=== PATIENT | male | born 1990 | race Caucasian/White ===

== ENCOUNTER 2017-10-27 16:01 | Emergency (ER) | payer OTHER ==
--- OUTSIDE RECORDS SUMMARY | 2017-10-27 16:03 | XMS REPORT ---
:1990 [facility] [address] [place] [address] Dr. Santana [address] [place] [address] Care Team Providers Name Role Phone BLANCA RENNER Unavailable Unavailable Problems This patient has no known problems. Allergies, Adverse Reactions, Alerts This patient has no known allergies or adverse reactions. Medications This patient has no known medications. Results Test Description Test Time Test Comments Text Results Atomic Results Result Comments CT ABDOMEN/PELVIS 2017-06-12 NPO 4 hours. Procedure: CT ABDOMEN/PELVIS W/O W/O CONTRAST 19:08:00 Do not CONTRASTExam Date: 06/12/2017 5:36 withhold meds PMOrdering Provider: BLANCA SIMSlinical Indication: low abd painComparison: NoneTechnique: Using a helical scanner, sequential axial imaging of the abdomen andpelvis was obtained without the administration of oral or IV contrast. The examextended from the level of the lung bases superiorly to the level of the pubicsymphysis inferiorly. 2-D sagittal and coronal reconstructed images wereobtained. This exam was performed according to the departmentaldose-optimization program which includes automated exposure control, adjustmentof the mA and/or kV according to patient size and/or use of iterativereconstruction techniques.Findings:The lung bases are clear. No basilar consolidation or effusion.The liver is normal in size and density. Hepatic contour is normal. There are nohepatic masses. Calcified granulomas in the liver. No intrahepatic ductaldilatation.The gallbladder is normal in size and density. There is no evidence ofcholelithiasis or cholecystitis by CT criteria.The spleen is normal in size and density. There are no intrinsic splenic masses.Calcified granulomas in the spleen. There is no evidence of a subcapsularhematoma or fluid collection.The pancreas is normal in size and density. There are no pancreaticcalcifications or masses. There is no pancreatic ductal dilatation.The adrenal glands are normal in size bilaterally. There are no adrenal massesbilaterally.The right kidney is normal in size and shape. There are no calculi, masses, orhydronephrosis.The left kidney is normal in size and shape. There are no calculi, masses, orhydronephrosis.Aorta is normal in size and diameter. There is no aneurysm.The IVC is normal in size and location.There is no lymphadenopathy in the abdomen, pelvis, or either inguinal region.There is no small or large bowel distention. There is no bowel thickening. Thereare no inflammatory changes in the abdomen or pelvis.The appendix is visualized and normal in diameter. There is no periappendicealsoft tissue stranding. No CT findings of appendicitis.Urinary bladder has a normal appearance.The prostate gland is normal in size.No inguinal masses.There is no skeletal lesion.IMPRESSION:1. No acute inflammatory change in the abdomen or pelvis.2. Normal appendix.3. No urinary tract calculi or hydronephrosis.4. Calcified granulomas in the liver and spleen.5. Exam otherwise negative.This final report was electronically signed by Dr Enzo Cabrera MD 06/12/20177:01 PMDictated By: ENZO CABRERA.Date: 06/12/2017 19:07 [facility] 2017-06-12 18:51:00 Test Item Value Reference Range Comments Glucose (test code=GLU) 101 mg/dl 75-110 BUN (test code=BUN) 9.0 mg/dl 6.0-17.0 Creatinine (test 1.0 mg/dl 0.4-1.2 code=CREA) Sodium (test code=NA) 141 mmol/l 137-145 Potassium (test code=K) 3.8 mmol/l 3.5-5.0 Chloride (test code=CL) 106 mmol/l 98-107 CO2 (test code=CO2) 24 mmol/l 22-30 Calcium (test code=CALC) 9.3 mg/dl 8.4-10.2 T Protein (test code=TP) 7.0 gm/dl 5.1-8.7 Albumin (test code=ALB) 4.4 gm/dl 3.5-4.6 A/G Ratio (test 1.7 % 1.1-2.2 code=AGRAT) AST (SGOT) (test code=AST) 20 U/L 11-36 ALT (SGPT) (test code=ALT) 35 U/L 11-40 Alkaline Phos (test 73 U/L 47-114 code=ALKP) Total Bilirubin (test 0.3 mg/dl 0.2-1.2 code=TBIL) Globulin (test code=GLOBU) 2.6 gm/dl 2.3-3.5 Calcium, Corrected (test 9.0 mg/dl 8.4-10.2 Various formulas exist for code=CALCCORR) corrected serum calcium results, each yielding different values. This corrected result was based on the formula: Corrected Calcium=SerumCalcium + [0.8 * ( 4 - SerumAlbumin)] EGFR if >60 (test code=EGFRAA) mL/min/1.73m\S\2 EGFR if Non- >60 Estimated Glomerular [place] (test mL/min/1.73m\S\2 Filtration Rate (eGFR) code=EGFRNA) Reference Intervals Decision Points for 18 years and older and average body mass: >=60 Does not exclude kidney disease. 30 - 59 Suggests moderate chronic kidney disease and indicates the need for further investigation including assessment of proteinuria and cardiovascular factors. < 30 Usually indicates a need for referral for assessment and management of chronic kidney failure. Anion Gap (test code=GAP) 11 CBC WITH AUTO [id number] 18:02:00 Test Item Value Reference Range Comments WBC (test code=WBC) 8.43 10\S\3/ul 4.80-10.80 RBC (test code=RBC) 4.97 10\S\6/ul 4.70-6.10 Hemoglobin (test code=HGB) 15.5 gm/dl 14.0-18.0 Hematocrit (test code=HCT) 41.6 % 42.0-50.0 MCV (test code=MCV) 83.7 fL 80.0-94.0 MCH (test code=MCH) 31.2 pg 27.0-31.0 MCHC (test code=MCHC) 37.3 gm/dl 33.0-37.0 RDW (test code=RDWVC) 11.5 % 11.5-14.5 Platelet (test code=PLT) 234 10\S\3/ul 130-400 MPV (test code=MPV) 10.0 fL 7.4-10.4 NE% (test code=NE) 59.2 % 42.0-75.0 LY% (test code=LY) 33.6 % 13.0-42.0 MO% (test code=MO) 6.2 % 4.0-14.0 EO% (test code=EO) 0.7 % 1.0-3.0 BA% (test code=BA) 0.2 % 1.0-3.0 IG% (test code=IG%) 0.1 % 0.0-0.4 NRBC, Auto (test code=NRBC_AUTO) 0 /100WBC 0-2 URINALYSIS WITHOUT [id number] 17:32:00 Test Item Value Reference Range Comments Color (test code=UCOLR) Yellow Lt. Yellow Clarity (test code=UCLAR) Clear Glucose (test code=UGLUC) Negative Negative Bilirubin (test code=UBILI) Negative Negative Ketones (test code=UKET) Negative Negative Specific [place] (test code=USPGR) 1.015 1.005-1.030 Blood (test code=UBLD) Negative Negative PH (test code=UPH) 7.0 4.5-8.0 Protein (test code=UPROT) Negative Negative Urobilinogen (test code=U UROB) 0.2 E.U./dL >0.2 Nitrite (test code=UNITR) Negative Negative Leukocyte Esterase (test code=ULEUK) Negative Negative
--- OUTSIDE RECORDS SUMMARY | 2017-10-27 16:03 | XMS REPORT | Continuity of Care Document ---
:1990 Author Organization [facility] Care Team Providers Name Role Phone BLANCA RENNER Admitting Physician BLANCA RENNER Attending Physician Hospital Admission Diagnosis Code Admission Diagnosis Date [id number] Lower abdominal pain Social History Element Code Description Smoking Start Date End Date Description Status Code System Smoking Status [id number] Heavy tobacco SNOMED-CT smoker Problems Code Code System Problem Name Start Date End Date Status 85666295 SNOMED-CT Pain in pelvis 06/12/2017 Active 41785191 SNOMED-CT Finding of increased 04/09/2017 Active blood pressure 00493279 SNOMED-CT Lymphadenopathy 04/09/2017 Active 56993639 SNOMED-CT Dental caries 04/09/2017 Active 855807618 SNOMED-CT Backache 02/04/2017 Active 741750408 SNOMED-CT Tinea cruris 02/04/2017 Active Medications RxNorm Medication Dose Route Instructions Indications Start End Status Date Date 932138 Amoxicillin 875 Oral orally every No 875 MG Oral milligram 12 hours (10 Longer Tablet days) Active 1498328 cetirizine 5 milligram Oral orally every No hydrochloride day Longer 5 MG Oral Active Tablet 5553 Hydroxyzine 25 milligram Oral orally 3 to 4 No times per day Longer as needed. Active (as needed for nausea and vomiting) 5640 Ibuprofen 5 Oral orally every pain No milligram/ki 8 hours as Longer logram needed. (; Active Not To Exceed Dosing Information: 800 mg) 790982 Ibuprofen 600 600 Oral orally every pain No MG Oral Tablet milligram 4 to 6 hours Longer as needed. (4 Active days) (; do not exceed 4 doses in a 24 hour period) 2982168 Nystatin 1 Topical topically 3 No 341553 UNT/ML application times per day Longer / Active Triamcinolone Acetonide 1 MG/ML Topical Cream Allergies Code Code Allergy Type Reaction Severity Start End Status System Substance Date Date 5933 RXNorm Iodine Drug Unknown Active allergy Results Laboratory Results Order: CBC PLATELET AUTO DIFF LOINC Test Result Flag Range Unit Date 12749-3 8.43 4.80-10.80 10^3/ul 06/12/2017 1Leukocytes^^correc 17:55 clay for nucleated erythrocytes:NCnc:P t:Bld:Qn:Automated count 789-8 4.97 4.70-6.10 10^6/ul 06/12/2017 1Erythrocytes:NCnc: 17:55 Pt:Bld:Qn:Automated count 718-7 15.5 14.0-18.0 gm/dl 06/12/2017 1Hemoglobin:MCnc:Pt 17:55 :Bld:Qn 4544-3 41.6 L 42.0-50.0 % 06/12/2017 1Hematocrit:VFr:Pt: 17:55 Bld:Qn:Automated count 787-2 83.7 80.0-94.0 fL 06/12/2017 1Erythrocyte mean 17:55 corpuscular volume:EntVol:Pt:RB C:Qn:Automated count 785-6 31.2 H 27.0-31.0 pg 06/12/2017 1Erythrocyte mean 17:55 corpuscular hemoglobin:EntMass: Pt:RBC:Qn:Automated count 786-4 37.3 H 33.0-37.0 gm/dl 06/12/2017 1Erythrocyte mean 17:55 corpuscular hemoglobin concentration:MCnc: Pt:RBC:Qn:Automated count 788-0 11.5 11.5-14.5 % 06/12/2017 1Erythrocyte 17:55 distribution width:Ratio:Pt:RBC: Qn:Automated count 777-3 234 130-400 10^3/ul 06/12/2017 1Platelets:NCnc:Pt: 17:55 Bld:Qn:Automated count 07057-3 1Platelet 10.0 A 7.4-10.4 fL 06/12/2017 mean 17:55 volume:EntVol:Pt:Bl d:Qn:Automated count 770-8 59.2 42.0-75.0 % 06/12/2017 1Neutrophils/100 17:55 leukocytes:NFr:Pt:B ld:Qn:Automated count 736-9 33.6 13.0-42.0 % 06/12/2017 1Lymphocytes/100 17:55 leukocytes:NFr:Pt:B ld:Qn:Automated count 5905-5 6.2 4.0-14.0 % 06/12/2017 1Monocytes/100 17:55 leukocytes:NFr:Pt:B ld:Qn:Automated count 713-8 0.7 L 1.0-3.0 % 06/12/2017 1Eosinophils/100 17:55 leukocytes:NFr:Pt:B ld:Qn:Automated count 706-2 0.2 L 1.0-3.0 % 06/12/2017 1Basophils/100 17:55 leukocytes:NFr:Pt:B ld:Qn:Automated count 1IG% 0.1 0.0-0.4 % 06/12/2017 17:55 1NRBC, 0 0-2 /100WBC 06/12/2017 Auto 17:55 Performing Lab Footnotes:[address] [place] [address] - [id number] - [address] [place], [place] [address]- MD: DIRECTOR CARTER GOMES _ Order: CMP COMPREHENSIVE METABOLIC PANEL LOINC Test Result Flag Range Unit Date 101 75-110 mg/dl 06/12/2017 1Glucose 17:55 1BUN 9 6.0-17.0 mg/dl 06/12/2017 17:55 1 0.4-1.2 mg/dl 06/12/2017 1Creatinine 17:55 141 137-145 mmol/l 06/12/2017 1Sodium 17:55 3.8 3.5-5.0 mmol/l 06/12/2017 1Potassium 17:55 106 98-107 mmol/l 06/12/2017 1Chloride 17:55 1CO2 24 22-30 mmol/l 06/12/2017 17:55 9.3 8.4-10.2 mg/dl 06/12/2017 1Calcium 17:55 1T 7 5.1-8.7 gm/dl 06/12/2017 Protein 17:55 4.4 3.5-4.6 gm/dl 06/12/2017 1Albumin 17:55 1A/G 1.7 1.1-2.2 % 06/12/2017 Ratio 17:55 1AST 20 11-36 U/L 06/12/2017 (SGOT) 17:55 1ALT 35 11-40 U/L 06/12/2017 (SGPT) 17:55 73 47-114 U/L 06/12/2017 1Alkaline Phos 17:55 1Total 0.3 0.2-1.2 mg/dl 06/12/2017 Bilirubin 17:55 2.6 2.3-3.5 gm/dl 06/12/2017 1Globulin 17:55 9 8.4-10.2 mg/dl 06/12/2017 1Calcium, 17:55 Corrected Note: Various formulas exist for corrected serum calcium results, each yielding different values. This corrected result was based on the formula: Corrected Calcium=SerumCalcium + [0.8 * ( 4 - SerumAlbumin)] 1EGFR >60 mL/min/1.73m^2 06/12/2017 17:55 if 1EGFR >60 mL/min/1.73m^2 06/12/2017 17:55 if Non- Note: Estimated Glomerular Filtration Rate (eGFR) Reference Intervals Decision Points for 18 years and older and average body mass: >=60 Does not exclude kidney disease. 30 - 59 Suggests moderate chronic kidney disease and indicates the need for further investigation including assessment of proteinuria and cardiovascular factors. < 30 Usually indicates a need for referral for assessment and management of chronic kidney failure. 1Anion 11 06/12/2017 17:55 Gap Performing Lab Footnotes:[address] [place] [address] - [id number] - [address] [place] [address] [place]- MD: DIRECTOR CARTER GOMES _ Order: URINALYSIS W/O MICROSCOPIC EXAM LOINC Test Result Flag Range Unit Date 78-6 Yellow A Lt. Yellow 06/12/2017 1Color:Type: 17:28 Pt:Urine:Nom 5767-9 Clear 06/12/2017 1Appearance: 17:28 Aper:Pt:Urin e:Nom 2349-9 Negative Negative 06/12/2017 1Glucose:ACn 17:28 c:Pt:Urine:O rd 5770-3 Negative Negative 06/12/2017 1Bilirubin:A 17:28 Cnc:Pt:Urine :Ord:Test strip 2514-8 Negative Negative 06/12/2017 1Ketones:ACn 17:28 c:Pt:Urine:O rd:Test strip 5811-5 1.015 A 1.005-1.030 06/12/2017 1Specific 17:28 gravity:Rden :Pt:Urine:Qn :Test strip 5794-3 Negative Negative 06/12/2017 1Hemoglobin: 17:28 ACnc:Pt:Urin e:Ord:Test strip 5803-2 7.0 A 4.5-8.0 06/12/2017 1pH:LsCnc:Pt 17:28 :Urine:Qn:Te st strip 45899-3 Negative Negative 06/12/2017 1Protein:ACn 17:28 c:Pt:Urine:O rd:Test strip 5818-0 0.2 E.U./dL A 0.2 06/12/2017 1Urobilinoge 17:28 n:ACnc:Pt:Ur ine:Ord:Test strip 5802-4 Negative Negative 06/12/2017 1Nitrite:ACn 17:28 c:Pt:Urine:O rd:Test strip 5799-2 Negative Negative 06/12/2017 1Leukocyte 17:28 esterase:ACn c:Pt:Urine:O rd:Test strip Performing Lab Footnotes:1[facility] - [id number] - [address] [place] [id number] JUAN C- MD: DIRECTOR CARTER GOMES _ Radiology Results Order: [id number] CT ABDOMEN/PELVIS W/O CONTRASTExam Completion Date:06/12/2017 17:36Procedure: CT ABDOMEN/PELVIS W/O CONTRAST Exam Date: 06/12/2017 5:36 PMOrdering Provider: BLANCA Leighical Indication: low abd painComparison: NoneTechnique: Using a helical scanner, sequential axial imaging of the abdomen andpelvis was obtained without the administration of oral or IV contrast. The examextended from the level of the lung bases superiorly to the level of the pubicsymphysis inferiorly. 2-D sagittal and coronal reconstructed images wereobtained. This exam was performed according to the departmentaldose-optimization program which includes automated exposure control,adjustmentof the mA and/or kV according to patient size and/or use of iterativereconstruction techniques.Findings: The lung bases are clear. No basilar consolidation [...] pancreatic ductal dilatation.The adrenal glands are normal insize bilaterally. There are no adrenal massesbilaterally.The right kidney is normal in size and shape. There are no calculi, masses, orhydronephrosis.The left kidney is normal in size and shape. There are no calculi, masses, orhydronephrosis.Aorta is normal in size and diameter. There is no aneurysm. The IVC is normal in size and location.There [...] in size.No inguinal masses.There is no skeletal lesion.IMPRESSION: 1. No acute inflammatory change in the abdomen or pelvis.2. Normal appendix.3. No urinary tract calculi or hydronephrosis.4. Calcified granulomas in the liver and spleen.5. Exam otherwise negative.This final report was electronically signed by Dr Enzo Cabrera MD 06/12/20177:01 PMDictated By: ENZO CABRERA.Date: 06/12/2017 19:07 Vital Signs Vitals Value Date Respiratory Rate 18 06/12/2017 O2% BldC Oximetry 98 06/12/2017 BP Systolic 128 mmHg 06/12/2017 BP Diastolic 68 mmHg 06/12/2017 Height 65 in 06/12/2017 Weight Measured 174.98 lbs 06/12/2017 BSA (Body Surface Area) 1.8689 06/12/2017 BMI (Body Mass Index) 29.1 06/12/2017 Body Temperature 98 F 06/12/2017 Plan of Care No data in the system Procedures Code Code System Procedure Name Target Site Date of Procedure CT 06/12/2017 19:08 ABDOMEN/PELVIS W/O CONTRAST Encounters Date Code Diagnosis Status (ICD10) - E32391I STRAIN MUSC FASCIA TENDON ABD Active INIT Immunizations No data in the system Functional Status Code Functional/Cognitive Code System Date Status Condition 626916049 Memory function normal SNOMED-CT 06/12/2017 Active 958156847 Orientated SNOMED-CT 06/12/2017 Active 693249746 Mentally alert SNOMED-CT 06/12/2017 Active 772511892 Ability to perform SNOMED-CT 06/12/2017 Active activities of everyday life (observable entity) 907136224 Stable gait (finding) SNOMED-CT 06/12/2017 Active Hospital Discharge Instructions No data in the system
--- NOTE | 2017-10-27 17:02 | ER ---
Nurse's Notes [facility] Emergency Department Name: Sunny Angel Age: 27 yrs Sex: Male : 1990 Arrival Date: 10/27/2017 Time: 16:03 Bed 13 Private MD: Diagnosis: Acute suppurative otitis media;Bronchitis, not specified as acute or chronic Presentation: 10/27 16:05 Presenting complaint: Patient states: Cough, cold, congestion, body aches for 3-4 days. la1 Transition of care: patient was not received from another setting of care. Onset of symptoms was October 27, 2017. Initial Sepsis Screen: Does the patient meet any 2 criteria? HR > 90 bpm. Does the patient have a suspected source of infection? No. Patient's initial sepsis screen is negative. Care prior to arrival: None. 16:05 Method Of Arrival: Ambulatory la1 16:05 Acuity: GILBERT 4 la1 Historical: - Allergies: 16:06 SEAFOOD; la1 - PMHx: 16:06 Heart Murmur; la1 - Immunization history:: Adult Immunizations up to date. - Social history:: Smoking status: Patient uses tobacco products, smokes one-half pack cigarettes per day. Vital Signs: 16:06 BP 138 / 99; Pulse 105; Resp 16; Temp 97.7(TE); Pulse Ox 100% on R/A; Weight 78.02 kg; la1 Height 5 ft. 5 in. (165.10 cm); 16:06 Body Mass Index 28.62 (78.02 kg, 165.10 cm) la1 ED Course: 16:03 Patient arrived in ED. as 16:05 Yordy Stone RN is Primary Nurse. la1 16:06 Triage completed. la1 16:06 Beatriz De Jesus FNP-C is PHCP. snw 16:06 Wilner Berman MD is Attending Physician. snw 16:06 Arm band placed on left wrist. la1 Administered Medications: 17:15 Drug: Augmentin 875 mg Route: PO; ph 17:15 Drug: predniSONE 40 mg Route: PO; ph 17:15 Drug: Pepcid 20 mg Route: PO; ph Outcome: 17:01 Discharge ordered by . snw 17:45 Patient left the ED. ph Signatures: Beatriz De Jesus FNP-C [employer] LECTURER-Csnw Toma Mulligan Lee, RN RN la1 Keyanna Oshea RN RN ph
--- NOTE | 2017-10-27 17:02 | EDPHYS ---
Physician Documentation [facility] Name: Sunny Angel Age: 27 yrs Sex: Male : 1990 Arrival Date: 10/27/2017 Time: 16:03 Bed 13 Private MD: ED Physician Wilner Berman HPI: 10/27 17:13 This 27 yrs old Male presents to ER via Ambulatory with complaints of Flu snw Symptoms. 17:13 The patient or guardian reports cough, flu symptoms, arthralgias, low-grade fever, snw myalgias, no appetite. Onset: The symptoms/episode began/occurred gradually, 3 day(s) ago, and became persistent. Associated signs and symptoms: Pertinent positives: earache, fever, rhinorrhea, sore throat. Severity of symptoms: At their worst the symptoms were moderate severe. The patient has experienced similar episodes in the past. states he saw a 911 Emergency Dispatcher who is working on getting him approval for Chantix. Historical: - Allergies: 16:06 SEAFOOD; la1 - PMHx: 16:06 Heart Murmur; la1 - Immunization history:: Adult Immunizations up to date. - Social history:: Smoking status: Patient uses tobacco products, smokes one-half pack cigarettes per day. ROS: 17:11 Eyes: Negative for injury, pain, redness, and discharge. snw 17:11 Neck: Negative for injury, pain, and swelling. 17:11 Cardiovascular: Negative for chest pain, palpitations, and edema. 17:11 Abdomen/GI: Negative for abdominal pain, nausea, vomiting, diarrhea, and constipation, Back: Negative for injury and pain, : Negative for injury, bleeding, discharge, and swelling, MS/Extremity: Negative for injury and deformity, Skin: Negative for injury, rash, and discoloration. 17:11 Neuro: Negative for headache, weakness, numbness, tingling, and seizure. 17:11 Constitutional: Positive for body aches, fatigue, fever, malaise. 17:11 ENT: Positive for ear pain, sore throat. 17:11 Respiratory: Positive for cough, wheezing. Exam: 17:11 Head/Face: Normocephalic, atraumatic. Eyes: Pupils equal round and reactive to light, snw extra-ocular motions intact. Lids and lashes normal. Conjunctiva and sclera are non-icteric and not injected. Cornea within normal limits. Periorbital areas with no swelling, redness, or edema. 17:11 Neck: Trachea midline, no thyromegaly or masses palpated, and no cervical lymphadenopathy. Supple, full range of motion without nuchal rigidity, or vertebral point tenderness. No Meningismus. Chest/axilla: Normal chest wall appearance and motion. Nontender with no deformity. No lesions are appreciated. 17:11 Abdomen/GI: Soft, non-tender, with normal bowel sounds. No distension or tympany. No guarding or rebound. No evidence of tenderness throughout. Back: No spinal tenderness. No costovertebral tenderness. Full range of motion. Skin: Warm, dry with normal turgor. Normal color with no rashes, no lesions, and no evidence of cellulitis. MS/ Extremity: Pulses equal, no cyanosis. Neurovascular intact. Full, normal range of motion. Neuro: Awake and alert, GCS 15, oriented to person, place, time, and situation. Cranial nerves II-XII grossly intact. Motor strength 5/5 in all extremities. Sensory grossly intact. Cerebellar exam normal. Normal gait. 17:11 Constitutional: The patient appears alert, uncomfortable. 17:11 ENT: TM's: bulging, on the left, erythema, fluid levels, Examination of the other ear shows no obvious abnormality, Nose: is normal, Mouth: is normal, Posterior pharynx: erythema, that is moderate, that is marked, Voice: is normal. 17:11 Cardiovascular: Rate: tachycardic. 17:11 Respiratory: the patient does not display signs of respiratory distress, Respirations: normal, Breath sounds: wheezing: bronchitic cough. Vital Signs: 16:06 BP 138 / 99; Pulse 105; Resp 16; Temp 97.7(TE); Pulse Ox 100% on R/A; Weight 78.02 kg; la1 Height 5 ft. 5 in. (165.10 cm); 16:06 Body Mass Index 28.62 (78.02 kg, 165.10 cm) la1 MDM: 16:30 Patient medically screened. snw 17:10 Data reviewed: vital signs, nurses notes. Data interpreted: Pulse oximetry: on room air snw is 100 %. Interpretation: normal. Counseling: I had a detailed discussion with the patient and/or guardian regarding: the historical points, exam findings, and any diagnostic results supporting the discharge/admit diagnosis, the presence of at least one elevated blood pressure reading (>120/80) during this emergency department visit, lab results, the need for outpatient follow up, to return to the emergency department if symptoms worsen or persist or if there are any questions or concerns that arise at home, smoking cessation. Special discussion: I have referred the patient to see his PCP for further evaluation of high blood pressure. Based on the history and exam findings, there is no indication for further emergent testing or inpatient evaluation. I discussed with the patient/guardian the need to see the primary care provider for further evaluation of the symptoms. 10/27 16:06 Order name: Strep; Complete Time: 16: la10/27 16:06 Order name: Flu; Complete Time: 16: la10/27 16:33 Order name: Throat Culture EDMS Administered Medications: 17:15 Drug: Augmentin 875 mg Route: PO; ph 17:15 Drug: predniSONE 40 mg Route: PO; ph 17:15 Drug: Pepcid 20 mg Route: PO; ph Disposition: 10/27/17 17:01 Discharged to Home. Impression: Acute suppurative otitis media, Bronchitis, not specified as acute or chronic. - Condition is Stable. - Discharge Instructions: Acute Bronchitis, Otitis Media, Adult, Fever, Adult, Hypertension, How to Use an Inhaler, Upper Respiratory Infection, Adult, Cool Mist Vaporizers, Cough, Adult, Rehydration, Adult. - Prescriptions for Augmentin 875- 125 mg Oral Tablet - take 1 tablet by ORAL route every 12 hours for 10 days; 20 tablet. Prednisone 20 mg Oral Tablet - take 2 tablet by ORAL route once daily for 5 days; 10 tablet. Albuterol Sulfate 90 mcg/actuation - inhale 1-2 puff by INHALATION route every 4-6 hours; 1 Inhaler. - Work release form, Medication Reconciliation Form, Thank You Letter, Antibiotic Education, Prescription Opioid Use form. - Follow up: Private Physician; When: 2 - 3 days; Reason: Recheck today's complaints, Continuance of care, Re-evaluation by your physician. Follow up: Emergency Department; When: As needed; Reason: Worsening of condition. Signatures: Dispatcher [employer] [facility]DC Beatriz De Jesus FNP-C FNP-Csnw Yordy Stone, RN RN la1 Keyanna Oshea, RN RN ph
[2017-10-27] MEDS ORDERED: FAMOTIDINE 20 MG TAB ONE (17:04)
[2017-10-27] MEDS ORDERED: AMOX/K CLAV 875 MG TAB ONE (17:04)
[2017-10-27] MEDS ORDERED: predniSONE 20 MG TAB ONE (17:04)
[2017-10-27 17:49] VITALS: BP 138/99; TEMP 97.7; O2SAT 100
== END 2017-10-27 17:45 | disposition home or self-care (01) ==
LOC: ER 16:01
DX: J40 Bronchitis, not specified as acute or chronic (principal); H66.002 Acute suppurative otitis media without spontaneous rupture of ear drum, left ear; Z91.013 Allergy to seafood
CPT/HCPCS: 87070; 87081; 87804; 99282; J7512

== ENCOUNTER 2017-11-23 14:43 | Emergency (ER) | payer SELFPAY ==
--- OUTSIDE RECORDS SUMMARY | 2017-11-23 14:44 | XMS REPORT ---
:1990 [facility] Address [address] [place] [address] Dr. Santana [address] [place] [address] Care Team Providers Name Role Phone BLANCA [...] 06/12/20177:01 PMDictated By: ENZO CABRERA.Date: 06/12/2017 19:07 [facility] 2017-06-12 18:51:00 Test Item Value Reference Range [...] ( 4 - SerumAlbumin)] EGFR if >60 mL/min/1.73m\S\2 (test code=EGFRAA) EGFR if Non- >60 mL/min/1.73m\S\2 Estimated Glomerular Salvadorean (test Filtration Rate (eGFR) code=EGFRNA) Reference Intervals Decision [...] Gap (test code=GAP) 11 CBC WITH AUTO [id number] 18:02:00 Test Item Value Reference Range Comments [...] (test code=NRBC_AUTO) 0 /100WBC 0-2 URINALYSIS WITHOUT [id number] 17:32:00 Test Item Value Reference Range Comments Color (test code=UCOLR) Yellow Lt. Yellow Clarity (test code=UCLAR) Clear Glucose (test code=UGLUC) Negative Negative Bilirubin (test code=UBILI) Negative Negative Ketones (test code=UKET) Negative Negative Specific [place] (test code=USPGR) 1.015 1.005-1.030 Blood (test code=UBLD) Negative Negative PH (test code=UPH) 7.0 4.5-8.0 Protein (test code=UPROT) Negative Negative Urobilinogen (test code=U UROB) 0.2 E.U./dL >0.2 Nitrite (test code=UNITR) Negative Negative Leukocyte Esterase (test code=ULEUK) Negative Negative
--- NOTE | 2017-11-23 15:21 | ER ---
Nurse's Notes [facility] Name: Sunny Angel Age: 27 yrs Sex: Male : 1990 Arrival Date: 11/23/2017 Time: 14:47 Bed Waiting Private MD: Diagnosis: ED Course: 11/23 14:47 Patient arrived in ED. sb2 14:55 Patient's name was called from ER lobby. No response. lk1 15:09 Patient's name was called from ER lobby. No response. lk1 15:20 Patient's name was called from ER lobby. No response. lk1 Administered Medications: No medications were administered Outcome: 15:21 Patient left the ED. lk1 Signatures: Viridiana Delgadillo RN RN lk1 Georgie Manley sb2
== END 2017-11-23 15:21 | disposition left against medical advice (07) ==
LOC: ER 14:43
DX: Z02.9 Encounter for administrative examinations, unspecified (principal)

== ENCOUNTER 2017-11-30 13:12 | Emergency (ER) | payer OTHER ==
--- OUTSIDE RECORDS SUMMARY | 2017-11-30 13:14 | XMS REPORT ---
:1990 [facility] Address [address] [place] [address] Dr. Santana [address] [place] [id number] Care Team Providers Name Role Phone BLANCA [...] 06/12/20177:01 PMDictated By: ENZO CABRERA.Date: 06/12/2017 19:07 [facility] 2017-06-12 18:51:00 Test Item Value Reference Range [...] EGFR if Non- >60 mL/min/1.73m\S\2 Estimated Glomerular Iraqi (test Filtration Rate (eGFR) code=EGFRNA) Reference Intervals [...] Gap (test code=GAP) 11 CBC WITH AUTO [id number] 18:02:00 Test Item Value Reference Range Comments [...] (test code=NRBC_AUTO) 0 /100WBC 0-2 URINALYSIS WITHOUT [id number] 17:32:00 Test Item Value Reference Range Comments Color (test code=UCOLR) Yellow Lt. Yellow Clarity (test code=UCLAR) Clear Glucose (test code=UGLUC) Negative Negative Bilirubin (test code=UBILI) Negative Negative Ketones (test code=UKET) Negative Negative Specific [place] (test code=USPGR) 1.015 1.005-1.030 Blood (test code=UBLD) Negative Negative PH (test code=UPH) 7.0 4.5-8.0 Protein (test code=UPROT) Negative Negative Urobilinogen (test code=U UROB) 0.2 E.U./dL >0.2 Nitrite (test code=UNITR) Negative Negative Leukocyte Esterase (test code=ULEUK) Negative Negative
[2017-11-30 14:24] LABS: Urine Blood NEGATIVE (NEG); Urine Glucose NEGATIVE (NEG); Urine Protein NEGATIVE (NEG); Urine pH 7.5 (5.0-7.0)
[2017-11-30] MEDS ORDERED: NA CHLORIDE 0.9% 1,000 ML ONE (14:25)
[2017-11-30] MEDS ORDERED: ONDANSETRON 4 MG/2 ML VIAL ONE (14:25)
[2017-11-30] MEDS ORDERED: KETOROLAC 30 MG/ML INJ ONE (14:25)
--- NOTE | 2017-11-30 14:33 | RAD REPORT ---
EXAM DESCRIPTION: CT - Stone Protocol - 11/30/2017 2:18 pm CLINICAL HISTORY: Flank pain. COMPARISON: None. TECHNIQUE: Axial images were obtained without oral or IV contrast. Lack of contrast limits solid org an and vascular assessment. The [id number] spans the entirety of the system partially obscuring uppermost abdomen and lung bases. Coronal reformatted images were obtained and reviewed. All CT scans are performed using dose optimization technique as appropriate and may include automated exposure control or mA/KV adjustment according to patient size. FINDINGS: The lower lung manning are clear. Imaged portions of the liver and spleen show no suspicious findings on non-contrast imaging. The panc reas and adrenal glands are normal.Small fat containing umbilical hernia. No pathologic lymphadenopat hy in the abdomen or pelvis. No urinary tract stones or obstructive uropathy. No bowel obstruction, free air, free fluid or abscess. Normal appendix noted. No significant bony abnormality. IMPRESSION: No urinary tract stones or obstructive uropathy.
[2017-11-30 14:38] LABS: Absolute Lymphocytes (CBC) 2.8 K/uL (0.7-4.9); Absolute Monocytes 0.7 K/uL (0.1-1.3); Absolute Neutrophil 5.6 K/uL (1.8-8.0); Basophils % 0.5 % (0-1.3); Eosinophils % 1.1 % (0-4.4); Hematocrit 45.1 % (39.6-49.0); Lymphocytes % 30.3 % (15.3-44.8); MCH 30.5 pg (27.0-35.0); MCV 87.9 fL (80-100); MPV 8.5 fL (7.6-11.3); Monocytes % 7.6 % (3.3-12.3); RBC Red Blood Cell Count 5.14 M/uL (4.33-5.43)
[2017-11-30 15:02] LABS: Bicarbonate 24 mEq/L (21-31); Glucose Level 95 mg/dL (65-120); Lipase 21 U/L (22-51); Potassium 3.9 mEq/L (3.6-5.0); Sodium Level 136 mEq/L (135-145)
[2017-11-30 15:09] LABS: ALT/SGPT 39 IU/L (10-60); AST/SGOT 25 IU/L (10-42); Albumin 4.2 g/dL (3.2-5.5); Alkaline Phosphatase 66 IU/L (42-121); Amylase Level 29 U/L (28-100); BUN Blood Urea Nitrogen 14 mg/dL (6-20); Bilirubin Direct 0.1 mg/dL (0-0.2); Bilirubin Total 0.5 mg/dL (0.3-1.2); Protein, Total 6.9 g/dL (6.0-8.3)
--- NOTE | 2017-11-30 15:22 | EDPHYS ---
Physician Documentation [facility] Name: Sunny Angel Age: 27 yrs Sex: Male : 1990 Arrival Date: 11/30/2017 Time: 13:15 Bed 30 Private MD: Eladio Berman E ED Physician Tyrone Harrison HPI: 11/30 14:16 This 27 yrs old Male presents to ER via Ambulatory with complaints of kb Abdominal Pain. 14:16 The patient presents with abdominal pain that is diffuse. Onset: The symptoms/episode kb began/occurred last night. The symptoms do not radiate. Associated signs and symptoms: Pertinent positives: nausea, Pertinent negatives: anorexia, blood in stools, chest pain, constipation, diarrhea, dysuria, fever, headache, hematuria, palpitations, shortness of breath, testicular pain, vomiting, vomiting blood. The symptoms are described as intermittent. Modifying factors: The symptoms are alleviated by nothing, the symptoms are aggravated by nothing. Severity of pain: At its worst the pain was mild moderate in the emergency department the pain is unchanged. The patient has not experienced similar symptoms in the past. The patient has not recently seen a physician. Historical: - Allergies: 13:27 SEAFOOD; ph - Home Meds: 13:27 Chantix oral oral [Active]; ph - PMHx: 13:27 Heart Murmur; Hernia; ph - PSHx: 13:27 oral sx; ph - Immunization history:: Adult Immunizations unknown. - Social history:: Smoking status: Patient uses tobacco products, smokes one-half pack cigarettes per day. - Ebola Screening: : No symptoms or risks identified at this time. ROS: 13:39 Constitutional: Negative for fever, chills, and weight loss, Cardiovascular: Negative kb for chest pain, palpitations, and edema, Respiratory: Negative for shortness of breath, cough, wheezing, and pleuritic chest pain, Back: Negative for injury and pain, : Negative for injury, bleeding, discharge, and swelling, MS/Extremity: Negative for injury and deformity, Skin: Negative for injury, rash, and discoloration, Neuro: Negative for headache, weakness, numbness, tingling, and seizure. 13:39 Abdomen/GI: Positive for abdominal pain, nausea, Negative for vomiting, diarrhea, constipation, abdominal cramps, abdominal distension, anorexia. Exam: 13:39 Constitutional: This is a well developed, well nourished patient who is awake, alert, kb and in no acute distress. Head/Face: Normocephalic, atraumatic. Chest/axilla: Normal chest wall appearance and motion. Nontender with no deformity. No lesions are appreciated. Cardiovascular: Regular rate and rhythm with a normal S1 and S2. No gallops, murmurs, or rubs. Normal PMI, no JVD. No pulse deficits. Respiratory: Lungs have equal breath sounds bilaterally, clear to auscultation and percussion. No rales, rhonchi or wheezes noted. No increased work of breathing, no retractions or nasal flaring. Back: No spinal tenderness. No costovertebral tenderness. Full range of motion. Skin: Warm, dry with normal turgor. Normal color with no rashes, no lesions, and no evidence of cellulitis. MS/ Extremity: Pulses equal, no cyanosis. Neurovascular intact. Full, normal range of motion. Neuro: Awake and alert, GCS 15, oriented to person, place, time, and situation. Cranial nerves II-XII grossly intact. Motor strength 5/5 in all extremities. Sensory grossly intact. Cerebellar exam normal. Normal gait. 13:39 Abdomen/GI: Inspection: abdomen appears normal, Bowel sounds: normal, Palpation: soft, in all quadrants, nontender, in the right lower quadrant, moderate abdominal tenderness, in the right upper quadrant, left upper quadrant and left lower quadrant. Vital Signs: 13:27 BP 127 / 84; Pulse 98; Resp 18; Temp 97.8; Pulse Ox 98% on R/A; Weight 81.65 kg; Height ph 5 ft. 5 in. (165.10 cm); Pain 7/10; 14:18 BP 120 / 89; Pulse 82; Resp 16; Pulse Ox 96% on R/A; kr2 16:36 BP 118 / 76; Pulse 88; Resp 17; Pulse Ox 98% on R/A; kr2 13:27 Body Mass Index 29.95 (81.65 kg, 165.10 cm) ph MDM: 13:31 Patient medically screened. [facility] 13:47 Data reviewed: vital signs, nurses notes. Data interpreted: Pulse oximetry: on room air kb is 98 %. Interpretation: normal. 15:20 Counseling: I had a detailed discussion with the patient and/or guardian regarding: the kb historical points, exam findings, and any diagnostic results supporting the discharge/admit diagnosis, lab results, radiology results, the need for outpatient follow up, a family practitioner, to return to the emergency department if symptoms worsen or persist or if there are any questions or concerns that arise at home. 11/30 13:38 Order name: Amylase, Serum; Complete Time: 15:20 kb 11/30 13:38 Order name: Basic Metabolic Panel; Complete Time: 15:20 kb 11/30 13:38 Order name: CBC with Diff; Complete Time: 14:45 kb 11/30 13:38 Order name: Hepatic Function; Complete Time: 15:20 kb 11/30 13:38 Order name: Lipase; Complete Time: 15:20 kb 11/30 14:22 Order name: Urine Dipstick--Ancillary (enter results); Complete Time: 14:30 ag 11/30 13:38 Order name: IV Saline Lock; Complete Time: 14:14 kb 11/30 13:38 Order name: Labs collected and sent; Complete Time: 14:14 kb 11/30 13:38 Order name: Urine Dipstick-Ancillary (obtain specimen); Complete Time: 14:14 kb 11/30 14:07 Order name: CT Stone Protocol; Complete Time: 14:34 kb Administered Medications: 14:28 Drug: TORadol 30 mg Route: IVP; Site: left antecubital; kr2 16:37 Follow up: Response: No adverse reaction; Pain is decreased kr2 14:29 Drug: NS 0.9% 1000 ml Route: IV; Rate: 1000 ml; Site: left antecubital; kr2 16:37 Follow up: Response: No adverse reaction; IV Status: Completed infusion kr2 14:29 Drug: Zofran 4 mg Route: IVP; Site: left antecubital; kr2 16:37 Follow up: Response: No adverse reaction kr2 Disposition: 11/30/17 15:21 Discharged to Home. Impression: Generalized abdominal pain. - Condition is Stable. - Discharge Instructions: Abdominal Pain, Adult, [id number]. - Prescriptions for Bentyl 20 mg Oral Tablet - take 1 tablet by ORAL route every 6 hours As needed; 20 tablet. Zofran 4 mg Oral Tablet - take 1 tablet by ORAL route every 6 hours As needed; 20 tablet. - Medication Reconciliation Form, Thank You Letter, Antibiotic Education, Prescription Opioid Use form. - Follow up: Emergency Department; When: As needed; Reason: Worsening of condition. Follow up: Private Physician; When: 2 - 3 days; Reason: Recheck today's complaints, Continuance of care, Re-evaluation by your physician. Addendum: 12/04/2017 09:03 Co-signature as Attending Physician, Tyrone Harrison MD I agree with the assessment and c davila plan of care. Signatures: Dispatcher [employer] EDMS Latasha Gonzales, SUPERVISOR LAUNDRY-C SUPERVISOR LAUNDRY-Tyrone Jackson MD MD cha Hall, Patricia, RN RN Kendy Berger RN RN kr2 Corrections: (The following items were deleted from the chart) 11/30 16:38 15:21 11/30/2017 15:21 Discharged to Home. Impression: Generalized abdominal pain. kr2 Condition is Stable. Forms are Medication Reconciliation Form, Thank You Letter, Antibiotic Education, Prescription Opioid Use. Follow up: Emergency Department; When: As needed; Reason: Worsening of condition. Follow up: Private Physician; When: 2 - 3 days; Reason: Recheck today's complaints, Continuance of care, Re-evaluation by your physician. kb
--- NOTE | 2017-11-30 15:22 | ER ---
Nurse's Notes [facility] Name: Sunny Anegl Age: 27 yrs Sex: Male : 1990 Arrival Date: 11/30/2017 Time: 13:15 Bed 30 Private MD: Eladio Berman E Diagnosis: Generalized abdominal pain Presentation: 11/30 13:22 Presenting complaint: Patient states: " I woke up yesterday morning w/ excruciating ph abdominal pain, it hurts all over and on both sides of my ribs, and when I take a deep breath my lungs hurt." Pt reports diffuse abdominal pain that is worse when standing, also c/o nausea, denies V/D, reports last BM 2 days ago. States, " I've been feeling jittery too.". Transition of care: patient was not received from another setting of care. Onset of symptoms was November 30, 2017. Risk Assessment: Do you want to hurt yourself or someone else? Patient reports no desire to harm self or others. Initial Sepsis Screen: Does the patient meet any 2 criteria? No. Patient's initial sepsis screen is negative. Does the patient have a suspected source of infection? No. Patient's initial sepsis screen is negative. Care prior to arrival: None. 13:22 Method Of Arrival: Ambulatory ph 13:22 Acuity: GILBERT 3 ph Triage Assessment: 14:15 General: Appears in no apparent distress. comfortable, well groomed, well developed, kr2 well nourished, Behavior is calm, cooperative, appropriate for age. 14:16 Pain: Complains of pain in abdomen Pain currently is 7 out of 10 on a pain scale. kr2 Quality of pain is described as sharp, Is continuous. GI: Abdomen is flat, non-distended. Historical: - Allergies: 13:27 SEAFOOD; ph - Home Meds: 13:27 Chantix oral oral [Active]; ph - PMHx: 13:27 Heart Murmur; Hernia; ph - PSHx: 13:27 oral sx; ph - Immunization history:: Adult Immunizations unknown. - Social history:: Smoking status: Patient uses tobacco products, smokes one-half pack cigarettes per day. - Ebola Screening: : No symptoms or risks identified at this time. Screenin:14 Abuse screen: Denies threats or abuse. Denies injuries from another. Nutritional kr2 screening: No deficits noted. Tuberculosis screening: No symptoms or risk factors identified. Fall Risk None identified. Assessment: 14:16 GI: Bowel sounds present X 4 quads. Abd is soft and non tender X 4 quads. kr2 14:17 General: Appears in no apparent distress. comfortable, well groomed, well developed, kr2 well nourished, Behavior is calm, cooperative, appropriate for age. Pain: Complains of pain in abdomen Pain currently is 7 out of 10 on a pain scale. Neuro: Level of Consciousness is awake, alert, obeys commands, Oriented to person, place, time, situation, Appropriate for age. Cardiovascular: Capillary refill < 3 seconds in bilateral fingers Patient's skin is warm and dry. Respiratory: Airway is patent Respiratory effort is even, unlabored, Respiratory pattern is regular, symmetrical. : Urine is cloudy. EENT: Oral mucosa is moist. Derm: Skin is intact, is healthy with good turgor, Skin is pink, warm \\T\\ dry. Musculoskeletal: Circulation, motion, and sensation intact. 15:15 Reassessment: Patient appears in no apparent distress at this time. Patient and/or kr2 family updated on plan of care and expected duration. Pain level reassessed. Patient is alert, oriented x 3, equal unlabored respirations, skin warm/dry/pink. Patient states feeling better. 16:35 Reassessment: Patient appears in no apparent distress at this time. Patient and/or kr2 family updated on plan of care and expected duration. Pain level reassessed. Patient is alert, oriented x 3, equal unlabored respirations, skin warm/dry/pink. Patient states symptoms have improved. Vital Signs: 13:27 BP 127 / 84; Pulse 98; Resp 18; Temp 97.8; Pulse Ox 98% on R/A; Weight 81.65 kg; Height ph 5 ft. 5 in. (165.10 cm); Pain 7/10; 14:18 BP 120 / 89; Pulse 82; Resp 16; Pulse Ox 96% on R/A; kr2 16:36 BP 118 / 76; Pulse 88; Resp 17; Pulse Ox 98% on R/A; kr2 13:27 Body Mass Index 29.95 (81.65 kg, 165.10 cm) ph ED Course: 13:15 Patient arrived in ED. mr 13:15 Eladio Berman MD is Private Physician. mr 13:25 Triage completed. ph 13:28 Arm band placed on. ph 13:30 Latasha Gonzales FNP-C is [facility]. kb 13:30 Tyrone Harrison MD is Attending Physician. kb 13:49 Kendy Shah, SAM is Primary Nurse. kr2 14:00 Inserted saline lock: 22 gauge in left antecubital area, using aseptic technique. Blood kr2 collected. 14:[address] via wheelchair. vm2 14:16 Patient has correct armband on for positive identification. Bed in low position. Call kr2 light in reach. Side rails up X 1. Pulse ox on. NIBP on. Door closed. Warm blanket given. Head of bed elevated. 14:17 CT completed. Patient tolerated procedure well. Patient moved back from CT. vm2 14:18 CT Stone Protocol In Process Unspecified. EDMS 16:38 No provider procedures requiring assistance completed. IV discontinued, intact, kr2 bleeding controlled, No redness/swelling at site. Pressure dressing applied. Administered Medications: 14:28 Drug: TORadol 30 mg Route: IVP; Site: left antecubital; kr2 16:37 Follow up: Response: No adverse reaction; Pain is decreased kr2 14:29 Drug: NS 0.9% 1000 ml Route: IV; Rate: 1000 ml; Site: left antecubital; kr2 16:37 Follow up: Response: No adverse reaction; IV Status: Completed infusion kr2 14:29 Drug: Zofran 4 mg Route: IVP; Site: left antecubital; kr2 16:37 Follow up: Response: No adverse reaction kr2 Outcome: 15:21 Discharge ordered by . kb 16:38 Discharged to home ambulatory, with friend. kr2 16:38 Condition: good 16:38 Discharge instructions given to patient, family, Instructed on discharge instructions, follow up and referral plans. medication usage, Demonstrated understanding of instructions, follow-up care, medications, Prescriptions given X 2. 16:38 Patient left the ED. kr2 Signatures: Dispatcher [employer] EDMS Latasha Gonzales FNP-C SENIOR ASIC DESIGN ENGINEER-Gayla Boston mr Keyanna Oshea, RN RN Kell Arboleda 2 Kendy Shah, RN RN kr2
[2017-11-30 16:46] VITALS: TEMP 97.8
[2017-11-30 16:48] VITALS: BP 118/76; O2SAT 98
== END 2017-11-30 16:38 | disposition home or self-care (01) ==
LOC: ER 13:12
DX: R10.84 Generalized abdominal pain (principal); R01.1 Cardiac murmur, unspecified; F17.210 Nicotine dependence, cigarettes, uncomplicated; Z91.013 Allergy to seafood
CPT/HCPCS: 36415; 74176; 76377; 80048; 80076; 81003; 82150; 83690; 85025; 96361; 96374; 96375; 99284; J2405; J7030

== ENCOUNTER 2018-01-05 12:40 | Emergency (ER) | payer OTHER ==
--- OUTSIDE RECORDS SUMMARY | 2018-01-05 12:43 | XMS REPORT ---
:1990 [facility] Address [address] [place] [address] Dr. [address] [place] [address] Care Team Providers Name Role Phone BLANCA [...] 06/12/20177:01 PMDictated By: ENZO CABRERA.Date: 06/12/2017 19:07 [facility] 2017-06-12 18:51:00 Test Item Value Reference [...] EGFR if Non- >60 mL/min/1.73m\S\2 Estimated Glomerular Israeli (test Filtration Rate (eGFR) code=EGFRNA) Reference Intervals [...] Gap (test code=GAP) 11 CBC WITH AUTO [id number] 18:02:00 Test Item Value Reference Range Comments [...] (test code=NRBC_AUTO) 0 /100WBC 0-2 URINALYSIS WITHOUT [id number] 17:32:00 Test Item Value Reference Range Comments Color (test code=UCOLR) Yellow Lt. Yellow Clarity (test code=UCLAR) Clear Glucose (test code=UGLUC) Negative Negative Bilirubin (test code=UBILI) Negative Negative Ketones (test code=UKET) Negative Negative Specific [place] (test code=USPGR) 1.015 1.005-1.030 Blood (test code=UBLD) Negative Negative PH (test code=UPH) 7.0 4.5-8.0 Protein (test code=UPROT) Negative Negative Urobilinogen (test code=U UROB) 0.2 E.U./dL >0.2 Nitrite (test code=UNITR) Negative Negative Leukocyte Esterase (test code=ULEUK) Negative Negative
[2018-01-05] MEDS ORDERED: MECLIZINE HCL 12.5 MG TAB ONE (13:35)
[2018-01-05] MEDS ORDERED: ONDANSETRON 4 MG (ODT) TAB ONE (13:36)
--- NOTE | 2018-01-05 14:00 | RAD REPORT ---
EXAM DESCRIPTION: CT - Head Brain Wo Cont - 01/05/2018 1:41 pm CLINICAL HISTORY: Dizziness, facial pain, headache COMPARISON: CT study December 2012 TECHNIQUE: Axial 5 mm thick images of the head were obtained without IV contrast. All CT scans are performed using dose optimization technique as appropriate and may include automated exposure control or mA/KV adjustment according to patient size. FINDINGS: No intracranial hemorrhage, mass, edema or shift of mid-line structures. No acute infarcti on changes seen. No abnormal extra-axial fluid collections. Ventricles are normal. Mastoid air cells and visualized portions of the paranasal sinuses are clear. No acute bony findings. IMPRESSION: Negative non-contrast CT head examination. No significant change from comparison.
--- NOTE | 2018-01-05 15:33 | ER ---
Nurse's Notes [facility] Name: Sunny Angel Age: 27 yrs Sex: Male : 1990 Arrival Date: 01/05/2018 Time: 12:43 Bed 27 Private MD: Eladio Berman E Diagnosis: vertigo;paresthesia;trapezius pain Presentation: 01/05 12:48 Presenting complaint: Patient states: "I got a back injury awhile back, and because of aj1 it I had to come in a 3 months ago for my neck. Then last night my neck starting hurting again really bad and I couldn't sleep. I woke up this morning with the whole left side of my face hurting and the back of my head feels like its falling asleep. I'm really dizzy whenever I stand up". Transition of care: patient was not received from another setting of care. Onset of symptoms was January 04, 2018. Risk Assessment: Do you want to hurt yourself or someone else? Patient reports no desire to harm self or others. Initial Sepsis Screen: Does the patient meet any 2 criteria? No. Patient's initial sepsis screen is negative. Does the patient have a suspected source of infection? No. Patient's initial sepsis screen is negative. Care prior to arrival: None. 12:48 Method Of Arrival: Ambulatory aj1 12:48 Acuity: GILBERT 3 aj1 Triage Assessment: 12:52 General: Appears in no apparent distress. uncomfortable, Behavior is calm, cooperative, aj1 appropriate for age. Pain: Complains of pain in neck Pain does not radiate. Pain currently is 7 out of 10 on a pain scale. Neuro: Level of Consciousness is awake, alert, obeys commands, Oriented to person, place, time, situation, Moves all extremities. Full function Gait is steady, Speech is normal, Facial symmetry appears normal, Pupils are PERRLA, paresthesias in scalp. Cardiovascular: Patient's skin is warm and dry. Respiratory: Airway is patent Respiratory effort is even, unlabored, Respiratory pattern is regular, symmetrical. Historical: - Allergies: 12:52 SEAFOOD; aj1 12:52 Lasix; aj1 - Home Meds: 12:52 None [Active]; aj1 - PMHx: 12:52 Heart Murmur; Hernia; aj1 - PSHx: 12:52 oral surgery; aj1 - Immunization history:: Flu vaccine is not up to date. - Social history:: Smoking status: Patient uses tobacco products, smokes one-half pack cigarettes per day. - Ebola Screening: : Patient denies travel to an Ebola-affected area in the 21 days before illness onset. Screenin:55 Abuse screen: Denies threats or abuse. Denies injuries from another. Nutritional kr2 screening: No deficits noted. Tuberculosis screening: No symptoms or risk factors identified. Fall Risk None identified. Assessment: 13:00 General: Appears in no apparent distress. comfortable, well groomed, well developed, kr2 well nourished, Behavior is calm, cooperative, appropriate for age. Pain: Complains of pain in scalp and neck Pain currently is 7 out of 10 on a pain scale. Quality of pain is described as aching, tingling, Is continuous, Alleviated by nothing. Neuro: Level of Consciousness is awake, alert, obeys commands, Oriented to person, place, time, situation, Appropriate for age Excellence Consultant are equal bilaterally Speech is normal, Facial symmetry appears normal, Pupils are PERRLA, Reports dizziness, headache paresthesias in scalp. Cardiovascular: Capillary refill < 3 seconds in bilateral fingers Patient's skin is warm and dry. Respiratory: Airway is patent Respiratory effort is even, unlabored, Respiratory pattern is regular, symmetrical. GI: Abdomen is flat, non-distended. : No signs and/or symptoms were reported regarding the genitourinary system. EENT: Oral mucosa is moist. Derm: Skin is intact, is healthy with good turgor, Skin is pink, warm \\T\\ dry. Musculoskeletal: Circulation, motion, and sensation intact. Range of motion: intact in all extremities. 14:00 Reassessment: Patient appears in no apparent distress at this time. Patient and/or kr2 family updated on plan of care and expected duration. Pain level reassessed. Patient is alert, oriented x 3, equal unlabored respirations, skin warm/dry/pink. 15:05 Reassessment: Patient appears in no apparent distress at this time. Patient and/or kr2 family updated on plan of care and expected duration. Pain level reassessed. Patient is alert, oriented x 3, equal unlabored respirations, skin warm/dry/pink. Patient states feeling better. Vital Signs: 12:52 BP 141 / 102; Pulse 93; Resp 18; Temp 98.0(O); Pulse Ox 97% on R/A; Weight 79.38 kg; aj1 Height 5 ft. 5 in. (165.10 cm); Pain 7/10; 13:45 BP 115 / 70; Pulse 70; Resp 17; Pulse Ox 99% on R/A; kr2 14:52 BP 112 / 71; Pulse 66; Resp 17; Pulse Ox 98% on R/A; kr2 15:45 BP 129 / 80; Pulse 72; Resp 17; Pulse Ox 100% ; kr2 12:52 Body Mass Index 29.12 (79.38 kg, 165.10 cm) aj1 ED Course: 12:43 Patient arrived in ED. sb2 12:45 Eladio Berman MD is Private Physician. sb2 12:51 Triage completed. aj1 12:52 Arm band placed on Patient placed in an internal wait recliner, Patient notified of aj1 wait time. 12:59 Kendy Shah RN is Primary Nurse. kr2 13:00 Casey Castaneda PA is PHCP. jmm 13:00 Fredi Kelley MD is Attending Physician. jmm 13:40 CT completed. Patient moved to CT via wheelchair. Patient moved back from CT. cw1 13:41 CT Head Brain wo Cont In Process Unspecified. EDMS 14:55 Patient has correct armband on for positive identification. Bed in low position. Call kr2 light in reach. Side rails up X 1. Pulse ox on. NIBP on. Door closed. Warm blanket given. Head of bed elevated. 15:33 Hector Beal MD is Referral Physician. jmm 15:44 No provider procedures requiring assistance completed. Patient did not have IV access kr2 during this emergency room visit. Administered Medications: 13:35 Drug: Meclizine 50 mg Route: PO; kr2 15:14 Follow up: Response: No adverse reaction kr2 13:35 Drug: Zofran 4 mg Route: PO; kr2 15:14 Follow up: Response: No adverse reaction; Nausea is decreased kr2 Outcome: 15:33 Discharge ordered by . jmm 15:44 Discharged to home ambulatory, with family. kr2 15:44 Condition: good 15:44 Discharge instructions given to patient, family, Instructed on discharge instructions, follow up and referral plans. medication usage, Demonstrated understanding of instructions, follow-up care, medications, Prescriptions given X 2. 15:45 Patient left the ED. kr2 Signatures: Dispatcher [employer] EDMS Haylee Cohen, RN RN aj1 Casey Castaneda PA PA jmm Woodley, Crystal cw1 Kendy Shah RN RN kr2 Georgie Manley sb2
--- NOTE | 2018-01-05 15:34 | EDPHYS ---
Physician Documentation [facility] Name: Sunny Angel Age: 27 yrs Sex: Male : 1990 Arrival Date: 01/05/2018 Time: 12:43 Bed 27 Private MD: Eladio Berman E ED Physician Fredi Kelley HPI: 01/05 13:29 This 27 yrs old Male presents to ER via Ambulatory with complaints of jmm Dizziness, Neck Pain, >24Hrs Old, Numbness Of Face. 13:29 The patient presents with dizziness, feeling off balance. Onset: The symptoms/episode jmm began/occurred acutely, this morning. Associated signs and symptoms: Pertinent positives: numbness. This is a 27 year old male with a history of heart murmur presents to the ED with dizziness beginning just prior to arrival. Patient states he developed left lateral neck pain last night and awoke with numbness to the left side of his face. Patient denies weakness to the left side of his body. Denies chest pain or shortness of breath. . Historical: - Allergies: 12:52 SEAFOOD; aj1 12:52 Lasix; aj1 - Home Meds: 12:52 None [Active]; aj1 - PMHx: 12:52 Heart Murmur; Hernia; aj1 - PSHx: 12:52 oral surgery; aj1 - Immunization history:: Flu vaccine is not up to date. - Social history:: Smoking status: Patient uses tobacco products, smokes one-half pack cigarettes per day. - Ebola Screening: : Patient denies travel to an Ebola-affected area in the 21 days before illness onset. ROS: 13:29 Constitutional: Negative for fever, chills, and weight loss, Cardiovascular: Negative jmm for chest pain, palpitations, and edema, Respiratory: Negative for shortness of breath, cough, wheezing, and pleuritic chest pain. 13:29 Neuro: Positive for dizziness, headache. 13:29 Neuro: Positive for numbness. 13:29 All other systems are negative. Exam: 13:29 Head/Face: atraumatic. jmm 13:29 Constitutional: The patient appears in no acute distress, alert, awake. 13:29 Eyes: Nystagmus: horizontal on gaze to the left. . 13:29 Cardiovascular: Rate: normal, Rhythm: regular, Pulses: no pulse deficits are appreciated. 13:29 Respiratory: the patient does not display signs of respiratory distress, Respirations: normal, Breath sounds: are clear throughout. 13:29 Musculoskeletal/extremity: ROM: intact in all extremities. 13:29 Skin: Appearance: Color: normal in color. 13:29 Neuro: Orientation: is normal, Mentation: is normal, Memory: is normal. 13:29 Neuro: Cerebellar function: normal finger to nose testing. 13:29 Psych: Behavior/mood is pleasant, cooperative. Vital Signs: 12:52 BP 141 / 102; Pulse 93; Resp 18; Temp 98.0(O); Pulse Ox 97% on R/A; Weight 79.38 kg; aj1 Height 5 ft. 5 in. (165.10 cm); Pain 7/10; 13:45 BP 115 / 70; Pulse 70; Resp 17; Pulse Ox 99% on R/A; kr2 14:52 BP 112 / 71; Pulse 66; Resp 17; Pulse Ox 98% on R/A; kr2 15:45 BP 129 / 80; Pulse 72; Resp 17; Pulse Ox 100% ; kr2 12:52 Body Mass Index 29.12 (79.38 kg, 165.10 cm) aj1 MDM: 13:26 Patient medically screened. [facility] 15:30 ED course: facial motor function is intact, normal cerebellar exam, patient's symptoms jmm are relieved with meclizine. CT Imaging reveals no acute process. I do not currently suspect central vertigo. Patient is encouraged to follow up with neurology for further evaluation. Patient otherwise given strict return precautions. Dr. Kelley evaluated the patient. . 15:30 Counseling: I had a detailed discussion with the patient and/or guardian regarding: the [facility] presence of at least one elevated blood pressure reading (>120/80) during this emergency department visit. 15:32 Data reviewed: vital signs, nurses notes. Counseling: I had a detailed discussion with [facility] the patient and/or guardian regarding: the historical points, exam findings, and any diagnostic results supporting the discharge/admit diagnosis, radiology results, the need for outpatient follow up, to return to the emergency department if symptoms worsen or persist or if there are any questions or concerns that arise at home. 01/05 13:29 Order name: CT Head Brain wo Cont; Complete Time: 14:05 [facility] Administered Medications: 13:35 Drug: Meclizine 50 mg Route: PO; kr2 15:14 Follow up: Response: No adverse reaction kr2 13:35 Drug: Zofran 4 mg Route: PO; kr2 15:14 Follow up: Response: No adverse reaction; Nausea is decreased kr2 Disposition: 17:30 Co-signature as Attending Physician, Fredi Kelley MD. rn Disposition: 01/05/18 15:33 Discharged to Home. Impression: vertigo, paresthesia, trapezius pain. - Condition is Stable. - Discharge Instructions: Back Pain, Adult, Paresthesia, Vertigo. - Prescriptions for Prednisone 20 mg Oral Tablet - take 3 tablet by ORAL route once daily for 5 days; 15 tablet. Zanaflex 4 mg Oral Tablet - take 1 tablet by ORAL route every 8 hours As needed; 20 tablet. - Medication Reconciliation Form, Thank You Letter, Antibiotic Education, Prescription Opioid Use form. - Follow up: Hector Beal MD; When: 2 - 3 days; Reason: Continuance of care. Signatures: Dispatcher [employer] EDNV Haylee Cohen RN RN aj1 Casey Castaneda PA PA jmm Nieto, Roman, MD MD rn Reaves, Karey, RN RN kr2 Corrections: (The following items were deleted from the chart) 15:45 15:33 01/05/2018 15:33 Discharged to Home. Impression: vertigo; paresthesia; trapezius kr2 pain. Condition is Stable. Forms are Medication Reconciliation Form, Thank You Letter, Antibiotic Education, Prescription Opioid Use. Follow up: Hector Beal; When: 2 - 3 days; Reason: Continuance of care. [facility]
[2018-01-05 15:49] VITALS: TEMP 98
[2018-01-05 15:52] VITALS: BP 129/80; O2SAT 100
== END 2018-01-05 15:45 | disposition home or self-care (01) ==
LOC: ER 12:40
DX: R42 Dizziness and giddiness (principal); R20.2 Paresthesia of skin; M79.1 Myalgia; Z88.8 Allergy status to other drugs, medicaments and biological substances; F17.210 Nicotine dependence, cigarettes, uncomplicated; Z91.013 Allergy to seafood
CPT/HCPCS: 70450; 99284

== ENCOUNTER 2018-02-02 19:25 | Emergency (ER) | payer OTHER ==
--- OUTSIDE RECORDS SUMMARY | 2018-02-02 19:28 | XMS REPORT ---
:1990 [facility] Address [address] [place] [address] Dr. Snatana [address] [place] [id number] Care Team Providers Name Role Phone BLANCA [...] 06/12/20177:01 PMDictated By: ENZO CABRERA.Date: 06/12/2017 19:07 [facility] 2017-06-12 18:51:00 Test Item Value Reference Range [...] EGFR if Non- >60 mL/min/1.73m\S\2 Estimated Glomerular [place] (test Filtration Rate (eGFR) code=EGFRNA) Reference Intervals [...] Gap (test code=GAP) 11 CBC WITH AUTO [id number] 18:02:00 Test Item Value Reference Range Comments [...] (test code=NRBC_AUTO) 0 /100WBC 0-2 URINALYSIS WITHOUT [id number] 17:32:00 Test Item Value Reference Range Comments Color (test code=UCOLR) Yellow Lt. Yellow Clarity (test code=UCLAR) Clear Glucose (test code=UGLUC) Negative Negative Bilirubin (test code=UBILI) Negative Negative Ketones (test code=UKET) Negative Negative Specific [place] (test code=USPGR) 1.015 1.005-1.030 Blood (test code=UBLD) Negative Negative PH (test code=UPH) 7.0 4.5-8.0 Protein (test code=UPROT) Negative Negative Urobilinogen (test code=U UROB) 0.2 E.U./dL >0.2 Nitrite (test code=UNITR) Negative Negative Leukocyte Esterase (test code=ULEUK) Negative Negative
--- NOTE | 2018-02-02 20:48 | ER ---
Nurse's Notes [facility] Name: Sunny Angel Age: 27 yrs Sex: Male : 1990 Arrival Date: 02/02/2018 Time: 19:32 Bed 15 Private MD: Diagnosis: Acute pharyngitis Presentation: 02/02 19:37 Presenting complaint: Patient states: Sore throat x 1 week. Transition of care: patient aj was not received from another setting of care. Onset of symptoms was January 27, 2018. Risk Assessment: Do you want to hurt yourself or someone else? Patient reports no desire to harm self or others. Initial Sepsis Screen: Does the patient meet any 2 criteria? No. Patient's initial sepsis screen is negative. Does the patient have a suspected source of infection? No. Patient's initial sepsis screen is negative. Care prior to arrival: None. 19:37 Method Of Arrival: Ambulatory 19:37 Acuity: GILBERT 4 aj Triage Assessment: 19:38 General: Appears in no apparent distress. comfortable, Behavior is calm, cooperative, aj appropriate for age. EENT: Reports pain when swallowing. EENT: Throat is reddened. Neuro: Level of Consciousness is awake, alert, obeys commands, Oriented to person, place, time, situation, Appropriate for age. Respiratory: Airway is patent Respiratory effort is even, unlabored, Respiratory pattern is regular, symmetrical. Derm: Skin is intact, is healthy with good turgor, Skin is pink, warm \T\ dry. normal. Historical: - Allergies: 19:38 Lasix; aj 19:38 SEAFOOD; aj - Home Meds: 19:38 Amoxicillin Oral [Active]; Prednisone Oral [Active]; aj - PMHx: 19:38 Heart Murmur; Hernia; aj - PSHx: 19:38 oral surgery; aj - Immunization history:: Adult Immunizations up to date. - Social history:: Smoking status: Patient uses tobacco products, smokes one-half pack cigarettes per day. - Ebola Screening: : Patient negative for fever greater than or equal to 101.5 degrees Fahrenheit, and additional compatible Ebola Virus Disease symptoms Patient denies exposure to infectious person Patient denies travel to an Ebola-affected area in the 21 days before illness onset No symptoms or risks identified at this time. Screenin:00 Abuse screen: Denies threats or abuse. Denies injuries from another. Nutritional aa1 screening: No deficits noted. Tuberculosis screening: No symptoms or risk factors identified. Fall Risk None identified. Assessment: 20:00 General: Appears in no apparent distress. comfortable, Behavior is calm, cooperative, aa1 appropriate for age. Pain: Complains of pain in neck. Neuro: Level of Consciousness is awake, alert, obeys commands, Oriented to person, place, time, situation, Moves all extremities. Full function Gait is steady. Respiratory: Airway is patent Respiratory effort is even, unlabored, Respiratory pattern is regular, symmetrical, Breath sounds are clear bilaterally. GI: No signs and/or symptoms were reported involving the gastrointestinal system. : No signs and/or symptoms were reported regarding the genitourinary system. EENT: Throat has enlarged tonsils bilaterally Reports pain when swallowing. Derm: Skin is intact, is healthy with good turgor, Skin is pink, warm \T\ dry. Musculoskeletal: Circulation, motion, and sensation intact. Capillary refill < 3 seconds. 20:57 Reassessment: Patient appears in no apparent distress at this time. Patient is alert, aa1 oriented x 3, equal unlabored respirations, skin warm/dry/pink. Discussed d/c \T\ f/u instructions with pt; denies questions or concerns at this time. Vital Signs: 19:38 BP 132 / 81; Pulse 77; Resp 19; Temp 97.8; Pulse Ox 98% on R/A; Weight 79.38 kg; Height aj 5 ft. 5 in. (165.10 cm); 20:18 BP 120 / 70; Pulse 76; Resp 16; Pulse Ox 99% on R/A; aa1 19:38 Body Mass Index 29.12 (79.38 kg, 165.10 cm) aj ED Course: 19:32 Patient arrived in ED. es 19:37 Triage completed. aj 19:38 Arm band placed on right wrist. Patient placed in an exam room. aj 19:39 Audi Lim NP is PHCP. pm1 19:39 Tyrone Harrison MD is Attending Physician. pm1 19:48 Prema Ortiz, RN is Primary Nurse. aa1 20:00 Patient has correct armband on for positive identification. Bed in low position. Call aa1 light in reach. Pulse ox on. NIBP on. 20:02 Strep swab sent to lab. aa1 20:57 No provider procedures requiring assistance completed. Patient did not have IV access aa1 during this emergency room visit. Administered Medications: No medications were administered Outcome: 20:47 Discharge ordered by . pm1 20:57 Discharged to home ambulatory. aa1 20:57 Condition: good 20:57 Discharge instructions given to patient, Instructed on discharge instructions, follow up and referral plans. medication usage, Demonstrated understanding of instructions, follow-up care, medications, Prescriptions given X 1. 20:59 Patient left the ED. aa1 Signatures: Prema Ortiz RN RN aa1 Maryana Wilkins RN RN jose Francis, Audi Garcias NP CUSTOMER SERVICE ADMINISTRATOR pm1
--- NOTE | 2018-02-02 20:48 | EDPHYS ---
Physician Documentation [facility] Name: Sunny Angel Age: 27 yrs Sex: Male : 1990 Arrival Date: 02/02/2018 Time: 19:32 Bed 15 Private MD: ED Physician Tyrone Harrison HPI: 02/02 19:53 This 27 yrs old Male presents to ER via Ambulatory with complaints of Sore pm1 Throat, Left Ear Pain. 19:53 The patient presents with sore throat. The patient describes throat pain as raw, pm1 scratchy. Onset: The symptoms/episode began/occurred 1 week(s) ago. Severity of symptoms: in the emergency department the symptoms are actually worse. Modifying factors: The symptoms are alleviated by nothing, the symptoms are aggravated by swallowing, Patient's oral intake status: good Denies contact with similarly ill indivduals. Associated signs and symptoms: Pertinent positives: chills, earache, Pertinent negatives cough, fever. The patient has experienced similar episodes in the past, a few times. The patient has been recently seen by a physician: with similar presenting complaints, was given a prescription for antibiotics. Patient given amoxicillin and prednisone. Patient without improvement with medications would like reevaluation . Historical: - Allergies: 19:38 Lasix; aj 19:38 SEAFOOD; aj - Home Meds: 19:38 Amoxicillin Oral [Active]; Prednisone Oral [Active]; aj - PMHx: 19:38 Heart Murmur; Hernia; aj - PSHx: 19:38 oral surgery; aj - Immunization history:: Adult Immunizations up to date. - Social history:: Smoking status: Patient uses tobacco products, smokes one-half pack cigarettes per day. - Ebola Screening: : Patient negative for fever greater than or equal to 101.5 degrees Fahrenheit, and additional compatible Ebola Virus Disease symptoms Patient denies exposure to infectious person Patient denies travel to an Ebola-affected area in the 21 days before illness onset No symptoms or risks identified at this time. ROS: 19:53 Eyes: Negative for injury, pain, redness, and discharge. pm1 19:53 Cardiovascular: Negative for chest pain, palpitations, and edema, Respiratory: Negative for shortness of breath, cough, wheezing, and pleuritic chest pain, Abdomen/GI: Negative for abdominal pain, nausea, vomiting, diarrhea, and constipation. 19:53 Back: Negative for injury and pain, MS/Extremity: Negative for injury and deformity, Skin: Negative for injury, rash, and discoloration, Neuro: Negative for headache, weakness, numbness, tingling, and seizure. 19:53 Constitutional: Positive for chills, Negative for fever, poor PO intake. 19:53 ENT: Positive for ear pain, sore throat, Negative for drainage from ear(s), rhinorrhea, sinus congestion, sinus pain, dental pain, difficulty swallowing, difficulty handling secretions, hoarseness. 19:53 Neck: Positive for swollen nodes, Negative for stiffness, swelling. Exam: 19:53 Constitutional: This is a well developed, well nourished patient who is awake, alert, pm1 and in no acute distress. Head/Face: Normocephalic, atraumatic. Eyes: Pupils equal round and reactive to light, extra-ocular motions intact. Lids and lashes normal. Conjunctiva and sclera are non-icteric and not injected. Cornea within normal limits. Periorbital areas with no swelling, redness, or edema. 19:53 Neck: Trachea midline, no thyromegaly or masses palpated, and no cervical lymphadenopathy. Supple, full range of motion without nuchal rigidity, or vertebral point tenderness. No Meningismus. Chest/axilla: Normal chest wall appearance and motion. Nontender with no deformity. No lesions are appreciated. Cardiovascular: Regular rate and rhythm with a normal S1 and S2. No gallops, murmurs, or rubs. Normal PMI, no JVD. No pulse deficits. Respiratory: Lungs have equal breath sounds bilaterally, clear to auscultation and percussion. No rales, rhonchi or wheezes noted. No increased work of breathing, no retractions or nasal flaring. Abdomen/GI: Soft, non-tender, with normal bowel sounds. No distension or tympany. No guarding or rebound. No evidence of tenderness throughout. Back: No spinal tenderness. No costovertebral tenderness. Full range of motion. Skin: Warm, dry with normal turgor. Normal color with no rashes, no lesions, and no evidence of cellulitis. MS/ Extremity: Pulses equal, no cyanosis. Neurovascular intact. Full, normal range of motion. 19:53 ENT: External ear(s): are unremarkable, Ear canal(s): are normal, TM's: are normal, Nose: is normal, Mouth: is normal, Posterior pharynx: Airway: normal, no evidence of obstruction, patent, Tonsils: bilaterally enlarged, with erythema, no exudate, no ulcerations, peritonsillar mass, is not appreciated, pooling of secretions, is not appreciated. 19:53 Neuro: Orientation: is normal, Motor: is normal, moves all fours. Vital Signs: 19:38 BP 132 / 81; Pulse 77; Resp 19; Temp 97.8; Pulse Ox 98% on R/A; Weight 79.38 kg; Height aj 5 ft. 5 in. (165.10 cm); 20:18 BP 120 / 70; Pulse 76; Resp 16; Pulse Ox 99% on R/A; aa1 19:38 Body Mass Index 29.12 (79.38 kg, 165.10 cm) aj MDM: 19:39 Patient medically screened. pm1 19:56 Data reviewed: vital signs. Data interpreted: Pulse oximetry: on room air is 98 %. pm1 Interpretation: normal. 20:46 Counseling: I had a detailed discussion with the patient and/or guardian regarding: the pm1 historical points, exam findings, and any diagnostic results supporting the discharge/admit diagnosis, lab results, the need for outpatient follow up, to return to the emergency department if symptoms worsen or persist or if there are any questions or concerns that arise at home. 02/02 19:53 Order name: Strep; Complete Time: 20:42 pm1 02/02 20:26 Order name: Throat Culture EDMS Administered Medications: No medications were administered Disposition: 02/02/18 20:47 Discharged to Home. Impression: Acute pharyngitis. - Condition is Stable. - Discharge Instructions: Pharyngitis. - Prescriptions for Tramadol 50 mg Oral Tablet - take 1 tablet by ORAL route every 8 hours as needed; 12 tablet. - Medication Reconciliation Form, Thank You Letter, Antibiotic Education, Prescription Opioid Use form. - Follow up: Emergency Department; When: As needed; Reason: Worsening of condition. Follow up: Private Physician; When: 2 - 3 days; Reason: Recheck today's complaints, Continuance of care, Re-evaluation by your physician. - Problem is new. - Symptoms have improved. Addendum: 02/04/2018 10:34 Co-signature as Attending Physician, Tyrone Harrison MD I agree with the assessment and c davila plan of care. Signatures: Dispatcher [employer] Prema Hawley RN RN aa1 Maryana Wilkins RN Tyrone Figueroa MD MD cha Marinas, Patrick, NAIL SETTER NAIL SETTER pm1 Corrections: (The following items were deleted from the chart) 02/02 20:59 20:47 02/02/2018 20:47 Discharged to Home. Impression: Acute pharyngitis. Condition is aa1 Stable. Forms are Medication Reconciliation Form, Thank You Letter, Antibiotic Education, Prescription Opioid Use. Follow up: Emergency Department; When: As needed; Reason: Worsening of condition. Follow up: Private Physician; When: 2 - 3 days; Reason: Recheck today's complaints, Continuance of care, Re-evaluation by your physician. Problem is new. Symptoms have improved. pm1
[2018-02-02 21:02] VITALS: TEMP 97.8
[2018-02-02 21:03] VITALS: BP 120/70; O2SAT 99
== END 2018-02-02 20:59 | disposition home or self-care (01) ==
LOC: ER 19:25
DX: J02.9 Acute pharyngitis, unspecified (principal); R01.1 Cardiac murmur, unspecified; F17.210 Nicotine dependence, cigarettes, uncomplicated; Z88.8 Allergy status to other drugs, medicaments and biological substances; Z91.013 Allergy to seafood
CPT/HCPCS: 87070; 87081; 99283

== ENCOUNTER 2018-02-22 14:53 | Emergency (ER) | payer OTHER ==
--- OUTSIDE RECORDS SUMMARY | 2018-02-22 14:54 | XMS REPORT ---
:1990 [facility] Address [address] [place] [address] Dr. Santana [address] [place] [id number] Care Team Providers Name Role Phone BLANCA [...] 06/12/20177:01 PMDictated By: ENZO CABRERA.Date: 06/12/2017 19:07 [facility] 2017-06-12 18:51:00 Test Item Value Reference Range [...] EGFR if Non- >60 mL/min/1.73m\S\2 Estimated Glomerular [place] (test Filtration Rate (eGFR) code=EGFRNA) Reference Intervals [...] Gap (test code=GAP) 11 CBC WITH AUTO [id number] 18:02:00 Test Item Value Reference Range Comments [...] (test code=NRBC_AUTO) 0 /100WBC 0-2 URINALYSIS WITHOUT [id number] 17:32:00 Test Item Value Reference Range Comments Color (test code=UCOLR) Yellow Lt. Yellow Clarity (test code=UCLAR) Clear Glucose (test code=UGLUC) Negative Negative Bilirubin (test code=UBILI) Negative Negative Ketones (test code=UKET) Negative Negative Specific [place] (test code=USPGR) 1.015 1.005-1.030 Blood (test code=UBLD) Negative Negative PH (test code=UPH) 7.0 4.5-8.0 Protein (test code=UPROT) Negative Negative Urobilinogen (test code=U UROB) 0.2 E.U./dL >0.2 Nitrite (test code=UNITR) Negative Negative Leukocyte Esterase (test code=ULEUK) Negative Negative
[2018-02-22 15:36] LABS: Urine Blood NEGATIVE (NEG); Urine Glucose NEGATIVE (NEG); Urine Protein NEGATIVE (NEG); Urine Specific Gravity 1.015 (1.005-1.030); Urine pH 7.5 (5.0-7.0)
[2018-02-22 15:44] LABS: Absolute Lymphocytes (CBC) 2.3 K/uL (0.7-4.9); Absolute Monocytes 0.5 K/uL (0.1-1.3); Absolute Neutrophil 4.5 K/uL (1.8-8.0); Basophils % 0.4 % (0-1.3); Eosinophils % 0.8 % (0-4.4); Hematocrit 44.6 % (39.6-49.0); Lymphocytes % 30.9 % (15.3-44.8); MCH 30.9 pg (27.0-35.0); MCV 87.8 fL (80-100); MPV 8.5 fL (7.6-11.3); Monocytes % 6.9 % (3.3-12.3); RBC Red Blood Cell Count 5.08 M/uL (4.33-5.43)
[2018-02-22 15:52] LABS: Potassium 3.7 mmol/L (3.5-5.1)
--- NOTE | 2018-02-22 17:40 | RAD REPORT ---
EXAM DESCRIPTION: CT - Abdomen Pelvis Wo Contrast - 02/22/2018 5:21 pm CLINICAL HISTORY: Abdominal pain with vomiting for several months COMPARISON: November 2017 TECHNIQUE: Computed axial tomography of the abdomen and pelvis was obtained. IV was not requested. O ral contrast was given. Coronal reconstructions performed. All CT scans are performed using dose optimization technique as appropriate and may include automated exposure control or mA/KV adjustment according to patient size. FINDINGS: The evaluation of solid organs and vessels is limited secondary to the lack of contrast a dministration. Calcified granuloma within the liver is unchanged Spleen, pancreas, adrenals and kidneys appear grossly normal. The appendix is normal. There is no evidence of diverticulitis. IMPRESSION: No acute abnormality is displayed.
--- NOTE | 2018-02-22 17:46 | ER ---
Nurse's Notes [facility] Name: Sunny Angel Age: 27 yrs Sex: Male : 1990 Arrival Date: 02/22/2018 Time: 14:55 Bed 6 Private MD: Diagnosis: Lower abdominal pain, unspecified Presentation: 02/22 15:00 Presenting complaint: Patient states: Lower abd pain since yesterday and "something la1 abnormal looking in my stool" pt states clear mucous like substance in stool. Transition of care: patient was not received from another setting of care. Onset of symptoms was February 22, 2018. Risk Assessment: Do you want to hurt yourself or someone else? Patient reports no desire to harm self or others. Initial Sepsis Screen: Does the patient meet any 2 criteria? No. Patient's initial sepsis screen is negative. Does the patient have a suspected source of infection? No. Patient's initial sepsis screen is negative. Care prior to arrival: None. 15:00 Method Of Arrival: Ambulatory la1 15:00 Acuity: GILBERT 3 la1 Historical: - Allergies: 15:01 SEAFOOD; la1 15:01 Latex, Natural Rubber; la1 - PMHx: 15:01 Heart Murmur; Hernia; la1 - Immunization history:: Adult Immunizations up to date. - Social history:: Smoking status: Patient uses tobacco products, smokes one pack cigarettes per day. - Ebola Screening: : No symptoms or risks identified at this time. Screenin:25 Abuse screen: Denies threats or abuse. Denies injuries from another. Nutritional jl7 screening: No deficits noted. Tuberculosis screening: No symptoms or risk factors identified. Fall Risk IV access (20 points). Total Morrissey Fall Scale indicates No Risk (0-24 pts). Assessment: 15:10 General: Appears in no apparent distress. uncomfortable, Behavior is calm, cooperative, jl7 appropriate for age. Pain: Complains of pain in suprapubic area, right lower quadrant and left lower quadrant Pain does not radiate. Pain currently is 5 out of 10 on a pain scale. Quality of pain is described as pressure, stabbing, Pain began 1 day ago. Is continuous. Pain: Complains of pain in neck and head Pain does not radiate. Pain currently is 5 out of 10 on a pain scale. Quality of pain is described as "It feels sore like when you work out and you feel sore and crampy." Pain began 1 day ago. Is continuous. Neuro: Level of Consciousness is awake, alert, obeys commands, Oriented to person, place, time, situation. Cardiovascular: Heart tones S1 S2 present Patient's skin is warm and dry. Respiratory: Airway is patent Respiratory effort is even, unlabored, Respiratory pattern is regular, symmetrical, Breath sounds are clear bilaterally. GI: Bowel sounds present X 4 quads. Abd is soft X 4 quads Abdomen is tender to palpation in right lower quadrant and left lower quadrant Reports Mucus in stool Patient currently denies diarrhea, nausea, vomiting. : Reports burning with urination. EENT: No signs and/or symptoms were reported regarding the EENT system. Derm: Skin is pink, warm \\T\\ dry. Musculoskeletal: No signs and/or symptoms reported regarding the musculoskeletal system. 15:25 Reassessment: Pt finished drinking oral contrast, CT notified. jl7 16:30 Reassessment: No changes from previously documented assessment. Patient and/or family jl7 updated on plan of care and expected duration. Pain level reassessed. Patient is alert, oriented x 3, equal unlabored respirations, skin warm/dry/pink. 17:30 Reassessment: No changes from previously documented assessment. Patient and/or family jl7 updated on plan of care and expected duration. Pain level reassessed. Patient is alert, oriented x 3, equal unlabored respirations, skin warm/dry/pink. Vital Signs: 15:02 BP 125 / 84; Pulse 85; Resp 17; Temp 97.4(TE); Pulse Ox 100% on R/A; Weight 79.38 kg; la1 Height 5 ft. 5 in. (165.10 cm); 15:41 BP 124 / 92; Pulse 71; Resp 17; Pulse Ox 97% on R/A; tw2 17:00 BP 106 / 73; Pulse 72; Resp 16; Pulse Ox 97% on R/A; tw2 17:45 BP 109 / 75; Pulse 70; Resp 16; Pulse Ox 98% ; jl7 15:02 Body Mass Index 29.12 (79.38 kg, 165.10 cm) la1 ED Course: 14:55 Patient arrived in ED. mr 15:01 Triage completed. la1 15:02 Arm band placed on left wrist. la1 15:03 Chung Braga, RN is Primary Nurse. jl7 15:07 Latasha Gonzales FNP-C is [facility]. kb 15:07 Jono Messer MD is Attending Physician. kb 15:25 Patient has correct armband on for positive identification. Bed in low position. Call jl7 light in reach. Side rails up X 1. Pulse ox on. NIBP on. 15:25 Initial lab(s) drawn, by me, sent to lab. Urine collected: clean catch specimen, clear. jl7 Inserted saline lock: 20 gauge in right antecubital area, using aseptic technique. Blood collected. 17:22 Abdomen In Process Unspecified. EDMS 18:08 No provider procedures requiring assistance completed. IV discontinued, intact, jl7 bleeding controlled, No redness/swelling at site. Pressure dressing applied. Administered Medications: No medications were administered Outcome: 17:45 Discharge ordered by . kb 18:08 Discharged to home ambulatory. jl7 18:08 Condition: stable 18:08 Discharge instructions given to patient, Instructed on discharge instructions, follow up and referral plans. Demonstrated understanding of instructions, follow-up care. 18:08 Patient left the ED. jl7 Signatures: Dispatcher [employer] EDDC Latasha Gonzales, VALERIA GAYTAN-Gayla Boston Lee, RN RN la1 Montserrat Guillermo, SAM RN tw2 Chung Braga, SAM RN jl7
--- NOTE | 2018-02-22 17:46 | EDPHYS ---
Physician Documentation [facility] Name: Sunny Angel Age: 27 yrs Sex: Male : 1990 Arrival Date: 02/22/2018 Time: 14:55 Bed 6 Private MD: ED Physician Jono Messer HPI: 02/22 17:20 This 27 yrs old Male presents to ER via Ambulatory with complaints of kb Abdominal Pain. 17:20 The patient presents with abdominal pain in the lower abdomen. Onset: The kb symptoms/episode began/occurred yesterday. The symptoms do not radiate. Associated signs and symptoms: Pertinent positives: mucous in stool. The symptoms are described as constant, waxing/waning. Modifying factors: The symptoms are alleviated by nothing, the symptoms are aggravated by pressure. Severity of pain: At its worst the pain was severe in the emergency department the pain has improved. The patient has not experienced similar symptoms in the past. The patient has not recently seen a physician. Historical: - Allergies: 15:01 SEAFOOD; la1 15:01 Latex, Natural Rubber; la1 - PMHx: 15:01 Heart Murmur; Hernia; la1 - Immunization history:: Adult Immunizations up to date. - Social history:: Smoking status: Patient uses tobacco products, smokes one pack cigarettes per day. - Ebola Screening: : No symptoms or risks identified at this time. ROS: 17:19 Constitutional: Negative for fever, chills, and weight loss, Cardiovascular: Negative kb for chest pain, palpitations, and edema, Respiratory: Negative for shortness of breath, cough, wheezing, and pleuritic chest pain, Back: Negative for injury and pain, : Negative for injury, bleeding, discharge, and swelling, MS/Extremity: Negative for injury and deformity, Skin: Negative for injury, rash, and discoloration, Neuro: Negative for headache, weakness, numbness, tingling, and seizure. 17:19 Abdomen/GI: Positive for abdominal pain. Exam: 17:19 Constitutional: This is a well developed, well nourished patient who is awake, alert, kb and in no acute distress. Head/Face: Normocephalic, atraumatic. Chest/axilla: Normal chest wall appearance and motion. Nontender with no deformity. No lesions are appreciated. Cardiovascular: Regular rate and rhythm with a normal S1 and S2. No gallops, murmurs, or rubs. Normal PMI, no JVD. No pulse deficits. Respiratory: Lungs have equal breath sounds bilaterally, clear to auscultation and percussion. No rales, rhonchi or wheezes noted. No increased work of breathing, no retractions or nasal flaring. Back: No spinal tenderness. No costovertebral tenderness. Full range of motion. Skin: Warm, dry with normal turgor. Normal color with no rashes, no lesions, and no evidence of cellulitis. MS/ Extremity: Pulses equal, no cyanosis. Neurovascular intact. Full, normal range of motion. Neuro: Awake and alert, GCS 15, oriented to person, place, time, and situation. Cranial nerves II-XII grossly intact. Motor strength 5/5 in all extremities. Sensory grossly intact. Cerebellar exam normal. Normal gait. 17:19 Abdomen/GI: Inspection: abdomen appears normal, Bowel sounds: normal, in all quadrants, Palpation: soft, in all quadrants, moderate abdominal tenderness, in the right lower quadrant and left lower quadrant. Vital Signs: 15:02 BP 125 / 84; Pulse 85; Resp 17; Temp 97.4(TE); Pulse Ox 100% on R/A; Weight 79.38 kg; la1 Height 5 ft. 5 in. (165.10 cm); 15:41 BP 124 / 92; Pulse 71; Resp 17; Pulse Ox 97% on R/A; tw2 17:00 BP 106 / 73; Pulse 72; Resp 16; Pulse Ox 97% on R/A; tw2 17:45 BP 109 / 75; Pulse 70; Resp 16; Pulse Ox 98% ; jl7 15:02 Body Mass Index 29.12 (79.38 kg, 165.10 cm) la1 MDM: 15:07 Patient medically screened. kb 17:19 Data reviewed: vital signs, nurses notes. Data interpreted: Pulse oximetry: on room air kb is 97 %. Interpretation: normal. 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 02/22 15:19 Order name: Basic Metabolic Panel; Complete Time: 15:57 kb 02/22 15:19 Order name: CBC with Diff; Complete Time: 15:57 kb 02/22 15:19 Order name: IV Saline Lock; Complete Time: 15:30 kb 02/22 15:24 Order name: Abdomen ; Complete Time: 17:42 EDMS 02/22 15:31 Order name: Urine Dipstick--Ancillary (enter results); Complete Time: 15:42 ag 02/22 15:19 Order name: Labs collected and sent; Complete Time: 15:30 kb 02/22 15:19 Order name: Urine Dipstick-Ancillary (obtain specimen); Complete Time: 15:30 kb Administered Medications: No medications were administered Disposition: 02/23 15:49 Co-signature as Attending Physician, Jono Messer MD. Disposition: 02/22/18 17:45 Discharged to Home. Impression: Lower abdominal pain, unspecified. - Condition is Stable. - Discharge Instructions: Abdominal Pain, Adult, [id number]. - Family Work Release, Medication Reconciliation Form, Thank You Letter, Antibiotic Education, Prescription Opioid Use form. - Follow up: Emergency Department; When: As needed; Reason: Worsening of condition. Follow up: Private Physician; When: 2 - 3 days; Reason: Recheck today's complaints, Continuance of care, Re-evaluation by your physician. Signatures: Dispatcher [employer] [facility] Latasha Gonzales, TRUCKMAN-C TRUCKMAN-Ckb Yordy Stone RN RN [email or web address] Chung Braga RN RN jl7 Jono Messer MD MD Corrections: (The following items were deleted from the chart) 02/22 15:24 15:19 Abdomen Pelvis W Con+CT.RAD.BRZ ordered. [facility] 18:08 17:45 02/22/2018 17:45 Discharged to Home. Impression: Lower abdominal pain, jl7 unspecified. Condition is Stable. Forms are Medication Reconciliation Form, Thank You Letter, Antibiotic Education, Prescription Opioid Use. Follow up: Emergency Department; When: As needed; Reason: Worsening of condition. Follow up: Private Physician; When: 2 - 3 days; Reason: Recheck today's complaints, Continuance of care, Re-evaluation by your physician. kb
[2018-02-22 19:32] VITALS: TEMP 97.4
[2018-02-22 19:35] VITALS: BP 109/75; O2SAT 98
== END 2018-02-22 18:08 | disposition home or self-care (01) ==
LOC: ER 14:53
DX: R10.30 Lower abdominal pain, unspecified (principal); F17.210 Nicotine dependence, cigarettes, uncomplicated; Z91.013 Allergy to seafood; Z91.040 Latex allergy status
CPT/HCPCS: 36415; 74176; 80048; 81003; 85025; 99284

== ENCOUNTER 2018-04-10 10:54 | Emergency (ER) | payer OTHER ==
--- OUTSIDE RECORDS SUMMARY | 2018-04-10 10:56 | XMS REPORT ---
:1990 [facility] [address] [place] [address] Dr. Santana [address] [place] [id number] Care Team Providers Name Role Phone BLANCA [...] 06/12/20177:01 PMDictated By: ENZO CABRERA.Date: 06/12/2017 19:07 [facility] 2017-06-12 18:51:00 Test Item Value Reference [...] EGFR if Non- >60 mL/min/1.73m\S\2 Estimated Glomerular [place] (test Filtration Rate (eGFR) code=EGFRNA) Reference Intervals [...] Gap (test code=GAP) 11 CBC WITH AUTO [id number] 18:02:00 Test Item Value Reference Range Comments [...] (test code=NRBC_AUTO) 0 /100WBC 0-2 URINALYSIS WITHOUT [id number] 17:32:00 Test Item Value Reference Range Comments Color (test code=UCOLR) Yellow Lt. Yellow Clarity (test code=UCLAR) Clear Glucose (test code=UGLUC) Negative Negative Bilirubin (test code=UBILI) Negative Negative Ketones (test code=UKET) Negative Negative Specific [place] (test code=USPGR) 1.015 1.005-1.030 Blood (test code=UBLD) Negative Negative PH (test code=UPH) 7.0 4.5-8.0 Protein (test code=UPROT) Negative Negative Urobilinogen (test code=U UROB) 0.2 E.U./dL >0.2 Nitrite (test code=UNITR) Negative Negative Leukocyte Esterase (test code=ULEUK) Negative Negative
[2018-04-10] MEDS ORDERED: predniSONE 20 MG TAB ONE (11:51)
[2018-04-10] MEDS ORDERED: KETOROLAC 30 MG/ML INJ ONE (11:51)
--- NOTE | 2018-04-10 12:44 | ER ---
Nurse's Notes [facility] Name: Sunny Angel Age: 27 yrs Sex: Male : 1990 Arrival Date: 04/10/2018 Time: 10:55 Bed 13 Private MD: Diagnosis: Viral infection, unspecified Presentation: 04/10 10:56 Presenting complaint: EMS states: HEADACHE AND COUGH/COLD FOR A FEW WEEKS. Transition bp of care: patient was not received from another setting of care. Onset of symptoms is unknown. Risk Assessment: Do you want to hurt yourself or someone else? Patient reports no desire to harm self or others. Initial Sepsis Screen: Does the patient meet any 2 criteria? No. Patient's initial sepsis screen is negative. Does the patient have a suspected source of infection? No. Patient's initial sepsis screen is negative. Care prior to arrival: None. 10:56 Method Of Arrival: EMS: [facility] bp 10:56 Acuity: GILBERT 4 bp Triage Assessment: 10:57 Headache History: The patient has had previous headaches and this one is similar to previous episodes. General: Appears in no apparent distress. comfortable, Behavior is calm, cooperative, appropriate for age. Pain: Complains of pain in head Pain currently is 6 out of 10 on a pain scale. Pain began FEW WEEKS Also complains of no other associated symptoms. EENT: NASAL AND SINUS CONGESTION. Neuro: Level of Consciousness is awake, alert, obeys commands, Oriented to person, place, time, situation, Appropriate for age. Cardiovascular: No deficits noted. Respiratory: Airway is patent Respiratory effort is even, unlabored, Respiratory pattern is regular, symmetrical. GI: No signs and/or symptoms were reported involving the gastrointestinal system. : No signs and/or symptoms were reported regarding the genitourinary system. Derm: No deficits noted. Musculoskeletal: Circulation, motion, and sensation intact. Range of motion: intact in all extremities. Historical: - Allergies: 10:57 Latex, Natural Rubber; bp 10:57 SEAFOOD; bp - Home Meds: 10:57 None [Active]; bp - PMHx: 10:57 Heart Murmur; Hernia; bp - Immunization history:: Adult Immunizations up to date. - Social history:: Smoking status: Patient/guardian denies using tobacco. - Ebola Screening: : Patient negative for fever greater than or equal to 101.5 degrees Fahrenheit, and additional compatible Ebola Virus Disease symptoms Patient denies exposure to infectious person Patient denies travel to an Ebola-affected area in the 21 days before illness onset No symptoms or risks identified at this time. Screenin:01 Abuse screen: Denies threats or abuse. Denies injuries from another. Nutritional bp screening: No deficits noted. Tuberculosis screening: No symptoms or risk factors identified. Fall Risk None identified. Assessment: 11:01 General: SEE TRIAGE NOTE. 27YO WM P/W COUGH/COLD S/S xWEEKS, HAS NOT SEEN PCP. Pain: bp Complains of pain in head. 12:57 Reassessment: PT D/C HOME AMBULATORY, DX WITH VIRAL URI. bp Vital Signs: 10:57 BP 119 / 88; Pulse 72; Resp 16; Temp 97; Pulse Ox 95% ; Weight 77.11 kg; Height 5 ft. 5 bp in. (165.10 cm); 11:52 BP 127 / 80; Pulse 69; Resp 14; Pulse Ox 95% ; bp 10:57 Body Mass Index 28.29 (77.11 kg, 165.10 cm) bp ED Course: 10:55 Patient arrived in ED. bp 10:56 Triage completed. bp 10:57 Pascual Brantley PA is PHCP. jr8 10:57 Tyrone Harrison MD is Attending Physician. jr8 10:57 Arm band placed on. bp 11:01 Patient has correct armband on for positive identification. Bed in low position. Call bp light in reach. Side rails up X2. 11:41 Kenny Lopez, SAM is Primary Nurse. bp 11:51 Flu and/or RSV swab sent to lab. mh5 11:51 Influenza Screen (a \T\ B) Sent. mh5 12:57 No provider procedures requiring assistance completed. Patient did not have IV access bp during this emergency room visit. Administered Medications: 11:45 Drug: TORadol 60 mg Route: IM; Site: left deltoid; bp 11:53 Follow up: Response: Pain is decreased bp 11:45 Drug: predniSONE 60 mg Route: PO; bp 11:53 Follow up: Response: No adverse reaction bp 12:40 Drug: Pepcid 20 mg Route: PO; bp 12:57 Follow up: Response: Medication administered at discharge. bp Point of Care Testing: Blood Glucose: 10:57 Blood Glucose: 124 mg/dL; bp 10:57 ASSEMBLY PERSON bp Ranges: Outcome: 12:43 Discharge ordered by MD. deal 12:58 Discharged to home ambulatory. bp 12:58 Condition: stable 12:58 Discharge instructions given to patient, Instructed on discharge instructions, follow up and referral plans. medication usage, Demonstrated understanding of instructions, follow-up care, medications, Prescriptions given X 4. 12:58 Patient left the ED. bp Signatures: Pascual Brantley PA PA jr8 Martinez, Maria [facility] Kenny Lopez, RN RN bp
--- NOTE | 2018-04-10 12:44 | EDPHYS ---
Physician Documentation [facility] Name: Sunny Angel Age: 27 yrs Sex: Male : 1990 Arrival Date: 04/10/2018 Time: 10:55 Bed 13 Private MD: ED Physician Tyrone Harrison HPI: 04/10 12:17 This 27 yrs old Male presents to ER via EMS with complaints of Headache, jr8 Cough. 12:33 Onset: The symptoms/episode began/occurred acutely, today. Associated signs and jr8 symptoms: Pertinent positives: cough, sinus congestion, diarrhea . Severity of symptoms: At its worst the pain was moderate. The patient has not experienced similar symptoms in the past. Historical: - Allergies: 10:57 Latex, Natural Rubber; bp 10:57 SEAFOOD; bp - Home Meds: 10:57 None [Active]; bp - PMHx: 10:57 Heart Murmur; Hernia; bp - Immunization history:: Adult Immunizations up to date. - Social history:: Smoking status: Patient/guardian denies using tobacco. - Ebola Screening: : Patient negative for fever greater than or equal to 101.5 degrees Fahrenheit, and additional compatible Ebola Virus Disease symptoms Patient denies exposure to infectious person Patient denies travel to an Ebola-affected area in the 21 days before illness onset No symptoms or risks identified at this time. ROS: 12:33 Eyes: Negative for injury, pain, redness, and discharge, Neck: Negative for injury, jr8 pain, and swelling, Cardiovascular: Negative for chest pain, palpitations, and edema, Back: Negative for injury and pain, MS/Extremity: Negative for injury and deformity, Skin: Negative for injury, rash, and discoloration. 12:33 Respiratory: Positive for cough, Negative for sputum production, wheezing. 12:33 Abdomen/GI: Positive for nausea, diarrhea, Negative for abdominal cramps, abdominal distension. 12:33 Neuro: Positive for headache, Negative for altered mental status, dizziness, gait disturbance, hearing loss, loss of consciousness, numbness, seizure activity, speech changes, syncope, near syncope, tingling, tinnitus, tremor, visual changes, weakness. Exam: 12:33 Eyes: Pupils equal round and reactive to light, extra-ocular motions intact. Lids and jr8 lashes normal. Conjunctiva and sclera are non-icteric and not injected. Cornea within normal limits. Periorbital areas with no swelling, redness, or edema. ENT: Nares patent. No nasal discharge, no septal abnormalities noted. Tympanic membranes are normal and external auditory canals are clear. Oropharynx with no redness, swelling, or masses, exudates, or evidence of obstruction, uvula midline. Mucous membranes moist. Neck: Trachea midline, no thyromegaly or masses palpated, and no cervical lymphadenopathy. Supple, full range of motion without nuchal rigidity, or vertebral point tenderness. No Meningismus. Cardiovascular: Regular rate and rhythm with a normal S1 and S2. No gallops, murmurs, or rubs. Normal PMI, no JVD. No pulse deficits. Respiratory: Lungs have equal breath sounds bilaterally, clear to auscultation and percussion. No rales, rhonchi or wheezes noted. No increased work of breathing, no retractions or nasal flaring. Abdomen/GI: Soft, non-tender, with normal bowel sounds. No distension or tympany. No guarding or rebound. No evidence of tenderness throughout. Back: No spinal tenderness. No costovertebral tenderness. Full range of motion. Skin: Warm, dry with normal turgor. Normal color with no rashes, no lesions, and no evidence of cellulitis. MS/ Extremity: Pulses equal, no cyanosis. Neurovascular intact. Full, normal range of motion. Neuro: Awake and alert, GCS 15, oriented to person, place, time, and situation. Cranial nerves II-XII grossly intact. Motor strength 5/5 in all extremities. Sensory grossly intact. Cerebellar exam normal. Normal gait. 12:33 ENT: Exam is negative for earache, ear discharge, TM abnormalities, Nose: External nose: no obvious acute abnormality, Nasal septum: is midline, Nasal mucosa: erythematous, moist, Turbinates: are swollen bilaterally, Mouth: Lips: moist, Oral mucosa: pink and intact, moist, Gums: pink, Tongue: is moist, Posterior pharynx: Airway: patent, Tonsils: are normal in appearance, no enlargement, no erythema, no exudate, no ulcerations, Uvula: midline, non-edematous, no erythema, swelling, is not appreciated. Vital Signs: 10:57 BP 119 / 88; Pulse 72; Resp 16; Temp 97; Pulse Ox 95% ; Weight 77.11 kg; Height 5 ft. 5 bp in. (165.10 cm); 11:52 BP 127 / 80; Pulse 69; Resp 14; Pulse Ox 95% ; bp 10:57 Body Mass Index 28.29 (77.11 kg, 165.10 cm) bp MDM: 10:57 Patient medically screened. jr8 12:33 Data reviewed: vital signs, nurses notes, lab test result(s), and as a result, I will jr8 discharge patient. Data interpreted: Pulse oximetry: on room air is 95 %. Interpretation: normal. Counseling: I had a detailed discussion with the patient and/or guardian regarding: the historical points, exam findings, and any diagnostic results supporting the discharge/admit diagnosis, lab results, the need for outpatient follow up, a family practitioner, to return to the emergency department if symptoms worsen or persist or if there are any questions or concerns that arise at home. Response to treatment: the patient's symptoms have resolved after treatment. 04/10 11:32 Order name: Influenza Screen (a \T\ B); Complete Time: 12:33 jr8 04/10 11:32 Order name: PO challenge; Complete Time: 11:51 jr8 Administered Medications: 11:45 Drug: TORadol 60 mg Route: IM; Site: left deltoid; bp 11:53 Follow up: Response: Pain is decreased bp 11:45 Drug: predniSONE 60 mg Route: PO; bp 11:53 Follow up: Response: No adverse reaction bp 12:40 Drug: Pepcid 20 mg Route: PO; bp 12:57 Follow up: Response: Medication administered at discharge. bp Point of Care Testing: Blood Glucose: 10:57 Blood Glucose: 124 mg/dL; bp 10:57 STOCK ORDER LISTER bp Ranges: Critical Glucose Levels:Adult <50 mg/dl or >400 mg/dl <40 mg/dl or >180 mg/dl Disposition: 04/11 07:04 Co-signature as Attending Physician, Tyrone Harrison MD I agree with the assessment and flo plan of care. Disposition: 04/10/18 12:43 Discharged to Home. Impression: Viral infection, unspecified. - Condition is Stable. - Discharge Instructions: Viral Respiratory Infection. - Prescriptions for Ibuprofen 800 mg Oral Tablet - take 1 tablet by ORAL route every 12 hours As needed take with food; 20 tablet. Zofran 4 mg Oral Tablet - take 1 tablet by ORAL route every 12 hours As needed; 20 tablet. Tessalon Perles 100 mg Oral Capsule - take 1 capsule by ORAL route every 8 hours As needed; 15 capsule. Prednisone 20 mg Oral Tablet - take 1 tablet by ORAL route once daily for 5 days; 5 tablet. - Medication Reconciliation Form, Thank You Letter, Antibiotic Education, Prescription Opioid Use form. - Follow up: Private Physician; When: 5 - 6 days; Reason: Recheck today's complaints, Continuance of care, Re-evaluation by your physician. - Problem is new. - Symptoms have improved. Signatures: Dispatcher [employer] EDMS Tyrone Harrison MD MD cha Roszak, Josh, PA PA jr8 Kenny Lopez RN RN bp Corrections: (The following items were deleted from the chart) 04/10 12:58 12:43 04/10/2018 12:43 Discharged to Home. Impression: Viral infection, unspecified. bp Condition is Stable. Forms are Medication Reconciliation Form, Thank You Letter, Antibiotic Education, Prescription Opioid Use. Follow up: Private Physician; When: 5 - 6 days; Reason: Recheck today's complaints, Continuance of care, Re-evaluation by your physician. Problem is new. Symptoms have improved. jr8
[2018-04-10] MEDS ORDERED: FAMOTIDINE 20 MG TAB ONE (13:00)
[2018-04-10 13:02] VITALS: TEMP 97; O2SAT 95
[2018-04-10 13:03] VITALS: BP 127/80
== END 2018-04-10 12:58 | disposition home or self-care (01) ==
LOC: ER 10:54
DX: B34.9 Viral infection, unspecified (principal); Z91.013 Allergy to seafood; Z91.040 Latex allergy status; Z91.048 Other nonmedicinal substance allergy status
CPT/HCPCS: 87804; 96372; 99284; J7512

== ENCOUNTER 2018-07-27 06:50 | Emergency (ER) | payer OTHER ==
--- OUTSIDE RECORDS SUMMARY | 2018-07-27 06:52 | XMS REPORT ---
:1990 [facility] Address [address] [place] [address] [address] [place] [address] Care Team Providers Name Role Phone BLANCA [...] 06/12/20177:01 PMDictated By: ENZO CABRERA.Date: 06/12/2017 19:07 [facility] 2017-06-12 18:51:00 Test Item Value Reference [...] EGFR if Non- >60 mL/min/1.73m\S\2 Estimated Glomerular Monegasque (test Filtration Rate (eGFR) code=EGFRNA) Reference Intervals [...] Gap (test code=GAP) 11 CBC WITH AUTO [id number] 18:02:00 Test Item Value Reference Range Comments [...] (test code=NRBC_AUTO) 0 /100WBC 0-2 URINALYSIS WITHOUT [id number] 17:32:00 Test Item Value Reference Range Comments Color (test code=UCOLR) Yellow Lt. Yellow Clarity (test code=UCLAR) Clear Glucose (test code=UGLUC) Negative Negative Bilirubin (test code=UBILI) Negative Negative Ketones (test code=UKET) Negative Negative Specific Reliance (test code=USPGR) 1.015 1.005-1.030 Blood (test code=UBLD) Negative Negative PH (test code=UPH) 7.0 4.5-8.0 Protein (test code=UPROT) Negative Negative Urobilinogen (test code=U UROB) 0.2 E.U./dL >0.2 Nitrite (test code=UNITR) Negative Negative Leukocyte Esterase (test code=ULEUK) Negative Negative
--- NOTE | 2018-07-27 07:17 | EDPHYS ---
Physician Documentation [facility] Name: Sunny Angel Age: 27 yrs Sex: Male : 1990 Arrival Date: 07/27/2018 Time: 06:54 Bed 13 Private MD: ED Physician Jono Messer HPI: 07/27 07:12 This 27 yrs old Male presents to ER via Unassigned with complaints of Left pm1 Ear Pain. 07:12 The patient presents with pain. The complaints affect the left ear. Onset: The pm1 symptoms/episode began/occurred this morning. Modifying factors: The symptoms are alleviated by Pain medication, Tramadol, and ear drops, the symptoms are aggravated by nothing. Associated signs and symptoms: Pertinent negatives: cough, fever, sore throat, vomiting. Severity of symptoms: in the emergency department the symptoms have improved. The patient has experienced similar episodes in the past, multiple times. The patient has not recently seen a physician. Historical: - Allergies: 07:02 Latex, Natural Rubber; aa5 07:02 SEAFOOD; aa5 - PMHx: 07:02 Heart Murmur; Hernia; aa5 - PSHx: 07:02 None; aa5 - Immunization history:: Adult Immunizations unknown. - Social history:: Smoking status: Patient uses tobacco products, smokes one pack cigarettes per day. - Ebola Screening: : No symptoms or risks identified at this time. ROS: 07:12 Constitutional: Negative for fever, chills, and weight loss, Eyes: Negative for injury, pm1 pain, redness, and discharge. 07:12 Neck: Negative for injury, pain, and swelling, Cardiovascular: Negative for chest pain, palpitations, and edema, Respiratory: Negative for shortness of breath, cough, wheezing, and pleuritic chest pain, Abdomen/GI: Negative for abdominal pain, nausea, vomiting, diarrhea, and constipation, Back: Negative for injury and pain, : Negative for injury, bleeding, discharge, and swelling, MS/Extremity: Negative for injury and deformity, Skin: Negative for injury, rash, and discoloration, Neuro: Negative for headache, weakness, numbness, tingling, and seizure. 07:12 ENT: Positive for Left ear pain, Negative for sore throat, dental pain, difficulty swallowing. Exam: 07:12 Constitutional: This is a well developed, well nourished patient who is awake, alert, pm1 and in no acute distress. Head/Face: Normocephalic, atraumatic. Eyes: Pupils equal round and reactive to light, extra-ocular motions intact. Lids and lashes normal. Conjunctiva and sclera are non-icteric and not injected. Cornea within normal limits. Periorbital areas with no swelling, redness, or edema. 07:12 Neck: Trachea midline, no thyromegaly or masses palpated, and no cervical lymphadenopathy. Supple, full range of motion without nuchal rigidity, or vertebral point tenderness. No Meningismus. Chest/axilla: Normal chest wall appearance and motion. Nontender with no deformity. No lesions are appreciated. Cardiovascular: Regular rate and rhythm with a normal S1 and S2. No gallops, murmurs, or rubs. Normal PMI, no JVD. No pulse deficits. Respiratory: Lungs have equal breath sounds bilaterally, clear to auscultation and percussion. No rales, rhonchi or wheezes noted. No increased work of breathing, no retractions or nasal flaring. Back: No spinal tenderness. No costovertebral tenderness. Full range of motion. Skin: Warm, dry with normal turgor. Normal color with no rashes, no lesions, and no evidence of cellulitis. MS/ Extremity: Pulses equal, no cyanosis. Neurovascular intact. Full, normal range of motion. 07:12 ENT: External ear(s): are unremarkable, Ear canal(s): are normal, TM's: bulging, on the left, erythema, that is mild, on the left, Examination of the other ear shows no obvious abnormality, Nose: is normal, Mouth: is normal, no abscess, no drooling, (-) tongue elevation (-) trismus Posterior pharynx: is normal, airway is patent, no peritonsilar mass, no pooling of secretions, no swelling, Dental exam: dental caries, diffusely, missing teeth, diffusely. 07:12 Neuro: Orientation: is normal, Motor: moves all fours, Gait: is steady, at a normal pace, without difficulty. Vital Signs: 07:05 BP 123 / 92; Pulse 79; Resp 18 S; Temp 97.4(O); Pulse Ox 97% on R/A; Weight 81.65 kg aa5 (R); Height 5 ft. 4 in. (162.56 cm) (R); Pain 6/10; 07:05 Body Mass Index 30.90 (81.65 kg, 162.56 cm) aa5 MDM: 07:05 Patient medically screened. pm1 07:15 Data reviewed: vital signs. Data interpreted: Pulse oximetry: on room air is 97 %. pm1 Interpretation: normal. Counseling: I had a detailed discussion with the patient and/or guardian regarding: the historical points, exam findings, and any diagnostic results supporting the discharge/admit diagnosis, the need for outpatient follow up, a dentist, a family practitioner, to return to the emergency department if symptoms worsen or persist or if there are any questions or concerns that arise at home. Administered Medications: No medications were administered Disposition: 07/27/18 07:17 Discharged to Home. Impression: Otitis media, unspecified, left ear. - Condition is Stable. - Discharge Instructions: Otitis Media, Adult. - Prescriptions for Amoxicillin 500 mg Oral Capsule - take 1 capsule by ORAL route every 8 hours for 10 days; 30 tablet. Tramadol 50 mg Oral Tablet - take 1 tablet by ORAL route every 8 hours as needed; 12 tablet. - Medication Reconciliation Form, Thank You Letter, Antibiotic Education, Prescription Opioid Use form. - Family Work Release (07/27/18 10:34). eb - Follow up: Emergency Department; When: As needed; Reason: Worsening of condition. Follow up: Private Physician; When: 2 - 3 days; Reason: Recheck today's complaints, Continuance of care, Re-evaluation by your physician. - Problem is new. - Symptoms have improved. Addendum: 08/03/2018 03:28 Co-signature as Attending Physician, Jono Messer MD. g s Signatures: Mariam Vazquez, RN RN aa5 Audi Lim, ELIGIBILITY AND OCCUPANCY INTERVIEWER ELIGIBILITY AND OCCUPANCY INTERVIEWER pm1 Jono Messer MD MD gs Stewart, Lisa RN RN ls4 Jade Gonsalez Corrections: (The following items were deleted from the chart) 07/27 07:24 07:17 07/27/2018 07:17 Discharged to Home. Impression: Otitis media, unspecified, left ls4 ear. Condition is Stable. Forms are Medication Reconciliation Form, Thank You Letter, Antibiotic Education, Prescription Opioid Use. Follow up: Emergency Department; When: As needed; Reason: Worsening of condition. Follow up: Private Physician; When: 2 - 3 days; Reason: Recheck today's complaints, Continuance of care, Re-evaluation by your physician. Problem is new. Symptoms have improved. pm1
--- NOTE | 2018-07-27 07:17 | ER ---
Nurse's Notes [facility] Name: Sunny Angel Age: 27 yrs Sex: Male : 1990 Arrival Date: 07/27/2018 Time: 06:54 Bed 13 Private MD: Diagnosis: Otitis media, unspecified, left ear Presentation: 07/27 07:01 Presenting complaint: Patient states: left ear pain radiating down to left side of neck aa5 x 1 week ago but got worse during the night. Pt states "I took a tramadol before coming here because the pain was so bad". 07:01 Transition of care: patient was not received from another setting of care. Onset of aa5 symptoms was July 2018. Risk Assessment: Do you want to hurt yourself or someone else? Patient reports no desire to harm self or others. Initial Sepsis Screen: Does the patient meet any 2 criteria? No. Patient's initial sepsis screen is negative. Does the patient have a suspected source of infection? No. Patient's initial sepsis screen is negative. Care prior to arrival: None. 07:01 Method Of Arrival: Ambulatory aa5 07:01 Acuity: GILBERT 5 aa5 Triage Assessment: 07:15 General: Appears uncomfortable, Behavior is calm. Pain: Complains of pain in left ear ls4 Pain currently is 9 out of 10 on a pain scale. Historical: - Allergies: 07:02 Latex, Natural Rubber; aa5 07:02 SEAFOOD; aa5 - PMHx: 07:02 Heart Murmur; Hernia; aa5 - PSHx: 07:02 None; aa5 - Immunization history:: Adult Immunizations unknown. - Social history:: Smoking status: Patient uses tobacco products, smokes one pack cigarettes per day. - Ebola Screening: : No symptoms or risks identified at this time. Screenin:14 Abuse screen: Denies threats or abuse. Denies injuries from another. Nutritional ls4 screening: No deficits noted. Tuberculosis screening: No symptoms or risk factors identified. Fall Risk None identified. Assessment: 07:16 General: Appears uncomfortable, Behavior is calm. ls4 07:21 EENT: Poor dentition noted. ls4 Vital Signs: 07:05 BP 123 / 92; Pulse 79; Resp 18 S; Temp 97.4(O); Pulse Ox 97% on R/A; Weight 81.65 kg aa5 (R); Height 5 ft. 4 in. (162.56 cm) (R); Pain 6/10; 07:05 Body Mass Index 30.90 (81.65 kg, 162.56 cm) aa5 ED Course: 06:54 Patient arrived in ED. ag3 07:01 Arm band placed on Patient placed in an exam room, on a stretcher. aa5 07:03 Audi Lim NP is PHCP. pm1 07:03 Jono Messer MD is Attending Physician. pm1 07:04 Yissel Singleton, RN is Primary Nurse. ls4 07:12 Triage completed. aa5 07:14 Patient has correct armband on for positive identification. Allergy band placed. Bed in ls4 low position. Side rails up X 1. Warm blanket given. 07:14 No provider procedures requiring assistance completed. ls4 Administered Medications: No medications were administered Outcome: 07:17 Discharge ordered by MD. pm1 07:21 Discharged to home ambulatory, with significant other. ls4 07:21 Condition: good 07:21 Discharge instructions given to patient, significant other, Instructed on discharge instructions, follow up and referral plans. medication usage, safety practices, Demonstrated understanding of instructions, follow-up care, medications, Prescriptions given X 2. 07:24 Patient left the ED. ls4 Signatures: Mariam Vazquez, SAM RN aa5 Audi Lim NP PANEL MACHINE SETTER pm1 Princess Llamas ag3 Yissel Singleton, RN RN ls4
[2018-07-27 07:31] VITALS: BP 123/92; TEMP 97.4; O2SAT 97
== END 2018-07-27 07:24 | disposition home or self-care (01) ==
LOC: ER 06:50
DX: H66.92 Otitis media, unspecified, left ear (principal); Z91.013 Allergy to seafood

== ENCOUNTER 2018-11-21 05:20 | Emergency (ER) | payer OTHER ==
--- OUTSIDE RECORDS SUMMARY | 2018-11-21 05:22 | XMS REPORT ---
:1990 [facility] Address [address] [place] [address] Dr. Sant[address] [place] [id number] Care Team Providers Name Role Phone BLANCA [...] 06/12/20177:01 PMDictated By: ENZO CABRERA.Date: 06/12/2017 19:07 [facility] 2017-06-12 18:51:00 Test Item Value Reference [...] EGFR if Non- >60 mL/min/1.73m\S\2 Estimated Glomerular Prydeinig (test Filtration Rate (eGFR) code=EGFRNA) Reference Intervals [...] Gap (test code=GAP) 11 CBC WITH AUTO [id number] 18:02:00 Test Item Value Reference Range Comments [...] (test code=NRBC_AUTO) 0 /100WBC 0-2 URINALYSIS WITHOUT [id number] 17:32:00 Test Item Value Reference Range Comments Color (test code=UCOLR) Yellow Lt. Yellow Clarity (test code=UCLAR) Clear Glucose (test code=UGLUC) Negative Negative Bilirubin (test code=UBILI) Negative Negative Ketones (test code=UKET) Negative Negative Specific [place] (test code=USPGR) 1.015 1.005-1.030 Blood (test code=UBLD) Negative Negative PH (test code=UPH) 7.0 4.5-8.0 Protein (test code=UPROT) Negative Negative Urobilinogen (test code=U UROB) 0.2 E.U./dL >0.2 Nitrite (test code=UNITR) Negative Negative Leukocyte Esterase (test code=ULEUK) Negative Negative
[2018-11-21] MEDS ORDERED: MAGNE/ALUM HYDROXD 30 ML UCUP ONE (06:39)
[2018-11-21] MEDS ORDERED: LIDOCAINE VISCOUS 2% SOLN 15 ML UDC ONE (06:40)
[2018-11-21] MEDS ORDERED: ACETAMINOPHEN 500 MG TAB ONE (06:40)
[2018-11-21] MEDS ORDERED: KETOROLAC 30 MG/ML INJ ONE (06:40)
--- NOTE | 2018-11-21 07:38 | EDPHYS ---
Physician Documentation [facility] Name: Sunny Angel Age: 28 yrs Sex: Male : 1990 Arrival Date: 11/21/2018 Time: 05:21 Bed 6 Private MD: ED Physician Eladio Cooper HPI: 11/21 06:29 This 28 yrs old Male presents to ER via EMS with complaints of Headache < cp 24hrs Old. 06:29 The patient complains of pain to the left base of the skull. cp 06:30 The patient describes the headache as aching. Onset: The symptoms/episode cp began/occurred yesterday. Associated signs and symptoms: Pertinent positives: Photophobia left lower jaw pain, Pertinent negatives: fever, sinus congestion, sinus tenderness, weakness. Severity of symptoms: in the emergency department the pain has improved, mildly, a " 8" out of "10". Historical: - Allergies: 05:27 Latex, Natural Rubber; tl2 05:27 SEAFOOD; tl2 - Home Meds: 05:27 None [Active]; tl2 - PMHx: 05:27 Heart Murmur; Hernia; tl2 - PSHx: 05:27 Hernia repair; tl2 - Immunization history:: Adult Immunizations up to date. - Social history:: Smoking status: Patient uses tobacco products, denies chronic smoking, but will smoke occasionally. - Ebola Screening: : No symptoms or risks identified at this time. ROS: 06:31 Eyes: Negative for injury, pain, redness, and discharge. cp 06:31 Constitutional: Positive for chills, Negative for fever, poor PO intake. 06:31 ENT: Positive for ear pain, left lower jaw pain, Negative for drainage from ear(s), difficulty swallowing, difficulty handling secretions, hoarseness. 06:31 Neck: Positive for pain with movement, pain at rest, of the left base of the skull and left lateral neck. 06:31 Cardiovascular: Negative for chest pain, palpitations. 06:31 Respiratory: Negative for cough, shortness of breath, wheezing. 06:31 Abdomen/GI: Negative for vomiting, diarrhea, constipation. 06:31 Skin: Negative for cellulitis, rash. 06:31 Neuro: Positive for headache, Negative for altered mental status, weakness. 06:31 All other systems are negative. Exam: 06:40 Constitutional: The patient appears in no acute distress, alert, awake, non-toxic, well cp developed, well nourished. 06:40 Head/face: Noted is tenderness, that is moderate, of the left base of the skull, Sinus cp tenderness, is not appreciated. 06:40 Eyes: Periorbital structures: appear normal, Pupils: equal, round, and reactive to light and accomodation, Extraocular movements: intact throughout, Conjunctiva: normal, no exudate, no injection, Lids and lashes: appear normal, bilaterally. 06:40 ENT: External ear(s): are unremarkable, Ear canal(s): are normal, clear, TM's: bulging, is not appreciated, bilaterally, erythema, on the left, Nose: is normal, Mouth: Lips: moist, Oral mucosa: moist, Posterior pharynx: Airway: no evidence of obstruction, patent, Uvula: midline, swelling, is not appreciated, erythema, that is mild, exudate, is not appreciated. 06:40 Neck: ROM/movement: pain, that is mild, with rotation to the left, limited range of motion, is not appreciated, Meningeal signs: are not present, nuchal rigidity, is not appreciated, Lymph nodes: no appreciated lymphadenopathy. 06:40 Chest/axilla: Inspection: normal, Palpation: is normal, no crepitus, no tenderness. 06:40 Cardiovascular: Rate: normal, Rhythm: regular. 06:40 Respiratory: the patient does not display signs of respiratory distress, Respirations: normal, Breath sounds: are clear throughout, no decreased breath sounds, no stridor, no wheezing. Vital Signs: 05:27 BP 139 / 105; Pulse 78; Resp 18; Temp 97.4(O); Pulse Ox 97% on R/A; Weight 81.65 kg; tl2 Height 5 ft. 4 in. (162.56 cm); Pain 8/10; 06:05 BP 115 / 87; Pulse 80; Resp 18; Pulse Ox 97% ; ea 07:09 BP 111 / 65; Pulse 64; Resp 18; Pulse Ox 97% on R/A; hj 07:49 BP 112 / 68; Pulse 65; Resp 18; Pulse Ox 100% on R/A; hj 05:27 Body Mass Index 30.90 (81.65 kg, 162.56 cm) tl2 MDM: 06:02 Patient medically screened. wa 07:00 Differential diagnosis: intracerebral hemorrhage, meningoencephalitis, migraine, cp tension headache, trigeminal neuralgia. 07:36 Data reviewed: vital signs, nurses notes, lab test result(s), and as a result, I will cp discharge patient. 07:36 Counseling: I had a detailed discussion with the patient and/or guardian regarding: the cp historical points, exam findings, and any diagnostic results supporting the discharge/admit diagnosis, lab results, to return to the emergency department if symptoms worsen or persist or if there are any questions or concerns that arise at home. Response to treatment: the patient's symptoms have markedly improved after treatment, and as a result, I will discharge patient. 11/21 06:23 Order name: Strep; Complete Time: 07:31 11/21 07:32 Interpretation: Reviewed. 11/21 06:23 Order name: Influenza Screen (a \\T\\ B); Complete Time: 07:31 11/21 07:32 Interpretation: Reviewed. 11/21 06:56 Order name: Throat Culture EDMS Administered Medications: 06:34 Drug: TORadol 60 mg Route: IM; Site: left gluteus; ea 07:28 Follow up: Response: No adverse reaction hj 07:28 Follow up: Response: No adverse reaction; Pain is decreased hj 06:34 Drug: GI Cocktail without - (Maalox Suspension 30 ml, Lidocaine Liquid 2 % 15 ea ml) Route: PO; 07:27 Follow up: Response: No adverse reaction hj 06:34 Drug: Tylenol 1000 mg Route: PO; ea 07:27 Follow up: Response: No adverse reaction; Pain is decreased hj Disposition: 07:55 Chart complete. cp 07:58 Co-signature as Attending Physician, Eladio Cooper MD I agree with the assessment and tx plan of care. Disposition: 11/21/18 07:37 Discharged to Home. Impression: Otitis media, unspecified, left ear, Strain of muscle, fascia and tendon at neck level - neck, Headache. - Condition is Stable. - Discharge Instructions: Otitis Media, Adult, Muscle Strain, Neck Exercises. - Prescriptions for Amoxicillin 875 mg Oral Tablet - take 1 tablet by ORAL route every 12 hours for 10 days; 20 tablet. Baclofen 10 mg Oral Tablet - take 1 tablet by ORAL route 3 times per day no driving while taking medication; 15 tablet. Medrol (Jossue) 4 mg Oral Tablets, Dose Pack - take 1 tablet by ORAL route as directed - follow package instructions; 1 packet. - Medication Reconciliation Form, Thank You Letter, Antibiotic Education, Prescription Opioid Use form. - Follow up: Private Physician; When: 2 - 3 days; Reason: Recheck today's complaints. - Problem is new. - Symptoms have improved. Signatures: Dispatcher [employer] EDMS Santos Perez RN RN hj Tyrone Rader PA PA cp Arlyn Feng RN RN tl2 Valerie Bills RN RN ea Eladio Cooper MD MD wa Corrections: (The following items were deleted from the chart) 07:51 07:37 11/21/2018 07:37 Discharged to Home. Impression: Otitis media, unspecified, left hj ear; Strain of muscle, fascia and tendon at neck level - neck; Headache. Condition is Stable. Forms are Medication Reconciliation Form, Thank You Letter, Antibiotic Education, Prescription Opioid Use. Follow up: Private Physician; When: 2 - 3 days; Reason: Recheck today's complaints. Problem is new. Symptoms have improved. cp
--- NOTE | 2018-11-21 07:38 | ER ---
Nurse's Notes [facility] Name: Sunny Angel Age: 28 yrs Sex: Male : 1990 Arrival Date: 11/21/2018 Time: 05:21 Bed 6 Private MD: Diagnosis: Otitis media, unspecified, left ear;Strain of muscle, fascia and tendon at neck level-neck;Headache Presentation: 11/21 05:22 Presenting complaint: Patient states: headache back of head and neck since 8 pm tl2 yesterday. Pt states that nothing is working for the pain. Pt stated that he was feeling hot and sweaty. Transition of care: patient was not received from another setting of care. Onset of symptoms was November 20, 2018 at 20:00. Risk Assessment: Do you want to hurt yourself or someone else? Patient reports no desire to harm self or others. Initial Sepsis Screen: Does the patient meet any 2 criteria? No. Patient's initial sepsis screen is negative. Does the patient have a suspected source of infection? No. Patient's initial sepsis screen is negative. Care prior to arrival: Glucose check: 110. 05:22 Method Of Arrival: EMS: [facility] tl2 05:22 Acuity: GILBERT 3 tl2 Triage Assessment: 05:27 Headache History: Denies prior headaches. General: Appears in no apparent distress. tl2 uncomfortable, Behavior is anxious. Pain: Complains of pain in occipital area and base of the skull Pain currently is 8 out of 10 on a pain scale. Pain began 10 hours Also complains of photophobia. Neuro: Level of Consciousness is awake, alert, obeys commands, Oriented to person, place, time, situation. Cardiovascular: Denies chest pain. Respiratory: Airway is patent Respiratory effort is even, unlabored, Respiratory pattern is regular, symmetrical. GI: No signs and/or symptoms were reported involving the gastrointestinal system. : No signs and/or symptoms were reported regarding the genitourinary system. Derm: Skin is pink, warm \T\ dry. Historical: - Allergies: 05:27 Latex, Natural Rubber; tl2 05:27 SEAFOOD; tl2 - Home Meds: 05:27 None [Active]; tl2 - PMHx: 05:27 Heart Murmur; Hernia; tl2 - PSHx: 05:27 Hernia repair; tl2 - Immunization history:: Adult Immunizations up to date. - Social history:: Smoking status: Patient uses tobacco products, denies chronic smoking, but will smoke occasionally. - Ebola Screening: : No symptoms or risks identified at this time. Screenin:34 Abuse screen: Denies threats or abuse. Nutritional screening: No deficits noted. tl2 Tuberculosis screening: No symptoms or risk factors identified. Fall Risk None identified. Assessment: 05:35 General: see triage assessment. tl2 07:10 General: Appears in no apparent distress. uncomfortable, Behavior is calm, cooperative, hj appropriate for age. Pain: Complains of pain in left base of the skull and base of the skull and occipital area. Neuro: Level of Consciousness is awake, alert, obeys commands, Oriented to person, place, time, situation, Appropriate for age. Cardiovascular: Capillary refill < 3 seconds Patient's skin is warm and dry. Respiratory: Airway is patent Respiratory effort is even, unlabored, Respiratory pattern is regular, symmetrical. GI: No signs and/or symptoms were reported involving the gastrointestinal system. : No signs and/or symptoms were reported regarding the genitourinary system. EENT: No signs and/or symptoms were reported regarding the EENT system. Derm: No signs and/or symptoms reported regarding the dermatologic system. Musculoskeletal: No signs and/or symptoms reported regarding the musculoskeletal system. 07:49 Reassessment: Patient and/or family updated on plan of care and expected duration. Pain hj level reassessed. Patient is alert, oriented x 3, equal unlabored respirations, skin warm/dry/pink. D/C instructions;. Vital Signs: 05:27 BP 139 / 105; Pulse 78; Resp 18; Temp 97.4(O); Pulse Ox 97% on R/A; Weight 81.65 kg; tl2 Height 5 ft. 4 in. (162.56 cm); Pain 8/10; 06:05 BP 115 / 87; Pulse 80; Resp 18; Pulse Ox 97% ; ea 07:09 BP 111 / 65; Pulse 64; Resp 18; Pulse Ox 97% on R/A; hj 07:49 BP 112 / 68; Pulse 65; Resp 18; Pulse Ox 100% on R/A; hj 05:27 Body Mass Index 30.90 (81.65 kg, 162.56 cm) tl2 ED Course: 05:21 Patient arrived in ED. tl2 05:25 Triage completed. tl2 05:27 Arm band placed on right wrist. tl2 05:34 Patient has correct armband on for positive identification. Bed in low position. Call tl2 light in reach. Side rails up X 1. 06:04 Valerie Bills RN is Primary Nurse. ea 06:16 Tyrone Rader PA is PHCP. cp 06:16 Eladio Cooper MD is Attending Physician. cp 07:00 Primary Nurse role handed off by Valerie Bills RN hj 07:00 Santos Perez RN is Primary Nurse. hj 07:51 No provider procedures requiring assistance completed. Patient did not have IV access hj during this emergency room visit. Administered Medications: 06:34 Drug: TORadol 60 mg Route: IM; Site: left gluteus; ea 07:28 Follow up: Response: No adverse reaction hj 07:28 Follow up: Response: No adverse reaction; Pain is decreased hj 06:34 Drug: GI Cocktail without - (Maalox Suspension 30 ml, Lidocaine Liquid 2 % 15 ea ml) Route: PO; 07:27 Follow up: Response: No adverse reaction hj 06:34 Drug: Tylenol 1000 mg Route: PO; ea 07:27 Follow up: Response: No adverse reaction; Pain is decreased hj Outcome: 07:37 Discharge ordered by MD. cp 07:51 Discharged to home ambulatory, with family. hj 07:51 Condition: stable 07:51 Discharge instructions given to patient, family, Instructed on discharge instructions, follow up and referral plans. medication usage, Demonstrated understanding of instructions, follow-up care, medications, Prescriptions given X 3. 07:51 Patient left the ED. hj Signatures: Santos Perez RN RN Tyrone Rader PA PA cp Knox, Taylor, RN RN 2 Valerie Bills RN RN Corrections: (The following items were deleted from the chart) 05:26 05:22 Care prior to arrival: None. tl2 tl2
[2018-11-21 12:06] VITALS: TEMP 97.4
[2018-11-21 12:10] VITALS: BP 112/68; O2SAT 100
== END 2018-11-21 07:51 | disposition home or self-care (01) ==
LOC: ER 05:20
DX: H66.92 Otitis media, unspecified, left ear (principal); S16.1XXA Strain of muscle, fascia and tendon at neck level, initial encounter; Z91.040 Latex allergy status; Z91.013 Allergy to seafood; Z72.0 Tobacco use
CPT/HCPCS: 87070; 87081; 87804; 96372; 99283

== ENCOUNTER 2019-03-19 12:05 | Emergency (ER) | payer OTHER ==
--- OUTSIDE RECORDS SUMMARY | 2019-03-19 12:08 | XMS REPORT ---
:1990 [facility] Address [facility] [address] [place] [address] Care Team Providers Name Role Phone BLANCA [...] 06/12/20177:01 PMDictated By: ENZO CABRERA.Date: 06/12/2017 19:07 [facility] 2017-06-12 18:51:00 Test Item Value Reference Range [...] EGFR if Non- >60 mL/min/1.73m\S\2 Estimated Glomerular [place] (test Filtration Rate (eGFR) code=EGFRNA) Reference Intervals [...] Gap (test code=GAP) 11 CBC WITH AUTO [id number] 18:02:00 Test Item Value Reference Range Comments [...] (test code=NRBC_AUTO) 0 /100WBC 0-2 URINALYSIS WITHOUT [id number] 17:32:00 Test Item Value Reference Range Comments Color (test code=UCOLR) Yellow Lt. Yellow Clarity (test code=UCLAR) Clear Glucose (test code=UGLUC) Negative Negative Bilirubin (test code=UBILI) Negative Negative Ketones (test code=UKET) Negative Negative Specific [place] (test code=USPGR) 1.015 1.005-1.030 Blood (test code=UBLD) Negative Negative PH (test code=UPH) 7.0 4.5-8.0 Protein (test code=UPROT) Negative Negative Urobilinogen (test code=U UROB) 0.2 E.U./dL >0.2 Nitrite (test code=UNITR) Negative Negative Leukocyte Esterase (test code=ULEUK) Negative Negative
--- NOTE | 2019-03-19 13:18 | RAD REPORT ---
EXAM DESCRIPTION: Fely Felton (2 Views)03/19/2019 1:12 pm CLINICAL HISTORY: Chest pain COMPARISON: 2016 FINDINGS: The lungs appear clear of acute infiltrate. The heart is normal size IMPRESSION: No acute abnormalities displayed
--- NOTE | 2019-03-19 13:38 | EDPHYS ---
Physician Documentation [facility] Name: Sunny Angel Age: 28 yrs Sex: Male : 1990 Arrival Date: 03/19/2019 Time: 12:08 Bed 14 Private MD: ED Physician Jamaal Umana HPI: 03/19 13:39 This 28 yrs old Male presents to ER via Ambulatory with complaints of Chest snw Wall Pain. 13:39 Onset: The symptoms/episode began/occurred gradually, 4 day(s) ago, and became snw persistent. Associated signs and symptoms: Pertinent positives: chest pain, cough. Modifying factors: The patient symptoms are alleviated by nothing, the patient symptoms are aggravated by movement, pressure on left side or lying on left side. The patient has not experienced similar symptoms in the past. The patient has not recently seen a physician. frequent bronchitis, "slowed way down lately" on smoking. Historical: - Allergies: 12:31 Latex, Natural Rubber; iw 12:31 SEAFOOD; iw - Home Meds: 12:31 None [Active]; iw - PMHx: 12:31 Heart Murmur; Hernia; iw - PSHx: 12:31 Hernia repair; iw - Immunization history:: Adult Immunizations. - Social history:: Smoking status: . - Ebola Screening: : Patient negative for fever greater than or equal to 101.5 degrees Fahrenheit, and additional compatible Ebola Virus Disease symptoms Patient denies exposure to infectious person Patient denies travel to an Ebola-affected area in the 21 days before illness onset No symptoms or risks identified at this time. ROS: 13:39 Constitutional: Negative for fever, chills, and weight loss, Eyes: Negative for injury, snw pain, redness, and discharge, ENT: Negative for injury, pain, and discharge, Neck: Negative for injury, pain, and swelling, Abdomen/GI: Negative for abdominal pain, nausea, vomiting, diarrhea, and constipation, Back: Negative for injury and pain, : Negative for injury, bleeding, discharge, and swelling, MS/Extremity: Negative for injury and deformity, Skin: Negative for injury, rash, and discoloration, Neuro: Negative for headache, weakness, numbness, tingling, and seizure. 13:39 Cardiovascular: Positive for chest pain. 13:39 Respiratory: Positive for cough. Exam: 13:39 Constitutional: This is a well developed, well nourished patient who is awake, alert, snw and in no acute distress. Head/Face: Normocephalic, atraumatic. Eyes: Pupils equal round and reactive to light, extra-ocular motions intact. Lids and lashes normal. Conjunctiva and sclera are non-icteric and not injected. Cornea within normal limits. Periorbital areas with no swelling, redness, or edema. ENT: Nares patent. No nasal discharge, no septal abnormalities noted. Tympanic membranes are normal and external auditory canals are clear. Oropharynx with no redness, swelling, or masses, exudates, or evidence of obstruction, uvula midline. Mucous membranes moist. Neck: Trachea midline, no thyromegaly or masses palpated, and no cervical lymphadenopathy. Supple, full range of motion without nuchal rigidity, or vertebral point tenderness. No Meningismus. Chest/axilla: Normal chest wall appearance and motion. Nontender with no deformity. No lesions are appreciated. Cardiovascular: Regular rate and rhythm with a normal S1 and S2. No gallops, murmurs, or rubs. Normal PMI, no JVD. No pulse deficits. Respiratory: Lungs have equal breath sounds bilaterally, clear to auscultation and percussion. No rales, rhonchi or wheezes noted. No increased work of breathing, no retractions or nasal flaring. Abdomen/GI: Soft, non-tender, with normal bowel sounds. No distension or tympany. No guarding or rebound. No evidence of tenderness throughout. Back: No spinal tenderness. No costovertebral tenderness. Full range of motion. Male : Normal genitalia with no discharge or lesions. MS/ Extremity: Pulses equal, no cyanosis. Neurovascular intact. Full, normal range of motion. Neuro: Awake and alert, GCS 15, oriented to person, place, time, and situation. Cranial nerves II-XII grossly intact. Motor strength 5/5 in all extremities. Sensory grossly intact. Cerebellar exam normal. Normal gait. Psych: Awake, alert, with orientation to person, place and time. Behavior, mood, and affect are within normal limits. 13:42 ECG was reviewed by the Attending Physician. snw Vital Signs: 12:32 BP 124 / 86; Pulse 93; Resp 16; Temp 98.3; Pulse Ox 98% on R/A; Pain 5/10; iw 13:09 BP 102 / 54; Pulse 82; Resp 16; Temp 98.3(O); Pulse Ox 98% ; mh5 14:00 BP 114 / 62; Pulse 81; Resp 18; Temp 97.9; Pulse Ox 99% on R/A; ph MDM: 13:10 Patient medically screened. snw 13:41 Data reviewed: vital signs, nurses notes. Data interpreted: Pulse oximetry: on room air snw is 98 %. Interpretation: normal. Counseling: I had a detailed discussion with the patient and/or guardian regarding: the historical points, exam findings, and any diagnostic results supporting the discharge/admit diagnosis, radiology results, the need for outpatient follow up, to return to the emergency department if symptoms worsen or persist or if there are any questions or concerns that arise at home. Special discussion: Based on the patient's history, exam, and Dx evaluation, there is no indication for emergent intervention or inpatient Tx. It is understood by the patient/guardian that if the Sx's persist or worsen they need to return immediately for re-evaluation. Based on the history and exam findings, there is no indication for further emergent testing or inpatient evaluation. I discussed with the patient/guardian the need to see the primary care provider for further evaluation of the symptoms. 03/19 12:36 Order name: Chest Pa And Lat (2 Views) XRAY; Complete Time: 13:29 snw 03/19 12:36 Order name: EKG; Complete Time: 12:36 snw 03/19 12:36 Order name: EKG - Nurse/Tech; Complete Time: 13:16 snw Administered Medications: 13:53 Drug: predniSONE 40 mg Route: PO; ph 14:00 Follow up: Response: No adverse reaction; Medication administered at discharge. ph 13:53 Drug: ZyrTEC - Cetirizine 10 mg Route: PO; ph 14:00 Follow up: Response: No adverse reaction; Medication administered at discharge. ph 13:53 Drug: Pepcid 20 mg Route: PO; ph 14:00 Follow up: Response: No adverse reaction; Medication administered at discharge. ph Disposition: 03/19/19 13:37 Discharged to Home. Impression: Bronchitis, not specified as acute or chronic, Chest pain, unspecified. - Condition is Stable. - Discharge Instructions: Acute Bronchitis, Adult, Nonspecific Chest Pain, Gastroesophageal Reflux Disease, Adult, Steps to Quit Smoking, Smoking Hazards, Cool Mist Vaporizer, Cough, Adult. - Prescriptions for Protonix 40 mg Oral Tablet - take 1 tablet by ORAL route once daily; 30 tablet. Zyrtec 10 mg Oral Tablet - take 1 tablet by ORAL route once daily As needed; 20 tablet. Prednisone 20 mg Oral Tablet - take 2 tablet by ORAL route once daily for 5 days; 10 tablet. - Work release form, Medication Reconciliation Form, Thank You Letter, Antibiotic Education, Prescription Opioid Use, Family Work Release form. - Follow up: Private Physician; When: 2 - 3 days; Reason: Recheck today's complaints, Continuance of care, Re-evaluation by your physician. Follow up: Emergency Department; When: As needed; Reason: Trouble breathing, Worsening of condition. Addendum: 03/24/2019 09:41 Co-signature as Attending Physician, Jamaal Umana MD I agree with the assessment and k dr plan of care. Signatures: Dispatcher [employer] EDCT Jamaal Umana MD MD [facility] Beatriz De Jesus, [employer]-C [employer]-Csnw Iris Corley RN RN Gracia Landeros RN RN ss Keyanna Oshea RN RN ph Corrections: (The following items were deleted from the chart) 03/19 14:01 13:37 03/19/2019 13:37 Discharged to Home. Impression: Bronchitis, not specified as ss acute or chronic; Chest pain, unspecified. Condition is Stable. Forms are Medication Reconciliation Form, Thank You Letter, Antibiotic Education, Prescription Opioid Use. Follow up: Private Physician; When: 2 - 3 days; Reason: Recheck today's complaints, Continuance of care, Re-evaluation by your physician. Follow up: Emergency Department; When: As needed; Reason: Trouble breathing, Worsening of condition. snw
--- NOTE | 2019-03-19 13:38 | ER ---
Nurse's Notes [facility] Name: Sunny Angel Age: 28 yrs Sex: Male : 1990 Arrival Date: 03/19/2019 Time: 12:08 Bed 14 Private MD: Diagnosis: Bronchitis, not specified as acute or chronic;Chest pain, unspecified Presentation: 03/19 12:28 Presenting complaint: Patient states: left sided chest pain/rib pain X 4 days, cough iw started today, pain described as pressure, persistent and annoying. Transition of care: patient was not received from another setting of care. Onset of symptoms was March 15, 2019. Risk Assessment: Do you want to hurt yourself or someone else? Patient reports no desire to harm self or others. Initial Sepsis Screen: Does the patient meet any 2 criteria? No. Patient's initial sepsis screen is negative. Does the patient have a suspected source of infection? No. Patient's initial sepsis screen is negative. Care prior to arrival: None. 12:28 Method Of Arrival: Ambulatory iw 12:28 Acuity: GILBERT 3 iw Historical: - Allergies: 12:31 Latex, Natural Rubber; iw 12:31 SEAFOOD; iw - Home Meds: 12:31 None [Active]; iw - PMHx: 12:31 Heart Murmur; Hernia; iw - PSHx: 12:31 Hernia repair; iw - Immunization history:: Adult Immunizations. - Social history:: Smoking status: . - Ebola Screening: : Patient negative for fever greater than or equal to 101.5 degrees Fahrenheit, and additional compatible Ebola Virus Disease symptoms Patient denies exposure to infectious person Patient denies travel to an Ebola-affected area in the 21 days before illness onset No symptoms or risks identified at this time. Screenin:00 Abuse screen: Denies threats or abuse. Denies injuries from another. Nutritional ph screening: No deficits noted. Tuberculosis screening: No symptoms or risk factors identified. Fall Risk None identified. Assessment: 13:00 General: Appears in no apparent distress. comfortable, Behavior is calm, cooperative, ph appropriate for age. Pain: Complains of pain in left rib area Pain does not radiate. Pain began 2-3 days ago. Neuro: Level of Consciousness is awake, alert, obeys commands, Oriented to person, place, time, situation. Cardiovascular: Reports chest pain, Denies nausea, shortness of breath, vomiting. Respiratory: Reports cough that is Airway is patent Respiratory effort is even, unlabored, Respiratory pattern is regular, symmetrical, Breath sounds are clear bilaterally. GI: No signs and/or symptoms were reported involving the gastrointestinal system. Derm: Skin is intact, is healthy with good turgor, Skin is pink, warm \T\ dry. Musculoskeletal: Circulation, motion, and sensation intact. Range of motion: intact in all extremities. Vital Signs: 12:32 BP 124 / 86; Pulse 93; Resp 16; Temp 98.3; Pulse Ox 98% on R/A; Pain 5/10; iw 13:09 BP 102 / 54; Pulse 82; Resp 16; Temp 98.3(O); Pulse Ox 98% ; mh5 14:00 BP 114 / 62; Pulse 81; Resp 18; Temp 97.9; Pulse Ox 99% on R/A; ph ED Course: 12:08 Patient arrived in ED. as 12:30 Triage completed. iw 12:32 Arm band placed on. iw 12:35 Beatriz De Jesus FNP-C is PHCP. snw 12:36 Jamaal Umana MD is Attending Physician. snw 12:52 Keyanna Oshea RN is Primary Nurse. ph 13:00 Patient has correct armband on for positive identification. Bed in low position. Call ph light in reach. Side rails up X 1. Pulse ox on. NIBP on. 13:00 No provider procedures requiring assistance completed. Patient did not have IV access ph during this emergency room visit. Patient maintains SpO2 saturation greater than 95% on room air. 13:03 EKG done, by information technology auditor. reviewed by Beatriz SHAW. at1 13:15 Chest Pa And Lat (2 Views) XRAY In Process Unspecified. EDMS Administered Medications: 13:53 Drug: predniSONE 40 mg Route: PO; ph 14:00 Follow up: Response: No adverse reaction; Medication administered at discharge. ph 13:53 Drug: ZyrTEC - Cetirizine 10 mg Route: PO; ph 14:00 Follow up: Response: No adverse reaction; Medication administered at discharge. ph 13:53 Drug: Pepcid 20 mg Route: PO; ph 14:00 Follow up: Response: No adverse reaction; Medication administered at discharge. Outcome: 13:37 Discharge ordered by . snw 14:01 Patient left the ED. 14:01 Discharged to home ambulatory, with significant other. ph 14:01 Condition: good 14:01 Discharge instructions given to patient, Instructed on discharge instructions, follow up and referral plans. medication usage, Demonstrated understanding of instructions, follow-up care, medications, Prescriptions given X 3. Signatures: Dispatcher [employer] EDMA Beatriz De Jesus, EMBEDDED SOFTWARE PROGRAMMER-C EMBEDDED SOFTWARE PROGRAMMER-Toma Canales Irene, SAM VARGAS Gracia Landeros RN RN Maryana Bui, household manager EKG Tat1 Keyanna Oshea RN RN Gayla Mulligan [facility]
[2019-03-19] MEDS ORDERED: predniSONE 20 MG TAB ONE (13:51)
[2019-03-19] MEDS ORDERED: FAMOTIDINE 20 MG TAB ONE (13:51)
[2019-03-19] MEDS ORDERED: CETIRIZINE HCL 5 MG TABLET ONE (13:51)
[2019-03-19 14:08] VITALS: TEMP 98.3; O2SAT 98
[2019-03-19 14:09] VITALS: BP 102/54
--- NOTE | 2019-03-19 15:55 | EKG ---
Test Date: 2019-03-19 Test Time: 13:01:12 Rail Specialist: ADAN MEASUREMENT RESULTS: Intervals: Rate: 70 NC: 186 QRSD: 100 QT: 360 QTc: 388 Pierz: P: 31 NC: 186 QRS: 53 T: 63 INTERPRETIVE STATEMENTS: Normal sinus rhythm Normal ECG Compared to ECG 05/07/2016 01:46:28 Sinus arrhythmia no longer present Electronically Signed On 03-19-19 15:54:05 CDT by Richard Haynes
== END 2019-03-19 14:01 | disposition home or self-care (01) ==
LOC: ER 12:05
DX: J40 Bronchitis, not specified as acute or chronic (principal); Z72.0 Tobacco use; Z91.013 Allergy to seafood; Z91.040 Latex allergy status; Z91.048 Other nonmedicinal substance allergy status
CPT/HCPCS: 93005; 71046; 99284; J7512

== ENCOUNTER 2019-03-28 13:07 | Emergency (ER) | payer OTHER ==
--- OUTSIDE RECORDS SUMMARY | 2019-03-28 13:09 | XMS REPORT ---
:1990 [facility] [address] [place] [address] Care Team Providers Name Role Phone BLANCA [...] 06/12/20177:01 PMDictated By: ENZO CABRERA.Date: 06/12/2017 19:07 [facility] 2017-06-12 18:51:00 Test Item Value [...] EGFR if Non- >60 mL/min/1.73m\S\2 Estimated Glomerular [place] (test Filtration Rate (eGFR) code=EGFRNA) Reference Intervals [...] Gap (test code=GAP) 11 CBC WITH AUTO [id number] 18:02:00 Test Item Value Reference Range Comments [...] (test code=NRBC_AUTO) 0 /100WBC 0-2 URINALYSIS WITHOUT [id number] 17:32:00 Test Item Value Reference Range Comments Color (test code=UCOLR) Yellow Lt. Yellow Clarity (test code=UCLAR) Clear Glucose (test code=UGLUC) Negative Negative Bilirubin (test code=UBILI) Negative Negative Ketones (test code=UKET) Negative Negative Specific [place] (test code=USPGR) 1.015 1.005-1.030 Blood (test code=UBLD) Negative Negative PH (test code=UPH) 7.0 4.5-8.0 Protein (test code=UPROT) Negative Negative Urobilinogen (test code=U UROB) 0.2 E.U./dL >0.2 Nitrite (test code=UNITR) Negative Negative Leukocyte Esterase (test code=ULEUK) Negative Negative
--- NOTE | 2019-03-28 14:11 | RAD REPORT ---
EXAM DESCRIPTION: RAD - Chest Pa And Lat (2 Views) - 03/28/2019 2:05 pm CLINICAL HISTORY: COUGHcongestion COMPARISON: March 19 TECHNIQUE: PA and lateral views of the chest were obtained. FINDINGS: The lungs are clear. Heart size is normal and central vasculature is within normal limit s. No pleural effusion or pneumothorax seen. No acute bony finding noted. No aortic abnormality. IMPRESSION: No acute cardiopulmonary process. No significant interval change.
--- NOTE | 2019-03-28 16:31 | ER ---
Nurse's Notes [facility] Name: Sunny Angel Age: 28 yrs Sex: Male : 1990 Arrival Date: 03/28/2019 Time: 13:09 Bed Waiting Private MD: Diagnosis: Presentation: 03/28 13:19 Presenting complaint: Patient states: He was seen here one week ago for cough and aj1 congestion, he was diagnosed with bronchitis and sent home with a Rx for steroids, which he has finished, but he isn't feeling any better. Denies fever. Reports diarrhea, non-productive cough, shortness of breath at night, and congestion. Transition of care: patient was not received from another setting of care. Onset of symptoms was March 2019. Risk Assessment: Do you want to hurt yourself or someone else? Patient reports no desire to harm self or others. Initial Sepsis Screen: Does the patient meet any 2 criteria? No. Patient's initial sepsis screen is negative. Does the patient have a suspected source of infection? No. Patient's initial sepsis screen is negative. Care prior to arrival: None. 13:19 Method Of Arrival: Ambulatory aj 13:19 Acuity: GILBERT 3 aj1 Triage Assessment: 13:21 General: Appears in no apparent distress. comfortable, Behavior is calm, cooperative, aj1 appropriate for age. Pain: Denies pain. Neuro: Level of Consciousness is awake, alert, obeys commands, Oriented to person, place, time, situation. Cardiovascular: Patient's skin is warm and dry. Respiratory: Reports cough that is non-productive, Airway is patent Respiratory effort is even, unlabored, Respiratory pattern is regular, symmetrical. Historical: - Allergies: 13:21 Latex, Natural Rubber; aj1 13:21 SEAFOOD; aj1 - Home Meds: 13:21 None [Active]; aj1 - PMHx: 13:21 Heart Murmur; Hernia; aj1 - Immunization history:: Flu vaccine is not up to date. - Social history:: Smoking status: Patient uses tobacco products, smokes one-half pack cigarettes per day. - Ebola Screening: : Patient denies travel to an Ebola-affected area in the 21 days before illness onset. Vital Signs: 13:21 BP 141 / 91; Pulse 82; Resp 18; Temp 97.6; Pulse Ox 98% on R/A; Weight 81.65 kg (R); aj1 Height 5 ft. 4 in. (162.56 cm) (R); Pain 0/10; 13:21 Body Mass Index 30.90 (81.65 kg, 162.56 cm) aj1 ED Course: 13:09 Patient arrived in ED. as 13:21 Triage completed. aj1 13:21 Arm band placed on Patient placed in waiting room, Patient notified of wait time. aj1 13:43 Tyrone Rader PA is PHCP. cp 13:43 Jamaal Umana MD is Attending Physician. cp 14:51 Patient's name was called from ER lobby. No response. aj1 15:25 Patient's name was called from ER lobby. No response. aj1 16:30 Patient's name was called from ER lobby. No response. Unable to locate patient. Will aj1 disposition as left without being seen by a provider. Administered Medications: No medications were administered Outcome: 16:30 Patient left the ED. aj1 Signatures: Haylee Cohen RN RN aj1 Toma Mulligan as Tyrone Rader PA PA cp
[2019-03-28 16:55] VITALS: BP 141/91; TEMP 97.6; O2SAT 98
== END 2019-03-28 16:30 | disposition left against medical advice (07) ==
LOC: ER 13:07
DX: Z53.21 Procedure and treatment not carried out due to patient leaving prior to being seen by health care provider (principal)
CPT/HCPCS: 71046; 99281

== ENCOUNTER 2019-03-29 01:15 | Emergency (ER) | payer OTHER ==
--- OUTSIDE RECORDS SUMMARY | 2019-03-29 01:17 | XMS REPORT ---
:1990 [facility] [address] [place] [address] Care Team Providers Name Role Phone BLANCA [...] 06/12/20177:01 PMDictated By: ENZO CABRERA.Date: 06/12/2017 19:07 [facility] 2017-06-12 18:51:00 Test Item Value Reference Range [...] EGFR if Non- >60 mL/min/1.73m\S\2 Estimated Glomerular [place] (test Filtration Rate (eGFR) code=EGFRNA) Reference Intervals [...] Gap (test code=GAP) 11 CBC WITH AUTO [id number] 18:02:00 Test Item Value Reference Range Comments [...] (test code=NRBC_AUTO) 0 /100WBC 0-2 URINALYSIS WITHOUT [id number] 17:32:00 Test Item Value Reference Range Comments Color (test code=UCOLR) Yellow Lt. Yellow Clarity (test code=UCLAR) Clear Glucose (test code=UGLUC) Negative Negative Bilirubin (test code=UBILI) Negative Negative Ketones (test code=UKET) Negative Negative Specific [place] (test code=USPGR) 1.015 1.005-1.030 Blood (test code=UBLD) Negative Negative PH (test code=UPH) 7.0 4.5-8.0 Protein (test code=UPROT) Negative Negative Urobilinogen (test code=U UROB) 0.2 E.U./dL >0.2 Nitrite (test code=UNITR) Negative Negative Leukocyte Esterase (test code=ULEUK) Negative Negative
[2019-03-29] MEDS ORDERED: ASPIRIN 81 MG CHEWABLE TABLET ONE (02:10)
[2019-03-29 03:13] LABS: Basophils % 0.9 % (0-1.3); Hematocrit 40.4 % (39.6-49.0); Lymphocytes % 18.5 % (15.3-44.8); MPV 8.3 fL (7.6-11.3); RBC Red Blood Cell Count 4.64 M/uL (4.33-5.43)
[2019-03-29 03:27] LABS: Barbiturates NEGATIVE (NEGATIVE); Benzodiazepines NEGATIVE (NEGATIVE); Cocaine NEGATIVE (NEGATIVE); METHAMPHETAM NEGATIVE (NEGATIVE); Methadone NEGATIVE (NEGATIVE); Opiates NEGATIVE (NEGATIVE); Phencyclidine NEGATIVE (NEGATIVE); THC Cannibis NEGATIVE (NEGATIVE)
[2019-03-29 03:31] LABS: Urine Glucose TRACE (NEG)
[2019-03-29 03:34] LABS: Urine Blood NEGATIVE (NEG); Urine Protein NEGATIVE (NEG)
[2019-03-29 03:42] LABS: ALT/SGPT 46 U/L (12-78); AST/SGOT 11 U/L (15-37); Albumin 3.8 g/dL (3.4-5.0); Alkaline Phosphatase 74 U/L (45-117); BUN Blood Urea Nitrogen 7 mg/dL (7-18); Bicarbonate 24 mmol/L (21-32); Bilirubin Direct < 0.1 mg/dL (0-0.2); Bilirubin Total 0.3 mg/dL (0.2-1.0); Glucose Level 135 mg/dL (74-106); Magnesium 2.4 mg/dL (1.8-2.4); Potassium 3.7 mmol/L (3.5-5.1); Protein, Total 6.6 g/dL (6.4-8.2); Sodium Level 141 mmol/L (136-145); Troponin (Emerg Dept Use Only) < 0.02 ng/mL (0.0-0.045)
--- NOTE | 2019-03-29 03:52 | EDPHYS ---
Physician Documentation [facility] Name: Sunny Angel Age: 28 yrs Sex: Male : 1990 Arrival Date: 03/29/2019 Time: 01:18 Bed 7 Private MD: RUBÉN Physician Tyrone Harrison HPI: 03/29 01:52 This 28 yrs old Male presents to ER via Ambulatory with complaints of Chest flo Pain. 01:52 This 28 yrs old Male presents to ER via Ambulatory with complaints of Chest flo Pain. 01:52 The patient or guardian reports chest pain that is located primarily in the anterior flo chest wall, left. The pain radiates to the left arm, Associated signs and symptoms: The patient has no apparent associated signs or symptoms. The chest pain is described as sharp. Modifying factors: The symptoms are alleviated by remaining still, the symptoms are aggravated by breathing, movement, palpation of area. Severity of pain: At its worst the pain was mild moderate in the emergency department the pain is unchanged. The patient has experienced similar episodes in the past, several times. Historical: - Allergies: 01:30 Latex, Natural Rubber; ak1 01:30 SEAFOOD; ak1 - Home Meds: 01:30 None [Active]; ak1 - PMHx: 01:30 Heart Murmur; Hernia; ak1 - PSHx: 01:30 Hernia repair; oral sx; ak1 - Immunization history:: Adult Immunizations unknown. - Social history:: Smoking status: Patient uses tobacco products, smokes one pack cigarettes per day. - Ebola Screening: : No symptoms or risks identified at this time. - Family history:: not pertinent. ROS: 01:52 Constitutional: Negative for fever, chills, and weight loss, Eyes: Negative for injury, flo pain, redness, and discharge, ENT: Negative for injury, pain, and discharge, Neck: Negative for injury, pain, and swelling, Respiratory: Negative for shortness of breath, cough, wheezing, and pleuritic chest pain, Abdomen/GI: Negative for abdominal pain, nausea, vomiting, diarrhea, and constipation, Back: Negative for injury and pain, : Negative for injury, bleeding, discharge, and swelling, MS/Extremity: Negative for injury and deformity, Skin: Negative for injury, rash, and discoloration, Neuro: Negative for headache, weakness, numbness, tingling, and seizure, Psych: Negative for depression, anxiety, suicide ideation, homicidal ideation, and hallucinations, Allergy/Immunology: Negative for hives, rash, and allergies, Endocrine: Negative for neck swelling, polydipsia, polyuria, polyphagia, and marked weight changes, Hematologic/Lymphatic: Negative for swollen nodes, abnormal bleeding, and unusual bruising. 01:52 Cardiovascular: Positive for chest pain. Exam: 01:52 Constitutional: This is a well developed, well nourished patient who is awake, alert, flo and in no acute distress. Head/Face: Normocephalic, atraumatic. Eyes: Pupils equal round and reactive to light, extra-ocular motions intact. Lids and lashes normal. Conjunctiva and sclera are non-icteric and not injected. Cornea within normal limits. Periorbital areas with no swelling, redness, or edema. ENT: Nares patent. No nasal discharge, no septal abnormalities noted. Tympanic membranes are normal and external auditory canals are clear. Oropharynx with no redness, swelling, or masses, exudates, or evidence of obstruction, uvula midline. Mucous membranes moist. Neck: Trachea midline, no thyromegaly or masses palpated, and no cervical lymphadenopathy. Supple, full range of motion without nuchal rigidity, or vertebral point tenderness. No Meningismus. Chest/axilla: Normal chest wall appearance and motion. Nontender with no deformity. No lesions are appreciated. Cardiovascular: Regular rate and rhythm with a normal S1 and S2. No gallops, murmurs, or rubs. Normal PMI, no JVD. No pulse deficits. Respiratory: Lungs have equal breath sounds bilaterally, clear to auscultation and percussion. No rales, rhonchi or wheezes noted. No increased work of breathing, no retractions or nasal flaring. Abdomen/GI: Soft, non-tender, with normal bowel sounds. No distension or tympany. No guarding or rebound. No evidence of tenderness throughout. Back: No spinal tenderness. No costovertebral tenderness. Full range of motion. Male : Normal genitalia with no discharge or lesions. Skin: Warm, dry with normal turgor. Normal color with no rashes, no lesions, and no evidence of cellulitis. Vital Signs: 01:30 BP 136 / 91; Pulse 81; Resp 20; Temp 97.1(O); Pulse Ox 98% on R/A; Weight 83.91 kg (R); ak1 Height 5 ft. 4 in. (162.56 cm) (R); Pain 4/10; 02:06 BP 116 / 75; Pulse 93; Resp 18 S; Pulse Ox 96% on R/A; cc3 03:05 BP 99 / 64; Pulse 77; Resp 16; Pulse Ox 96% on R/A; ak1 03:40 BP 107 / 69; Pulse 82; Resp 16; Pulse Ox 98% on R/A; ak1 01:30 Body Mass Index 31.75 (83.91 kg, 162.56 cm) ak1 MDM: 01:25 Patient medically screened. [facility] 01:57 Data reviewed: vital signs, nurses notes, lab test result(s), EKG, radiologic studies, flo plain films. 03/29 01:52 Order name: Basic Metabolic Panel; Complete Time: 03:50 [facility] 03/29 01:52 Order name: CBC with Diff; Complete Time: 03:28 [facility] 03/29 01:52 Order name: LFT's; Complete Time: 03:50 [facility] 03/29 01:52 Order name: Magnesium; Complete Time: 03:50 [facility] 03/29 01:52 Order name: Troponin (emerg Dept Use Only); Complete Time: 03:50 [facility] 03/29 01:52 Order name: UDS; Complete Time: 03:28 [facility] 03/29 01:52 Order name: EKG; Complete Time: 01:53 [facility] 03/29 01:52 Order name: Cardiac monitoring; Complete Time: 02:00 [facility] 03/29 01:52 Order name: EKG - Nurse/Tech; Complete Time: 02:04 [facility] 03/29 01:52 Order name: Labs collected and sent; Complete Time: 02:08 [facility] 03/29 01:52 Order name: D-Dimer; Complete Time: 03:50 [facility] 03/29 02:18 Order name: Urine Dipstick--Ancillary (enter results); Complete Time: 03:50 [facility] 03/29 01:52 Order name: O2 Per Protocol; Complete Time: 02:04 [facility] 03/29 01:52 Order name: O2 Sat Monitoring; Complete Time: 02:04 [facility] Administered Medications: 02:10 Drug: Aspirin Chewable Tablet 81 mg Route: PO; cc3 03:04 Follow up: Response: No adverse reaction ak1 Disposition: 03/29/19 03:50 Discharged to Home. Impression: Bronchitis, not specified as acute or chronic, Other chest pain - non cardiac, Tobacco use, Tobacco abuse counseling. - Condition is Stable. - Discharge Instructions: Acute Bronchitis, Adult, Nonspecific Chest Pain, Tobacco Use Disorder, Aspirin and Your Heart, Cough, Adult. - Prescriptions for Ibuprofen 600 mg Oral Tablet - take 1 tablet by ORAL route every 8 hours As needed take with food; 20 tablet. - Medication Reconciliation Form, Thank You Letter, Antibiotic Education, Prescription Opioid Use form. - Follow up: Private Physician; When: 2 - 3 days; Reason: Recheck today's complaints, Continuance of care, Re-evaluation by your physician. - Problem is new. - Symptoms have improved. Signatures: Dispatcher [employer] EDME Tyrone Harrison MD MD cha Krenek, Amber, RN RN ak1 Herlinda Ross cc3 Corrections: (The following items were deleted from the chart) 03:51 03:50 03/29/2019 03:50 Discharged to Home. Impression: Bronchitis, not specified as flo acute or chronic; Other chest pain - non cardiac. Condition is Stable. Discharge Instructions: Acute Bronchitis, Adult, Nonspecific Chest Pain, Tobacco Use Disorder, Aspirin and Your Heart, Cough, Adult. Prescriptions for Ibuprofen 600 mg Oral Tablet - take 1 tablet by ORAL route every 8 hours As needed take with food; 20 tablet. and Forms are Medication Reconciliation Form, Thank You Letter, Antibiotic Education, Prescription Opioid Use. Follow up: Private Physician; When: 2 - 3 days; Reason: Recheck today's complaints, Continuance of care, Re-evaluation by your physician. Problem is new. Symptoms have improved. flo 03:56 01:52 IV Saline Lock ordered. flo ak1 03:57 03:51 03/29/2019 03:50 Discharged to Home. Impression: Bronchitis, not specified as ak1 acute or chronic; Other chest pain - non cardiac; Tobacco use; Tobacco abuse counseling. Condition is Stable. Discharge Instructions: Acute Bronchitis, Adult, Nonspecific Chest Pain, Tobacco Use Disorder, Aspirin and Your Heart, Cough, Adult. Prescriptions for Ibuprofen 600 mg Oral Tablet - take 1 tablet by ORAL route every 8 hours As needed take with food; 20 tablet. and Forms are Medication Reconciliation Form, Thank You Letter, Antibiotic Education, Prescription Opioid Use. Follow up: Private Physician; When: 2 - 3 days; Reason: Recheck today's complaints, Continuance of care, Re-evaluation by your physician. Problem is new. Symptoms have improved. flo
--- NOTE | 2019-03-29 03:52 | ER ---
Nurse's Notes [facility] Name: Sunny Angel Age: 28 yrs Sex: Male : 1990 Arrival Date: 03/29/2019 Time: 01:18 Bed 7 Private MD: Diagnosis: Bronchitis, not specified as acute or chronic;Other chest pain-non cardiac;Tobacco use;Tobacco abuse counseling Presentation: 03/29 01:28 Presenting complaint: Patient states: cough, SOB and pain to left chest wall since last ak1 week after being seen in ER dx bronchitis. pt stated he finished his steroids. Transition of care: patient was not received from another setting of care. Onset of symptoms is unknown. Risk Assessment: Do you want to hurt yourself or someone else? Patient reports no desire to harm self or others. Initial Sepsis Screen: Does the patient meet any 2 criteria? No. Patient's initial sepsis screen is negative. Does the patient have a suspected source of infection? No. Patient's initial sepsis screen is negative. Care prior to arrival: None. 01:28 Method Of Arrival: Ambulatory ak1 01:28 Acuity: GILBERT 3 ak1 Triage Assessment: 01:30 General: Appears in no apparent distress. Behavior is cooperative, anxious. Pain: ak1 Complains of pain in left clavicle, anterior aspect of left upper chest and left breast. EENT: No signs and/or symptoms were reported regarding the EENT system. Neuro: Level of Consciousness is awake, alert, obeys commands, Oriented to person, place, time, situation, Appropriate for age Experimental Physicist are equal bilaterally Moves all extremities. Gait is steady, Speech is normal. Cardiovascular: Reports chest pain, shortness of breath, Heart tones S1 S2. Respiratory: Reports shortness of breath since 1 week ago after being seen in ER. Airway is patent. GI: Abdomen is round non-distended, Reports diarrhea, vomiting. : No signs and/or symptoms were reported regarding the genitourinary system. Derm: No signs and/or symptoms reported regarding the dermatologic system. Musculoskeletal: No signs and/or symptoms reported regarding the musculoskeletal system. Historical: - Allergies: 01:30 Latex, Natural Rubber; ak1 01:30 SEAFOOD; ak1 - Home Meds: 01:30 None [Active]; ak1 - PMHx: 01:30 Heart Murmur; Hernia; ak1 - PSHx: 01:30 Hernia repair; oral sx; ak1 - Immunization history:: Adult Immunizations unknown. - Social history:: Smoking status: Patient uses tobacco products, smokes one pack cigarettes per day. - Ebola Screening: : No symptoms or risks identified at this time. - Family history:: not pertinent. Screenin:31 Abuse screen: Denies threats or abuse. Denies injuries from another. Nutritional ak1 screening: No deficits noted. Tuberculosis screening: No symptoms or risk factors identified. Fall Risk None identified. Assessment: 01:27 Pain: Pain does not radiate. Pain began one week ago. cc3 01:31 Reassessment: Patient appears in no apparent distress at this time. No changes from ak1 previously documented assessment. Patient and/or family updated on plan of care and expected duration. Pain level reassessed. Patient is alert, oriented x 3, equal unlabored respirations, skin warm/dry/pink. 02:06 Reassessment: Patient appears in no apparent distress at this time. Patient and/or cc3 family updated on plan of care and expected duration. Pain level reassessed. Patient is alert, oriented x 3, equal unlabored respirations, skin warm/dry/pink. 03:17 Reassessment: Patient appears in no apparent distress at this time. Patient and/or cc3 family updated on plan of care and expected duration. Pain level reassessed. Patient is alert, oriented x 3, equal unlabored respirations, skin warm/dry/pink. Patient denies pain at this time. Patient states feeling better. Patient states symptoms have improved. Vital Signs: 01:30 BP 136 / 91; Pulse 81; Resp 20; Temp 97.1(O); Pulse Ox 98% on R/A; Weight 83.91 kg (R); ak1 Height 5 ft. 4 in. (162.56 cm) (R); Pain 4/10; 02:06 BP 116 / 75; Pulse 93; Resp 18 S; Pulse Ox 96% on R/A; cc3 03:05 BP 99 / 64; Pulse 77; Resp 16; Pulse Ox 96% on R/A; ak1 03:40 BP 107 / 69; Pulse 82; Resp 16; Pulse Ox 98% on R/A; ak1 01:30 Body Mass Index 31.75 (83.91 kg, 162.56 cm) ak1 ED Course: 01:18 Patient arrived in ED. ds1 01:25 Tyrone Harrison MD is Attending Physician. flo 01:27 Herlinda Ross is Primary Nurse. cc3 01:29 Triage completed. ak1 01:30 Arm band placed on Patient placed in an exam room, Patient notified of wait time. ak1 01:31 Patient has correct armband on for positive identification. Bed in low position. Call ak1 light in reach. Side rails up X 1. Adult w/ patient. shop service technician on. Pulse ox on. NIBP on. 01:31 Patient maintains SpO2 saturation greater than 95% on room air. ak1 02:08 Missed attempt(s): 20 gauge in right antecubital area. Bleeding controlled, band aid ak1 applied, catheter tip intact. 03:05 Lab(s) recollected, by engineer geophysical laboratory, sent to lab. ak1 03:56 No provider procedures requiring assistance completed. Patient did not have IV access ak1 during this emergency room visit. Administered Medications: 02:10 Drug: Aspirin Chewable Tablet 81 mg Route: PO; cc3 03:04 Follow up: Response: No adverse reaction ak1 Outcome: 03:50 Discharge ordered by . [facility] 03:56 Discharged to home ambulatory, with family. ak1 03:56 Condition: good 03:56 Discharge instructions given to patient, family, Instructed on discharge instructions, follow up and referral plans. Demonstrated understanding of instructions, follow-up care, medications, Prescriptions given X 1. 03:57 Patient left the ED. ak1 Signatures: Tyrone Harrison MD MD cha Sanford, Demi ds1 Lupis Levine, SAM RN ak1 Herlinda Ross cc3 Corrections: (The following items were deleted from the chart) 04:19 03:17 Reassessment: Patient appears in no apparent distress at this time. Patient cc3 and/or family updated on plan of care and expected duration. Pain level reassessed. Patient is alert, oriented x 3, equal unlabored respirations, skin warm/dry/pink. cc3
[2019-03-29 04:04] VITALS: TEMP 97.1
[2019-03-29 04:09] VITALS: BP 107/69; O2SAT 98
--- NOTE | 2019-03-29 14:14 | EKG ---
Test Date: 2019-03-29 Test Time: 01:46:23 Glazing Machine Operator: SPEEDY MEASUREMENT RESULTS: Intervals: Rate: 85 [place]: 178 QRSD: 86 QT: 356 QTc: 423 [place]: P: 53 [place]: 178 QRS: 60 T: 63 INTERPRETIVE STATEMENTS: Normal sinus rhythm with sinus arrhythmia Possible Left atrial enlargement Borderline ECG Compared to ECG 03/19/2019 13:01:12 No significant changes Electronically Signed On 03-29-19 14:13:20 CDT by Richard Haynes
== END 2019-03-29 03:57 | disposition home or self-care (01) ==
LOC: ER 01:15
DX: J40 Bronchitis, not specified as acute or chronic (principal); R07.89 Other chest pain; Z72.0 Tobacco use; Z71.6 Tobacco abuse counseling; Z91.040 Latex allergy status; Z91.013 Allergy to seafood
CPT/HCPCS: 36415; 80048; 80076; 80307; 81003; 83735; 84484; 85025; 85379; 93005; 99285

== ENCOUNTER 2019-05-18 15:20 | Emergency (ER) | payer OTHER ==
[2019-05-18 16:20] LABS: ALT/SGPT 29 U/L (12-78); AST/SGOT 10 U/L (15-37); Absolute Lymphocytes (CBC) 3.1 K/uL (0.7-4.9); Albumin 3.8 g/dL (3.4-5.0); Alkaline Phosphatase 83 U/L (45-117); BUN Blood Urea Nitrogen 9 mg/dL (7-18); Basophils % 1.5 % (0-1.3); Bicarbonate 25 mmol/L (21-32); Bilirubin Direct < 0.1 mg/dL (0-0.2); Bilirubin Total 0.3 mg/dL (0.2-1.0); Glucose Level 129 mg/dL (74-106); Lipase 97 U/L (73-393); Lymphocytes % 33.2 % (15.3-44.8); MPV 8.4 fL (7.6-11.3); Potassium 3.1 mmol/L (3.5-5.1); RBC Red Blood Cell Count 5.03 M/uL (4.33-5.43); Sodium Level 142 mmol/L (136-145)
--- NOTE | 2019-05-18 16:58 | RAD REPORT ---
EXAM DESCRIPTION: CT - Abdomen Pelvis W Contrast - 05/18/2019 4:44 pm CLINICAL HISTORY: Abdominal pain COMPARISON: 2018 TECHNIQUE: Computed axial tomography of the abdomen pelvis was obtained. 100 cc Isovue-300 was admin istered intravenously. Oral contrast was not requested which limits evaluation of bowel. All CT scans are performed using dose optimization technique as appropriate and may include automated exposure control or mA/KV adjustment according to patient size. FINDINGS: Hepatic and splenic granulomata Pancreas, adrenal and kidneys appear unremarkable. There is no evidence of diverticulitis. Normal appendix IMPRESSION: No acute abnormality is displayed.
--- NOTE | 2019-05-18 17:27 | EDPHYS ---
Physician Documentation [facility] Name: Sunny Angel Age: 28 yrs Sex: Male : 1990 Arrival Date: 05/18/2019 Time: 15:24 Bed 27 Private MD: ED Physician Mali Bustillo HPI: 05/18 16:36 This 28 yrs old Male presents to ER via Ambulatory with complaints of jr8 Abdominal Pain, Toothache, Fever. 16:36 The patient presents with abdominal pain in the lower abdomen. Onset: The jr8 symptoms/episode began/occurred gradually, 6 day(s) ago. The symptoms do not radiate. Associated signs and symptoms: Pertinent positives: diarrhea. The symptoms are described as stabbing. Modifying factors: The symptoms are alleviated by nothing, the symptoms are aggravated by nothing. Severity of pain: At its worst the pain was moderate in the emergency department the pain is unchanged. The patient has not experienced similar symptoms in the past. The patient has not recently seen a physician. also here to be evaluated for ear and dental pain on left side . Historical: - Allergies: 15:37 Latex, Natural Rubber; tr5 15:37 SEAFOOD; tr5 - Home Meds: 15:37 None [Active]; tr5 - PMHx: 15:37 Heart Murmur; Hernia; tr5 - Immunization history:: Adult Immunizations up to date. - Social history:: Smoking status: Patient/guardian denies using tobacco, never smoked. - Ebola Screening: : No symptoms or risks identified at this time. ROS: 16:36 Constitutional: Negative for fever, chills, and weight loss. jr8 16:36 ENT: Positive for dental pain, ear pain, Negative for Gum pain nasal discharge, rhinorrhea, sinus congestion, sinus pain, sore throat, difficulty swallowing, difficulty handling secretions, hoarseness. 16:36 Abdomen/GI: Positive for abdominal pain, diarrhea, Negative for nausea and vomiting, abdominal distension, anorexia, dysphagia, hematemesis, black/tarry stool, rectal pain, rectal bleeding, bowel incontinence, flatulence. 16:36 All other systems are negative. Exam: 16:36 Eyes: Pupils equal round and reactive to light, extra-ocular motions intact. Lids and jr8 lashes normal. Conjunctiva and sclera are non-icteric and not injected. Cornea within normal limits. Periorbital areas with no swelling, redness, or edema. ENT: Nares patent. No nasal discharge, no septal abnormalities noted. Tympanic membranes are normal and external auditory canals are clear. Oropharynx with no redness, swelling, or masses, exudates, or evidence of obstruction, uvula midline. Mucous membranes moist. Diffuse dental decay and carries noted throught upper and lower teeth. No external abscess to gum line identified Neck: Trachea midline, no thyromegaly or masses palpated, and no cervical lymphadenopathy. Supple, full range of motion without nuchal rigidity, or vertebral point tenderness. No Meningismus. Cardiovascular: Regular rate and rhythm with a normal S1 and S2. No gallops, murmurs, or rubs. Normal PMI, no JVD. No pulse deficits. Respiratory: Lungs have equal breath sounds bilaterally, clear to auscultation and percussion. No rales, rhonchi or wheezes noted. No increased work of breathing, no retractions or nasal flaring. Back: No spinal tenderness. No costovertebral tenderness. Full range of motion. Skin: Warm, dry with normal turgor. Normal color with no rashes, no lesions, and no evidence of cellulitis. MS/ Extremity: Pulses equal, no cyanosis. Neurovascular intact. Full, normal range of motion. Neuro: Awake and alert, GCS 15, oriented to person, place, time, and situation. Cranial nerves II-XII grossly intact. Motor strength 5/5 in all extremities. Sensory grossly intact. Cerebellar exam normal. Normal gait. 16:36 Abdomen/GI: Inspection: abdomen appears normal, Bowel sounds: active, all quadrants, Palpation: soft, in all quadrants, moderate abdominal tenderness, in the suprapubic area and left lower quadrant, mass, is not appreciated, rebound tenderness, is not appreciated, voluntary guarding, is not appreciated, involuntary guarding, is not appreciated, no appreciated organomegaly, Indicators: McBurney's point is not tender, Bower's sign is negative, Rovsing's sign is negative, Liver: tenderness, is not appreciated. Vital Signs: 15:37 BP 128 / 88; Pulse 89; Resp 16; Temp 97.7; Pulse Ox 97% on R/A; Weight 81.65 kg; Height tr5 5 ft. 4 in. (162.56 cm); Pain 12/16; 15:37 Body Mass Index 30.90 (81.65 kg, 162.56 cm) tr5 MDM: 15:32 Patient medically screened. 8 17:25 Data reviewed: vital signs, nurses notes, lab test result(s), radiologic studies, CT jr8 scan. Data interpreted: Pulse oximetry: on room air is 97 %. Interpretation: normal. Counseling: I had a detailed discussion with the patient and/or guardian regarding: the historical points, exam findings, and any diagnostic results supporting the discharge/admit diagnosis, lab results, radiology results, the need for outpatient follow up, a family practitioner, a silicator, to return to the emergency department if symptoms worsen or persist or if there are any questions or concerns that arise at home. 05/18 15:44 Order name: Basic Metabolic Panel; Complete Time: 16:21 05/18 15:44 Order name: CBC with Diff; Complete Time: 16:24 [facility] 05/18 15:44 Order name: Creatinine for Radiology; Complete Time: 16:19 [facility] 05/18 15:44 Order name: Hepatic Function; Complete Time: 16:21 [facility] 05/18 15:44 Order name: Lipase; Complete Time: 16:21 [facility] 05/18 16:19 Order name: CT Abd/Pelvis - IV Contrast Only [facility] 05/18 15:44 Order name: IV Saline Lock; Complete Time: 16:07 [facility] 05/18 15:44 Order name: Labs collected and sent; Complete Time: 16:07 Administered Medications: No medications were administered Disposition: 05/19 16:47 Co-signature as Attending Physician, Mali Bustillo MD. ma2 Disposition: 05/18/19 17:25 Discharged to Home. Impression: Diarrhea, unspecified, Otalgia, Dental caries. - Condition is Stable. - Discharge Instructions: Dental Abscess, Dental Caries, Adult, Diarrhea, Adult. - Prescriptions for Augmentin 875- 125 mg Oral Tablet - take 1 tablet by ORAL route every 12 hours for 10 days; 20 tablet. Flagyl 500 mg Oral Tablet - take 1 tablet by ORAL route every 6 hours for 10 days; 40 tablet. - Medication Reconciliation Form, Thank You Letter, Antibiotic Education, Prescription Opioid Use form. - Follow up: Sona Burton MD; When: 5 - 6 days; Reason: Recheck today's complaints, Continuance of care, Re-evaluation by your physician. - Problem is new. - Symptoms have improved. Signatures: Dispatcher [employer] EDPascual Beltran PA PA jr8 Mali Bustillo MD MD ma2 Delvin Briscoe, RN RN tr5 Corrections: (The following items were deleted from the chart) 05/18 17:53 17:25 05/18/2019 17:25 Discharged to Home. Impression: Diarrhea, unspecified; Otalgia; tr5 Dental caries. Condition is Stable. Forms are Medication Reconciliation Form, Thank You Letter, Antibiotic Education, Prescription Opioid Use. Follow up: Sona Burton; When: 5 - 6 days; Reason: Recheck today's complaints, Continuance of care, Re-evaluation by your physician. Problem is new. Symptoms have improved. jr8
--- NOTE | 2019-05-18 17:27 | ER ---
Nurse's Notes [facility] Name: Sunny Angel Age: 28 yrs Sex: Male : 1990 Arrival Date: 05/18/2019 Time: 15:24 Bed 27 Private MD: Diagnosis: Diarrhea, unspecified;Otalgia;Dental caries Presentation: 05/18 15:33 Presenting complaint: Patient states: "About 6 or 7 days ago i started having some tr5 lower stomach cramping and diarrhea. I also was having chills with fever, L ear, teeth and neck pain and today some nasal congestion. I have been taking OTC ibuprofen, tylenol and ear drops for the pain and fever. Transition of care: patient was not received from another setting of care. Onset of symptoms was May 18, 2019. 15:33 Method Of Arrival: Ambulatory tr5 15:33 Acuity: GILBERT 3 tr5 17:51 Risk Assessment: Do you want to hurt yourself or someone else? Patient reports no tr5 desire to harm self or others. Initial Sepsis Screen: Does the patient meet any 2 criteria? No. Patient's initial sepsis screen is negative. Does the patient have a suspected source of infection? No. Patient's initial sepsis screen is negative. Care prior to arrival: None. Historical: - Allergies: 15:37 Latex, Natural Rubber; tr5 15:37 SEAFOOD; tr5 - Home Meds: 15:37 None [Active]; tr5 - PMHx: 15:37 Heart Murmur; Hernia; tr5 - Immunization history:: Adult Immunizations up to date. - Social history:: Smoking status: Patient/guardian denies using tobacco, never smoked. - Ebola Screening: : No symptoms or risks identified at this time. Screenin:38 Abuse screen: Denies threats or abuse. Nutritional screening: No deficits noted. tr5 Tuberculosis screening: No symptoms or risk factors identified. Fall Risk None identified. Assessment: 15:38 General: Appears uncomfortable, Behavior is calm, cooperative, appropriate for age. tr5 Pain: Complains of pain in left ear, right lower quadrant, left lower quadrant, mouth and neck Pain currently is 6 out of 10 on a pain scale. Quality of pain is described as aching, crampy, Pain began 6-7 days ago. Neuro: Level of Consciousness is awake, alert, obeys commands, Oriented to person, place, time, Manager Of Exhibitions And Collections are equal bilaterally Moves all extremities. Cardiovascular: Heart tones present Capillary refill < 3 seconds Pulses are all present. Respiratory: Airway is patent Respiratory effort is even, unlabored, Respiratory pattern is regular, symmetrical. GI: Bowel sounds present X 4 quads. Abd is soft Reports lower abdominal pain, diarrhea. : No signs and/or symptoms were reported regarding the genitourinary system. EENT: Reports nasal congestion pain in left ear and left jaw. Derm: No signs and/or symptoms reported regarding the dermatologic system. Musculoskeletal: No signs and/or symptoms reported regarding the musculoskeletal system. Vital Signs: 15:37 BP 128 / 88; Pulse 89; Resp 16; Temp 97.7; Pulse Ox 97% on R/A; Weight 81.65 kg; Height tr5 5 ft. 4 in. (162.56 cm); Pain 6/10; 15:37 Body Mass Index 30.90 (81.65 kg, 162.56 cm) tr5 ED Course: 15:24 Patient arrived in ED. mr 15:26 Delvin Briscoe, RN is Primary Nurse. tr5 15:32 Pascual Brantley PA is PHCP. jr8 15:32 Mali Bustillo MD is Attending Physician. jr8 15:35 Triage completed. tr5 15:37 Arm band placed on. tr5 15:38 Bed in low position. Call light in reach. Side rails up X 1. Pulse ox on. NIBP on. tr5 15:54 Initial lab(s) drawn, by dc, sent to lab. Inserted saline lock: 20 gauge in right tr5 antecubital area, using aseptic technique. 16:45 CT Abd/Pelvis - IV Contrast Only In Process Unspecified. EDMS 16:45 CT completed. Patient tolerated procedure well. Patient moved back from CT. bq 17:25 Sona Burton MD is Referral Physician. jr8 17:50 No provider procedures requiring assistance completed. IV discontinued. tr5 Administered Medications: No medications were administered Outcome: 17:25 Discharge ordered by . jr8 17:50 Discharged to home ambulatory. tr5 17:50 Condition: stable 17:50 Discharge instructions given to patient, family, Instructed on discharge instructions, follow up and referral plans. medication usage, Demonstrated understanding of instructions, follow-up care, medications, Prescriptions given X 2. 17:53 Patient left the ED. tr5 Signatures: Dispatcher [employer] Jeanine Eller Betty bq Roszak, Josh, PA PA jr8 Rodriguez, Tommie, RN RN tr5
[2019-05-18 18:00] VITALS: BP 128/88; TEMP 97.7; O2SAT 97
--- OUTSIDE RECORDS SUMMARY | 2019-05-19 07:12 | XMS REPORT ---
:1990 [facility] [address] [place] [address] Care Team Providers Name Role Phone BLANCA [...] EGFR if Non- >60 mL/min/1.73m\S\2 Estimated Glomerular Citizen Of [place] (test Filtration Rate (eGFR) code=EGFRNA) Reference Intervals [...] Gap (test code=GAP) 11 CBC WITH AUTO [id number] 18:02:00 Test Item Value Reference Range Comments [...] (test code=NRBC_AUTO) 0 /100WBC 0-2 URINALYSIS WITHOUT [id number] 17:32:00 Test Item Value Reference Range Comments Color (test code=UCOLR) Yellow Lt. Yellow Clarity (test code=UCLAR) Clear Glucose (test code=UGLUC) Negative Negative Bilirubin (test code=UBILI) Negative Negative Ketones (test code=UKET) Negative Negative Specific [place] (test code=USPGR) 1.015 1.005-1.030 Blood (test code=UBLD) Negative Negative PH (test code=UPH) 7.0 4.5-8.0 Protein (test code=UPROT) Negative Negative Urobilinogen (test code=U UROB) 0.2 E.U./dL >0.2 Nitrite (test code=UNITR) Negative Negative Leukocyte Esterase (test code=ULEUK) Negative Negative
== END 2019-05-18 17:53 | disposition home or self-care (01) ==
LOC: ER 15:20
DX: R19.7 Diarrhea, unspecified (principal); H92.09 Otalgia, unspecified ear; K02.9 Dental caries, unspecified; Z91.040 Latex allergy status; Z91.013 Allergy to seafood; Z91.048 Other nonmedicinal substance allergy status
CPT/HCPCS: 85025; 80048; 36415; 80076; 83690; 74177; 99284; Q9967

== ENCOUNTER 2019-07-22 13:27 | Emergency (ER) | payer OTHER ==
--- OUTSIDE RECORDS SUMMARY | 2019-07-22 13:31 | XMS REPORT ---
:1990 [facility] [address] [place], [place] [address] [place] [address] Care Team Providers Name Role Phone BLANCA [...] 06/12/20177:01 PMDictated By: ENZO CABRERA.Date: 06/12/2017 19:07 [facility] 2017-06-12 18:51:00 Test Item Value [...] Non- >60 mL/min/1.73m\S\2 Estimated Glomerular Citizen Of [place] (test Filtration Rate (eGFR) code=EGFRNA) Reference Intervals [...] Gap (test code=GAP) 11 CBC WITH AUTO [id number] 18:02:00 Test Item Value Reference Range Comments [...] (test code=NRBC_AUTO) 0 /100WBC 0-2 URINALYSIS WITHOUT [id number] 17:32:00 Test Item Value Reference Range Comments Color (test code=UCOLR) Yellow Lt. Yellow Clarity (test code=UCLAR) Clear Glucose (test code=UGLUC) Negative Negative Bilirubin (test code=UBILI) Negative Negative Ketones (test code=UKET) Negative Negative Specific [place] (test code=USPGR) 1.015 1.005-1.030 Blood (test code=UBLD) Negative Negative PH (test code=UPH) 7.0 4.5-8.0 Protein (test code=UPROT) Negative Negative Urobilinogen (test code=U UROB) 0.2 E.U./dL >0.2 Nitrite (test code=UNITR) Negative Negative Leukocyte Esterase (test code=ULEUK) Negative Negative
[2019-07-22 14:39] LABS: Absolute Lymphocytes (CBC) 2.5 K/uL (0.7-4.9); Basophils % 0.6 % (0-1.3); Lymphocytes % 28.4 % (15.3-44.8); MPV 8.4 fL (7.6-11.3); RBC Red Blood Cell Count 5.33 M/uL (4.33-5.43)
[2019-07-22 14:47] LABS: Urine Blood NEGATIVE (NEG); Urine Glucose NEGATIVE (NEG); Urine Protein NEGATIVE (NEG)
[2019-07-22 14:50] LABS: ALT/SGPT 61 U/L (12-78); AST/SGOT 21 U/L (15-37); Alkaline Phosphatase 81 U/L (45-117); BUN Blood Urea Nitrogen 14 mg/dL (7-18); Bicarbonate 23 mmol/L (21-32); Bilirubin Direct < 0.1 mg/dL (0-0.2); Bilirubin Total 0.3 mg/dL (0.2-1.0); Glucose Level 112 mg/dL (74-106); Lipase 130 U/L (73-393); Protein, Total 7.2 g/dL (6.4-8.2); Sodium Level 139 mmol/L (136-145)
[2019-07-22] MEDS ORDERED: NA CHLORIDE 0.9% 1,000 ML ONE (15:05)
[2019-07-22] MEDS ORDERED: CIPROFLOXACIN 400mg IV 400 MG/200 ML BAG IV ONE (15:05)
[2019-07-22] MEDS ORDERED: METRONIDAZOLE 500mg IVPB 500 MG/100 ML BAG IV ONE (15:05)
--- NOTE | 2019-07-22 15:17 | RAD REPORT ---
EXAM DESCRIPTION: CTAbdomen Pelvis W Contrast - 07/22/2019 3:02 pm CLINICAL HISTORY: Abdominal pain. ABD PAIN COMPARISON: Abdomen Pelvis W Contrast dated 05/18/2019 TECHNIQUE: Biphasic CT imaging of the abdomen and pelvis was performed with 100 ml non-ionic IV cont rast. All CT scans are performed using dose optimization technique as appropriate and may include automated exposure control or mA/KV adjustment according to patient size. FINDINGS: The lung bases are clear. The liver, spleen, pancreas, adrenal glands and kidneys are within normal limits. No bowel obstruction, free air, free fluid or abscess. The appendix is normal. No evidence of signi ficant lymphadenopathy. No suspicious bony findings. IMPRESSION: No acute intra-abdominal or pelvic finding.
--- NOTE | 2019-07-22 16:43 | ER ---
Nurse's Notes [facility] Name: Sunny Angel Age: 28 yrs Sex: Male : 1990 Arrival Date: 07/22/2019 Time: 13:30 Bed 30 Private MD: Diagnosis: Abdominal tenderness;Dental caries Presentation: 07/22 13:38 Presenting complaint: Patient states: started with stomach hurting 4 days ago, pain is iw low radiates into groin, last night his jaw starting hurting, pain went away last night but came back when he woke up today, c/o mild pain with urination, feels pressure when he has to urinate. Transition of care: patient was not received from another setting of care. Onset of symptoms was July 17, 2019. Risk Assessment: Do you want to hurt yourself or someone else? Patient reports no desire to harm self or others. Initial Sepsis Screen: Does the patient meet any 2 criteria? No. Patient's initial sepsis screen is negative. Does the patient have a suspected source of infection? No. Patient's initial sepsis screen is negative. Care prior to arrival: None. 13:38 Method Of Arrival: Ambulatory iw 13:38 Acuity: GILBERT 3 iw Historical: - Allergies: 13:41 Latex, Natural Rubber; iw 13:41 SEAFOOD; iw - Home Meds: 13:41 None [Active]; iw - PMHx: 13:41 Heart Murmur; Hernia; iw - PSHx: 13:41 oral; iw - Immunization history:: Adult Immunizations not up to date. - Social history:: Smoking status: Patient uses tobacco products, smokes one-half pack cigarettes per day. - Ebola Screening: : Patient negative for fever greater than or equal to 101.5 degrees Fahrenheit, and additional compatible Ebola Virus Disease symptoms Patient denies exposure to infectious person Patient denies travel to an Ebola-affected area in the 21 days before illness onset No symptoms or risks identified at this time. - Family history:: not pertinent. Screenin:31 Abuse screen: Denies threats or abuse. Denies injuries from another. Nutritional mg2 screening: No deficits noted. Tuberculosis screening: No symptoms or risk factors identified. Fall Risk IV access (20 points). Assessment: 14:29 General: Appears in no apparent distress. comfortable, Behavior is calm, cooperative. mg2 Pain: Complains of pain in left jaw anf suprapubic area Pain radiates to the back. Neuro: Level of Consciousness is awake, alert, obeys commands, Oriented to person, place, time, situation. Cardiovascular: Capillary refill < 3 seconds Patient's skin is warm and dry. Respiratory: Airway is patent Respiratory effort is even, unlabored, Respiratory pattern is regular, symmetrical. GI: Bowel sounds present X 4 quads. Abd is soft and non tender Reports nausea. : Reports pain in suprapubic area. EENT: Reports pain in left jaw. Derm: Skin is intact, is healthy with good turgor, Skin is pink, warm \T\ dry. normal. Musculoskeletal: Circulation, motion, and sensation intact. Capillary refill < 3 seconds. 15:45 Reassessment: Patient appears in no apparent distress at this time. Patient and/or mg2 family updated on plan of care and expected duration. Pain level reassessed. Patient is alert, oriented x 3, equal unlabored respirations, skin warm/dry/pink. 16:45 Reassessment: Patient appears in no apparent distress at this time. Patient and/or ca1 family updated on plan of care and expected duration. Pain level reassessed. Patient is alert, oriented x 3, equal unlabored respirations, skin warm/dry/pink. Vital Signs: 13:41 BP 138 / 84; Pulse 84; Resp 16; Temp 98.5; Pulse Ox 98% on R/A; Weight 81.65 kg; Height iw 5 ft. 4 in. (162.56 cm); Pain 5/10; 15:49 BP 142 / 89; Pulse 76; Resp 17 S; Pulse Ox 99% on R/A; ca1 16:45 BP 128 / 71; Pulse 86; Resp 17 S; Pulse Ox 99% on R/A; ca1 13:41 Body Mass Index 30.90 (81.65 kg, 162.56 cm) iw ED Course: 13:30 Patient arrived in ED. as 13:41 Triage completed. iw 13:41 Arm band placed on. iw 14:10 Kyler Hardy RN is Primary Nurse. mg2 14:14 Tyrone Harrison MD is Attending Physician. flo 14:20 Inserted saline lock: 20 gauge in right antecubital area, using aseptic technique. mg2 Blood collected. 14:31 Patient has correct armband on for positive identification. Pulse ox on. NIBP on. Door mg2 closed. Warm blanket given. 14:31 No provider procedures requiring assistance completed. mg2 15:03 CT Abd/Pelvis - IV Contrast Only In Process Unspecified. EDMS 16:43 Sona Burton MD is Referral Physician. flo 17:16 IV discontinued, intact, bleeding controlled, No redness/swelling at site. Pressure ca1 dressing applied. Administered Medications: 15:19 Drug: Flagyl 500 mg Volume: 100 ml; Route: IVPB; Rate: 200 ml/hr; Infused Over: 30 mg2 mins; Site: right antecubital; 15:45 Follow up: Response: No adverse reaction; IV Status: Completed infusion mg2 15:20 Drug: NS 0.9% 1000 ml Route: IV; Rate: 1 bolus; Site: right antecubital; mg2 16:20 Follow up: Response: No adverse reaction; IV Status: Completed infusion; IV Intake: mg2 1000ml 15:25 Drug: Cipro 400 mg Volume: 200 ml; Route: IVPB; Infused Over: 60 mins; Site: right mg2 antecubital; 16:25 Follow up: IV Status: Completed infusion mg2 Intake: 16:20 IV: 1000ml; Total: 1000ml. mg2 Outcome: 16:43 Discharge ordered by . [facility] 17:16 Discharged to home ambulatory. ca1 17:16 Condition: stable 17:16 Discharge instructions given to patient, Instructed on discharge instructions, follow up and referral plans. medication usage, Demonstrated understanding of instructions, follow-up care, medications, Prescriptions given X 3. 17:17 Patient left the ED. ca1 Signatures: Dispatcher [employer] EDMO Tyrone Harrison MD MD cha Martinez, Amelia as Williams, Irene, RN RN iw Gardose, Michele, RN RN mg2 Rody Romano RN RN ca1
--- NOTE | 2019-07-22 16:44 | EDPHYS ---
Physician Documentation [facility] Name: Sunny Angel Age: 28 yrs Sex: Male : 1990 Arrival Date: 07/22/2019 Time: 13:30 Bed 30 Private MD: RUBÉN Physician Tyrone Harrison HPI: 07/22 14:53 This 28 yrs old Male presents to ER via Ambulatory with complaints of flo Abdominal Pain, Nausea, Jaw Pain. 14:53 The patient presents to the emergency department with nausea, abdominal pain, of the flo right lower quadrant and left lower quadrant. Onset: The symptoms/episode began/occurred 3 day(s) ago. Possible causes: unknown. The symptoms are aggravated by nothing. The symptoms are alleviated by nothing. Associated signs and symptoms: The patient has no apparent associated signs or symptoms. Severity of symptoms: At their worst the symptoms were mild in the emergency department the symptoms are unchanged. The patient has not experienced similar symptoms in the past. Historical: - Allergies: 13:41 Latex, Natural Rubber; iw 13:41 SEAFOOD; iw - Home Meds: 13:41 None [Active]; iw - PMHx: 13:41 Heart Murmur; Hernia; iw - PSHx: 13:41 oral; iw - Immunization history:: Adult Immunizations not up to date. - Social history:: Smoking status: Patient uses tobacco products, smokes one-half pack cigarettes per day. - Ebola Screening: : Patient negative for fever greater than or equal to 101.5 degrees Fahrenheit, and additional compatible Ebola Virus Disease symptoms Patient denies exposure to infectious person Patient denies travel to an Ebola-affected area in the 21 days before illness onset No symptoms or risks identified at this time. - Family history:: not pertinent. ROS: 14:53 Constitutional: Negative for fever, chills, and weight loss, Eyes: Negative for injury, flo pain, redness, and discharge, ENT: Negative for injury, pain, and discharge, Neck: Negative for injury, pain, and swelling, Cardiovascular: Negative for chest pain, palpitations, and edema, Respiratory: Negative for shortness of breath, cough, wheezing, and pleuritic chest pain, Back: Negative for injury and pain, : Negative for injury, bleeding, discharge, and swelling, MS/Extremity: Negative for injury and deformity, Skin: Negative for injury, rash, and discoloration, Neuro: Negative for headache, weakness, numbness, tingling, and seizure, Psych: Negative for depression, anxiety, suicide ideation, homicidal ideation, and hallucinations, Allergy/Immunology: Negative for hives, rash, and allergies, Endocrine: Negative for neck swelling, polydipsia, polyuria, polyphagia, and marked weight changes, Hematologic/Lymphatic: Negative for swollen nodes, abnormal bleeding, and unusual bruising. 14:53 Abdomen/GI: Positive for abdominal pain, nausea, of the left lower quadrant. Exam: 14:53 Constitutional: This is a well developed, well nourished patient who is awake, alert, flo and in no acute distress. Head/Face: Normocephalic, atraumatic. Eyes: Pupils equal round and reactive to light, extra-ocular motions intact. Lids and lashes normal. Conjunctiva and sclera are non-icteric and not injected. Cornea within normal limits. Periorbital areas with no swelling, redness, or edema. ENT: Nares patent. No nasal discharge, no septal abnormalities noted. Tympanic membranes are normal and external auditory canals are clear. Oropharynx with no redness, swelling, or masses, exudates, or evidence of obstruction, uvula midline. Mucous membranes moist. Neck: Trachea midline, no thyromegaly or masses palpated, and no cervical lymphadenopathy. Supple, full range of motion without nuchal rigidity, or vertebral point tenderness. No Meningismus. Chest/axilla: Normal chest wall appearance and motion. Nontender with no deformity. No lesions are appreciated. Cardiovascular: Regular rate and rhythm with a normal S1 and S2. No gallops, murmurs, or rubs. Normal PMI, no JVD. No pulse deficits. Respiratory: Lungs have equal breath sounds bilaterally, clear to auscultation and percussion. No rales, rhonchi or wheezes noted. No increased work of breathing, no retractions or nasal flaring. Back: No spinal tenderness. No costovertebral tenderness. Full range of motion. Male : Normal genitalia with no discharge or lesions. Skin: Warm, dry with normal turgor. Normal color with no rashes, no lesions, and no evidence of cellulitis. MS/ Extremity: Pulses equal, no cyanosis. Neurovascular intact. Full, normal range of motion. Neuro: Awake and alert, GCS 15, oriented to person, place, time, and situation. Cranial nerves II-XII grossly intact. Motor strength 5/5 in all extremities. Sensory grossly intact. Cerebellar exam normal. Normal gait. Psych: Awake, alert, with orientation to person, place and time. Behavior, mood, and affect are within normal limits. 14:53 Abdomen/GI: Inspection: abdomen appears normal, Bowel sounds: normal, Palpation: moderate abdominal tenderness, in the right lower quadrant and left lower quadrant, Liver: no appreciated palpable abnormalities, Hernia: not appreciated. Vital Signs: 13:41 BP 138 / 84; Pulse 84; Resp 16; Temp 98.5; Pulse Ox 98% on R/A; Weight 81.65 kg; Height iw 5 ft. 4 in. (162.56 cm); Pain 5/10; 15:49 BP 142 / 89; Pulse 76; Resp 17 S; Pulse Ox 99% on R/A; ca1 16:45 BP 128 / 71; Pulse 86; Resp 17 S; Pulse Ox 99% on R/A; ca1 13:41 Body Mass Index 30.90 (81.65 kg, 162.56 cm) iw MDM: 14:14 Patient medically screened. [facility] 14:56 Data reviewed: vital signs, nurses notes, lab test result(s), radiologic studies, CT flo scan. 07/22 14:11 Order name: Basic Metabolic Panel; Complete Time: 14:52 mg2 07/22 14:11 Order name: CBC with Diff; Complete Time: 14:52 mg2 07/22 14:11 Order name: Creatinine for Radiology; Complete Time: 14:52 mg2 07/22 14:11 Order name: Hepatic Function; Complete Time: 14:52 mg2 07/22 14:11 Order name: Lipase; Complete Time: 14:52 mg2 07/22 14:29 Order name: Urine Dipstick--Ancillary (enter results); Complete Time: 14:52 bd 07/22 14:11 Order name: IV Saline Lock; Complete Time: 14:29 mg2 07/22 14:11 Order name: Labs collected and sent; Complete Time: 14:29 mg2 07/22 14:11 Order name: Urine Dipstick-Ancillary (obtain specimen); Complete Time: 14:29 mg2 07/22 14:53 Order name: CT Abd/Pelvis - IV Contrast Only; Complete Time: 16:43 [facility] Administered Medications: 15:19 Drug: Flagyl 500 mg Volume: 100 ml; Route: IVPB; Rate: 200 ml/hr; Infused Over: 30 mg2 mins; Site: right antecubital; 15:45 Follow up: Response: No adverse reaction; IV Status: Completed infusion mg2 15:20 Drug: NS 0.9% 1000 ml Route: IV; Rate: 1 bolus; Site: right antecubital; mg2 16:20 Follow up: Response: No adverse reaction; IV Status: Completed infusion; IV Intake: mg2 1000ml 15:25 Drug: Cipro 400 mg Volume: 200 ml; Route: IVPB; Infused Over: 60 mins; Site: right mg2 antecubital; 16:25 Follow up: IV Status: Completed infusion mg2 Disposition: 07/22/19 16:43 Discharged to Home. Impression: Abdominal tenderness, Dental caries. - Condition is Stable. - Discharge Instructions: Abdominal Pain, Adult, Dental Pain, Abdominal Pain, Adult, [id number], Dental Pain, [id number]. - Prescriptions for Bentyl 20 mg Oral Tablet - take 1 tablet by ORAL route every 6 hours As needed; 20 tablet. Flagyl 500 mg Oral Tablet - take 1 tablet by ORAL route every 12 hours for 7 days; 14 tablet. Cipro 500 mg Oral Tablet - take 1 tablet by ORAL route every 12 hours for 7 days; 14 tablet. - Medication Reconciliation Form, Thank You Letter, Antibiotic Education, Prescription Opioid Use, Family Work Release form. - Follow up: Private Physician; When: 2 - 3 days; Reason: Recheck today's complaints, Continuance of care, Re-evaluation by your physician. Follow up: Sona Burton; When: 2 - 3 days; Reason: Recheck today's complaints, Re-evaluation by your physician. - Problem is new. - Symptoms have improved. Signatures: Dispatcher [employer] EDMS Tyrone Harrison MD MD cha Williams, Irene, RN RN iw Gardose, Michele, RN RN mg2 Acob, Cheryl, RN RN ca1 Corrections: (The following items were deleted from the chart) 17:17 16:43 07/22/2019 16:43 Discharged to Home. Impression: Abdominal tenderness; Dental ca1 caries. Condition is Stable. Discharge Instructions: Abdominal Pain, Adult, Dental Pain, Abdominal Pain, Adult, [id number], Dental Pain, [id number]. Prescriptions for Bentyl 20 mg Oral Tablet - take 1 tablet by ORAL route every 6 hours As needed; 20 tablet, Flagyl 500 mg Oral Tablet - take 1 tablet by ORAL route every 8 hours for 7 days; 21 tablet, Cipro 500 mg Oral Tablet - take 1 tablet by ORAL route every 12 hours for 7 days; 14 tablet. and Forms are Medication Reconciliation Form, Thank You Letter, Antibiotic Education, Prescription Opioid Use. Follow up: Private Physician; When: 2 - 3 days; Reason: Recheck today's complaints, Continuance of care, Re-evaluation by your physician. Follow up: Sona Burton; When: 2 - 3 days; Reason: Recheck today's complaints, Re-evaluation by your physician. Problem is new. Symptoms have improved. flo
[2019-07-22 17:34] VITALS: TEMP 98.5
[2019-07-22 17:36] VITALS: O2SAT 99
[2019-07-22 17:37] VITALS: BP 128/71
== END 2019-07-22 17:17 | disposition home or self-care (01) ==
LOC: ER 13:27
DX: K02.9 Dental caries, unspecified (principal); F17.210 Nicotine dependence, cigarettes, uncomplicated; Z91.013 Allergy to seafood; Z91.040 Latex allergy status; Z91.048 Other nonmedicinal substance allergy status
CPT/HCPCS: 96365; 85025; 80048; 36415; 80076; 81003; 83690; 74177; 99284; Q9967; J7030; J0744

== ENCOUNTER 2019-08-19 16:17 | Emergency (ER) | payer OTHER ==
--- OUTSIDE RECORDS SUMMARY | 2019-08-19 16:20 | XMS REPORT ---
:1990 [facility] Address [address] [place], [place] [address]jessica Santana [address] [place] [address] Care Team Providers Name Role Phone BLANCA [...] 06/12/20177:01 PMDictated By: ENZO CABRERA.Date: 06/12/2017 19:07 [facility] 2017-06-12 18:51:00 Test Item Value Reference [...] EGFR if Non- >60 mL/min/1.73m\S\2 Estimated Glomerular Gambian (test Filtration Rate (eGFR) code=EGFRNA) Reference Intervals [...] Gap (test code=GAP) 11 CBC WITH AUTO [id number] 18:02:00 Test Item Value Reference Range Comments [...] (test code=NRBC_AUTO) 0 /100WBC 0-2 URINALYSIS WITHOUT [id number] 17:32:00 Test Item Value Reference Range Comments Color (test code=UCOLR) Yellow Lt. Yellow Clarity (test code=UCLAR) Clear Glucose (test code=UGLUC) Negative Negative Bilirubin (test code=UBILI) Negative Negative Ketones (test code=UKET) Negative Negative Specific [place] (test code=USPGR) 1.015 1.005-1.030 Blood (test code=UBLD) Negative Negative PH (test code=UPH) 7.0 4.5-8.0 Protein (test code=UPROT) Negative Negative Urobilinogen (test code=U UROB) 0.2 E.U./dL >0.2 Nitrite (test code=UNITR) Negative Negative Leukocyte Esterase (test code=ULEUK) Negative Negative
[2019-08-19] MEDS ORDERED: dexAMETHasone 4 MG/ML VIAL ONE (17:02)
--- NOTE | 2019-08-19 17:38 | EDPHYS ---
Physician Documentation [facility] Name: Sunny Angel Age: 28 yrs Sex: Male : 1990 Arrival Date: 08/19/2019 Time: 16:19 Bed 17 Private MD: ED Physician Wilner Berman HPI: 08/19 16:45 This 28 yrs old Male presents to ER via Ambulatory with complaints of Ear ps1 Pain, Nausea. 16:45 patient had recent oral surgery and now states that he has flu-like symptoms for last 2 ps1 days. Associated with chills, fever, sore throat, fatigue, and ear pain. He states that he feels as though he has pressure or fluid in the ears. He was not prescribed antibiotics or pain medications other than Motrin. He states that it is ineffective. No drainage from the affected gums. . Historical: - Allergies: 16:26 Latex, Natural Rubber; jl7 16:26 SEAFOOD; jl7 - Home Meds: 16:26 None [Active]; jl7 - PMHx: 16:26 Heart Murmur; Hernia; jl7 - PSHx: 16:26 Hernia repair; oral surgery; jl7 - Immunization history:: Adult Immunizations not up to date. - Coronavirus screen:: The patient has NOT traveled to [place] in the past 14 days. Proceed with normal triage process as indicated. - Social history:: Smoking status: Patient reports the use of cigarette tobacco products, smokes one-half pack cigarettes per day. - Ebola Screening: : No symptoms or risks identified at this time. ROS: 16:45 Constitutional: Negative for fever, chills, and weight loss, Eyes: Negative for injury, ps1 pain, redness, and discharge, Cardiovascular: Negative for chest pain, palpitations, and edema, Respiratory: Negative for shortness of breath, cough, wheezing, and pleuritic chest pain, MS/Extremity: Negative for injury and deformity, Skin: Negative for injury, rash, and discoloration, Neuro: Negative for headache, weakness, numbness, tingling, and seizure, Psych: Negative for depression, anxiety, suicide ideation, homicidal ideation, and hallucinations. 16:45 ENT: Positive for dental pain, ear pain. 16:45 Abdomen/GI: Positive for nausea and vomiting. Exam: 16:45 Constitutional: This is a well developed, well nourished patient who is awake, alert, ps1 and in no acute distress. Head/Face: Normocephalic, atraumatic. Eyes: Pupils equal round and reactive to light, extra-ocular motions intact. Lids and lashes normal. Conjunctiva and sclera are non-icteric and not injected. Cardiovascular: Regular rate and rhythm. No gallops, murmurs, or rubs. Normal PMI, no JVD. No pulse deficits. Respiratory: Lungs have equal breath sounds bilaterally, clear to auscultation and percussion. No rales, rhonchi or wheezes noted. No increased work of breathing, no retractions or nasal flaring. Abdomen/GI: Soft, non-tender, with normal bowel sounds. No distension or tympany. No guarding or rebound. No evidence of tenderness throughout. Skin: Warm, dry with normal turgor. Normal color with no rashes, no lesions, and no evidence of cellulitis. MS/ Extremity: Pulses equal, no cyanosis. Neurovascular intact. Full, normal range of motion. Neuro: Awake and alert, GCS 15, oriented to person, place, time, and situation. Cranial nerves II-XII grossly intact. Sensory grossly intact. 16:45 ENT: External ear(s): are unremarkable, Ear canal(s): are normal, TM's: bulging, on the left, erythema, is not appreciated, fluid levels, on the left, Mouth: Gums: pink, swollen, no obvious infection. Appears to be healing well. . Vital Signs: 16:26 BP 124 / 95; Pulse 93; Resp 17 S; Temp 97.6(O); Pulse Ox 97% on R/A; Weight 81.65 kg jl7 (R); Height 5 ft. 5 in. (165.10 cm) (R); Pain 6/10; 17:34 BP 117 / 89; Pulse 89; Resp 17; Temp 97.8; Pulse Ox 97% ; bp 16:26 Body Mass Index 29.95 (81.65 kg, 165.10 cm) jl7 MDM: 16:44 Patient medically screened. ps1 16:45 Differential diagnosis: otitis media, acute otalgia, serotympanum. Data reviewed: vital ps1 signs, nurses notes, lab test result(s), and as a result, I will discharge patient. Counseling: I had a detailed discussion with the patient and/or guardian regarding: the historical points, exam findings, and any diagnostic results supporting the discharge/admit diagnosis, lab results, to return to the emergency department if symptoms worsen or persist or if there are any questions or concerns that arise at home. ED course: 28 y/o M with recent dental surgery presenting with flu like symptoms and acute otalgia. Fluid level in left ear. No erythema. Does not appear to be infected. Flu test ordered. Decadron in ED. Plan for antihistamines, continue anti-inflammatory use, chlorhexidine swish, irrigation of socket. Return precautions given. . 08/19 17:31 Order name: Influenza Screen (A ; Complete Time: 17:35 EDMS Administered Medications: 17:01 Drug: Decadron 10 mg Route: PO; bp 17:35 Follow up: Response: No adverse reaction; Marked relief of symptoms bp Disposition: 08/19/19 17:36 Discharged to Home. Impression: Influenza due to unidentified influenza virus. - Condition is Fair. - Discharge Instructions: Barotitis Media, Influenza, Adult. - Prescriptions for chlorhexidine gluconate 0.12 % Mucous Membrane mouthwash - place 15 milliliter by MUCOUS MEMBRANE route 2 times per day after brushing teeth, swish in mouth for 30 seconds then spit out; 1 bottle. chlorpheniramine maleate 4 mg Oral Tablet - take 1 tablet by ORAL route every 6 hours As needed; 30 tablet. Tramadol 50 mg Oral Tablet - take 1 tablet by ORAL route every 8 hours as needed; 12 tablet. - Medication Reconciliation Form, Thank You Letter, Antibiotic Education, Prescription Opioid Use form. Signatures: Dispatcher [employer] EDMS Chung Braga RN RN jl7 Kenny Lopez RN RN bp Wilner Berman MD MD ps1 Corrections: (The following items were deleted from the chart) 16:50 16:43 Influenza Screen (A \T\ B)+[id number].LAB.BRZ ordered. EDMS EDMS
--- NOTE | 2019-08-19 17:38 | ER ---
Nurse's Notes [facility] Name: Sunny Angel Age: 28 yrs Sex: Male : 1990 Arrival Date: 08/19/2019 Time: 16:19 Bed 17 Private MD: Diagnosis: Influenza due to unidentified influenza virus Presentation: 08/19 16:23 Presenting complaint: Patient states: 2 teeth extracted from left bottom teeth 4 days jl7 ago, 2 days ago left ear pain and, chills, clammy, nausea. Transition of care: patient was not received from another setting of care. Onset of symptoms was August 17, 2019. Risk Assessment: Do you want to hurt yourself or someone else? Patient reports no desire to harm self or others. Initial Sepsis Screen: Does the patient meet any 2 criteria? No. Patient's initial sepsis screen is negative. Does the patient have a suspected source of infection? No. Patient's initial sepsis screen is negative. Care prior to arrival: None. 16:23 Method Of Arrival: Ambulatory [facility] 16:23 Acuity: GILBERT 4 jl7 16:23 Acuity: GILBERT 3 jl7 16:28 Presenting complaint: Patient states: Also states "My tongue doesn't look normal. It jl7 has a coating on it and is off colored." Tongue noted to have Yellow/brownish color, reports no medications were given with teeth extraction. Triage Assessment: 16:26 General: Appears in no apparent distress. uncomfortable, Behavior is cooperative, jl7 anxious. Pain: Complains of pain in left ear Pain currently is 6 out of 10 on a pain scale. EENT: Reports pain in left ear. Historical: - Allergies: 16:26 Latex, Natural Rubber; jl7 16:26 SEAFOOD; jl7 - Home Meds: 16:26 None [Active]; jl7 - PMHx: 16:26 Heart Murmur; Hernia; jl7 - PSHx: 16:26 Hernia repair; oral surgery; jl7 - Immunization history:: Adult Immunizations not up to date. - Coronavirus screen:: The patient has NOT traveled to [place] in the past 14 days. Proceed with normal triage process as indicated. - Social history:: Smoking status: Patient reports the use of cigarette tobacco products, smokes one-half pack cigarettes per day. - Ebola Screening: : No symptoms or risks identified at this time. Screenin:32 Abuse screen: Denies threats or abuse. Denies injuries from another. Nutritional bp screening: No deficits noted. Tuberculosis screening: No symptoms or risk factors identified. Fall Risk None identified. Assessment: 16:31 General: SEE TRIAGE NOTE. bp 17:34 Reassessment: PT D/C HOME AMBULATORY, DX WITH [facility]. bp Vital Signs: 16:26 BP 124 / 95; Pulse 93; Resp 17 S; Temp 97.6(O); Pulse Ox 97% on R/A; Weight 81.65 kg jl7 (R); Height 5 ft. 5 in. (165.10 cm) (R); Pain 6/10; 17:34 BP 117 / 89; Pulse 89; Resp 17; Temp 97.8; Pulse Ox 97% ; bp 16:26 Body Mass Index 29.95 (81.65 kg, 165.10 cm) 7 ED Course: 16:19 Patient arrived in ED. as 16:26 Triage completed. jl7 16:26 Arm band placed on right wrist. jl7 16:31 Wilner Berman MD is Attending Physician. ps1 16:31 Kenny Lopez, RN is Primary Nurse. bp 16:32 Patient has correct armband on for positive identification. Bed in low position. Call bp light in reach. Side rails up X2. 17:34 No provider procedures requiring assistance completed. Patient did not have IV access bp during this emergency room visit. Administered Medications: 17:01 Drug: Decadron 10 mg Route: PO; bp 17:35 Follow up: Response: No adverse reaction; Marked relief of symptoms bp Outcome: 17:34 Discharged to home ambulatory. bp 17:34 Condition: stable 17:34 Discharge instructions given to patient, Instructed on discharge instructions, follow up and referral plans. medication usage, Demonstrated understanding of instructions, follow-up care, medications, Prescriptions given X 3. 17:36 Discharge ordered by . bp 17:36 Patient left the ED. bp Signatures: Toma Mulligan Jahala, RN RN jl7 Kenny Lopez, RN RN bp Wilner Berman MD MD ps1
[2019-08-21 09:01] VITALS: O2SAT 97
[2019-08-21 09:02] VITALS: BP 117/89; TEMP 97.8
== END 2019-08-19 17:36 | disposition home or self-care (01) ==
LOC: ER 16:17
DX: J11.89 Influenza due to unidentified influenza virus with other manifestations (principal); Z91.013 Allergy to seafood; Z91.040 Latex allergy status; F17.210 Nicotine dependence, cigarettes, uncomplicated
CPT/HCPCS: 87804; 99283

== ENCOUNTER 2019-10-04 22:54 | Emergency (ER) | payer OTHER ==
--- OUTSIDE RECORDS SUMMARY | 2019-10-04 22:57 | XMS REPORT ---
:1990 [facility] Address [address] [place], [place] [address]jessica Santana [address] [place] [address] Care Team Providers Name Role Phone BLANCA [...] 06/12/20177:01 PMDictated By: ENZO CABRERA.Date: 06/12/2017 19:07 [facility] 2017-06-12 18:51:00 Test Item Value [...] EGFR if Non- >60 mL/min/1.73m\S\2 Estimated Glomerular Icelandic (test Filtration Rate (eGFR) code=EGFRNA) Reference Intervals [...] Gap (test code=GAP) 11 CBC WITH AUTO [id number] 18:02:00 Test Item Value Reference Range Comments [...] (test code=NRBC_AUTO) 0 /100WBC 0-2 URINALYSIS WITHOUT [id number] 17:32:00 Test Item Value Reference Range Comments Color (test code=UCOLR) Yellow Lt. Yellow Clarity (test code=UCLAR) Clear Glucose (test code=UGLUC) Negative Negative Bilirubin (test code=UBILI) Negative Negative Ketones (test code=UKET) Negative Negative Specific [place] (test code=USPGR) 1.015 1.005-1.030 Blood (test code=UBLD) Negative Negative PH (test code=UPH) 7.0 4.5-8.0 Protein (test code=UPROT) Negative Negative Urobilinogen (test code=U UROB) 0.2 E.U./dL >0.2 Nitrite (test code=UNITR) Negative Negative Leukocyte Esterase (test code=ULEUK) Negative Negative
--- OUTSIDE RECORDS SUMMARY | 2019-10-04 22:57 | XMS REPORT | Summary of Care ---
:1990 Author Organization [facility] Address [address] [place] [address] Care Team Providers Name Role Phone Pcp, Patient Does Not Have A Primary Care Provider Berman Eladio Mckenna Insurance [employer] Reason for Referral MRI/CAT Scan (Routine) Status Reason Specialty Diagnoses / Referred By Referred To Procedures Contact Contact New Request Diagnostic Diagnoses Lower abdominal pain Wilner Berman, Radiology Procedures CT ABDOMEN PELVIS W CONTRAST DO [address] [facility]. [address] [place] [address] Reason for Visit Reason Comments Abdominal Pain Auth/Cert Status Reason Specialty Diagnoses / Referred By Referred To Procedures Contact Contact [facility] [address] [facility] [place] [address] Encounter Details Date Type Department Care Team Description 07/27/2019 Emergency [facility] Wilner Berman DO Lower abdominal pain (Primary Dx); Department [address] [facility]. Enteritis [address] [place] [address] [address] [place] [address] [place], [place] [address] Allergies Active Allergy Reactions Severity Noted Date Comments Latex Rash 10/17/2017 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 Pt reports he can eat cooked shrimp. documented as of this encounter (statuses as of 07/27/2019) Medications Medication Sig Dispensed Refills Start End Status Date Date varenicline (CHANTIX) Take one 0.5mg 1 Package 0 10/18/19 Active 0.5 mg (11)- 1 mg (42) tab by mouth 18 tablet once daily for 3 days, then one 0.5mg tab twice daily for 4 days, then one 1mg tab twice daily. varenicline (CHANTIX Take 1 tablet 70 tablet 0 12/06/19 Active CONTINUING MONTH JENNY) by mouth 2 18 1 mg tablet (two) times daily. cyclobenzaprine 5 mg Take 1 tablet 30 tablet 0 11/24/19 Active tablet by mouth 3 18 (three) times daily. metoclopramide HCl 10 Take 1 tablet 20 tablet 0 05/26/20 Active mg tabletIndications: by mouth every 19 Lower abdominal pain 6 (six) hours as needed for Nausea and Vomiting (N/V). sucralfate 1 gram Take 1 tablet 30 tablet 0 07/27/19 Active tabletIndications: by mouth 20 Lower abdominal pain, before meals Enteritis and at bedtime. dicyclomine (BENTYL) Take 1 capsule 30 capsule 0 07/27/19 Active 10 mg by mouth every 20 capsuleIndications: 8 (eight) Lower abdominal pain, hours as Enteritis needed for Abdominal pain. ondansetron 4 mg Take 1 tablet 20 tablet 0 07/27/19 Active disintegrating by mouth every 20 tabletIndications: 8 (eight) Lower abdominal pain, hours as Enteritis needed for Nausea and Vomiting (N/V). omeprazole 20 mg Take 1 capsule 30 capsule 0 07/27/19 Active capsuleIndications: by mouth daily 20 020 Lower abdominal pain, for 30 days. Enteritis methylPREDNISolone Take by mouth 21 Each 0 07/27/19 Active (MEDROL, JENNY,) 4 mg SEE-INSTRUCTIO 20 tabletsIndications: NS. follow Lower abdominal pain, package Enteritis directions dicyclomine (BENTYL) Take 1 tablet 20 tablet 0 05/26/20 Discontinued 20 mg by mouth every 19 020 (Duplicate) tabletIndications: 6 (six) hours Lower abdominal pain as needed for Abdominal pain. documented as of this encounter (statuses as of 07/27/2019) Active Problems No known active problemsdocumented as of this encounter (statuses as of 2019) Social History Tobacco Use Types Packs/Day Years Used Date Current Every Day Smoker 0.75 16 Started: 10/17/2002 Alcohol Use Drinks/Week oz/Week Comments No Sex Assigned at Date Recorded Not on file Job Start Date Occupation Industry Not on file Not on file Not on file Travel History Travel Start Travel End No recent travel history available. documented as of this encounter Last Filed Vital Signs Vital Sign Reading Time Taken Comments Blood Pressure 123/90 07/27/2019 9:49 PM [facility] Pulse 72 07/27/2019 9:49 PM [facility] Temperature 36.6 C (97.8 F) 07/27/2019 9:49 PM [facility] Respiratory Rate 18 07/27/2019 9:49 PM [facility] Oxygen Saturation 95% 07/27/2019 9:49 PM [facility] Inhaled Oxygen Concentration - - Weight 81.6 kg (180 lb) 07/27/2019 6:55 PM [facility] Height 162.6 cm (5' 4") 07/27/2019 6:55 PM [facility] Body Mass Index 30.9 07/27/2019 6:55 PM [facility] documented in this encounter Discharge Instructions Wilner Medina DO - 07/27/2019 DIAGNOSIS Diagnoses that have been ruled out: None Diagnoses that are still under consideration: None Final diagnoses: Lower abdominal pain Enteritis NO LIFE-THREATENING FINDINGS ON TODAY'S EXAM. PROCEDURES IN THE ER TODAY: Orders Placed This Encounter Procedures CT ABDOMEN PELVIS W CONTRAST CBC WITH DIFF COMP. METABOLIC PANEL (11715) LIPASE CBC WITH DIFFERENTIAL MEDICATIONS ADMINISTERED IN THE ER TODAY AND DISCHARGE MEDICATIONS: Orders Placed This Encounter Medications dicyclomine (BENTYL) capsule 10 mg iohexol (OMNIPAQUE 350 BULK-100 mL) injection 120 mL sucralfate 1 gram tablet dicyclomine (BENTYL) 10 mg capsule ondansetron 4 mg disintegrating tablet omeprazole 20 mg capsule methylPREDNISolone (MEDROL, JENNY,) 4 mg tablets FOLLOW-UP RECOMMENDATIONS: RECOMMEND FOLLOW-UP WITH A PRIMARY CARE PROVIDER OR SPECIALIST IN 2-5 DAYS, ESPECIALLY IF NO IMPROVEMENT IN SYMPTOMS. MAY FOLLOW-UP WITH A PROVIDER OF YOUR CHOICE, SUCH : 1. A PHYSICIAN OF YOUR CHOICE 2. [facility], . LOCATIONS IN [facility] 3. [facility], [address], [place]; [phone] OR, IF YOU WISH TO FOLLOW-UP WITHIN THE [facility], MAY TRY THESE OPTIONS (CLINIC APPOINTMENTS AVAILABLE ON [id number] BASIS): 1. SCHEDULE AN APPOINTMENT ONLINE AT WWW.[facility] 2. OR CALL THE [facility] ACCESS CENTER AT OR 3. OR CALL YOUR [facility] PHYSICIAN'S OFFICE DIRECTLY IF YOU ARE ALREADY AN ESTABLISHED [facility] PATIENT. RETURN TO ER FOR WORSENING OF SYMPTOMS. AttachmentsThe following attachments cannot be sent through Care Everywhere.Gastroenteritis, Noninfectious (Bermudian)documented in this encounter Plan of Treatment Health Maintenance Due Date Last Done Comments VARICELLA VACCINES (1 of 2 - 2-dose childhood series) 1990 PNEUMOCOCCAL 0-64 YEARS COMBINED SERIES (1 of 1 - 09/26/1995 PPSV23) DTaP,Tdap,and Td Vaccines (1 - Tdap) 2000 INFLUENZA VACCINE (#1) 2019 documented as of this encounter Procedures Procedure Name Priority Date/Time Associated Comments Diagnosis CT ABDOMEN PELVIS W Routine 07/27/2019 8:46 Lower abdominal Results for this CONTRAST PM [facility] pain procedure are in the results section. CBC WITH DIFFERENTIAL STAT 07/27/2019 7:34 Lower abdominal Results for this PM [facility] pain procedure are in the results section. CBC WITH DIFFERENTIAL STAT 07/27/2019 7:34 Lower abdominal Results for this PM [facility] pain procedure are in the results section. COMP. METABOLIC PANEL STAT 07/27/2019 7:34 Lower abdominal Results for this (70325) PM [facility] pain procedure are in the results section. LIPASE STAT 07/27/2019 7:34 Lower abdominal Results for this PM [facility] pain procedure are in the results section. CONSENT/REFUSAL FOR Routine 07/27/2019 6:45 DIAGNOSIS AND PM [facility] TREATMENT documented in this encounter Results CT ABDOMEN PELVIS W CONTRAST (07/27/2019 8:46 PM [facility]LASTIC [facility]WER) Specimen Impressions Performed At Impression: PACS/VR/DOSE 1. Fluid-filled, nondilated distal small bowel loops with mucosal fold thickening, suggestive of enteritis. 2. Normal appendix. No free air or free fluid. RL: [id number] AFC: [id number] End of Report Narrative Performed At Exam: CT Abdomen and Pelvis With Contrast, 07/27/2019 7:30 PM. PACS/VR/DOSE Ordering Physician: WILNER BERMAN. History: Abdominal pain. Technique: CT abdomen and pelvis was obtained with intravenous contrast. CT was performed according to ALARA (As Low As Reasonably Achievable). Comparison: None. Findings: CT Abdomen: Lung bases are clear. Heart size is normal. Osseous structures are unremarkable. Gallbladder is contracted. Calcification in the liver may be related to prior granulomatous disease. Minute hypodense hepatic lesions are noted, measuring less than 5 mm and too small to characterize. Spleen, pancreas, and adrenal glands are normal. There is no pancreatic or biliary duct dilatation. Kidneys are symmetric in size, enhancement, and contrast excretion. There is no hydronephrosis or hydroureter. There is no free air or free fluid. There is no abdominal adenopathy. Stomach is unremarkable. There is mild gaseous distention of small bowel loops. Fluid-filled, nondilated small bowel loops are noted. There is distal small bowel mucosal fold thickening, involving the terminal ileum. There is no evidence of bowel obstruction. Appendix is normal. CT Pelvis: Pelvic small bowel loops are unremarkable. Urinary bladder is unremarkable. Prostate and seminal vesicles are not enlarged. There is no pelvic free fluid. There is no pelvic adenopathy. Osseous structures are unremarkable. Procedure Note [facility], Radiant Results Inft User - 07/27/2019 8:59 PM PLASTIC SEWER Exam: CT Abdomen and Pelvis With Contrast, 07/27/2019 7:30 PM. Ordering Physician: WILNER BERMAN. History: Abdominal pain. Technique: CT abdomen and pelvis was obtained with intravenous contrast. CT was performed according to ALARA (As Low As Reasonably Achievable). Comparison: None. Findings: CT Abdomen: Lung bases are clear. Heart size is normal. Osseous structures are unremarkable. Gallbladder is contracted. Calcification in the liver may be related to prior granulomatous disease. Minute hypodense hepatic lesions are noted, measuring less than 5 mm and too small to characterize. Spleen, pancreas, and adrenal glands are normal. There is no pancreatic or biliary duct dilatation. Kidneys are symmetric in size, enhancement, and contrast excretion. There is no hydronephrosis or hydroureter. There is no free air or free fluid. There is no abdominal adenopathy. Stomach is unremarkable. There is mild gaseous distention of small bowel loops. Fluid-filled, nondilated small bowel loops are noted. There is distal small bowel mucosal fold thickening, involving the terminal ileum. There is no evidence of bowel obstruction. Appendix is normal. CT Pelvis: Pelvic small bowel loops are unremarkable. Urinary bladder is unremarkable. Prostate and seminal vesicles are not enlarged. There is no pelvic free fluid. There is no pelvic adenopathy. Osseous structures are unremarkable. IMPRESSION Impression: 1. Fluid-filled, nondilated distal small bowel loops with mucosal fold thickening, suggestive of enteritis. 2. Normal appendix. No free air or free fluid. RL: [id number] AFC: [id number] End of Report Performing Organization Address City/State/Zipcode Phone Number PACS/VR/DOSE CBC WITH DIFFERENTIAL (07/27/2019 7:34 PM P[facility]WER) WBC 8.47 4.20 - 10.70 [facility] 10*3/L [facility] RBC 5.32 4.26 - 5.52 [facility] 10*6/L [facility] HGB 16.7 (H) 12.2 - 16.4 [facility] g/dL [facility] HCT 44.8 38.4 - 49.3 % [facility] MCV 84.2 81.7 - 95.6 fL [facility] MCH 31.4 26.1 - 32.7 pg [facility] MCHC 37.3 (H) 31.2 - 35.0 [facility] g/dL [facility] RDW-SD 35.8 (L) 38.5 - 51.6 fL [facility] RDW-CV 11.8 (L) 12.1 - 15.4 % [facility] PLT 232 150 - 328 [facility] 10*3/L [facility] MPV 10.2 9.8 - 13.0 fL [facility] NRBC/100 WBC 0.0 0.0 - 10.0 /100 [facility] WBCs [facility] NRBC x10^3 <0.01 10*3/L [facility] GRAN MAT (NEUT) % 59.2 % [facility] IMM GRAN % 0.20 % [facility] LYMPH % 31.1 % [facility] MONO % 8.5 % [facility] EOS % 0.8 % [facility] BASO % 0.2 % [facility] GRAN MAT x10^3(ANC) 5.01 1.99 - 6.95 [facility] 10*3/uL [facility] IMM GRAN x10^3 <0.03 0.00 - 0.06 [facility] 10*3/uL [facility] LYMPH x10^3 2.63 1.09 - 3.23 [facility] 10*3/uL [facility] MONO x10^3 0.72 0.36 - 1.02 [facility] 10*3/uL [facility] EOS x10^3 0.07 0.06 - 0.53 [facility] 103/uL [facility] BASO x10^3 <0.03 0.01 - 0.09 [place] [address]*3/uL [facility] Specimen Blood - ARM, RIGHT Performing Organization Address [facility] Phone Number [facility] CLIA: [id number], [address] [place] [address] LIPASE (07/27/2019 7:34 PM PLASTIC SEWER) LIPASE 103 0 - 220 U/L [facility] Specimen Blood - ARM, RIGHT Performing Organization Address [facility] Phone Number [facility] CLIA: [id number], [address] [place] [address] COMP. METABOLIC PANEL (10899) (07/27/2019 7:34 PM PLASTIC SEWER) NA 140 135 - 145 [facility] mmol/L [facility] K 3.8 3.5 - 5.0 [facility] mmol/L [facility] CL 107 98 - 108 mmol/L [facility] CO2 TOTAL 24 23 - 31 mmol/L [facility] AGAP 9 2 - 16 [facility] BUN 14 7 - 23 mg/dL [facility] GLUCOSE 119 (H) 70 - 110 mg/dL [facility] CREATININE 1.03 0.60 - 1.25 [facility] mg/dL [facility] TOTAL BILI 0.2 0.1 - 1.1 mg/dL [facility] CALCIUM 9.6 8.6 - 10.6 [facility] mg/dL HOSPITAL [facility]ATORY T PROTEIN 7.8 6.3 - 8.2 g/dL [facility] ALBUMIN 4.9 3.5 - 5.0 g/dL [facility] ALK PHOS 69 34 - 122 U/L [facility] ALTv 47 5 - 50 U/L [facility] AST(SGOT) 30 13 - 40 U/L [facility] eGFR Calculation 85.4 mL/min/1.73m2 [facility] ([facility] [place]) eGFR Calculation 103.5 mL/min/1.73m2 [facility] () [facility] Specimen Blood - ARM, RIGHT Narrative Performed At Association of Glomerular Filtration Rate (GFR) [facility] and Staging of Kidney Disease* + + +- + | GFR (mL/min/1.73 m2) | With Kidney Damage | Without Kidney Damage + + +- + | >90 | Stage one | Normal + + +- + | 60-89 | Stage two | Decreased GFR + + +- + | 30-59 | Stage three | Stage three + + +- + | 15-29 | Stage four | Stage four + + +- + | <15 (or dialysis) | Stage five | Stage five + + +- + *Each stage assumes the associated GFR level has been in effect for at least three months. Stages 1 to 5, with or without kidney disease, indicate chronic kidney disease. Notes: Determination of stages one and two (with eGFR >59mL/min/1.73 m2) requires estimation of kidney damage for at least three months as defined by structural or functional abnormalities of the kidney, manifested by either: Pathological abnormalities or Markers of kidney damage (including abnormalities in the composition of the blood or urine or abnormalities in imaging tests). Performing Organization Address City/State/Zipcode Phone Number [facility] CLIA: [id number], [address] [place] [address] documented in this encounter Visit Diagnoses Diagnosis Lower abdominal pain - Primary Abdominal pain, other specified site Enteritis Other and unspecified noninfectious gastroenteritis and colitis documented in this encounter Administered Medications Medication Order MAR Action Action Date Dose Rate Site dicyclomine (BENTYL) capsule 10 mg Given 07/27/2019 7:38 PM [facility]WER 10 mg 10 mg, Oral, QID, First dose on 07/27/19 at 2000, Until Discontinued, Routine Medication Order MAR Action Action Date Dose Rate Site iohexol (OMNIPAQUE 350 BULK-100 Given 07/27/2019 8:41 PM P[facility]IC [facility]WER 120 mL mL) injection 120 mL 120 mL, Intravenous, ONCE, 1 dose, 07/27/19 at 2100, Routine documented in this encounter Insurance Payer Benefit Plan / Subscriber ID Effective Phone Address Type Group Dates [facility] xxxxxxxxx 2017-Mary CHÁVEZ Medicaid HEALTH [employer] [id number] MANAGED MEDICAID [place], [place] MEDICAID [phone] (Nov[place]) [place] [address] documented as of this encounter
--- OUTSIDE RECORDS SUMMARY | 2019-10-04 22:58 | XMS REPORT | Summary of Care ---
:1990 Author Organization [facility] Address [address] [place] [address] Care Team Providers Name Role Phone Pcp, Patient Does Not Have A Primary Care Provider Berman Eladio Mckenna Insurance o Reason for Referral Radiology Services (STAT) Status Reason Specialty Diagnoses / Referred By Referred To Procedures Contact Contact New Request Diagnostic Diagnoses Abdominal pain in male [place], Radiology Procedures XR KUB Folusho F, [employer]ESSIONAL [employer] [address] [facility] [address] [place] [address] Reason for Visit Reason Comments Abdominal Pain Auth/Cert Status Reason Specialty Diagnoses / Referred By Referred To Procedures Contact Contact Emergency Medicine Diagnoses ABD PAIN [facility] [address] [place] [address] [place] [address] Encounter Details Date Type Department Care Team Description 09/19/2019 Emergency [facility] [place], Folusho Abdominal pain in male (Primary Dx); Department F, [employer]ESSION[employer] Constipation, unspecified constipation type [address] [place] [address] [address] [place] [address] [address] [place] [address] Allergies Active Allergy Reactions Severity Noted Date Comments Latex Rash 10/17/2017 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 Pt reports he can eat cooked shrimp. documented as of this encounter (statuses as of 09/19/2019) Medications Medication Sig Dispensed Refills Start Date End Date Status varenicline (CHANTIX) Take one 0.5mg 1 Package 0 10/17/2017 Active 0.5 mg (11)- 1 mg (42) tab by mouth tablet once daily for 3 days, then one 0.5mg tab twice daily for 4 days, then one 1mg tab twice daily. varenicline (CHANTIX Take 1 tablet by 70 tablet 0 12/05/2017 Active CONTINUING MONTH JENNY) 1 mouth 2 (two) mg tablet times daily. cyclobenzaprine 5 mg Take 1 tablet by 30 tablet 0 11/23/2017 Active tablet mouth 3 (three) times daily. metoclopramide HCl 10 mg Take 1 tablet by 20 tablet 0 05/26/2019 Active tabletIndications: Lower mouth every 6 abdominal pain (six) hours as needed for Nausea and Vomiting (N/V). sucralfate 1 gram Take 1 tablet by 30 tablet 0 07/27/2019 Active tabletIndications: Lower mouth before abdominal pain, meals and at Enteritis bedtime. dicyclomine (BENTYL) 10 Take 1 capsule 30 capsule 0 07/27/2019 Active mg capsuleIndications: by mouth every 8 Lower abdominal pain, (eight) hours as Enteritis needed for Abdominal pain. ondansetron 4 mg Take 1 tablet by 20 tablet 0 07/27/2019 Active disintegrating mouth every 8 tabletIndications: Lower (eight) hours as abdominal pain, needed for Enteritis Nausea and Vomiting (N/V). methylPREDNISolone Take by mouth 21 Each 0 07/27/2019 Active (MEDROL, JENNY,) 4 mg SEE-INSTRUCTIONS tabletsIndications: . follow package Lower abdominal pain, directions Enteritis docusate 100 mg Take 1 capsule 7 capsule 0 09/19/2019 Active capsuleIndications: by mouth daily 0 Abdominal pain in male, for 7 days. Constipation, unspecified constipation type dicyclomine 20 mg Take 1 tablet by 28 tablet 0 09/19/2019 Active tabletIndications: mouth 4 (four) 0 Abdominal pain in male, times daily for Constipation, 7 days. unspecified constipation type polyethlene glycol Take 17 g by 68 g 0 09/19/2019 Active powder mouth daily for 0 packetIndications: 4 days. 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 Abdominal pain in male R10.9 789.00 2. Constipation, unspecified constipation type K59.00 564.00 NO LIFE-THREATENING FINDINGS ON TODAY'S EXAM. YOUR PRESCRIPTIONS : Medication List START taking these medications docusate 100 mg capsule Commonly known as: COLACE Take 1 capsule by mouth daily for 7 days. polyethlene glycol powder packet Commonly known as: MIRALAX Take 17 g by mouth daily for 4 days. CHANGE how you take these medications * dicyclomine 10 mg capsule Commonly known as: BENTYL Take 1 capsule by mouth every 8 (eight) hours as needed for Abdominal pain. What changed: Another medication with the same name was added. Make sure you understand how and when to take each. * dicyclomine 20 mg tablet Commonly known as: BENTYL Take 1 tablet by mouth 4 (four) times daily for 7 days. What changed: You were already taking a medication with the same name, and this prescription was added. Make sure you understand how and when to take each. * This list has 2 medication(s) that are the same as other medications prescribed for you. Read thedirections carefully, and ask your doctor or other care provider to review them with you. ASK your doctor about these medications cyclobenzaprine 5 mg tablet Commonly known as: FLEXERIL Take 1 tablet by mouth 3 (three) times daily. methylPREDNISolone 4 mg tablets Commonly known as: MEDROL (JENNY) Take by mouth SEE-INSTRUCTIONS. follow package directions metoclopramide HCl 10 mg tablet Commonly known as: REGLAN Take 1 tablet by mouth every 6 (six) hours as needed for Nausea and Vomiting (N/ V). ondansetron 4 mg disintegrating tablet Commonly known as: ZOFRAN-ODT Take 1 tablet by mouth every 8 (eight) hours as needed for Nausea and Vomiting ( N/V). sucralfate 1 gram tablet Commonly known as: CARAFATE Take 1 tablet by mouth before meals and at bedtime. * varenicline 0.5 mg (11)- 1 mg (42) tablet Commonly known as: Chantix Take one 0.5mg tab by mouth once daily for 3 days, then one 0.5mg tab twice daily for 4 days, then one 1mg tab twice daily. * varenicline 1 mg tablet Commonly known as: CHANTIX CONTINUING MONTH JENNY Take 1 tablet by mouth 2 (two) times daily. * This list has 2 medication(s) that are the same as other medications prescribed for you. Read thedirections carefully, and ask your doctor or other care provider to review them with you. Where to Get Your Medications You can get these medications from any pharmacy Bring a paper prescription for each of these medications dicyclomine 20 mg tablet docusate 100 mg capsule polyethlene glycol powder packet ER precautions and follow up : 1. Return to ER if your symptoms should worsen or fail to improve within 72 hours. 2. The care provided in the emergency room was for acute problems only. 3. You should follow up with your primary care provider within 72 hours. 4. Fill and take all your medications as prescribed. 5. Make sure you are staying adequately hydrated. Steve attencion immediatamente si usted tiene los sitomas sigue, vuelve peor o si hay sitomas nuevas o para cualquiera preoccupacion incluyendo dolor del pecho , falta aire, se siente debile, mas fievre, mas dolor, nausea, vomitando, sangrando que no es normal, confusion, baja or pierdas conciencia. FOLLOW-UP RECOMMENDATIONS: RECOMMEND FOLLOW-UP WITH A PRIMARY CARE PROVIDER OR SPECIALIST IN 2-5 DAYS, ESPECIALLY IF NO IMPROVEMENT IN SYMPTOMS. MAY FOLLOW-UP WITH A PROVIDER OF YOUR CHOICE, SUCH : 1. A PHYSICIAN OF YOUR CHOICE 2. [facility], . LOCATIONS IN [facility] 3. [facility], [address] [place] [address]; OR, IF YOU WISH TO FOLLOW-UP WITHIN THE [facility], MAY TRY THESE OPTIONS (CLINIC APPOINTMENTS AVAILABLE ON IRVC-AK-AYDU BASIS): 1. SCHEDULE AN APPOINTMENT ONLINE AT WWW[facility] 2. OR CALL THE [facility] AT OR 3. OR CALL YOUR [facility] PHYSICIAN'S OFFICE DIRECTLY IF YOU ARE ALREADY AN ESTABLISHED [facility] PATIENT. AttachmentsThe following attachments cannot be sent through Care Everywhere.Constipation, Treating (Vincentian)Dicyclomine tablets or capsules ( Vincentian)documented in this encounter Plan of Treatment Name Type Priority Associated Diagnoses Date/Time Urine Culture LAB STAT Abdominal pain in male 09/19/2019 7:13 PM CDT XR KUB IMAGING STAT Abdominal pain in male 09/19/2019 7:34 PM CDT Name Type Priority Associated Diagnoses Order Schedule Urine Culture LAB CORETTA Abdominal pain in male CORETTA for 1 Occurrences starting 09/19/2019 until 09/19/2019 Health Maintenance Due Date Last Done Comments VARICELLA VACCINES (1 of 2 - 2-dose childhood series) 1990 PNEUMOCOCCAL 0-64 YEARS COMBINED SERIES (1 of 1 - 09/26/1995 PPSV23) DTaP,Tdap,and Td Vaccines (1 - Tdap) 2000 INFLUENZA VACCINE (#1) 2019 documented as of this encounter Procedures Procedure Name Priority Date/Time Associated Diagnosis Comments XR KUB STAT 09/19/2019 7:34 PM CDT Abdominal pain in male Procedure Note - [facility], Radiant Results Inft User - 09/19/2019 8:00 PM CDT EXAM: XR KUB COMPARISON: None available. HISTORY: abdominal pain. Lower abdominal pain FINDINGS: The bowel gas pattern is nonobstructive and without localizing findings. No abnormal calcifications or radiopaque stones are identified. IMPRESSION No radiographic evidence of acute abdominopelvic abnormality. No bowel obstruction. Preliminary Report Dictated by Resident: Kalani Vázquezwuagwu CBC WITH DIFFERENTIAL STAT 09/19/2019 7:13 PM Abdominal pain in Results for this CDT male procedure are in the results section. URINALYSIS STAT 09/19/2019 7:13 PM Abdominal pain in Results for this CDT male procedure are in the results section. CBC WITH DIFFERENTIAL Routine 09/19/2019 7:13 PM Abdominal pain in Results for this CDT male procedure are in the results section. COMP. METABOLIC PANEL STAT 09/19/2019 7:13 PM Abdominal pain in Results for this (74884) CDT male procedure are in the results section. NOTICE OF PRIVACY Routine 09/19/2019 5:17 PM PRACTICES CDT documented in this encounter Results CBC WITH DIFFERENTIAL (09/19/2019 7:13 PM CDT) WBC 8.30 4.20 - 10.70 [facility] 10*3/L [facility] RBC 4.98 4.26 - 5.52 [facility] 10*6/L [facility] HGB 15.4 12.2 - 16.4 [facility] g/dL [facility] HCT 43.3 38.4 - 49.3 % [facility] MCV 86.9 81.7 - 95.6 fL [facility] MCH 30.9 26.1 - 32.7 pg [facility] MCHC 35.6 (H) 31.2 - 35.0 [facility] g/dL [facility] RDW-SD 38.2 (L) 38.5 - 51.6 fL [facility] RDW-CV 12.0 (L) 12.1 - 15.4 % [facility] PLT 235 150 - 328 [facility] 10*3/L [facility] MPV 10.0 9.8 - 13.0 fL [facility] NRBC/100 WBC 0.0 0.0 - 10.0 /100 [facility] WBCs [facility] NRBC x10^3 <0.01 10*3/L [facility] GRAN MAT (NEUT) % 60.6 % [facility] IMM GRAN % 0.40 % [facility] LYMPH % 31.9 % [facility] MONO % 6.1 % [facility] EOS % 0.8 % [facility] BASO % 0.2 % [facility] GRAN MAT x10^3(ANC) 5.02 1.99 - 6.95 [facility] 10*3/uL [facility] IMM GRAN x10^3 0.03 0.00 - 0.06 [facility] 10*3/uL [facility] LYMPH x10^3 2.65 1.09 - 3.23 [facility] 10*3/uL [facility] MONO x10^3 0.51 0.36 - 1.02 [facility] 10*3/uL [facility] EOS x10^3 0.07 0.06 - 0.53 [facility] 10*3/uL [facility] BASO x10^3 <0.03 0.01 - 0.09 [facility] 103/uL [facility] Specimen Blood - VENOUS Performing Organization Address City/State/Zipcode Phone Number [facility] CLIA: [id number], [address] [place], [place] [id number] [phone] COMP. METABOLIC PANEL (78607) (09/19/2019 7:13 PM CDT) NA 141 135 - 145 mmol/L [facility] K 3.9 3.5 - 5.0 mmol/L [facility] CL 106 98 - 108 mmol/L [facility] CO2 TOTAL 25 23 - 31 mmol/L [facility] AGAP 10 2 - 16 [facility] BUN 14 7 - 23 mg/dL [facility] GLUCOSE 101 70 - 110 mg/dL [facility] CREATININE 1.03 0.60 - 1.25 [facility] mg/dL HOSPITAL [facility] TOTAL BILI 0.3 0.1 - 1.1 mg/dL [facility] CALCIUM 9.9 8.6 - 10.6 mg/dL [facility] T PROTEIN 6.8 6.3 - 8.2 g/dL [facility] ALBUMIN 4.7 3.5 - 5.0 g/dL [facility] ALK PHOS 63 34 - 122 U/L [facility] ALTv 20 5 - 50 U/L [facility] AST(SGOT) 20 13 - 40 U/L [facility] eGFR Calculation 85.4 mL/min/1.73m2 [facility] (Non-) [facility] eGFR Calculation 103.5 mL/min/1.73m2 [facility] () [facility] Specimen Blood - VENOUS Narrative Performed At Association of Glomerular Filtration Rate (GFR) [facility] and Staging of Kidney Disease* [...] tests). Performing Organization Address City/State/Zipcode Phone Number [facility] CLIA: [id number], [address] [place], [place] [id number] [address] Urinalysis (09/19/2019 7:13 PM CDT) APPEARANCE Clear Clear [facility] COLOR Straw (A) Yellow [facility] PH 6.0 4.8 - 8.0 [facility] SP GRAVITY 1.008 1.003 - 1.030 [facility] GLU U QUAL Normal Normal [facility] BLOOD Negative Negative [facility] KETONES Negative Negative [facility] PROTEIN Negative Negative [facility] UROBILIN Normal Normal [facility] BILIRUBIN Negative Negative [facility] NITRITE Negative Negative [facility] LEUK EMMANUEL Negative Negative [facility] RBC/HPF 1 0 - 3 HPF [facility] WBC/HPF <1 0 - 5 HPF [facility] BACTERIA Negative Negative [facility] MUCOUS Slight (A) Negative LPF [facility] Specimen Urine - URINE, CLEAN CATCH Performing Organization Address City/State/Zipcode Phone Number [facility] CLIA: [id number], [address] [place] [address] documented in this encounter Visit Diagnoses Diagnosis Abdominal pain in male - Primary Constipation, unspecified constipation type documented in this encounter Administered Medications Medication Order MAR Action Action Date Dose Rate Site dicyclomine (BENTYL) Given 09/19/2019 8:14 PM 20 mg Right Deltoid-IM injection 20 mg CDT 20 mg, Intramuscular, ONCE NOW, 1 dose, Sun09/19/19 at 2115, Routine morpHINE injection 4 mg Given 09/19/2019 8:15 PM CDT 4 mg 4 mg, Slow IV Push, ONCE, 1 dose, Sun09/19/19 at 2115, STAT NaCl 0.9% (NS) bolus infusion New Bag 09/19/2019 7:13 PM CDT 1,000 mL 999 mL/hr 1,000 mL at 999 mL/hr, 1,000 mL, IV Infusion, ONCE, 1 dose, Sun09/19/19 at 1800, CORETTA ondansetron (ZOFRAN (PF)) injection 4 mg Given 09/19/2019 8:15 PM CDT 4 mg 4 mg, Slow IV Push, ONCE, 1 dose, Sun09/19/19 at 2115, CORETTA documented in this encounter Insurance Payer Benefit Plan / Subscriber ID Effective Phone Address Type Group Dates [facility] xxxxxxxxx 2017-[address] Medicaid HEALTH CHOICE - HEALTH CHOICE [id number] MANAGED MEDICAID [place], [place] MEDICA[place] [id number] ([place]) [place] [address] documented as of this encounter"
--- OUTSIDE RECORDS SUMMARY | 2019-10-04 22:58 | XMS REPORT | Summary of Care ---
:1990 Author Organization [facility] - Health Address [address] [place] [address] Care Team Providers Name Role Phone Pcp, Patient Does Not Have A Primary Care Provider Berman Eladio Andres Insurance Hmo Encounter Details Date Type Department Care Team Description 09/19/2019 Orders Only [facility] Doctor Unassigned, No [address] [facility] [place] [address] [address] [place] [address] Allergies Active Allergy Reactions Severity Noted Date [...] follow package Lower abdominal pain, directions Enteritis documented as of this encounter (statuses as [...] of this encounter Last Filed Vital Signs Not on filedocumented in this encounter Plan of Treatment Health Maintenance Due Date Last Done Comments VARICELLA VACCINES (1 of 2 - 2-dose childhood series) 1990 PNEUMOCOCCAL 0-64 YEARS COMBINED SERIES (1 of 1 - 09/26/1995 PPSV23) DTaP,Tdap,and Td Vaccines (1 - Tdap) 2000 INFLUENZA VACCINE (#1) 2019 documented as of this encounter Procedures Procedure Name Priority Date/Time Associated Diagnosis Comments CONSENT/REFUSAL FOR Routine 09/19/2019 5:17 PM CDT DIAGNOSIS AND TREATMENT documented in this encounter Results Not on filedocumented in this encounter Insurance Payer Benefit Plan / Subscriber ID Effective Phone Address Type Group Dates [facility] xxxxxxxxx 2017-Presrebecca [address] Medicaid HEALTH CHOICE - [place] [id number] MANAGED MEDICAID [place], [place] [phone] documented as of this encounter
--- NOTE | 2019-10-04 23:23 | ER ---
Nurse's Notes [facility] Name: Sunny Angel Age: 29 yrs Sex: Male : 1990 Arrival Date: 10/04/2019 Time: 22:57 Bed 18 Private MD: Diagnosis: Lower abdominal pain, unspecified;Chronic pain, not elsewhere classified Presentation: 10/03 23:05 Chief complaint: Patient states: yunior been having abdominal pain for 2.5 months, i was mg2 here before twice and i went to see GI and set an appointment for colonoscopy but all the clinics are close now. my boss is concerned that Im in pain while I am working and i took off Sunday because of intolerable pain. i just need some pain medication to get me by so I can still continue working,. Coronavirus screen: Patient denies fever greater than 100.4F, cough, shortness of breath, or difficulty breathing. Proceed with normal triage process. Ebola Screen: No symptoms or risks identified at this time. Initial Sepsis Screen: Does the patient meet any 2 criteria? No. Patient's initial sepsis screen is negative. Does the patient have a suspected source of infection? No. Patient's initial sepsis screen is negative. Risk Assessment: Do you want to hurt yourself or someone else? Patient reports no desire to harm self or others. 23:05 Method Of Arrival: Ambulatory mg2 23:05 Acuity: GILBERT 4 mg2 23:31 Onset of symptoms was August 2019. mg2 Historical: - Allergies: 23:13 Latex, Natural Rubber; mg2 23:13 SEAFOOD; mg2 - PMHx: 23:13 Heart Murmur; Hernia; mg2 - PSHx: 23:13 Hernia repair; mg2 - Immunization history:: Flu vaccine status is unknown. - Social history:: Smoking status: Patient reports the use of cigarette tobacco products, smokes one-half pack cigarettes per day, Patient/guardian denies using alcohol, street drugs, IV drugs. - Family history:: not pertinent. - Hospitalizations: : No recent hospitalization is reported. Screenin:20 Fall Risk None identified. mg2 23:30 Abuse screen: Denies threats or abuse. Denies injuries from another. Nutritional mg2 screening: No deficits noted. Tuberculosis screening: No symptoms or risk factors identified. Assessment: 23:20 General: Appears in no apparent distress. comfortable, Behavior is calm, cooperative. mg2 23:20 Pain: Complains of pain in abdomen. Neuro: Level of Consciousness is awake, alert, mg2 obeys commands, Oriented to person, place, time, situation. Cardiovascular: Capillary refill < 3 seconds Patient's skin is warm and dry. Respiratory: Airway is patent Respiratory effort is even, unlabored, Respiratory pattern is regular, symmetrical. GI: Bowel sounds present X 4 quads. Abd is soft and non tender Reports lower abdominal pain, upper abdominal pain. : No signs and/or symptoms were reported regarding the genitourinary system. EENT: No signs and/or symptoms were reported regarding the EENT system. Derm: Skin is intact, is healthy with good turgor, Skin is pink, warm \T\ dry. normal. Musculoskeletal: Circulation, motion, and sensation intact. Capillary refill < 3 seconds. Vital Signs: 23:05 BP 130 / 88; Pulse 80; Resp 18; Temp 98.2; Pulse Ox 100% on R/A; Weight 81.65 kg; mg2 Height 5 ft. 4 in. (162.56 cm); Pain 4/10; 23:05 Body Mass Index 30.90 (81.65 kg, 162.56 cm) mg2 ED Course: 22:57 Patient arrived in ED. ag3 22:59 Fredi Kelley MD is Attending Physician. rn 23:05 Kyler Hardy, SAM is Primary Nurse. mg2 23:11 Triage completed. mg2 23:11 Arm band placed on. mg2 23:30 Patient has correct armband on for positive identification. mg2 23:30 No provider procedures requiring assistance completed. Patient did not have IV access mg2 during this emergency room visit. Administered Medications: No medications were administered Outcome: 23:20 Discharge ordered by . rn 23:30 Discharged to home ambulatory. mg2 23:30 Condition: stable 23:30 Discharge instructions given to patient, Instructed on discharge instructions, follow up and referral plans. Demonstrated understanding of instructions, follow-up care. 23:31 Patient left the ED. mg2 Signatures: Fredi Kelley MD MD rn Gardose, Michele, SAM RN mg2 Princess Llamas ag3 Corrections: (The following items were deleted from the chart) 23:22 23:05 Acuity: GILBERT 3 mg2 mg2
--- NOTE | 2019-10-04 23:23 | EDPHYS ---
Physician Documentation [facility] Name: Sunny Angel Age: 29 yrs Sex: Male : 1990 Arrival Date: 10/04/2019 Time: 22:57 Bed 18 Private MD: ED Physician Fredi Kelley HPI: 10/03 23:15 This 29 yrs old Male presents to ER via Ambulatory with complaints of rn Abdominal Pain. 23:15 The patient presents with abdominal pain in the lower abdomen. Onset: The rn symptoms/episode began/occurred 2.5 month(s) ago. The symptoms do not radiate. Associated signs and symptoms: Pertinent positives: constipation, Pertinent negatives: nausea and vomiting, anorexia, diarrhea, dysuria, fever, hematuria, testicular pain, vomiting, vomiting blood. The symptoms are described as intermittent, sharp. Modifying factors: The symptoms are alleviated by nothing, the symptoms are aggravated by exertion and working. Severity of pain: At its worst the pain was moderate in the emergency department the pain has improved. The patient has experienced similar episodes in the past. The patient has been recently seen by a physician:. Reports has been seen for this multiple times, 2.5 months of lower abd pain, told to f/u with GI, had colonoscopy and EGD scheduled but then COVID-19 happened and office is closed for procedures. Continues to have abd pain, sent home by work, told needs clearance to return, does not have PCP, and not able to get work note so came in. Pain has not changed, no fever, no vomiting, no blood in stool. . Historical: - Allergies: 23:13 Latex, Natural Rubber; mg2 23:13 SEAFOOD; mg2 - PMHx: 23:13 Heart Murmur; Hernia; mg2 - PSHx: 23:13 Hernia repair; mg2 - Immunization history:: Flu vaccine status is unknown. - Social history:: Smoking status: Patient reports the use of cigarette tobacco products, smokes one-half pack cigarettes per day, Patient/guardian denies using alcohol, street drugs, IV drugs. - Family history:: not pertinent. - Hospitalizations: : No recent hospitalization is reported. ROS: 23:15 Constitutional: Negative for fever, chills, and weight loss, Eyes: Negative for injury, rn pain, redness, and discharge, Neck: Negative for injury, pain, and swelling, Cardiovascular: Negative for chest pain, palpitations, and edema, Respiratory: Negative for shortness of breath, cough, wheezing, and pleuritic chest pain, Abdomen/GI: + lower abd pain Back: Negative for injury and pain, : Negative for injury, bleeding, discharge, and swelling, MS/Extremity: Negative for injury and deformity, Neuro: Negative for headache, weakness, numbness, tingling, and seizure. Exam: 23:15 Constitutional: This is a well developed, well nourished patient who is awake, alert, rn and in no acute distress. Head/Face: Normocephalic, atraumatic. Abdomen/GI: Soft, non-tender Vital Signs: 23:05 BP 130 / 88; Pulse 80; Resp 18; Temp 98.2; Pulse Ox 100% on R/A; Weight 81.65 kg; mg2 Height 5 ft. 4 in. (162.56 cm); Pain 4/10; 23:05 Body Mass Index 30.90 (81.65 kg, 162.56 cm) mg2 MDM: 23:00 Patient medically screened. rn 23:15 Differential diagnosis: chronic abd pain, inflammatory bowel disease, abd wall pain. rn Data reviewed: vital signs, nurses notes, old medical records, and as a result, I will discharge patient. Counseling: I had a detailed discussion with the patient and/or guardian regarding: the historical points, exam findings, and any diagnostic results supporting the discharge/admit diagnosis, the need for outpatient follow up, to return to the emergency department if symptoms worsen or persist or if there are any questions or concerns that arise at home. Special discussion: Based on the patient's Hx, exam, and Dx evaluation, there is no indication for emergent surgery or inpatient Tx. It is understood by the patient/guardian that if the Sx's persist or worsen they need to return immediately for re-evaluation. I discussed with the patient/guardian in detail that at this point there is no indication for admission to the hospital. It is understood, however, that if the symptoms persist or worsen the patient needs to return immediately for re-evaluation. ED course: Chronic abd pain, needs GI f/u, will dc home, requests note for Sunday/Sunday off so he can f/u with GI. . Administered Medications: No medications were administered Disposition: 10/04/19 23:20 Discharged to Home. Impression: Lower abdominal pain, unspecified, Chronic pain, not elsewhere classified. - Condition is Stable. - Discharge Instructions: Abdominal Pain, Adult, Pain Without a Known Cause. - Medication Reconciliation Form, Thank You Letter, Antibiotic Education, Prescription Opioid Use, Work release form form. - Follow up: Private Physician; When: As needed; Reason: Recheck today's complaints, Re-evaluation by your physician. - Problem is chronic. - Symptoms have improved. Signatures: Fredi Kelley MD MD rn GardoseKyler RN RN mg2 Corrections: (The following items were deleted from the chart) 23:31 23:20 10/04/2019 23:20 Discharged to Home. Impression: Lower abdominal pain, mg2 unspecified; Chronic pain, not elsewhere classified. Condition is Stable. Forms are Medication Reconciliation Form, Thank You Letter, Antibiotic Education, Prescription Opioid Use. Follow up: Private Physician; When: As needed; Reason: Recheck today's complaints, Re-evaluation by your physician. Problem is chronic. Symptoms have improved. rn
[2019-10-04 23:38] VITALS: BP 130/88; TEMP 98.2; O2SAT 100
== END 2019-10-04 23:31 | disposition home or self-care (01) ==
LOC: ER 22:54
DX: G89.29 Other chronic pain (principal); R01.1 Cardiac murmur, unspecified; F17.210 Nicotine dependence, cigarettes, uncomplicated; Z91.040 Latex allergy status; Z91.013 Allergy to seafood; Z91.048 Other nonmedicinal substance allergy status
CPT/HCPCS: 99281

== ENCOUNTER 2021-03-20 22:43 | Emergency (ER) | payer OTHER ==
--- OUTSIDE RECORDS SUMMARY | 2021-03-20 22:46 | XMS REPORT | Continuity of Care Document ---
:1990 Author Organization [facility] t Address [address] [place] [address] Care Team Providers Name Role Phone RENNER Attending Clinician Unavailable RENNER Admitting Clinician Unavailable Problems Condition Condition Condition Status Onset Resolution Last Treating Co mments Source Name Details Category Date Date Treatment Clinician Date Pain in Pain in Problem Active 2016-[address] [facility] pelvis [facility] 2[facility]05 [facility] (LUF/LI V/SA) Finding of Finding of Problem Active 2016-[address] increased increased 0-02 [facility] - blood blood 00:00: [facility] pressure pressure 00 l (LUF/LI V/SA) Lymphadeno Lymphadeno Problem Active 2016-[address] katiuska katiuska 0-02 [facility] (LUF/LI V/SA) Dental Dental Problem Active 2016-[address] [facility] caries caries 0-02 [facility] - [facility] (LUF/LI V/SA) Backache [facility] Problem [facility] (LUF/LI V/SA) Tinea Tinea Problem Active [facility] cruris cruris 7-30 [facility] - [facility]: [facility] l (LUF/LI V/SA) Allergies, Adverse Reactions, Alerts This patient has no known allergies or adverse reactions. Social History Smoking Status Start Date Stop Date Source Heavy tobacco smoker [facility] (LUF/ELISABETH/SA) Medications Ordered Filled Start Stop Current Ordering Indication Dosage Frequency Signature Comments Components Source Medication Medication Date Date Medication? Clinician (SIG) Name Name cetirizine cetirizine No 5mg QD [facility] hydrochlori hydrochlori L ukes - de 5 MG de 5 MG [facility] Oral Tablet Oral Tablet l (LUF/LI V/SA) Hydroxyzine Hydroxyzine No 25mg Q7H [facility] (LUF/LI V/SA) Ibuprofen Ibuprofen No pain 5mg/kg TID [facility] - [facility] l (LUF/LI V/SA) Ibuprofen Ibuprofen No pain 600mg Q5H [facility] 600 MG Oral 600 MG Oral L ukes - Tablet Tablet [facility] l (LUF/LI V/SA) Nystatin Nystatin No 1applic TID [facility] St [id number] [facility] - UNT/ML / UNT/ML / [facility] Triamcinolo Triamcinolo l ne ne (LUF/LI Acetonide 1 Acetonide 1 V /SA) MG/ML MG/ML Topical Topical Cream Cream Amoxicillin Amoxicillin No 875mg BID [facility] 875 MG Oral 875 MG Oral L ukes - Tablet Tablet [facility] (LUF/LI V/SA) Vital Signs Vital Name Observation Time Observation Value Comments Source Respiratory Rate 2017-06-12 19:50:00 18 /min [facility] (LUF/ELISABETH/SA) O2% BldC Oximetry 2017-06-12 19:50:00 98 % [facility] (LUF/ELISABETH/SA) BP Systolic 2017-06-12 19:50:00 128 mm[Hg] [facility] (LUF/ELISABETH/SA) BP Diastolic 2017-06-12 19:50:00 68 mm[Hg] [facility] (LUF/ELISABETH/SA) Body Temperature 2017-06-12 17:02:00 98 F [facility] (LUF/ELISABETH/SA) Height 2017-06-12 17:02:00 65 in [facility] (LUF/ELISABETH/SA) Weight Measured 2017-06-12 17:02:00 174.98 lbs [facility] S [facility] (LUF/LEISABETH/SA) BMI (Body Mass Index) 2017-06-12 17:02:00 29.1 [facility] (LUF/ELISABETH/SA) Procedures This patient has no known procedures. Encounters Start End Encounter Admission Attending Care Care Encounter Source Date/Time Date/Time Type Type Clinicians Facility Department ID 2017-06-12 2017-06-12 STRAIN 1 [facility] [id number] [facility] St 16:57:00 19:55:00 [facility] [place] Estefanía kes - [place] , [address] [facility] ([facility], PATEL V/SA) [place] [id number] Results Test Description Test Time Test Comments Results Result Sour e Comments CT NPO 4 hours. Procedure: CT ABDOMEN/PELVIS 5 Do not ABDOMEN/PELVIS W/O W/O CONTRAST 19:08:00 withhold meds CONTRASTExam Date: 06/12/2017 5:36 PMOrdering Provider: BLANCA Leighical [...] This exam was performed according to the departmentaldose-optimizatio n program which includes automated exposure control, adjustmentof [...] 06/12/20177:01 PMDictated By: ENZO CABRERA.Date: 06/12/2017 19:07 [facility] 2017-06-12 18:51:00 Test Item Value Reference Range Interpretation Comme nts Glucose (test code = GLU) 101 mg/dl 75-110 BUN (test code = BUN) 9.0 mg/dl 6.0-17.0 Creatinine (test code = 1.0 mg/dl 0.4-1.2 CREA) Sodium (test code = NA) 141 mmol/l 137-145 Potassium (test code = K) 3.8 mmol/l 3.5-5.0 Chloride (test code = CL) 106 mmol/l 98-107 CO2 (test code = CO2) 24 mmol/l 22-30 Calcium (test code = 9.3 mg/dl 8.4-10.2 CALC) T Protein (test code = 7.0 gm/dl 5.1-8.7 TP) Albumin (test code = ALB) 4.4 gm/dl 3.5-4.6 A/G Ratio (test code = 1.7 % 1.1-2.2 AGRAT) AST (SGOT) (test code = 20 U/L 11-36 AST) ALT (SGPT) (test code = 35 U/L 11-40 ALT) Alkaline Phos (test code 73 U/L 47-114 = ALKP) Total Bilirubin (test 0.3 mg/dl 0.2-1.2 code = TBIL) Globulin (test code = 2.6 gm/dl 2.3-3.5 GLOBU) Calcium, Corrected (test 9.0 mg/dl 8.4-10.2 Carli ious formulas exist for code = CALCCORR) corrected s toney calcium results, each y ielding different value s. This corrected resul t was based on the formula: Co rrected Calcium = Serum Calcium + [0.8 * ( 4 - SerumAl bumin)] EGFR if >60 mL/min/1.73m\S\2 (test code = EGFRAA) EGFR if Non- >60 mL/min/1.73m\S\2 Estimated Glomerular Czech (test code = Filtra tion Rate (eGFR) EGFRNA) Reference Inter vals Decision Points for 18 y ears and older and average bod y mass: >= 60 Does not exclude kid jennifer disease. 30 - 59 Suggests moderate chroni c kidney disease and indica meghann the need for further inv estigation including asses sment of proteinuria and cardiovascular factors. < 30 Us ually indicates a nee d for referral for assessment and management of chronic kidney failure. Anion Gap (test code = 11 GAP) CBC WITH AUTO [id number] 18:02:00 Test Item Value Reference Range Interpretation Comments WBC (test code = WBC) 8.43 10\S\3/ul 4.80-10.80 RBC (test code = RBC) 4.97 10\S\6/ul 4.70-6.10 Hemoglobin (test code = HGB) 15.5 gm/dl 14.0-18.0 Hematocrit (test code = HCT) 41.6 % 42.0-50.0 L MCV (test code = MCV) 83.7 fL 80.0-94.0 MCH (test code = MCH) 31.2 pg 27.0-31.0 H MCHC (test code = MCHC) 37.3 gm/dl 33.0-37.0 H RDW (test code = RDWVC) 11.5 % 11.5-14.5 Platelet (test code = PLT) 234 10\S\3/ul 130-400 MPV (test code = MPV) 10.0 fL 7.4-10.4 A NE% (test code = NE) 59.2 % 42.0-75.0 LY% (test code = LY) 33.6 % 13.0-42.0 MO% (test code = MO) 6.2 % 4.0-14.0 EO% (test code = EO) 0.7 % 1.0-3.0 L BA% (test code = BA) 0.2 % 1.0-3.0 L IG% (test code = IG%) 0.1 % 0.0-0.4 NRBC, Auto (test code = 0 /100WBC 0-2 NRBC_AUTO) URINALYSIS WITHOUT [id number] 17:32:00 Test Item Value Reference Range Interpretation Comments Color (test code = UCOLR) Yellow Lt. Yellow A Clarity (test code = UCLAR) Clear Glucose (test code = UGLUC) Negative Negative N Bilirubin (test code = UBILI) Negative Negative N Ketones (test code = UKET) Negative Negative N Specific [place] (test code = 1.015 1.005-1.030 A USPGR) Blood (test code = UBLD) Negative Negative N PH (test code = UPH) 7.0 4.5-8.0 A Protein (test code = UPROT) Negative Negative N Urobilinogen (test code = U UROB) 0.2 E.U./dL >0.2 A Nitrite (test code = UNITR) Negative Negative N Leukocyte Esterase (test code = Negative Negative N ULEUK)
--- NOTE | 2021-03-21 01:58 | ER ---
Nurse's Notes [facility] Name: Sunny Angel Age: 30 yrs Sex: Male : 1990 Arrival Date: 03/20/2021 Time: 22:49 Bed 7 Private MD: Diagnosis: Viral infection, unspecified Presentation: 03/20 22:55 Chief complaint: Patient states: Pt states he hasn't been feeling well for the past wg couple days. States he has had a productive cough with yellowish phlegm, feels like he might have a fever and has been feeling achy. Pt denies SOB, CP, dizziness, Abd Pain. Coronavirus screen: Vaccine status: Patient reports being unvaccinated. Client presents with at least one sign or symptom that may indicate coronavirus-19. Standard/surgical mask placed on the client. Ebola Screen: Patient negative for fever greater than or equal to 101.5 degrees Fahrenheit, and additional compatible Ebola Virus Disease symptoms Patient denies exposure to infectious person. Patient denies travel to an Ebola-affected area in the 21 days before illness onset. No symptoms or risks identified at this time. Initial Sepsis Screen: Does the patient meet any 2 criteria? No. Patient's initial sepsis screen is negative. Does the patient have a suspected source of infection? No. Patient's initial sepsis screen is negative. Risk Assessment: Do you want to hurt yourself or someone else? Patient reports no desire to harm self or others. Onset of symptoms was March 18, 2021. Care prior to arrival: jennyfer Langston. 22:55 Method Of Arrival: Ambulatory 22:55 Acuity: GILBERT 4 wg Triage Assessment: 22:59 General: Appears uncomfortable, well groomed, Behavior is calm, cooperative, wg appropriate for age. Pain: Complains of pain in chest- when coughs. EENT: No deficits noted. Neuro: No deficits noted. Cardiovascular: No deficits noted. Respiratory: Reports cough that is productive, Onset: The symptoms/episode began/occurred 2 days, the patient has mild shortness of breath. GI: No deficits noted. : No deficits noted. Derm: No deficits noted. Musculoskeletal: No deficits noted. Historical: - Allergies: 23:00 Latex, Natural Rubber; wg 23:00 SEAFOOD; wg - Immunization history:: Adult Immunizations up to date. - Social history:: Smoking status: Patient reports the use of cigarette tobacco products, smokes one-half pack cigarettes per day, Patient uses alcohol, only on a social basis. Patient/guardian denies using street drugs, IV drugs. Screenin/13 00:11 Abuse screen: Denies threats or abuse. Denies injuries from another. Nutritional ms4 screening: No deficits noted. Tuberculosis screening: No symptoms or risk factors identified. Fall Risk None identified. Assessment: 00:10 Reassessment: Patient appears in no apparent distress at this time. No changes from ms4 previously documented assessment. Patient and/or family updated on plan of care and expected duration. Pain level reassessed. General: Appears in no apparent distress. Behavior is calm, cooperative. Pain: Denies pain. Neuro: No deficits noted. Cardiovascular: No deficits noted. Rhythm is regular. Respiratory: Airway is patent Respiratory effort is even, unlabored, Breath sounds are clear bilaterally. Parent/caregiver reports the patient having cough that is productive. Vital Signs: 03/20 22:55 BP 118 / 74; Pulse 102; Resp 18; Temp 98.2; Pulse Ox 99% on R/A; Weight 81.65 kg; wg Height 5 ft. 4 in. (162.56 cm); Pain 6/10; 22:55 Body Mass Index 30.90 (81.65 kg, 162.56 cm) ED Course: 22:49 Patient arrived in ED. 22:59 Triage completed. wg 22:59 Arm band placed on left wrist. 23:57 Van Montemayor MD is Attending Physician. tw4 03/21 00:10 CXR XRAY In Process Unspecified. EDMS 00:11 No provider procedures requiring assistance completed. ms4 02:15 Patient has correct armband on for positive identification. ms4 02:15 Patient did not have IV access during this emergency room visit. ms4 Administered Medications: No medications were administered Outcome: 01:57 Discharge ordered by . tw4 02:15 Discharged to home ambulatory. ms4 02:15 Condition: stable 02:15 Discharge instructions given to patient, Instructed on discharge instructions, follow up and referral plans. Demonstrated understanding of instructions, follow-up care, medications, Prescriptions given X 2. 02:15 Patient left the ED. ms4 Signatures: Dispatcher [employer] EDMS Van Montemayor, MD MD tw4 Anastacia Brown Mikaela, RN RN ms4 Bennett Blackmon RN wg Corrections: (The following items were deleted from the chart) 03/20 23:01 23:00 PMHx: Heart Murmur; [facility] 23:00 PMHx: Hernia; [facility]
--- NOTE | 2021-03-21 01:58 | EDPHYS ---
Physician Documentation [facility] Name: Sunny Angel Age: 30 yrs Sex: Male : 1990 Arrival Date: 03/20/2021 Time: 22:49 Bed 7 Private MD: ED Physician Van Montemayor HPI: 03/21 06:06 This 30 yrs old Male presents to ER via Ambulatory with complaints of tw4 Productive Cough. 06:06 The patient or guardian reports cough. Onset: The symptoms/episode began/occurred 2 tw4 day(s) ago. Severity of symptoms: At their worst the symptoms were moderate, in the emergency department the symptoms are unchanged. Modifying factors: The symptoms are alleviated by nothing, the symptoms are aggravated by nothing. The patient has not experienced similar symptoms in the past. Historical: - Allergies: 03/20 23:00 Latex, Natural Rubber; wg 23:00 SEAFOOD; wg - Immunization history:: Adult Immunizations up to date. - Social history:: Smoking status: Patient reports the use of cigarette tobacco products, smokes one-half pack cigarettes per day, Patient uses alcohol, only on a social basis. Patient/guardian denies using street drugs, IV drugs. ROS: 03/21 06:06 Constitutional: Negative for fever, chills, and weight loss, Eyes: Negative for injury, tw4 pain, redness, and discharge, Cardiovascular: Negative for chest pain, palpitations, and edema, Abdomen/GI: Negative for abdominal pain, nausea, vomiting, diarrhea, and constipation, Back: Negative for injury and pain, MS/Extremity: Negative for injury and deformity, Skin: Negative for injury, rash, and discoloration, Neuro: Negative for headache, weakness, numbness, tingling, and seizure. Respiratory: Positive for cough, shortness of breath, Negative for dyspnea on exertion, hemoptysis, orthopnea, pleurisy, shortness of breath. Exam: 06:06 Constitutional: This is a well developed, well nourished patient who is awake, alert, tw4 and in no acute distress. Head/Face: Normocephalic, atraumatic. Chest/axilla: Normal chest wall appearance and motion. Nontender with no deformity. No lesions are appreciated. Cardiovascular: Regular rate and rhythm with a normal S1 and S2. No gallops, murmurs, or rubs. Normal PMI, no JVD. No pulse deficits. Respiratory: Lungs have equal breath sounds bilaterally, clear to auscultation and percussion. No rales, rhonchi or wheezes noted. No increased work of breathing, no retractions or nasal flaring. Abdomen/GI: Soft, non-tender, with normal bowel sounds. No distension or tympany. No guarding or rebound. No evidence of tenderness throughout. Back: No spinal tenderness. No costovertebral tenderness. Full range of motion. MS/ Extremity: Pulses equal, no cyanosis. Neurovascular intact. Full, normal range of motion. Neuro: Awake and alert, GCS 15, oriented to person, place, time, and situation. Cranial nerves II-XII grossly intact. Motor strength 5/5 in all extremities. Sensory grossly intact. Cerebellar exam normal. Normal gait. Vital Signs: 03/20 22:55 BP 118 / 74; Pulse 102; Resp 18; Temp 98.2; Pulse Ox 99% on R/A; Weight 81.65 kg; wg Height 5 ft. 4 in. (162.56 cm); Pain 6/10; 22:55 Body Mass Index 30.90 (81.65 kg, 162.56 cm) wg MDM: 03/21 01:57 Patient medically screened. tw4 06:16 Data reviewed: vital signs, nurses notes, radiologic studies, plain films. Counseling: tw4 I had a detailed discussion with the patient and/or guardian regarding: the historical points, exam findings, and any diagnostic results supporting the discharge/admit diagnosis. Special discussion: I discussed with the patient/guardian in detail that at this point there is no indication for admission to the hospital. It is understood, however, that if the symptoms persist or worsen the patient needs to return immediately for re-evaluation. 03/20 23:02 Order name: COVID-19 : Document "Date of Symptom Onset" if Symptomatic. 03/20 23:03 Order name: CXR XRAY tw4 03/21 00:17 Order name: SARS-COV-2 RT PCR EDMS Administered Medications: No medications were administered Disposition Summary: 03/21/21 01:57 Discharge Ordered Location: Home tw4 Problem: new tw4 Symptoms: have improved tw4 Condition: Stable tw4 Diagnosis - Viral infection, unspecified tw4 Followup: tw4 - With: Private Physician - When: Upon discharge from the Emergency Department - Reason: Recheck today's complaints, Continuance of care, Re-evaluation by your physician Discharge Instructions: - Discharge Summary Sheet tw4 - Viral Respiratory Infection tw4 - Cough, Adult tw4 - Viral Illness, Adult tw4 Forms: - Medication Reconciliation Form tw4 - Thank You Letter tw4 - Antibiotic Education tw4 - Prescription Opioid Use tw4 Prescriptions: - Tessalon Perles 100 mg Oral Capsule - take 1 capsule by ORAL route every 8 hours As needed; 15 capsule; Refills: 0, tw4 Product Selection Permitted - Ibuprofen 800 mg Oral Tablet - take 1 tablet by ORAL route every 8 hours As needed take with food; 30 tablet; tw4 Refills: 0, Product Selection Permitted Signatures: Dispatcher [employer] Van Norman MD MD tw4 Bennett Blackmon RN Corrections: (The following items were deleted from the chart) 03/20 23:01 23:00 PMHx: Heart Murmur; [facility] 23:00 PMHx: Hernia; [facility] 23:03 CORONAVIRUS ordered. EDMS EDMS
[2021-03-21 02:21] VITALS: BP 118/74; TEMP 98.2; O2SAT 99
--- NOTE | 2021-03-21 07:24 | RAD REPORT ---
EXAM DESCRIPTION: RAD - Chest Single View - 03/21/2021 12:09 am CLINICAL HISTORY: COUGH COMPARISON: Chest Pa And Lat (2 Views) dated 03/28/2019; Chest Pa And Lat (2 Views) dated 03/19/2019; Chest Single View dated 05/07/2016; CHEST SINGLE VIEW dated 08/02/2015 FINDINGS: Lines: None. Lungs: Decreased lung volumes with increased prominence of the pulmonary vasculature. Pleural: No significant pleural effusions or pneumothorax. Cardiac: Cardiomegaly Bones: No acute fractures. Other: IMPRESSION: Increased prominence of the pulmonary interstitium likely reflects pulmonary vascular co ngestion.
== END 2021-03-21 02:15 | disposition home or self-care (01) ==
LOC: ER 22:43
DX: B34.9 Viral infection, unspecified (principal); F17.210 Nicotine dependence, cigarettes, uncomplicated; Z20.822 Contact with and (suspected) exposure to COVID-19; Z91.013 Allergy to seafood; Z91.040 Latex allergy status; Z91.048 Other nonmedicinal substance allergy status
CPT/HCPCS: 71045; 99283; U0003

== ENCOUNTER 2021-06-16 13:53 | Emergency (ER) | payer OTHER ==
--- OUTSIDE RECORDS SUMMARY | 2021-06-16 13:57 | XMS REPORT | Continuity of Care Document ---
:1990 Author Organization [facility] t Address [address] [place] [address] Care Team Providers Name Role Phone PCP, DOES NOT HAVE A Primary Care Physician Unavailable Rose Marie GAYTAN, T Attending Clinician Emmett PEGA DEVELOPER Attending Clinician Doctor Unassigned, Name Attending Clinician Unavailable [facility] Attending Clinician Unavailable Tena DAVISP Attending Clinician MARSHA F Attending Clinician Unavailable Marsha DAVISP, F Attending Clinician Singer RAJPUT Attending Clinician ZURDO Attending Clinician Unavailable Manoj LIMON Admitting Clinician Unavailable ZURDO Admitting Clinician Unavailable Payers Payer Name Policy Type Policy Number Effective Date Expiration Date S [employer] [place] - [id number] 2019 OUT OF STATE 00:00:00 [facility] [id number] 2017 [facility] MEDICAID 00:00:00 Problems Condition Condition Condition Status Onset Resolution [...] - 00:00: Memoria 00 l (LUF/LI V/SA) No known No known Disease Unive rs active active ity of problems problems [facility] Allergies, Adverse Reactions, Alerts Allergy Allergy Status Severity Reaction(s) Onset Inactive Treating Comm ents Source Name Type Date Date Clinician Latex Propensi Active Rash Univers ty to 10-17 ity of adverse 00:00: [place] reaction 00 Medical s Branch LATEX DRUG Active Rash Univers INGREDI 10-17 ity of 00:00: [place] 00 Medical Branch SHRIMP DRUG Active Anaphylaxis Unive rs INGREDI 03-30 ity of 00:00: [place] 00 Medical Branch Shrimp Propensi Active Anaphylaxis Pt Uni vers ty to 03-30 reports ity of adverse 00:00: it is [place] reaction 00 only raw Medica l s shrimp. Branch Pt reports he can eat cooked shrimp. Social History Social Habit Start Date Stop Date Quantity Comments Source History of tobacco 2002-10-17 Smoker Univer sity of use 00:00:00 [facility] Exposure to Not sure [facility] SARS-CoV-2 (event) [facility] Sex Assigned At Universit y of [facility] Tobacco use and 2020-02-06 2020-02-06 Never used Universit y of exposure 00:00:00 00:00:00 [facility] Cigarettes smoked 2020-02-06 2020-02-06 Univers ity of current (pack per 00:00:00 00:00:00 ) - Reported Branch Cigarette 2020-02-06 2020-02-06 University of pack-years 00:00:00 00:00:00 [facility] Alcohol intake 2020-02-06 2020-02-06 Current University of 00:00:00 00:00:00 non-drinker of [facility] alcohol [place] (finding) Smoking Status Start Date Stop Date Source Heavy tobacco smoker [facility] (LUF/ELISABETH/SA) Current every day smoker 2020-02-06 00:00:00 [facility] [place] Medications Ordered Filled Start Stop Current Ordering Indication Dosage Frequency Signature Comments Components Source Medication Medication Date Date Medication? Clinician (SIG) Name Name ondansetron 2019- No 4mg 4 mg, Slow Univers (ZOFRAN 02-15 IV Push, ity of (PF)) 04:37: 04:37 ONCE, 1 [place] injection 4 00 :00 dose, Sun Med ical mg 02/15/20 at Branch 2345, [place] ketorolac 2019- No 30mg 30 mg, Unive rs (TORADOL) 02-15 Slow IV ity of injection 03:15: 02:09 Push, [place] 30 mg 00 :00 ONCE, 1 Medical dose, Sun Branch 02/15/20 at 2215, [place]
Fa culty member approving Restricted medication : EMERGENCY ROOM, iohexol 2019- No 120mL 120 mL, Unive rs (OMNIPAQUE 02-15 Intravenou it y of 350 03:00: 03:00 s, ONCE, 1 [place] BULK-150 00 :00 dose, Sun Medica l mL) 02/15/20 at [place] injection 2200, 120 mL Routine hydrocortis Yes [id number] Insert Univers one 8-10 into ity of (ANUSOL-HC) 00:00: rectum 2 [place] 2.5 % 00 (two) Medical rectal times Branch cream daily. cephALEXin 2020- No [id number] 500mg Take 1 Univers (KEFLEX) 02-05 capsule by ity of 500 mg 00:00: 04:59 mouth 4 [place] capsule 00 :00 (four) Medical times Branch daily for 7 days. benzonatate 2019- 2020- No [id number] 100mg Take 1 Univers (TESSALON 01-1824 capsule by ity of PERLES) 100 00:00: 04:59 mouth 3 [place] mg capsule 00 :00 (three) Medica l times Branch daily as needed for Cough for up to 10 days. doxycycline 2019- 2020- No [id number] 100mg Take 1 Univers hyclate 100 01-18-21 tablet by it y of mg tablet 00:00: 04:59 mouth 2 [place] 00 :00 (two) Medical times Branch daily for 7 days. ondansetron 2019-2019- No 4mg 4 mg, Slow Univers (ZOFRAN 09-19 IV Push, ity of (PF)) 02:15: 01:15 ONCE, 1 [place] injection 4 00 :00 dose, Fri Med ical mg 09/19/19 at Branch 2115, [place] morpHINE 2019-0 2019- No 4mg 4 mg, Slow [place] injection 4 09-19 IV Push, ity of mg 02:15: 01:15 ONCE, 1 [place] 00 :00 dose, Fri Medical 09/19/19 at Branch 2115, STAT dicyclomine 2019-2019- No 20mg 20 mg, Uni vers (BENTYL) 09-19 Intramuscu ity of injection 02:15: 01:14 lar, ONCE [place] 20 mg 00 :00 NOW, 1 Medical dose, Fri Branch 09/19/19 at 2115, Routine NaCl 0.9% 2019- No 1000mL at 999 Uni vers (NS) bolus 09-18 mL/hr, ity of infusion 23:00: 01:26 1,000 mL, Kristian as 1,000 mL 00 :00 IV Medical Infusion, Branch ONCE, 1 dose, 09/19/19 at 1800, [place] docusate 2019-2019- No [id number] 100mg Take 1 U nivers 100 mg 09-18 capsule by ity of capsule 00:00: 04:59 mouth [place] 00 :00 daily for Medical 7 days. Branch dicyclomine 2019-0 2020- No [id number] 20mg Take 1 Univers 20 mg 09-18 tablet by ity of tablet 00:00: 04:59 mouth 4 [place] 00 :00 (four) Medical times Branch daily for 7 days. polyethlene 2019- 2020- No [id number] 17g Take 17 g Univers glycol 09-1818 by mouth ity of powder 00:00: 04:59 daily for [place] packet 00 :00 4 days. Medical Branch iohexol 2019-0 2020- No 120mL 120 mL, Unive rs (OMNIPAQUE 1-20 Intravenou it y of 350 03:00: 02:41 s, ONCE, 1 [place] BULK-100 00 :00 dose, Sun Medica l mL) 07/27/19 at Branch injection 2100, 120 mL Routine dicyclomine 2020-0 Yes 10mg 10 mg, Univ ers (BENTYL) 1-20 Oral, QID, ity o f capsule 10 02:00: First dose [place] mg 00 on Sun Medical 07/27/19 at Branch 2000, Until Discontinu ed, Routine dicyclomine 2020-0 Yes [id number] 10mg Take 1 Univers (BENTYL) 10 1-19 capsule by it y of mg capsule 00:00: mouth [place] 00 every 8 Medical (eight) Branch hours as needed for Abdominal pain. ondansetron 2020-0 Yes [id number] 4mg Take 1 Univers 4 mg 1-19 tablet by ity of disintegrat 00:00: mouth [place] ing tablet 00 every 8 Medica l (eight) Branch hours as needed for Nausea and Vomiting (N/V). methylPREDN 2020-0 Yes [id number] Take by Univers ISolone 1-19 mouth ity of (MEDROL, 00:00: SEE-INSTRU [place] as JENNY,) 4 mg 00 CTIONS. Medica l tablets follow Branch package directions dicyclomine 2020-0 Yes [id number] 10mg Take 1 Univers (BENTYL) 10 1-19 capsule by it y of mg capsule 00:00: mouth [place] 00 every 8 Medical (eight) Branch hours as needed for Abdominal pain. ondansetron 2020-0 Yes [id number] 4mg Take 1 Univers 4 mg 1-19 tablet by ity of disintegrat 00:00: mouth [place] ing tablet 00 every 8 Medica l (eight) Branch hours as needed for Nausea and Vomiting (N/V). methylPREDN 2020-0 Yes [id number] Take by Univers ISolone 1-19 mouth ity of (MEDROL, 00:00: SEE-INSTRU [place] JENNY,) 4 mg 00 CTIONS. Medica l tablets follow Branch package directions dicyclomine 2020-0 Yes [id number] 10mg Take 1 Univers (BENTYL) 10 1-19 capsule by it y of mg capsule 00:00: mouth [place] 00 every 8 Medical (eight) Branch hours as needed for Abdominal pain. ondansetron 2020-0 Yes [id number] 4mg Take 1 Univers 4 mg 1-19 tablet by ity of disintegrat 00:00: mouth [place] ing tablet 00 every 8 Medica l (eight) Branch hours as needed for Nausea and Vomiting (N/V). methylPREDN 2020-0 Yes [id number] Take by Univers ISolone 1-19 mouth ity of (MEDROL, 00:00: SEE-INSTRU [place] as JENNY,) 4 mg 00 CTIONS. Medica l tablets follow Branch package directions dicyclomine 2020-0 Yes [id number] 10mg Take 1 Univers (BENTYL) 10 1-19 capsule by it y of mg capsule 00:00: mouth [place] 00 every 8 Medical (eight) Branch hours as needed for Abdominal pain. ondansetron 2020-0 Yes [id number] 4mg Take 1 Univers 4 mg 1-19 tablet by ity of disintegrat 00:00: mouth [place] ing tablet 00 every 8 Medica l (eight) Branch hours as needed for Nausea and Vomiting (N/V). methylPREDN 2020-0 Yes [id number] Take by Univers ISolone 1-19 mouth ity of (MEDROL, 00:00: SEE-INSTRU [place] JENNY,) 4 mg 00 CTIONS. Medica l tablets follow Branch package directions dicyclomine 2020-0 Yes [id number] 10mg Take 1 Univers (BENTYL) 10 1-19 capsule by it y of mg capsule 00:00: mouth [place] 00 every 8 Medical (eight) Branch hours as needed for Abdominal pain. ondansetron 2020-0 Yes [id number] 4mg Take 1 Univers 4 mg 1-19 tablet by ity of disintegrat 00:00: mouth [place] ing tablet 00 every 8 Medica l (eight) Branch hours as needed for Nausea and Vomiting (N/V). methylPREDN 2020-0 Yes [id number] Take by Univers ISolone 1-19 mouth ity of (MEDROL, 00:00: SEE-INSTRU [place] as JENNY,) 4 mg 00 CTIONS. Medica l tablets follow Branch package directions sucralfate 2020-0 Yes [id number] 1g Take 1 U nivers 1 gram 1-19 tablet by ity of tablet 00:00: mouth [place] 00 before Medical meals and Branch at bedtime. dicyclomine 2020-0 Yes [id number] 10mg Take 1 Univers (BENTYL) 10 1-19 capsule by it y of mg capsule 00:00: mouth [place] 00 every 8 Medical (eight) Branch hours as needed for Abdominal pain. ondansetron 2020-0 Yes [id number] 4mg Take 1 Univers 4 mg 1-19 tablet by ity of disintegrat 00:00: mouth [place] ing tablet 00 every 8 Medica l (eight) Branch hours as needed for Nausea and Vomiting (N/V). methylPREDN 2020-0 Yes [id number] Take by Univers ISolone 1-19 mouth ity of (MEDROL, 00:00: SEE-INSTRU [place] as JENNY,) 4 mg 00 CTIONS. Medica l tablets follow Branch package directions sucralfate 2020-0 Yes [id number] 1g Take 1 U nivers 1 gram 1-19 tablet by ity of tablet 00:00: mouth [place] 00 before Medical meals and Branch at bedtime. dicyclomine 2020-0 Yes [id number] 10mg Take 1 Univers (BENTYL) 10 1-19 capsule by it y of mg capsule 00:00: mouth [place] 00 every 8 Medical (eight) Branch hours as needed for Abdominal pain. ondansetron 2020-0 Yes [id number] 4mg Take 1 Univers 4 mg 1-19 tablet by ity of disintegrat 00:00: mouth [place] ing tablet 00 every 8 Medica l (eight) Branch hours as needed for Nausea and Vomiting (N/V). methylPREDN 2020-0 Yes [id number] Take by Univers ISolone 1-19 mouth ity of (MEDROL, 00:00: SEE-INSTRU [place] as JENNY,) 4 mg 00 CTIONS. Medica l tablets follow Branch package directions sucralfate 2020-0 Yes [id number] 1g Take 1 U nivers 1 gram 1-19 tablet by ity of tablet 00:00: mouth [place] 00 before Medical meals and Branch at bedtime. dicyclomine 2020-0 Yes [id number] 10mg Take 1 Univers (BENTYL) 10 1-19 capsule by it y of mg capsule 00:00: mouth [place] 00 every 8 Medical (eight) Branch hours as needed for Abdominal pain. ondansetron 2020-0 Yes [id number] 4mg Take 1 Univers 4 mg 1-19 tablet by ity of disintegrat 00:00: mouth [place] ing tablet 00 every 8 Medica l (eight) Branch hours as needed for Nausea and Vomiting (N/V). methylPREDN 2020-0 Yes [id number] Take by Univers ISolone 1-19 mouth ity of (MEDROL, 00:00: SEE-INSTRU [place] as JENNY,) 4 mg 00 CTIONS. Medica l tablets follow Branch package directions sucralfate 2020-0 Yes [id number] 1g Take 1 U nivers 1 gram 1-19 tablet by ity of tablet 00:00: mouth [place] 00 before Medical meals and Branch at bedtime. dicyclomine 2020-0 Yes [id number] 10mg Take 1 Univers (BENTYL) 10 1-19 capsule by it y of mg capsule 00:00: mouth [place] 00 every 8 Medical (eight) Branch hours as needed for Abdominal pain. ondansetron 2020-0 Yes [id number] 4mg Take 1 Univers 4 mg 1-19 tablet by ity of disintegrat 00:00: mouth [place] ing tablet 00 every 8 Medica l (eight) Branch hours as needed for Nausea and Vomiting (N/V). methylPREDN 2020-0 Yes [id number] Take by Univers ISolone 1-19 mouth ity of (MEDROL, 00:00: SEE-INSTRU [place] as JENNY,) 4 mg 00 CTIONS. Medica l tablets follow Branch package directions sucralfate 2019-0 2020- No [id number] 1g Take 1 Univers 1 gram 1-19 07-13 tablet by ity of tablet 00:00: 00:00 mouth [place] 00 :00 before Medical meals and Branch at bedtime. omeprazole 2020-0 2020- No [id number] 20mg Take 1 Univers 20 mg 1-19 02-19 capsule by ity of capsule 00:00: 05:59 mouth [place] 00 :00 daily for Medical 30 days. Branch metoclopram 2018-07 Yes [id number] 10mg Take 1 Univers nba HCl 10 1-18 tablet by ity of mg tablet 00:00: mouth [place] 00 every 6 Medical (six) Branch hours as needed for Nausea and Vomiting (N/V). metoclopram 2018-07 Yes [id number] 10mg Take 1 Univers nba HCl 10 1-18 tablet by ity of mg tablet 00:00: mouth [place] 00 every 6 Medical (six) Branch hours as needed for Nausea and Vomiting (N/V). metoclopram 2018-07 Yes [id number] 10mg Take 1 Univers nba HCl 10 1-18 tablet by ity of mg tablet 00:00: mouth [place] 00 every 6 Medical (six) Branch hours as needed for Nausea and Vomiting (N/V). metoclopram 2018-07 Yes [id number] 10mg Take 1 Univers nba HCl 10 1-18 tablet by ity of mg tablet 00:00: mouth [place] 00 every 6 Medical (six) Branch hours as needed for Nausea and Vomiting (N/V). metoclopram 2018-07 Yes [id number] 10mg Take 1 Univers nba HCl 10 1-18 tablet by ity of mg tablet 00:00: mouth [place] 00 every 6 Medical (six) Branch hours as needed for Nausea and Vomiting (N/V). metoclopram 2018-07 Yes [id number] 10mg Take 1 Univers nba HCl 10 1-18 tablet by ity of mg tablet 00:00: mouth [place] 00 every 6 Medical (six) Branch hours as needed for Nausea and Vomiting (N/V). metoclopram 2018-07 Yes [id number] 10mg Take 1 Univers nba HCl 10 1-18 tablet by ity of mg tablet 00:00: mouth [place] 00 every 6 Medical (six) Branch hours as needed for Nausea and Vomiting (N/V). metoclopram 2018-07 Yes [id number] 10mg Take 1 Univers nba HCl 10 1-18 tablet by ity of mg tablet 00:00: mouth [place] 00 every 6 Medical (six) Branch hours as needed for Nausea and Vomiting (N/V). metoclopram 2018-07 Yes [id number] 10mg Take 1 Univers nba HCl 10 1-18 tablet by ity of mg tablet 00:00: mouth [place] 00 every 6 Medical (six) Branch hours as needed for Nausea and Vomiting (N/V). dicyclomine 2018-07 2020- No [id number] 20mg Take 1 Univers (BENTYL) 20 1-18 -19 tablet by it y of mg tablet 00:00: 00:00 mouth [place] 00 :00 every 6 Medical (six) Branch hours as needed for Abdominal pain. varenicline Yes 1mg Take 1 Univ ers (CHANTIX 5-30 tablet by ity of CONTINUING 00:00: mouth 2 [place] MONTH JENNY) 00 (two) Medical 1 mg tablet times Branch daily. varenicline 2018-0 Yes 1mg Take 1 Univ ers (CHANTIX 5-30 tablet by ity of CONTINUING 00:00: mouth 2 [place] MONTH JENNY) 00 (two) Medical 1 mg tablet times Branch daily. varenicline 2018-0 Yes 1mg Take 1 Univ ers (CHANTIX 5-30 tablet by ity of CONTINUING 00:00: mouth 2 [place] MONTH JENNY) 00 (two) Medical 1 mg tablet times Branch daily. varenicline 2018-0 Yes 1mg Take 1 Univ ers (CHANTIX 5-30 tablet by ity of CONTINUING 00:00: mouth 2 [place] MONTH JENNY) 00 (two) Medical 1 mg tablet times Branch daily. varenicline 2018-0 Yes 1mg Take 1 Univ ers (CHANTIX 5-30 tablet by ity of CONTINUING 00:00: mouth 2 [place] MONTH JENNY) 00 (two) Medical 1 mg tablet times Branch daily. varenicline 2018-0 Yes 1mg Take 1 Univ ers (CHANTIX 5-30 tablet by ity of CONTINUING 00:00: mouth 2 [place] MONTH JENNY) 00 (two) Medical 1 mg tablet times Branch daily. varenicline 2018-0 Yes 1mg Take 1 Univ ers (CHANTIX 5-30 tablet by ity of CONTINUING 00:00: mouth 2 [place] MONTH JENNY) 00 (two) Medical 1 mg tablet times Branch daily. varenicline 2018-0 Yes 1mg Take 1 Univ ers (CHANTIX 5-30 tablet by ity of CONTINUING 00:00: mouth 2 [place] MONTH JENNY) 00 (two) Medical 1 mg tablet times Branch daily. varenicline 2018-0 Yes 1mg Take 1 Univ ers (CHANTIX 5-30 tablet by ity of CONTINUING 00:00: mouth 2 [place] MONTH JENNY) 00 (two) Medical 1 mg tablet times Branch daily. cyclobenzap 2018-0 Yes 5mg Take 1 Univ ers rine 5 mg 5-18 tablet by ity o f tablet 00:00: mouth 3 00 (three) Medical times Branch daily. cyclobenzap 2018-0 Yes 5mg Take 1 Univ ers rine 5 mg 5-18 tablet by ity o f tablet 00:00: mouth 3 00 (three) Medical times Branch daily. cyclobenzap 2018-0 Yes 5mg Take 1 Univ ers rine 5 mg 5-18 tablet by ity o f tablet 00:00: mouth 3 (three) Medical times Branch daily. cyclobenzap 2018-0 Yes 5mg Take 1 Univ ers rine 5 mg 5-18 tablet by ity o f tablet 00:00: mouth 3 (three) Medical times Branch daily. cyclobenzap 2018-0 Yes 5mg Take 1 Univ ers rine 5 mg 5-18 tablet by ity o f tablet 00:00: mouth (three) Medical times Branch daily. cyclobenzap 2018-0 Yes 5mg Take 1 Univ ers rine 5 mg 5-18 tablet by ity o f tablet 00:00: mouth (three) Medical times Branch daily. cyclobenzap 2018-0 Yes 5mg Take 1 Univ ers rine 5 mg 5-18 tablet by ity o f tablet 00:00: mouth (three) Medical times Branch daily. cyclobenzap 2018-0 Yes 5mg Take 1 Univ ers rine 5 mg 5-18 tablet by ity o f tablet 00:00: mouth (three) Medical times Branch daily. cyclobenzap 2018-0 Yes 5mg Take 1 Univ ers rine 5 mg 5-18 tablet by ity o f tablet 00:00: mouth (three) Medical times Branch daily. varenicline 2017-0 Yes Take one [place] (CHANTIX) 4-11 0.5mg tab ity o f 0.5 mg 00:00: by mouth ()- 1 mg 00 once daily Med ical (42) tablet for 3 Branch days, then one 0.5mg tab twice daily for 4 days, then one 1mg tab twice daily. varenicline 2017-0 Yes Take one [place] (CHANTIX) 4-11 0.5mg tab ity o f 0.5 mg 00:00: by mouth (11)- 1 mg 00 once daily Med ical (42) tablet for 3 Branch days, then one 0.5mg tab twice daily for 4 days, then one 1mg tab twice daily. varenicline 2018-0 Yes Take one [place] (CHANTIX) 4-11 0.5mg tab ity o f 0.5 mg 00:00: by mouth (11)- 1 mg 00 once daily Med ical (42) tablet for 3 Branch days, then one 0.5mg tab twice daily for 4 days, then one 1mg tab twice daily. varenicline Yes Take one [place] (CHANTIX) 4-11 0.5mg tab ity o f 0.5 mg 00:00: by mouth [place] (11)- 1 mg 00 once daily Med ical (42) tablet for 3 Branch days, then one 0.5mg tab twice daily for 4 days, then one 1mg tab twice daily. varenicline Yes Take one [place] (CHANTIX) 4-11 0.5mg tab ity o f 0.5 mg 00:00: by mouth [place] (11)- 1 mg 00 once daily Med ical (42) tablet for 3 Branch days, then one 0.5mg tab twice daily for 4 days, then one 1mg tab twice daily. varenicline Yes Take one [place] (CHANTIX) 4-11 0.5mg tab ity o f 0.5 mg 00:00: by mouth [place] (11)- 1 mg 00 once daily Med ical (42) tablet for 3 Branch days, then one 0.5mg tab twice daily for 4 days, then one 1mg tab twice daily. varenicline Yes Take one [place] (CHANTIX) 4-11 0.5mg tab ity o f 0.5 mg 00:00: by mouth [place] (11)- 1 mg 00 once daily Med ical (42) tablet for 3 Branch days, then one 0.5mg tab twice daily for 4 days, then one 1mg tab twice daily. varenicline Yes Take one [place] (CHANTIX) 4-11 0.5mg tab ity o f 0.5 mg 00:00: by mouth [place] (11)- 1 mg 00 once daily Med ical (42) tablet for 3 Branch days, then one 0.5mg tab twice daily for 4 days, then one 1mg tab twice daily. varenicline Yes Take one [place] (CHANTIX) 4-11 0.5mg tab ity o f 0.5 mg 00:00: by mouth [place] (11)- 1 mg 00 once daily Med ical (42) tablet for 3 Branch days, then one 0.5mg tab twice daily for 4 days, then one 1mg tab twice daily. cetirizine cetirizine No 5mg QD [facility] hydrochlori hydrochlori L [facility]kes - de 5 MG de 5 MG Memoria Oral Tablet Oral Tablet l (LUF/LI V/SA) Hydroxyzine Hydroxyzine No 25mg Q7H [facility] (LUF/LI V/SA) Ibuprofen Ibuprofen No pain 5mg/kg TID [facility] (LUF/LI V/SA) Ibuprofen Ibuprofen No pain 600mg Q5H [facility] 600 MG Oral 600 MG Oral L ukes - Tablet Tablet Memoria l (LUF/LI V/SA) Nystatin Nystatin No 1applic TID [facility] [id number] [facility] - UNT/ML / UNT/ML / Memoria Triamcinolo Triamcinolo l ne ne (LUF/LI Acetonide 1 Acetonide 1 V /SA) MG/ML MG/ML Topical Topical Cream Cream Amoxicillin Amoxicillin No 875mg BID [facility] 875 MG Oral 875 MG Oral L ukes - Tablet Tablet Memoria l (LUF/LI V/SA) Vital Signs Vital Name Observation Time Observation Value Comments Source Systolic blood 2020-02-16 05:15:00 137 mm[Hg] [facility] Diastolic blood 2020-02-16 05:15:00 93 mm[Hg] [facility] Heart rate 2020-02-16 05:15:00 79 /min [facility] Respiratory rate 2020-02-16 05:15:00 18 /min [facility] Oxygen saturation in 2020-02-16 05:15:00 99 /min [facility] Arterial blood by [facility] Pulse oximetry [place] Body temperature 2020-02-16 01:23:00 37.28 [place] [facility] Body weight 2020-02-16 01:23:00 78.019 kg [facility] BMI 2020-02-16 01:23:00 29.52 kg/m2 [facility] Systolic blood 2020-02-06 22:28:00 129 mm[Hg] [facility] Diastolic blood 2020-02-06 22:28:00 93 mm[Hg] Unive rsity of pressure [facility] Heart rate 2020-02-06 22:28:00 100 /min [facility] Body temperature 2020-02-06 22:28:00 36.72 [place] Univ ers[facility] [place] [facility] Respiratory rate 2020-02-06 22:28:00 18 /min Univ ers[facility] Body weight 2020-02-06 22:28:00 79.379 kg [facility] BMI 2020-02-06 22:28:00 30.04 kg/m2 [facility] Oxygen saturation in 2020-02-06 22:28:00 98 /min University of Arterial blood by [place] [employer] [facility] Pulse oximetry Branch Systolic blood 2020-01-19 18:07:00 125 mm[Hg] Univer sity of pressure [facility] Diastolic blood 2020-01-19 18:07:00 83 mm[Hg] Unive rsity of pressure [facility] Heart rate 2020-01-19 18:07:00 83 /min [facility] Body temperature 2020-01-19 18:07:00 37.11 [place] [facility] Respiratory rate 2020-01-19 18:07:00 17 /min Univ [facility] Body height 2020-01-19 18:07:00 162.6 cm [facility] Body weight 2020-01-19 18:07:00 79.379 kg [facility] [place] [facility] BMI 2020-01-19 18:07:00 30.04 kg/m2 [facility] Oxygen saturation in 2020-01-19 18:07:00 98 /min University of Arterial blood by [place] [employer] [facility]ami Pulse oximetry Branch Systolic blood 2019-09-20 00:00:00 124 mm[Hg] Univer sity of pressure [facility] Diastolic blood 2019-09-20 00:00:00 75 mm[Hg] Unive rsity of pressure [place] [facility] Heart rate 2019-09-20 00:00:00 74 /min [facility] [place] [facility] Respiratory rate 2019-09-20 00:00:00 16 /min Univ [facility] Oxygen saturation in 2019-09-20 00:00:00 95 /min University of Arterial blood by [place] [employer] [place] Pulse oximetry Branch Body temperature 2019-09-19 22:27:00 36.56 [facility] 2019-09-19 22:27:00 81.647 kg [facility] BMI 2019-09-19 22:27:00 30.90 kg/m2 [facility] Systolic blood 2019-07-28 03:49:00 123 mm[Hg] Univer sity of pressure [facility] Diastolic blood 2019-07-28 03:49:00 90 mm[Hg] Unive rsity of pressure [facility] Heart rate 2019-07-28 03:49:00 72 /min [facility] Body temperature 2019-07-28 03:49:00 36.56 Pennie [facility] 2019-07-28 03:49:00 18 /min [facility] Oxygen saturation in 2019-07-28 03:49:00 95 /min [facility] Arterial blood by [facility] Pulse oximetry [place] Body height 2019-07-28 00:55:00 162.6 cm [facility] Body weight 2019-07-28 00:55:00 81.647 kg [facility] BMI 2019-07-28 00:55:00 30.90 kg/m2 [facility] Respiratory Rate 2017-06-12 19:50:00 18 /min [facility] (LUF/ELISABETH/SA) O2% BldC Oximetry 2017-06-12 19:50:00 98 % [facility] (LUF/ELISABETH/SA) BP Systolic 2017-06-12 19:50:00 128 mm[Hg] [facility] (LUF/ELISABETH/SA) BP Diastolic 2017-06-12 19:50:00 68 mm[Hg] [facility] (LUF/ELISABETH/SA) Body Temperature 2017-06-12 17:02:00 98 F [facility] (LUF/ELISABETH/SA) Height 2017-06-12 17:02:00 65 in [facility] (LUF/ELISABETH/SA) Weight Measured 2017-06-12 17:02:00 174.98 lbs [facility] (LUF/ELISABETH/SA) BMI (Body Mass 2017-06-12 17:02:[address] [facility] - Index) [facility] (LUF/ELISABETH/SA) Procedures Procedure Date / Time Performing Clinician Source Performed CT ABDOMEN PELVIS W 2020-02-16 02:52:29 Jamaal Trotter [facility] CONTRAST Medical Branch LIPASE 2020-02-16 02:01:00 Jamaal Trotter [facility] HEPATIC FUNCTION PANEL 2020-02-16 02:01:00 Jamaal Trotter [facility] ([id number]) (ALB,T.PRO,BILI Medical Branch T,BU/BC,ALT,AST,ALK PHOS) BASIC METABOLIC PANEL 2020-02-16 02:01:00 Jamaal Trotter [facility] (NA, K, CL, CO2, Medical Branch GLUCOSE, BUN, CREATININE, CA) CBC WITH DIFF 2020-02-16 02:01:00 Jamaal Trotter [facility] URINALYSIS 2020-02-16 02:01:00 Jamaal Trotter [facility] CONSENT/REFUSAL FOR 2020-02-06 22:17:29 Doctor Unassigned, No Un [facility] [place] [facility] Name Medical Branch XR KUB 2019-09-20 00:34:59 Annalisa Limon [facility] COMP. METABOLIC PANEL 2019-09-20 00:13:00 [id number] CBC WITH DIFFERENTIAL 2019-09-20 00:13:00 Annalisa Limon Un [facility] URINALYSIS 2019-09-20 00:13:00 Annalisa Limon [facility] NOTICE OF PRIVACY 2019-09-19 22:17:17 Doctor Unassigned, No Univ ersity [facility] PRACTICES Name Medical Branch CONSENT/REFUSAL FOR 2019-09-19 22:17:05 Doctor Unassigned, No Un iversity [facility] DIAGNOSIS AND TREATMENT Name Medical Branch CT ABDOMEN PELVIS W 2019-07-28 02:46:48 Sabi Berman [facility] CONTRAST Medical Branch LIPASE 2019-07-28 01:34:00 Berman, Sabi [facility] COMP. METABOLIC PANEL 2019-07-28 01:34:00 Sabi Berman [facility] ([id number]) [facility] CBC WITH DIFFERENTIAL 2019-07-28 01:34:[address] [facility] CONSENT/REFUSAL FOR 2019-07-28 00:45:36 Doctor Unassigned, No Un [facility] DIAGNOSIS AND TREATMENT Name Medical Branch Encounters Start End Encounter Admission Attending Care Care Encounter Source Date/Time Date/Time Type Type Clinicians Facility Department ID 2021-05-06 Emergency [facility] [id number] Univers 11:24:52 ity of [facility] 2021-05-06 Emergency [facility] [id number] Univers 10:10:15 ity of [facility] 2020-02-15 2020-02-16 Emergency Jamaal Trotter [facility] 1.2.840.114 [id number] Univers 20:25:00 00:23:00 T Kelsi [id number] i ty of [place] 4.2.7.2.686 [facility] [phone] [place] [address] [place] 2020-02-06 2020-02-06 Emergency Emmett [facility] 1.2.840.114 [id number] Univers 17:30:03 18:06:00 Jamaal Dolan [id number] i ty of [place] 4.2.7.2.686 [facility] [phone] [place] [address] [place] 2020-02-06 2020-02-06 Orders Doctor MAKAYLA 1.2.840.114 [id number] Univers 00:00:00 00:00:00 Only Unassigned, CHARLA [id number] ity of [place] [facility] 4.2.7.2.686 Kristian as [phone] [place] [address] Branch 2020-02-03 2020-02-03 Telephone Pob1, Acute [facility] 1.2.840.114 [id number] Univers 00:00:00 00:00:00 [facility] [id number] ity of [place] 4.2.7.2.686 Kristian as Professio [phone] Sc dical [facility] [address] Branch [address] 2020-01-19 2020-01-19 Urgent Pob1, Acute Care Clinic [facility] 1. 2.840.114 [id number] Univers 13:01:51 13:40:36 Gregoria Farrell [facility] [id number] ity of [place] 4.2.7.2.686 [facility] [phone] [address] Office [address] 2020-01-19 2020-01-19 Outpatient R [facility] [id number] Univers 13:00:00 13:00:00 [id number] ity of [facility] 2020-01-19 2020-01-19 Outpatient R [facility] [id number] Univers 13:00:00 13:00:00 ity of [facility] 2020-01-19 2020-01-19 Letter Doctor MAKAYLA 1.2.840.114 [id number] Univers 00:00:00 00:00:00 (Out) Unassigned, CHARLA 350.1.13.10 ity of [place] [facility] 4.2.7.2.686 Kristian as [phone] [address] 2020-01-09 2020-01-09 Outpatient R [facility] [id number] Univers 09:40:00 09:40:00 ity of [facility] 2020-01-09 2020-01-09 Outpatient R [facility] [id number] Univers 09:40:00 09:40:00 ity of [facility] 2019-09-19 2019-09-19 Emergency X [facility] ERT [id number] Univers 18:38:25 20:38:00 ABRAHANO ity of [facility] 2019-09-19 2019-09-19 Emergency [facility] 1.2.840.114 [id number] Univers 18:38:25 20:38:00 Annalisa [place] 350.1.13.10 ity of [place] 4.2.7.2.686 [place] [facility] [phone] [place] [address] [place] 2019-09-19 2019-09-19 Orders Doctor MAKAYLA 1.2.840.114 [id number] Univers 00:00:00 00:00:00 Only Unassigned, CHARLA 350.1.13.10 ity of [place] [facility] 4.2.7.2.686 Kristian as [phone] [facility] 009 Branch 2019-07-27 2019-07-27 Emergency Berman, MARY BETH [id number] Univers 18:49:37 21:53:00 Sabi Dolan 350.1.13.10 i ty [place] 4[place]2.7.2.686 [place] [phone] [facility] 084 Branch 2017-06-12 2017-06-12 STRAIN 1 RENNER, [facility] [id number] 16:57:00 19:55:00 [facility] Estefanía kes - FASCIA , [address] [facility] (LUF/LI ST, PATEL V/SA) [place] [address] Results Test Description Test Time Test Results Result Source Comments Comments CT ABDOMEN 2020-02-07 Impression: No acute Uni versity of PELVIS W 0 abnormalities evident. [place] [facility] CONTRAST 04:57:37 RL: 460 End of Report Br anch Ordering Physician: JAMAAL TROTTER History: Diarrhea. Perirectal abscess.. Technique: CT abdomen and pelvis with intravenous contrast. Thisexamination was performed according to ALARA principles. Comparison: May 26, 2019. Findings: The gallbladder is contracted and otherwise unremarkable. A calcifiedgranuloma of the liver is present. The spleen, pancreas, adrenal glands,and kidneys are unremarkable. Evaluation of the stomach is limited by lackof distention, but no gross gastric abnormalities are apparent. The urinary bladder is unremarkable in appearance. There is no evidence ofcolitis. A normal appendix is identified. There is no bowel obstruction.There is no free intraperitoneal fluid or free intraperitoneal air. No inflammatory changes are seen within the pelvic wall or includedperineum. However, the perineum is incompletely visualized. The includedlung bases are clear. The included bony structures are unremarkable. [facility], Radiant Results Inft User - 02/15/2020 11:58 PM CDTOrdering Physician: JAMAAL SMITHistory: Diarrhea. Perirectal abscess..Technique: CT abdomen and pelvis with intravenous contrast. Thisexamination was performed according to ALARA principles.Comparison: May 26, 2019.Findings: The gallbladder is contracted and otherwise unremarkable. A calcifiedgranuloma of the liver is present. The spleen, pancreas, adrenal glands,and kidneys are unremarkable. Evaluation of the stomach is limited by lackof distention, but no gross gastric abnormalities are apparent.The urinary bladder is unremarkable in appearance. There is no evidence ofcolitis. A normal appendix is identified. There is no bowel obstruction.There is no free intraperitoneal fluid or free intraperitoneal air.No inflammatory changes are seen within the pelvic wall or includedperineum. However, the perineum is incompletely visualized. The includedlung bases are clear. The included bony structures are unremarkable.IMPRESSIO NImpression: No acute abnormalities evident.RL: 460End of Report Basic Metabolic Panel (NA, K, CL, CO2, GLUCOSE, BUN, 2020-02 02:37:00 CREATININE, CA) Test Item Value Reference Range Interpretation Comme nts NA (test code = 8229746878) 138 mmol/L 135-145 K (test code = 0945140669) 3.8 mmol/L 3.5-5 CL (test code = 1073502516) 105 mmol/L 98-108 CO2 TOTAL (test code = 1634130361) 25 mmol/L 23-31 AGAP (test code = 4954418280) 2-16 BUN (test code = 7405650180) 11 mg/dL 7-23 GLUCOSE (test code = 7226706062) 111 mg/dL 70-110 H CREATININE (test code = 0.95 mg/dL 0.6-1.25 5791358931) CALCIUM (test code = 8673836615) 9.4 mg/dL 8.6-10.6 eGFR Calculation (Non- mL/min/1.73m2 Serbian) (test code = 2062795253) eGFR Calculation ( mL/min/1.73m2 Serbian) (test code = 0638528972) [place] (test code = EV[place]) Association of Glomerular Filtration Rate (GFR) and Staging of Kidney Disease* + +-------- + ------+| GFR (mL/min/1.73 m2) ?| With Kidney Damage ?| ?Without Kidney Damage+ +-- + +| ?>90 ?| ?Stage one ?| ? Normal ?+ +------- + -------+| ?60-89 ?| ?Stage two ?| ? Decreased GFR ? + +-------- + ------+| ?30-59 ?| ?Stage three ?| ? Stage three ? + +-------- + ------+| ?15-29 ?| ?Stage four ? | ? Stage four ?+ +------- + -------+| ?<15 (or dialysis) ? ?| ?Stage five ? | ? Stage five ?+ +------- + -------+ *Each stage assumes the associated GFR level has been in effect for at least three months. ?Stages 1 to 5, with or without kidney disease, indicate chronic kidney disease. Notes: Determination of stages one and two (with eGFR >59mL/min/1.73 m2) requires estimation of kidney damage for at least three months as defined by structural or functional abnormalities of the kidney, manifested by either:Pathological abnormalities or Markers of kidney damage (including abnormalities in the composition of the blood or urine or abnormalities in imaging tests). Lab Interpretation (test code = Abnormal 74669-8) [facility] (ALB, T.PRO, BILI T, BU/BC, ALT, AST, ALK PHOS)2020-02-16 02:37:00 Test Item Value Reference Range Interpretation Comments TOTAL BILI (test code = 5478257097) 0.2 mg/dL 0.1-1.1 BILI UNCON (test code = 4346880977) 0.3 mg/dL 0.1-1.1 BILI CONJ (test code = 2168359386) 0.0 mg/dL 0-0.3 T PROTEIN (test code = 4307179011) 7.4 g/dL 6.3-8.2 ALBUMIN (test code = 5410435427) 4.5 g/dL 3.5-5 ALK PHOS (test code = 7808224227) 70 U/L 34-122 ALTv (test code = 1742-6) 19 U/L 5-50 AST(SGOT) (test code = 9041094444) 22 U/L 13-40 Lab Interpretation (test code = Normal 63235-0) [facility] [id number] 02:37:00 Test Item Value Reference Range Interpretation Comments LIPASE (test code = 9082636856) 71 U/L 0-220 Lab Interpretation (test code = Normal 59230-7) [facility] Center[facility]inalysis2020-08-10 02:31:00 Test Item Value Reference Range Interpretation Comments APPEARANCE (test code = Clear Clear 4395670822) COLOR (test code = Yellow Yellow 4457326743) PH (test code = 4.8-8.0 2156843314) SP GRAVITY (test code = 1.003-1.030 8944727336) GLU U QUAL (test code = Normal Normal 1839517483) BLOOD (test code = Negative Negative 4126643471) KETONES (test code = 5 mg/dL Negative A 8846909863) PROTEIN (test code = Negative Negative 2887-8) UROBILIN (test code = 2.0 mg/dL Normal A 9606321492) BILIRUBIN (test code = Negative Negative 1205123226) NITRITE (test code = Negative Negative 7517993414) LEUK EMMANUEL (test code = Negative Negative 6985267603) RBC/HPF (test code = <1 See_Comment [Autom ated message] 8018750922) The system Hostway generated this result transmit clay reference range : 0 - 3 HPF. The refe rence range was not u sed to interpret th is result as normal/abnormal . WBC/HPF (test code = <1 See_Comment [Autom ated message] 6930519447) The system [employer] generated this result transmit clay reference range : 0 - 5 HPF. The refe rence range was not u sed to interpret th is result as normal/abnormal . BACTERIA (test code = Negative Negative 7250848424) MUCOUS (test code = Slight Negative LPF A 5762820789) SQ EPITH (test code = <1 HPF 3397724372) Lab Interpretation (test Abnormal code = 80771-1) [facility] with [id number] 02:23:00 Test Item Value Reference Range Interpretation Comments WBC (test code = See_Comment [Automated 9049-2) message] The [employer] stem which generated this result transmitted reference range : 4.20 - 10.70 10*3/?L. The reference range was not used to interpret this result as normal/abnormal . RBC (test code = See_Comment [Automated 789-8) message] The sy stem which generated this result transmitted reference range : 4.26 - 5.52 10*6/?L. The reference range was not used to interpret this result as normal/abnormal . HGB (test code = 14.7 g/dL 12.2-16.4 718-7) HCT (test code = 40.4 % 38.4-49.3 4544-3) MCV (test code = 85.6 fL 81.7-95.6 787-2) MCH (test code = 31.1 pg 26.1-32.7 785-6) MCHC (test code = 36.4 g/dL 31.2-35 H 786-4) RDW-SD (test code = 35.2 fL 38.5-51.6 L 14378-0) RDW-CV (test code = 11.3 % 12.1-15.4 L 788-0) PLT (test code = See_Comment [Automated 777-3) message] The sy stem which generated this result transmitted reference range : 150 - 328 10*3/ ?L. The reference r abhijit was not used to interpret this result as normal/abnormal . MPV (test code = 10.0 fL 9.8-13 42002-9) NRBC/100 WBC (test See_Comment [Automat ed code = 9050230710) message] The system which generated this result transmitted reference range : 0.0 - 10.0 /100 WBCs. The refer ence range was not u sed to interpret th is result as normal/abnormal . NRBC x10^3 (test code <0.01 See_Comment [Auto mated = 1300201335) message] The s ystem which generated this result transmitted reference range : 10*3/?L. The reference range was not used to interpret this result as normal/abnormal . GRAN MAT (NEUT) % 60.4 % (test code = 770-8) IMM GRAN % (test code 0.10 % = 0030142478) LYMPH % (test code = 32.6 % 736-9) MONO % (test code = 6.3 % 5905-5) EOS % (test code = 0.5 % 713-8) BASO % (test code = 0.1 % 706-2) GRAN MAT x10^3(ANC) 5.29 10*3/uL 1.99-6.95 (test code = 9124090548) IMM GRAN x10^3 (test <0.03 0-0.06 code = 7526057353) LYMPH x10^3 (test code 2.85 10*3/uL 1.09-3.23 = 731-0) MONO x10^3 (test code 0.55 10*3/uL 0.36-1.02 = 742-7) EOS x10^3 (test code = 0.04 10*3/uL 0.06-0.53 L 711-2) BASO x10^3 (test code <0.03 0.01-0.09 = 704-7) Lab Interpretation Abnormal (test code = 25346-3) [facility]inalysis2020-03-14 00:48:00 Test Item Value Reference Range Interpretation Comments APPEARANCE (test code = Clear Clear 2983474505) COLOR (test code = Straw Yellow A 3055989321) PH (test code = 4.8-8.0 4736351037) SP GRAVITY (test code = 1.003-1.030 6388310749) GLU U QUAL (test code = Normal Normal 8337592053) BLOOD (test code = Negative Negative 1280032637) KETONES (test code = Negative Negative 9405768751) PROTEIN (test code = Negative Negative 2887-8) UROBILIN (test code = Normal Normal 0841547360) BILIRUBIN (test code = Negative Negative 8244604621) NITRITE (test code = Negative Negative 2458301723) LEUK EMMANUEL (test code = Negative Negative 9063030233) RBC/HPF (test code = See_Comment [Autom ated message] 3453933900) The system [employer] generated this result transmitted ref erence range: 0 - 3 HP F. The reference range was not used to int erpret this result as normal/abnormal . WBC/HPF (test code = <1 See_Comment [Autom ated message] 5305993374) The system [employer] generated this result transmitted ref erence range: 0 - 5 HP F. The reference range was not used to int erpret this result as normal/abnormal . BACTERIA (test code = Negative Negative 5987252272) MUCOUS (test code = Slight Negative LPF A 8647911850) Lab Interpretation (test Abnormal code = 67691-1) [facility]. METABOLIC PANEL (47980)2019-09-20 00:48:00 Test Item Value Reference Range Interpretation Comments NA (test code = 141 mmol/L 135-145 4571004725) K (test code = 3.9 mmol/L 3.5-5 6593834305) CL (test code = 106 mmol/L 98-108 7358828625) CO2 TOTAL (test code = 25 mmol/L 23-31 7450976310) AGAP (test code = 2-16 7466620036) BUN (test code = 14 mg/dL 7-23 6732648514) GLUCOSE (test code = 101 mg/dL 70-110 5354099322) CREATININE (test code 1.03 mg/dL 0.6-1.25 = 7589219364) TOTAL BILI (test code 0.3 mg/dL 0.1-1.1 = 8101522576) CALCIUM (test code = 9.9 mg/dL 8.6-10.6 9480659065) T PROTEIN (test code = 6.8 g/dL 6.3-8.2 8922512959) ALBUMIN (test code = 4.7 g/dL 3.5-5 0115826039) ALK PHOS (test code = 63 U/L 34-122 9293418618) ALTv (test code = 20 U/L 5-50 1742-6) AST(SGOT) (test code = 20 U/L 13-40 9157605742) eGFR Calculation mL/min/1.73m2 (Non-) (test code = 7056487390) eGFR Calculation mL/min/1.73m2 () (test code = 5732585076) [place] (test code = [place]) Association of Glomerular Filtration Rate (GFR) and Staging of Kidney Disease* + -+ + ---+| GFR (mL/min/1.73 m2) ?| With Kidney Damage ?| ?Without Kidney Damage+ -------+ ------+ ---------+| ?>90 ?| ?Stage one ?| ? Normal ?+ --+ -+ ----+| ?60-89 ?| ?Stage two ?| ? Decreased GFR ? + -+ + ---+| ?30-59 ?| ?Stage three ?| ? Stage three ? + -+ + ---+| ?15-29 ?| ?Stage four ? | ? Stage four ?+ --+ -+ ----+| ?<15 (or dialysis) ? ?| ?Stage five ? | ? Stage five ?+ --+ -+ ----+ *Each stage assumes the associated GFR level has been in effect for at least three months. ?Stages 1 to 5, with or without kidney disease, indicate chronic kidney disease. Notes: Determination of stages one and two (with eGFR >59mL/min/1.73 m2) requires estimation of kidney damage for at least three months as defined by structural or functional abnormalities of the kidney, manifested by either:Pathological abnormalities or Markers of kidney damage (including abnormalities in the composition of the blood or urine or abnormalities in imaging tests). [facility] WITH [id number] 00:31:00 Test Item Value Reference Range Interpretation Comments WBC (test code = See_Comment [Automated 4721-2) message] The sy stem which generated this result transmitted reference range : 4.20 - 10.70 10*3/?L. The reference range was not used to interpret this result as normal/abnormal . RBC (test code = See_Comment [Automated 006-8) message] The sy stem which generated this result transmitted reference range : 4.26 - 5.52 10*6/?L. The reference range was not used to interpret this result as normal/abnormal . HGB (test code = 15.4 g/dL 12.2-16.4 718-7) HCT (test code = 43.3 % 38.4-49.3 4544-3) MCV (test code = 86.9 fL 81.7-95.6 787-2) MCH (test code = 30.9 pg 26.1-32.7 785-6) MCHC (test code = 35.6 g/dL 31.2-35 H 786-4) RDW-SD (test code = 38.2 fL 38.5-51.6 L 70245-0) RDW-CV (test code = 12.0 % 12.1-15.4 L 788-0) PLT (test code = See_Comment [Automated 777-3) message] The sy stem which generated this result transmitted reference range : 150 - 328 10*3/ ?L. The reference r abhijit was not used to interpret this result as normal/abnormal . MPV (test code = 10.0 fL 9.8-13 71551-6) NRBC/100 WBC (test See_Comment [Automat ed code = 3948272453) message] The system which generated this result transmitted reference range : 0.0 - 10.0 /100 WBCs. The refer ence range was not u sed to interpret th is result as normal/abnormal . NRBC x10^3 (test code <0.01 See_Comment [Auto mated = 3504668495) message] The s ystem which generated this result transmitted reference range : 10*3/?L. The reference range was not used to interpret this result as normal/abnormal . GRAN MAT (NEUT) % 60.6 % (test code = 770-8) IMM GRAN % (test code 0.40 % = 6425980462) LYMPH % (test code = 31.9 % 736-9) MONO % (test code = 6.1 % 5905-5) EOS % (test code = 0.8 % 713-8) BASO % (test code = 0.2 % 706-2) GRAN MAT x10^3(ANC) 5.02 10*3/uL 1.99-6.95 (test code = 6412927804) IMM GRAN x10^3 (test 0.03 10*3/uL 0-0.06 code = 2767749563) LYMPH x10^3 (test code 2.65 10*3/uL 1.09-3.23 = 731-0) MONO x10^3 (test code 0.51 10*3/uL 0.36-1.02 = 742-7) EOS x10^3 (test code = 0.07 10*3/uL 0.06-0.53 711-2) BASO x10^3 (test code <0.03 0.01-0.09 = 704-7) Lab Interpretation Abnormal (test code = 89852-7) [facility] W [id number] 02:58:35Impression: 1. Fluid-filled, nondilated distal small bowel loops with mucosal foldthickening, suggestive of enteritis.2. Normal appendix. No free air or free fluid. RL: 2824AFC: [id number] End of Report Exam: CT Abdomen and Pelvis With Contrast, 07/27/2019 7:30 PM. Ordering Physician: SABI BERMAN. History: Abdominal pain. Technique: CT abdomen and pelvis was obtained with intravenous contrast. CT was performed according to ALARA (As Low As Reasonably Achievable). Comparison: None. Findings: CT Abdomen:Lung bases are clear. Heart size is normal. Osseous structures areunremarkable. Gallbladder is contracted. Calcification in the liver maybe related toprior granulomatous disease. Minute hypodense hepatic lesions are noted,measuring less than 5 mm and too small to characterize. Spleen, pancreas,and adrenal glands are normal. There is no pancreatic or biliary ductdilatation. Kidneys are symmetric in size, enhancement, and contrast excretion. Thereis no hydronephrosis or hydroureter. There is no free air or free fluid. There is no abdominal adenopathy. Stomach is unremarkable. There is mild gaseous distention of small bowelloops. Fluid-filled, nondilated small bowel loops are noted. There isdistal small bowel mucosal fold thickening, in volving the terminal ileum.There is no evidence of bowel obstruction. Appendix is normal. CT Pelvis:Pelvic small bowel loops are unremarkable. Urinary bladder is unremarkable. Prostate and seminal vesicles are notenlarged. There is no pelvic free fluid. ?There is no pelvic adenopathy. Osseous structures are unremarkable. [facility], Radiant Results Inft User - 07/27/2019 8:59 PM CSTExam: CT Abdomen and Pelvis With Contrast, 07/27/2019 7:30 PM.Ordering Physician: SABI BERMAN.History: Abdominal pain.Technique: CT abdomen and pelvis was obtained with intravenous contrast. CT was performed according to ALARA (As Low As Reasonably Achievable).Comparison: None.Findings: CT Abdomen:Lung bases are clear. Heart size is normal. Osseous structures areunremarkable. Gallbladder is contracted. Calcification in the liver may be related toprior granulomatous disease. Minute hypodense hepatic lesions are noted,measuring less than 5 mm and too small to characterize. Spleen, pancreas,and adrenal glands are normal. There is no pancreatic or biliary ductdilatation.Kidneys are symmetric in size, enhancement, and contrast excretion. Thereis no hydronephrosis or hydroureter.There is no free air or free fluid. There isno abdominal adenopathy.Stomach is unremarkable. There is mild gaseous distention of small bowelloops. Fluid-filled, nondilated small bowel loops are noted. There isdistal small bowel mucosal fold thickening, involving the terminal ileum.There is no evidence of bowel obstruction. Appendix is normal.CTPelvis:Pelvic small bowel loops are unremarkable.Urinary bladder is unremarkable. Prostate and seminal vesicles are notenlarged.There is no pelvic free fluid. There is no pelvic adenopathy.Osseous structures are unremarkable. IMPRESSIONImpression: 1. Fluid- filled, nondilated distal small bowel loops with mucosal foldthickening, suggestive of enteritis.2. Normal appendix. No free air or free fluid.RL: [id number]: [id number] of Report [facility]. METABOLIC PANEL (30235)2019-07-28 02:28:00 Test Item Value Reference Range Interpretation Comments NA (test code = 140 mmol/L 135-145 4797146389) K (test code = 3.8 mmol/L 3.5-5 9316683645) CL (test code = 107 mmol/L 98-108 8067259305) CO2 TOTAL (test code = 24 mmol/L 23-31 7689521083) AGAP (test code = 2-16 9754257463) BUN (test code = 14 mg/dL 7-23 3249436568) GLUCOSE (test code = 119 mg/dL 70-110 H 3261418876) CREATININE (test code = 1.03 mg/dL 0.6-1.25 2994826508) TOTAL BILI (test code = 0.2 mg/dL 0.1-1.5 0344892501) CALCIUM (test code = 9.6 mg/dL 8.6-10.6 7619907890) T PROTEIN (test code = 7.8 g/dL 6.3-8.2 1095739084) ALBUMIN (test code = 4.9 g/dL 3.5-5 2261929991) ALK PHOS (test code = 69 U/L 34-122 5436238393) ALTv (test code = 47 U/L 5-50 1742-6) AST(SGOT) (test code = 30 U/L 13-40 9289392013) eGFR Calculation mL/min/1.73m2 (Non-) (test code = 7275769060) eGFR Calculation mL/min/1.73m2 () (test code = 9356895869) EVERTON (test code = EVERTON) Association of Glomerular Filtration Rate (GFR) and Staging of Kidney Disease* + --+ --+ ------+| GFR (mL/min/1.73 m2) ?| With Kidney Damage ?| ?Without Kidney Damage+ --------+ --------+ +| ?>90 ?| ?Stage one ?| ? Normal ?+ ---+ ---+ -------+| ?60-89 ?| ?Stage two ?| ? Decreased GFR ? + --+ --+ ------+| ?30-59 ?| ?Stage three ?| ? Stage three ? + --+ --+ ------+| ?15-29 ?| ?Stage four ? | ? Stage four ?+ ---+ ---+ -------+| ?<15 (or dialysis) ? ?| ?Stage five ? | ? Stage five ?+ ---+ ---+ -------+ *Each stage assumes the associated GFR level has been in effect for at least three months. ?Stages 1 to 5, with or without kidney disease, indicate chronic kidney disease. Notes: Determination of stages one and two (with eGFR >59mL/min/1.73 m2) requires estimation of kidney damage for at least three months as defined by structural or functional abnormalities of the kidney, manifested by either:Pathological abnormalities or Markers of kidney damage (including abnormalities in the composition of the blood or urine or abnormalities in imaging tests). Lab Interpretation Abnormal (test code = 65692-7) [facility] Test Item Value Reference Range Interpretation Comments LIPASE (test code = 0790787472) 103 U/L 0-220 Lab Interpretation (test code = Normal 64488-4) [facility] WITH [id number] 02:09:00 Test Item Value Reference Range Interpretation Comments WBC (test code = See_Comment [Automated 6690-2) message] The sy stem which generated this result transmitted reference range : 4.20 - 10.70 10*3/?L. The reference range was not used to interpret this result as normal/abnormal . RBC (test code = See_Comment [Automated 789-8) message] The sy stem which generated this result transmitted reference range : 4.26 - 5.52 10*6/?L. The reference range was not used to interpret this result as normal/abnormal . HGB (test code = 16.7 g/dL 12.2-16.4 H 718-7) HCT (test code = 44.8 % 38.4-49.3 4544-3) MCV (test code = 84.2 fL 81.7-95.6 787-2) MCH (test code = 31.4 pg 26.1-32.7 785-6) MCHC (test code = 37.3 g/dL 31.2-35 H 786-4) RDW-SD (test code = 35.8 fL 38.5-51.6 L 46740-6) RDW-CV (test code = 11.8 % 12.1-15.4 L 788-0) PLT (test code = See_Comment [Automated 777-3) message] The sy stem which generated this result transmitted reference range : 150 - 328 10*3/ ?L. The reference r abhijit was not used to interpret this result as normal/abnormal . MPV (test code = 10.2 fL 9.8-13 18153-6) NRBC/100 WBC (test See_Comment [Automat ed code = 0811397987) message] The system which generated this result transmitted reference range : 0.0 - 10.0 /100 WBCs. The refer ence range was not u sed to interpret th is result as normal/abnormal . NRBC x10^3 (test code <0.01 See_Comment [Auto mated = 3928216066) message] The s ystem which generated this result transmitted reference range : 10*3/?L. The reference range was not used to interpret this result as normal/abnormal . GRAN MAT (NEUT) % 59.2 % (test code = 770-8) IMM GRAN % (test code 0.20 % = 7690056399) LYMPH % (test code = 31.1 % 736-9) MONO % (test code = 8.5 % 5905-5) EOS % (test code = 0.8 % 713-8) BASO % (test code = 0.2 % 706-2) GRAN MAT x10^3(ANC) 5.01 10*3/uL 1.99-6.95 (test code = 2692591208) IMM GRAN x10^3 (test <0.03 0-0.06 code = 2993739312) LYMPH x10^3 (test code 2.63 10*3/uL 1.09-3.23 = 731-0) MONO x10^3 (test code 0.72 10*3/uL 0.36-1.02 = 742-7) EOS x10^3 (test code = 0.07 10*3/uL 0.06-0.53 711-2) BASO x10^3 (test code <0.03 0.01-0.09 = 704-7) Lab Interpretation Abnormal (test code = 15572-9) [facility] [id number] 19:08:00NPO 4 hours. Do not withhold medsProcedure: CT ABDOMEN/PELVIS W/O CONTRASTExam Date: 06/12/2017 5:36 PMOrdering Provider: BLANCA Leighical Indication: low abd painComparison: NoneTechnique: Using a helical scanner, sequential axial imaging of the abdomen andpelvis was obtained without the administration of oral or IV contrast. The examextended from the level of the lung bases superiorly to the level of the pubicsymphysisinferiorly. 2-D sagittal and coronal reconstructed images wereobtained. [...] nohepatic masses. Calcified granulomas in the liver. Nointrahepatic ductaldilatation.The gallbladder is normal in size and density. There is no evidence ofcholelithiasis or cholecystitis by CT criteria.The spleen is normal in size and density. There are nointrinsic splenic masses.Calcified granulomas in the spleen. There [...] and diameter. There is no aneurysm.The IVC isnormal in size and location.There is no lymphadenopathy [...] MD 06/12/20177:01 PMDictated By: ENZO CABRERA.Date: 06/12/2017 19:[id number] 18:51:00 Test Item Value Reference Range Interpretation Comments Glucose (test code 101 mg/dl 75-110 = GLU) BUN (test code = 9.0 mg/dl 6.0-17.0 BUN) Creatinine (test 1.0 mg/dl 0.4-1.2 code = CREA) Sodium (test code = 141 mmol/l 137-145 NA) Potassium (test 3.8 mmol/l 3.5-5.0 code = K) Chloride (test code 106 mmol/l 98-107 = CL) CO2 (test code = 24 mmol/l 22-30 CO2) Calcium (test code 9.3 mg/dl 8.4-10.2 = CALC) T Protein (test 7.0 gm/dl 5.1-8.7 code = TP) Albumin (test code 4.4 gm/dl 3.5-4.6 = ALB) A/G Ratio (test 1.7 % 1.1-2.2 code = AGRAT) AST (SGOT) (test 20 U/L 11-36 code = AST) ALT (SGPT) (test 35 U/L 11-40 code = ALT) Alkaline Phos (test 73 U/L 47-114 code = ALKP) Total Bilirubin 0.3 mg/dl 0.2-1.2 (test code = TBIL) Globulin (test code 2.6 gm/dl 2.3-3.5 = GLOBU) Calcium, Corrected 9.0 mg/dl 8.4-10.2 Various f ormulas exist (test code = for corrected s toney CALCCORR) calcium results , each yielding differ ent values. This corrected resul t was based on the fo rmula: Corrected Calci um = SerumCalcium + [0.8 * ( 4 - SerumAlbu min)] EGFR if >60 Serbian (test code mL/min/1.73m\\ = EGFRAA) S\\2 EGFR if Non- >60 Estimate d Glomerular Serbian (test code mL/min/1.73m\\ Filtrat ion Rate (eGFR) = EGFRNA) S\\2 Reference Inter vals Decision Points for 18 years and older and average body ma ss: >= 60 Does not exc lude kidney disease. 30 - 59 Suggests modera te chronic kidney disease and indicat es the need for furthe r investigation including asses sment of proteinuria and cardiovascular factors. < 30 Usually in dicates a need for refe rral for assessment and management of c hronic kidney failure. Anion Gap (test 11 code = GAP) CBC WITH AUTO [id number] 18:02:00 Test Item Value Reference Range Interpretation Comments WBC (test code = WBC) 8.43 10\\S\\3/ul 4.80-10.80 RBC (test code = RBC) 4.97 10\\S\\6/ul 4.70-6.10 Hemoglobin (test code = HGB) 15.5 gm/dl 14.0-18.0 Hematocrit (test code = HCT) 41.6 % 42.0-50.0 L MCV (test code = MCV) 83.7 fL 80.0-94.0 MCH (test code = MCH) 31.2 pg 27.0-31.0 H MCHC (test code = MCHC) 37.3 gm/dl 33.0-37.0 H RDW (test code = RDWVC) 11.5 % 11.5-14.5 Platelet (test code = PLT) 234 10\\S\\3/ul 130-400 MPV (test code = MPV) 10.0 [...] = 0 /100WBC 0-2 NRBC_AUTO) URINALYSIS WITHOUT [id number] 17:32:00 Test Item Value Reference Range Interpretation Comments Color (test code = UCOLR) Yellow Lt. Yellow A Clarity (test code = UCLAR) Clear Glucose (test code = UGLUC) Negative Negative N Bilirubin (test code = UBILI) Negative Negative N Ketones (test code = UKET) Negative Negative N Specific [place] (test code = 1.015 1.005-1.030 A USPGR) Blood (test code = UBLD) Negative Negative N PH (test code = UPH) 7.0 4.5-8.0 A Protein (test code = UPROT) Negative Negative N Urobilinogen (test code = U UROB) 0.2 E.U./dL >0.2 A Nitrite (test code = UNITR) Negative Negative N Leukocyte Esterase (test code = Negative Negative N ULEUK)"
[2021-06-16] MEDS ORDERED: KETOROLAC 30 MG/ML INJ ONE (14:33)
[2021-06-16 16:10] LABS: SARS-COV-2 RT PCR POSITIVE (NEGATIVE)
--- NOTE | 2021-06-16 16:21 | ER ---
Nurse's Notes [facility] Name: Sunny Angel Age: 30 yrs Sex: Male : 1990 Arrival Date: 06/16/2021 Time: 13:59 Bed 7 Private MD: Diagnosis: Coronavirus infection, unspecified Presentation: 06/16 14:10 Chief complaint: Patient states: body aches, subjective fever and chills that began 2 ss days ago. Coronavirus screen: Client denies travel out of the [place] in the last 14 days. Ebola Screen: Patient denies exposure to infectious person. Patient denies travel to an Ebola-affected area in the 21 days before illness onset. Initial Sepsis Screen: Does the patient meet any 2 criteria? No. Patient's initial sepsis screen is negative. Does the patient have a suspected source of infection? No. Patient's initial sepsis screen is negative. Risk Assessment: Do you want to hurt yourself or someone else? Patient reports no desire to harm self or others. Onset of symptoms was June 15, 2021. 14:10 Method Of Arrival: Ambulatory ss 14:10 Acuity: GILBERT 4 ss Historical: - Allergies: 14:11 Latex, Natural Rubber; ss 14:11 SEAFOOD; ss - Home Meds: 14:11 "supposed to take sertraline" [Active]; ss - PMHx: 14:11 Depressive disorder; ss - PSHx: 14:11 Oral sx; ss - Immunization history:: Client reports having NOT received the Covid vaccine. - Social history:: Smoking status: Patient reports the use of cigarette tobacco products, smokes one-half pack cigarettes per day. Screenin:21 Abuse screen: Denies threats or abuse. Nutritional screening: No deficits noted. al4 Tuberculosis screening: No symptoms or risk factors identified. 16:40 Fall Risk None identified. al4 Assessment: 14:11 Reassessment: provider at bedside at this time. tw2 14:17 General: Appears in no apparent distress. uncomfortable, Behavior is calm, cooperative, al4 appropriate for age. Pain: Complains of pain in generalized all over body Pain currently is 9 out of 10 on a pain scale. Quality of pain is described as burning, pressure, Pain began 2-3 days ago. Pain:. Neuro: Level of Consciousness is awake, alert, obeys commands, Oriented to person, place, time, situation, Appropriate for age. Cardiovascular: Heart tones present Capillary refill < 3 seconds Patient's skin is warm and dry. Chest pain is denied. Respiratory: Reports cough that is being controlled by cough medicine patient is taking at home Airway is patent Respiratory effort is even, unlabored, Respiratory pattern is regular, symmetrical, Breath sounds are clear bilaterally. GI: No deficits noted. : No deficits noted. EENT: No deficits noted. Derm: No deficits noted. Musculoskeletal: No deficits noted. 15:19 Reassessment: Patient and/or family updated on plan of care and expected duration. Pain al4 level reassessed. Patient is alert, oriented x 3, equal unlabored respirations, skin warm/dry/pink. Patient states feeling better. Patient states symptoms have improved. 16:18 Reassessment: Patient and/or family updated on plan of care and expected duration. Pain al4 level reassessed. Patient is alert, oriented x 3, equal unlabored respirations, skin warm/dry/pink. Vital Signs: 14:06 BP 109 / 84; Pulse 93; Resp 18 S; Temp 98.4; Pulse Ox 97% ; Pain 9/10; al4 14:10 Resp 18; Weight 79.38 kg; Height 5 ft. 4 in. (162.56 cm); Pain 9/10; ss 15:17 BP 109 / 63; Pulse 77; Resp 17; Pulse Ox 95% on R/A; tw2 16:15 BP 101 / 63; Pulse 69; Resp 18; Pulse Ox 94% ; al4 14:10 Body Mass Index 30.04 (79.38 kg, 162.56 cm) ED Course: 13:59 Patient arrived in ED. ds1 14:04 Casey Castaneda PA is PHCP. m 14:04 Annia Bustamante MD is Attending Physician. [facility] 14:04 Allen Lind is Primary Nurse. al4 14:11 Triage completed. ss 14:11 Arm band placed on right wrist. ss 14:24 Bed in low position. Call light in reach. Side rails up X2. Pulse ox on. NIBP on. Door al4 closed. Noise minimized. Warm blanket given. 14:45 Strep Sent. al4 14:45 Flu Sent. al4 16:38 No provider procedures requiring assistance completed. Patient did not have IV access al4 during this emergency room visit. Administered Medications: 14:45 Drug: Ketorolac 30 mg Route: IM; Site: right deltoid; al4 15:30 Follow up: Response: No adverse reaction al4 Outcome: 16:20 Discharge ordered by MD. nam 16:38 Discharged to home ambulatory. al4 16:38 Condition: stable 16:38 Discharge instructions given to patient, Instructed on discharge instructions, follow up and referral plans. medication usage, Demonstrated understanding of instructions, follow-up care, medications. 16:41 Patient left the ED. al4 Signatures: Casey Castaneda PA PA jmm Sanford, Demi ds1 Gracia Landeros RN RN ss Montserrta Guillermo RN RN tw2 Allen Lind al4 Corrections: (The following items were deleted from the chart) 14:24 14:06 BP 109 / 84; Pulse 93bpm; Resp 18bpm; Spontaneous; Pulse Ox 97%; Pain 9/10; al4 al4 14:30 14:17 Respiratory: Airway is patent Respiratory effort is even, unlabored, Respiratory al4 pattern is regular, symmetrical, Breath sounds are clear bilaterally. al4 15:25 14:48 SARS-COV-2 RT PCR+MOL.LAB.BRZ drawn and sent. al4 EDMS 15:25 14:49 Influenza Screen (A drawn and sent. al4 EDMS 16:41 16:40 Response: No adverse reaction al4 al4
--- NOTE | 2021-06-16 16:21 | EDPHYS ---
Physician Documentation [facility] Name: Sunny Angel Age: 30 yrs Sex: Male : 1990 Arrival Date: 06/16/2021 Time: 13:59 Bed 7 Private MD: RUBÉN Physician Annia Bustamante HPI: 06/16 16:15 This 30 yrs old Male presents to ER via Ambulatory with complaints of Body aches, Fever.jmm 16:15 Onset: The symptoms/episode began/occurred gradually, 3 day(s) ago. Modifying factors: jmm The symptoms are alleviated by nothing. the symptoms are aggravated by nothing. Associated signs and symptoms: Pertinent positives: fever, sore throat. The patient has not experienced similar symptoms in the past. 30-year-old male with a history of depression the presents emerged part with complaints of sore throat, cough, body aches beginning approximately 3 days ago. Patient states also having right lower back pain. Denies vomiting or diarrhea. Patient is not immunized for coronavirus.. Historical: - Allergies: 14:11 Latex, Natural Rubber; ss 14:11 SEAFOOD; ss - Home Meds: 14:11 "supposed to take sertraline" [Active]; ss - PMHx: 14:11 Depressive disorder; ss - PSHx: 14:11 Oral sx; ss - Immunization history:: Client reports having NOT received the Covid vaccine. - Social history:: Smoking status: Patient reports the use of cigarette tobacco products, smokes one-half pack cigarettes per day. ROS: 16:15 Constitutional: Positive for body aches, fever. jmm 16:15 Respiratory: Positive for cough. 16:15 Abdomen/GI: Negative for nausea and vomiting, diarrhea. 16:15 All other systems are negative. Exam: 16:15 Constitutional: This is a well developed, well nourished patient who is awake, alert, jmm and in no acute distress. Head/Face: atraumatic. Eyes: EOMI, no conjunctival erythema appreciated ENT: Moist Mucus Membranes Neck: Trachea midline, Supple Chest/axilla: Normal chest wall appearance and motion. Cardiovascular: Regular rate and rhythm. No edema appreciated Respiratory: Normal respirations, no respiratory distress appreciated Abdomen/GI: Non distended, soft Back: Normal ROM Skin: General appearance color normal MS/ Extremity: Moves all extremities, no obvious deformities appreciated, no edema noted to the lower extremities Neuro: Awake and alert, normal gait Psych: Behavior is normal, Mood is normal, Patient is cooperative and pleasant Vital Signs: 14:06 BP 109 / 84; Pulse 93; Resp 18 S; Temp 98.4; Pulse Ox 97% ; Pain 9/10; al4 14:10 Resp 18; Weight 79.38 kg; Height 5 ft. 4 in. (162.56 cm); Pain 9/10; ss 15:17 BP 109 / 63; Pulse 77; Resp 17; Pulse Ox 95% on R/A; tw2 16:15 BP 101 / 63; Pulse 69; Resp 18; Pulse Ox 94% ; al4 14:10 Body Mass Index 30.04 (79.38 kg, 162.56 cm) ss MDM: 14:28 Patient medically screened. [facility] 16:15 Data reviewed: vital signs, nurses notes. Counseling: I had a detailed discussion with cyril the patient and/or guardian regarding: the historical points, exam findings, and any diagnostic results supporting the discharge/admit diagnosis, lab results, radiology results, the need for outpatient follow up, to return to the emergency department if symptoms worsen or persist or if there are any questions or concerns that arise at home. ED course: Patient is alert and non toxic in appearance in the ED. No signs of resp distress. Advised to follow up with pcp and otherwise given strict return precautions. Patient understood and agrees with the plan of care. . 06/16 14:29 Order name: Flu [facility] 06/16 14:29 Order name: Strep; Complete Time: 15:36 [facility] 06/16 15:03 Order name: Throat Culture [facility] 06/16 15:25 Order name: COVID-19/FLU A+B; Complete Time: 16:22 EDND Administered Medications: 14:45 Drug: Ketorolac 30 mg Route: IM; Site: right deltoid; al4 15:30 Follow up: Response: No adverse reaction al4 Disposition: 06/17 07:51 Co-signature as Attending Physician, Annia Bustamante MD I agree with the assessment and sp3 plan of care. Disposition Summary: 06/16/21 16:20 Discharge Ordered Location: Home [facility] Condition: Stable [facility] Diagnosis - Coronavirus infection, unspecified [facility] Followup: jmm - With: Private Physician - When: 2 - 3 days - Reason: Recheck today's complaints, Continuance of care, Re-evaluation by your physician Discharge Instructions: - Discharge Summary Sheet cyril - COVID-19 [facility] Forms: - Medication Reconciliation Form [facility] - Thank You Letter cyril - Antibiotic Education [facility] - Prescription Opioid Use [facility] Prescriptions: - Ibuprofen 800 mg Oral Tablet - take 1 tablet by ORAL route every 8 hours As needed take with food; 30 tablet; [facility] Refills: 0, Product Selection Permitted - promethazine-DM - take 10 milliliter by ORAL route every 6 hours; 200 milliliter; Refills: 0, [facility] Product Selection Permitted Signatures: Dispatcher [employer] EDND Casey Castaneda PA PA jmm Smirch, Shelby, RN RN ss Annia Bustamante MD MD sp3 Allen Lind Corrections: (The following items were deleted from the chart) 06/16 15:25 14:29 Influenza Screen (A ordered. EDMS EDMS 15:25 14:29 SARS-COV-2 RT PCR+MOL.LAB.BRZ ordered. EDMS EDMS
[2021-06-16 16:46] VITALS: TEMP 98.4
[2021-06-16 16:50] VITALS: BP 101/63; O2SAT 94
== END 2021-06-16 16:41 | disposition home or self-care (01) ==
LOC: ER 13:53
DX: U07.1 COVID-19 (principal); Z91.040 Latex allergy status; Z91.013 Allergy to seafood
CPT/HCPCS: 87070; 87081; 0240U; 96372; 99283

== ENCOUNTER 2021-06-29 09:19 | Emergency (ER) | payer OTHER ==
--- OUTSIDE RECORDS SUMMARY | 2021-06-29 09:24 | XMS REPORT | Continuity of Care Document ---
:1990 Author Organization [facility] t Address [facility] [place] [address] Care Team Providers Name Role Phone Mckenna ROGERS JR Primary Care Physician Unavailable UNKNOWN Attending Clinician Unavailable Rose Marie DAVISP, T Attending Clinician Emmett DAVISP Attending Clinician Doctor Unassigned, Name Attending Clinician Unavailable Po, Care Clinic Attending Clinician Unavailable Tena DAVISP Attending Clinician MARSHA F Attending Clinician Unavailable Marsha DAVISP, F Attending Clinician Singer RAJPUT Attending Clinician ZURDO Attending Clinician Unavailable Manoj LIMON Admitting Clinician Unavailable RENNER Admitting Clinician Unavailable Payers Payer Name Policy Type Policy Number Effective Date Expiration Date S ourmerritt [employer] [place] - [id number] 2019 OUT OF STATE 00:00:00 FORMERLY [facility] [id number] 2017 CHOICE MEDICAID 00:00:00 Problems Condition Condition Condition Status [...] rs active active ity of problems problems [facility] Allergies, Adverse Reactions, Alerts Allergy Allergy Status [...] 2002-10-17 Smoker Univer sity of use 00:00:00 [facility] Exposure to Not sure [facility] SARS-CoV-2 (event) [facility] Sex Assigned At Universit y of [facility] Tobacco use and 2020-02-06 2020-02-06 Never used Universit y of exposure 00:00:00 00:00:00 [facility] Cigarettes smoked 2020-02-06 2020-02-06 Univers ity of current (pack per 00:00:00 00:00:00 ) - Reported Branch Cigarette 2020-02-06 2020-02-06 University of pack-years 00:00:00 00:00:00 [facility] Alcohol intake 2020-02-06 2020-02-06 Current University of 00:00:00 00:00:00 non-drinker of [facility] alcohol Branch (finding) Smoking Status Start Date Stop Date Source Heavy tobacco smoker [facility] (LUF/ELISABETH/SA) Current every day smoker 2020-02-06 00:00:00 Uni [facility] [place] [facility] [place] Medications Ordered Filled Start Stop Current Ordering Indication Dosage Frequency Signature Comments Components Source Medication Medication Date Date Medication? Clinician (SIG) Name Name ondansetron 2019- No 4mg 4 mg, Slow Univers (ZOFRAN 02-15 IV Push, ity of (PF)) 04:37: 04:37 ONCE, 1 [place] injection 4 00 :00 dose, [facility] Med [...] No 120mL 120 mL, Unive rs (OMNIPAQUE 02-1510 Intravenou it y of 350 03:00: 03:00 s, ONCE, 1 [place] BULK-150 00 :00 dose, Sun Medica l mL) 02/15/20 at [place] injection 2200, 120 mL Routine hydrocortis Yes [id number] Insert Univers one 8-10 into ity of (ANUSOL-HC) 00:00: rectum 2 [place] 2.5 % 00 (two) Medical rectal times Branch cream daily. cephALEXin 2020- No [id number] 500mg Take 1 Univers (KEFLEX) 02-05 capsule by ity of 500 mg 00:00: 04:59 mouth 4 [place] capsule 00 :00 (four) Medical times Branch daily for 7 days. benzonatate 2019- 2020- No [id number] 100mg Take 1 Univers (TESSALON 01-1824 capsule by ity of [place]) 100 00:00: 04:59 mouth 3 [place] mg capsule 00 :00 (three) Medica l times Branch daily as needed for Cough for up to 10 days. doxycycline 2019- 2020- No [id number] 100mg Take 1 Univers hyclate 100 01-18-21 [...] mg 09/19/19 at Branch 2115, [place] morpHINE 2019-2019- No 4mg 4 mg, Slow Un lawrence [...] 09/19/19 at 1800, [place] docusate 2019-2019- No [id number] 100mg Take 1 U nivers 100 mg 09-18 capsule by ity of capsule 00:00: 04:59 mouth [place] 00 :00 daily for Medical 7 days. Branch dicyclomine 2019-0 2019- No [id number] 20mg Take 1 Univers 20 mg 09-18 tablet by ity of tablet 00:00: 04:59 mouth 4 [place] 00 :00 (four) Medical times Branch daily for 7 days. polyethlene 2019- 2020- No [id number] 17g Take 17 g Univers glycol 09-1818 by mouth ity of powder 00:00: 04:59 daily for [place] packet 00 :00 4 days. Medical Branch iohexol 2019- 2020- No 120mL 120 mL, Unive rs (OMNIPAQUE 120 -20 Intravenou it y of 350 03:00: 02:41 s, ONCE, 1 [place] BULK-100 00 :00 dose, Sun Medica l mL) 07/27/19 at Branch injection 2100, 120 mL Routine dicyclomine 2020-0 Yes 10mg 10 mg, Univ ers (BENTYL) 1-20 Oral, QID, ity o f capsule 10 02:00: First dose [place] mg 00 on [facility] 07/27/19 at Branch 2000, Until Discontinu ed, Routine dicyclomine 2020-0 Yes [id number] 10mg Take 1 Univers (BENTYL) 10 1-19 capsule by it y of mg capsule 00:00: mouth [place] 00 every 8 Medical (eight) Branch hours as needed for Abdominal pain. ondansetron 2020-0 Yes [id number] 4mg Take 1 Univers 4 mg 1-19 tablet by ity of disintegrat 00:00: mouth [place] ing tablet 00 every 8 Medica l (eight) Branch hours as needed for Nausea and Vomiting (N/V). methylPREDN 2020-0 Yes [id number] Take by Univers ISolone 1-19 mouth ity of (MEDROL, 00:00: SEE-INSTRU Kristian as JENNY,) 4 mg 00 CTIONS. Medica l tablets follow Branch package directions dicyclomine 2020-0 Yes [id number] 10mg Take 1 Univers (BENTYL) 10 1-19 capsule by it y of mg capsule 00:00: mouth [place] 00 every 8 Medical (eight) Branch hours as needed for Abdominal pain. ondansetron 2020-0 Yes [id number] 4mg Take 1 Univers 4 mg 1-19 tablet by ity of disintegrat 00:00: mouth [place] ing tablet 00 every 8 Medica l (eight) Branch hours as needed for Nausea and Vomiting (N/V). methylPREDN 2020-0 Yes [id number] Take by Univers ISolone 1-19 mouth ity of (MEDROL, 00:00: SEE-INSTRU [place] as JENNY,) 4 mg 00 CTIONS. Medica l tablets follow Branch package directions dicyclomine 2020-0 Yes [id number] 10mg Take 1 Univers (BENTYL) 10 1-19 capsule by it y of mg capsule 00:00: mouth [place] 00 every 8 Medical (eight) Branch hours as needed for Abdominal pain. ondansetron 2020-0 Yes [id number] 4mg Take 1 Univers 4 mg 1-19 tablet by ity of disintegrat 00:00: mouth [place] ing tablet 00 every 8 Medica l (eight) Branch hours as needed for Nausea and Vomiting (N/V). methylPREDN 2020-0 Yes [id number] Take by Univers ISolone 1-19 mouth ity of (MEDROL, 00:00: SEE-INSTRU [place] as JENNY,) 4 mg 00 CTIONS. Medica l tablets follow Branch package directions dicyclomine 2020-0 Yes [id number] 10mg Take 1 Univers (BENTYL) 10 1-19 capsule by it y of mg capsule 00:00: mouth [place] 00 every 8 Medical (eight) Branch hours as needed for Abdominal pain. ondansetron 2020-0 Yes [id number] 4mg Take 1 Univers 4 mg 1-19 tablet by ity of disintegrat 00:00: mouth [place] ing tablet 00 every 8 Medica l (eight) Branch hours as needed for Nausea and Vomiting (N/V). methylPREDN 2020-0 Yes [id number] Take by Univers ISolone 1-19 mouth ity of (MEDROL, 00:00: SEE-INSTRU [place] as JENNY,) 4 mg 00 CTIONS. Medica l tablets follow Branch package directions dicyclomine 2020-0 Yes [id number] 10mg Take 1 Univers (BENTYL) 10 1-19 capsule by it y of mg capsule 00:00: mouth [place] 00 every 8 Medical (eight) Branch hours as needed for Abdominal pain. ondansetron 2020-0 Yes [id number] 4mg Take 1 Univers 4 mg 1-19 tablet by ity of disintegrat 00:00: mouth [place] ing tablet 00 every 8 Medica l (eight) Branch hours as needed for Nausea and Vomiting (N/V). methylPREDN 2020-0 Yes [id number] Take by Univers ISolone 1-19 mouth ity of (MEDROL, 00:00: SEE-INSTRU [place] as JENNY,) 4 mg 00 CTIONS. Medica l tablets follow Branch package directions sucralfate 2020-0 Yes [id number] 1g Take 1 U nivers 1 gram 1-19 tablet by ity of tablet 00:00: mouth [place] 00 before Medical meals and Branch at bedtime. dicyclomine 2020-0 Yes [id number] 10mg Take 1 Univers (BENTYL) 10 1-19 capsule by it y of mg capsule 00:00: mouth [place] 00 every 8 Medical (eight) Branch hours as needed for Abdominal pain. ondansetron 2020-0 Yes [id number] 4mg Take 1 Univers 4 mg 1-19 tablet by ity of disintegrat 00:00: mouth [place] ing tablet 00 every 8 Medica l (eight) Branch hours as needed for Nausea and Vomiting (N/V). methylPREDN 2020-0 Yes [id number] Take by Univers ISolone 1-19 mouth ity of (MEDROL, 00:00: SEE-INSTRU [place] as JENNY,) 4 mg 00 CTIONS. Medica l tablets follow Branch package directions sucralfate 2020-0 Yes [id number] 1g Take 1 U nivers 1 gram 1-19 tablet by ity of tablet 00:00: mouth [place] 00 before Medical meals and Branch at bedtime. dicyclomine 2020-0 Yes [id number] 10mg Take 1 Univers (BENTYL) 10 1-19 capsule by it y of mg capsule 00:00: mouth [place] 00 every 8 Medical (eight) Branch hours as needed for Abdominal pain. ondansetron 2020-0 Yes [id number] 4mg Take 1 Univers 4 mg 1-19 tablet by ity of disintegrat 00:00: mouth [place] ing tablet 00 every 8 Medica l (eight) Branch hours as needed for Nausea and Vomiting (N/V). methylPREDN 2020-0 Yes [id number] Take by Univers ISolone 1-19 mouth ity of (MEDROL, 00:00: SEE-INSTRU Kristian as JENNY,) 4 mg 00 CTIONS. Medica l tablets follow Branch package directions sucralfate 2020-0 Yes [id number] 1g Take 1 U nivers 1 gram 1-19 tablet by ity of tablet 00:00: mouth [place] 00 before Medical meals and Branch at bedtime. dicyclomine 2020-0 Yes [id number] 10mg Take 1 Univers (BENTYL) 10 1-19 capsule by it y of mg capsule 00:00: mouth [place] 00 every 8 Medical (eight) Branch hours as needed for Abdominal pain. ondansetron 2020-0 Yes [id number] 4mg Take 1 Univers 4 mg 1-19 tablet by ity of disintegrat 00:00: mouth [place] ing tablet 00 every 8 Medica l (eight) Branch hours as needed for Nausea and Vomiting (N/V). methylPREDN 2020-0 Yes [id number] Take by Univers ISolone 1-19 mouth ity of (MEDROL, 00:00: SEE-INSTRU Kristian as JENNY,) 4 mg 00 CTIONS. Medica l tablets follow Branch package directions sucralfate 2020-0 Yes [id number] 1g Take 1 U nivers 1 gram 1-19 tablet by ity of tablet 00:00: mouth [place] 00 before Medical meals and Branch at bedtime. dicyclomine 2020-0 Yes [id number] 10mg Take 1 Univers (BENTYL) 10 1-19 capsule by it y of mg capsule 00:00: mouth [place] 00 every 8 Medical (eight) Branch hours as needed for Abdominal pain. ondansetron 2020-0 Yes [id number] 4mg Take 1 Univers 4 mg 1-19 tablet by ity of disintegrat 00:00: mouth [place] ing tablet 00 every 8 Medica l (eight) Branch hours as needed for Nausea and Vomiting (N/V). methylPREDN 2020-0 Yes [id number] Take by Univers ISolone 1-19 mouth ity of (MEDROL, 00:00: SEE-INSTRU [place] as JENNY,) 4 mg 00 CTIONS. Medica l tablets follow Branch package directions sucralfate 2019-0 2020- No [id number] 1g Take 1 Univers 1 gram 1-19 07-13 tablet by ity of tablet 00:00: 00:00 mouth [place] 00 :00 before Medical meals and Branch at bedtime. omeprazole 2019-0 2020- No [id number] 20mg Take 1 Univers 20 mg 1-19 02-19 capsule by ity of capsule 00:00: 05:59 mouth [place] 00 :00 daily for Medical 30 days. Branch metoclopram 2018-07 Yes [id number] 10mg Take 1 Univers nba HCl 10 1-18 tablet by ity of mg tablet 00:00: mouth [place] 00 every 6 Medical (six) Branch hours as needed for Nausea and Vomiting (N/V). metoclopram 2018-07 Yes [id number] 10mg Take 1 Univers nba HCl 10 1-18 tablet by ity of mg tablet 00:00: mouth [place] 00 every 6 Medical (six) Branch hours as needed for Nausea and Vomiting (N/V). metoclopram 2018-07 Yes [id number] 10mg Take 1 Univers nba HCl 10 1-18 tablet by ity of mg tablet 00:00: mouth [place] 00 every 6 Medical (six) Branch hours as needed for Nausea and Vomiting (N/V). metoclopram 2018-07 Yes [id number] 10mg Take 1 Univers nba HCl 10 1-18 tablet by ity of mg tablet 00:00: mouth [place] 00 every 6 Medical (six) Branch hours as needed for Nausea and Vomiting (N/V). metoclopram 2018-07 Yes [id number] 10mg Take 1 Univers nba HCl 10 1-18 tablet by ity of mg tablet 00:00: mouth [place] 00 every 6 Medical (six) Branch hours as needed for Nausea and Vomiting (N/V). metoclopram 2018-07 Yes [id number] 10mg Take 1 Univers nba HCl 10 1-18 tablet by ity of mg tablet 00:00: mouth [place] 00 every 6 Medical (six) Branch hours as needed for Nausea and Vomiting (N/V). metoclopram 2018-07 Yes [id number] 10mg Take 1 Univers nba HCl 10 1-18 tablet by ity of mg tablet 00:00: mouth [place] 00 every 6 Medical (six) Branch hours as needed for Nausea and Vomiting (N/V). metoclopram 2018-07 Yes [id number] 10mg Take 1 Univers nba HCl 10 1-18 tablet by ity of mg tablet 00:00: mouth [place] 00 every 6 Medical (six) Branch hours as needed for Nausea and Vomiting (N/V). metoclopram 2018-07 Yes [id number] 10mg Take 1 Univers nba HCl 10 1-18 tablet by ity of mg tablet 00:00: mouth [place] 00 every 6 Medical (six) Branch hours as needed for Nausea and Vomiting (N/V). dicyclomine 2018-07 2020- No [id number] 20mg Take 1 Univers (BENTYL) 20 1-18 [...] Nystatin Nystatin No 1applic TID [facility] [id number] [facility] - UNT/ML / UNT/ML / Memoria Triamcinolo Triamcinolo l ne ne (LUF/LI Acetonide 1 Acetonide 1 V /SA) MG/ML MG/ML Topical Topical Cream Cream Amoxicillin Amoxicillin No 875mg BID [facility] 875 MG Oral 875 MG Oral L ukes - Tablet Tablet Memoria l (LUF/LI V/SA) Vital Signs Vital Name Observation Time Observation Value Comments Source Systolic blood 2020-02-16 05:15:00 137 mm[Hg] [facility] Diastolic blood 2020-02-16 05:15:00 93 mm[Hg] [facility] Heart rate 2020-02-16 05:15:00 79 /min [facility] Respiratory rate 2020-02-16 05:15:00 18 /min [facility] Oxygen saturation in 2020-02-16 05:15:00 99 /min [facility] Arterial blood by [facility] Pulse oximetry [place] Body temperature 2020-02-16 01:23:00 37.28 Pennie [facility] Body weight 2020-02-16 01:23:00 78.019 kg [facility] BMI 2020-02-16 01:23:00 29.52 kg/m2 [facility] Systolic blood 2020-02-06 22:28:00 129 mm[Hg] [facility] Diastolic blood 2020-02-06 22:28:00 93 mm[Hg] Unive rsity of pressure [place] [facility] Heart rate 2020-02-06 22:28:00 100 /min [facility] [place] [facility] Body temperature 2020-02-06 22:28:00 36.72 Pennie [facility] [place] [facility] Respiratory rate 2020-02-06 22:28:00 18 /min Univ ers[facility] [place] [facility] Body weight 2020-02-06 22:28:00 79.379 kg [facility] [place] [facility] BMI 2020-02-06 22:28:00 30.04 kg/m2 [facility] [place] [facility] Oxygen saturation in 2020-02-06 22:28:00 98 /min University of Arterial blood by [place] [employer] [facility] Pulse oximetry Branch Systolic blood 2020-01-19 18:07:00 125 mm[Hg] Univer sity of pressure [place] [facility] Diastolic blood 2020-01-19 18:07:00 83 mm[Hg] Unive rsity of pressure [place] [facility] Heart rate 2020-01-19 18:07:00 83 /min [facility]i [facility] [place] [facility] Body temperature 2020-01-19 18:07:00 37.11 Pennie [facility] [place] [facility] Respiratory rate 2020-01-19 18:07:00 17 /min Univ [facility] [place] [facility] Body height 2020-01-19 18:07:00 162.6 cm [facility] [place] [facility] Body weight 2020-01-19 18:07:00 79.379 kg [facility] [place] [facility] BMI 2020-01-19 18:07:00 30.04 kg/m2 [facility] [place] [facility] Oxygen saturation in 2020-01-19 18:07:00 98 /min University of Arterial blood by [place] [employer] [facility] Pulse oximetry Branch Systolic blood 2019-09-20 00:00:00 124 mm[Hg] Univer sity of pressure [place] [facility] Diastolic blood 2019-09-20 00:00:00 75 mm[Hg] Unive rsity of pressure [place] [facility] Heart rate 2019-09-20 00:00:00 74 /min [facility]i [facility] [place] [facility] Respiratory rate 2019-09-20 00:00:00 16 /min Univ ersity [facility] [place] [facility] Oxygen saturation in 2019-09-20 00:00:00 95 /min University of Arterial blood by [place] Medi tami Pulse oximetry Branch Body temperature 2019-09-19 22:27:00 36.56 [facility]ie [facility] 2019-09-19 22:27:00 81.647 kg [facility] BMI 2019-09-19 22:27:00 30.90 kg/m2 [facility] Systolic blood 2019-07-28 03:49:00 123 mm[Hg] Univer sity of pressure [facility] Diastolic blood 2019-07-28 03:49:00 90 mm[Hg] Unive rsity of pressure [facility] Heart rate 2019-07-28 03:49:00 72 /min [facility] Body temperature 2019-07-28 03:49:00 36.56 Pennie [facility] Respiratory rate 2019-07-28 03:49:00 18 /min [facility] Oxygen saturation in 2019-07-28 03:49:00 95 /min [facility] Arterial blood by [facility] Pulse oximetry [place] Body height 2019-07-28 00:55:00 162.6 cm [facility] Body weight 2019-07-28 00:55:00 81.647 kg [facility] BMI 2019-07-28 00:55:00 30.90 kg/m2 [facility] Respiratory Rate 2017-06-12 19:50:00 18 /min [facility] (LUF/ELISABETH/SA) O2% BldC Oximetry 2017-06-12 19:50:00 98 % [facility] (LUF/ELISABETH/SA) BP Systolic 2017-06-12 19:50:00 128 mm[Hg] [facility] (LUF/ELISABETH/SA) BP Diastolic 2017-06-12 19:50:00 68 mm[Hg] [facility] (LUF/ELISABETH/SA) Body Temperature 2017-06-12 17:02:00 98 F [facility] (LUF/ELISABETH/SA) Height 2017-06-12 17:02:00 65 in [facility] (LUF/ELISABETH/SA) Weight Measured 2017-06-12 17:02:00 174.98 lbs LEEANNE S t [facility] (LUF/ELISABETH/SA) BMI (Body Mass 2017-06-12 17:02:[address] [facility] (LUF/ELISABETH/SA) Procedures Procedure Date / Time Performing Clinician Source Performed CT ABDOMEN PELVIS W 2020-02-16 02:52:29 Jamaal Trotter [facility] CONTRAST Medical Branch LIPASE 2020-02-16 02:01:00 Jamaal Trotter [facility] HEPATIC FUNCTION PANEL 2020-02-16 02:01:00 Jamaal Trotter [facility] ([id number]) (ALB,T.PRO,BILI Medical Branch T,BU/BC,ALT,AST,ALK PHOS) BASIC METABOLIC PANEL 2020-02-16 02:01:00 Jamaal Trotter [facility] (NA, K, CL, CO2, Medical Branch GLUCOSE, BUN, CREATININE, CA) CBC WITH DIFF 2020-02-16 02:01:00 Jamaal Trotter [facility] URINALYSIS 2020-02-16 02:01:00 Jamaal Trotter [facility] CONSENT/REFUSAL FOR 2020-02-06 22:17:29 [facility]igned, [facility] Name Medical Branch XR KUB 2019-09-20 00:34:59 Swati Limon [facility] COMP. METABOLIC PANEL 2019-09-20 00:13:00 Swati Limon Un [facility] ([id number]) [facility] CBC WITH DIFFERENTIAL 2019-09-20 00:13:00 [facility] URINALYSIS 2019-09-20 00:13:00 Swati Limon [facility] NOTICE OF PRIVACY 2019-09-19 22:17:17 Doctor Unassigned, No [facility] Name Medical Branch CONSENT/REFUSAL FOR 2019-09-19 22:17:05 Doctor Unassigned, No Un iversity [facility] DIAGNOSIS AND TREATMENT Name Medical Branch CT ABDOMEN PELVIS W 2019-07-28 02:46:48 Sabi Berman [facility] CONTRAST Medical Branch LIPASE 2019-07-28 01:34:00 Berman, Sabi [facility] Branch COMP. METABOLIC PANEL 2019-07-28 01:34:00 [facility] ([id number]) [facility] CBC WITH DIFFERENTIAL 2019-07-28 01:34:00 Sabi Berman [facility] CONSENT/REFUSAL FOR 2019-07-28 00:45:36 Doctor Unassigned, No Un [facility] DIAGNOSIS AND TREATMENT Name Medical Branch Encounters Start End Encounter Admission Attending Care Care Encounter Source Date/Time Date/Time Type Type Clinicians Facility Department ID 2021-05-06 Emergency [facility] [id number] Univers 11:24:52 ity of [facility] 2021-05-06 Emergency [facility] [id number] Univers 10:10:15 ity of [facility] 2021-06-22 2021-06-22 Outpatient R [facility] [id number] Univers 20:15:00 20:15:00 [id number] ity [facility] 2021-06-22 2021-06-22 Outpatient R UNKNOWN, [facility] [id number] Univers 20:15:00 20:15:00 ATTENDING ity [facility] 2020-02-15 2020-02-16 Emergency Jamaal Trotter [facility] [id number] Univers 20:25:00 00:23:00 T Kelsi [id number] i ty of [place] [id number] [place] [phone] [place] [id number] Branch 2020-02-06 2020-02-06 Emergency Christine [facility] [id number] Univers 17:30:03 18:06:00 Jamaal Dolan [id number] i ty of [place] [id number] [place] [phone] [facility] 084 Branch 2020-02-06 2020-02-06 Orders Doctor BENAVIDES [id number] [id number] Univers 00:00:00 00:00:00 Only Unassigned, CHARLA [id number] ity of [place] [facility] [id number] Kristian [phone] [place] [address] Branch 2020-02-03 2020-02-03 Telephone Pob1, Acute [facility] 1.2.840.114 [id number] Univers 00:00:00 00:00:00 [facility] [id number] ity of [place] [id number] Kristian as Professio [phone] [address] Office Building [facility] 2020-01-19 2020-01-19 Urgent Pob1, Acute Care Clinic [facility] 1. [id number] [id number] Univers 13:01:51 13:40:36 [facility] [id number] ity of [place] [id number] Kristian as Professio [phone] [address] 2020-01-19 2020-01-19 Outpatient R [facility] [id number] Univers 13:00:00 13:00:00 [id number] ity of [facility] 2020-01-19 2020-01-19 Outpatient R [facility] [id number] Univers 13:00:00 13:00:00 ity of [facility] 2020-01-19 2020-01-19 Letter Doctor MAKAYLA 1.2.840.114 [id number] Univers 00:00:00 00:00:00 (Out) Unassigned, CHARLA [id number] [facility] [id number] Kristian as [phone] [address] 2020-01-09 2020-01-09 Outpatient R [facility] [id number] Univers 09:40:00 09:40:00 [id number] ity of [facility] 2020-01-09 2020-01-09 Outpatient R [facility] [id number] Univers 09:40:00 09:40:00 ity of [facility] 2019-09-19 2019-09-19 Emergency X MARSHA [facility] ERT [id number] Univers 18:38:25 20:38:00 SWATI ity [facility] 2019-09-19 2019-09-19 Emergency Marsha [facility] 1.2.840.114 [id number] Univers 18:38:25 20:38:00 Swati Dolan [id number] ity of [place] [id number] [facility] [phone] [facility] 084 Branch 2019-09-19 2019-09-19 Orders Doctor MAKAYLA 1.2.840.114 [id number] Univers 00:00:00 00:00:00 Only Unassigned, CHARLA [id number] ity of [place] [facility] [id number] Kristian [id number] [facility] 009 Branch 2019-07-27 2019-07-27 Emergency Berman, [facility] [id number] Univers 18:49:37 21:53:00 Sabi Dolan [id number] i ty of [place] [id number] [facility] [phone] [place] 759634 Branch 2017-06-12 2017-06-12 STRAIN 1 RENNER, [facility] PATEL [facility] PATEL [id number] 16:57:00 19:55:00 [facility] kes - FASCIA , [address] [facility] TENDON [facility] (LUF/LI ST, PATEL V/SA) [place] [address] Results Test Description Test Time Test Results [...] Interpretation Comme nts NA (test code = 3170162777) 138 mmol/L 135-145 K (test code = 1005107508) 3.8 mmol/L 3.5-5 CL (test code = 7814013362) 105 mmol/L 98-108 CO2 TOTAL (test code = 8479523896) 25 mmol/L 23-31 AGAP (test code = 9102297542) 2-16 BUN (test code = 2439461399) 11 mg/dL 7-23 GLUCOSE (test code = 4701293554) 111 mg/dL 70-110 H CREATININE (test code = 0.95 mg/dL 0.6-1.25 6248934058) CALCIUM (test code = 3624086988) 9.4 mg/dL 8.6-10.6 eGFR Calculation (Non- mL/min/1.73m2 [place]) (test code = 5513752460) eGFR Calculation ( mL/min/1.73m2 Slovak) (test code = 0484463265) EVERTON (test code = EVERTON) Association of [...] tests). Lab Interpretation (test code = Abnormal 75271-8) [facility] (ALB, T.PRO, BILI T, BU/BC, ALT, AST, ALK PHOS)2020-02-16 02:37:00 Test Item Value Reference Range Interpretation Comments TOTAL BILI (test code = 8540396955) 0.2 mg/dL 0.1-1.1 BILI UNCON (test code = 1289770085) 0.3 mg/dL 0.1-1.1 BILI CONJ (test code = 0166605591) 0.0 mg/dL 0-0.3 T PROTEIN (test code = 0649836301) 7.4 g/dL 6.3-8.2 ALBUMIN (test code = 2973519062) 4.5 g/dL 3.5-5 ALK PHOS (test code = 6710187299) 70 U/L 34-122 ALTv (test code = 1742-6) 19 U/L 5-50 AST(SGOT) (test code = 9071202529) 22 U/L 13-40 Lab Interpretation (test code = Normal 54831-7) [facility] [id number] 02:37:00 Test Item Value Reference Range Interpretation Comments LIPASE (test code = 8330842590) 71 U/L 0-220 Lab Interpretation (test code = Normal 92896-8) [facility]inalysis2020-08-10 02:31:00 Test Item Value Reference Range Interpretation Comments APPEARANCE (test code = Clear Clear 7854684117) COLOR (test code = Yellow Yellow 9394890646) PH (test code = 4.8-8.0 2125040637) SP GRAVITY (test code = 1.003-1.030 3422408131) GLU U QUAL (test code = Normal Normal 7009862194) BLOOD (test code = Negative Negative 7453622468) KETONES (test code = 5 mg/dL Negative A 0087793290) PROTEIN (test code = Negative Negative 2887-8) UROBILIN (test code = 2.0 mg/dL Normal A 4728520851) BILIRUBIN (test code = Negative Negative 4669272376) NITRITE (test code = Negative Negative 4242720802) LEUK EMMANUEL (test code = Negative Negative 6864630877) RBC/HPF (test code = <1 See_Comment [Autom ated message] 0728220004) The system Hively generated this result transmit clay reference range : 0 - 3 HPF. The refe rence range was not u sed to interpret th is result as normal/abnormal . WBC/HPF (test code = <1 See_Comment [Autom ated message] 7533507071) The system Hively generated this result transmit clay reference range : 0 - 5 HPF. The refe rence range was not u sed to interpret th is result as normal/abnormal . BACTERIA (test code = Negative Negative 9429419960) MUCOUS (test code = Slight Negative LPF A 0096199957) SQ EPITH (test code = <1 HPF 1099315852) Lab Interpretation (test Abnormal code = 61560-2) [facility] with [id number] 02:23:00 Test Item Value Reference Range Interpretation [...] (test code = 35.2 fL 38.5-51.6 L 36367-6) RDW-CV (test code = 11.3 % 12.1-15.4 L 788-0) PLT (test code = See_Comment [Automated 777-3) message] The sy stem which generated this result transmitted reference range : 150 - 328 10*3/ ?L. The reference r abhijit was not used to interpret this result as normal/abnormal . MPV (test code = 10.0 fL 9.8-13 05218-4) NRBC/100 WBC (test See_Comment [Automat ed code = 7192413447) message] The system which generated this result transmitted reference range : 0.0 - 10.0 /100 WBCs. The refer ence range was not u sed to interpret th is result as normal/abnormal . NRBC x10^3 (test code <0.01 See_Comment [Auto mated = 0412838455) message] The s ystem which generated this result transmitted reference range : 10*3/?L. The reference range was not used to interpret this result as normal/abnormal . GRAN MAT (NEUT) % 60.4 % (test code = 770-8) IMM GRAN % (test code 0.10 % = 0568342821) LYMPH % (test code = 32.6 % 736-9) MONO % (test code = 6.3 % 5905-5) EOS % (test code = 0.5 % 713-8) BASO % (test code = 0.1 % 706-2) GRAN MAT x10^3(ANC) 5.29 10*3/uL 1.99-6.95 (test code = 4469199854) IMM GRAN x10^3 (test <0.03 0-0.06 code = 3227877997) LYMPH x10^3 (test code 2.85 10*3/uL 1.09-3.23 = 731-0) MONO x10^3 (test code 0.55 10*3/uL 0.36-1.02 = 742-7) EOS x10^3 (test code = 0.04 10*3/uL 0.06-0.53 L 711-2) BASO x10^3 (test code <0.03 0.01-0.09 = 704-7) Lab Interpretation Abnormal (test code = 46979-6) [facility]inalysis2020-03-14 00:48:00 Test Item Value Reference Range Interpretation Comments APPEARANCE (test code = Clear Clear 5547341514) COLOR (test code = Straw Yellow A 9843984796) PH (test code = 4.8-8.0 9200986361) SP GRAVITY (test code = 1.003-1.030 7926193199) GLU U QUAL (test code = Normal Normal 4826024767) BLOOD (test code = Negative Negative 4490754790) KETONES (test code = Negative Negative 8572698515) PROTEIN (test code = Negative Negative 2887-8) UROBILIN (test code = Normal Normal 6944260224) BILIRUBIN (test code = Negative Negative 5829730742) NITRITE (test code = Negative Negative 7021258931) LEUK EMMANUEL (test code = Negative Negative 8751458308) RBC/HPF (test code = See_Comment [Autom ated message] 1278670840) The system Hively generated this result transmitted ref erence range: 0 - 3 HP F. The reference range was not used to int erpret this result as normal/abnormal . WBC/HPF (test code = <1 See_Comment [Autom ated message] 8002106387) The system Hively generated this result transmitted ref erence range: 0 - 5 HP F. The reference range was not used to int erpret this result as normal/abnormal . BACTERIA (test code = Negative Negative 7645429900) MUCOUS (test code = Slight Negative LPF A 3689764869) Lab Interpretation (test Abnormal code = 06912-6) [facility]. METABOLIC PANEL (39457)2019-09-20 00:48:00 Test Item Value Reference Range Interpretation Comments NA (test code = 141 mmol/L 135-145 9523856835) K (test code = 3.9 mmol/L 3.5-5 5446949330) CL (test code = 106 mmol/L 98-108 3456264190) CO2 TOTAL (test code = 25 mmol/L 23-31 2366881179) AGAP (test code = 2-16 9774715240) BUN (test code = 14 mg/dL 7-23 7124304250) GLUCOSE (test code = 101 mg/dL 70-110 1421702856) CREATININE (test code 1.03 mg/dL 0.6-1.25 = 8102286605) TOTAL BILI (test code 0.3 mg/dL 0.1-1.1 = 2937310588) CALCIUM (test code = 9.9 mg/dL 8.6-10.6 4933024352) T PROTEIN (test code = 6.8 g/dL 6.3-8.2 7202390700) ALBUMIN (test code = 4.7 g/dL 3.5-5 6521459355) ALK PHOS (test code = 63 U/L 34-122 5675994545) ALTv (test code = 20 U/L 5-50 1742-6) AST(SGOT) (test code = 20 U/L 13-40 2411294776) eGFR Calculation mL/min/1.73m2 (Non-) (test code = 5697176915) eGFR Calculation mL/min/1.73m2 () (test code = 6164315578) EVERTON (test code = EVERTON) Association of [...] or urine or abnormalities in imaging tests). [facility] WITH [id number] 00:31:00 Test Item Value Reference Range Interpretation Comments WBC (test code = See_Comment [Automated 1703-2) message] The sy stem which generated this result transmitted reference range : 4.20 - 10.70 10*3/?L. The reference range was not used to interpret this result as normal/abnormal . RBC (test code = See_Comment [Automated 339-8) message] The sy stem which generated this [...] (test code = 38.2 fL 38.5-51.6 L 52615-1) RDW-CV (test code = 12.0 % 12.1-15.4 L 788-0) PLT (test code = See_Comment [Automated 777-3) message] The sy stem which generated this result transmitted reference range : 150 - 328 10*3/ ?L. The reference r abhijit was not used to interpret this result as normal/abnormal . MPV (test code = 10.0 fL 9.8-13 28486-4) NRBC/100 WBC (test See_Comment [Automat ed code = 7151426568) message] The system which generated this result transmitted reference range : 0.0 - 10.0 /100 WBCs. The refer ence range was not u sed to interpret th is result as normal/abnormal . NRBC x10^3 (test code <0.01 See_Comment [Auto mated = 2212879577) message] The s ystem which generated this result transmitted reference range : 10*3/?L. The reference range was not used to interpret this result as normal/abnormal . GRAN MAT (NEUT) % 60.6 % (test code = 770-8) IMM GRAN % (test code 0.40 % = 0571853033) LYMPH % (test code = 31.9 % 736-9) MONO % (test code = 6.1 % 5905-5) EOS % (test code = 0.8 % 713-8) BASO % (test code = 0.2 % 706-2) GRAN MAT x10^3(ANC) 5.02 10*3/uL 1.99-6.95 (test code = 0704845505) IMM GRAN x10^3 (test 0.03 10*3/uL 0-0.06 code = 5489369062) LYMPH x10^3 (test code 2.65 10*3/uL 1.09-3.23 = 731-0) MONO x10^3 (test code 0.51 10*3/uL 0.36-1.02 = 742-7) EOS x10^3 (test code = 0.07 10*3/uL 0.06-0.53 711-2) BASO x10^3 (test code <0.03 0.01-0.09 = 704-7) Lab Interpretation Abnormal (test code = 89163-1) [facility] PEL[facility] W [id number] 02:58:35Impression: 1. Fluid-filled, nondilated distal small bowel loops with mucosal foldthickening, suggestive of enteritis.2. Normal appendix. No free air or free fluid. RL: 2824AFC: 39577 End of Report Exam: CT Abdomen and [...] No free air or free fluid.RL: 2824AFC: 91196Dwb of Report [facility] METABOLIC PANEL (04873)2019-07-28 02:28:00 Test Item Value Reference Range Interpretation Comments NA (test code = 140 mmol/L 135-145 1105406537) K (test code = 3.8 mmol/L 3.5-5 8633681692) CL (test code = 107 mmol/L 98-108 1701555697) CO2 TOTAL (test code = 24 mmol/L 23-31 8986103565) AGAP (test code = 2-16 8229355647) BUN (test code = 14 mg/dL 7-23 5436474268) GLUCOSE (test code = 119 mg/dL 70-110 H 3817110519) CREATININE (test code = 1.03 mg/dL 0.6-1.25 6449878782) TOTAL BILI (test code = 0.2 mg/dL 0.1-1.7 8076942370) CALCIUM (test code = 9.6 mg/dL 8.6-10.6 5217574735) T PROTEIN (test code = 7.8 g/dL 6.3-8.2 5442740654) ALBUMIN (test code = 4.9 g/dL 3.5-5 4693137729) ALK PHOS (test code = 69 U/L 34-122 3772937737) ALTv (test code = 47 U/L 5-50 1742-6) AST(SGOT) (test code = 30 U/L 13-40 0360151474) eGFR Calculation mL/min/1.73m2 (Non-) (test code = 3374651152) eGFR Calculation mL/min/1.73m2 () (test code = 6117713480) EVERTON (test code = EVERTON) Association of [...] tests). Lab Interpretation Abnormal (test code = 84304-4) [facility]2020-01-20 02:28:00 Test Item Value Reference Range Interpretation Comments LIPASE (test code = 6158574385) 103 U/L 0-220 Lab Interpretation (test code = Normal 87854-7) [facility]CB WITH [id number] 02:09:00 Test Item Value Reference Range Interpretation [...] (test code = 35.8 fL 38.5-51.6 L 78346-8) RDW-CV (test code = 11.8 % 12.1-15.4 L 788-0) PLT (test code = See_Comment [Automated 777-3) message] The sy stem which generated this result transmitted reference range : 150 - 328 10*3/ ?L. The reference r abhijit was not used to interpret this result as normal/abnormal . MPV (test code = 10.2 fL 9.8-13 21956-9) NRBC/100 WBC (test See_Comment [Automat ed code = 5717718346) message] The system which generated this result transmitted reference range : 0.0 - 10.0 /100 WBCs. The refer ence range was not u sed to interpret th is result as normal/abnormal . NRBC x10^3 (test code <0.01 See_Comment [Auto mated = 3078489783) message] The s ystem which generated this result transmitted reference range : 10*3/?L. The reference range was not used to interpret this result as normal/abnormal . GRAN MAT (NEUT) % 59.2 % (test code = 770-8) IMM GRAN % (test code 0.20 % = 3718559329) LYMPH % (test code = 31.1 % 736-9) MONO % (test code = 8.5 % 5905-5) EOS % (test code = 0.8 % 713-8) BASO % (test code = 0.2 % 706-2) GRAN MAT x10^3(ANC) 5.01 10*3/uL 1.99-6.95 (test code = 8989022687) IMM GRAN x10^3 (test <0.03 0-0.06 code = 2697850724) LYMPH x10^3 (test code 2.63 10*3/uL 1.09-3.23 = 731-0) MONO x10^3 (test code 0.72 10*3/uL 0.36-1.02 = 742-7) EOS x10^3 (test code = 0.07 10*3/uL 0.06-0.53 711-2) BASO x10^3 (test code <0.03 0.01-0.09 = 704-7) Lab Interpretation Abnormal (test code = 65577-0) [facility]/PELVIS W/O [id number] 19:08:00NPO 4 hours. Do not withhold medsProcedure: CT ABDOMEN/PELVIS W/O CONTRASTExam Date: 06/12/2017 5:36 PMOrdering Provider: BLANCA SIMSlinical Indication: low abd [...] Enzo Cabrera MD 06/12/20177:01 PMDictated By: ENZO CABRERADate: 06/12/2017 19:[id number] 18:51:00 Test Item Value Reference Range Interpretation [...] 4 - SerumAlbu min)] EGFR if >60 Slovak (test code mL/min/1.73m\\ = EGFRAA) S\\2 EGFR if Non- >60 Estimate d Glomerular Slovak (test code mL/min/1.73m\\ Filtrat ion Rate (eGFR) [...] 11 code = GAP) CBC WITH AUTO [id number] 18:02:00 Test Item Value Reference Range Interpretation [...] = 0 /100WBC 0-2 NRBC_AUTO) URINALYSIS WITHOUT [id number] 17:32:00 Test Item Value Reference Range Interpretation Comments Color (test code = UCOLR) Yellow Lt. Yellow A Clarity (test code = UCLAR) Clear Glucose (test code = UGLUC) Negative Negative N Bilirubin (test code = UBILI) Negative Negative N Ketones (test code = UKET) Negative Negative N Specific [place] (test code = 1.015 1.005-1.030 A USPGR) [...]
--- NOTE | 2021-06-29 09:58 | ER ---
Nurse's Notes [facility] Name: Sunny Angel Age: 30 yrs Sex: Male : 1990 Arrival Date: 06/29/2021 Time: 09:21 Bed 19 Private MD: Miguel Ángel Keys Diagnosis: Rash and other nonspecific skin eruption Presentation: 06/29 09:31 Chief complaint: Patient states: tested positive for COVID on 06-16,had a negative home iw test on Sunday then on Sunday he developed a sore throat, productive cough, itchy rash on his hands, between his toes and his penis. Coronavirus screen: Client presents with at least one sign or symptom that may indicate coronavirus-19. Ebola Screen: Patient negative for fever greater than or equal to 101.5 degrees Fahrenheit, and additional compatible Ebola Virus Disease symptoms Patient denies exposure to infectious person. Patient denies travel to an Ebola-affected area in the 21 days before illness onset. No symptoms or risks identified at this time. Initial Sepsis Screen: Does the patient meet any 2 criteria? No. Patient's initial sepsis screen is negative. Does the patient have a suspected source of infection? No. Patient's initial sepsis screen is negative. Risk Assessment: Do you want to hurt yourself or someone else? Patient reports no desire to harm self or others. Onset of symptoms was June 26, 2021. 09:31 Method Of Arrival: Ambulatory iw 09:31 Acuity: GILBERT 4 iw Historical: - Allergies: 09:33 Latex, Natural Rubber; iw 09:33 SEAFOOD; iw - Home Meds: :33 None [Active]; iw - PMHx: 09:33 depressive disorder; iw - PSHx: 09:33 oral SX; iw - Immunization history:: Client reports having NOT received the Covid vaccine. - Social history:: Smoking status: Patient reports the use of cigarette tobacco products, smokes one pack cigarettes per day. Screenin:40 Abuse screen: Denies threats or abuse. Denies injuries from another. Nutritional jh5 screening: No deficits noted. Tuberculosis screening: No symptoms or risk factors identified. Fall Risk None identified. Assessment: 09:38 General: Appears in no apparent distress. comfortable, Behavior is calm, cooperative, jh5 appropriate for age. Pain:. Respiratory: No deficits noted. Airway is patent Respiratory effort is even, Breath sounds are clear. EENT: Throat is clear. Vital Signs: 09:31 Weight 79.38 kg; Height 5 ft. 4 in. (162.56 cm); iw 09:31 Body Mass Index 30.04 (79.38 kg, 162.56 cm) ED Course: 09:21 Patient arrived in ED. mr 09:22 Miguel Ángel Keys MD is Private Physician. mr 09:27 [facility]ant[facility]. jr8 09:27 Jamaal Umana MD is Attending Physician. jr8 09:33 Triage completed. iw 09:33 Arm band placed on. iw 09:40 Patient has correct armband on for positive identification. Call light in reach. Side [facility] rails up X 1. Administered Medications: 10:03 Drug: SOLU-Medrol (methylPREDNISolone sodium succinate) 125 mg Route: IM; Site: left [facility] ventrogluteal; Outcome: 09:57 Discharge ordered by . jr8 10:08 Patient left the ED. [facility] Signatures: Jeanine Almaraz mr Iris Corley, RN RN Pascual Bratnley PA PA jr8 Jessica Clark RN RN [facility]
--- NOTE | 2021-06-29 09:58 | EDPHYS ---
Physician Documentation [facility] Name: Sunny Angel Age: 30 yrs Sex: Male : 1990 Arrival Date: 06/29/2021 Time: 09:21 Bed 19 Private MD: Miguel Ángel Keys ED Physician Jamaal Umana HPI: 06/29 09:53 This 30 yrs old Male presents to ER via Ambulatory with complaints of Sore Throat, jr8 Congestion, Rash. 09:53 This is a 30-year-old male that presented to the emergency room with complaints of rash jr8 to the hand foot and genital region. Patient stated that he he has been recently recovering from Covid and getting over congestion. Started to have mild sore throat the other day which has since dissipated but now has a rash to the after mentioned regions. Denies taking any new medications or changing any substances at home.. Historical: - Allergies: 09:33 Latex, Natural Rubber; iw 09:33 SEAFOOD; iw - Home Meds: 09:33 None [Active]; iw - PMHx: 09:33 depressive disorder; iw - PSHx: 09:33 oral SX; iw - Immunization history:: Client reports having NOT received the Covid vaccine. - Social history:: Smoking status: Patient reports the use of cigarette tobacco products, smokes one pack cigarettes per day. ROS: 09:53 Constitutional: Negative for fever, chills, and weight loss. jr8 09:53 Skin: Positive for rash. 09:53 All other systems are negative. Exam: 09:53 Constitutional: This is a well developed, well nourished patient who is awake, alert, jr8 and in no acute distress. ENT: Nares patent. No nasal discharge, no septal abnormalities noted. Tympanic membranes are normal and external auditory canals are clear. Oropharynx with no redness, swelling, or masses, exudates, or evidence of obstruction, uvula midline. Mucous membranes moist. Neck: Trachea midline, no thyromegaly or masses palpated, and no cervical lymphadenopathy. Supple, full range of motion without nuchal rigidity, or vertebral point tenderness. No Meningismus. Cardiovascular: Regular rate and rhythm with a normal S1 and S2. No gallops, murmurs, or rubs. Normal PMI, no JVD. No pulse deficits. Respiratory: Lungs have equal breath sounds bilaterally, clear to auscultation and percussion. No rales, rhonchi or wheezes noted. No increased work of breathing, no retractions or nasal flaring. Abdomen/GI: Soft, non-tender, with normal bowel sounds. No distension or tympany. No guarding or rebound. No evidence of tenderness throughout. Back: No spinal tenderness. No costovertebral tenderness. Full range of motion. Male : Normal genitalia with no discharge or lesions. MS/ Extremity: Pulses equal, no cyanosis. Neurovascular intact. Full, normal range of motion. Neuro: Awake and alert, GCS 15, oriented to person, place, time, and situation. Cranial nerves II-XII grossly intact. Motor strength 5/5 in all extremities. Sensory grossly intact. 09:53 Skin: Patient has approximately 2.5 cm localized red patch in between the second and third digits palmar aspect of the right hand. A second centimeter rash noted on the right foot between his digits. Rash is blanchable. Mild stinging and itching upon palpation per patient. No other rashes noted.. Vital Signs: 09:31 Weight 79.38 kg; Height 5 ft. 4 in. (162.56 cm); iw 09:31 Body Mass Index 30.04 (79.38 kg, 162.56 cm) iw MDM: 09:27 Patient medically screened. [facility] 09:53 Data reviewed: vital signs, nurses notes, and as a result, I will discharge patient. jr8 Data interpreted: Pulse oximetry: on room air is 100 %. Interpretation: normal. Counseling: I had a detailed discussion with the patient and/or guardian regarding: the historical points, exam findings, and any diagnostic results supporting the discharge/admit diagnosis, the need for outpatient follow up, a family practitioner, to return to the emergency department if symptoms worsen or persist or if there are any questions or concerns that arise at home. ED course: Discussed with patient that this rash could be secondary to Covid. We will start him on hydroxyzine and steroids to see how he does. If he were to start running fevers again to come back for bacteremic work-up. Patient good with this and understands and will come back if anything changes.. Administered Medications: 10:03 Drug: SOLU-Medrol (methylPREDNISolone sodium succinate) 125 mg Route: IM; Site: left [facility] ventrogluteal; Disposition: 10:36 Co-signature as Attending Physician, Jamaal Umana MD I agree with the assessment and kdr plan of care. Disposition Summary: 06/29/21 09:57 Discharge Ordered Location: Home jr8 Problem: new jr8 Symptoms: have improved jr8 Condition: Stable jr8 Diagnosis - Rash and other nonspecific skin eruption jr8 Followup: jr8 - With: Private Physician - When: 7 - 10 days - Reason: Recheck today's complaints, Continuance of care, Re-evaluation by your physician Discharge Instructions: - Discharge Summary Sheet jr8 - Rash, Adult jr8 Forms: - Medication Reconciliation Form jr8 - Thank You Letter jr8 - Antibiotic Education jr8 - Prescription Opioid Use jr8 Prescriptions: - Hydroxyzine HCl 25 mg Oral Tablet - take 1 tablet by ORAL route every 6 hours As needed; 30 tablet; Refills: 0, jr8 Product Selection Permitted - Medrol (Jossue) 4 mg Oral Tablets, Dose Pack - take 1 tablet by ORAL route as directed - follow package instructions; 1 jr8 packet; Refills: 0, Product Selection Permitted - Chantix 1 mg Oral Tablet - take 0.5 tablet by ORAL route once daily for 3 days then take 1/2 tab twice jr8 daily for 4 days and then advance to 1 tablet BID; 60 tablet; Refills: 0, Product Selection Permitted Signatures: Jamaal Umana MD MD [facility] Iris Corley RN RN Pascual Brantley PA PA 8 Jessica Clark RN RN [facility]
[2021-06-29] MEDS ORDERED: METHYLPREDNISOLONE 125 MG INJ ONE (10:01)
== END 2021-06-29 10:08 | disposition home or self-care (01) ==
LOC: ER 09:19
DX: R21 Rash and other nonspecific skin eruption (principal); Z86.16 Personal history of COVID-19; F17.210 Nicotine dependence, cigarettes, uncomplicated; Z91.013 Allergy to seafood; Z91.040 Latex allergy status; Z91.048 Other nonmedicinal substance allergy status
CPT/HCPCS: 96372; 99282; J2930

== ENCOUNTER 2021-08-31 20:35 | Emergency (ER) | payer OTHER ==
--- OUTSIDE RECORDS SUMMARY | 2021-08-31 20:41 | XMS REPORT | Continuity of Care Document ---
:1990 Author Organization [facility] t Address Count includes the [facility] [place] [address] Care Team Providers Name Role Phone Mckenna [...] Date Expiration Date S ourmerritt [employer] - [id number] 2019 OUT OF STATE 00:00:00 REPLACED BY [facility] [id number] 2017 CHOICE MEDICAID 00:00:00 Problems Condition Condition [...] active ity of problems problems [facility] Allergies, Adverse Reactions, Alerts Allergy Allergy Status [...] Univer sity of use 00:00:00 [facility] Exposure to Not sure [facility] SARS-CoV-2 (event) [facility] Sex Assigned At Universit y of [facility] Tobacco use and 2020-02-06 2020-02-06 Never used Universit y of exposure 00:00:00 00:00:00 [facility] Cigarettes smoked 2020-02-06 2020-02-06 Univers ity of current (pack per 00:00:00 00:00:00 ) - Reported Branch Cigarette 2020-02-06 2020-02-06 University of pack-years 00:00:00 00:00:00 [facility] Alcohol intake 2020-02-06 2020-02-06 Current University of 00:00:00 00:00:00 non-drinker of [facility] alcohol Branch (finding) Smoking Status Start Date Stop Date Source Heavy tobacco smoker [facility] (LUF/ELISABETH/SA) Current every day smoker 2020-02-06 00:00:00 Uni versity of [place] [facility] [place] Medications Ordered Filled Start Stop Current Ordering Indication Dosage Frequency Signature Comments Components Source Medication Medication Date Date Medication? Clinician (SIG) Name Name ondansetron 2019- No 4mg 4 mg, Slow Univers (ZOFRAN 02-15 IV Push, ity of (PF)) 04:37: 04:37 ONCE, 1 [place] injection 4 00 :00 dose, Sun Med [...] of 350 03:00: 03:00 s, ONCE, 1 [place] BULK-150 00 :00 dose, Sun Medica l mL) 02/15/20 at [place] injection 2200, 120 mL Routine hydrocortis Yes [id number] Insert Univers one 8-10 into ity of (ANUSOL-HC) 00:00: rectum 2 [place] 2.5 % 00 (two) Medical rectal times Branch cream daily. cephALEXin 2020- No [id number] 500mg Take 1 Univers (KEFLEX) 02-05 capsule by ity of 500 mg 00:00: 04:59 mouth 4 [place] capsule 00 :00 (four) Medical times Branch daily for 7 days. benzonatate 2019- 2020- No [id number] 100mg Take 1 Univers (TESSALON 01-1824 capsule by ity of [place]) 100 00:00: 04:59 mouth 3 [place] mg capsule 00 :00 (three) Medica l times Branch daily as needed for Cough for up to 10 days. doxycycline 2019- 2020- No [id number] 100mg Take 1 Univers hyclate 100 01-18-21 [...] 09/19/19 at 1800, [place] docusate 2019-2019- No [id number] 100mg Take 1 U nivers 100 mg 09-18 capsule by ity of capsule 00:00: 04:59 mouth [place] 00 :00 daily for Medical 7 days. Branch dicyclomine 2019-0 2019- No [id number] 20mg Take 1 Univers 20 mg 09-18 tablet by ity of tablet 00:00: 04:59 mouth 4 [place] 00 :00 (four) Medical times Branch daily for 7 days. polyethlene 2019- 2020- No [id number] 17g Take 17 g Univers glycol 09-1818 [...] First dose [place] mg 00 on [facility] 07/27/19 at Branch 2000, Until Discontinu ed, Routine dicyclomine 2020-0 Yes [id number] 10mg Take 1 Univers (BENTYL) 10 1-19 capsule by it y of mg capsule 00:00: mouth [place] 00 every 8 Medical (eight) Branch hours as needed for Abdominal pain. ondansetron 2020-0 Yes [id number] 4mg Take 1 Univers 4 mg 1-19 tablet by ity of disintegrat 00:00: mouth [place] ing tablet 00 every 8 Medica l (eight) Branch hours as needed for Nausea and Vomiting (N/V). methylPREDN 2020-0 Yes [id number] Take by Univers ISolone 1-19 mouth ity of (MEDROL, 00:00: SEE-INSTRU Kristian as JENNY,) 4 mg 00 CTIONS. Medica l tablets follow Branch package directions dicyclomine 2020-0 Yes [id number] 10mg Take 1 Univers (BENTYL) 10 1-19 capsule by it y of mg capsule 00:00: mouth [place] 00 every 8 Medical (eight) Branch hours as needed for Abdominal pain. ondansetron 2020-0 Yes [id number] 4mg Take 1 Univers 4 mg 1-19 tablet by ity of disintegrat 00:00: mouth [place] ing tablet 00 every 8 Medica l (eight) Branch hours as needed for Nausea and Vomiting (N/V). methylPREDN 2020-0 Yes [id number] Take by Univers ISolone 1-19 mouth ity of (MEDROL, 00:00: SEE-INSTRU [place] as JENNY,) 4 mg 00 CTIONS. Medica l tablets follow Branch package directions dicyclomine 2020-0 Yes [id number] 10mg Take 1 Univers (BENTYL) 10 1-19 capsule by it y of mg capsule 00:00: mouth [place] 00 every 8 Medical (eight) Branch hours as needed for Abdominal pain. ondansetron 2020-0 Yes [id number] 4mg Take 1 Univers 4 mg 1-19 tablet by ity of disintegrat 00:00: mouth [place] ing tablet 00 every 8 Medica l (eight) Branch hours as needed for Nausea and Vomiting (N/V). methylPREDN 2020-0 Yes [id number] Take by Univers ISolone 1-19 mouth ity of (MEDROL, 00:00: SEE-INSTRU [place]ian as JENNY,) 4 mg 00 CTIONS. Medica l tablets follow Branch package directions dicyclomine 2020-0 Yes [id number] 10mg Take 1 Univers (BENTYL) 10 1-19 capsule by it y of mg capsule 00:00: mouth [place] 00 every 8 Medical (eight) Branch hours as needed for Abdominal pain. ondansetron 2020-0 Yes [id number] 4mg Take 1 Univers 4 mg 1-19 tablet by ity of disintegrat 00:00: mouth [place] ing tablet 00 every 8 Medica l (eight) Branch hours as needed for Nausea and Vomiting (N/V). methylPREDN 2020-0 Yes [id number] Take by Univers ISolone 1-19 mouth ity of (MEDROL, 00:00: SEE-INSTRU [place] as JENNY,) 4 mg 00 CTIONS. Medica l tablets follow Branch package directions dicyclomine 2020-0 Yes [id number] 10mg Take 1 Univers (BENTYL) 10 1-19 capsule by it y of mg capsule 00:00: mouth [place] 00 every 8 Medical (eight) Branch hours as needed for Abdominal pain. ondansetron 2020-0 Yes [id number] 4mg Take 1 Univers 4 mg 1-19 tablet by ity of disintegrat 00:00: mouth [place] ing tablet 00 every 8 Medica l (eight) Branch hours as needed for Nausea and Vomiting (N/V). methylPREDN 2020-0 Yes [id number] Take by Univers ISolone 1-19 mouth ity of (MEDROL, 00:00: SEE-INSTRU [place] as JENNY,) 4 mg 00 CTIONS. Medica l tablets follow Branch package directions sucralfate 2020-0 Yes [id number] 1g Take 1 U nivers 1 gram 1-19 tablet by ity of tablet 00:00: mouth [place] 00 before Medical meals and Branch at bedtime. dicyclomine 2020-0 Yes [id number] 10mg Take 1 Univers (BENTYL) 10 1-19 capsule by it y of mg capsule 00:00: mouth [place] 00 every 8 Medical (eight) Branch hours as needed for Abdominal pain. ondansetron 2020-0 Yes [id number] 4mg Take 1 Univers 4 mg 1-19 tablet by ity of disintegrat 00:00: mouth [place] ing tablet 00 every 8 Medica l (eight) Branch hours as needed for Nausea and Vomiting (N/V). methylPREDN 2020-0 Yes [id number] Take by Univers ISolone 1-19 mouth ity of (MEDROL, 00:00: SEE-INSTRU [place] as JENNY,) 4 mg 00 CTIONS. Medica l tablets follow Branch package directions sucralfate 2020-0 Yes [id number] 1g Take 1 U nivers 1 gram 1-19 tablet by ity of tablet 00:00: mouth [place] 00 before Medical meals and Branch at bedtime. dicyclomine 2020-0 Yes [id number] 10mg Take 1 Univers (BENTYL) 10 1-19 capsule by it y of mg capsule 00:00: mouth [place] 00 every 8 Medical (eight) Branch hours as needed for Abdominal pain. ondansetron 2020-0 Yes [id number] 4mg Take 1 Univers 4 mg 1-19 tablet by ity of disintegrat 00:00: mouth [place] ing tablet 00 every 8 Medica l (eight) Branch hours as needed for Nausea and Vomiting (N/V). methylPREDN 2020-0 Yes [id number] Take by Univers ISolone 1-19 mouth ity of (MEDROL, 00:00: SEE-INSTRU Kristian as JENNY,) 4 mg 00 CTIONS. Medica l tablets follow Branch package directions sucralfate 2020-0 Yes [id number] 1g Take 1 U nivers 1 gram 1-19 tablet by ity of tablet 00:00: mouth [place] 00 before Medical meals and Branch at bedtime. dicyclomine 2020-0 Yes [id number] 10mg Take 1 Univers (BENTYL) 10 1-19 capsule by it y of mg capsule 00:00: mouth [place] 00 every 8 Medical (eight) Branch hours as needed for Abdominal pain. ondansetron 2020-0 Yes [id number] 4mg Take 1 Univers 4 mg 1-19 tablet by ity of disintegrat 00:00: mouth [place] ing tablet 00 every 8 Medica l (eight) Branch hours as needed for Nausea and Vomiting (N/V). methylPREDN 2020-0 Yes [id number] Take by Univers ISolone 1-19 mouth ity of (MEDROL, 00:00: SEE-INSTRU [place] as JENNY,) 4 mg 00 CTIONS. Medica l tablets follow Branch package directions sucralfate 2020-0 Yes [id number] 1g Take 1 U nivers 1 gram 1-19 tablet by ity of tablet 00:00: mouth [place] 00 before Medical meals and Branch at bedtime. dicyclomine 2020-0 Yes [id number] 10mg Take 1 Univers (BENTYL) 10 1-19 capsule by it y of mg capsule 00:00: mouth [place] 00 every 8 Medical (eight) Branch hours as needed for Abdominal pain. ondansetron 2020-0 Yes [id number] 4mg Take 1 Univers 4 mg 1-19 tablet by ity of disintegrat 00:00: mouth [place] ing tablet 00 every 8 Medica l (eight) Branch hours as needed for Nausea and Vomiting (N/V). methylPREDN 2020-0 Yes [id number] Take by Univers ISolone 1-19 mouth ity of (MEDROL, 00:00: SEE-INSTRU [place] as JENNY,) 4 mg 00 CTIONS. Medica l tablets follow Branch package directions sucralfate 2019-0 2020- No [id number] 1g Take 1 Univers 1 gram 1-19 07-13 tablet by ity of tablet 00:00: 00:00 mouth [place] 00 :00 before Medical meals and Branch at bedtime. omeprazole 2019-0 2020- No [id number] 20mg Take 1 Univers 20 mg 1-19 02-19 capsule by ity of capsule 00:00: 05:59 mouth [place] 00 :00 daily for Medical 30 days. Branch metoclopram 2018-07 Yes [id number] 10mg Take 1 Univers nba HCl 10 1-18 tablet by ity of mg tablet 00:00: mouth [place] 00 every 6 Medical (six) Branch hours as needed for Nausea and Vomiting (N/V). metoclopram 2018-07 Yes [id number] 10mg Take 1 Univers nba HCl 10 1-18 tablet by ity of mg tablet 00:00: mouth [place] 00 every 6 Medical (six) Branch hours as needed for Nausea and Vomiting (N/V). metoclopram 2018-07 Yes [id number] 10mg Take 1 Univers nba HCl 10 1-18 tablet by ity of mg tablet 00:00: mouth [place] 00 every 6 Medical (six) Branch hours as needed for Nausea and Vomiting (N/V). metoclopram 2018-07 Yes [id number] 10mg Take 1 Univers nba HCl 10 1-18 tablet by ity of mg tablet 00:00: mouth [place] 00 every 6 Medical (six) Branch hours as needed for Nausea and Vomiting (N/V). metoclopram 2018-07 Yes [id number] 10mg Take 1 Univers nba HCl 10 1-18 tablet by ity of mg tablet 00:00: mouth [place] 00 every 6 Medical (six) Branch hours as needed for Nausea and Vomiting (N/V). metoclopram 2018-07 Yes [id number] 10mg Take 1 Univers nba HCl 10 1-18 tablet by ity of mg tablet 00:00: mouth [place] 00 every 6 Medical (six) Branch hours as needed for Nausea and Vomiting (N/V). metoclopram 2018-07 Yes [id number] 10mg Take 1 Univers nba HCl 10 1-18 tablet by ity of mg tablet 00:00: mouth [place] 00 every 6 Medical (six) Branch hours as needed for Nausea and Vomiting (N/V). metoclopram 2018-07 Yes [id number] 10mg Take 1 Univers nba HCl 10 1-18 tablet by ity of mg tablet 00:00: mouth [place] 00 every 6 Medical (six) Branch hours as needed for Nausea and Vomiting (N/V). metoclopram 2018-07 Yes [id number] 10mg Take 1 Univers nba HCl 10 1-18 tablet by ity of mg tablet 00:00: mouth [place] 00 every 6 Medical (six) Branch hours as needed for Nausea and Vomiting (N/V). dicyclomine 2018-07 2020- No [id number] 20mg Take 1 Univers (BENTYL) 20 1-18 [...] Nystatin Nystatin No 1applic TID [facility] [id number] [facility] - UNT/ML / UNT/ML / Memoria Triamcinolo Triamcinolo l ne ne (LUF/LI Acetonide 1 Acetonide 1 V /SA) MG/ML MG/ML Topical Topical Cream Cream Amoxicillin Amoxicillin No 875mg BID [facility] 875 MG Oral 875 MG Oral L ukes - Tablet Tablet Memoria l (LUF/LI V/SA) Vital Signs Vital Name Observation Time Observation Value Comments Source Systolic blood 2020-02-16 05:15:00 137 mm[Hg] [facility] Diastolic blood 2020-02-16 05:15:00 93 mm[Hg] [facility] Heart rate 2020-02-16 05:15:00 79 /min [facility] Respiratory rate 2020-02-16 05:15:00 18 /min [facility] Oxygen saturation in 2020-02-16 05:15:00 99 /min [facility] Arterial blood by [facility] Pulse oximetry [place] Body temperature 2020-02-16 01:23:00 37.28 Pennie [facility] Body weight 2020-02-16 01:23:00 78.019 kg [facility] BMI 2020-02-16 01:23:00 29.52 kg/m2 [facility] Systolic blood 2020-02-06 22:28:00 129 mm[Hg] [facility] Diastolic blood 2020-02-06 22:28:00 93 mm[Hg] Unive rsity of pressure [place] [facility] Heart rate 2020-02-06 22:28:00 100 /min Universi ty of [place] [facility] Body temperature 2020-02-06 22:28:00 36.72 Pennie Univ ersity of [place] [facility] Respiratory rate 2020-02-06 22:28:00 18 /min Univ ersity of [place] [facility] Body weight 2020-02-06 22:28:00 79.379 kg Universi ty of [place] [facility] BMI 2020-02-06 22:28:00 30.04 kg/m2 Universi ty [facility] [place] [facility] Oxygen saturation in 2020-02-06 22:28:00 98 /min University of Arterial blood by [place] [employer] tami Pulse oximetry Branch Systolic blood 2020-01-19 18:07:00 125 mm[Hg] Univer sity of pressure [place] [facility] Diastolic blood 2020-01-19 18:07:00 83 mm[Hg] Unive rsity of pressure [place] [facility] Heart rate 2020-01-19 18:07:00 83 /min [facility]i ty [facility] [place] [facility] Body temperature 2020-01-19 18:07:00 37.11 Pennie Univ ers[facility] [place] [facility] Respiratory rate 2020-01-19 18:07:00 17 /min Univ ersity of [place] [facility] Body height 2020-01-19 18:07:00 162.6 cm Universi ty [facility] [place] [facility] Body weight 2020-01-19 18:07:00 79.379 kg Universi ty [facility] [place] [facility] BMI 2020-01-19 18:07:00 30.04 kg/m2 [facility]i ty [facility] [place] [facility] Oxygen saturation in 2020-01-19 18:07:00 98 /min University of Arterial blood by [place] [employer] tami Pulse oximetry Branch Systolic blood 2019-09-20 00:00:00 124 mm[Hg] Univer sity of pressure [place] [facility] Diastolic blood 2019-09-20 00:00:00 75 mm[Hg] Unive rsity of pressure [place] [facility] Heart rate 2019-09-20 00:00:00 74 /min Universi ty [facility] [place] [facility] Respiratory rate 2019-09-20 00:00:00 16 /min Univ ersity of [place] [facility] Oxygen saturation in 2019-09-20 00:00:00 95 /min University of Arterial blood by [place] Medi tami Pulse oximetry Branch Body temperature 2019-09-19 22:27:00 36.56 Pennie [facility] weight 2019-09-19 22:27:00 81.647 kg [facility] BMI 2019-09-19 22:27:00 30.90 kg/m2 [facility] Systolic blood 2019-07-28 03:49:00 123 mm[Hg] Univer sity of pressure [facility] Diastolic blood 2019-07-28 03:49:00 90 mm[Hg] Unive rsity of pressure [facility] Heart rate 2019-07-28 03:49:00 72 /min [facility] Body temperature 2019-07-28 03:49:00 36.56 Pennie [facility] Respiratory rate 2019-07-28 03:49:00 18 /min [facility] Oxygen saturation in 2019-07-28 03:49:00 95 /min [facility] Arterial blood by [facility] Pulse oximetry [place] Body height 2019-07-28 00:55:00 162.6 cm [facility] Body weight 2019-07-28 00:55:00 81.647 kg [facility] BMI 2019-07-28 00:55:00 30.90 kg/m2 [facility] Respiratory Rate 2017-06-12 19:50:00 18 /min [facility] (LUF/ELISABETH/SA) O2% BldC Oximetry 2017-06-12 19:50:00 98 % [facility] (LUF/ELISABETH/SA) BP Systolic 2017-06-12 19:50:00 128 mm[Hg] [facility] (LUF/ELISABETH/SA) BP Diastolic 2017-06-12 19:50:00 68 mm[Hg] [facility] (LUF/ELISABETH/SA) Body Temperature 2017-06-12 17:02:00 98 F [facility] (LUF/ELISABETH/SA) Height 2017-06-12 17:02:00 65 in [facility] (LUF/ELISABETH/SA) Weight Measured 2017-06-12 17:02:00 174.98 lbs LEEANNE S t [facility] (LUF/ELISABETH/SA) BMI (Body Mass 2017-06-12 17:02:[address] [facility] Index[facility] (LUF/ELISABETH/SA) Procedures Procedure Date / Time Performing Clinician Source Performed CT ABDOMEN PELVIS W 2020-02-16 02:52:29 Jamaal Trotter [facility] CONTRAST Medical Branch LIPASE 2020-02-16 02:01:00 Jamaal Trotter [facility] HEPATIC FUNCTION PANEL 2020-02-16 02:01:00 Jamaal Trotter [facility] ([id number]) (ALB,T.PRO,BILI Medical Branch T,BU/BC,ALT,AST,ALK PHOS) BASIC METABOLIC PANEL 2020-02-16 02:01:00 Jamaal Trotter [facility] (NA, K, CL, CO2, Medical Branch GLUCOSE, BUN, CREATININE, CA) CBC WITH DIFF 2020-02-16 02:01:00 Jamaal Trotter [facility] URINALYSIS 2020-02-16 02:01:00 Jamaal Trotter [facility] CONSENT/REFUSAL FOR 2020-02-06 22:17:29 [facility], [facility] Name Medical Branch XR KUB 2019-09-20 00:34:59 Swati Limon [facility] COMP. METABOLIC PANEL 2019-09-20 00:13:00 Swati Limon Un [facility] ([id number]) [facility] CBC WITH DIFFERENTIAL 2019-09-20 00:13:00 Swati Limon [facility] URINALYSIS 2019-09-20 00:13:00 Swati Limon [facility] NOTICE OF PRIVACY 2019-09-19 22:17:17 Doctor Unassigned, No [facility] Name Medical Branch CONSENT/REFUSAL FOR 2019-09-19 22:17:05 Doctor Unassigned, No Un iversity [facility] DIAGNOSIS AND TREATMENT Name Medical Branch CT ABDOMEN PELVIS W 2019-07-28 02:46:48 Sabi Berman [facility] CONTRAST Medical Branch LIPASE 2019-07-28 01:34:00 Berman, Sabi [facility] Branch COMP. METABOLIC PANEL 2019-07-28 01:34:00 [facility] [place] [facility] ([id number]) [facility] CBC WITH DIFFERENTIAL 2019-07-28 01:34:00 Sabi Berman [facility] CONSENT/REFUSAL FOR 2019-07-28 00:45:36 Doctor Unassigned, No Un [facility] DIAGNOSIS AND TREATMENT Name Medical Branch Encounters Start End Encounter Admission Attending Care Care Encounter Source Date/Time Date/Time Type Type Clinicians Facility Department ID 2021-05-06 Emergency [facility] [id number] Univers 11:24:52 ity of [facility] 2021-05-06 Emergency [facility] [id number] Univers 10:10:15 ity of [facility] 2021-06-22 2021-06-22 Outpatient R [facility] [id number] Univers 20:15:00 20:15:00 [id number] ity [facility] 2021-06-22 2021-06-22 Outpatient R UNKNOWN, [facility] [id number] Univers 20:15:00 20:15:00 ATTENDING ity [facility] 2020-02-15 2020-02-16 Emergency Jamaal Trotter [facility] [id number] Univers 20:25:00 00:23:00 T Kelsi [id number] i ty of [place] 4[place]2.[place] [id number] [place] [address] Branch 2020-02-06 2020-02-06 Emergency Christine [facility] [id number] Univers 17:30:03 18:06:00 Jamaal Dolan [id number] i ty [place] 4[place]2.[place] [id number] [facility] 084 Branch 2020-02-06 2020-02-06 Orders Doctor BENAVIDES 1.2.840.114 [id number] Univers 00:00:00 00:00:00 Only Unassigned, CHARLA [id number] ity of [place] [facility] 4.2.7.2.686 Kristian [phone] [place] [address] Branch 2020-02-03 2020-02-03 Telephone Pob1, Acute [facility] 1.2.840.114 [id number] Univers 00:00:00 00:00:00 [facility] [id number] ity of [place] 4.2.7.2.686 Kristian as Professio [id number] [address] Office Building [facility] 2020-01-19 2020-01-19 Urgent Pob1, Acute Care Clinic [facility] 1. 2.840.114 [id number] Univers 13:01:51 13:40:36 [facility] [id number] ity of [place] 4.2.7.2.686 Kristian as Professio [id number] [address] 2020-01-19 2020-01-19 Outpatient R [facility] [id number] Univers 13:00:00 13:00:00 [id number] ity of [facility] 2020-01-19 2020-01-19 Outpatient R [facility] [id number] Univers 13:00:00 13:00:00 ity of [facility] 2020-01-19 2020-01-19 Letter Doctor MAKAYLA 1.2.840.114 [id number] Univers 00:00:00 00:00:00 (Out) Unassigned, CHARLA [id number] [facility] [facility] 4.2.7.2.686 Kristian as [id number] [address] 2020-01-09 2020-01-09 Outpatient R [facility] [id number] Univers 09:40:00 09:40:00 [id number] ity of [facility] 2020-01-09 2020-01-09 Outpatient R [facility] [id number] Univers 09:40:00 09:40:00 ity of [facility] 2019-09-19 2019-09-19 Emergency X MARSHA [facility] ERT [id number] Univers 18:38:25 20:38:00 SWATI ity [facility] 2019-09-19 2019-09-19 Emergency Marsha [facility] 1.2.840.114 [id number] Univers 18:38:25 20:38:00 Swati Dolan [id number] ity of [place] [id number] [facility] [id number] [facility] 084 Branch 2019-09-19 2019-09-19 Orders Doctor MAKAYLA 1.2.840.114 [id number] Univers 00:00:00 00:00:00 Only Unassigned, CHARLA [id number] ity of [place] [facility] [id number] [facility] 009 Branch 2019-07-27 2019-07-27 Emergency Berman, [facility] [id number] Univers 18:49:37 21:53:00 Sabi Dolan [id number] i ty of [place] [id number] [facility] [id number] [place] [address] Branch 2017-06-12 2017-06-12 STRAIN 1 RENNER, [facility] [id number] 16:57:00 19:55:00 [facility] kes - FASCIA , [address] [facility] TENDON [facility] (LUF/LI ST, PATEL V/SA) [facility] [place] [address] Results Test Description Test Time Test Results [...] Interpretation Comme nts NA (test code = 5887484946) 138 mmol/L 135-145 K (test code = 2092644524) 3.8 mmol/L 3.5-5 CL (test code = 1789393452) 105 mmol/L 98-108 CO2 TOTAL (test code = 3211317707) 25 mmol/L 23-31 AGAP (test code = 3324037445) 2-16 BUN (test code = 2531369421) 11 mg/dL 7-23 GLUCOSE (test code = 2662746474) 111 mg/dL 70-110 H CREATININE (test code = 0.95 mg/dL 0.6-1.25 4456378305) CALCIUM (test code = 7240681833) 9.4 mg/dL 8.6-10.6 eGFR Calculation (Non- mL/min/1.73m2 Israeli) (test code = 6709316415) eGFR Calculation ( mL/min/1.73m2 Israeli) (test code = 2572616250) [place] (test code = [place]) Association of [...] tests). Lab Interpretation (test code = Abnormal 43741-9) [facility] (ALB, T.PRO, BILI T, BU/BC, ALT, AST, ALK PHOS)2020-02-16 02:37:00 Test Item Value Reference Range Interpretation Comments TOTAL BILI (test code = 4418732097) 0.2 mg/dL 0.1-1.1 BILI UNCON (test code = 7334793033) 0.3 mg/dL 0.1-1.1 BILI CONJ (test code = 4065614544) 0.0 mg/dL 0-0.3 T PROTEIN (test code = 4644753347) 7.4 g/dL 6.3-8.2 ALBUMIN (test code = 1316201973) 4.5 g/dL 3.5-5 ALK PHOS (test code = 7695903625) 70 U/L 34-122 ALTv (test code = 1742-6) 19 U/L 5-50 AST(SGOT) (test code = 1474440691) 22 U/L 13-40 Lab Interpretation (test code = Normal 58776-7) [facility] [id number] 02:37:00 Test Item Value Reference Range Interpretation Comments LIPASE (test code = 8702276466) 71 U/L 0-220 Lab Interpretation (test code = Normal 52358-9) [facility]00 Test Item Value Reference Range Interpretation Comments APPEARANCE (test code = Clear Clear 7299802716) COLOR (test code = Yellow Yellow 1879133087) PH (test code = 4.8-8.0 3614430059) SP GRAVITY (test code = 1.003-1.030 0107573414) GLU U QUAL (test code = Normal Normal 8239901212) BLOOD (test code = Negative Negative 0428242874) KETONES (test code = 5 mg/dL Negative A 3609904201) PROTEIN (test code = Negative Negative 2887-8) UROBILIN (test code = 2.0 mg/dL Normal A 6698123007) BILIRUBIN (test code = Negative Negative 1283478022) NITRITE (test code = Negative Negative 7254959753) LEUK EMMANULE (test code = Negative Negative 5722417548) RBC/HPF (test code = <1 See_Comment [Autom ated message] 4523807654) The system [employer] generated this result transmit clay reference range : 0 - 3 HPF. The refe rence range was not u sed to interpret th is result as normal/abnormal . WBC/HPF (test code = <1 See_Comment [Autom ated message] 4015182220) The system [employer] generated this result transmit clay reference range : 0 - 5 HPF. The refe rence range was not u sed to interpret th is result as normal/abnormal . BACTERIA (test code = Negative Negative 2441645736) MUCOUS (test code = Slight Negative LPF A 8224174424) SQ EPITH (test code = <1 HPF 4868229192) Lab Interpretation (test Abnormal code = 72865-9) [facility] with [id number] 02:23:00 Test Item Value Reference Range Interpretation [...] (test code = 35.2 fL 38.5-51.6 L 83705-5) RDW-CV (test code = 11.3 % 12.1-15.4 L 788-0) PLT (test code = See_Comment [Automated 777-3) message] The sy stem which generated this result transmitted reference range : 150 - 328 10*3/ ?L. The reference r abhijit was not used to interpret this result as normal/abnormal . MPV (test code = 10.0 fL 9.8-13 90535-2) NRBC/100 WBC (test See_Comment [Automat ed code = 3270320855) message] The system which generated this result transmitted reference range : 0.0 - 10.0 /100 WBCs. The refer ence range was not u sed to interpret th is result as normal/abnormal . NRBC x10^3 (test code <0.01 See_Comment [Auto mated = 1500834221) message] The s ystem which generated this result transmitted reference range : 10*3/?L. The reference range was not used to interpret this result as normal/abnormal . GRAN MAT (NEUT) % 60.4 % (test code = 770-8) IMM GRAN % (test code 0.10 % = 3536523687) LYMPH % (test code = 32.6 % 736-9) MONO % (test code = 6.3 % 5905-5) EOS % (test code = 0.5 % 713-8) BASO % (test code = 0.1 % 706-2) GRAN MAT x10^3(ANC) 5.29 10*3/uL 1.99-6.95 (test code = 7458236038) IMM GRAN x10^3 (test <0.03 0-0.06 code = 8233703223) LYMPH x10^3 (test code 2.85 10*3/uL 1.09-3.23 = 731-0) MONO x10^3 (test code 0.55 10*3/uL 0.36-1.02 = 742-7) EOS x10^3 (test code = 0.04 10*3/uL 0.06-0.53 L 711-2) BASO x10^3 (test code <0.03 0.01-0.09 = 704-7) Lab Interpretation Abnormal (test code = 50564-3) [facility]00 Test Item Value Reference Range Interpretation Comments APPEARANCE (test code = Clear Clear 2384472283) COLOR (test code = Straw Yellow A 0457271172) PH (test code = 4.8-8.0 7429174034) SP GRAVITY (test code = 1.003-1.030 4784034649) GLU U QUAL (test code = Normal Normal 6509733984) BLOOD (test code = Negative Negative 4685249793) KETONES (test code = Negative Negative 9652836354) PROTEIN (test code = Negative Negative 2887-8) UROBILIN (test code = Normal Normal 8539751578) BILIRUBIN (test code = Negative Negative 2025663784) NITRITE (test code = Negative Negative 6320323819) LEUK EMMANUEL (test code = Negative Negative 3607815847) RBC/HPF (test code = See_Comment [Autom ated message] 3123914016) The system [employer] generated this result transmitted ref erence range: 0 - 3 HP F. The reference range was not used to int erpret this result as normal/abnormal . WBC/HPF (test code = <1 See_Comment [Autom ated message] 8996596841) The system [employer] generated this result transmitted ref erence range: 0 - 5 HP F. The reference range was not used to int erpret this result as normal/abnormal . BACTERIA (test code = Negative Negative 8758930851) MUCOUS (test code = Slight Negative LPF A 4064750533) Lab Interpretation (test Abnormal code = 78854-5) [facility] METABOLIC PANEL ([id number])2019-09-20 00:48:00 Test Item Value Reference Range Interpretation Comments NA (test code = 141 mmol/L 135-145 1038746357) K (test code = 3.9 mmol/L 3.5-5 0964016582) CL (test code = 106 mmol/L 98-108 1977651555) CO2 TOTAL (test code = 25 mmol/L 23-31 2169858665) AGAP (test code = 2-16 1177197933) BUN (test code = 14 mg/dL 7-23 8524931702) GLUCOSE (test code = 101 mg/dL 70-110 2083447264) CREATININE (test code 1.03 mg/dL 0.6-1.25 = 3497541099) TOTAL BILI (test code 0.3 mg/dL 0.1-1.1 = 7159162952) CALCIUM (test code = 9.9 mg/dL 8.6-10.6 1717999335) T PROTEIN (test code = 6.8 g/dL 6.3-8.2 1625720497) ALBUMIN (test code = 4.7 g/dL 3.5-5 9109749623) ALK PHOS (test code = 63 U/L 34-122 4424178482) ALTv (test code = 20 U/L 5-50 1742-6) AST(SGOT) (test code = 20 U/L 13-40 7198180466) eGFR Calculation mL/min/1.73m2 (Non-) (test code = 0567955162) eGFR Calculation mL/min/1.73m2 () (test code = 2481054589) [place]ERT[place] (test code = EVERT[place]) Association of [...] or urine or abnormalities in imaging tests). [facility] WITH [id number] 00:31:00 Test Item Value Reference Range Interpretation Comments WBC (test code = See_Comment [Automated 1137-2) message] The sy stem which generated this result transmitted reference range : 4.20 - 10.70 10*3/?L. The reference range was not used to interpret this result as normal/abnormal . RBC (test code = See_Comment [Automated 792-8) message] The sy stem which generated this [...] (test code = 38.2 fL 38.5-51.6 L 22126-2) RDW-CV (test code = 12.0 % 12.1-15.4 L 788-0) PLT (test code = See_Comment [Automated 777-3) message] The sy stem which generated this result transmitted reference range : 150 - 328 10*3/ ?L. The reference r abhijit was not used to interpret this result as normal/abnormal . MPV (test code = 10.0 fL 9.8-13 06892-9) NRBC/100 WBC (test See_Comment [Automat ed code = 6673605393) message] The system which generated this result transmitted reference range : 0.0 - 10.0 /100 WBCs. The refer ence range was not u sed to interpret th is result as normal/abnormal . NRBC x10^3 (test code <0.01 See_Comment [Auto mated = 6370346086) message] The s ystem which generated this result transmitted reference range : 10*3/?L. The reference range was not used to interpret this result as normal/abnormal . GRAN MAT (NEUT) % 60.6 % (test code = 770-8) IMM GRAN % (test code 0.40 % = 4221669130) LYMPH % (test code = 31.9 % 736-9) MONO % (test code = 6.1 % 5905-5) EOS % (test code = 0.8 % 713-8) BASO % (test code = 0.2 % 706-2) GRAN MAT x10^3(ANC) 5.02 10*3/uL 1.99-6.95 (test code = 3897650656) IMM GRAN x10^3 (test 0.03 10*3/uL 0-0.06 code = 4750995973) LYMPH x10^3 (test code 2.65 10*3/uL 1.09-3.23 = 731-0) MONO x10^3 (test code 0.51 10*3/uL 0.36-1.02 = 742-7) EOS x10^3 (test code = 0.07 10*3/uL 0.06-0.53 711-2) BASO x10^3 (test code <0.03 0.01-0.09 = 704-7) Lab Interpretation Abnormal (test code = 00780-0) [facility] [id number] 02:58:35Impression: 1. Fluid-filled, nondilated distal small bowel loops with mucosal foldthickening, suggestive of enteritis.2. Normal appendix. No free air or free fluid. RL: 2824AFC: [id number] End of Report Exam: CT Abdomen and [...] No free air or free fluid.RL: 2824AFC: 73957Rzv of Report [facility] METABOLIC PANEL (73935)2019-07-28 02:28:00 Test Item Value Reference Range Interpretation Comments NA (test code = 140 mmol/L 135-145 2033686203) K (test code = 3.8 mmol/L 3.5-5 9503154460) CL (test code = 107 mmol/L 98-108 5316380162) CO2 TOTAL (test code = 24 mmol/L 23-31 5593710110) AGAP (test code = 2-16 0341505044) BUN (test code = 14 mg/dL 7-23 1175475056) GLUCOSE (test code = 119 mg/dL 70-110 H 5938268678) CREATININE (test code = 1.03 mg/dL 0.6-1.25 8723102884) TOTAL BILI (test code = 0.2 mg/dL 0.1-1.2 4481035129) CALCIUM (test code = 9.6 mg/dL 8.6-10.6 6955413499) T PROTEIN (test code = 7.8 g/dL 6.3-8.2 4797890284) ALBUMIN (test code = 4.9 g/dL 3.5-5 2753684481) ALK PHOS (test code = 69 U/L 34-122 1977503655) ALTv (test code = 47 U/L 5-50 1742-6) AST(SGOT) (test code = 30 U/L 13-40 4580322787) eGFR Calculation mL/min/1.73m2 (Non-) (test code = 8419277413) eGFR Calculation mL/min/1.73m2 () (test code = 7776779415) EVERT[place] (test code = EVERTON) Association of [...] tests). Lab Interpretation Abnormal (test code = 10310-0) [facility] 02:28[facility]00 Test Item Value Reference Range Interpretation Comments LIPASE (test code = 4487846361) 103 U/L 0-220 Lab Interpretation (test code = Normal 25129-5) [facility] WITH [id number] 02:09:00 Test Item Value Reference Range Interpretation [...] (test code = 35.8 fL 38.5-51.6 L 32834-5) RDW-CV (test code = 11.8 % 12.1-15.4 L 788-0) PLT (test code = See_Comment [Automated 777-3) message] The sy stem which generated this result transmitted reference range : 150 - 328 10*3/ ?L. The reference r abhijit was not used to interpret this result as normal/abnormal . MPV (test code = 10.2 fL 9.8-13 97494-3) NRBC/100 WBC (test See_Comment [Automat ed code = 3118634120) message] The system which generated this result transmitted reference range : 0.0 - 10.0 /100 WBCs. The refer ence range was not u sed to interpret th is result as normal/abnormal . NRBC x10^3 (test code <0.01 See_Comment [Auto mated = 6777336008) message] The s ystem which generated this result transmitted reference range : 10*3/?L. The reference range was not used to interpret this result as normal/abnormal . GRAN MAT (NEUT) % 59.2 % (test code = 770-8) IMM GRAN % (test code 0.20 % = 4022238105) LYMPH % (test code = 31.1 % 736-9) MONO % (test code = 8.5 % 5905-5) EOS % (test code = 0.8 % 713-8) BASO % (test code = 0.2 % 706-2) GRAN MAT x10^3(ANC) 5.01 10*3/uL 1.99-6.95 (test code = 3494748453) IMM GRAN x10^3 (test <0.03 0-0.06 code = 7496469175) LYMPH x10^3 (test code 2.63 10*3/uL 1.09-3.23 = 731-0) MONO x10^3 (test code 0.72 10*3/uL 0.36-1.02 = 742-7) EOS x10^3 (test code = 0.07 10*3/uL 0.06-0.53 711-2) BASO x10^3 (test code <0.03 0.01-0.09 = 704-7) Lab Interpretation Abnormal (test code = 49091-9) [facility] W/O [id number] 19:08:00NPO 4 hours. Do not withhold medsProcedure: [...] MD 06/12/20177:01 PMDictated By: ENZO CABRERADate: 06/12/2017 19:[id number] 18:51:00 Test Item Value Reference Range Interpretation [...] 4 - SerumAlbu min)] EGFR if >60 Israeli (test code mL/min/1.73m\\ = EGFRAA) S\\2 EGFR if Non- >60 Estimate d Glomerular Israeli (test code mL/min/1.73m\\ Filtrat ion Rate (eGFR) [...] 11 code = GAP) CBC WITH AUTO [id number] 18:02:00 Test Item Value Reference Range Interpretation [...] = 0 /100WBC 0-2 NRBC_AUTO) URINALYSIS WITHOUT [id number] 17:32:00 Test Item Value Reference Range Interpretation Comments Color (test code = UCOLR) Yellow Lt. Yellow A Clarity (test code = UCLAR) Clear Glucose (test code = UGLUC) Negative Negative N Bilirubin (test code = UBILI) Negative Negative N Ketones (test code = UKET) Negative Negative N Specific [place] (test code = 1.015 1.005-1.030 A USPGR) [...]
[2021-08-31] MEDS ORDERED: NA CHLORIDE 0.9% 1,000 ML ONE (21:29)
[2021-08-31] MEDS ORDERED: ONDANSETRON 4 MG/2 ML VIAL ONE (21:29)
[2021-08-31] MEDS ORDERED: MORPHINE 4 MG/ML SYR ONE ×2 (21:29→23:00)
[2021-08-31 21:31] LABS: Urine Blood Negative (Negative); Urine Glucose Negative (Negative); Urine Protein Negative (Negative)
--- NOTE | 2021-08-31 21:53 | RAD REPORT ---
EXAM DESCRIPTION: CT - Abdomen Pelvis Wo Contrast - 08/31/2021 9:43 pm CLINICAL HISTORY: Abdominal pain. left side abdomen pain COMPARISON: Abdomen Pelvis W Contrast dated 07/22/2019 TECHNIQUE: CT imaging of the abdomen and pelvis was performed without contrast. Solid organ, bowel a nd vascular assessment is limited due to lack of IV and oral contrast. All CT scans are performed using dose optimization technique as appropriate and may include automated exposure control or mA/KV adjustment according to patient size. FINDINGS: The lower lung manning are clear. The liver, spleen, pancreas, adrenal glands and kidneys are within normal limits for a limited non-co ntrast examination. No bowel obstruction, free air, free fluid or abscess. The appendix is normal. The osseous structures are within normal limits. IMPRESSION: No acute intra-abdominal or pelvic findings. A limited non-contrast examination was performed as detailed.
[2021-08-31 22:33] LABS: Absolute Lymphocytes (CBC) 2.7 K/uL (0.7-4.9); Hematocrit 45.7 % (39.6-49.0); Lymphocytes % 26.9 % (15.3-44.8); MPV 8.2 fL (7.6-11.3); RBC Red Blood Cell Count 5.13 M/uL (4.33-5.43)
[2021-08-31 22:40] LABS: ALT/SGPT 47 U/L (12-78); AST/SGOT 16 U/L (15-37); Albumin 3.9 g/dL (3.4-5.0); Alkaline Phosphatase 92 U/L (45-117); BUN Blood Urea Nitrogen 9 mg/dL (7-18); Bicarbonate 23 mmol/L (21-32); Bilirubin Direct < 0.1 mg/dL (0-0.2); Bilirubin Total 0.2 mg/dL (0.2-1.0); Glucose Level 103 mg/dL (74-106); Lipase 125 U/L (73-393); Protein, Total 7.3 g/dL (6.4-8.2); Sodium Level 138 mmol/L (136-145)
[2021-08-31 22:53] LABS: Urine Bacteria <20 /HPF (NONE SEEN); Urine RBC <5 /HPF (NONE SEEN)
--- NOTE | 2021-08-31 23:29 | EDPHYS ---
Physician Documentation [facility] Name: Sunny Angel Age: 30 yrs Sex: Male : 1990 Arrival Date: 08/31/2021 Time: 20:39 Bed 6 Private MD: Miguel Ángel Keys ED Physician Fredi Kelley HPI: 08/31 21:25 This 30 yrs old Male presents to ER via Ambulatory with complaints of Mouth Problem, cp Swollen Glands, Flank Pain. 21:25 The patient presents with pain, swelling. The problem is located in the right upper jaw.cp 21:25 The patient presents with abdominal pain in the left lower quadrant. Onset: The cp symptoms/episode began/occurred today. The symptoms do not radiate. Associated signs and symptoms: Pertinent negatives: fever, vomiting, diarrhea, urinary symptoms. Historical: - Allergies: 21:05 Latex, Natural Rubber; as6 21:05 SEAFOOD; as6 - Home Meds: 21:05 sertraline 100 mg oral tab 1 tab once daily [Active]; as6 - PMHx: 21:05 depressive disorder; as6 - PSHx: 21:05 oral SX; hernia; as6 - Immunization history:: Client reports having NOT received the Covid vaccine. - Social history:: Smoking status: Patient reports the use of cigarette tobacco products, smokes one-half pack cigarettes per day. ROS: 21:28 Constitutional: Negative for body aches, chills, fever. cp 21:28 ENT: Positive for dental pain. cp 21:28 Abdomen/GI: Positive for abdominal pain. 21:28 All other systems are negative. Exam: 21:30 Constitutional: The patient appears in no acute distress, alert, awake, non-toxic, well cp developed, well nourished. 21:30 Head/Face: Normocephalic, atraumatic. cp 21:30 Eyes: Periorbital structures: appear normal, Conjunctiva: normal, no exudate, no injection, Sclera: no appreciated abnormality, Lids and lashes: appear normal, bilaterally. 21:30 ENT: External ear(s): are unremarkable, Ear canal(s): are normal, clear, TM's: dullness, bilaterally, Nose: is normal, Mouth: Lips: moist, Oral mucosa: pink and intact, moist, Posterior pharynx: Airway: no evidence of obstruction, patent, Dental exam: dental caries, that is severe, diffusely, missing teeth, diffusely, pain, that is moderate, specifically in the upper right first molar (#3). 21:30 Neck: ROM/movement: is normal, is supple, without pain, no range of motions limitations. 21:30 Chest/axilla: Inspection: normal. 21:30 Cardiovascular: Rate: normal, Rhythm: regular. 21:30 Respiratory: the patient does not display signs of respiratory distress, Respirations: normal, no use of accessory muscles, no retractions, labored breathing, is not present, Breath sounds: are clear throughout, no decreased breath sounds, no stridor, no wheezing. 21:30 Abdomen/GI: Inspection: abdomen appears normal, Bowel sounds: active, all quadrants, Palpation: soft, in all quadrants, moderate abdominal tenderness, in the left lower quadrant. 21:30 Back: pain, is absent, ROM is normal. Vital Signs: 21:02 BP 130 / 77; Pulse 84; Resp 16 S; Temp 98.4(O); Pulse Ox 97% on R/A; Weight 81.65 kg as6 (R); Height 5 ft. 4 in. (162.56 cm) (R); Pain 7/10; 22:14 BP 115 / 96; Pulse 66; Resp 16 S; Pulse Ox 97% on R/A; as6 23:33 BP 116 / 78; Pulse 71; Resp 16; Pulse Ox 98% on R/A; st1 21:02 Body Mass Index 30.90 (81.65 kg, 162.56 cm) as6 MDM: 21:16 Patient medically screened. cp 23:28 Data reviewed: vital signs, nurses notes, lab test result(s), radiologic studies, CT cp scan. 23:28 Counseling: I had a detailed discussion with the patient and/or guardian regarding: the cp historical points, exam findings, and any diagnostic results supporting the discharge/admit diagnosis, lab results, radiology results, the need for outpatient follow up, a dentist, to return to the emergency department if symptoms worsen or persist or if there are any questions or concerns that arise at home. 08/31 21:19 Order name: Basic Metabolic Panel; Complete Time: 22:53 cp 08/31 21:19 Order name: CBC with Diff; Complete Time: 22:53 cp 08/31 21:19 Order name: Hepatic Function; Complete Time: 22:53 cp 08/31 21:19 Order name: Lipase; Complete Time: 22:53 cp 08/31 21:19 Order name: Urine Microscopic Only; Complete Time: 22:58 cp 08/31 22:58 Interpretation: Reviewed. cp 08/31 21:30 Order name: Urine Dipstick-Ancillary; Complete Time: 21:55 EDMS 08/31 21:19 Order name: IV Saline Lock; Complete Time: 21:39 cp 08/31 21:19 Order name: Labs collected and sent; Complete Time: 21:39 cp 08/31 21:33 Order name: CT Abd/Pelvis - Without Contrast; Complete Time: 21:55 cp 08/31 21:56 Interpretation: Report reviewed. cp 08/31 21:19 Order name: Urine Dipstick-Ancillary (obtain specimen); Complete Time: 21:30 cp Administered Medications: 21:38 Drug: morphine 4 mg Route: IVP; Site: right hand; as6 21:38 Drug: Zofran (Ondansetron) 4 mg Route: IVP; Site: right hand; as6 21:39 Drug: NS 0.9% 1000 ml Route: IV; Rate: 1 bolus; Site: right hand; as6 22:59 Drug: morphine 4 mg Route: IVP; Site: right hand; st1 Disposition Summary: 08/31/21 23:28 Discharge Ordered Location: Home cp Problem: an ongoing problem cp Symptoms: have improved cp Condition: Stable cp Diagnosis - Abdominal pain, unspecified cp - Disorder of teeth and supporting structures, unspecified cp Followup: cp - With: Private Physician - When: 2 - 3 days - Reason: Recheck today's complaints Discharge Instructions: - Discharge Summary Sheet cp - Abdominal Pain, Adult cp - Dental Pain cp Forms: - Medication Reconciliation Form cp - Thank You Letter cp - Antibiotic Education cp - Prescription Opioid Use cp Prescriptions: - Amoxicillin 875 mg Oral Tablet - take 1 tablet by ORAL route every 12 hours for 10 days; 20 tablet; Refills: 0, cp Product Selection Permitted - Zofran 4 mg Oral Tablet - take 1 tablet by ORAL route every 12 hours As needed; 20 tablet; Refills: 0, cp Product Selection Permitted - dicyclomine 20 mg Oral Tablet - take 1 tablet by ORAL route 4 times per day; 30 tablet; Refills: 0, Product cp Selection Permitted Addendum: 09/01/2021 23:46 Co-signature as Attending Physician, Fredi Kelley MD. r n Signatures: Dispatcher [employer] EDFredi Gordon MD MD rn Tyrone Rader, Renny Blanco cp RN RN as6 Mary Erazo RN RN st1 Corrections: (The following items were deleted from the chart) 08/31 21:35 21:21 Abdomen Pelvis W Con+CT.RAD.BRZ ordered. EDRI EDRI
--- NOTE | 2021-08-31 23:29 | ER ---
Nurse's Notes [facility] Name: Sunny Angel Age: 30 yrs Sex: Male : 1990 Arrival Date: 08/31/2021 Time: 20:39 Bed 6 Private MD: Miguel Ángel Keys Diagnosis: Abdominal pain, unspecified;Disorder of teeth and supporting structures, unspecified Presentation: 08/31 21:02 Chief complaint: Patient states: "I have swollen lymph node and mouth pain, and as6 abdominal pain" c/o pain to right side of face and pain to LLQ, vomiting. Coronavirus screen: At this time, the client does not indicate any symptoms associated with coronavirus-19. Ebola Screen: No symptoms or risks identified at this time. Initial Sepsis Screen: Does the patient meet any 2 criteria? No. Patient's initial sepsis screen is negative. Does the patient have a suspected source of infection? No. Patient's initial sepsis screen is negative. Risk Assessment: Do you want to hurt yourself or someone else? Patient reports no desire to harm self or others. Onset of symptoms was August 25, 2021. 21:02 Method Of Arrival: Ambulatory as6 21:02 Acuity: GILBERT 3 as6 Triage Assessment: 21:07 General: Appears uncomfortable, Behavior is calm, cooperative. Pain: Complains of pain as6 in left lower quadrant. Pain: Complains of pain in right jaw. Historical: - Allergies: 21:05 Latex, Natural Rubber; as6 21:05 SEAFOOD; as6 - Home Meds: 21:05 sertraline 100 mg oral tab 1 tab once daily [Active]; as6 - PMHx: 21:05 depressive disorder; as6 - PSHx: 21:05 oral SX; hernia; as6 - Immunization history:: Client reports having NOT received the Covid vaccine. - Social history:: Smoking status: Patient reports the use of cigarette tobacco products, smokes one-half pack cigarettes per day. Screenin:07 Abuse screen: Denies threats or abuse. Denies injuries from another. Nutritional as6 screening: No deficits noted. Tuberculosis screening: No symptoms or risk factors identified. Fall Risk None identified. Assessment: 21:08 General: Appears uncomfortable, Behavior is calm, cooperative. Pain: Complains of pain as6 in right jaw and left lower quadrant. GI: Reports lower abdominal pain, vomiting. : Denies burning with urination, urinary frequency. EENT: Poor dentition noted. Vital Signs: 21:02 BP 130 / 77; Pulse 84; Resp 16 S; Temp 98.4(O); Pulse Ox 97% on R/A; Weight 81.65 kg as6 (R); Height 5 ft. 4 in. (162.56 cm) (R); Pain 7/10; 22:14 BP 115 / 96; Pulse 66; Resp 16 S; Pulse Ox 97% on R/A; as6 23:33 BP 116 / 78; Pulse 71; Resp 16; Pulse Ox 98% on R/A; st1 21:02 Body Mass Index 30.90 (81.65 kg, 162.56 cm) as6 ED Course: 20:39 Patient arrived in ED. es 20:41 Miguel Ángel Keys MD is Private Physician. es 20:55 Tyrone Rader PA is PHCP. cp 20:55 Fredi Kelley MD is Attending Physician. cp 21:01 Renny Guzman, SAM is Primary Nurse. as6 21:05 Triage completed. as6 21:06 Arm band placed on. as6 21:07 Bed in low position. Call light in reach. Side rails up X 1. Pulse ox on. NIBP on. Warm as6 blanket given. 21:30 Urine Microscopic Only Sent. st1 21:39 Basic Metabolic Panel Sent. as6 21:39 CBC with Diff Sent. as6 21:39 Hepatic Function Sent. as6 21:39 Lipase Sent. as6 21:39 Inserted saline lock: 20 gauge in right hand, using aseptic technique. Blood collected. as6 21:43 CT Abd/Pelvis - Without Contrast In Process Unspecified. EDMS 23:32 No provider procedures requiring assistance completed. IV discontinued, intact, st1 bleeding controlled, No redness/swelling at site. Pressure dressing applied. Administered Medications: 21:38 Drug: morphine 4 mg Route: IVP; Site: right hand; as6 21:38 Drug: Zofran (Ondansetron) 4 mg Route: IVP; Site: right hand; as6 21:39 Drug: NS 0.9% 1000 ml Route: IV; Rate: 1 bolus; Site: right hand; as6 22:59 Drug: morphine 4 mg Route: IVP; Site: right hand; st1 Outcome: 23:28 Discharge ordered by . severiano 23:37 Condition: good st1 23:37 Discharge instructions given to patient, Instructed on discharge instructions, follow up and referral plans. no drinking with medication, medication usage, Demonstrated understanding of instructions, follow-up care, medications, Prescriptions given X 3. 23:38 Discharged to home ambulatory, with family. st1 23:38 Patient left the ED. st1 Signatures: Dispatcher [employer] Emely Zavala Corey, PA PA cp Slawson, Ashby, RN RN as6 Mary Erazo RN RN st1
[2021-09-01 00:56] VITALS: TEMP 98.4
[2021-09-01 00:58] VITALS: BP 116/78; O2SAT 98
== END 2021-08-31 23:38 | disposition home or self-care (01) ==
LOC: ER 20:35
DX: R10.32 Left lower quadrant pain (principal); K08.89 Other specified disorders of teeth and supporting structures; F32.A Depression, unspecified; Z91.013 Allergy to seafood; Z91.040 Latex allergy status; Z91.048 Other nonmedicinal substance allergy status
CPT/HCPCS: 85025; 80048; 36415; 80076; 83690; 74176; 96375; 96374; 99284; J7030; J2405; 81003; 81015

== ENCOUNTER 2021-09-21 00:22 | Emergency (ER) | payer OTHER ==
--- OUTSIDE RECORDS SUMMARY | 2021-09-21 00:27 | XMS REPORT | Continuity of Care Document ---
:1990 Author Organization [facility] t Address [facility] [place] [address] Care Team Providers Name Role Phone Mckenna [...] Date Expiration Date S ourmerritt [place] - [id number] 2019 OUT OF STATE 00:00:00 FORMERLY [facility] [id number] 2017 CHOICE MEDICAID 00:00:00 Problems Condition Condition [...] rs active active ity of problems problems [facility] Allergies, Adverse Reactions, Alerts Allergy Allergy Status [...] 2002-10-17 Smoker Univer sity of use 00:00:00 [facility] Exposure to Not sure [facility] SARS-CoV-2 (event) [facility] Sex Assigned At Universit y of [facility] Tobacco use and 2020-02-06 2020-02-06 Never used Universit y of exposure 00:00:00 00:00:00 [facility] Cigarettes smoked 2020-02-06 2020-02-06 Univers ity of current (pack per 00:00:00 00:00:00 ) - Reported Branch Cigarette 2020-02-06 2020-02-06 University of pack-years 00:00:00 00:00:00 [facility] Alcohol intake 2020-02-06 2020-02-06 Current University of 00:00:00 00:00:00 non-drinker of [facility] alcohol Branch (finding) Smoking Status Start Date Stop Date Source Heavy tobacco smoker [facility] (LUF/ELISABETH/SA) Current every day smoker 2020-02-06 00:00:00 Uni [facility]ity [facility] [place] [facility] [place] Medications Ordered Filled Start Stop Current Ordering Indication Dosage Frequency Signature Comments Components Source Medication Medication Date Date Medication? Clinician (SIG) Name Name ondansetron 2019- No 4mg 4 mg, Slow Univers (ZOFRAN 02-15 IV Push, ity of (PF)) 04:37: 04:37 ONCE, 1 [place] injection 4 00 :00 dose, Sun Med [...] of 350 03:00: 03:00 s, ONCE, 1 [place] BULK-150 00 :00 dose, Sun Medica l mL) 02/15/20 at [place] injection 2200, 120 mL Routine hydrocortis Yes [id number] Insert Univers one 8-10 into ity of (ANUSOL-HC) 00:00: rectum 2 [place] 2.5 % 00 (two) Medical rectal times Branch cream daily. cephALEXin 2020- No [id number] 500mg Take 1 Univers (KEFLEX) 02-05 capsule by ity of 500 mg 00:00: 04:59 mouth 4 [place] capsule 00 :00 (four) Medical times Branch daily for 7 days. benzonatate 2019- 2020- No [id number] 100mg Take 1 Univers (TESSALON 01-1824 capsule by ity of [place]) 100 00:00: 04:59 mouth 3 [place] mg capsule 00 :00 (three) Medica l times Branch daily as needed for Cough for up to 10 days. doxycycline 2019- 2020- No [id number] 100mg Take 1 Univers hyclate 100 01-18-21 [...] 09/19/19 at 1800, [place] docusate 2019-2019- No [id number] 100mg Take 1 U nivers 100 mg 09-18 capsule by ity of capsule 00:00: 04:59 mouth [place] 00 :00 daily for Medical 7 days. Branch dicyclomine 2019-0 2019- No [id number] 20mg Take 1 Univers 20 mg 09-18 tablet by ity of tablet 00:00: 04:59 mouth 4 [place] 00 :00 (four) Medical times Branch daily for 7 days. polyethlene 2019- 2020- No [id number] 17g Take 17 g Univers glycol 09-1818 [...] First dose [place] mg 00 on [facility] 07/27/19 at Branch 2000, Until Discontinu ed, Routine dicyclomine 2020-0 Yes [id number] 10mg Take 1 Univers (BENTYL) 10 1-19 capsule by it y of mg capsule 00:00: mouth [place] 00 every 8 Medical (eight) Branch hours as needed for Abdominal pain. ondansetron 2020-0 Yes [id number] 4mg Take 1 Univers 4 mg 1-19 tablet by ity of disintegrat 00:00: mouth [place] ing tablet 00 every 8 Medica l (eight) Branch hours as needed for Nausea and Vomiting (N/V). methylPREDN 2020-0 Yes [id number] Take by Univers ISolone 1-19 mouth ity of (MEDROL, 00:00: SEE-INSTRU Kristian as JENNY,) 4 mg 00 CTIONS. Medica l tablets follow Branch package directions dicyclomine 2020-0 Yes [id number] 10mg Take 1 Univers (BENTYL) 10 1-19 capsule by it y of mg capsule 00:00: mouth [place] 00 every 8 Medical (eight) Branch hours as needed for Abdominal pain. ondansetron 2020-0 Yes [id number] 4mg Take 1 Univers 4 mg 1-19 tablet by ity of disintegrat 00:00: mouth [place] ing tablet 00 every 8 Medica l (eight) Branch hours as needed for Nausea and Vomiting (N/V). methylPREDN 2020-0 Yes [id number] Take by Univers ISolone 1-19 mouth ity of (MEDROL, 00:00: SEE-INSTRU [place] as JENNY,) 4 mg 00 CTIONS. Medica l tablets follow Branch package directions dicyclomine 2020-0 Yes [id number] 10mg Take 1 Univers (BENTYL) 10 1-19 capsule by it y of mg capsule 00:00: mouth [place] 00 every 8 Medical (eight) Branch hours as needed for Abdominal pain. ondansetron 2020-0 Yes [id number] 4mg Take 1 Univers 4 mg 1-19 tablet by ity of disintegrat 00:00: mouth [place] ing tablet 00 every 8 Medica l (eight) Branch hours as needed for Nausea and Vomiting (N/V). methylPREDN 2020-0 Yes [id number] Take by Univers ISolone 1-19 mouth ity of (MEDROL, 00:00: SEE-INSTRU [place] as JENNY,) 4 mg 00 CTIONS. Medica l tablets follow Branch package directions dicyclomine 2020-0 Yes [id number] 10mg Take 1 Univers (BENTYL) 10 1-19 capsule by it y of mg capsule 00:00: mouth [place] 00 every 8 Medical (eight) Branch hours as needed for Abdominal pain. ondansetron 2020-0 Yes [id number] 4mg Take 1 Univers 4 mg 1-19 tablet by ity of disintegrat 00:00: mouth [place] ing tablet 00 every 8 Medica l (eight) Branch hours as needed for Nausea and Vomiting (N/V). methylPREDN 2020-0 Yes [id number] Take by Univers ISolone 1-19 mouth ity of (MEDROL, 00:00: SEE-INSTRU [place] as JENNY,) 4 mg 00 CTIONS. Medica l tablets follow Branch package directions dicyclomine 2020-0 Yes [id number] 10mg Take 1 Univers (BENTYL) 10 1-19 capsule by it y of mg capsule 00:00: mouth [place] 00 every 8 Medical (eight) Branch hours as needed for Abdominal pain. ondansetron 2020-0 Yes [id number] 4mg Take 1 Univers 4 mg 1-19 tablet by ity of disintegrat 00:00: mouth [place] ing tablet 00 every 8 Medica l (eight) Branch hours as needed for Nausea and Vomiting (N/V). methylPREDN 2020-0 Yes [id number] Take by Univers ISolone 1-19 mouth ity of (MEDROL, 00:00: SEE-INSTRU [place] as JENNY,) 4 mg 00 CTIONS. Medica l tablets follow Branch package directions sucralfate 2020-0 Yes [id number] 1g Take 1 U nivers 1 gram 1-19 tablet by ity of tablet 00:00: mouth [place] 00 before Medical meals and Branch at bedtime. dicyclomine 2020-0 Yes [id number] 10mg Take 1 Univers (BENTYL) 10 1-19 capsule by it y of mg capsule 00:00: mouth [place] 00 every 8 Medical (eight) Branch hours as needed for Abdominal pain. ondansetron 2020-0 Yes [id number] 4mg Take 1 Univers 4 mg 1-19 tablet by ity of disintegrat 00:00: mouth [place] ing tablet 00 every 8 Medica l (eight) Branch hours as needed for Nausea and Vomiting (N/V). methylPREDN 2020-0 Yes [id number] Take by Univers ISolone 1-19 mouth ity of (MEDROL, 00:00: SEE-INSTRU Kristian as JENNY,) 4 mg 00 CTIONS. Medica l tablets follow Branch package directions sucralfate 2020-0 Yes [id number] 1g Take 1 U nivers 1 gram 1-19 tablet by ity of tablet 00:00: mouth [place] 00 before Medical meals and Branch at bedtime. dicyclomine 2020-0 Yes [id number] 10mg Take 1 Univers (BENTYL) 10 1-19 capsule by it y of mg capsule 00:00: mouth [place] 00 every 8 Medical (eight) Branch hours as needed for Abdominal pain. ondansetron 2020-0 Yes [id number] 4mg Take 1 Univers 4 mg 1-19 tablet by ity of disintegrat 00:00: mouth [place] ing tablet 00 every 8 Medica l (eight) Branch hours as needed for Nausea and Vomiting (N/V). methylPREDN 2020-0 Yes [id number] Take by Univers ISolone 1-19 mouth ity of (MEDROL, 00:00: SEE-INSTRU Kristian as JENNY,) 4 mg 00 CTIONS. Medica l tablets follow Branch package directions sucralfate 2020-0 Yes [id number] 1g Take 1 U nivers 1 gram 1-19 tablet by ity of tablet 00:00: mouth [place] 00 before Medical meals and Branch at bedtime. dicyclomine 2020-0 Yes [id number] 10mg Take 1 Univers (BENTYL) 10 1-19 capsule by it y of mg capsule 00:00: mouth [place] 00 every 8 Medical (eight) Branch hours as needed for Abdominal pain. ondansetron 2020-0 Yes [id number] 4mg Take 1 Univers 4 mg 1-19 tablet by ity of disintegrat 00:00: mouth [place] ing tablet 00 every 8 Medica l (eight) Branch hours as needed for Nausea and Vomiting (N/V). methylPREDN 2020-0 Yes [id number] Take by Univers ISolone 1-19 mouth ity of (MEDROL, 00:00: SEE-INSTRU [place] as JENNY,) 4 mg 00 CTIONS. Medica l tablets follow Branch package directions sucralfate 2020-0 Yes [id number] 1g Take 1 U nivers 1 gram 1-19 tablet by ity of tablet 00:00: mouth [place] 00 before Medical meals and Branch at bedtime. dicyclomine 2020-0 Yes [id number] 10mg Take 1 Univers (BENTYL) 10 1-19 capsule by it y of mg capsule 00:00: mouth [place] 00 every 8 Medical (eight) Branch hours as needed for Abdominal pain. ondansetron 2020-0 Yes [id number] 4mg Take 1 Univers 4 mg 1-19 tablet by ity of disintegrat 00:00: mouth [place] ing tablet 00 every 8 Medica l (eight) Branch hours as needed for Nausea and Vomiting (N/V). methylPREDN 2020-0 Yes [id number] Take by Univers ISolone 1-19 mouth ity of (MEDROL, 00:00: SEE-INSTRU [place] as JENNY,) 4 mg 00 CTIONS. Medica l tablets follow Branch package directions sucralfate 2019-0 2020- No [id number] 1g Take 1 Univers 1 gram 1-19 07-13 tablet by ity of tablet 00:00: 00:00 mouth [place] 00 :00 before Medical meals and Branch at bedtime. omeprazole 2019-0 2020- No [id number] 20mg Take 1 Univers 20 mg 1-19 02-19 capsule by ity of capsule 00:00: 05:59 mouth [place] 00 :00 daily for Medical 30 days. Branch metoclopram 2018-07 Yes [id number] 10mg Take 1 Univers nba HCl 10 1-18 tablet by ity of mg tablet 00:00: mouth [place] 00 every 6 Medical (six) Branch hours as needed for Nausea and Vomiting (N/V). metoclopram 2018-07 Yes [id number] 10mg Take 1 Univers nba HCl 10 1-18 tablet by ity of mg tablet 00:00: mouth [place] 00 every 6 Medical (six) Branch hours as needed for Nausea and Vomiting (N/V). metoclopram 2018-07 Yes [id number] 10mg Take 1 Univers nba HCl 10 1-18 tablet by ity of mg tablet 00:00: mouth [place] 00 every 6 Medical (six) Branch hours as needed for Nausea and Vomiting (N/V). metoclopram 2018-07 Yes [id number] 10mg Take 1 Univers nba HCl 10 1-18 tablet by ity of mg tablet 00:00: mouth [place] 00 every 6 Medical (six) Branch hours as needed for Nausea and Vomiting (N/V). metoclopram 2018-07 Yes [id number] 10mg Take 1 Univers nba HCl 10 1-18 tablet by ity of mg tablet 00:00: mouth [place] 00 every 6 Medical (six) Branch hours as needed for Nausea and Vomiting (N/V). metoclopram 2018-07 Yes [id number] 10mg Take 1 Univers nba HCl 10 1-18 tablet by ity of mg tablet 00:00: mouth [place] 00 every 6 Medical (six) Branch hours as needed for Nausea and Vomiting (N/V). metoclopram 2018-07 Yes [id number] 10mg Take 1 Univers nba HCl 10 1-18 tablet by ity of mg tablet 00:00: mouth [place] 00 every 6 Medical (six) Branch hours as needed for Nausea and Vomiting (N/V). metoclopram 2018-07 Yes [id number] 10mg Take 1 Univers nba HCl 10 1-18 tablet by ity of mg tablet 00:00: mouth [place] 00 every 6 Medical (six) Branch hours as needed for Nausea and Vomiting (N/V). metoclopram 2018-07 Yes [id number] 10mg Take 1 Univers nba HCl 10 1-18 tablet by ity of mg tablet 00:00: mouth [place] 00 every 6 Medical (six) Branch hours as needed for Nausea and Vomiting (N/V). dicyclomine 2018-07 2020- No [id number] 20mg Take 1 Univers (BENTYL) 20 1-18 [...] Nystatin Nystatin No 1applic TID [facility] [id number] [facility] - UNT/ML / UNT/ML / Memoria Triamcinolo Triamcinolo l ne ne (LUF/LI Acetonide 1 Acetonide 1 V /SA) MG/ML MG/ML Topical Topical Cream Cream Amoxicillin Amoxicillin No 875mg BID [facility] 875 MG Oral 875 MG Oral L ukes - Tablet Tablet Memoria l (LUF/LI V/SA) Vital Signs Vital Name Observation Time Observation Value Comments Source Systolic blood 2020-02-16 05:15:00 137 mm[Hg] [facility] Diastolic blood 2020-02-16 05:15:00 93 mm[Hg] [facility] Heart rate 2020-02-16 05:15:00 79 /min [facility] Respiratory rate 2020-02-16 05:15:00 18 /min [facility] Oxygen saturation in 2020-02-16 05:15:00 99 /min [facility] Arterial blood by [facility] Pulse oximetry [place] Body temperature 2020-02-16 01:23:00 37.28 Pennie [facility] Body weight 2020-02-16 01:23:00 78.019 kg [facility] BMI 2020-02-16 01:23:00 29.52 kg/m2 [facility] Systolic blood 2020-02-06 22:28:00 129 mm[Hg] [facility] Diastolic blood 2020-02-06 22:28:00 93 mm[Hg] Unive rsity of pressure [place] [facility] Heart rate 2020-02-06 22:28:00 100 /min Universi ty [facility] [place] [facility] Body temperature 2020-02-06 22:28:00 36.72 Pennie Univ ersity of [place] [facility] Respiratory rate 2020-02-06 22:28:00 18 /min Univ ersity of [place] [facility] Body weight 2020-02-06 22:28:00 79.379 kg Universi ty of [place] [facility] BMI 2020-02-06 22:28:00 30.04 kg/m2 Universi ty [facility] [place] [facility] Oxygen saturation in 2020-02-06 22:28:00 98 /min University of Arterial blood by [place] [facility] Pulse oximetry Branch Systolic blood 2020-01-19 18:07:00 125 mm[Hg] Univer sity of pressure [place] [facility] Diastolic blood 2020-01-19 18:07:00 83 mm[Hg] Unive rsity of pressure [place] [facility] Heart rate 2020-01-19 18:07:00 83 /min Universi ty [facility] [place] [facility] Body temperature 2020-01-19 18:07:00 37.11 Pennie Univ ersity of [place] [facility] Respiratory rate 2020-01-19 18:07:00 17 /min Univ ersity of [place] [facility] Body height 2020-01-19 18:07:00 162.6 cm [facility]i ty [facility] [place] [facility] Body weight 2020-01-19 18:07:00 79.379 kg [facility]i [facility] [place] [facility] BMI 2020-01-19 18:07:00 30.04 kg/m2 Universi ty [facility] [place] [facility] Oxygen saturation in 2020-01-19 18:07:00 98 /min University of Arterial blood by [place] [facility] Pulse oximetry Branch Systolic blood 2019-09-20 00:00:00 124 mm[Hg] Univer sity of pressure [place] [facility] Diastolic blood 2019-09-20 00:00:00 75 mm[Hg] Unive rsity of pressure [place] [facility] Heart rate 2019-09-20 00:00:00 74 /min Universi ty [facility] [place] [facility] Respiratory rate 2019-09-20 00:00:00 16 /min Univ ersity of [place] [facility] Oxygen saturation in 2019-09-20 00:00:00 95 /min University of Arterial blood by [place] Medi tami Pulse oximetry Branch Body temperature 2019-09-19 22:27:00 36.56 [facility] 2019-09-19 22:27:00 81.647 kg [facility] BMI 2019-09-19 22:27:00 30.90 kg/m2 [facility] Systolic blood 2019-07-28 03:49:00 123 mm[Hg] Univer sity of pressure [facility] Diastolic blood 2019-07-28 03:49:00 90 mm[Hg] Unive rsity of pressure [facility] Heart rate 2019-07-28 03:49:00 72 /min [facility] Body temperature 2019-07-28 03:49:00 36.56 Pennie [facility] Respiratory rate 2019-07-28 03:49:00 18 /min [facility] Oxygen saturation in 2019-07-28 03:49:00 95 /min [facility] Arterial blood by [facility] Pulse oximetry [place] Body height 2019-07-28 00:55:00 162.6 cm [facility] Body weight 2019-07-28 00:55:00 81.647 kg [facility] BMI 2019-07-28 00:55:00 30.90 kg/m2 [facility] Respiratory Rate 2017-06-12 19:50:00 18 /min [facility] (LUF/ELISABETH/SA) O2% BldC Oximetry 2017-06-12 19:50:00 98 % [facility] (LUF/ELISABETH/SA) BP Systolic 2017-06-12 19:50:00 128 mm[Hg] [facility] (LUF/ELISABETH/SA) BP Diastolic 2017-06-12 19:50:00 68 mm[Hg] [facility] (LUF/ELISABETH/SA) Body Temperature 2017-06-12 17:02:00 98 F [facility] (LUF/ELISABETH/SA) Height 2017-06-12 17:02:00 65 in [facility] (LUF/ELISABETH/SA) Weight Measured 2017-06-12 17:02:00 174.98 lbs LEEANNE S t [facility] (LUF/ELISABETH/SA) BMI (Body Mass 2017-06-12 17:02:[address] [facility] (LUF/ELISABETH/SA) Procedures Procedure Date / Time Performing Clinician Source Performed CT ABDOMEN PELVIS W 2020-02-16 02:52:29 Jamaal Trotter [facility] CONTRAST Medical Branch LIPASE 2020-02-16 02:01:00 Jamaal Trotter [facility] HEPATIC FUNCTION PANEL 2020-02-16 02:01:[address] [facility] ([id number]) (ALB,T.PRO,BILI Medical Branch T,BU/BC,ALT,AST,ALK PHOS) BASIC METABOLIC PANEL 2020-02-16 02:01:00 Jamaal Trotter [facility] (NA, K, CL, CO2, Medical Branch GLUCOSE, BUN, CREATININE, CA) CBC WITH DIFF 2020-02-16 02:01:00 Jamaal Trotter [facility] URINALYSIS 2020-02-16 02:01:00 Jamaal Trotter [facility] CONSENT/REFUSAL FOR 2020-02-06 22:17:29 Doctor Unassigned, [facility] Name Medical Branch XR KUB 2019-09-20 00:34:59 Swati Limon [facility] COMP. METABOLIC PANEL 2019-09-20 00:13:00 Swati Limon Un [facility] ([id number]) [facility] CBC WITH DIFFERENTIAL 2019-09-20 00:13:00 [facility] URINALYSIS 2019-09-20 00:13:00 Swati Limon [facility] NOTICE OF PRIVACY 2019-09-19 22:17:17 Doctor Unassigned, No [facility] PR[facility] Name Medical Branch CONSENT/REFUSAL FOR 2019-09-19 22:17:05 Doctor Unassigned, No Un iversity [facility] DIAGNOSIS AND TREATMENT Name Medical Branch CT ABDOMEN PELVIS W 2019-07-28 02:46:48 Sabi Berman [facility] CONTRAST Medical Branch LIPASE 2019-07-28 01:34:00 Berman, Sabi [facility] Branch COMP. METABOLIC PANEL 2019-07-28 01:34:00 [facility] ([id number]) [facility] CBC WITH DIFFERENTIAL 2019-07-28 01:34:00 Sabi Berman [facility] CONSENT/REFUSAL FOR 2019-07-28 00:45:36 Doctor Unassigned, No Un [facility] DIAGNOSIS AND TREATMENT Name Medical Branch Encounters Start End Encounter Admission Attending Care Care Encounter Source Date/Time Date/Time Type Type Clinicians Facility Department ID 2021-05-06 Emergency [facility] [id number] Univers 11:24:52 ity of [facility] 2021-05-06 Emergency [facility] [id number] Univers 10:10:15 ity of [facility] 2021-06-22 2021-06-22 Outpatient R [facility] [id number] Univers 20:15:00 20:15:00 [id number] ity [facility] [place] [facility] 2021-06-22 2021-06-22 Outpatient R UNKNOWN, [facility] [id number] Univers 20:15:00 20:15:00 ATTENDING ity [facility] [place] [facility] 2020-02-15 2020-02-16 Emergency Jamaal Trotter [facility] 1.2.840.114 [id number] Univers 20:25:00 00:23:00 T Kelsi [id number] i ty of [place] [id number] [place] [id number] [place] [id number] Branch 2020-02-06 2020-02-06 Emergency Christine [facility] [id number] Univers 17:30:03 18:06:00 Jamaal Dolan [id number] i ty [id number] [phone] [facility] 084 Branch 2020-02-06 2020-02-06 Orders Doctor BENAVIDES 1.2.840.114 [id number] Univers 00:00:00 00:00:00 Only Unassigned, CHARLA [id number] ity of [place] [facility] [id number] Kristian [id number] [place] [address] Branch 2020-02-03 2020-02-03 Telephone Pob1, Acute [facility] 1.2.840.114 [id number] Univers 00:00:00 00:00:00 [facility] [id number] ity of [place] [id number] Kristian as Professio [phone] [address] Office Building [facility] 2020-01-19 2020-01-19 Urgent Pob1, Acute Care Clinic [facility] 1. 2.840.114 [id number] Univers 13:01:51 13:40:36 [facility] [id number] ity of [place] [id number] Kristian as Professio [phone] [address] 2020-01-19 2020-01-19 Outpatient R [facility] [id number] Univers 13:00:00 13:00:00 [id number] ity of [facility] 2020-01-19 2020-01-19 Outpatient R [facility] [id number] Univers 13:00:00 13:00:00 ity of [facility] 2020-01-19 2020-01-19 Letter Doctor MAKAYLA 1.2.840.114 [id number] Univers 00:00:00 00:00:00 (Out) Unassigned, CHARLA [id number] [facility] [id number] Kristian as [id number] [address] 2020-01-09 2020-01-09 Outpatient R [facility] [id number] Univers 09:40:00 09:40:00 [id number] ity of [facility] 2020-01-09 2020-01-09 Outpatient R [facility] [id number] Univers 09:40:00 09:40:00 ity of [facility] 2019-09-19 2019-09-19 Emergency X MARSHA [facility] ERT [id number] Univers 18:38:25 20:38:00 SWATI ity [facility] [place] [facility] 2019-09-19 2019-09-19 Emergency Marsha [facility] 1.2.840.114 [id number] Univers 18:38:25 20:38:00 Swati Dolan [id number] ity of [place] [id number] [facility] [id number] [facility] 084 Branch 2019-09-19 2019-09-19 Orders Doctor MAKAYLA 1.2.840.114 [id number] Univers 00:00:00 00:00:00 Only Unassigned, CHARLA [id number] ity of [place] [facility] [id number] [facility] 009 Branch 2019-07-27 2019-07-27 Emergency Berman, [facility] [id number] Univers 18:49:37 21:53:00 Sabi Dolan [id number] i ty of [place] [id number] [facility] [phone] [place] 048104 Branch 2017-06-12 2017-06-12 STRAIN 1 RENNER, [facility] [id number] 16:57:00 19:55:00 [facility] kes - FASCIA , [address] [facility] TENDON [facility] (LUF/LI ST, PATEL V/SA) [place] [address] Results Test Description Test Time Test Results [...] Interpretation Comme nts NA (test code = 5183672063) 138 mmol/L 135-145 K (test code = 5297342597) 3.8 mmol/L 3.5-5 CL (test code = 3694693488) 105 mmol/L 98-108 CO2 TOTAL (test code = 3576871544) 25 mmol/L 23-31 AGAP (test code = 6901948779) 2-16 BUN (test code = 5246385368) 11 mg/dL 7-23 GLUCOSE (test code = 6517910660) 111 mg/dL 70-110 H CREATININE (test code = 0.95 mg/dL 0.6-1.25 8317062030) CALCIUM (test code = 8642214500) 9.4 mg/dL 8.6-10.6 eGFR Calculation (Non- mL/min/1.73m2 Iraqi) (test code = 4433190719) eGFR Calculation ( mL/min/1.73m2 Iraqi) (test code = 7031808874) [place] (test code = [place]) Association of [...] tests). Lab Interpretation (test code = Abnormal 20347-9) [facility] (ALB, T.PRO, BILI T, BU/BC, ALT, AST, ALK PHOS)2020-02-16 02:37:00 Test Item Value Reference Range Interpretation Comments TOTAL BILI (test code = 1482176367) 0.2 mg/dL 0.1-1.1 BILI UNCON (test code = 3283103338) 0.3 mg/dL 0.1-1.1 BILI CONJ (test code = 8989436417) 0.0 mg/dL 0-0.3 T PROTEIN (test code = 4502721476) 7.4 g/dL 6.3-8.2 ALBUMIN (test code = 9242769613) 4.5 g/dL 3.5-5 ALK PHOS (test code = 3099856405) 70 U/L 34-122 ALTv (test code = 1742-6) 19 U/L 5-50 AST(SGOT) (test code = 9035150163) 22 U/L 13-40 Lab Interpretation (test code = Normal 87946-3) [facility] [id number] 02:37:00 Test Item Value Reference Range Interpretation Comments LIPASE (test code = 7582052994) 71 U/L 0-220 Lab Interpretation (test code = Normal 94809-3) [facility] 02:31:00 Test Item Value Reference Range Interpretation Comments APPEARANCE (test code = Clear Clear 4205350314) COLOR (test code = Yellow Yellow 8489620932) PH (test code = 4.8-8.0 7670712062) SP GRAVITY (test code = 1.003-1.030 6930194789) GLU U QUAL (test code = Normal Normal 4318336474) BLOOD (test code = Negative Negative 1696523340) KETONES (test code = 5 mg/dL Negative A 8874906695) PROTEIN (test code = Negative Negative 2887-8) UROBILIN (test code = 2.0 mg/dL Normal A 5305014020) BILIRUBIN (test code = Negative Negative 6542999040) NITRITE (test code = Negative Negative 2194692382) LEUK EMMANUEL (test code = Negative Negative 8589973263) RBC/HPF (test code = <1 See_Comment [Autom ated message] 3983162107) The system [employer] generated this result transmit clay reference range : 0 - 3 HPF. The refe rence range was not u sed to interpret th is result as normal/abnormal . WBC/HPF (test code = <1 See_Comment [Autom ated message] 1020796684) The system [employer] generated this result transmit clay reference range : 0 - 5 HPF. The refe rence range was not u sed to interpret th is result as normal/abnormal . BACTERIA (test code = Negative Negative 9949797452) MUCOUS (test code = Slight Negative LPF A 7289880257) SQ EPITH (test code = <1 HPF 6324831358) Lab Interpretation (test Abnormal code = 13583-2) [facility] with [id number] 02:23:00 Test Item Value Reference Range Interpretation [...] (test code = 35.2 fL 38.5-51.6 L 86629-1) RDW-CV (test code = 11.3 % 12.1-15.4 L 788-0) PLT (test code = See_Comment [Automated 777-3) message] The sy stem which generated this result transmitted reference range : 150 - 328 10*3/ ?L. The reference r abhijit was not used to interpret this result as normal/abnormal . MPV (test code = 10.0 fL 9.8-13 62306-3) NRBC/100 WBC (test See_Comment [Automat ed code = 9412696539) message] The system which generated this result transmitted reference range : 0.0 - 10.0 /100 WBCs. The refer ence range was not u sed to interpret th is result as normal/abnormal . NRBC x10^3 (test code <0.01 See_Comment [Auto mated = 3823316608) message] The s ystem which generated this result transmitted reference range : 10*3/?L. The reference range was not used to interpret this result as normal/abnormal . GRAN MAT (NEUT) % 60.4 % (test code = 770-8) IMM GRAN % (test code 0.10 % = 7727914196) LYMPH % (test code = 32.6 % 736-9) MONO % (test code = 6.3 % 5905-5) EOS % (test code = 0.5 % 713-8) BASO % (test code = 0.1 % 706-2) GRAN MAT x10^3(ANC) 5.29 10*3/uL 1.99-6.95 (test code = 9129056013) IMM GRAN x10^3 (test <0.03 0-0.06 code = 5724262842) LYMPH x10^3 (test code 2.85 10*3/uL 1.09-3.23 = 731-0) MONO x10^3 (test code 0.55 10*3/uL 0.36-1.02 = 742-7) EOS x10^3 (test code = 0.04 10*3/uL 0.06-0.53 L 711-2) BASO x10^3 (test code <0.03 0.01-0.09 = 704-7) Lab Interpretation Abnormal (test code = 98484-9) [facility] Test Item Value Reference Range Interpretation Comments APPEARANCE (test code = Clear Clear 1341035973) COLOR (test code = Straw Yellow A 4088848287) PH (test code = 4.8-8.0 9501033517) SP GRAVITY (test code = 1.003-1.030 0212369797) GLU U QUAL (test code = Normal Normal 0842564678) BLOOD (test code = Negative Negative 5723610600) KETONES (test code = Negative Negative 2525014067) PROTEIN (test code = Negative Negative 2887-8) UROBILIN (test code = Normal Normal 9499115186) BILIRUBIN (test code = Negative Negative 4334735884) NITRITE (test code = Negative Negative 2067750276) LEUK EMMANUEL (test code = Negative Negative 2260927251) RBC/HPF (test code = See_Comment [Autom ated message] 8127983677) The system [employer] generated this result transmitted ref erence range: 0 - 3 HP F. The reference range was not used to int erpret this result as normal/abnormal . WBC/HPF (test code = <1 See_Comment [Autom ated message] 6843454636) The system [employer] generated this result transmitted ref erence range: 0 - 5 HP F. The reference range was not used to int erpret this result as normal/abnormal . BACTERIA (test code = Negative Negative 7289832149) MUCOUS (test code = Slight Negative LPF A 6643276172) Lab Interpretation (test Abnormal code = 47172-8) [facility] ([id number][facility]2019-09-20 00:48:00 Test Item Value Reference Range Interpretation Comments NA (test code = 141 mmol/L 135-145 6272996157) K (test code = 3.9 mmol/L 3.5-5 8813023110) CL (test code = 106 mmol/L 98-108 8984237762) CO2 TOTAL (test code = 25 mmol/L 23-31 3084120259) AGAP (test code = 2-16 1839080773) BUN (test code = 14 mg/dL 7-23 6559530870) GLUCOSE (test code = 101 mg/dL 70-110 2115591780) CREATININE (test code 1.03 mg/dL 0.6-1.25 = 1821223201) TOTAL BILI (test code 0.3 mg/dL 0.1-1.1 = 1261924683) CALCIUM (test code = 9.9 mg/dL 8.6-10.6 4265889991) T PROTEIN (test code = 6.8 g/dL 6.3-8.2 7703553270) ALBUMIN (test code = 4.7 g/dL 3.5-5 5491154414) ALK PHOS (test code = 63 U/L 34-122 8511953842) ALTv (test code = 20 U/L 5-50 1742-6) AST(SGOT) (test code = 20 U/L 13-40 6350214647) eGFR Calculation mL/min/1.73m2 (Non-) (test code = 3431285175) eGFR Calculation mL/min/1.73m2 () (test code = 4987678971) EVERTON (test code = EVERTON) Association of [...] or urine or abnormalities in imaging tests). [facility] WITH [id number] 00:31:00 Test Item Value Reference Range Interpretation Comments WBC (test code = See_Comment [Automated 1047-2) message] The sy stem which generated this result transmitted reference range : 4.20 - 10.70 10*3/?L. The reference range was not used to interpret this result as normal/abnormal . RBC (test code = See_Comment [Automated 809-8) message] The sy stem which generated this [...] (test code = 38.2 fL 38.5-51.6 L 96678-1) RDW-CV (test code = 12.0 % 12.1-15.4 L 788-0) PLT (test code = See_Comment [Automated 777-3) message] The sy stem which generated this result transmitted reference range : 150 - 328 10*3/ ?L. The reference r abhijit was not used to interpret this result as normal/abnormal . MPV (test code = 10.0 fL 9.8-13 31128-5) NRBC/100 WBC (test See_Comment [Automat ed code = 9099713497) message] The system which generated this result transmitted reference range : 0.0 - 10.0 /100 WBCs. The refer ence range was not u sed to interpret th is result as normal/abnormal . NRBC x10^3 (test code <0.01 See_Comment [Auto mated = 8101766690) message] The s ystem which generated this result transmitted reference range : 10*3/?L. The reference range was not used to interpret this result as normal/abnormal . GRAN MAT (NEUT) % 60.6 % (test code = 770-8) IMM GRAN % (test code 0.40 % = 9972722552) LYMPH % (test code = 31.9 % 736-9) MONO % (test code = 6.1 % 5905-5) EOS % (test code = 0.8 % 713-8) BASO % (test code = 0.2 % 706-2) GRAN MAT x10^3(ANC) 5.02 10*3/uL 1.99-6.95 (test code = 4448535942) IMM GRAN x10^3 (test 0.03 10*3/uL 0-0.06 code = 8623374738) LYMPH x10^3 (test code 2.65 10*3/uL 1.09-3.23 = 731-0) MONO x10^3 (test code 0.51 10*3/uL 0.36-1.02 = 742-7) EOS x10^3 (test code = 0.07 10*3/uL 0.06-0.53 711-2) BASO x10^3 (test code <0.03 0.01-0.09 = 704-7) Lab Interpretation Abnormal (test code = 85589-9) [facility] [id number] 02:58:35Impression: 1. Fluid-filled, nondilated distal small bowel loops with mucosal foldthickening, suggestive of enteritis.2. Normal appendix. No free air or free fluid. RL: [id number]: [id number] End of Report Exam: CT Abdomen and [...] No free air or free fluid.RL: 2824AFC: 70632Jub of Report [facility] METABOLIC PANEL ([id number])2019-07-28 02:28:00 Test Item Value Reference Range Interpretation Comments NA (test code = 140 mmol/L 135-145 3487950690) K (test code = 3.8 mmol/L 3.5-5 5139787180) CL (test code = 107 mmol/L 98-108 2284270312) CO2 TOTAL (test code = 24 mmol/L 23-31 3824210978) AGAP (test code = 2-16 9416259296) BUN (test code = 14 mg/dL 7-23 4370923584) GLUCOSE (test code = 119 mg/dL 70-110 H 8393155320) CREATININE (test code = 1.03 mg/dL 0.6-1.25 8818906256) TOTAL BILI (test code = 0.2 mg/dL 0.1-1.0 0463198153) CALCIUM (test code = 9.6 mg/dL 8.6-10.6 3959111988) T PROTEIN (test code = 7.8 g/dL 6.3-8.2 7215461471) ALBUMIN (test code = 4.9 g/dL 3.5-5 5622375729) ALK PHOS (test code = 69 U/L 34-122 6148343987) ALTv (test code = 47 U/L 5-50 1742-6) AST(SGOT) (test code = 30 U/L 13-40 6192130953) eGFR Calculation mL/min/1.73m2 (Non-) (test code = 5114291833) eGFR Calculation mL/min/1.73m2 () (test code = 4764988389) EVERTON (test code = EVERTON) Association of [...] tests). Lab Interpretation Abnormal (test code = 21145-5) [facility] Test Item Value Reference Range Interpretation Comments LIPASE (test code = 0330825664) 103 U/L 0-220 Lab Interpretation (test code = Normal 13773-9) [facility] [id number] 02:09:00 Test Item Value Reference Range Interpretation [...] (test code = 35.8 fL 38.5-51.6 L 97485-6) RDW-CV (test code = 11.8 % 12.1-15.4 L 788-0) PLT (test code = See_Comment [Automated 777-3) message] The sy stem which generated this result transmitted reference range : 150 - 328 10*3/ ?L. The reference r abhijit was not used to interpret this result as normal/abnormal . MPV (test code = 10.2 fL 9.8-13 34880-5) NRBC/100 WBC (test See_Comment [Automat ed code = 8374472234) message] The system which generated this result transmitted reference range : 0.0 - 10.0 /100 WBCs. The refer ence range was not u sed to interpret th is result as normal/abnormal . NRBC x10^3 (test code <0.01 See_Comment [Auto mated = 4922691742) message] The s ystem which generated this result transmitted reference range : 10*3/?L. The reference range was not used to interpret this result as normal/abnormal . GRAN MAT (NEUT) % 59.2 % (test code = 770-8) IMM GRAN % (test code 0.20 % = 2325716190) LYMPH % (test code = 31.1 % 736-9) MONO % (test code = 8.5 % 5905-5) EOS % (test code = 0.8 % 713-8) BASO % (test code = 0.2 % 706-2) GRAN MAT x10^3(ANC) 5.01 10*3/uL 1.99-6.95 (test code = 5732972810) IMM GRAN x10^3 (test <0.03 0-0.06 code = 5574741387) LYMPH x10^3 (test code 2.63 10*3/uL 1.09-3.23 = 731-0) MONO x10^3 (test code 0.72 10*3/uL 0.36-1.02 = 742-7) EOS x10^3 (test code = 0.07 10*3/uL 0.06-0.53 711-2) BASO x10^3 (test code <0.03 0.01-0.09 = 704-7) Lab Interpretation Abnormal (test code = 29795-6) [facility]/O [id number] 19:08:00NPO 4 hours. Do not withhold medsProcedure: [...] MD 06/12/20177:01 PMDictated By: ENZO CABRERADate: 06/12/2017 19:[id number] 18:51:00 Test Item Value Reference Range Interpretation [...] 4 - SerumAlbu min)] EGFR if >60 Iraqi (test code mL/min/1.73m\\ = EGFRAA) S\\2 EGFR if Non- >60 Estimate d Glomerular Iraqi (test code mL/min/1.73m\\ Filtrat ion Rate (eGFR) [...] 11 code = GAP) CBC WITH AUTO [id number] 18:02:00 Test Item Value Reference Range Interpretation [...] = 0 /100WBC 0-2 NRBC_AUTO) URINALYSIS WITHOUT [id number] 17:32:00 Test Item Value Reference Range Interpretation Comments Color (test code = UCOLR) Yellow Lt. Yellow A Clarity (test code = UCLAR) Clear Glucose (test code = UGLUC) Negative Negative N Bilirubin (test code = UBILI) Negative Negative N Ketones (test code = UKET) Negative Negative N Specific Watkins (test code = 1.015 1.005-1.030 A USPGR) [...]
[2021-09-21] MEDS ORDERED: ONDANSETRON 4 MG/2 ML VIAL ONE (01:10)
[2021-09-21] MEDS ORDERED: NA CHLORIDE 0.9% 1,000 ML ONE ×2 (01:10→02:50)
[2021-09-21] MEDS ORDERED: MORPHINE 4 MG/ML SYR ONE (01:10)
[2021-09-21] MEDS ORDERED: FAMOTIDINE 20 MG/2 ML VIAL IV ONE (01:10)
[2021-09-21 01:13] LABS: Absolute Lymphocytes (CBC) 3.3 K/uL (0.7-4.9); Hematocrit 45.5 % (39.6-49.0); RBC Red Blood Cell Count 5.11 M/uL (4.33-5.43)
[2021-09-21 01:27] LABS: Albumin 4.2 g/dL (3.4-5.0); Bilirubin Total 0.3 mg/dL (0.2-1.0); Potassium 3.6 mmol/L (3.5-5.1); Protein, Total 7.3 g/dL (6.4-8.2)
[2021-09-21 01:44] LABS: Urine Blood Negative (Negative); Urine Glucose Negative (Negative); Urine Protein 1+ (Negative); Urine Specific Gravity 1.025 (1.005-1.030)
[2021-09-21 02:24] LABS: Urine Bacteria 20-50 /HPF (NONE SEEN); Urine RBC <5 /HPF (NONE SEEN)
[2021-09-21 02:25] LABS: Urine Mucus SLIGHT /HPF (NONE SEEN); Urine Urothelial Cells <5 /HPF (NONE SEEN)
[2021-09-21] MEDS ORDERED: KETOROLAC 30 MG/ML INJ ONE (02:50)
--- NOTE | 2021-09-21 03:58 | EDPHYS ---
Physician Documentation [facility] Name: Sunny Angel Age: 30 yrs Sex: Male : 1990 Arrival Date: 09/21/2021 Time: 00:24 Bed 2 Private MD: ED Physician Alek Mejia HPI: 09/21 01:00 This 30 yrs old Male presents to ER via Ambulatory with complaints of Abdominal Pain. cp 01:00 The patient presents with abdominal pain in the left upper quadrant, in the left lower cp quadrant. 01:00 Onset: The symptoms/episode began/occurred suddenly, last night. cp 01:00 The symptoms do not radiate. Associated signs and symptoms: Pertinent negatives: blood cp in stools, constipation, diarrhea, dysuria, fever, testicular pain, vomiting. The symptoms are described as sharp. Historical: - Allergies: 00:31 Latex, Natural Rubber; tw5 00:31 SEAFOOD; tw5 - Home Meds: 00:31 sertraline 100 mg Oral tab 1 tab once daily [Active]; tw - PMHx: 00:31 depressive disorder; - PSHx: 00:31 hernia; oral SX; tw5 - Immunization history:: Adult Immunizations up to date, Client reports having NOT received the Covid vaccine. - Social history:: Smoking status: Patient reports the use of cigarette tobacco products, smokes one-half pack cigarettes per day, Patient/guardian denies using alcohol, street drugs, IV drugs. ROS: 01:05 Constitutional: Negative for body aches, chills, fever, poor PO intake. cp 01:05 Eyes: Negative for injury, pain, redness, and discharge. cp 01:05 ENT: Negative for drainage from ear(s), ear pain, sore throat, difficulty swallowing, difficulty handling secretions. 01:05 Cardiovascular: Negative for chest pain, palpitations. 01:05 Respiratory: Negative for cough, shortness of breath, wheezing. 01:05 Abdomen/GI: Positive for abdominal pain, Negative for vomiting, diarrhea, constipation, black/tarry stool, rectal bleeding. 01:05 Neuro: Negative for altered mental status, dizziness, headache, weakness. 01:05 All other systems are negative. Exam: 01:10 Constitutional: The patient appears in no acute distress, alert, awake, non-toxic, well cp developed, well nourished, uncomfortable. 01:10 Head/Face: Normocephalic, atraumatic. cp 01:10 Eyes: Periorbital structures: appear normal, Conjunctiva: normal, no exudate, no injection, Sclera: no appreciated abnormality, Lids and lashes: appear normal, bilaterally. 01:10 ENT: External ear(s): are unremarkable, Nose: is normal, Mouth: Lips: moist, Oral mucosa: moist, Posterior pharynx: Airway: no evidence of obstruction, patent. 01:10 Chest/axilla: Inspection: normal. 01:10 Cardiovascular: Rate: normal, Rhythm: regular. 01:10 Respiratory: the patient does not display signs of respiratory distress, Respirations: normal, no use of accessory muscles, no retractions, labored breathing, is not present, Breath sounds: are clear throughout, no decreased breath sounds, no stridor, no wheezing. 01:10 Abdomen/GI: Inspection: abdomen appears normal, Bowel sounds: active, all quadrants. 01:10 Back: pain, is absent, ROM is normal. cp 01:10 Neuro: Orientation: to person, place \T\ time. Mentation: is normal. cp Vital Signs: 00:28 BP 129 / 83; Pulse 84; Resp 18 S; Temp 98.4(O); Pulse Ox 99% on R/A; Weight 81.65 kg tw5 (R); Height 5 ft. 4 in. (162.56 cm) (R); Pain 8/10; 01:49 BP 113 / 71; Pulse 67; Resp 16; Pulse Ox 96% on R/A; ke1 04:02 BP 116 / 70; Pulse 65; Resp 16; Pulse Ox 100% on R/A; st1 00:28 Body Mass Index 30.90 (81.65 kg, 162.56 cm) tw5 MDM: 00:52 Patient medically screened. cp 01:30 Differential diagnosis: diverticulitis, Pyelonephritis, Ureterolithiasis, urinary tract cp infection, colitis. 03:57 Data reviewed: vital signs, nurses notes, lab test result(s), radiologic studies, CT cp scan, and as a result, I will discharge patient. 03:57 Counseling: I had a detailed discussion with the patient and/or guardian regarding: the cp historical points, exam findings, and any diagnostic results supporting the discharge/admit diagnosis, lab results, radiology results, the need for outpatient follow up, a abstract maker, to return to the emergency department if symptoms worsen or persist or if there are any questions or concerns that arise at home. Special discussion: Based on the patient's Hx, exam, and Dx evaluation, there is no indication for emergent surgery or inpatient Tx. It is understood by the patient/guardian that if the Sx's persist or worsen they need to return immediately for re-evaluation. 09/21 00:57 Order name: CBC with Diff 09/21 00:57 Order name: CMP cp 09/21 00:57 Order name: Lipase cp 09/21 00:57 Order name: Urine Microscopic Only 09/21 00:57 Order name: CBC with Automated Diff; Complete Time: 02:26 EDMS 09/21 03:21 Interpretation: Reviewed. 09/21 00:57 Order name: Comprehensive Metabolic Panel; Complete Time: 02:26 EDNV 09/21 03:21 Interpretation: Normal except: CL 108; GFR 78; AST 14. 09/21 00:57 Order name: Lipase; Complete Time: 02:26 EDMS 09/21 00:57 Order name: Urine Microscopic Only; Complete Time: 02:26 EDMS 09/21 02:26 Interpretation: Normal except: UBACT 20-50. 09/21 00:58 Order name: CT Abd/Pelvis - PO and IV Contrast cp 09/21 01:44 Order name: Urine Dipstick-Ancillary EDNV 09/21 02:26 Order name: Urine Culture EDNV 09/21 00:57 Order name: IV Saline Lock; Complete Time: 01:01 cp 09/21 00:57 Order name: Labs collected and sent; Complete Time: 01:07 cp 09/21 00:57 Order name: Urine Dipstick-Ancillary (obtain specimen); Complete Time: 01:46 cp Administered Medications: 01:20 Drug: morphine 4 mg Route: IVP; Site: right antecubital; ke1 01:50 Follow up: Response: Pain is decreased ke1 01:21 Drug: Pepcid (famotidine) 20 mg Route: IVP; Site: right antecubital; ke1 01:21 Drug: Zofran (Ondansetron) 4 mg Route: IVP; Site: right antecubital; ke1 01:21 Drug: NS 0.9% 1000 ml Route: IV; Rate: 1 bolus; Site: right antecubital; ke1 02:59 Drug: NS 0.9% 1000 ml Route: IV; Rate: 250 ml/hr; Site: right antecubital; ke1 03:00 Drug: TORadol (ketorolac) 30 mg Route: IVP; Site: right antecubital; ke1 04:13 Drug: Cipro (ciprofloxacin) 500 mg Route: PO; st1 Disposition: 06:48 Co-signature as Attending Physician, Alek Mejia MD. [email or web address] Disposition Summary: 09/21/21 03:57 Discharge Ordered Location: Home cp Problem: new cp Symptoms: have improved cp Condition: Stable cp Diagnosis - Abdominal pain, unspecified cp Followup: cp - With: Narciso Gonzales MD - When: 2 - 3 days - Reason: Recheck today's complaints Discharge Instructions: - Discharge Summary Sheet cp - Abdominal Pain, Adult cp Forms: - Medication Reconciliation Form cp - Thank You Letter cp - Antibiotic Education cp - Prescription Opioid Use cp Prescriptions: - Cipro 500 mg Oral Tablet - take 1 tablet by ORAL route every 12 hours for 7 days; 14 tablet; Refills: 0, cp Product Selection Permitted - Diclofenac Sodium 75 mg Oral tablet,delayed release (DR/EC) - take 1 tablet by ORAL route 2 times per day; 20 tablet; Refills: 0, Product cp Selection Permitted Signatures: Dispatcher [employer] EDNV Tyrone Rader PA PA cp Alek Mejia MD MD 7 Oanh Knight [facility] Mary Erazo RN RN st1 Yuki Gan RN RN ke1 Corrections: (The following items were deleted from the chart) 09/22 00:19 09/21 01:00 Differential diagnosis: diverticulitis, Pyelonephritis, Ureterolithiasis, cp urinary tract infection, colitis cp
--- NOTE | 2021-09-21 03:58 | ER ---
Nurse's Notes [facility] Name: Sunny Angel Age: 30 yrs Sex: Male : 1990 Arrival Date: 09/21/2021 Time: 00:24 Bed 2 Private MD: Diagnosis: Abdominal pain, unspecified Presentation: 09/21 00:28 Chief complaint: Patient states: diagnosed 4-5 days ago with colitis. currently on tw5 antibiotics. sudden onset of pain in left lower quadrant around midnight tonight. Coronavirus screen: Client denies travel out of the [place] in the last 14 days. At this time, the client does not indicate any symptoms associated with coronavirus-19. Ebola Screen: No symptoms or risks identified at this time. Initial Sepsis Screen: Does the patient meet any 2 criteria? No. Patient's initial sepsis screen is negative. Does the patient have a suspected source of infection? No. Patient's initial sepsis screen is negative. Risk Assessment: Do you want to hurt yourself or someone else? Patient reports no desire to harm self or others. Onset of symptoms was September 21, 2021. 00:28 Method Of Arrival: Ambulatory tw5 00:28 Acuity: GILBERT 3 tw5 Triage Assessment: 00:31 General: Appears in no apparent distress. uncomfortable, Behavior is calm, cooperative. tw5 Pain: Complains of pain in left lower quadrant Pain currently is 8 out of 10 on a pain scale. EENT: No deficits noted. No signs and/or symptoms were reported regarding the EENT system. Neuro: No deficits noted. Level of Consciousness is awake, alert, obeys commands, Oriented to person, place, time, situation. Cardiovascular: No deficits noted. Denies chest pain, shortness of breath. Respiratory: No deficits noted. Airway is patent Trachea midline Respiratory effort is even, unlabored, Respiratory pattern is regular, symmetrical. GI: No deficits noted. Abdomen is round non-distended, Reports lower abdominal pain. : No deficits noted. No signs and/or symptoms were reported regarding the genitourinary system. Derm: No deficits noted. No signs and/or symptoms reported regarding the dermatologic system. Skin is intact, is healthy with good turgor, Skin is dry. Musculoskeletal: No deficits noted. No signs and/or symptoms reported regarding the musculoskeletal system. Circulation, motion, and sensation intact. Range of motion: intact in all extremities. Historical: - Allergies: 00: Latex, Natural Rubber; tw5 00:31 SEAFOOD; tw - Home Meds: 00:31 sertraline 100 mg Oral tab 1 tab once daily [Active]; tw - PMHx: 00:31 depressive disorder; tw - PSHx: 00:31 hernia; oral SX; tw5 - Immunization history:: Adult Immunizations up to date, Client reports having NOT received the Covid vaccine. - Social history:: Smoking status: Patient reports the use of cigarette tobacco products, smokes one-half pack cigarettes per day, Patient/guardian denies using alcohol, street drugs, IV drugs. Screenin:35 Abuse screen: Denies threats or abuse. Denies injuries from another. Nutritional tw5 screening: No deficits noted. Tuberculosis screening: No symptoms or risk factors identified. Fall Risk None identified. Assessment: 00:45 General: Appears in no apparent distress. Behavior is calm. Pain: Complains of pain in ke1 abdomen and left lower quadrant Pain does not radiate. Pain currently is 6 out of 10 on a pain scale. Quality of pain is described as stabbing. Neuro: Level of Consciousness is awake, alert, Oriented to person, place, time, situation. Cardiovascular: Heart tones S1 S2 Capillary refill < 3 seconds Patient's skin is warm and dry. Respiratory: Airway is patent Trachea midline Respiratory effort is even, unlabored, Respiratory pattern is regular, symmetrical. GI: Bowel sounds present X 4 quads. Abd is soft X 4 quads Abdomen is tender to palpation in left lower quadrant. : No deficits noted. EENT: No deficits noted. Derm: No deficits noted. Musculoskeletal: No deficits noted. 01:52 Reassessment: Patient states feeling better. Patient states symptoms have improved. ke1 Vital Signs: 00:28 BP 129 / 83; Pulse 84; Resp 18 S; Temp 98.4(O); Pulse Ox 99% on R/A; Weight 81.65 kg tw5 (R); Height 5 ft. 4 in. (162.56 cm) (R); Pain 8/10; 01:49 BP 113 / 71; Pulse 67; Resp 16; Pulse Ox 96% on R/A; ke1 04:02 BP 116 / 70; Pulse 65; Resp 16; Pulse Ox 100% on R/A; st1 00:28 Body Mass Index 30.90 (81.65 kg, 162.56 cm) tw5 ED Course: 00:24 Patient arrived in ED. kc5 00:31 Triage completed. tw5 00:31 Arm band placed on left wrist. tw5 00:41 Tyrone Rader PA is PHCP. cp 00:41 Alek Mejia MD is Attending Physician. cp 00:45 Yuki Gan RN is Primary Nurse. ke1 00:59 Inserted saline lock: 20 gauge in right antecubital area, using aseptic technique. ke1 01:51 Bed in low position. Call light in reach. ke1 02:58 CT Abd/Pelvis - PO and IV Contrast Sent. st1 03:14 CT Abd/Pelvis - PO and IV Contrast In Process Unspecified. EDMS 03:57 Narciso Gonzales MD is Referral Physician. cp 04:13 No provider procedures requiring assistance completed. IV discontinued, intact, st1 bleeding controlled, No redness/swelling at site. Pressure dressing applied. Administered Medications: 01:20 Drug: morphine 4 mg Route: IVP; Site: right antecubital; ke1 01:50 Follow up: Response: Pain is decreased ke1 01:21 Drug: Pepcid (famotidine) 20 mg Route: IVP; Site: right antecubital; ke1 01:21 Drug: Zofran (Ondansetron) 4 mg Route: IVP; Site: right antecubital; ke1 01:21 Drug: NS 0.9% 1000 ml Route: IV; Rate: 1 bolus; Site: right antecubital; ke1 02:59 Drug: NS 0.9% 1000 ml Route: IV; Rate: 250 ml/hr; Site: right antecubital; ke1 03:00 Drug: TORadol (ketorolac) 30 mg Route: IVP; Site: right antecubital; ke1 04:13 Drug: Cipro (ciprofloxacin) 500 mg Route: PO; st1 Outcome: 03:57 Discharge ordered by . cp 04:13 Discharged to home ambulatory. st1 04:13 Condition: stable 04:13 Discharge instructions given to patient, Instructed on discharge instructions, follow up and referral plans. no drinking with medication, medication usage, Demonstrated understanding of instructions, follow-up care, medications, Prescriptions given X 2. 04:20 Patient left the ED. st1 Signatures: Dispatcher [employer] EDMS Tyrone Rader PA PA cp Wood, Tiffany tw5 Jaimee Braun kc5 Mary Erazo RN RN st1 Yuki Gan RN RN ke1
[2021-09-21] MEDS ORDERED: CIPROFLOXACIN HCL 500 MG TAB ONE (04:09)
[2021-09-21 04:27] VITALS: TEMP 98.4
[2021-09-21 04:29] VITALS: BP 116/70; O2SAT 100
--- NOTE | 2021-09-21 13:52 | RAD REPORT ---
EXAM DESCRIPTION: Abdomen Pelvis W Contrast 09/21/2021 3:39 AM CDT CLINICAL HISTORY: 30 years, Male, ABD PAIN COMPARISON: 08/31/2021 TECHNIQUE: Contrast-enhanced images of the abdomen and pelvis were performed utilizing 5 mm slice th ickness at 5 mm interval reconstruction from the lung bases to the ischial tuberosities after the adm inistration of IV contrast. In addition multiplanar reformats in the coronal and sagittal plane were obtained and reviewed. This exam was performed according to our departmental dose-optimization protocol, which includes auto mated exposure control, adjustment of the mA and/or kV according to patient size and/or use of iterat yunior reconstruction technique. FINDINGS: The lung bases demonstrate to be clear. The liver again there is a small calcification within the dome of the liver and posterior right hepat ic lobe perhaps corresponding to a granuloma. Otherwise the liver, gallbladder, pancreas, spleen and adrenal glands demonstrate to be unremarkable, no focal lesions are noted. There are a small consulta tion is within the spleen corresponding to granulomas. The kidneys demonstrate normal uptake of contrast media. No evidence for nephrolithiasis and/or hydro nephrosis. Within the unopacified stomach, small bowel and large bowel demonstrate to be within normal limits. There is no evidence for bowel dilatation/or free air. The appendix is normal. The left site colon is unremarkable. The urinary bladder demonstrate to be unremarkable. The prostate gland is normal. The aorta demon strate to be normal. There is no retroperitoneal lymphadenopathy. There is no evidence for ascites or and/or significant abnormal fluid collections. The rest of the soft tissue and bony structures are within normal limits. IMPRESSION: No acute intra-abdominal process. Normal appendix. Old granulomatous disease. Electronically signed by: Kian Pena MD 09/21/2021 3:43 AM CDT Due to temporary technical issues with the PACS/Fluency reporting system, reports are being signed by the in house radiologist without review as a courtesy to ensure prompt reporting. The interpreting r adiologist is fully responsible for the content of the report.
== END 2021-09-21 04:20 | disposition home or self-care (01) ==
LOC: ER 00:22
DX: R10.32 Left lower quadrant pain (principal); F17.210 Nicotine dependence, cigarettes, uncomplicated; K46.9 Unspecified abdominal hernia without obstruction or gangrene; Z91.040 Latex allergy status; Z91.013 Allergy to seafood
CPT/HCPCS: 85025; 87086; 36415; 83690; 80053; 74177; 96375; 96374; 99284; Q9967; J7030 ×2; J2405; 81003; 81015; 87088

== ENCOUNTER 2021-11-20 00:43 | Emergency (ER) | payer OTHER ==
--- OUTSIDE RECORDS SUMMARY | 2021-11-20 00:48 | XMS REPORT | Continuity of Care Document ---
:1990 Author Organization [facility] t Address [address] [place] [place] [id number] Care Team Providers Name Role Phone Rebecca Keys Jr. Primary Care Physician Galen Langston MD Attending Clinician Dominick Zelaya APRNNP Attending Clinician Unavailable LILY, R Attending Clinician Unavailable Lily VP ACCOUNT DIRECTOR, R Attending Clinician UNKNOWN Attending Clinician Unavailable Rose Marie DAVISP, T Attending Clinician Emmett DAVISP Attending Clinician Doctor Unassigned, Name Attending Clinician Unavailable Po, Care Clinic Attending Clinician Unavailable Tena VP ACCOUNT DIRECTOR Attending Clinician IBGRANTUNLE, F Attending Clinician Unavailable Ibikben VP ACCOUNT DIRECTOR, F Attending Clinician Singer RAJPUT Attending Clinician ZURDO Attending Clinician Unavailable Physician, Primary or Family Admitting Clinician Unavailabl rebecca WALLACEE, R Admitting Clinician Unavailable BRAXTON, F Admitting Clinician Unavailable RENNER Admitting Clinician Unavailable Payers Payer Name Policy Type Policy Number Effective Date Expiration Date S vonnie [facility] - [id number] 2019 OUT OF STATE 00:00:00 [facility] [id number] 2017 CHOICE MEDICAID 00:00:00 Problems Condition Condition Condition Status Onset Resolution Last Treating Co mments Source Name Details Category Date Date Treatment Clinician Date Pain in Pain in Problem Active 2016-[address] [facility]05 [facility] (LUF/LI V/SA) Finding of Finding of Problem Active 2016-[address] increased increased 0-02 [facility] blood blood 00:00: [facility] pressure pressure 00 l (LUF/LI V/SA) Lymphadeno Lymphadeno Problem Active 2016-[address] katiuska katiuska 0-02 [facility] (LUF/LI V/SA) Dental Dental Problem Active 2016-[address] [facility] caries caries 0-02 [facility] l (LUF/LI V/SA) Backache [facility] (LUF/LI V/SA) Tinea Tinea Problem Active [facility] cruris cruris 7-30 [facility] 00:[facility]: [facility] 00 l (LUF/LI V/SA) No known No known Disease Unive rs active active ity of problems problems [facility] Allergies, Adverse Reactions, Alerts Allergy Allergy Status Severity Reaction(s) Onset Inactive Treating Comm ents Source Name Type Date Date Clinician Latex Propensi Active Rash Univers ty to 4-11 ity of adverse 00:00: [place] reaction 00 Medical s Branch LATEX DRUG Active Rash Univers INGREDI 411 ity of 00:00: [place] 00 Medical [place] No Known DA Active U [facility] Allergie 24 [place] s 00:00: d 00 Medical [place] SHRIMP DRUG Active Anaphylaxis Unive rs INGREDI 03-30 ity of 00:00: [place] 00 Medical [place] Shrimp Propensi Active Anaphylaxis Pt Uni vers ty to 03-30 reports ity of adverse 00:00: it is [place] reaction 00 only raw Medica l s shrimp. Branch Pt reports he can eat cooked shrimp. Social History Social Habit Start Date Stop Date Quantity Comments Source History of tobacco 2002-10-17 Smoker Univer sity of use 00:00:[address] [facility] Exposure to Not sure University of SARS-CoV-2 (event) [facility] Alcohol intake 2020-02-06 2020-02-06 Current University of 00:00:00 00:00:00 non-drinker of [facility] alcohol Branch (finding) Tobacco use and 2017-10-17 2017-10-17 Never used Universit y of exposure 00:00:00 00:00:[address] [facility] Cigarettes smoked 2017-10-17 2017-10-17 Univers ity of current (pack per 00:00:00 00:00:00 [facility] ) - Reported Branch Cigarette 2017-10-17 2017-10-17 University of pack-years 00:00:00 00:00:[address] [facility] Sex Ass[birth year] At [birth year] Universit y of 00:00:00 00:00:[address] [facility] Smoking Status Start Date Stop Date Source [facility] tobacco smoker [facility] ([facility]ABETH/SA) Current every day smoker 2017-10-17 00:00:[address] [facility] Medications Ordered Filled Start Stop Current Ordering Indication Dosage Frequency Signature Comments Components Source Medication Medication Date Date Medication? Clinician (SIG) Name Name dicyclomine No 20mg 20 mg, Uni vers (BENTYL) 09-30 Oral, ity of tablet 20 06:15: 05:16 ONCE, 1 [place] mg 00 :00 dose, On Medical Fri Branch 09/30/21 at 0115, [place] famotidine 2021- No 20mg 20 mg, Univ ers (PEPCID 09-30 Slow IV ity of (PF)) 06:15: 05:15 Push, [place] injection 00 :00 ONCE, 1 Medical 20 mg dose, On Branch 09/30/21 at 0115, [place] ondansetron 2021- No 4mg 4 mg, Slow Univers (ZOFRAN 09-30 IV Push, ity of (PF)) 06:15: 05:15 ONCE, 1 [place] injection 4 00 :00 dose, On Medi tami mg Fri Branch 09/30/21 at 0115, [place] NaCl 0.9% 2021- No 1000mL at 999 Uni vers (NS) bolus 09-30-25 mL/hr, ity of infusion 06:15: 06:32 1,000 mL, Kristian as 1,000 mL 00 :00 IV Medical Infusion, Branch ONCE, 1 dose, On 09/30/21 at 0115, STAT iopamidol 2021- No [id number] 110mL 110 mL, Univers (ISOVUE 3-25 03-25 Intravenou ity o f 370-500 mL) 05:56: 05:57 s, ONCE, 1 [place] injection 00 :00 dose, On Medica l 110 mL Fri Branch 09/30/21 at 0115, Routine ondansetron Yes [id number] 4mg Take 1 Univers 4 mg 3-25 tablet by ity of disintegrat 00:00: mouth [place] ing tablet 00 every 8 Medica l (eight) Branch hours as needed for Nausea and Vomiting (N/V). ondansetron Yes [id number] 4mg Take 1 Univers 4 mg 3-25 tablet by ity of disintegrat 00:00: mouth [place] ing tablet 00 every 8 Medica l (eight) Branch hours as needed for Nausea and Vomiting (N/V). levocetiriz 2021- Yes [id number] 5mg Take 1 Univers ine (XYZAL) 3-25 04-19 tablet by it y of 5 mg tablet 00:00: 04:59 mouth [place] 00 :00 every Medical evening Branch for 24 days. ondansetron 2019- No 4mg 4 mg, Slow Univers (ZOFRAN 02-15 IV Push, ity of (PF)) 04:37: 04:37 ONCE, 1 [place] injection 4 00 :00 dose, [place] Med ical mg 02/15/20 at Branch 2345, [place] ketorolac 2019- No 30mg 30 mg, Unive rs (TORADOL) 02-15 Slow IV ity of injection 03:15: 02:09 Push, [place] 30 mg 00 :00 ONCE, 1 Medical dose, [place] Branch 02/15/20 at 2215, [place]
Fa culty member approving Restricted medication : EMERGENCY ROOM, iohexol 2019- No 120mL 120 mL, Unive rs (OMNIPAQUE 02-15 Intravenou it y of 350 03:00: 03:00 s, ONCE, 1 [place] BULK-150 00 :00 dose, [place] Medica l mL) 02/15/20 at Branch injection 2200, 120 mL Routine hydrocortis 2020-0 Yes [id number] Insert Univers one 8-10 into ity of (ANUSOL-HC) 00:00: rectum 2 [place] 2.5 % 00 (two) Medical rectal times Branch cream daily. hydrocortis 2020-0 Yes [id number] Insert Univers one 8-10 into ity of (ANUSOL-HC) 00:00: rectum 2 [place] 2.5 % 00 (two) Medical rectal times Branch cream daily. hydrocortis 2020-0 Yes [id number] Insert Univers one 8-10 into ity of (ANUSOL-HC) 00:00: rectum 2 [place] 2.5 % 00 (two) Medical rectal times Branch cream daily. cephALEXin 2019-0 2020- No [id number] 500mg Take 1 Univers (KEFLEX) 02-05 08-08 capsule by ity of 500 mg 00:00: 04:59 mouth 4 [place] capsule 00 :00 (four) Medical times [place] daily for 7 days. benzonatate 2020-0 2020- No [id number] 100mg Take 1 Univers (TESSALON 01-18 07-24 capsule by ity of YAEL) 100 00:00: 04:59 mouth 3 [place] mg capsule 00 :00 (three) Medica times [place] daily as needed for Cough for up to 10 days. doxycycline 2019-0 2020- No [id number] 100mg Take 1 Univers hyclate 100 01-18 07-21 tablet by it y of mg tablet 00:00: 04:59 mouth 2 [place] 00 :00 (two) Medical times [place] daily for 7 days. ondansetron 2019-0 2020- No 4mg 4 mg, Slow Univers (ZOFRAN 3-14 03-14 IV Push, ity of (PF)) 02:15: 01:15 ONCE, 1 [place] injection 4 00 :00 dose, Fri Med ical mg 09/19/19 at Branch 2115, [place] morpHINE 2019-0 2020- No 4mg 4 mg, Slow Un [place] injection 4 3-14 03-14 IV Push, ity of mg 02:15: 01:15 ONCE, 1 [place] 00 :00 dose, Fri Medical 09/19/19 at Branch 2115, STAT dicyclomine 2019-0 2019- No 20mg 20 mg, Uni vers (BENTYL) 09-19 03-14 Intramuscu ity of injection 02:15: 01:14 [place], ONCE [place] 20 mg 00 :00 NOW, 1 Medical dose, Fri [place] 09/19/19 at 2115, Routine NaCl 0.9% 2019-2019- No 1000mL at 999 Uni vers (NS) bolus 09-18-14 mL/hr, ity of infusion 23:00: 01:26 1,000 mL, [place]ian as 1,000 mL 00 :00 IV Medical Infusion, [place] ONCE, 1 dose, 09/19/19 at 1800, [place] docusate 2019-2019- No [id number] 100mg Take 1 U nivers 100 mg 09-18 capsule by ity of capsule 00:00: 04:59 mouth [place] 00 :00 daily for Medical 7 days. [place] dicyclomine 2019-0 2020- No [id number] 20mg Take 1 Univers 20 mg 09-18 tablet by ity of tablet 00:00: 04:59 mouth 4 [place] 00 :00 (four) Medical times [place] daily for 7 days. polyethlene 2019- 2020- No [id number] 17g Take 17 g Univers glycol 09-1818 by mouth ity of powder 00:00: 04:59 daily for [place] packet 00 :00 4 days. Medical Branch iohexol 2019-0 2020- No 120mL 120 mL, Unive rs (OMNIPAQUE 1-28 07-20 Intravenou it y of 350 03:00: 02:41 s, ONCE, 1 [place] BULK-100 00 :00 dose, Sun Medica l mL) 07/27/19 at [place] injection 2100, 120 mL Routine dicyclomine 2019-0 Yes 10mg 10 mg, Univ ers (BENTYL) 1-20 Oral, QID, ity o f capsule 10 02:00: First dose [place] mg 00 on [place] Medical 07/27/19 at Branch 2000, Until Discontinu ed, Routine dicyclomine 2020-0 Yes [id number] 10mg Take 1 Univers (BENTYL) 10 -19 capsule by it y of mg capsule 00:00: mouth [place] 00 every 8 Medical (eight) Branch hours as needed for Abdominal pain. ondansetron 2020-0 Yes [id number] 4mg Take 1 Univers 4 mg 1-19 tablet by ity of disintegrat 00:00: mouth [place] ing tablet 00 every 8 Medica l (eight) Branch hours as needed for Nausea and Vomiting (N/V). methylPREDN 2020-0 Yes [id number] Take by Univers ISolone 1-19 mouth ity of (MEDROL, 00:00: SEE-INSTRU [place] as JENNY,) 4 mg 00 CTIONS. Medica l tablets follow Branch package directions dicyclomine 2020-0 Yes [id number] 10mg Take 1 Univers (BENTYL) 10 1-19 capsule by it y of mg capsule 00:00: mouth [place] 00 every 8 Medical (eight) Branch hours as needed for Abdominal pain. ondansetron 2020-0 Yes [id number] 4mg Take 1 Univers 4 mg 1-19 tablet by ity of disintegrat 00:00: mouth [place] ing tablet 00 every 8 Medica l (eight) Branch hours as needed for Nausea and Vomiting (N/V). methylPREDN 2020-0 Yes [id number] Take by Univers ISolone 1-19 mouth ity of (MEDROL, 00:00: SEE-INSTRU [place] as JENNY,) 4 mg 00 CTIONS. Medica l tablets follow Branch package directions dicyclomine 2020-0 Yes [id number] 10mg Take 1 Univers (BENTYL) 10 1-19 capsule by it y of mg capsule 00:00: mouth [place] 00 every 8 Medical (eight) Branch hours as needed for Abdominal pain. ondansetron 2020-0 Yes [id number] 4mg Take 1 Univers 4 mg 1-19 tablet by ity of disintegrat 00:00: mouth [place] ing tablet 00 every 8 Medica l (eight) Branch hours as needed for Nausea and Vomiting (N/V). methylPREDN 2020-0 Yes [id number] Take by Univers ISolone 1-19 mouth ity of (MEDROL, 00:00: SEE-INSTRU [place] as JENNY,) 4 mg 00 CTIONS. Medica l tablets follow Branch package directions dicyclomine 2020-0 Yes [id number] 10mg Take 1 Univers (BENTYL) 10 1-19 capsule by it y of mg capsule 00:00: mouth [place] 00 every 8 Medical (eight) Branch hours as needed for Abdominal pain. ondansetron 2020-0 Yes [id number] 4mg Take 1 Univers 4 mg 1-19 tablet by ity of disintegrat 00:00: mouth [place] ing tablet 00 every 8 Medica l (eight) Branch hours as needed for Nausea and Vomiting (N/V). methylPREDN 2020-0 Yes [id number] Take by Univers ISolone 1-19 mouth ity of (MEDROL, 00:00: SEE-INSTRU [place] JENNY,) 4 mg 00 CTIONS. Medica l tablets follow Branch package directions dicyclomine 2020-0 Yes [id number] 10mg Take 1 Univers (BENTYL) 10 1-19 capsule by it y of mg capsule 00:00: mouth [place] 00 every 8 Medical (eight) Branch hours as needed for Abdominal pain. ondansetron 2020-0 Yes [id number] 4mg Take 1 Univers 4 mg 1-19 tablet by ity of disintegrat 00:00: mouth [place] ing tablet 00 every 8 Medica l (eight) Branch hours as needed for Nausea and Vomiting (N/V). methylPREDN 2020-0 Yes [id number] Take by Univers ISolone 1-19 mouth ity of (MEDROL, 00:00: SEE-INSTRU [place] as JENNY,) 4 mg 00 CTIONS. Medica l tablets follow Branch package directions sucralfate 2020-0 Yes [id number] 1g Take 1 U nivers 1 gram 1-19 tablet by ity of tablet 00:00: mouth [place] 00 before Medical meals and Branch at bedtime. dicyclomine 2020-0 Yes [id number] 10mg Take 1 Univers (BENTYL) 10 1-19 capsule by it y of mg capsule 00:00: mouth [place] 00 every 8 Medical (eight) Branch hours as needed for Abdominal pain. ondansetron 2020-0 Yes [id number] 4mg Take 1 Univers 4 mg 1-19 tablet by ity of disintegrat 00:00: mouth [place] ing tablet 00 every 8 Medica l (eight) Branch hours as needed for Nausea and Vomiting (N/V). methylPREDN 2020-0 Yes [id number] Take by Univers ISolone 1-19 mouth ity of (MEDROL, 00:00: SEE-INSTRU [place] as JENNY,) 4 mg 00 CTIONS. Medica l tablets follow Branch package directions dicyclomine 2020-0 Yes [id number] 10mg Take 1 Univers (BENTYL) 10 1-19 capsule by it y of mg capsule 00:00: mouth [place] 00 every 8 Medical (eight) Branch hours as needed for Abdominal pain. ondansetron 2020-0 Yes [id number] 4mg Take 1 Univers 4 mg 1-19 tablet by ity of disintegrat 00:00: mouth [place] ing tablet 00 every 8 Medica l (eight) Branch hours as needed for Nausea and Vomiting (N/V). methylPREDN 2020-0 Yes [id number] Take by Univers ISolone 1-19 mouth ity of (MEDROL, 00:00: SEE-INSTRU [place] as JENNY,) 4 mg 00 CTIONS. Medica l tablets follow Branch package directions dicyclomine 2020-0 Yes [id number] 10mg Take 1 Univers (BENTYL) 10 1-19 capsule by it y of mg capsule 00:00: mouth [place] 00 every 8 Medical (eight) Branch hours as needed for Abdominal pain. ondansetron 2020-0 Yes [id number] 4mg Take 1 Univers 4 mg 1-19 tablet by ity of disintegrat 00:00: mouth [place] ing tablet 00 every 8 Medica l (eight) Branch hours as needed for Nausea and Vomiting (N/V). methylPREDN 2020-0 Yes [id number] Take by Univers ISolone 1-19 mouth ity of (MEDROL, 00:00: SEE-INSTRU [place] as JENNY,) 4 mg 00 CTIONS. Medica l tablets follow Branch package directions sucralfate 2020-0 Yes [id number] 1g Take 1 U nivers 1 gram 1-19 tablet by ity of tablet 00:00: mouth [place] 00 before Medical meals and Branch at bedtime. dicyclomine 2020-0 Yes [id number] 10mg Take 1 Univers (BENTYL) 10 1-19 capsule by it y of mg capsule 00:00: mouth [place] 00 every 8 Medical (eight) Branch hours as needed for Abdominal pain. ondansetron 2020-0 Yes [id number] 4mg Take 1 Univers 4 mg 1-19 tablet by ity of disintegrat 00:00: mouth [place] ing tablet 00 every 8 Medica l (eight) Branch hours as needed for Nausea and Vomiting (N/V). methylPREDN 2020-0 Yes [id number] Take by Univers ISolone 1-19 mouth ity of (MEDROL, 00:00: SEE-INSTRU [place] as JENNY,) 4 mg 00 CTIONS. Medica l tablets follow Branch package directions sucralfate 2020-0 Yes [id number] 1g Take 1 U nivers 1 gram 1-19 tablet by ity of tablet 00:00: mouth [place] 00 before Medical meals and Branch at bedtime. dicyclomine 2020-0 Yes [id number] 10mg Take 1 Univers (BENTYL) 10 1-19 capsule by it y of mg capsule 00:00: mouth [place] 00 every 8 Medical (eight) Branch hours as needed for Abdominal pain. ondansetron 2020-0 Yes [id number] 4mg Take 1 Univers 4 mg 1-19 tablet by ity of disintegrat 00:00: mouth [place] ing tablet 00 every 8 Medica l (eight) Branch hours as needed for Nausea and Vomiting (N/V). methylPREDN 2020-0 Yes [id number] Take by Univers ISolone 1-19 mouth ity of (MEDROL, 00:00: SEE-INSTRU [place] as EJNNY,) 4 mg 00 CTIONS. Medica l tablets follow Branch package directions sucralfate 2020-0 Yes [id number] 1g Take 1 U nivers 1 gram 1-19 tablet by ity of tablet 00:00: mouth [place] 00 before Medical meals and Branch at bedtime. dicyclomine 2020-0 Yes [id number] 10mg Take 1 Univers (BENTYL) 10 1-19 capsule by it y of mg capsule 00:00: mouth [place] 00 every 8 Medical (eight) Branch hours as needed for Abdominal pain. ondansetron 2020-0 Yes [id number] 4mg Take 1 Univers 4 mg 1-19 tablet by ity of disintegrat 00:00: mouth [place] ing tablet 00 every 8 Medica l (eight) Branch hours as needed for Nausea and Vomiting (N/V). methylPREDN 2020-0 Yes [id number] Take by Univers ISolone 1-19 mouth ity of (MEDROL, 00:00: SEE-INSTRU [place] as JENNY,) 4 mg 00 CTIONS. Medica l tablets follow Branch package directions sucralfate 2020-0 2020- No [id number] 1g Take 1 Univers 1 gram 1-19 07-13 tablet by ity of tablet 00:00: 00:00 mouth [place] 00 :00 before Medical meals and Branch at bedtime. omeprazole 0 2020- No [id number] 20mg Take 1 Univers 20 mg 07-27- capsule by ity of capsule 00:00: 05:59 mouth [place] 00 :00 daily for Medical 30 days. Branch metoclopram 2018-07 Yes [id number] 10mg Take 1 Univers nba HCl 10 1-18 tablet by ity of mg tablet 00:00: mouth [place] 00 every 6 Medical (six) Branch hours as needed for Nausea and Vomiting (N/V). metoclopram 2018-07 Yes [id number] 10mg Take 1 Univers nba HCl 10 1-18 tablet by ity of mg tablet 00:00: mouth [place] 00 every 6 Medical (six) Branch hours as needed for Nausea and Vomiting (N/V). metoclopram 2018-07 Yes [id number] 10mg Take 1 Univers nba HCl 10 1-18 tablet by ity of mg tablet 00:00: mouth [place] 00 every 6 Medical (six) Branch hours as needed for Nausea and Vomiting (N/V). metoclopram 2018-07 Yes [id number] 10mg Take 1 Univers nba HCl 10 1-18 tablet by ity of mg tablet 00:00: mouth [place] 00 every 6 Medical (six) Branch hours as needed for Nausea and Vomiting (N/V). metoclopram 2018-07 Yes [id number] 10mg Take 1 Univers nba HCl 10 1-18 tablet by ity of mg tablet 00:00: mouth [place] 00 every 6 Medical (six) Branch hours as needed for Nausea and Vomiting (N/V). metoclopram 2018-07 Yes [id number] 10mg Take 1 Univers nba HCl 10 1-18 tablet by ity of mg tablet 00:00: mouth [place] 00 every 6 Medical (six) Branch hours as needed for Nausea and Vomiting (N/V). metoclopram 2018-07 Yes [id number] 10mg Take 1 Univers nba HCl 10 1-18 tablet by ity of mg tablet 00:00: mouth [place] 00 every 6 Medical (six) Branch hours as needed for Nausea and Vomiting (N/V). metoclopram 2018-07 Yes [id number] 10mg Take 1 Univers nba HCl 10 1-18 tablet by ity of mg tablet 00:00: mouth [place] 00 every 6 Medical (six) Branch hours as needed for Nausea and Vomiting (N/V). metoclopram 2018-07 Yes [id number] 10mg Take 1 Univers nba HCl 10 1-18 tablet by ity of mg tablet 00:00: mouth [place] 00 every 6 Medical (six) Branch hours as needed for Nausea and Vomiting (N/V). metoclopram 2018-07 Yes [id number] 10mg Take 1 Univers nba HCl 10 1-18 tablet by ity of mg tablet 00:00: mouth [place] 00 every 6 Medical (six) Branch hours as needed for Nausea and Vomiting (N/V). metoclopram 2018-07 Yes [id number] 10mg Take 1 Univers nba HCl 10 1-18 tablet by ity of mg tablet 00:00: mouth [place] 00 every 6 Medical (six) Branch hours as needed for Nausea and Vomiting (N/V). dicyclomine 2018-07 2020- No [id number] 20mg Take 1 Univers (BENTYL) 20 1-18 01-19 tablet by it y of mg tablet 00:00: 00:00 mouth [place] 00 :00 every 6 Medical (six) Branch hours as needed for Abdominal pain. varenicline 2018-0 Yes 1mg Take 1 Univ [...] mouth (three) Medical times Branch daily. varenicline 2018-0 Yes Take one Un [...] o f 0.5 mg 00:00: by mouth [place] (11)- 1 mg 00 once daily Med ical (42) tablet for 3 Branch days, then one 0.5mg tab twice daily for 4 days, then one 1mg tab twice daily. varenicline Yes Take one Un [place] (CHANTIX) 4-11 0.5mg tab ity o f 0.5 mg 00:00: by mouth [place] (11)- 1 mg 00 once daily Med ical (42) tablet for 3 Branch days, then one 0.5mg tab twice daily for 4 days, then one 1mg tab twice daily. Amoxicillin Amoxicillin No 875mg BID [facility] 875 MG Oral 875 MG Oral L ukes Tablet Tablet Memoria l (LUF/LI V/SA) cetirizine cetirizine No 5mg QD [facility] hydrochlori hydrochlori L ukes de 5 MG de 5 MG Memoria Oral Tablet Oral Tablet l (LUF/LI V/SA) Hydroxyzine Hydroxyzine No 25mg Q7H [facility] Memoria l (LUF/LI V/SA) Ibuprofen Ibuprofen No pain 5mg/kg TID [facility] Memoria l (LUF/LI V/SA) Ibuprofen Ibuprofen No pain 600mg Q5H [facility] 600 MG Oral 600 MG Oral L ukes Tablet Tablet Memoria l (LUF/LI V/SA) Nystatin Nystatin No 1applic TID [facility] [id number] [facility] UNT/ML / UNT/ML / Memoria Triamcinolo Triamcinolo l ne ne (LUF/LI Acetonide 1 Acetonide 1 V /SA) MG/ML MG/ML Topical Topical Cream Cream Vital Signs Vital Name Observation Time Observation Value Comments Source Systolic blood 2021-09-30 06:00:00 118 mm[Hg] Univer sity [facility] Diastolic blood 2021-09-30 06:00:00 78 mm[Hg] [facility] Heart rate 2021-09-30 06:00:00 89 /min [facility] Respiratory rate 2021-09-30 06:00:00 18 /min Univ ersity of [place] [facility] Oxygen saturation in 2021-09-30 06:00:00 93 /min University of Arterial blood by [facility] Pulse oximetry Branch Body temperature 2021-09-30 05:06:00 36.67 [place] Univ ersity of [place] [facility] Body height 2021-09-30 05:06:00 162.6 cm Universi ty [facility] [place] [facility] Body weight 2021-09-30 05:06:00 78.019 kg [facility]i ty of [place] [facility] BMI 2021-09-30 05:06:00 29.52 kg/m2 [facility] ty [facility] [place] [facility] Systolic blood 2020-02-16 05:15:00 137 mm[Hg] Univer sity of pressure [place] [facility] Diastolic blood 2020-02-16 05:15:00 93 mm[Hg] Unive rsity of pressure [place] [facility] Heart rate 2020-02-16 05:15:00 79 /min Universi ty of [place] [facility] Respiratory rate 2020-02-16 05:15:00 18 /min Univ ersity of [place] [facility] Oxygen saturation in 2020-02-16 05:15:00 99 /min University of Arterial blood by [facility] Pulse oximetry Branch Body temperature 2020-02-16 01:23:00 37.28 [place] Univ ers[facility] of [place] [facility] Body weight 2020-02-16 01:23:00 78.019 kg Universi ty of [place] [facility] BMI 2020-02-16 01:23:00 29.52 kg/m2 [facility] ty [facility] [place] [facility] Systolic blood 2020-02-06 22:28:00 129 mm[Hg] Univer sity of pressure [place] [facility] Diastolic blood 2020-02-06 22:28:00 93 mm[Hg] Unive rsity of pressure [place] [facility] Heart rate 2020-02-06 22:28:00 100 /min Universi ty of [place] [facility] Body temperature 2020-02-06 22:28:00 36.72 [place] Univ ers[facility] [place] [facility] Respiratory rate 2020-02-06 22:28:00 18 /min Univ ersity of [place] [facility] Body weight 2020-02-06 22:28:00 79.379 kg Universi ty of [place] [facility] BMI 2020-02-06 22:28:00 30.04 kg/m2 [facility] [place] [facility] Oxygen saturation in 2020-02-06 22:28:00 98 /min University of Arterial blood by [facility] Pulse oximetry Branch Systolic blood 2020-01-19 18:07:00 125 mm[Hg] Univer sity of pressure [place] [facility] Diastolic blood 2020-01-19 18:07:00 83 mm[Hg] Unive rsity of pressure [place] [facility] Heart rate 2020-01-19 18:07:00 83 /min [facility] [place] [facility] Body temperature 2020-01-19 18:07:00 37.11 [place] Univ [facility] [place] [facility] Respiratory rate 2020-01-19 18:07:00 17 /min Univ ersity of [place] [facility] Body height 2020-01-19 18:07:00 162.6 cm [facility] [place] [facility] Body weight 2020-01-19 18:07:00 79.379 kg [facility] [place] [facility] BMI 2020-01-19 18:07:00 30.04 kg/m2 [facility] [place] [facility] Oxygen saturation in 2020-01-19 18:07:00 98 /min University of Arterial blood by [facility] Pulse oximetry Branch Systolic blood 2019-09-20 00:00:00 124 mm[Hg] Univer sity of pressure [place] [facility] Diastolic blood 2019-09-20 00:00:00 75 mm[Hg] Unive rsity of pressure [place] [facility] Heart rate 2019-09-20 00:00:00 74 /min [facility] [place] [facility] Respiratory rate 2019-09-20 00:00:00 16 /min Univ ersity of [place] [facility] Oxygen saturation in 2019-09-20 00:00:00 95 /min University of Arterial blood by [facility] Pulse oximetry Branch Body temperature 2019-09-19 22:27:00 36.56 [place] [facility] [place] [facility] Body weight 2019-09-19 22:27:00 81.647 kg [facility] [place] [facility] BMI 2019-09-19 22:27:00 30.90 kg/m2 [facility] [place] [facility] Systolic blood 2019-07-28 03:49:00 123 mm[Hg] [facility] [place] [facility] Diastolic blood 2019-07-28 03:49:00 90 mm[Hg] [facility] [place] [facility] Heart rate 2019-07-28 03:49:00 72 /min [facility] Body temperature 2019-07-28 03:49:00 36.56 Pennie [facility] Respiratory rate 2019-07-28 03:49:00 18 /min [facility] Oxygen saturation in 2019-07-28 03:49:00 95 /min [facility] Arterial blood by [facility] Pulse oximetry Branch Body height 2019-07-28 00:55:00 162.6 cm [facility] Body weight 2019-07-28 00:55:00 81.647 kg [facility] BMI 2019-07-28 00:55:00 30.90 kg/m2 [facility] Respiratory Rate 2017-06-12 19:50:00 18 /min [facility] (LUF/ELISABETH/SA) O2% BldC Oximetry 2017-06-12 19:50:00 98 % [facility] (LUF/ELISABETH/SA) BP Systolic 2017-06-12 19:50:00 128 mm[Hg] [facility] (LUF/ELISABETH/SA) BP Diastolic 2017-06-12 19:50:00 68 mm[Hg] [facility] (LUF/ELISABETH/SA) Body Temperature 2017-06-12 17:02:00 98 F [facility] (LUF/ELISABETH/SA) Height 2017-06-12 17:02:00 65 in [facility] (LUF/ELISABETH/SA) Weight Measured 2017-06-12 17:02:00 174.98 lbs [facility] (LUF/ELISABETH/SA) BMI (Body Mass 2017-06-12 17:02:00 29.1 [facility] (LUF/ELISABETH/SA) Procedures Procedure Date / Time Performing Clinician Source Performed XR CHEST 2 VW 2021-09-30 06:06:29 Garth Iraheta [place] [facility] CT ABDOMEN PELVIS W 2021-09-30 06:04:14 Garth Iraheta [facility] CONTRAST [facility] COVID-19 (ID NOW RAPID 2021-09-30 05:20:00 Garth Iraheta [facility] [place] [facility] Medical Branch RAPID INFLUENZA A/B 2021-09-30 05:19:00 Garth Iraheta [facility] URINALYSIS 2021-09-30 05:18:00 Garth Iraheta [facility] LIPASE 2021-09-30 05:14:00 Garth Iraheta [facility] TROPONIN I 2021-09-30 05:14:00 Garth Iraheta [facility] COMP. METABOLIC PANEL 2021-09-30 05:14:00 Garth Iraheta [facility] ([id number]) Medical Branch CBC WITH DIFF 2021-09-30 05:14:00 Garth Iraheta [facility] NOTICE OF PRIVACY 2021-09-30 04:58:38 Doctor Unassigned, No [facility] PRACTICES Name [facility] CONSENT/REFUSAL FOR 2021-09-30 04:58:23 Doctor Unassigned, No [facility] [place] [facility] Name [facility] CT ABDOMEN PELVIS W 2020-02-16 02:52:29 Jamaal Trotter [facility] CONTRAST [facility] LIPASE 2020-02-16 02:01:00 Jamaal Trotter [facility] HEPATIC FUNCTION PANEL 2020-02-16 02:01:00 Jamaal Trotter [facility] ([id number]) (ALB,T.PRO,BILI Medical Branch T,BU/BC,ALT,AST,ALK PHOS) BASIC METABOLIC PANEL 2020-02-16 02:01:00 Jamaal Trotter [facility] (NA, K, CL, CO2, Medical Branch GLUCOSE, BUN, CREATININE, CA) CBC WITH DIFF 2020-02-16 02:01:00 Jamaal Trotter [facility] URINALYSIS 2020-02-16 02:01:00 Jamaal Trotter [facility] CONSENT/REFUSAL FOR 2020-02-06 22:17:29 Doctor [facility]igned, No [facility] XR KUB 2019-09-20 00:34:59 Annalisa Larson [facility] COMP. METABOLIC PANEL 2019-09-20 00:13:00 Annalisa Larson [facility] [place] ([id number] Medical [place] CBC WITH DIFFERENTIAL 2019-09-20 00:13:00 Annalisa Larson [facility] URINALYSIS 2019-09-20 00:13:00 Annalisa Larson [facility] NOTICE OF PRIVACY 2019-09-19 22:17:17 Doctor [facility]igned, No [facility] CONSENT/REFUSAL FOR 2019-09-19 22:17:05 Doctor Unassigned, No [facility] [place] [facility] Name [facility] CT ABDOMEN PELVIS W 2019-07-28 02:46:48 Sabi Berman [facility] CONTR[facility] LIPASE 2019-07-28 01:34:00 Sabi Berman [facility] COMP. METABOLIC PANEL 2019-07-28 01:34:00 Sabi Berman [facility] ([id number]) [facility] CBC WITH DIFFERENTIAL 2019-07-28 01:34:00 Sabi Berman [facility] CONSENT/REFUSAL FOR 2019-07-28 00:45:36 Doctor Unassigned, No [facility] [place] DIAGNOSIS AND TREATMENT Name [facility] Encounters Start End Encounter Admission Attending Care Care Encounter Source Date/Time Date/Time Type Type Clinicians Facility Department ID 2021-05-06 Emergency [facility] [id number] Univers 11:24:52 ity [facility] 2021-05-06 Emergency [facility] [id number] Univers 10:10:15 ity [facility] 2021-11-16 2021-11-[address] [facility] [id number] Univers 00:00:00 00:00:00 Xiang SPECIALTY [id number] ity [facility] [id number] Kristian as CENTER AT [phone] Mt cj SHARAD Springer2 Branch [place] 2021-11-15 2021-11-15 Outpatient R [facility] [id number] Univers 09:00:00 09:00:00 [id number] ity [facility] 2021-11-15 2021-11-15 Outpatient R [facility] [id number] Univers 09:00[facility]00 [facility] 2021-10-26 2021-10-26 Inpatient EL RPIYANKA ZelayaPM RADI [id number] [facility] 11:00:00 11:00:00 [place] [id number] [facility] 2021-10-18 2021-10-18 Out[id number] 08:05:00 08:05:00 Rosalva [id number] [facility] 2021-09-30 2021-09-30 Emergency X LILY, [facility] ERT [id number] Univers 00:02:00 01:41:00 GARTH [facility] 2021-09-30 2021-09-30 Emergency Lily, [facility] [id number] Univers 00:02:00 01:41:00 Garth WEST [id number] i ty of [place] 4.2.7.2.686 [facility] [id number] [address] 2021-06-22 2021-06-22 Outpatient R [facility] [id number] Univers 20:15:00 20:15:00 [id number] [facility] 2021-06-22 2021-06-22 Outpatient R UNKNOWN, [facility] [id number] Univers 20:15:00 20:15:00 [facility] 2020-02-15 2020-02-16 Emergency Jamaal Trotter [facility] [id number] Univers 20:25:00 00:23:00 Willa [place] [id number] i ty of [place] 4.2.7.2.686 [facility] [id number] [address] 2020-02-06 2020-02-06 Emergency Christine, [facility] [id number] Univers 17:30:03 18:06:00 Jamaal [place] [id number] i ty of [place] 4.2.7.2.686 [facility] [id number] [address] 2020-02-06 2020-02-06 Orders Doctor MAKAYLA [id number] Univers 00:00:00 00:00:00 Only Unassigned, CHARLA [id number] ity of [facility] 4.2.7.2.686 Kristian as [phone] [facility] [address] [place] 2020-02-03 2020-02-03 Telephone Pob1, Acute [facility] [id number] Univers 00:00:00 00:00:[address] [facility] [id number] ity of [place] 4.2.7.2.686 Kristian as Professio [phone] Mt dical [address] Office Building [facility] 2020-01-19 2020-01-19 Urgent Pob1, [facility] [place] 1. 2.840.114 [id number] Univers 13:01:51 13:40:36 Care Tena [facility] [id number] ity of [place] 4.2.7.2.686 Kristian as Professio [phone] [address] Office Building [facility] 2020-01-19 2020-01-19 Outpatient R [facility] [id number] Univers 13:00:00 13:00:[id number] [facility] 2020-01-19 2020-01-19 Outpatient R [facility] [id number] Univers 13:00:00 13:00:[address] [facility] 2020-01-19 2020-01-19 Letter Doctor MAKAYLA 1.2.840.114 [id number] Univers 00:00:00 00:00:00 (Out) Unassigned, CHARLA [id number] ity of [facility] 4.2.7.2.686 Kristian as [phone] [facility] [address] [place] 2020-01-09 2020-01-09 Outpatient R [facility] [id number] Univers 09:40:00 09:40:[address] [facility] 2020-01-09 2020-01-09 Outpatient R [facility] [id number] Univers 09:40:00 09:40:[address] [facility] 2019-09-19 2019-09-19 Emergency X IBIKUNLE, [facility] ERT [id number] Univers 18:38:25 20:38:00 FOLUSHO ity of [facility] 2019-09-19 2019-09-[address] [facility] 1.2.840.114 [id number] Univers 18:38:25 20:38:00 Annalisa [place] [id number] ity of [place] 4.2.7.2.686 [place] [phone] [place] [address]8074 Branch 2019-09-19 2019-09-19 Orders Doctor MAKAYLA 1.2.840.114 [id number] Univers 00:00:00 00:00:00 Only Unassigned, CHARLA [id number] [facility] 4.2.7.2.686 Kristian [phone] [place] [address] Branch 2019-07-27 2019-07-27 Emergency , [facility] [id number] Univers 18:49:37 21:53:00 Sabi Kelsi 350.1.13.10 i ty of [place] [id number] [facility] [id number] [place] 988074 Branch 2017-06-12 2017-06-12 STRAIN 1 RENNER, [facility] PATEL [facility] [id number] 16:57:00 19:55:00 [facility] FASCIA , [address] [facility] ([facility], PATEL V/) [place] [address] Results Test Description Test Time Test Comments Results Result Comments Source TROPONIN I 2021-09-30 05:53:09 Test Item Value Reference Range Interpretation Comme nts TROPONIN I (test code = 0.006 ng/mL See_Comment [Au tomated message] The 6162849503) system which ge nerated this result tra nsmitted reference range : <=0.034. The reference r abhijit was not used to int erpret this result as normal/abnormal . EVERTON (test code = EVERTON) Reference (Normal) Range (defined by the 99th percentile reference limit): <= 0.034 ng/mL Note: Cardiac troponin begins to rise 3-4 hours after the onset of ischemia. Repeat in 4-6 hours if the sample was drawn within 3-4 hours of the onset of the symptom and found normal. Diagnosis of myocardial injury is made with acute changes in cTn concentrations with at least one serial sample above the 99th percentile upper reference limit (URL), taken together with the patient's clinical presentation. Biotin has been reported to cause a negative bias, interpret results relative to patient's use of biotin. Lab Interpretation Normal (test code = 30152-4) [facility]. METABOLIC PANEL ([id number])2021-09-30 05:41:27 Test Item Value Reference Range Interpretation Comments NA (test code = 138 mmol/L 135-145 7741591461) K (test code = 4.2 mmol/L 3.5-5.0 7007438287) CL (test code = 106 mmol/L 98-108 7664317648) CO2 TOTAL (test code = 21 mmol/L 23-31 L 2146715768) AGAP (test code = 2-16 6200118792) BUN (test code = 12 mg/dL 7-23 9518878212) GLUCOSE (test code = 100 mg/dL 70-110 2459280942) CREATININE (test code = 0.93 mg/dL 0.60-1.25 5583196139) TOTAL BILI (test code = 0.5 mg/dL 0.1-1.9 7594710309) CALCIUM (test code = 9.3 mg/dL 8.6-10.6 8420777603) T PROTEIN (test code = 7.3 g/dL 6.3-8.2 3335206674) ALBUMIN (test code = 4.7 g/dL 3.5-5.0 1775274862) ALK PHOS (test code = 79 U/L 34-122 0595271137) ALTv (test code = 24 U/L 5-50 1742-6) AST(SGOT) (test code = 23 U/L 13-40 3576593070) eGFR (test code = mL/min/1.73m2 3796252233) EVERTON (test code = EVERTON) Association of [...] tests). Lab Interpretation Abnormal (test code = 97849-3) [facility]27 Test Item Value Reference Range Interpretation Comments LIPASE (test code = 5787009217) 98 U/L 0-220 Lab Interpretation (test code = Normal 16648-4) [facility] WITH [id number] 05:27:48 Test Item Value Reference Range Interpretation Comments WBC (test code = See_Comment [Automated 8752-2) message] The sy stem which generated this result transmitted reference range : 4.20 - 10.70 10*3/?L. The reference range was not used to interpret this result as normal/abnormal . RBC (test code = See_Comment [Automated 475-6) message] The sy stem which generated this result transmitted reference range : 4.26 - 5.52 10*6/?L. The reference range was not used to interpret this result as normal/abnormal . HGB (test code = 16.3 g/dL 12.2-16.4 398-7) HCT (test code = 45.3 % 38.4-49.3 4544-3) MCV (test code = 87.3 fL 81.7-95.6 787-2) MCH (test code = 31.4 pg 26.1-32.7 785-6) MCHC (test code = 36.0 g/dL 31.2-35.0 H 786-4) RDW-SD (test code = 38.5 fL 38.5-51.6 09790-5) RDW-CV (test code = 11.9 % 12.1-15.4 L 788-0) PLT (test code = See_Comment [Automated 777-3) message] The sy stem which generated this result transmitted reference range : 150 - 328 10*3/ ?L. The reference r abhijit was not used to interpret this result as normal/abnormal . MPV (test code = 9.8 fL 9.8-13.0 13521-6) NRBC/100 WBC (test See_Comment [Automat ed code = 9687978014) message] The system which generated this result transmitted reference range : 0.0 - 10.0 /100 WBCs. The refer ence range was not u sed to interpret th is result as normal/abnormal . NRBC x10^3 (test code <0.01 See_Comment [Auto mated = 8004672683) message] The s ystem which generated this result transmitted reference range : 10*3/?L. The reference range was not used to interpret this result as normal/abnormal . GRAN MAT (NEUT) % 54.4 % (test code = 770-8) IMM GRAN % (test code 0.30 % = 4714754636) LYMPH % (test code = 37.1 % 736-9) MONO % (test code = 7.3 % 5905-5) EOS % (test code = 0.6 % 713-8) BASO % (test code = 0.3 % 706-2) GRAN MAT x10^3(ANC) 5.34 10*3/uL 1.99-6.95 (test code = 7152831282) IMM GRAN x10^3 (test 0.03 10*3/uL 0.00-0.06 code = 3528508954) LYMPH x10^3 (test code 3.64 10*3/uL 1.09-3.23 H = 731-0) MONO x10^3 (test code 0.72 10*3/uL 0.36-1.02 = 742-7) EOS x10^3 (test code = 0.06 10*3/uL 0.06-0.53 711-2) BASO x10^3 (test code 0.03 10*3/uL 0.01-0.09 = 704-7) Lab Interpretation Abnormal (test code = 02430-1) [facility] PELVIS W [id number] 04:57:37Impression: No acute abnormalities evident. RL: 460 End of Report Ordering Physician: JAMAAL TROTTER History: Diarrhea. Perirectal [...] urinary bladder is unremarkable in appearance. There isno evidence ofcolitis. A normal appendix is identified. [...] are clear. The included bony structures are unremarkable.IMPRESSIONImpression: No acute abnormalities evident.RL: 460End of Report [facility] Metabolic Panel (NA, K, CL, CO2, GLUCOSE, BUN, CREATININE, CA)2020-02-16 02:37:00 Test Item Value Reference Range Interpretation Comments NA (test code = 138 mmol/L 135-145 1272789761) K (test code = 3.8 mmol/L 3.5-5 8179015946) CL (test code = 105 mmol/L 98-108 2454923413) CO2 TOTAL (test code = 25 mmol/L 23-31 4856333803) AGAP (test code = 2-16 2373334979) BUN (test code = 11 mg/dL 7-23 2919081516) GLUCOSE (test code = 111 mg/dL 70-110 H 0548857878) CREATININE (test code = 0.95 mg/dL 0.6-1.25 5073115537) CALCIUM (test code = 9.4 mg/dL 8.6-10.6 0251409411) eGFR Calculation mL/min/1.73m2 (Non-) (test code = 6562305122) eGFR Calculation mL/min/1.73m2 () (test code = 1241392501) EVERTON (test code = EVERTON) Association of [...] tests). Lab Interpretation Abnormal (test code = 48374-4) [facility] (ALB, T.PRO, BILI T, BU/BC, ALT, AST, ALK PHOS)2020-02-16 02:37:00 Test Item Value Reference Range Interpretation Comments TOTAL BILI (test code = 9295515885) 0.2 mg/dL 0.1-1.1 BILI UNCON (test code = 2057320334) 0.3 mg/dL 0.1-1.1 BILI CONJ (test code = 2452507799) 0.0 mg/dL 0-0.3 T PROTEIN (test code = 2097891392) 7.4 g/dL 6.3-8.2 ALBUMIN (test code = 6370793364) 4.5 g/dL 3.5-5 ALK PHOS (test code = 7830674942) 70 U/L 34-122 ALTv (test code = 1742-6) 19 U/L 5-50 AST(SGOT) (test code = 4627872585) 22 U/L 13-40 Lab Interpretation (test code = Normal 96947-9) [facility] [id number] 02:37:00 Test Item Value Reference Range Interpretation Comments LIPASE (test code = 7677253030) 71 U/L 0-220 Lab Interpretation (test code = Normal 52174-0) [facility]ysis2020-08-10 02:31:00 Test Item Value Reference Range Interpretation Comments APPEARANCE (test code = Clear Clear 4355370622) COLOR (test code = Yellow Yellow 0589302996) PH (test code = 4.8-8.0 1188848209) SP GRAVITY (test code = 1.003-1.030 4282169094) GLU U QUAL (test code = Normal Normal 9198949082) BLOOD (test code = Negative Negative 3411954031) KETONES (test code = 5 mg/dL Negative A 0505285784) PROTEIN (test code = Negative Negative 2887-8) UROBILIN (test code = 2.0 mg/dL Normal A 5256570498) BILIRUBIN (test code = Negative Negative 7114207249) NITRITE (test code = Negative Negative 2813583458) LEUK EMMANUEL (test code = Negative Negative 2831798743) RBC/HPF (test code = <1 See_Comment [Autom ated message] 9515734106) The system Process Data [employer] generated this result transmit clay reference range : 0 - 3 HPF. The refe rence range was not u sed to interpret th is result as normal/abnormal . WBC/HPF (test code = <1 See_Comment [Autom ated message] 2265161902) The system [employer] Data [employer] generated this result transmit clay reference range : 0 - 5 HPF. The refe rence range was not u sed to interpret th is result as normal/abnormal . BACTERIA (test code = Negative Negative 9738655240) MUCOUS (test code = Slight Negative LPF A 1458713474) SQ EPITH (test code = <1 HPF 5659236304) Lab Interpretation (test Abnormal code = 09692-0) [facility] with [id number] 02:23:00 Test Item Value Reference Range Interpretation Comments WBC (test code = See_Comment [Automated 1081-2) message] The sy stem which generated this result transmitted reference range : 4.20 - 10.70 10*3/?L. The reference range was not used to interpret this result as normal/abnormal . RBC (test code = See_Comment [Automated 041-8) message] The sy stem which generated this [...] (test code = 35.2 fL 38.5-51.6 L 09989-2) RDW-CV (test code = 11.3 % 12.1-15.4 L 788-0) PLT (test code = See_Comment [Automated 777-3) message] The sy stem which generated this result transmitted reference range : 150 - 328 10*3/ ?L. The reference r abhijit was not used to interpret this result as normal/abnormal . MPV (test code = 10.0 fL 9.8-13 04065-0) NRBC/100 WBC (test See_Comment [Automat ed code = 6901389918) message] The system which generated this result transmitted reference range : 0.0 - 10.0 /100 WBCs. The refer ence range was not u sed to interpret th is result as normal/abnormal . NRBC x10^3 (test code <0.01 See_Comment [Auto mated = 0158755888) message] The s ystem which generated this result transmitted reference range : 10*3/?L. The reference range was not used to interpret this result as normal/abnormal . GRAN MAT (NEUT) % 60.4 % (test code = 770-8) IMM GRAN % (test code 0.10 % = 9007016286) LYMPH % (test code = 32.6 % 736-9) MONO % (test code = 6.3 % 5905-5) EOS % (test code = 0.5 % 713-8) BASO % (test code = 0.1 % 706-2) GRAN MAT x10^3(ANC) 5.29 10*3/uL 1.99-6.95 (test code = 6297229014) IMM GRAN x10^3 (test <0.03 0-0.06 code = 8186292286) LYMPH x10^3 (test code 2.85 10*3/uL 1.09-3.23 = 731-0) MONO x10^3 (test code 0.55 10*3/uL 0.36-1.02 = 742-7) EOS x10^3 (test code = 0.04 10*3/uL 0.06-0.53 L 711-2) BASO x10^3 (test code <0.03 0.01-0.09 = 704-7) Lab Interpretation Abnormal (test code = 98460-2) [facility]2020-03-14 00:48:00 Test Item Value Reference Range Interpretation Comments APPEARANCE (test code = Clear Clear 6354263433) COLOR (test code = Straw Yellow A 3002391814) PH (test code = 4.8-8.0 6030452840) SP GRAVITY (test code = 1.003-1.030 7906699076) GLU U QUAL (test code = Normal Normal 5631320635) BLOOD (test code = Negative Negative 5039634366) KETONES (test code = Negative Negative 4606343045) PROTEIN (test code = Negative Negative 2887-8) UROBILIN (test code = Normal Normal 2179960879) BILIRUBIN (test code = Negative Negative 2299141566) NITRITE (test code = Negative Negative 7313692630) LEUK EMMANUEL (test code = Negative Negative 4365334055) RBC/HPF (test code = See_Comment [Autom ated message] 2915839890) The system Process Data [employer] generated this result transmitted ref erence range: 0 - 3 HP F. The reference range was not used to int erpret this result as normal/abnormal . WBC/HPF (test code = <1 See_Comment [Autom ated message] 3678024500) The system Process Data Control generated this result transmitted ref erence range: 0 - 5 HP F. The reference range was not used to int erpret this result as normal/abnormal . BACTERIA (test code = Negative Negative 9518347203) MUCOUS (test code = Slight Negative LPF A 0013508698) Lab Interpretation (test Abnormal code = 55877-7) [facility] METABOLIC PANEL (84277)2019-09-20 00:48:00 Test Item Value Reference Range Interpretation Comments NA (test code = 141 mmol/L 135-145 6438202402) K (test code = 3.9 mmol/L 3.5-5 9262940936) CL (test code = 106 mmol/L 98-108 5878830665) CO2 TOTAL (test code = 25 mmol/L 23-31 7919170655) AGAP (test code = 2-16 8890261948) BUN (test code = 14 mg/dL 7-23 6602802677) GLUCOSE (test code = 101 mg/dL 70-110 0028081852) CREATININE (test code 1.03 mg/dL 0.6-1.25 = 2598973006) TOTAL BILI (test code 0.3 mg/dL 0.1-1.1 = 6106537625) CALCIUM (test code = 9.9 mg/dL 8.6-10.6 1599530349) T PROTEIN (test code = 6.8 g/dL 6.3-8.2 3890961143) ALBUMIN (test code = 4.7 g/dL 3.5-5 0455997809) ALK PHOS (test code = 63 U/L 34-122 9466049255) ALTv (test code = 20 U/L 5-50 1742-6) AST(SGOT) (test code = 20 U/L 13-40 8988749221) eGFR Calculation mL/min/1.73m2 (Non-) (test code = 8369681747) eGFR Calculation mL/min/1.73m2 () (test code = 1464219717) EVERTON (test code = EVERTON) Association of [...] or urine or abnormalities in imaging tests). [facility] WITH [id number] 00:31:00 Test Item Value Reference Range Interpretation Comments WBC (test code = See_Comment [Automated 8990-2) message] The sy stem which generated this result transmitted reference range : 4.20 - 10.70 10*3/?L. The reference range was not used to interpret this result as normal/abnormal . RBC (test code = See_Comment [Automated 779-8) message] The sy stem which generated this [...] (test code = 38.2 fL 38.5-51.6 L 35264-9) RDW-CV (test code = 12.0 % 12.1-15.4 L 788-0) PLT (test code = See_Comment [Automated 777-3) message] The sy stem which generated this result transmitted reference range : 150 - 328 10*3/ ?L. The reference r abhijit was not used to interpret this result as normal/abnormal . MPV (test code = 10.0 fL 9.8-13 37325-8) NRBC/100 WBC (test See_Comment [Automat ed code = 9584897561) message] The system which generated this result transmitted reference range : 0.0 - 10.0 /100 WBCs. The refer ence range was not u sed to interpret th is result as normal/abnormal . NRBC x10^3 (test code <0.01 See_Comment [Auto mated = 7865081146) message] The s ystem which generated this result transmitted reference range : 10*3/?L. The reference range was not used to interpret this result as normal/abnormal . GRAN MAT (NEUT) % 60.6 % (test code = 770-8) IMM GRAN % (test code 0.40 % = 7096971899) LYMPH % (test code = 31.9 % 736-9) MONO % (test code = 6.1 % 5905-5) EOS % (test code = 0.8 % 713-8) BASO % (test code = 0.2 % 706-2) GRAN MAT x10^3(ANC) 5.02 10*3/uL 1.99-6.95 (test code = [id number]) IMM GRAN x10^3 (test 0.03 10*3/uL 0-0.06 code = 7044347051) LYMPH x10^3 (test code 2.65 10*3/uL 1.09-3.23 = 731-0) MONO x10^3 (test code 0.51 10*3/uL 0.36-1.02 = 742-7) EOS x10^3 (test code = 0.07 10*3/uL 0.06-0.53 711-2) BASO x10^3 (test code <0.03 0.01-0.09 = 704-7) Lab Interpretation Abnormal (test code = 13869-2) [facility] [id number] 02:58:35Impression: 1. Fluid-filled, nondilated distal small bowel loops with mucosal foldthickening, suggestive of enteritis.2. Normal appendix. No free air or free fluid. RL: [id number]: [id number] End of Report Exam: CT Abdomen and [...] No free air or free fluid.RL: [id number]: [id number] of Report [facility]. METABOLIC PANEL ([id number])2019-07-28 02:28:00 Test Item Value Reference Range Interpretation Comments NA (test code = 140 mmol/L 135-145 7727974780) K (test code = 3.8 mmol/L 3.5-5 2707853092) CL (test code = 107 mmol/L 98-108 0363292266) CO2 TOTAL (test code = 24 mmol/L 23-31 2712483910) AGAP (test code = 2-16 9974073996) BUN (test code = 14 mg/dL 7-23 7464588683) GLUCOSE (test code = 119 mg/dL 70-110 H 1217383017) CREATININE (test code = 1.03 mg/dL 0.6-1.25 4742086395) TOTAL BILI (test code = 0.2 mg/dL 0.1-1.8 4920068887) CALCIUM (test code = 9.6 mg/dL 8.6-10.6 6899225078) T PROTEIN (test code = 7.8 g/dL 6.3-8.2 7055155530) ALBUMIN (test code = 4.9 g/dL 3.5-5 7333710621) ALK PHOS (test code = 69 U/L 34-122 3936214700) ALTv (test code = 47 U/L 5-50 1742-6) AST(SGOT) (test code = 30 U/L 13-40 1596616329) eGFR Calculation mL/min/1.73m2 (Non-) (test code = 7815701169) eGFR Calculation mL/min/1.73m2 () (test code = 9885328035) EVERTON (test code = EVERTON) Association of [...] tests). Lab Interpretation Abnormal (test code = 74304-4) [facility]00 Test Item Value Reference Range Interpretation Comments LIPASE (test code = 7158018940) 103 U/L 0-220 Lab Interpretation (test code = Normal 89034-8) [facility] WITH [id number] 02:09:00 Test Item Value Reference Range Interpretation Comments WBC (test code = See_Comment [Automated 9190-2) message] The sy stem which generated this [...] (test code = 35.8 fL 38.5-51.6 L 27365-9) RDW-CV (test code = 11.8 % 12.1-15.4 L 788-0) PLT (test code = See_Comment [Automated 777-3) message] The sy stem which generated this result transmitted reference range : 150 - 328 10*3/ ?L. The reference r abhijit was not used to interpret this result as normal/abnormal . MPV (test code = 10.2 fL 9.8-13 50612-7) NRBC/100 WBC (test See_Comment [Automat ed code = 9989797481) message] The system which generated this result transmitted reference range : 0.0 - 10.0 /100 WBCs. The refer ence range was not u sed to interpret th is result as normal/abnormal . NRBC x10^3 (test code <0.01 See_Comment [Auto mated = 3732395991) message] The s ystem which generated this result transmitted reference range : 10*3/?L. The reference range was not used to interpret this result as normal/abnormal . GRAN MAT (NEUT) % 59.2 % (test code = 770-8) IMM GRAN % (test code 0.20 % = 8829090497) LYMPH % (test code = 31.1 % 736-9) MONO % (test code = 8.5 % 5905-5) EOS % (test code = 0.8 % 713-8) BASO % (test code = 0.2 % 706-2) GRAN MAT x10^3(ANC) 5.01 10*3/uL 1.99-6.95 (test code = 3554742553) IMM GRAN x10^3 (test <0.03 0-0.06 code = 7701472128) LYMPH x10^3 (test code 2.63 10*3/uL 1.09-3.23 = 731-0) MONO x10^3 (test code 0.72 10*3/uL 0.36-1.02 = 742-7) EOS x10^3 (test code = 0.07 10*3/uL 0.06-0.53 711-2) BASO x10^3 (test code <0.03 0.01-0.09 = 704-7) Lab Interpretation Abnormal (test code = 61396-4) [facility]PELVIS W/O [id number] 19:08:00NPO 4 hours. Do not withhold medsProcedure: [...] MD 06/12/20177:01 PMDictated By: ENZO CABRERA.Date: 06/12/2017 19:[id number] 18:51:00 Test Item Value Reference Range Interpretation [...] 4 - SerumAlbu min)] EGFR if >60 [place] (test code mL/min/1.73m\\ = EGFRAA) S\\2 EGFR if Non- >60 Estimate d Glomerular [place] (test code mL/min/1.73m\\ Filtrat ion Rate (eGFR) [...] 11 code = GAP) CBC WITH AUTO [id number] 18:02:00 Test Item Value Reference Range Interpretation [...] = 0 /100WBC 0-2 NRBC_AUTO) URINALYSIS WITHOUT [id number] 17:32:00 Test Item Value Reference Range Interpretation Comments Color (test code = UCOLR) Yellow Lt. Yellow A Clarity (test code = UCLAR) Clear Glucose (test code = UGLUC) Negative Negative N Bilirubin (test code = UBILI) Negative Negative N Ketones (test code = UKET) Negative Negative N Specific [place] (test code = 1.015 1.005-1.030 A USPGR) [...]
[2021-11-20] MEDS ORDERED: KETOROLAC 30 MG/ML INJ ONE (01:55)
[2021-11-20] MEDS ORDERED: DIPHENHYDRAMINE 50 MG/ML VIAL ONE (01:55)
[2021-11-20] MEDS ORDERED: Ringers Lactate 1,000 ML IV ONE (01:55)
[2021-11-20] MEDS ORDERED: dexAMETHasone 4 MG/ML VIAL ONE (01:55)
[2021-11-20] MEDS ORDERED: METOCLOPRAMIDE 10 MG/2mL INJ ONE (01:57)
[2021-11-20 02:03] LABS: Absolute Lymphocytes (CBC) 3.7 K/uL (0.7-4.9); Hematocrit 42.2 % (39.6-49.0); MPV 7.8 fL (7.6-11.3); RBC Red Blood Cell Count 4.84 M/uL (4.33-5.43)
[2021-11-20 02:17] LABS: Potassium 3.7 mmol/L (3.5-5.1)
--- NOTE | 2021-11-20 03:51 | EDPHYS ---
Physician Documentation [facility] Name: Sunny Angel Age: 31 yrs Sex: Male : 1990 Arrival Date: 11/20/2021 Time: 00:47 Bed 20 Private MD: ED Physician Rodolfo Gilliland HPI: 11/20 01:25 This 31 yrs old Male presents to ER via Wheelchair with complaints of Dizziness, ms3 Nausea, Headache. 01:26 The patient complains of pain to the left side of the back of head, left occipital ms3 area, right side of the back of head and right occipital area. The patient describes the headache as constant. Onset: The symptoms/episode began/occurred 4 hour(s) ago. Associated signs and symptoms: The patient has no apparent associated signs or symptoms. Severity of symptoms: At its worst the pain was severe. Headache History: The patient has had previous headaches and this one is more severe than previous episodes. The symptoms are alleviated by nothing. the symptoms are aggravated by nothing. Historical: - Allergies: :10 Latex, Natural Rubber; tw5 01:10 SEAFOOD; tw5 - Home Meds: 01:10 sertraline 100 mg Oral tab 1 tab once daily [Active]; - PMHx: 01:10 depressive disorder; - PSHx: 01:10 hernia; oral SX; - Immunization history:: Flu vaccine is not up to date. - Social history:: Smoking status: Patient reports the use of cigarette tobacco products, smokes one pack cigarettes per day. ROS: 01:26 Constitutional: Negative for fever, and chills. Neck: Negative for injury, pain, and ms3 swelling, Cardiovascular: Negative for chest pain, and palpitations. Respiratory: Negative for shortness of breath, cough, wheezing, and pleuritic chest pain, Abdomen/GI: Negative for abdominal pain, nausea, vomiting, diarrhea, and constipation, MS/Extremity: Negative for injury and deformity, Skin: Negative for injury, rash, and discoloration. 01:26 Neuro: Positive for headache. 01:26 All other systems are negative. Exam: 01:26 Constitutional: This is a well developed, well nourished patient who is awake, alert, ms3 and in no acute distress. Head/Face: Normocephalic, atraumatic. Neck: Trachea midline, no cervical lymphadenopathy. Supple, full range of motion without nuchal rigidity, or vertebral point tenderness. No Meningismus. Chest/axilla: Normal chest wall appearance and motion. Nontender with no deformity. Cardiovascular: Regular rate and rhythm with a normal S1 and S2. No gallops, murmurs, or rubs. Normal PMI, no JVD. No pulse deficits. Respiratory: Lungs have equal breath sounds bilaterally, clear to auscultation and percussion. No rales, rhonchi or wheezes noted. No increased work of breathing, no retractions or nasal flaring. Abdomen/GI: Soft, non-tender, with normal bowel sounds. No distension or tympany. No guarding or rebound. No evidence of tenderness throughout. 01:26 Neuro: Orientation: is normal, Mentation: is normal, Memory: is normal, Cranial nerves: CN II- XII are normal as tested, Cerebellar function: is grossly normal, Motor: is normal, Sensation: is normal, no obvious gross deficits. Vital Signs: 01:08 BP 137 / 98; Pulse 64; Resp 18; Temp 97.8; Pulse Ox 98% on R/A; Weight 77.11 kg; Height tw5 5 ft. 4 in. (162.56 cm); Pain 8/10; 01:42 BP 121 / 93; Pulse 60; Resp 16; Temp 97.8(O); Pulse Ox 100% on R/A; Pain 10/10; sumi 03:37 BP 111 / 54; Pulse 68; Resp 16; Pulse Ox 100% on R/A; sumi 01:08 Body Mass Index 29.18 (77.11 kg, 162.56 cm) tw5 MDM: 01:26 Differential diagnosis: cluster headache, subarachnoid bleed, tension headache. ms3 01:39 Patient medically screened. ms3 03:50 Data reviewed: vital signs, nurses notes, lab test result(s), radiologic studies. Data ms3 interpreted: Pulse oximetry: on room air is 100 %. Interpretation: normal. Counseling: I had a detailed discussion with the patient and/or guardian regarding: the historical points, exam findings, and any diagnostic results supporting the discharge/admit diagnosis, lab results, radiology results, the need for outpatient follow up, to return to the emergency department if symptoms worsen or persist or if there are any questions or concerns that arise at home. ED course: Discussed obtaining LP with patient. Patient declines. Discussed risks and benefits of LP. Discussed without LP patient could have missed dx of SAH or infection, or other undiagnosed disorder. Discussed CT,labs, PE findings with patient. Patient to follow up as discussed. Patient understands/ agrees with plan. All questions answered. Return precautions given to include worsening symptoms, or any other concerns. Patient is improved, in NAD, non-toxic appearing, ambulatory in ED, speaking full sentences.. 11/20 01:24 Order name: CBC with Diff; Complete Time: 02: ms3 11/20 01:24 Order name: BMP; Complete Time: : ms3 11/20 01:25 Order name: CT Head Brain wo Cont ms3 Administered Medications: 02:06 Drug: Ketorolac 15 mg Route: IVP; Site: left antecubital; sumi 02:08 Follow up: Response: No adverse reaction sumi 02:06 Drug: Dexamethasone 8 mg Route: IVP; Site: left antecubital; sumi 02:08 Follow up: Response: No adverse reaction sumi 02:07 Drug: Reglan (metoCLOPramide) 10 mg Route: IVP; Site: left antecubital; sumi 02:07 Follow up: Response: No adverse reaction sumi 02:07 Drug: Benadryl (diphenhydrAMINE) 25 mg Route: IVP; Site: left antecubital; sumi 02:08 Follow up: Response: No adverse reaction sumi 02:07 Drug: Lactated Ringers Solution 1000 ml Route: IV; Rate: 4000 ml/hr; Site: left sumi antecubital; Disposition Summary: 11/20/21 03:50 Discharge Ordered Location: Home ms3 Condition: Stable ms3 Diagnosis - Headache ms3 Followup: ms3 - With: Hector Beal MD - When: 2 - 3 days - Reason: Recheck today's complaints Discharge Instructions: - Discharge Summary Sheet ms3 - General Headache Without Cause ms3 Forms: - Medication Reconciliation Form ms3 - Thank You Letter ms3 - Antibiotic Education ms3 - Prescription Opioid Use ms3 Signatures: Dispatcher [employer] EDMS Rodolfo Gilliland DO DO ms3 Oanh Knight tw5 Elizabeth Holcomb RN RN sumi
--- NOTE | 2021-11-20 03:51 | ER ---
Nurse's Notes [facility] Name: Sunny Angel Age: 31 yrs Sex: Male : 1990 Arrival Date: 11/20/2021 Time: 00:47 Bed 20 Private MD: Diagnosis: Headache Presentation: 11/20 01:08 Chief complaint: Patient states: "I dont feel, I started off with a really bad tw5 headache, my face, my neck hurts. I feel dizzy and I just dont feel right. I also have a sharp pain in my right leg. That just started.". Coronavirus screen: Vaccine status: Patient reports being unvaccinated. Ebola Screen: Patient negative for fever greater than or equal to 101.5 degrees Fahrenheit, and additional compatible Ebola Virus Disease symptoms Patient denies exposure to infectious person. Patient denies travel to an Ebola-affected area in the 21 days before illness onset. Initial Sepsis Screen: Does the patient meet any 2 criteria? No. Patient's initial sepsis screen is negative. Does the patient have a suspected source of infection? No. Patient's initial sepsis screen is negative. Risk Assessment: Do you want to hurt yourself or someone else? Patient reports no desire to harm self or others. Onset of symptoms was November 19, 2021 at 22:00. 01:08 Method Of Arrival: Wheelchair tw5 01:08 Acuity: GILBERT 3 tw5 Triage Assessment: 01:10 General: Appears uncomfortable, Behavior is cooperative. Pain: Complains of pain in tw5 "headache." Pain currently is 10 out of 10 on a pain scale. GI: Reports diarrhea. Historical: - Allergies: 01:10 Latex, Natural Rubber; tw5 01:10 SEAFOOD; tw5 - Home Meds: 01:10 sertraline 100 mg Oral tab 1 tab once daily [Active]; - PMHx: 01:10 depressive disorder; - PSHx: 01:10 hernia; oral SX; tw - Immunization history:: Flu vaccine is not up to date. - Social history:: Smoking status: Patient reports the use of cigarette tobacco products, smokes one pack cigarettes per day. Screenin:44 Abuse screen: Denies threats or abuse. Denies injuries from another. Nutritional sumi screening: No deficits noted. Tuberculosis screening: No symptoms or risk factors identified. Fall Risk None identified. Assessment: 01:14 Reassessment: No changes from previously documented assessment. Recv'd pt to room #20 sumi at this time. 01:45 GI: Abdomen is flat. sumi Vital Signs: 01:08 BP 137 / 98; Pulse 64; Resp 18; Temp 97.8; Pulse Ox 98% on R/A; Weight 77.11 kg; Height tw5 5 ft. 4 in. (162.56 cm); Pain 8/10; 01:42 BP 121 / 93; Pulse 60; Resp 16; Temp 97.8(O); Pulse Ox 100% on R/A; Pain 10/10; sumi 03:37 BP 111 / 54; Pulse 68; Resp 16; Pulse Ox 100% on R/A; sumi 01:08 Body Mass Index 29.18 (77.11 kg, 162.56 cm) tw5 ED Course: 00:47 Patient arrived in ED. bp1 01:05 Rodolfo Gilliland DO is Attending Physician. ms3 01:10 Triage completed. tw5 01:10 Arm band placed on right wrist. tw5 01:13 Elizabeth Holcomb, RN is Primary Nurse. sumi 01:44 No provider procedures requiring assistance completed. Inserted saline lock: 20 gauge sumi in left antecubital area, using aseptic technique. Blood collected. 01:45 Bed in low position. Call light in reach. Adult w/ patient. sumi 01:46 BMP Sent. sumi 01:47 CBC with Diff Sent. sumi 02:05 CT Head Brain wo Cont In Process Unspecified. EDMS 02:08 BMP Sent. sumi 03:49 Hector Beal MD is Referral Physician. ms3 04:18 intact, bleeding controlled, No redness/swelling at site. Pressure dressing applied. sumi Administered Medications: 02:06 Drug: Ketorolac 15 mg Route: IVP; Site: left antecubital; sumi 02:08 Follow up: Response: No adverse reaction sumi 02:06 Drug: Dexamethasone 8 mg Route: IVP; Site: left antecubital; sumi 02:08 Follow up: Response: No adverse reaction sumi 02:07 Drug: Reglan (metoCLOPramide) 10 mg Route: IVP; Site: left antecubital; sumi 02:07 Follow up: Response: No adverse reaction sumi 02:07 Drug: Benadryl (diphenhydrAMINE) 25 mg Route: IVP; Site: left antecubital; sumi 02:08 Follow up: Response: No adverse reaction sumi 02:07 Drug: Lactated Ringers Solution 1000 ml Route: IV; Rate: 4000 ml/hr; Site: left sumi antecubital; Medication: 01:45 VIS not applicable for this client. sumi Outcome: 01:45 Condition: stable sumi 03:50 Discharge ordered by ms3 04:18 Discharged to home ambulatory. sumi 04:18 Discharge instructions given to patient, Instructed on discharge instructions, follow up and referral plans. Demonstrated understanding of instructions, follow-up care. 04:18 Patient left the ED. sumi Signatures: Dispatcher [employer] EDMS Rodolfo Gilliland DO DO ms3 Rosario Horn Tiffany tw5 Elizabeth Holcomb, RN RN sumi
[2021-11-20 04:25] VITALS: TEMP 97.8
[2021-11-20 04:27] VITALS: O2SAT 100
[2021-11-20 04:28] VITALS: BP 111/54
--- NOTE | 2021-11-21 11:04 | RAD REPORT ---
EXAM DESCRIPTION: CT - Head Brain Wo Cont - 11/20/2021 7:00 am CLINICAL HISTORY: 31 years, Male, Headache, sudden, severe COMPARISON: None. FINDINGS: Multiple transaxial tomograms of the brain were obtained from the base of the skull to the vertex without contrast. 2-D multiplanar reformats and the coronal and sagittal plane were performed and reviewed. This exam was performed according to our departmental dose-optimization protocol, which includes auto mated exposure control, adjustment of the mA and/or kV according to patient size and/or use of iterat yunior reconstruction technique. Brain parenchyma as well as the dunaway and white matter differentiation demonstrate to be unremarkable. There is no midline shift and/or mass effect. There is no evidence for acute hemorrhage. No focal ar eas of hypodensities. Lateral ventricles and cisterns displace normal appearance. No intra or ext ra axial fluid collections were seen. The calvarium is intact with no evidence for fracture. The visu alized portions of the paranasal sinuses and orbits demonstrate to be clear. IMPRESSION: NO ACUTE INTRACRANIAL HEMORRHAGE. UNREMARKABLE CT SCAN OF THE HEAD WITHOUT CONTRAST. Electronically signed by: Kian Pena MD 11/20/2021 2:25 AM CDT Due to temporary technical issues with the PACS/Fluency reporting system, reports are being signed by the in house radiologist without review as a courtesy to ensure prompt reporting. The interpreting r adiologist is fully responsible for the content of the report.
== END 2021-11-20 04:18 | disposition home or self-care (01) ==
LOC: ER 00:43
DX: R51.9 Headache, unspecified (principal); F32.A Depression, unspecified; F17.210 Nicotine dependence, cigarettes, uncomplicated; Z91.013 Allergy to seafood; Z91.040 Latex allergy status; Z91.048 Other nonmedicinal substance allergy status
CPT/HCPCS: 85025; 80048; 36415; 70450; 96375; 96374; 99284; J1100; J2765; J1200; J7120

== ENCOUNTER 2022-02-14 20:56 | Emergency (ER) | payer OTHER ==
--- OUTSIDE RECORDS SUMMARY | 2022-02-14 21:02 | XMS REPORT | Continuity of Care Document ---
:1990 Author Organization [facility] t Address [address] [place] [address] Care Team Providers Name Role Phone ISSA ROGERS JR Primary Care Physician Unavailable RONALD SHIELDS Attending Clinician Unavailable Ronald Shields MD Attending Clinician Xiang Langston MD Attending Clinician Rosalva Zelaya Attending Clinician Unavailable GARTH BAUTISTA Attending Clinician Unavailable Garth Albarran Attending Clinician UNKNOWN, ATTENDING Attending Clinician Unavailable Jamaal Padilla Attending Clinician Jamaal Louise Attending Clinician Doctor Unassigned, [place] Attending Clinician Unavailable Po, [facility] Attending Clinician Unavailable Gregoria Jones Attending Clinician SWATI LIMON Attending Clinician Unavailable Swati Beckman Attending Clinician Sabi Berman DO Attending Clinician BLANCA RENNER Attending Clinician Unavailable RONALD SHIELDS Admitting Clinician Unavailable Physician, No Primary or Family Admitting Clinician UnavailGARTH Randhawa Admitting Clinician Unavailable SWATI LIMON Admitting Clinician Unavailable BLANCA RENNER Admitting Clinician Unavailable Payers Payer Name Policy Type Policy Number Effective Date Expiration Date S vonnie [employer] [place] - [id number] 2019 OUT OF STATE 00:00:00 [facility] [id number] 2017 CHOICE MEDICAID 00:00:00 Problems Condition Condition [...] rs active active ity of problems problems [facility] Allergies, Adverse Reactions, Alerts Allergy Allergy Status Severity Reaction(s) Onset Inactive Treating Comm ents Source Name Type Date Date Clinician Latex Propensi Active Rash Univers ty to 4-11 ity of adverse 00:00: [place] reaction Medical s Branch LATEX DRUG Active Rash Univers INGREDI 4-11 ity of 00:00: [address] [place] [address] No Known DA Active U [facility] Allergie 3-24 [place] s 00:00: d 00 Medical [place] SHRIMP DRUG Active Anaphylaxis Unive rs INGREDI 9- ity of 00:00: [address] Shrimp Propensi Active Anaphylaxis 2015- Pt Uni vers ty to 03-30 reports ity of adverse 00:00: it is [place] reaction 00 only raw Medica l s shrimp. Branch Pt reports he can eat cooked shrimp. Social History Social Habit Start Date Stop Date Quantity Comments Source History of tobacco 2002-10-17 Smoker Univer sity of use 00:00:00 [facility] Exposure to 2021-12-10 2021-12-20 Not sure [facility] SARS-CoV-2 (event) 00:00:00 23:45:00 [facility] Alcohol intake 2020-02-06 2020-02-06 Current University of 00:00:00 00:00:00 non-drinker of [facility] alcohol [place] (finding) Tobacco use and 2017-10-17 2017-10-17 Never used Universit y of exposure 00:00:00 00:00:00 [facility] Cigarettes smoked 2017-10-17 2017-10-17 Univers ity of current (pack per 00:00:00 00:00:00 [facility] ) - Reported Branch Cigarette 2017-10-17 2017-10-17 University of pack-years 00:00:00 00:00:00 [facility] Sex Assigned At [birth year] Universit y of 00:00:00 00:00:00 [facility] Smoking Status Start Date Stop Date Source Heavy tobacco smoker [facility] (LUF/ELISABETH/SA) Current every day smoker 2017-10-17 00:00:00 Uni versity of [facility] Medications Ordered Filled Start Stop Current Ordering Indication Dosage Frequency Signature Comments Components Source Medication Medication Date Date Medication? Clinician (SIG) Name Name HYDROcodone 2021- Yes 1{tbl} 1 tablet, Univers -acetaminop 12-21-15 Oral, ONCE i ty of hen (NORCO) 07:45: 19:44 NOW, 1 [place] as 10-325 mg 00 :00 dose, On Medica l tablet 1 Sun Branch tablet 12/21/21 at 0245, Routine ketorolac 2021- No 15mg 15 mg, Unive rs (TORADOL) 12-21 06-15 Slow IV ity of injection 06:30: 05:55 Push, [place] 15 mg 00 :00 ONCE, 1 Medical dose, On Branch 12/21/21 at 0130, [place] montelukast 2021- Yes [id number] 10mg Take 1 Univers (SINGULAIR) 12-21-16 tablet by it y of 10 mg 00:00: 04:59 mouth [place] tablet 00 :00 daily for Medical 30 days. Branch dicyclomine No 20mg 20 mg, Uni vers (BENTYL) 09-3025 Oral, ity of tablet 20 06:15: 05:16 ONCE, 1 [place] mg 00 :00 dose, On Medical Fri Branch 09/30/21 at 0115, [place] famotidine No 20mg 20 mg, Univ ers (PEPCID [...] Medical Infusion, Branch ONCE, 1 dose, On Sun09/30/21 at 0115, STAT iopamidol 2021- No [id number] 110mL 110 mL, Univers (ISOVUE 09-30 Intravenou ity o f 370-500 mL) 05:56: 05:57 s, ONCE, 1 [place] injection 00 :00 dose, On Medica l 110 mL Fri Branch 09/30/21 at 0115, Routine ondansetron Yes [id number] 4mg Take 1 Univers 4 mg 3-25 tablet by ity of disintegrat 00:00: mouth [place] ing tablet 00 every 8 Medica l (eight) Branch hours as needed for Nausea and Vomiting (N/V). ondansetron 2021-0 Yes [id number] 4mg Take 1 Univers 4 mg 3-25 tablet by ity of disintegrat 00:00: mouth [place] ing tablet 00 every 8 Medica l (eight) Branch hours as needed for Nausea and Vomiting (N/V). ondansetron 2021-0 Yes [id number] 4mg Take 1 Univers 4 mg 3-25 tablet by ity of disintegrat 00:00: mouth [place] ing tablet 00 every 8 Medica l (eight) Branch hours as needed for Nausea and Vomiting (N/V). levocetiriz 2021-0 202- No [id number] 5mg Take 1 Univers ine (XYZAL) 3-25 04-19 tablet by it y of 5 mg tablet 00:00: 04:59 [place] 00 :00 every Medical evening Branch for 24 days. ondansetron 2019-0 2019- No 4mg 4 mg, Slow Univers (ZOFRAN 02-15 IV Push, ity of (PF)) 04:37: 04:37 ONCE, 1 [place] injection 4 00 :00 dose, Sun Med ical mg 02/15/20 at Branch 2345, [place] ketorolac 2019-0 2019- No 30mg 30 mg, Unive rs (TORADOL) 02-15 Slow IV ity of injection 03:15: 02:09 Push, [place] 30 mg 00 :00 ONCE, 1 Medical dose, Sun Branch 02/15/20 at 2215, [place]
Fa culty member approving Restricted medication : EMERGENCY ROOM, iohexol 2019-0 2020- No 120mL 120 mL, Unive rs (OMNIPAQUE 02-15 Intravenou it y of 350 03:00: 03:00 s, ONCE, 1 [place] BULK-150 00 :00 dose, Sun Medica l mL) 02/15/20 at Branch injection 2200, 120 mL Routine hydrocortis 2019-0 Yes [id number] Insert Univers one 8-10 into ity of (ANUSOL-HC) 00:00: rectum 2 [place] 2.5 % 00 (two) Medical rectal times Branch cream daily. hydrocortis 2019-0 Yes [id number] Insert Univers one 8-10 into ity of (ANUSOL-HC) 00:00: rectum 2 [place] 2.5 % 00 (two) Medical rectal times Branch cream daily. hydrocortis 2020-0 Yes [id number] Insert Univers one 8-10 into ity of (ANUSOL-HC) 00:00: rectum 2 [place] 2.5 % 00 (two) Medical rectal times Branch cream daily. hydrocortis 2020-0 Yes [id number] Insert Univers one 8-10 into ity of (ANUSOL-HC) 00:00: rectum 2 [place] 2.5 % 00 (two) Medical rectal times Branch cream daily. cephALEXin 2019- 2020- No [id number] 500mg Take 1 Univers (KEFLEX) 02-05 08-08 capsule by ity of 500 mg 00:00: 04:59 mouth 4 [place] capsule 00 :00 (four) Medical times Branch daily for 7 days. benzonatate 2019-0 2020- No [id number] 100mg Take 1 Univers (TESSALON 01-18 07-24 capsule by ity of PERLES) 100 00:00: 04:59 mouth 3 [place] mg capsule 00 :00 (three) Medica l times Branch daily as needed for Cough for up to 10 days. doxycycline 2019-0 2020- No [id number] 100mg Take 1 Univers hyclate 100 01-18 07-21 tablet by it y of mg tablet 00:00: 04:59 mouth 2 [place] 00 :00 (two) Medical times Branch daily for 7 days. ondansetron 2020- No 4mg 4 mg, Slow Univers (ZOFRAN 09-1914 IV Push, ity of (PF)) 02:15: 01:15 ONCE, 1 [place] injection 4 00 :00 dose, Fri Med ical mg 09/19/19 at Branch 2114, [place] morpHINE 2019- 2020- No 4mg 4 mg, Slow Un [place] injection 4 09-1914 IV Push, ity of mg 02:15: 01:15 ONCE, 1 [place] 00 :00 dose, Fri Medical 09/19/19 at Branch 2114, STAT dicyclomine 2019-0 2020- No 20mg 20 mg, Uni vers (BENTYL) 09-19-14 Intramuscu ity of injection 02:15: 01:14 [place], ONCE [place] 20 mg 00 :00 NOW, 1 Medical dose, Fri Branch 09/19/19 at 2115, Routine NaCl 0.9% 2019-2019- No 1000mL at 999 Uni vers (NS) bolus 09-18 03-14 mL/hr, ity of infusion 23:00: 01:26 1,000 mL, [place] as 1,000 mL 00 :00 IV Medical Infusion, [place] ONCE, 1 dose, 09/19/19 at 1800, [place] docusate 2019-0 2019- No [id number] 100mg Take 1 U nivers 100 mg 09-18 capsule by ity of capsule 00:00: 04:59 mouth [place] 00 :00 daily for Medical 7 days. [place] dicyclomine 2019-0 2020- No [id number] 20mg Take 1 Univers 20 mg 09-18 tablet by ity of tablet 00:00: 04:59 mouth 4 [place] 00 :00 (four) Medical times [place] daily for 7 days. polyethlene 2019-0 2019- No [id number] 17g Take 17 g Univers glycol 09-1818 by mouth ity of powder 00:00: 04:59 daily for [place] packet 00 :00 4 days. Medical Branch iohexol 2019-0 2019- No 120mL 120 mL, Unive rs (OMNIPAQUE 1-20 -20 Intravenou it y of 350 03:00: 02:41 s, ONCE, 1 [place] BULK-100 00 :00 dose, Sun Medica l mL) 07/27/19 at [place] injection 2100, 120 mL Routine dicyclomine 2019-0 Yes 10mg 10 mg, Univ ers (BENTYL) 1-20 Oral, QID, ity o f capsule 10 02:00: First dose [place] mg 00 on [place] Medical 07/27/19 at Branch 2000, Until Discontinu ed, Routine dicyclomine 2020-0 Yes [id number] 10mg Take 1 Univers (BENTYL) 10 -19 capsule by it y of mg capsule 00:00: mouth [place] 00 every 8 Medical (eight) Branch hours as needed for Abdominal pain. ondansetron 2020-0 Yes [id number] 4mg Take 1 Univers 4 mg 1-19 tablet by ity of disintegrat 00:00: mouth [place] ing tablet 00 every 8 Medica l (eight) Branch hours as needed for Nausea and Vomiting (N/V). methylPREDN 2020-0 Yes [id number] Take by Univers ISolone 1-19 mouth ity of (MEDROL, 00:00: SEE-INSTRU [place] as JENNY,) 4 mg 00 CTIONS. Medica l tablets follow Branch package directions dicyclomine 2020-0 Yes [id number] 10mg Take 1 Univers (BENTYL) 10 1-19 capsule by it y of mg capsule 00:00: mouth [place] 00 every 8 Medical (eight) Branch hours as needed for Abdominal pain. ondansetron 2020-0 Yes [id number] 4mg Take 1 Univers 4 mg 1-19 tablet by ity of disintegrat 00:00: mouth [place] ing tablet 00 every 8 Medica l (eight) Branch hours as needed for Nausea and Vomiting (N/V). methylPREDN 2020-0 Yes [id number] Take by Univers ISolone 1-19 mouth ity of (MEDROL, 00:00: SEE-INSTRU [place] JENNY,) 4 mg 00 CTIONS. Medica l tablets follow Branch package directions dicyclomine 2020-0 Yes [id number] 10mg Take 1 Univers (BENTYL) 10 1-19 capsule by it y of mg capsule 00:00: mouth [place] 00 every 8 Medical (eight) Branch hours as needed for Abdominal pain. ondansetron 2020-0 Yes [id number] 4mg Take 1 Univers 4 mg 1-19 tablet by ity of disintegrat 00:00: mouth [place] ing tablet 00 every 8 Medica l (eight) Branch hours as needed for Nausea and Vomiting (N/V). methylPREDN 2020-0 Yes [id number] Take by Univers ISolone 1-19 mouth ity of (MEDROL, 00:00: SEE-INSTRU [place] as JENNY,) 4 mg 00 CTIONS. Medica l tablets follow Branch package directions dicyclomine 2020-0 Yes [id number] 10mg Take 1 Univers (BENTYL) 10 1-19 capsule by it y of mg capsule 00:00: mouth [place] 00 every 8 Medical (eight) Branch hours as needed for Abdominal pain. ondansetron 2020-0 Yes [id number] 4mg Take 1 Univers 4 mg 1-19 tablet by ity of disintegrat 00:00: mouth [place] ing tablet 00 every 8 Medica l (eight) Branch hours as needed for Nausea and Vomiting (N/V). methylPREDN 2020-0 Yes [id number] Take by Univers ISolone 1-19 mouth ity of (MEDROL, 00:00: SEE-INSTRU [place] as JENNY,) 4 mg 00 CTIONS. Medica l tablets follow Branch package directions dicyclomine 2020-0 Yes [id number] 10mg Take 1 Univers (BENTYL) 10 1-19 capsule by it y of mg capsule 00:00: mouth [place] 00 every 8 Medical (eight) Branch hours as needed for Abdominal pain. ondansetron 2020-0 Yes [id number] 4mg Take 1 Univers 4 mg 1-19 tablet by ity of disintegrat 00:00: mouth [place] ing tablet 00 every 8 Medica l (eight) Branch hours as needed for Nausea and Vomiting (N/V). methylPREDN 2020-0 Yes [id number] Take by Univers ISolone 1-19 mouth ity of (MEDROL, 00:00: SEE-INSTRU [place] JENNY,) 4 mg 00 CTIONS. Medica l tablets follow Branch package directions sucralfate 2020-0 Yes [id number] 1g Take 1 U nivers 1 gram 1-19 tablet by ity of tablet 00:00: mouth [place] 00 before Medical meals and Branch at bedtime. dicyclomine 2020-0 Yes [id number] 10mg Take 1 Univers (BENTYL) 10 1-19 capsule by it y of mg capsule 00:00: mouth [place] 00 every 8 Medical (eight) Branch hours as needed for Abdominal pain. ondansetron 2020-0 Yes [id number] 4mg Take 1 Univers 4 mg 1-19 tablet by ity of disintegrat 00:00: mouth [place] ing tablet 00 every 8 Medica l (eight) Branch hours as needed for Nausea and Vomiting (N/V). methylPREDN 2020-0 Yes [id number] Take by Univers ISolone 1-19 mouth ity of (MEDROL, 00:00: SEE-INSTRU [place] as JENNY,) 4 mg 00 CTIONS. Medica l tablets follow Branch package directions dicyclomine 2020-0 Yes [id number] 10mg Take 1 Univers (BENTYL) 10 1-19 capsule by it y of mg capsule 00:00: mouth [place] 00 every 8 Medical (eight) Branch hours as needed for Abdominal pain. ondansetron 2020-0 Yes [id number] 4mg Take 1 Univers 4 mg 1-19 tablet by ity of disintegrat 00:00: mouth [place] ing tablet 00 every 8 Medica l (eight) Branch hours as needed for Nausea and Vomiting (N/V). methylPREDN 2020-0 Yes [id number] Take by Univers ISolone 1-19 mouth ity of (MEDROL, 00:00: SEE-INSTRU [place] as JENNY,) 4 mg 00 CTIONS. Medica l tablets follow Branch package directions dicyclomine 2020-0 Yes [id number] 10mg Take 1 Univers (BENTYL) 10 1-19 capsule by it y of mg capsule 00:00: mouth [place] 00 every 8 Medical (eight) Branch hours as needed for Abdominal pain. ondansetron 2020-0 Yes [id number] 4mg Take 1 Univers 4 mg 1-19 tablet by ity of disintegrat 00:00: mouth [place] ing tablet 00 every 8 Medica l (eight) Branch hours as needed for Nausea and Vomiting (N/V). methylPREDN 2020-0 Yes [id number] Take by Univers ISolone 1-19 mouth ity of (MEDROL, 00:00: SEE-INSTRU [place] as JENNY,) 4 mg 00 CTIONS. Medica l tablets follow Branch package directions dicyclomine 2020-0 Yes [id number] 10mg Take 1 Univers (BENTYL) 10 1-19 capsule by it y of mg capsule 00:00: mouth [place] 00 every 8 Medical (eight) Branch hours as needed for Abdominal pain. ondansetron 2020-0 Yes [id number] 4mg Take 1 Univers 4 mg 1-19 tablet by ity of disintegrat 00:00: mouth [place] ing tablet 00 every 8 Medica l (eight) Branch hours as needed for Nausea and Vomiting (N/V). methylPREDN 2020-0 Yes [id number] Take by Univers ISolone 1-19 mouth ity of (MEDROL, 00:00: SEE-INSTRU [place] as JENNY,) 4 mg 00 CTIONS. Medica l tablets follow Branch package directions sucralfate 2020-0 Yes [id number] 1g Take 1 U nivers 1 gram 1-19 tablet by ity of tablet 00:00: mouth [place] 00 before Medical meals and Branch at bedtime. dicyclomine 2020-0 Yes [id number] 10mg Take 1 Univers (BENTYL) 10 1-19 capsule by it y of mg capsule 00:00: mouth [place] 00 every 8 Medical (eight) Branch hours as needed for Abdominal pain. ondansetron 2020-0 Yes [id number] 4mg Take 1 Univers 4 mg 1-19 tablet by ity of disintegrat 00:00: mouth [place] ing tablet 00 every 8 Medica l (eight) Branch hours as needed for Nausea and Vomiting (N/V). methylPREDN 2020-0 Yes [id number] Take by Univers ISolone 1-19 mouth ity of (MEDROL, 00:00: SEE-INSTRU [place] as JENNY,) 4 mg 00 CTIONS. Medica l tablets follow Branch package directions sucralfate 2020-0 Yes [id number] 1g Take 1 U nivers 1 gram 1-19 tablet by ity of tablet 00:00: mouth [place] 00 before Medical meals and Branch at bedtime. dicyclomine 2020-0 Yes [id number] 10mg Take 1 Univers (BENTYL) 10 1-19 capsule by it y of mg capsule 00:00: mouth [place] 00 every 8 Medical (eight) Branch hours as needed for Abdominal pain. ondansetron 2020-0 Yes [id number] 4mg Take 1 Univers 4 mg 1-19 tablet by ity of disintegrat 00:00: mouth [place] ing tablet 00 every 8 Medica l (eight) Branch hours as needed for Nausea and Vomiting (N/V). methylPREDN 2020-0 Yes [id number] Take by Univers ISolone 1-19 mouth ity of (MEDROL, 00:00: SEE-INSTRU [place] as JENNY,) 4 mg 00 CTIONS. Medica l tablets follow Branch package directions sucralfate 2020-0 Yes [id number] 1g Take 1 U nivers 1 gram 1-19 tablet by ity of tablet 00:00: mouth [place] 00 before Medical meals and Branch at bedtime. dicyclomine 2020-0 Yes [id number] 10mg Take 1 Univers (BENTYL) 10 1-19 capsule by it y of mg capsule 00:00: mouth [place] 00 every 8 Medical (eight) Branch hours as needed for Abdominal pain. ondansetron 2020-0 Yes [id number] 4mg Take 1 Univers 4 mg 1-19 tablet by ity of disintegrat 00:00: mouth [place] ing tablet 00 every 8 Medica l (eight) Branch hours as needed for Nausea and Vomiting (N/V). methylPREDN Yes [id number] Take by Univers ISolone 1-19 mouth ity of (MEDROL, 00:00: SEE-INSTRU [place] as JENNY,) 4 mg 00 CTIONS. Medica l tablets follow Branch package directions sucralfate 2020- No [id number] 1g Take 1 Univers 1 gram - 07-13 tablet by ity of tablet 00:00: 00:00 mouth [place] 00 :00 before Medical meals and Branch at bedtime. omeprazole 2020- No [id number] 20mg Take 1 Univers 20 mg 07-27-19 capsule by ity of capsule 00:00: 05:59 mouth [place] 00 :00 daily for Medical 30 days. Branch metoclopram 2018-07 Yes [id number] 10mg Take 1 Univers nba HCl 10 1-18 tablet by ity of mg tablet 00:00: mouth [place] 00 every 6 Medical (six) Branch hours as needed for Nausea and Vomiting (N/V). metoclopram 2018-07 Yes [id number] 10mg Take 1 Univers nba HCl 10 1-18 tablet by ity of mg tablet 00:00: mouth [place] 00 every 6 Medical (six) Branch hours as needed for Nausea and Vomiting (N/V). metoclopram 2018-07 Yes [id number] 10mg Take 1 Univers nba HCl 10 1-18 tablet by ity of mg tablet 00:00: mouth [place] 00 every 6 Medical (six) Branch hours as needed for Nausea and Vomiting (N/V). metoclopram 2018-07 Yes [id number] 10mg Take 1 Univers nba HCl 10 1-18 tablet by ity of mg tablet 00:00: mouth [place] 00 every 6 Medical (six) Branch hours as needed for Nausea and Vomiting (N/V). metoclopram 2018-07 Yes [id number] 10mg Take 1 Univers nba HCl 10 1-18 tablet by ity of mg tablet 00:00: mouth [place] 00 every 6 Medical (six) Branch hours as needed for Nausea and Vomiting (N/V). metoclopram 2018-07 Yes [id number] 10mg Take 1 Univers bna HCl 10 1-18 tablet by ity of mg tablet 00:00: mouth [place] 00 every 6 Medical (six) Branch hours as needed for Nausea and Vomiting (N/V). metoclopram 2018-07 Yes [id number] 10mg Take 1 Univers nba HCl 10 1-18 tablet by ity of mg tablet 00:00: mouth [place] 00 every 6 Medical (six) Branch hours as needed for Nausea and Vomiting (N/V). metoclopram 2018-07 Yes [id number] 10mg Take 1 Univers nba HCl 10 1-18 tablet by ity of mg tablet 00:00: mouth [place] 00 every 6 Medical (six) Branch hours as needed for Nausea and Vomiting (N/V). metoclopram 2018-07 Yes [id number] 10mg Take 1 Univers nba HCl 10 1-18 tablet by ity of mg tablet 00:00: mouth [place] 00 every 6 Medical (six) Branch hours as needed for Nausea and Vomiting (N/V). metoclopram 2018-07 Yes [id number] 10mg Take 1 Univers nba HCl 10 1-18 tablet by ity of mg tablet 00:00: mouth [place] 00 every 6 Medical (six) Branch hours as needed for Nausea and Vomiting (N/V). metoclopram 2018-07 Yes [id number] 10mg Take 1 Univers nba HCl 10 1-18 tablet by ity of mg tablet 00:00: mouth [place] 00 every 6 Medical (six) Branch hours as needed for Nausea and Vomiting (N/V). metoclopram 2018-07 Yes [id number] 10mg Take 1 Univers nba HCl 10 1-18 tablet by ity of mg tablet 00:00: mouth [place] 00 every 6 Medical (six) Branch hours as needed for Nausea and Vomiting (N/V). dicyclomine 2018-07 2020- No [id number] 20mg Take 1 Univers (BENTYL) 20 1-18 [...] ity o f tablet 00:00: mouth 3 [place] 00 (three) Medical times Branch daily. varenicline Yes Take one Un lawrence [...] Nystatin Nystatin No 1applic TID [facility] [id number] [facility] UNT/ML / UNT/ML / Mem[facility] Triamcinolo Triamcinolo l ne ne (LUF/LI Acetonide 1 Acetonide 1 V /SA) MG/ML MG/ML Topical Topical Cream Cream Vital Signs Vital Name Observation Time Observation Value Comments Source Systolic blood 2021-12-21 07:00:00 129 mm[Hg] [facility] Diastolic blood 2021-12-21 07:00:00 78 mm[Hg] [facility] Heart rate 2021-12-21 07:00:00 71 /min [facility] Respiratory rate 2021-12-21 07:00:00 22 /min [facility] Oxygen saturation in 2021-12-21 07:00:00 96 /min [facility] Arterial blood by [facility] Pulse oximetry [place] Body temperature 2021-12-21 04:49:00 36.83 [place] [facility] Body height 2021-12-21 04:49:00 162.6 cm [facility] Body weight 2021-12-21 04:49:00 77.111 kg [facility] BMI 2021-12-21 04:49:00 29.18 kg/m2 [facility] Systolic blood 2021-09-30 06:00:00 118 mm[Hg] Univer sity of pressure [place] [facility] Diastolic blood 2021-09-30 06:00:00 78 mm[Hg] Unive rsity of pressure [place] [facility] Heart rate 2021-09-30 06:00:00 89 /min Universi ty of [place] [facility] Respiratory rate 2021-09-30 06:00:00 18 /min Univ ersity of [place] [facility] Oxygen saturation in 2021-09-30 06:00:00 93 /min University of Arterial blood by [facility] Pulse oximetry Branch Body temperature 2021-09-30 05:06:00 36.67 Pennie Univ ersity of [place] [facility] Body height 2021-09-30 05:06:00 162.6 cm Universi ty of [place] [facility] Body weight 2021-09-30 05:06:00 78.019 kg Universi ty of [place] [facility] BMI 2021-09-30 05:06:00 29.52 kg/m2 Universi ty of [place] [facility] Systolic blood 2020-02-16 05:15:00 137 mm[Hg] Univer sity of pressure [place] [facility] Diastolic blood 2020-02-16 05:15:00 93 mm[Hg] Unive rsity of pressure [place] [facility] Heart rate 2020-02-16 05:15:00 79 /min Universi ty of [place] [facility] Respiratory rate 2020-02-16 05:15:00 18 /min Univ ersity of [place] [facility] Oxygen saturation in 2020-02-16 05:15:00 99 /min University of Arterial blood by [facility] Pulse oximetry Branch Body temperature 2020-02-16 01:23:00 37.28 Penn[place] Univ ersity of [place] [facility] Body weight 2020-02-16 01:23:00 78.019 kg Universi ty of [place] [facility] BMI 2020-02-16 01:23:00 29.52 kg/m2 Universi ty of [place] [facility] Systolic blood 2020-02-06 22:28:00 129 mm[Hg] Univer sity of pressure [place] [facility] Diastolic blood 2020-02-06 22:28:00 93 mm[Hg] Unive rsity of pressure [place] [facility] Heart rate 2020-02-06 22:28:00 100 /min Universi ty of [place] [facility] Body temperature 2020-02-06 22:28:00 36.72 [place] Univ ersity of [place] [facility] Respiratory rate 2020-02-06 22:28:00 18 /min Univ ersity of [place] [facility] Body weight 2020-02-06 22:28:00 79.379 kg Universi ty of [place] [facility] BMI 2020-02-06 22:28:00 30.04 kg/m2 Universi ty of [place] [facility] Oxygen saturation in 2020-02-06 22:28:00 98 /min University of Arterial blood by [facility] tami Pulse oximetry Branch Systolic blood 2020-01-19 18:07:00 125 mm[Hg] Univer sity of pressure [place] [facility] Diastolic blood 2020-01-19 18:07:00 83 mm[Hg] Unive rsity of pressure [place] [facility] Heart rate 2020-01-19 18:07:00 83 /min Universi ty of [place] [facility] Body temperature 2020-01-19 18:07:00 37.11 [place] Univ ersity of [place] [facility] Respiratory rate 2020-01-19 18:07:00 17 /min Univ ersity of [place] [facility] Body height 2020-01-19 18:07:00 162.6 cm [facility]i ty [facility] [place] [facility] Body weight 2020-01-19 18:07:00 79.379 kg Universi ty [facility] [place] [facility] BMI 2020-01-19 18:07:00 30.04 kg/m2 Universi ty [facility] [place] [facility] Oxygen saturation in 2020-01-19 18:07:00 98 /min University of Arterial blood by [facility] Pulse oximetry Branch Systolic blood 2019-09-20 00:00:00 124 mm[Hg] Univer sity of pressure [place] [facility] Diastolic blood 2019-09-20 00:00:00 75 mm[Hg] Unive rsity of pressure [place] [facility] Heart rate 2019-09-20 00:00:00 74 /min Universi ty [facility] [place] [facility] Respiratory rate 2019-09-20 00:00:00 16 /min Univ ersity of [place] [facility] Oxygen saturation in 2019-09-20 00:00:00 95 /min University of Arterial blood by [facility] tami Pulse oximetry Branch Body temperature 2019-09-19 22:27:00 36.56 Pennie Univ ersity [facility] [place] [facility] Body weight 2019-09-19 22:27:00 81.647 kg [facility] BMI 2019-09-19 22:27:00 30.90 kg/m2 [facility] Systolic blood 2019-07-28 03:49:00 123 mm[Hg] Univer sity of pressure [facility] Diastolic blood 2019-07-28 03:49:00 90 mm[Hg] Unive rsity of pressure [facility] Heart rate 2019-07-28 03:49:00 72 /min [facility] Body temperature 2019-07-28 03:49:00 36.56 [facility] Respiratory rate 2019-07-28 03:49:00 18 /min [facility] Oxygen saturation in 2019-07-28 03:49:00 95 /min [facility] Arterial blood by [facility] Pulse oximetry [place] Body height 2019-07-28 00:55:00 162.6 cm [facility] Body weight 2019-07-28 00:55:00 81.647 kg [facility] BMI 2019-07-28 00:55:00 30.90 kg/m2 [facility] Respiratory Rate 2017-06-12 19:50:00 18 /min [facility] (LUF/ELISABETH/SA) O2% BldC Oximetry 2017-06-12 19:50:00 98 % [facility] (LUF/ELISABETH/SA) BP Systolic 2017-06-12 19:50:00 128 mm[Hg] [facility] (LUF/ELISABETH/SA) BP Diastolic 2017-06-12 19:50:00 68 mm[Hg] [facility] (LUF/ELISABETH/SA) Body Temperature 2017-06-12 17:02:00 98 F [facility] (LUF/ELISABETH/SA) Height 2017-06-12 17:02:00 65 in [facility] (LUF/ELISABETH/SA) Weight Measured 2017-06-12 17:02:00 174.98 lbs [facility] (LUF/ELISABETH/SA) BMI (Body Mass 2017-06-12 17:02:[address] [facility]) [facility] (LUF/ELISABETH/SA) Procedures Procedure Date / Time Performing Clinician Source Performed URINALYSIS 2021-12-21 05:50:00 Ronald Shields o f [facility] LIPASE 2021-12-21 05:41:00 Ronald Shields [facility] COMP. METABOLIC PANEL 2021-12-21 05:41:00 Ronald Shields [facility] ([id number]) Medical Branch CBC WITH DIFF 2021-12-21 05:41:00 Ronald Shields [facility] XR CHEST 2 VW 2021-12-21 05:28:06 Ronald Shields [facility] CONSENT/REFUSAL FOR 2021-12-21 04:31:14 [facility] Name Medical Branch XR CHEST 2 VW 2021-09-30 06:06:29 Garth Bautista [facility] CT ABDOMEN PELVIS W 2021-09-30 06:04:14 Garth Bautista [facility] Medical Branch COVID-19 (ID NOW RAPID 2021-09-30 05:20:00 Garth Bautista [facility] TESTING) Medical Branch RAPID INFLUENZA A/B 2021-09-30 05:19:00 Garth Bautista [facility] URINALYSIS 2021-09-30 05:18:00 Garth Bautista [facility] LIPASE 2021-09-30 05:14:00 Garth Bautista [facility] TROPONIN I 2021-09-30 05:14:00 Garth Bautista [facility] COMP. METABOLIC PANEL 2021-09-30 05:14:00 Garth Bautista [facility] ([id number]) Medical Branch CBC WITH DIFF 2021-09-30 05:14:00 Garth Bautista [facility] NOTICE OF PRIVACY 2021-09-30 04:58:38 Doctor Unassigned, No [facility] PRACTICES Name Medical Branch CONSENT/REFUSAL FOR 2021-09-30 04:58:23 [facility] Unassigned, [facility] Name [facility] Branch CT ABDOMEN PELVIS W 2020-02-16 02:52:29 Jamaal Trotter [facility] CONTRAST Medical Branch LIPASE 2020-02-16 02:01:00 Jamaal Trotter [facility] HEPATIC FUNCTION PANEL 2020-02-16 02:01:00 Jamaal Trotter [facility] ([id number]) (ALB,T.PRO,BILI Medical Branch T,BU/BC,ALT,AST,ALK PHOS) BASIC METABOLIC PANEL 2020-02-16 02:01:00 Jamaal Trotter [facility] (NA, K, CL, CO2, Medical Branch GLUCOSE, BUN, CREATININE, CA) CBC WITH DIFF 2020-02-16 02:01:00 Jamaal Trotter [facility] URINALYSIS 2020-02-16 02:01:00 Jamaal Trotter [facility] CONSENT/REFUSAL FOR 2020-02-06 22:17:29 Doctor Unassigned, No [facility] Medical [place] XR KUB 2019-09-20 00:34:59 Swati Limon [facility] COMP. METABOLIC PANEL 2019-09-20 00:13:00 [facility] ([id number] Branch CBC WITH DIFFERENTIAL 2019-09-20 00:13:00 [facility] URINALYSIS 2019-09-20 00:13:00 Swati Limon [facility] NOTICE OF PRIVACY 2019-09-19 22:17:17 Doctor Unassigned, No Univ [facility] PRACTICES Name Medical Branch CONSENT/REFUSAL FOR 2019-09-19 22:17:05 Doctor Unassigned, No [facility] Name Medical Branch CT ABDOMEN PELVIS W 2019-07-28 02:46:48 Sabi Berman [facility] CONTRAST Medical Branch LIPASE 2019-07-28 01:34:00 Sabi Berman [facility] COMP. METABOLIC PANEL 2019-07-28 01:34:00 Sabi Berman [facility] ([id number]) Medical Branch CBC WITH DIFFERENTIAL 2019-07-28 01:34:00 Sabi Berman [facility] Medical [place] CONSENT/REFUSAL FOR 2019-07-28 00:45:36 Doctor Unassigned, No [facility] [place] [facility] Name Medical Branch Encounters Start End Encounter Admission Attending Care Care Encounter Source Date/Time Date/Time Type Type Clinicians Facility Department ID 2021-05-06 Emergency [facility] [id number] Univers 11:24:52 ity of [facility] 2021-05-06 Emergency [facility] [id number] Univers 10:10:[address] [facility] 2021-12-20 2021-12-21 Emergency X ALYSON, [facility] ERT [id number] Univers 23:54:00 02:13:[address] [facility] 2021-12-20 2021-12-21 Emergency [facility] [id number] Univers 23:54:00 02:13:00 Ronald WEST [id number] ity of [place] [id number] [facility] [phone] [facility] 084 [place] 2021-11-16 2021-11-[address] [facility] [id number] Univers 00:00:00 00:00:00 Xiang SPECIALTY [id number] ity of [facility] [id number] [facility] AT [phone] In casiesterling OROURKE 2 [facility] 2021-11-15 2021-11-15 Outpatient R [facility] [id number] Univers 09:00:00 09:00:00 [id number] ity of [facility] 2021-11-15 2021-11-15 Outpatient R [facility] [id number] Univers 09:00:00 09:00:00 ity of [facility] 2021-10-26 2021-10-26 Inpatient EL Aguda, HCAPM RADI [id number] [facility] 11:00:00 11:00:00 Rosalva [id number] [facility] [place] 2021-10-18 2021-10-18 Outpatient Aguda, HCAPM HCAPM [id number] [facility] 08:05:00 08:05:00 Rosalva [id number] [facility] [place] 2021-09-30 2021-09-30 [facility] [id number] Univers 00:02:00 01:41:00 GARTH ity of [facility] 2021-09-30 2021-09-30 Emergency Lily, [facility] [id number] Univers 00:02:00 01:41:00 Garth WEST [id number] i ty [facility] 4.2.7.2.686 [facility] [phone] [address] 2021-06-22 2021-06-22 Outpatient R [facility] [id number] Univers 20:15:00 20:15:00 [id number] ity of [facility] 2021-06-22 2021-06-22 Outpatient R UNKNOWN, [facility] [id number] Univers 20:15:00 20:15:[address] [facility] 2020-02-15 2020-02-16 Emergency Jamaal Trotter [facility] [id number] Univers 20:25:00 00:23:00 T Kelsi [id number] i ty of [place] [id number] [facility] [id number] [address] 2020-02-06 2020-02-06 Emergency Christine, [facility] [id number] Univers 17:30:03 18:06:00 Jamaal Kelsi [id number] i ty of [place] [id number] [facility] [phone] [address] 2020-02-06 2020-02-06 Orders Doctor MAKAYLA [id number] Univers 00:00:00 00:00:00 Only Unassigned, CHARLA [id number] ity of [place] [facility] 4.2.7.2.686 Kristian as [phone] [place] [address] Branch 2020-02-03 2020-02-03 Telephone Pob1, Acute [facility] [id number] Univers 00:00:00 00:00:00 [facility] [id number] ity of [place] 4.2.7.2.686 Kristian as Professio [phone] [address] [facility] 2020-01-19 2020-01-19 Urgent Pob1, Acute Care Clinic [facility] 1. [id number] Univers 13:01:51 13:40:36 Care Gregoria Madsen [facility] [id number] ity of [place] 4.2.7.2.686 [facility] [phone] [address] 2020-01-19 2020-01-19 Outpatient R [facility] [id number] Univers 13:00:00 13:00:00 [id number] ity of [facility] 2020-01-19 2020-01-19 Outpatient R [facility] [id number] Univers 13:00:00 13:00:00 ity of [facility] 2020-01-19 2020-01-19 Letter Doctor MAKAYLA 1.2.840.114 [id number] Univers 00:00:00 00:00:00 (Out) Unassigned, CHARLA [id number] ity of [facility] [id number] Kristian as [phone] [address] 2020-01-09 2020-01-09 Outpatient R [facility] [id number] Univers 09:40:00 09:40:00 ity of [facility] 2020-01-09 2020-01-09 Outpatient R [facility] [id number] Univers 09:40:00 09:40:00 ity of [facility] 2019-09-19 2019-09-19 Emergency X BRAXTON [facility] ERT [id number] Univers 18:38:25 20:38:00 ABRAHANO ity of [facility] 2019-09-19 2019-09-19 Emergency [facility] 1.2.840.114 [id number] Univers 18:38:25 20:38:00 Swati [place] [id number] ity of [place] [id number] [facility] [phone] [address] 2019-09-19 2019-09-19 Orders Doctor MAKAYLA 1.2.840.114 [id number] Univers 00:00:00 00:00:00 Only Unassigned, CHARLA [id number] ity of [place] [facility] 4.2.7.2.686 Kristian [phone] [facility] 009 Branch 2019-07-27 2019-07-27 Emergency Singer WADANIEL [id number] Univers 18:49:37 21:53:00 Sabi [place] [id number] i ty of [place] [id number] [facility] [phone] [facility] 084 Branch 2017-06-12 2017-06-12 STRAIN 1 RENNER, [facility] PATEL [facility] PATEL [id number] 16:57:00 19:55:00 [facility] FASCIA , [address] [facility] ([facility] [address], PATEL V/SA) [place] [address] Results Test Description Test Time Test Comments Results Result Comments Source COMP. METABOLIC PANEL ([id number]) 2021-12-21 06:14:33 Test Item Value Reference Range Interpretation Comme nts NA (test code = 1687313849) 136 mmol/L 135-145 K (test code = 4207174687) 4.3 mmol/L 3.5-5.0 CL (test code = 3220122955) 104 mmol/L 98-108 CO2 TOTAL (test code = 23 mmol/L 23-31 6532665973) AGAP (test code = 4674364095) 2-16 BUN (test code = 9121426578) 18 mg/dL 7-23 GLUCOSE (test code = 9211044792) 103 mg/dL 70-110 CREATININE (test code = 1.08 mg/dL 0.60-1.25 1149006215) TOTAL BILI (test code = 0.5 mg/dL 0.1-1.0 9161159514) CALCIUM (test code = 2425545824) 9.5 mg/dL 8.6-10.6 T PROTEIN (test code = 7.2 g/dL 6.3-8.2 1703395849) ALBUMIN (test code = 0492819631) 4.8 g/dL 3.5-5.0 ALK PHOS (test code = 2430809330) 77 U/L 34-122 ALTv (test code = 1742-6) 29 U/L 5-50 AST(SGOT) (test code = 23 U/L 13-40 5288232246) eGFR (test code = 9455264639) mL/min/1.73m2 [place] (test code = EVERTON) Association of Glomerular Filtration Rate (GFR) and Staging of Kidney Disease* + +--------- + ----+| GFR (mL/min/1.73 m2) ?| With Kidney Damage ?| ?Without Kidney Damage+ +--- + +| ?>90 ?| ?Stage one ?| ? Normal ?+ +-------- + -----+| ?60-89 ?| ?Stage two ?| ? Decreased GFR ? + +--------- + ----+| ?30-59 ?| ?Stage three ?| ? Stage three ? + +--------- + ----+| ?15-29 ?| ?Stage four ? | ? Stage four ?+ +-------- + -----+| ?<15 (or dialysis) ? ?| ?Stage five ? | ? Stage five ?+ +-------- + -----+ *Each stage assumes the associated GFR level [...] or urine or abnormalities in imaging tests). [facility]33 Test Item Value Reference Range Interpretation Comments LIPASE (test code = 0425741084) 108 U/L 0-220 Lab Interpretation (test code = Normal 66404-6) [facility] [id number] 06:00:12 Test Item Value Reference Range Interpretation Comments WBC (test code = See_Comment [Automated 0590-2) message] The sy stem which generated this [...] as normal/abnormal . HGB (test code = 15.2 g/dL 12.2-16.4 718-7) HCT (test code = 42.5 % 38.4-49.3 4544-3) MCV (test code = 85.2 fL 81.7-95.6 787-2) MCH (test code = 30.5 pg 26.1-32.7 785-6) MCHC (test code = 35.8 g/dL 31.2-35.0 H 786-4) RDW-SD (test code = 37.2 fL 38.5-51.6 L 44756-0) RDW-CV (test code = 12.0 % 12.1-15.4 L 788-0) PLT (test code = See_Comment [Automated 777-3) message] The sy stem which generated this result transmitted reference range : 150 - 328 10*3/ ?L. The reference r abhijit was not used to interpret this result as normal/abnormal . MPV (test code = 9.3 fL 9.8-13.0 L 64020-2) NRBC/100 WBC (test See_Comment [Automat ed code = 3022002354) message] The system which generated this result transmitted reference range : 0.0 - 10.0 /100 WBCs. The refer ence range was not u sed to interpret th is result as normal/abnormal . NRBC x10^3 (test code <0.01 See_Comment [Auto mated = 6084365669) message] The s ystem which generated this result transmitted reference range : 10*3/?L. The reference range was not used to interpret this result as normal/abnormal . GRAN MAT (NEUT) % 56.2 % (test code = 770-8) IMM GRAN % (test code 0.40 % = 1372129319) LYMPH % (test code = 34.8 % 736-9) MONO % (test code = 7.7 % 5905-5) EOS % (test code = 0.6 % 713-8) BASO % (test code = 0.3 % 706-2) GRAN MAT x10^3(ANC) 5.73 10*3/uL 1.99-6.95 (test code = 9670644427) IMM GRAN x10^3 (test 0.04 10*3/uL 0.00-0.06 code = 1378893008) LYMPH x10^3 (test code 3.55 10*3/uL 1.09-3.23 H = 731-0) MONO x10^3 (test code 0.79 10*3/uL 0.36-1.02 = 742-7) EOS x10^3 (test code = 0.06 10*3/uL 0.06-0.53 711-2) BASO x10^3 (test code 0.03 10*3/uL 0.01-0.09 = 704-7) Lab Interpretation Abnormal (test code = 34313-2) [id number] 05:53:09 Test Item Value Reference Interpretation Comments Range TROPONIN I (test 0.006 ng/mL See_Comment [Automated code = 7681803895) message] The system which generated this result transmitted reference range : <=0.034. The reference range was not used to interpret this result as normal/abnormal . EVERTON (test code = Reference (Normal) EVERT[place]) Range (defined by the 99th percentile reference [...] biotin. Lab Interpretation Normal (test code = 14462-9) [facility]. METABOLIC PANEL (24657)2021-09-30 05:41:27 Test Item Value Reference Range Interpretation Comments NA (test code = 138 mmol/L 135-145 9018018672) K (test code = 4.2 mmol/L 3.5-5.0 5819185728) CL (test code = 106 mmol/L 98-108 6532454225) CO2 TOTAL (test code = 21 mmol/L 23-31 L 0647210592) AGAP (test code = 2-16 4600545182) BUN (test code = 12 mg/dL 7-23 8888047694) GLUCOSE (test code = 100 mg/dL 70-110 4222209544) CREATININE (test code = 0.93 mg/dL 0.60-1.25 6821207355) TOTAL BILI (test code = 0.5 mg/dL 0.1-1.8 5497453596) CALCIUM (test code = 9.3 mg/dL 8.6-10.6 6148739248) T PROTEIN (test code = 7.3 g/dL 6.3-8.2 3982773719) ALBUMIN (test code = 4.7 g/dL 3.5-5.0 8953830471) ALK PHOS (test code = 79 U/L 34-122 0676604543) ALTv (test code = 24 U/L 5-50 1742-6) AST(SGOT) (test code = 23 U/L 13-40 9192161166) eGFR (test code = mL/min/1.73m2 7464148310) EVERT[place] (test code = EVERT[place]) Association of [...] tests). Lab Interpretation Abnormal (test code = 41190-4) [facility] 05:41:27 Test Item Value Reference Range Interpretation Comments LIPASE (test code = 1373045869) 98 U/L 0-220 Lab Interpretation (test code = Normal 51025-6) [facility] WITH [id number] 05:27:48 Test Item Value Reference Range Interpretation Comments WBC (test code = See_Comment [Automated 4790-2) message] The sy stem which generated this result transmitted reference range : 4.20 - 10.70 10*3/?L. The reference range was not used to interpret this result as normal/abnormal . RBC (test code = See_Comment [Automated 649-8) message] The sy stem which generated this result transmitted reference range : 4.26 - 5.52 10*6/?L. The reference range was not used to interpret this result as normal/abnormal . HGB (test code = 16.3 g/dL 12.2-16.4 718-7) HCT (test code = 45.3 % 38.4-49.3 4544-3) MCV (test code = 87.3 fL 81.7-95.6 787-2) MCH (test code = 31.4 pg 26.1-32.7 785-6) MCHC (test code = 36.0 g/dL 31.2-35.0 H 786-4) RDW-SD (test code = 38.5 fL 38.5-51.6 28216-9) RDW-CV (test code = 11.9 % 12.1-15.4 L 788-0) PLT (test code = See_Comment [Automated 577-3) message] The sy stem which generated this result transmitted reference range : 150 - 328 10*3/ ?L. The reference r abhijit was not used to interpret this result as normal/abnormal . MPV (test code = 9.8 fL 9.8-13.0 93991-6) NRBC/100 WBC (test See_Comment [Automat ed code = 1944629331) message] The system which generated this result transmitted reference range : 0.0 - 10.0 /100 WBCs. The refer ence range was not u sed to interpret th is result as normal/abnormal . NRBC x10^3 (test code <0.01 See_Comment [Auto mated = 6573521570) message] The s ystem which generated this result transmitted reference range : 10*3/?L. The reference range was not used to interpret this result as normal/abnormal . GRAN MAT (NEUT) % 54.4 % (test code = 770-8) IMM GRAN % (test code 0.30 % = 5520301802) LYMPH % (test code = 37.1 % 736-9) MONO % (test code = 7.3 % 5905-5) EOS % (test code = 0.6 % 713-8) BASO % (test code = 0.3 % 706-2) GRAN MAT x10^3(ANC) 5.34 10*3/uL 1.99-6.95 (test code = 4085738096) IMM GRAN x10^3 (test 0.03 10*3/uL 0.00-0.06 code = 2701554099) LYMPH x10^3 (test code 3.64 10*3/uL 1.09-3.23 H = 731-0) MONO x10^3 (test code 0.72 10*3/uL 0.36-1.02 = 742-7) EOS x10^3 (test code = 0.06 10*3/uL 0.06-0.53 711-2) BASO x10^3 (test code 0.03 10*3/uL 0.01-0.09 = 704-7) Lab Interpretation Abnormal (test code = 26144-8) [facility] [id number] 04:57:37Impression: No acute abnormalities evident. RL: 460 End of Report Ordering Physician: JAMAAL TROTTER History: Diarrhea. Perirectal abscess.. Technique: CT abdomen and pelvis with intravenous contrast. Thisexamination was performed accordingto ALARA principles. Comparison: May 26, 2019. Findings: The gallbladder is contracted and otherwise unremarkable. A calcifiedgranuloma of the liver is present. The spleen, pancreas, adrenal glands,and kidneys are unremarkable. Evaluation of the stomach is limited by lackof distention, but no gross gastric abnormalities are apparent. The urinary bladder is unremarkable in appearance. There is noevidence ofcolitis. A normal appendix is identified. There is no bowel obstruction.There is no free intraperitoneal fluid or free intraperitoneal air. No inflammatory changes are seen within the pelvicwall or includedperineum. However, the perineum is incompletely visualized. The includedlung bases are clear. The included bony structures are unremarkable. [facility], Radiant Results Inft User - 02/15/202011:58 PM CDTOrdering Physician: JAMAAL SMITHistory: Diarrhea. Perirectal abscess..Technique: CT abdomen and pelvis with intravenous contrast. Thisexamination was performed according to ALARA principles.Comparison: May 26, 2019.Findings: The gallbladder is contracted and otherwise unremarkable. Acalcifiedgranuloma of the liver is present. The spleen, pancreas, adrenal glands,and kidneys are unremarkable. Evaluation of the stomach is limited by lackof distention, but no gross gastric abnormalities are apparent.The urinary bladder is unremarkable in appearance. There is no evidence ofcolitis. Anormal appendix is identified. There is no bowel obstruction.There is no free intraperitoneal fluid or free intraperitoneal air.No inflammatory changes are seen within the pelvic wall or includedperineum. However, the perineum is incompletely visualized. The includedlung bases are clear. The included bony structures are unremarkable.IMPRESSIONImpression: No acute abnormalities evident.RL: 460End of Report [facility] (NA, K, CL, CO2, GLUCOSE, BUN, CREATININE, CA)2020-02-16 02:37:00 Test Item Value Reference Range Interpretation Comments NA (test code = 138 mmol/L 135-145 9622386464) K (test code = 3.8 mmol/L 3.5-5 1727569555) CL (test code = 105 mmol/L 98-108 3272055856) CO2 TOTAL (test code = 25 mmol/L 23-31 9103321228) AGAP (test code = 2-16 4586742946) BUN (test code = 11 mg/dL 7-23 2940057955) GLUCOSE (test code = 111 mg/dL 70-110 H 0157969147) CREATININE (test code = 0.95 mg/dL 0.6-1.25 1483335250) CALCIUM (test code = 9.4 mg/dL 8.6-10.6 2719830570) eGFR Calculation mL/min/1.73m2 (Non-) (test code = 6051875079) eGFR Calculation mL/min/1.73m2 () (test code = 5655317638) [place] (test code = [place]) Association of [...] tests). Lab Interpretation Abnormal (test code = 10377-8) [facility] (ALB, T.PRO, BILI T, BU/BC, ALT, AST, ALK PHOS)2020-02-16 02:37:00 Test Item Value Reference Range Interpretation Comments TOTAL BILI (test code = 2218503654) 0.2 mg/dL 0.1-1.1 BILI UNCON (test code = 4584186025) 0.3 mg/dL 0.1-1.1 BILI CONJ (test code = 2303236432) 0.0 mg/dL 0-0.3 T PROTEIN (test code = 9543969320) 7.4 g/dL 6.3-8.2 ALBUMIN (test code = 2911585634) 4.5 g/dL 3.5-5 ALK PHOS (test code = 4860942059) 70 U/L 34-122 ALTv (test code = 1742-6) 19 U/L 5-50 AST(SGOT) (test code = 5011912205) 22 U/L 13-40 Lab Interpretation (test code = Normal 09407-4) [facility] [id number] 02:37:00 Test Item Value Reference Range Interpretation Comments LIPASE (test code = 8425040097) 71 U/L 0-220 Lab Interpretation (test code = Normal 71192-8) [facility]inalysis2020-08-10 02:31:00 Test Item Value Reference Range Interpretation Comments APPEARANCE (test code = Clear Clear 8230874850) COLOR (test code = Yellow Yellow 4573754305) PH (test code = 4.8-8.0 3431492835) SP GRAVITY (test code = 1.003-1.030 2602756599) GLU U QUAL (test code = Normal Normal 9047202783) BLOOD (test code = Negative Negative 6287536434) KETONES (test code = 5 mg/dL Negative A 4729734041) PROTEIN (test code = Negative Negative 2887-8) UROBILIN (test code = 2.0 mg/dL Normal A 7157972129) BILIRUBIN (test code = Negative Negative 7195531057) NITRITE (test code = Negative Negative 1967980545) LEUK EMMANUEL (test code = Negative Negative 8549928392) RBC/HPF (test code = <1 See_Comment [Autom ated message] 8999433621) The system [employer] generated this result transmit clay reference range : 0 - 3 HPF. The refe rence range was not u sed to interpret th is result as normal/abnormal . WBC/HPF (test code = <1 See_Comment [Autom ated message] 8380018521) The system [employer] generated this result transmit clay reference range : 0 - 5 HPF. The refe rence range was not u sed to interpret th is result as normal/abnormal . BACTERIA (test code = Negative Negative 6533989292) MUCOUS (test code = Slight Negative LPF A 0151686757) SQ EPITH (test code = <1 HPF 4599963465) Lab Interpretation (test Abnormal code = 20761-1) [facility] with [id number] 02:23:00 Test Item Value Reference Range Interpretation [...] (test code = 35.2 fL 38.5-51.6 L 25523-7) RDW-CV (test code = 11.3 % 12.1-15.4 L 788-0) PLT (test code = See_Comment [Automated 777-3) message] The sy stem which generated this result transmitted reference range : 150 - 328 10*3/ ?L. The reference r abhijit was not used to interpret this result as normal/abnormal . MPV (test code = 10.0 fL 9.8-13 99689-3) NRBC/100 WBC (test See_Comment [Automat ed code = 7292280613) message] The system which generated this result transmitted reference range : 0.0 - 10.0 /100 WBCs. The refer ence range was not u sed to interpret th is result as normal/abnormal . NRBC x10^3 (test code <0.01 See_Comment [Auto mated = 9901992760) message] The s ystem which generated this result transmitted reference range : 10*3/?L. The reference range was not used to interpret this result as normal/abnormal . GRAN MAT (NEUT) % 60.4 % (test code = 770-8) IMM GRAN % (test code 0.10 % = 9793818690) LYMPH % (test code = 32.6 % 736-9) MONO % (test code = 6.3 % 5905-5) EOS % (test code = 0.5 % 713-8) BASO % (test code = 0.1 % 706-2) GRAN MAT x10^3(ANC) 5.29 10*3/uL 1.99-6.95 (test code = 8934259173) IMM GRAN x10^3 (test <0.03 0-0.06 code = 6403247469) LYMPH x10^3 (test code 2.85 10*3/uL 1.09-3.23 = 731-0) MONO x10^3 (test code 0.55 10*3/uL 0.36-1.02 = 742-7) EOS x10^3 (test code = 0.04 10*3/uL 0.06-0.53 L 711-2) BASO x10^3 (test code <0.03 0.01-0.09 = 704-7) Lab Interpretation Abnormal (test code = 10557-7) [facility] Test Item Value Reference Range Interpretation Comments APPEARANCE (test code = Clear Clear 5224952788) COLOR (test code = Straw Yellow A 3391077171) PH (test code = 4.8-8.0 7454909827) SP GRAVITY (test code = 1.003-1.030 4721699538) GLU U QUAL (test code = Normal Normal 9768635255) BLOOD (test code = Negative Negative 7975660743) KETONES (test code = Negative Negative 6825299952) PROTEIN (test code = Negative Negative 2887-8) UROBILIN (test code = Normal Normal 1408299146) BILIRUBIN (test code = Negative Negative 2043675875) NITRITE (test code = Negative Negative 3415495746) LEUK EMMANUEL (test code = Negative Negative 3244447373) RBC/HPF (test code = See_Comment [Autom ated message] 1305392687) The system [employer] generated this result transmitted ref erence range: 0 - 3 HP F. The reference range was not used to int erpret this result as normal/abnormal . WBC/HPF (test code = <1 See_Comment [Autom ated message] 5516571506) The system [employer] generated this result transmitted ref erence range: 0 - 5 HP F. The reference range was not used to int erpret this result as normal/abnormal . BACTERIA (test code = Negative Negative 5565991407) MUCOUS (test code = Slight Negative LPF A 7792526953) Lab Interpretation (test Abnormal code = 43680-1) [facility] METABOLIC PANEL ([id number])2019-09-20 00:48:00 Test Item Value Reference Range Interpretation Comments NA (test code = 141 mmol/L 135-145 4776426068) K (test code = 3.9 mmol/L 3.5-5 8034425405) CL (test code = 106 mmol/L 98-108 5887989701) CO2 TOTAL (test code = 25 mmol/L 23-31 5428267869) AGAP (test code = 2-16 7985166235) BUN (test code = 14 mg/dL 7-23 7205120857) GLUCOSE (test code = 101 mg/dL 70-110 3944477272) CREATININE (test code 1.03 mg/dL 0.6-1.25 = 7972875870) TOTAL BILI (test code 0.3 mg/dL 0.1-1.1 = 9242720704) CALCIUM (test code = 9.9 mg/dL 8.6-10.6 6449935511) T PROTEIN (test code = 6.8 g/dL 6.3-8.2 2829348200) ALBUMIN (test code = 4.7 g/dL 3.5-5 5007231161) ALK PHOS (test code = 63 U/L 34-122 9601691231) ALTv (test code = 20 U/L 5-50 1742-6) AST(SGOT) (test code = 20 U/L 13-40 4180196262) eGFR Calculation mL/min/1.73m2 (Non-) (test code = 8703692338) eGFR Calculation mL/min/1.73m2 () (test code = 3517100269) [place] (test code = EVERTON) Association of [...] or urine or abnormalities in imaging tests). [facility] WITH [id number] 00:31:00 Test Item Value Reference Range Interpretation [...] (test code = 38.2 fL 38.5-51.6 L 33324-3) RDW-CV (test code = 12.0 % 12.1-15.4 L 788-0) PLT (test code = See_Comment [Automated 777-3) message] The sy stem which generated this result transmitted reference range : 150 - 328 10*3/ ?L. The reference r abhijit was not used to interpret this result as normal/abnormal . MPV (test code = 10.0 fL 9.8-13 74244-9) NRBC/100 WBC (test See_Comment [Automat ed code = 5192181732) message] The system which generated this result transmitted reference range : 0.0 - 10.0 /100 WBCs. The refer ence range was not u sed to interpret th is result as normal/abnormal . NRBC x10^3 (test code <0.01 See_Comment [Auto mated = 1763328662) message] The s ystem which generated this result transmitted reference range : 10*3/?L. The reference range was not used to interpret this result as normal/abnormal . GRAN MAT (NEUT) % 60.6 % (test code = 770-8) IMM GRAN % (test code 0.40 % = 2892062714) LYMPH % (test code = 31.9 % 736-9) MONO % (test code = 6.1 % 5905-5) EOS % (test code = 0.8 % 713-8) BASO % (test code = 0.2 % 706-2) GRAN MAT x10^3(ANC) 5.02 10*3/uL 1.99-6.95 (test code = 0444595541) IMM GRAN x10^3 (test 0.03 10*3/uL 0-0.06 code = 6567845715) LYMPH x10^3 (test code 2.65 10*3/uL 1.09-3.23 = 731-0) MONO x10^3 (test code 0.51 10*3/uL 0.36-1.02 = 742-7) EOS x10^3 (test code = 0.07 10*3/uL 0.06-0.53 711-2) BASO x10^3 (test code <0.03 0.01-0.09 = 704-7) Lab Interpretation Abnormal (test code = 59886-3) [facility] [id number] 02:58:35Impression: 1. Fluid-filled, nondilated distal small bowel loops with mucosal foldthickening, suggestive of enteritis.2. Normal appendix. No free air or free fluid. RL: 2824AFC: [id number] End of Report Exam: CT Abdomen and Pelvis With Contrast, 7:30 PM. Ordering Physician: SABI BERMAN. History: [...] 07/27/2019 7:30 PM.Ordering Physician: SABI BERMAN.History: Abdominal pain.Technique:CT abdomen and pelvis was obtained with intravenous [...] or free fluid. There is no abdominal adenopathy.Stomach is unremarkable. There is mild gaseous distention of small bowelloops. Fluid- filled, nondilated small bowel loops are noted. There isdistal small bowel mucosal fold thickening,involving the terminal ileum.There is no evidence of bowel obstruction. Appendix is normal.CT Pelvis:Pelvic small bowel loops are unremarkable.Urinary bladder is unremarkable. Prostate and seminal vesicles are notenlarged.There is no pelvic free fluid. There is no pelvic adenopathy.Osseous structures are unremarkable. IMPRESSIONImpression: 1. Fluid-filled, nondilated distal small bowel loops with mucosal foldthickening, suggestive of enteritis.2. Normal appendix. No free air or free fluid.RL: 2824AFC: 40949Hlt of Report [facility]. METABOLIC PANEL ([id number])2019-07-28 02:28:00 Test Item Value Reference Range Interpretation Comments NA (test code = 140 mmol/L 135-145 5870998501) K (test code = 3.8 mmol/L 3.5-5 7825513721) CL (test code = 107 mmol/L 98-108 5749060742) CO2 TOTAL (test code = 24 mmol/L 23-31 2966465636) AGAP (test code = 2-16 0688934062) BUN (test code = 14 mg/dL 7-23 4956480247) GLUCOSE (test code = 119 mg/dL 70-110 H 4484122218) CREATININE (test code = 1.03 mg/dL 0.6-1.25 9486306690) TOTAL BILI (test code = 0.2 mg/dL 0.1-1.4 4543322924) CALCIUM (test code = 9.6 mg/dL 8.6-10.6 8705769096) T PROTEIN (test code = 7.8 g/dL 6.3-8.2 3096357010) ALBUMIN (test code = 4.9 g/dL 3.5-5 3837876192) ALK PHOS (test code = 69 U/L 34-122 6868428521) ALTv (test code = 47 U/L 5-50 1742-6) AST(SGOT) (test code = 30 U/L 13-40 4307836661) eGFR Calculation mL/min/1.73m2 (Non-) (test code = 3614226382) eGFR Calculation mL/min/1.73m2 () (test code = 8167091167) [place]ERT[place] (test code = EVERTON) Association of [...] tests). Lab Interpretation Abnormal (test code = 98595-8) [facility]00 Test Item Value Reference Range Interpretation Comments LIPASE (test code = 4929768174) 103 U/L 0-220 Lab Interpretation (test code = Normal 79802-5) [facility] WITH [id number] 02:09:00 Test Item Value Reference Range Interpretation Comments WBC (test code = See_Comment [Automated 4916-2) message] The sy stem which generated this result transmitted reference range : 4.20 - 10.70 10*3/?L. The reference range was not used to interpret this result as normal/abnormal . RBC (test code = See_Comment [Automated 285-8) message] The sy stem which generated this [...] (test code = 35.8 fL 38.5-51.6 L 50473-3) RDW-CV (test code = 11.8 % 12.1-15.4 L 788-0) PLT (test code = See_Comment [Automated 777-3) message] The sy stem which generated this result transmitted reference range : 150 - 328 10*3/ ?L. The reference r abhijit was not used to interpret this result as normal/abnormal . MPV (test code = 10.2 fL 9.8-13 35673-5) NRBC/100 WBC (test See_Comment [Automat ed code = 7187065007) message] The system which generated this result transmitted reference range : 0.0 - 10.0 /100 WBCs. The refer ence range was not u sed to interpret th is result as normal/abnormal . NRBC x10^3 (test code <0.01 See_Comment [Auto mated = 1181249868) message] The s ystem which generated this result transmitted reference range : 10*3/?L. The reference range was not used to interpret this result as normal/abnormal . GRAN MAT (NEUT) % 59.2 % (test code = 770-8) IMM GRAN % (test code 0.20 % = 7218020392) LYMPH % (test code = 31.1 % 736-9) MONO % (test code = 8.5 % 5905-5) EOS % (test code = 0.8 % 713-8) BASO % (test code = 0.2 % 706-2) GRAN MAT x10^3(ANC) 5.01 10*3/uL 1.99-6.95 (test code = 2030393505) IMM GRAN x10^3 (test <0.03 0-0.06 code = 2350087710) LYMPH x10^3 (test code 2.63 10*3/uL 1.09-3.23 = 731-0) MONO x10^3 (test code 0.72 10*3/uL 0.36-1.02 = 742-7) EOS x10^3 (test code = 0.07 10*3/uL 0.06-0.53 711-2) BASO x10^3 (test code <0.03 0.01-0.09 = 704-7) Lab Interpretation Abnormal (test code = 90848-1) [facility]LV[facility] W/O [id number] 19:08:00NPO 4 hours. Do not withhold medsProcedure: [...] spleen. There is no evidence of a subcapsularhematomaor fluid collection.The pancreas is normal in size and density. There are no pancreaticcalcifications or masses. There is no pancreatic ductal dilatation.The adrenal glands are normal in size bilaterally. There are no adrenal massesbilaterally.The right kidney is normal in size and shape. There are nocalculi, masses, orhydronephrosis.The left kidney is normal in size and shape. There are no calculi,masses, orhydronephrosis.Aorta is normal in size and diameter. [...] MD 06/12/20177:01 PMDictated By: ENZO CABRERA.Date: 06/12/2017 19:[id number] 18:51:00 Test Item Value Reference Range Interpretation [...] , each yielding differ ent values. This co rrected result was base d on the formula: Co rrected Calcium = Serum Calcium + [0.8 * ( 4 - SerumAlbumin)] EGFR if >60 Albanian (test code mL/min/1.73m\\ = EGFRAA) S\\2 EGFR if Non- >60 Estimate d Glomerular Albanian (test code mL/min/1.73m\\ Filtrat ion Rate (eGFR) = EGFRNA) S\\2 Reference Inter vals Decision Points for 18 years and older and average body ma ss: >= 60 Does not exc lude kidney disease. 30 - 59 Suggests mod erate chronic kidney disease and indicates the need for furthe r investigation including asses sment of proteinuria and cardiovascular factors. < 30 Usually indicates a nee d for referral for assessment and management of c hronic kidney failure. Anion Gap (test 11 code = GAP) CBC WITH AUTO [id number] 18:02:00 Test Item Value Reference Range Interpretation [...] = 0 /100WBC 0-2 NRBC_AUTO) URINALYSIS WITHOUT [id number] 17:32:00 Test Item Value Reference Range Interpretation Comments Color (test code = UCOLR) Yellow Lt. Yellow A Clarity (test code = UCLAR) Clear Glucose (test code = UGLUC) Negative Negative N Bilirubin (test code = UBILI) Negative Negative N Ketones (test code = UKET) Negative Negative N Specific [place] (test code = 1.015 1.005-1.030 A USPGR) [...]
--- NOTE | 2022-02-14 21:41 | ER ---
Nurse's Notes [facility] Name: Sunny Angel Age: 31 yrs Sex: Male : 1990 Arrival Date: 02/14/2022 Time: 21:01 Bed 5 Private MD: Diagnosis: Low back pain;Paresthesia of skin Presentation: 02/14 21:26 Chief complaint: Patient states: C/o vomiting and diarrhea that started today, c/o left ll3 groin pain that radiates to back and down both legs bilaterally. Coronavirus screen: Vaccine status: Patient reports being unvaccinated. diarrhea, vomiting. Ebola Screen: No symptoms or risks identified at this time. Initial Sepsis Screen: Does the patient meet any 2 criteria? No. Patient's initial sepsis screen is negative. Does the patient have a suspected source of infection? No. Patient's initial sepsis screen is negative. Risk Assessment: Do you want to hurt yourself or someone else? Patient reports no desire to harm self or others. Onset of symptoms was February 14, 2022. 21:26 Method Of Arrival: Ambulatory ll3 21:26 Acuity: GILBERT 3 ll3 Historical: - Allergies: 21:28 Latex, Natural Rubber; ll3 21:28 SEAFOOD; ll3 - PMHx: 21:28 depressive disorder; ll3 - PSHx: 21:28 hernia; oral SX; ll3 - Immunization history:: Client reports having NOT received the Covid vaccine. - Social history:: Smoking status: Patient reports the use of cigarette tobacco products, smokes one pack cigarettes per day. - Family history:: not pertinent. - Hospitalizations: : No recent hospitalization is reported. Assessment: 21:42 General: PT seen by physician in room. Pt declining treatment and pt left without kd3 paperwork. Pt discharged per MD. . Vital Signs: 21:26 BP 134 / 89; Pulse 86; Resp 18; Temp 98.5(O); Pulse Ox 99% on R/A; Weight 85.28 kg (R); ll3 Height 5 ft. 4 in. (162.56 cm) (R); Pain 7/10; 21:26 Body Mass Index 32.27 (85.28 kg, 162.56 cm) ll3 ED Course: 21:01 Patient arrived in ED. ja2 21:10 Fredi Kelley MD is Attending Physician. rn 21:22 Cassius Garcia, RN is Primary Nurse. jb4 21:28 Triage completed. ll3 21:28 Arm band placed on Patient placed in an exam room, on a stretcher, on pulse oximetry. ll3 Administered Medications: 21:41 Not Given (Patient Refused): morphine 4 mg IVP once over 4 mins kd3 21:41 Not Given (Patient Refused): Decadron - Dexamethasone 10 mg IVP once kd3 21:42 Not Given (Patient Refused): NS 0.9% 1000 ml IV at 1 bolus Per protocol; 1000 mL bolus kd3 21:42 Not Given (Patient Refused): Zofran (Ondansetron) 4 mg IVP once; over 2 minutes kd3 Outcome: 21:40 Discharge ordered by . rn 21:43 Patient left the ED. kd3 Signatures: Fredi Kelley MD MD rn Bryson, James, RN RN jb4 Jessica Mckeon2 Sandra Pinto RN RN 3 Betzaida Greer RN RN kd3
--- NOTE | 2022-02-14 21:41 | EDPHYS ---
Physician Documentation [facility] Name: Sunny Angel Age: 31 yrs Sex: Male : 1990 Arrival Date: 02/14/2022 Time: 21:01 Bed 5 Private MD: ED Physician Fredi Kelley HPI: 02/14 21:35 This 31 yrs old Male presents to ER via Ambulatory with complaints of Abdominal Pain, rn Leg Pain, Back Pain, Vomiting. 21:35 The patient presents with pain, that is acute. The complaints affect the right leg and rn left leg. Onset: The symptoms/episode began/occurred at an unknown time. Modifying factors: The symptoms are alleviated by nothing. the symptoms are aggravated by nothing. Severity of symptoms: At their worst the symptoms were mild, in the emergency department the symptoms are unchanged. The patient has not experienced similar symptoms in the past. The patient has not recently seen a physician. Pt reports chronic GI issues, vomiting again today, but also having low back pain with tingling of both lower extremities. NO incontinence of bowel or bladder. NO trauma. NO blood in stool. No fever. . Historical: - Allergies: 21:28 Latex, Natural Rubber; ll3 21:28 SEAFOOD; ll3 - PMHx: 21:28 depressive disorder; ll3 - PSHx: 21:28 hernia; oral SX; ll3 - Immunization history:: Client reports having NOT received the Covid vaccine. - Social history:: Smoking status: Patient reports the use of cigarette tobacco products, smokes one pack cigarettes per day. - Family history:: not pertinent. - Hospitalizations: : No recent hospitalization is reported. ROS: 21:35 Constitutional: Negative for fever, chills, and weight loss, Eyes: Negative for injury, rn pain, redness, and discharge, Neck: Negative for injury, pain, and swelling, Cardiovascular: Negative for chest pain, palpitations, and edema, Respiratory: Negative for shortness of breath, cough, wheezing, and pleuritic chest pain, Abdomen/GI: + vomiting, negative for abd pain Back: + low back pain : Negative for injury, bleeding, discharge, and swelling, MS/Extremity: Negative for injury and deformity, Skin: Negative for injury, rash, and discoloration, Neuro: Negative for headache, weakness, and seizure. Exam: 21:35 Constitutional: This is a well developed, well nourished patient who is awake, alert, rn and in no acute distress. Ambulatory to room and triage. Head/Face: Normocephalic, atraumatic. Neck: Trachea midline, no thyromegaly or masses palpated, and no cervical lymphadenopathy. Supple, full range of motion without nuchal rigidity, or vertebral point tenderness. No Meningismus. Cardiovascular: Regular rate and rhythm. No pulse deficits. Respiratory: No increased work of breathing, no retractions or nasal flaring. Abdomen/GI: Soft, non-tender, no masses Back: No spinal tenderness. No costovertebral tenderness. Full range of motion. Skin: Warm, dry MS/ Extremity: Pulses equal, no cyanosis. Neurovascular intact. Full, normal range of motion. Equal circumference. Neuro: Awake and alert, GCS 15, oriented to person, place, time, and situation. Motor strength 5/5 in all extremities. Sensory grossly intact. Cerebellar exam normal. Normal gait. Vital Signs: 21:26 BP 134 / 89; Pulse 86; Resp 18; Temp 98.5(O); Pulse Ox 99% on R/A; Weight 85.28 kg (R); ll3 Height 5 ft. 4 in. (162.56 cm) (R); Pain 7/10; 21:26 Body Mass Index 32.27 (85.28 kg, 162.56 cm) ll3 MDM: 21:10 Patient medically screened. rn 21:35 Differential diagnosis: radiculopathy, colitis, electrolyte disturbance. Data reviewed: rn vital signs, nurses notes. Refusal of service: The patient/guardian displays adequate decision making capability and despite a detailed discussion of alternatives, benefits, risks, and consequences refuses: CT Scan, all lab tests, Medications. ED course: After initial discussion and plan which he agreed to, patient got up and said he had to leave, his kids are at home and his father is not answering, states will come back if symptoms dont get better. . Administered Medications: 21:41 Not Given (Patient Refused): morphine 4 mg IVP once over 4 mins kd3 21:41 Not Given (Patient Refused): Decadron - Dexamethasone 10 mg IVP once kd3 21:42 Not Given (Patient Refused): NS 0.9% 1000 ml IV at 1 bolus Per protocol; 1000 mL bolus kd3 21:42 Not Given (Patient Refused): Zofran (Ondansetron) 4 mg IVP once; over 2 minutes kd3 Disposition Summary: 02/14/22 21:40 Discharge Ordered Location: Home rn Problem: new rn Symptoms: have improved rn Condition: Stable rn Diagnosis - Low back pain rn - Paresthesia of skin rn Followup: rn - With: Private Physician - When: As needed - Reason: Recheck today's complaints, Re-evaluation by your physician Discharge Instructions: - Discharge Summary Sheet rn - Acute Back Pain, Adult rn - Pain Without a Known Cause rn - Paresthesia rn Forms: - Medication Reconciliation Form rn - Thank You Letter rn - Antibiotic ornament stapler - Prescription Opioid Use rn Signatures: Dispatcher [employer] EDMS Fredi Kelley MD MD rn Loubet, Lynsea, RN RN 3 Betzaida Greer RN kd3 Corrections: (The following items were deleted from the chart) 21:38 21:35 Constitutional: Negative for fever, chills, and weight loss, Eyes: Negative for rn injury, pain, redness, and discharge, Cardiovascular: Negative for chest pain, palpitations, and edema, Respiratory: Negative for shortness of breath, cough, wheezing, and pleuritic chest pain, Abdomen/GI: + vomiting, negative for abd pain Back: + low back pain : Negative for injury, bleeding, discharge, and swelling, MS/Extremity: Negative for injury and deformity, Skin: Negative for injury, rash, and discoloration, Neuro: Negative for headache, weakness, and seizure, rn 21:41 21:30 Urine Dipstick-Ancillary ordered. rn kd3 21:42 21:29 IV Saline Lock ordered. rn kd3 21:42 21:29 Labs collected and sent ordered. rn kd3
[2022-02-14 22:44] VITALS: BP 134/89; TEMP 98.5; O2SAT 99
== END 2022-02-14 21:43 | disposition home or self-care (01) ==
LOC: ER 20:56
DX: M54.50 Low back pain, unspecified (principal); R20.2 Paresthesia of skin; F17.210 Nicotine dependence, cigarettes, uncomplicated; Z91.013 Allergy to seafood; Z91.040 Latex allergy status; Z91.048 Other nonmedicinal substance allergy status

== ENCOUNTER 2022-02-21 21:30 | Emergency (ER) | payer OTHER ==
--- OUTSIDE RECORDS SUMMARY | 2022-02-21 21:36 | XMS REPORT | Continuity of Care Document ---
:1990 Author Organization [facility] t Address [address] [place] [address] Care Team Providers Name Role Phone ISSA ROGERS JR Primary Care Physician Unavailable RONALD SHIELDS Attending Clinician Unavailable Ronald Shields MD Attending Clinician Xiang Benavides MD Attending Clinician Rosalva Zelaya Attending Clinician Unavailable GARTH BAUTISTA Attending Clinician Unavailable Garth Albarran Attending Clinician UNKNOWN, ATTENDING Attending Clinician Unavailable Jamaal Padilla Attending Clinician Jamaal Louise Attending Clinician Doctor Unassigned, Tol[place]oy Attending Clinician Unavailable Po, Acute Care Clinic [...] Date Expiration Date S vonnie [place] - [id number] 2019 OUT OF STATE 00:00:00 [facility] [id number] 2017 CHOICE MEDICAID 00:00:00 Problems Condition Condition [...] rs active active ity of problems problems [facility] Allergies, Adverse Reactions, Alerts Allergy Allergy Status Severity Reaction(s) Onset Inactive Treating Comm ents Source Name Type Date Date Clinician Latex Propensi Active Rash Univers ty to 4-11 ity of adverse 00:00: [place] reaction 00 Medical s Branch LATEX DRUG Active Rash Univers INGREDI 4-11 ity of 00:00: Medical Branch No Known DA Active U [facility] Allergie 3-24 [place] s 00:00: d 00 Medical [place] SHRIMP DRUG Active Anaphylaxis Unive rs INGREDI 9- ity of 00:00: [address] Shrimp Propensi Active Anaphylaxis 2015- Pt Uni vers ty to 03-30 reports ity of adverse 00:00: it is [place] reaction 00 only raw Medica l s shrimp. Branch Pt reports he can eat cooked shrimp. Social History Social Habit Start Date Stop Date Quantity Comments Source History of tobacco 2002-10-17 Smoker Univer sity of use 00:00:00 [facility] Exposure to 2021-12-10 2021-12-20 Not sure [facility] SARS-CoV-2 (event) 00:00:00 23:45:00 [facility] Alcohol intake 2020-02-06 2020-02-06 Current University of 00:00:00 00:00:00 non-drinker of [facility] alcohol [place] (finding) Tobacco use and 2017-10-17 2017-10-17 Never used Universit y of exposure 00:00:00 00:00:00 [facility] Cigarettes smoked 2017-10-17 2017-10-17 Univers ity of current (pack per 00:00:00 00:00:00 [facility] ) - Reported Branch Cigarette 2017-10-17 2017-10-17 University of pack-years 00:00:00 00:00:00 [facility] Sex Assigned At [birth year] Universit y of 00:00:00 00:00:00 [facility] Smoking Status Start Date Stop Date Source Heavy tobacco smoker [facility] (LUF/ELISABETH/SA) Current every day smoker 2017-10-17 00:00:00 Uni versity of [facility] Medications Ordered Filled Start Stop Current Ordering [...] 12/21/21 at 0130, [place] montelukast 2021- Yes [id number] 10mg Take 1 Univers (SINGULAIR) 12-21-16 tablet [...] 1000mL at 999 Uni vers (NS) bolus 09-30- mL/hr, ity of infusion 06:15: 06:32 1,000 mL, Kristian as 1,000 mL 00 :00 IV Medical Infusion, Branch ONCE, 1 dose, On Sun09/30/21 at 0115, STAT iopamidol 2021- No [id number] 110mL 110 mL, Univers (ISOVUE 09-30 Intravenou ity o f 370-500 mL) 05:56: 05:57 s, ONCE, 1 [place] injection 00 :00 dose, On Medica l 110 mL Fri Branch 09/30/21 at 0115, Routine ondansetron Yes [id number] 4mg Take 1 Univers 4 mg 3-25 tablet by ity of disintegrat 00:00: mouth [place] ing tablet 00 every 8 Medica l (eight) Branch hours as needed for Nausea and Vomiting (N/V). ondansetron 2021-0 Yes [id number] 4mg Take 1 Univers 4 mg 3-25 tablet by ity of disintegrat 00:00: mouth [place] ing tablet 00 every 8 Medica l (eight) Branch hours as needed for Nausea and Vomiting (N/V). ondansetron 2021-0 Yes [id number] 4mg Take 1 Univers 4 mg 3-25 tablet by ity of disintegrat 00:00: mouth [place] ing tablet 00 every 8 Medica l (eight) Branch hours as needed for Nausea and Vomiting (N/V). levocetiriz 0 202- No [id number] 5mg Take 1 Univers ine (XYZAL) 3-25 04-19 tablet by it y of 5 mg tablet 00:00: 04:59 [place] 00 :00 every Medical evening Branch for 24 days. ondansetron 0 2019- No 4mg 4 mg, Slow Univers [...] 2200, 120 mL Routine hydrocortis 2019-0 Yes [id number] Insert Univers one 8-10 into ity of (ANUSOL-HC) 00:00: rectum 2 [place] 2.5 % 00 (two) Medical rectal times Branch cream daily. hydrocortis 2019-0 Yes [id number] Insert Univers one 8-10 into ity of (ANUSOL-HC) 00:00: rectum 2 [place] 2.5 % 00 (two) Medical rectal times Branch cream daily. hydrocortis 2020-0 Yes [id number] Insert Univers one 8-10 into ity of (ANUSOL-HC) 00:00: rectum 2 [place] 2.5 % 00 (two) Medical rectal times Branch cream daily. hydrocortis 2020-0 Yes [id number] Insert Univers one 8-10 into ity of (ANUSOL-HC) 00:00: rectum 2 [place] 2.5 % 00 (two) Medical rectal times Branch cream daily. cephALEXin 2019- 2020- No [id number] 500mg Take 1 Univers (KEFLEX) 02-05 08-08 capsule by ity of 500 mg 00:00: 04:59 mouth 4 [place] capsule 00 :00 (four) Medical times Branch daily for 7 days. benzonatate 2019-0 2020- No [id number] 100mg Take 1 Univers (TESSALON 01-18 07-24 capsule by ity of PERLES) 100 00:00: 04:59 mouth 3 [place] mg capsule 00 :00 (three) Medica l times Branch daily as needed for Cough for up to 10 days. doxycycline 2019-0 2020- No [id number] 100mg Take 1 Univers hyclate 100 01-18 [...] mg 09/19/19 at Branch 2114, [place] morpHINE 2019-0 2020- No 4mg 4 [...] 09/19/19 at 2115, Routine NaCl 0.9% 2019- 2020- No 1000mL at 999 Uni vers (NS) bolus 09-18 03-14 mL/hr, ity of infusion 23:00: 01:26 1,000 mL, [place] as 1,000 mL 00 :00 IV Medical Infusion, [place] ONCE, 1 dose, 09/19/19 at 1800, [place] docusate 2019-0 2019- No [id number] 100mg Take 1 U nivers 100 mg 09-18- capsule by ity of capsule 00:00: 04:59 mouth [place] 00 :00 daily for Medical 7 days. [place] dicyclomine 2019-0 2020- No [id number] 20mg Take 1 Univers 20 mg 09-18 tablet by ity of tablet 00:00: 04:59 mouth 4 [place] 00 :00 (four) Medical times [place] daily for 7 days. polyethlene 2019-2019- No [id number] 17g Take 17 g Univers glycol 09-1818 by mouth ity of powder 00:00: 04:59 daily for [place] packet 00 :00 4 days. Medical Branch iohexol 2019-0 2020- No 120mL 120 mL, Unive rs (OMNIPAQUE 1-20 -20 Intravenou it y of 350 03:00: 02:41 s, ONCE, 1 [place] BULK-100 00 :00 dose, Sun Medica l mL) 07/27/19 at [place] injection 2100, 120 mL Routine dicyclomine 2019-0 Yes 10mg 10 mg, Univ ers (BENTYL) 1-20 Oral, QID, ity o f capsule 10 02:00: First dose [place] mg 00 on [facility] 07/27/19 at Branch 2000, Until Discontinu ed, Routine dicyclomine 2020-0 Yes [id number] 10mg Take 1 Univers (BENTYL) 10 -19 capsule by it y of mg capsule 00:00: mouth [place] 00 every 8 Medical (eight) Branch hours as needed for Abdominal pain. ondansetron 2019-0 Yes [id number] 4mg Take 1 Univers 4 mg -19 tablet by ity of disintegrat 00:00: mouth [place] ing tablet 00 every 8 Medica l (eight) Branch hours as needed for Nausea and Vomiting (N/V). methylPREDN 2020-0 Yes [id number] Take by Univers ISolone 1-19 mouth ity of (MEDROL, 00:00: SEE-INSTRU [place] as JENNY,) 4 mg 00 CTIONS. Medica l tablets follow Branch package directions dicyclomine 2020-0 Yes [id number] 10mg Take 1 Univers (BENTYL) 10 1-19 capsule by it y of mg capsule 00:00: mouth [place] 00 every 8 Medical (eight) Branch hours as needed for Abdominal pain. ondansetron 2020-0 Yes [id number] 4mg Take 1 Univers 4 mg 1-19 tablet by ity of disintegrat 00:00: mouth [place] ing tablet 00 every 8 Medica l (eight) Branch hours as needed for Nausea and Vomiting (N/V). methylPREDN 2020-0 Yes [id number] Take by Univers ISolone 1-19 mouth ity of (MEDROL, 00:00: SEE-INSTRU [place] JENNY,) 4 mg 00 CTIONS. Medica l tablets follow Branch package directions dicyclomine 2020-0 Yes [id number] 10mg Take 1 Univers (BENTYL) 10 1-19 capsule by it y of mg capsule 00:00: mouth [place] 00 every 8 Medical (eight) Branch hours as needed for Abdominal pain. ondansetron 2020-0 Yes [id number] 4mg Take 1 Univers 4 mg 1-19 tablet by ity of disintegrat 00:00: mouth [place] ing tablet 00 every 8 Medica l (eight) Branch hours as needed for Nausea and Vomiting (N/V). methylPREDN 2020-0 Yes [id number] Take by Univers ISolone 1-19 mouth ity of (MEDROL, 00:00: SEE-INSTRU [place] as JENNY,) 4 mg 00 CTIONS. Medica l tablets follow Branch package directions dicyclomine 2020-0 Yes [id number] 10mg Take 1 Univers (BENTYL) 10 1-19 capsule by it y of mg capsule 00:00: mouth [place] 00 every 8 Medical (eight) Branch hours as needed for Abdominal pain. ondansetron 2020-0 Yes [id number] 4mg Take 1 Univers 4 mg 1-19 tablet by ity of disintegrat 00:00: mouth [place] ing tablet 00 every 8 Medica l (eight) Branch hours as needed for Nausea and Vomiting (N/V). methylPREDN 2020-0 Yes [id number] Take by Univers ISolone 1-19 mouth ity of (MEDROL, 00:00: SEE-INSTRU [place] as JENNY,) 4 mg 00 CTIONS. Medica l tablets follow Branch package directions dicyclomine 2020-0 Yes [id number] 10mg Take 1 Univers (BENTYL) 10 1-19 capsule by it y of mg capsule 00:00: mouth [place] 00 every 8 Medical (eight) Branch hours as needed for Abdominal pain. ondansetron 2020-0 Yes [id number] 4mg Take 1 Univers 4 mg 1-19 tablet by ity of disintegrat 00:00: mouth [place] ing tablet 00 every 8 Medica l (eight) Branch hours as needed for Nausea and Vomiting (N/V). methylPREDN 2020-0 Yes [id number] Take by Univers ISolone 1-19 mouth ity of (MEDROL, 00:00: SEE-INSTRU [place] JENNY,) 4 mg 00 CTIONS. Medica l tablets follow Branch package directions sucralfate 2020-0 Yes [id number] 1g Take 1 U nivers 1 gram 1-19 tablet by ity of tablet 00:00: mouth [place] 00 before Medical meals and Branch at bedtime. dicyclomine 2020-0 Yes [id number] 10mg Take 1 Univers (BENTYL) 10 1-19 capsule by it y of mg capsule 00:00: mouth [place] 00 every 8 Medical (eight) Branch hours as needed for Abdominal pain. ondansetron 2020-0 Yes [id number] 4mg Take 1 Univers 4 mg 1-19 tablet by ity of disintegrat 00:00: mouth [place] ing tablet 00 every 8 Medica l (eight) Branch hours as needed for Nausea and Vomiting (N/V). methylPREDN 2020-0 Yes [id number] Take by Univers ISolone 1-19 mouth ity of (MEDROL, 00:00: SEE-INSTRU [place] as JENNY,) 4 mg 00 CTIONS. Medica l tablets follow Branch package directions dicyclomine 2020-0 Yes [id number] 10mg Take 1 Univers (BENTYL) 10 1-19 capsule by it y of mg capsule 00:00: mouth [place] 00 every 8 Medical (eight) Branch hours as needed for Abdominal pain. ondansetron 2020-0 Yes [id number] 4mg Take 1 Univers 4 mg 1-19 tablet by ity of disintegrat 00:00: mouth [place] ing tablet 00 every 8 Medica l (eight) Branch hours as needed for Nausea and Vomiting (N/V). methylPREDN 2020-0 Yes [id number] Take by Univers ISolone 1-19 mouth ity of (MEDROL, 00:00: SEE-INSTRU [place] as JENNY,) 4 mg 00 CTIONS. Medica l tablets follow Branch package directions dicyclomine 2020-0 Yes [id number] 10mg Take 1 Univers (BENTYL) 10 1-19 capsule by it y of mg capsule 00:00: mouth [place] 00 every 8 Medical (eight) Branch hours as needed for Abdominal pain. ondansetron 2020-0 Yes [id number] 4mg Take 1 Univers 4 mg 1-19 tablet by ity of disintegrat 00:00: mouth [place] ing tablet 00 every 8 Medica l (eight) Branch hours as needed for Nausea and Vomiting (N/V). methylPREDN 2020-0 Yes [id number] Take by Univers ISolone 1-19 mouth ity of (MEDROL, 00:00: SEE-INSTRU [place] as JENNY,) 4 mg 00 CTIONS. Medica l tablets follow Branch package directions dicyclomine 2020-0 Yes [id number] 10mg Take 1 Univers (BENTYL) 10 1-19 capsule by it y of mg capsule 00:00: mouth [place] 00 every 8 Medical (eight) Branch hours as needed for Abdominal pain. ondansetron 2020-0 Yes [id number] 4mg Take 1 Univers 4 mg 1-19 tablet by ity of disintegrat 00:00: mouth [place] ing tablet 00 every 8 Medica l (eight) Branch hours as needed for Nausea and Vomiting (N/V). methylPREDN 2020-0 Yes [id number] Take by Univers ISolone 1-19 mouth ity of (MEDROL, 00:00: SEE-INSTRU [place] as JENNY,) 4 mg 00 CTIONS. Medica l tablets follow Branch package directions sucralfate 2020-0 Yes [id number] 1g Take 1 U nivers 1 gram 1-19 tablet by ity of tablet 00:00: mouth [place] 00 before Medical meals and Branch at bedtime. dicyclomine 2020-0 Yes [id number] 10mg Take 1 Univers (BENTYL) 10 1-19 capsule by it y of mg capsule 00:00: mouth [place] 00 every 8 Medical (eight) Branch hours as needed for Abdominal pain. ondansetron 2020-0 Yes [id number] 4mg Take 1 Univers 4 mg 1-19 tablet by ity of disintegrat 00:00: mouth [place] ing tablet 00 every 8 Medica l (eight) Branch hours as needed for Nausea and Vomiting (N/V). methylPREDN 2020-0 Yes [id number] Take by Univers ISolone 1-19 mouth ity of (MEDROL, 00:00: SEE-INSTRU [place] as JENNY,) 4 mg 00 CTIONS. Medica l tablets follow Branch package directions sucralfate 2020-0 Yes [id number] 1g Take 1 U nivers 1 gram 1-19 tablet by ity of tablet 00:00: mouth [place] 00 before Medical meals and Branch at bedtime. dicyclomine 2020-0 Yes [id number] 10mg Take 1 Univers (BENTYL) 10 1-19 capsule by it y of mg capsule 00:00: mouth [place] 00 every 8 Medical (eight) Branch hours as needed for Abdominal pain. ondansetron 2020-0 Yes [id number] 4mg Take 1 Univers 4 mg 1-19 tablet by ity of disintegrat 00:00: mouth [place] ing tablet 00 every 8 Medica l (eight) Branch hours as needed for Nausea and Vomiting (N/V). methylPREDN 2020-0 Yes [id number] Take by Univers ISolone 1-19 mouth ity of (MEDROL, 00:00: SEE-INSTRU [place] as JENNY,) 4 mg 00 CTIONS. Medica l tablets follow Branch package directions sucralfate 2020-0 Yes [id number] 1g Take 1 U nivers 1 gram 1-19 tablet by ity of tablet 00:00: mouth [place] 00 before Medical meals and Branch at bedtime. dicyclomine 2020-0 Yes [id number] 10mg Take 1 Univers (BENTYL) 10 1-19 capsule by it y of mg capsule 00:00: mouth [place] 00 every 8 Medical (eight) Branch hours as needed for Abdominal pain. ondansetron 2020-0 Yes [id number] 4mg Take 1 Univers 4 mg 1-19 tablet by ity of disintegrat 00:00: mouth [place] ing tablet 00 every 8 Medica l (eight) Branch hours as needed for Nausea and Vomiting (N/V). methylPREDN 2019- Yes [id number] Take by Univers ISolone 1-19 mouth ity of (MEDROL, 00:00: SEE-INSTRU [place] as JENNY,) 4 mg 00 CTIONS. Medica l tablets follow Branch package directions sucralfate 2020- No [id number] 1g Take 1 Univers 1 gram - 07-13 tablet by ity of tablet 00:00: 00:00 mouth [place] 00 :00 before Medical meals and Branch at bedtime. omeprazole 2020- No [id number] 20mg Take 1 Univers 20 mg 07-27-19 capsule by ity of capsule 00:00: 05:59 mouth [place] 00 :00 daily for Medical 30 days. Branch metoclopram 2018-07 Yes [id number] 10mg Take 1 Univers nba HCl 10 1-18 tablet by ity of mg tablet 00:00: mouth [place] 00 every 6 Medical (six) Branch hours as needed for Nausea and Vomiting (N/V). metoclopram 2018-07 Yes [id number] 10mg Take 1 Univers nba HCl 10 1-18 tablet by ity of mg tablet 00:00: mouth [place] 00 every 6 Medical (six) Branch hours as needed for Nausea and Vomiting (N/V). metoclopram 2018-07 Yes [id number] 10mg Take 1 Univers nba HCl 10 1-18 tablet by ity of mg tablet 00:00: mouth [place] 00 every 6 Medical (six) Branch hours as needed for Nausea and Vomiting (N/V). metoclopram 2018-07 Yes [id number] 10mg Take 1 Univers nba HCl 10 1-18 tablet by ity of mg tablet 00:00: mouth [place] 00 every 6 Medical (six) Branch hours as needed for Nausea and Vomiting (N/V). metoclopram 2018-07 Yes [id number] 10mg Take 1 Univers nba HCl 10 1-18 tablet by ity of mg tablet 00:00: mouth [place] 00 every 6 Medical (six) Branch hours as needed for Nausea and Vomiting (N/V). metoclopram 2018-07 Yes [id number] 10mg Take 1 Univers nba HCl 10 1-18 tablet by ity of mg tablet 00:00: mouth [place] 00 every 6 Medical (six) Branch hours as needed for Nausea and Vomiting (N/V). metoclopram 2018-07 Yes [id number] 10mg Take 1 Univers nba HCl 10 1-18 tablet by ity of mg tablet 00:00: mouth [place] 00 every 6 Medical (six) Branch hours as needed for Nausea and Vomiting (N/V). metoclopram 2018-07 Yes [id number] 10mg Take 1 Univers nba HCl 10 1-18 tablet by ity of mg tablet 00:00: mouth [place] 00 every 6 Medical (six) Branch hours as needed for Nausea and Vomiting (N/V). metoclopram 2018-07 Yes [id number] 10mg Take 1 Univers nba HCl 10 1-18 tablet by ity of mg tablet 00:00: mouth [place] 00 every 6 Medical (six) Branch hours as needed for Nausea and Vomiting (N/V). metoclopram 2018-07 Yes [id number] 10mg Take 1 Univers nba HCl 10 1-18 tablet by ity of mg tablet 00:00: mouth [place] 00 every 6 Medical (six) Branch hours as needed for Nausea and Vomiting (N/V). metoclopram 2018-07 Yes [id number] 10mg Take 1 Univers nba HCl 10 1-18 tablet by ity of mg tablet 00:00: mouth [place] 00 every 6 Medical (six) Branch hours as needed for Nausea and Vomiting (N/V). metoclopram 2018-07 Yes [id number] 10mg Take 1 Univers nba HCl 10 1-18 tablet by ity of mg tablet 00:00: mouth [place] 00 every 6 Medical (six) Branch hours as needed for Nausea and Vomiting (N/V). dicyclomine 2018-07 2020- No [id number] 20mg Take 1 Univers (BENTYL) 20 1-18 [...] Branch daily. varenicline Yes Take one Un larwence (CHANTIX) 4-11 0.5mg tab ity o f [...] Nystatin Nystatin No 1applic TID [facility] [id number] [facility] UNT/ML / UNT/ML / [facility] Triamcinolo Triamcinolo l ne ne (LUF/LI Acetonide 1 Acetonide 1 V /SA) MG/ML MG/ML Topical Topical Cream Cream Vital Signs Vital Name Observation Time Observation Value Comments Source Systolic blood 2021-12-21 07:00:00 129 mm[Hg] Univer sity pressure [facility] Diastolic blood 2021-12-21 07:00:00 78 mm[Hg] Unive [facility] Heart rate 2021-12-21 07:00:00 71 /min [facility] Respiratory rate 2021-12-21 07:00:00 22 /min [facility] Oxygen saturation in 2021-12-21 07:00:00 96 /min [facility] Arterial blood by [facility] Pulse oximetry [place] Body temperature 2021-12-21 04:49:00 36.83 Pennie [facility] Body height 2021-12-21 04:49:00 162.6 cm [facility] Body weight 2021-12-21 04:49:00 77.111 kg [facility] BMI 2021-12-21 04:49:00 29.18 kg/m2 [facility] Systolic blood 2021-09-30 06:00:00 118 mm[Hg] Univer sity of pressure [facility] Diastolic blood 2021-09-30 06:00:00 78 mm[Hg] Unive rsity of pressure [facility] Heart rate 2021-09-30 06:00:00 89 /min Universi ty of [facility] Respiratory rate 2021-09-30 06:00:00 18 /min Univ ersity of [facility] Oxygen saturation in 2021-09-30 06:00:00 93 /min University of Arterial blood by [facility] Pulse oximetry Branch Body temperature 2021-09-30 05:06:00 36.67 Pennie Univ ersity of [facility] Body height 2021-09-30 05:06:00 162.6 cm Universi ty of [facility] Body weight 2021-09-30 05:06:00 78.019 kg Universi ty of [facility] BMI 2021-09-30 05:06:00 29.52 kg/m2 Universi ty of [facility] Systolic blood 2020-02-16 05:15:00 137 mm[Hg] Univer sity of pressure [facility] Diastolic blood 2020-02-16 05:15:00 93 mm[Hg] Unive rsity of pressure [facility] Heart rate 2020-02-16 05:15:00 79 /min Universi ty of [facility] Respiratory rate 2020-02-16 05:15:00 18 /min Univ ersity of [facility] Oxygen saturation in 2020-02-16 05:15:00 99 /min University of Arterial blood by [facility] Pulse oximetry Branch Body temperature 2020-02-16 01:23:00 37.28 Pennie Univ ersity of [facility] Body weight 2020-02-16 01:23:00 78.019 kg Universi ty of [facility] BMI 2020-02-16 01:23:00 29.52 kg/m2 Universi ty of [facility] Systolic blood 2020-02-06 22:28:00 129 mm[Hg] Univer sity of pressure [facility] Diastolic blood 2020-02-06 22:28:00 93 mm[Hg] Unive rsity of pressure [facility] Heart rate 2020-02-06 22:28:00 100 /min Universi ty of [facility] Body temperature 2020-02-06 22:28:00 36.72 Pennie Univ ersity of [facility] Respiratory rate 2020-02-06 22:28:00 18 /min Univ ersity of [facility] Body weight 2020-02-06 22:28:00 79.379 kg Universi ty of [facility] BMI 2020-02-06 22:28:00 30.04 kg/m2 Universi ty of [facility] Oxygen saturation in 2020-02-06 22:28:00 98 /min University of Arterial blood by [facility] tami Pulse oximetry Branch Systolic blood 2020-01-19 18:07:00 125 mm[Hg] Univer sity of pressure [facility] Diastolic blood 2020-01-19 18:07:00 83 mm[Hg] Unive rsity of pressure [facility] Heart rate 2020-01-19 18:07:00 83 /min Universi ty of [facility] Body temperature 2020-01-19 18:07:00 37.11 Pennie Univ ersity of [facility] Respiratory rate 2020-01-19 18:07:00 17 /min Univ ersity of [facility] Branch Body height 2020-01-19 18:07:00 162.6 cm Universi ty of [facility] Body weight 2020-01-19 18:07:00 79.379 kg Universi ty of [facility] BMI 2020-01-19 18:07:00 30.04 kg/m2 Universi ty of [facility] Oxygen saturation in 2020-01-19 18:07:00 98 /min University of Arterial blood by [facility] Pulse oximetry Branch Systolic blood 2019-09-20 00:00:00 124 mm[Hg] Univer sity of pressure [facility] Diastolic blood 2019-09-20 00:00:00 75 mm[Hg] Unive rsity of pressure [facility] Heart rate 2019-09-20 00:00:00 74 /min Universi ty of [facility] Respiratory rate 2019-09-20 00:00:00 16 /min Univ ersity of [facility] Oxygen saturation in 2019-09-20 00:00:00 95 /min University of Arterial blood by [facility] Pulse oximetry Branch Body temperature 2019-09-19 22:27:00 36.56 Pennie Univ ersity of [facility] Body weight 2019-09-19 22:27:00 81.647 kg Universi ty of [facility] BMI 2019-09-19 22:27:00 30.90 kg/m2 Universi ty of [facility] Branch Systolic blood 2019-07-28 03:49:00 123 mm[Hg] Univer sity of pressure [facility] Diastolic blood 2019-07-28 03:49:00 90 mm[Hg] Unive rsity of pressure [facility] Heart rate 2019-07-28 03:49:00 72 /min [facility] Body temperature 2019-07-28 03:49:00 36.56 [place] [facility] 2019-07-28 03:49:00 18 /min [facility] in 2019-07-28 03:49:00 95 /min [facility] Arterial blood by [facility] Pulse oximetry [place] Body height 2019-07-28 00:55:00 162.6 cm [facility] Body weight 2019-07-28 00:55:00 81.647 kg [facility] BMI 2019-07-28 00:55:00 30.90 kg/m2 [facility] Respiratory Rate 2017-06-12 19:50:00 18 /min [facility] (LUF/ELISABETH/SA) O2% BldC Oximetry 2017-06-12 19:50:00 98 % [facility] (LUF/ELISABETH/SA) BP Systolic 2017-06-12 19:50:00 128 mm[Hg] [facility] (LUF/ELISABETH/SA) BP Diastolic 2017-06-12 19:50:00 68 mm[Hg] [facility] (LUF/ELISABETH/SA) Body Temperature 2017-06-12 17:02:00 98 F [facility] (LUF/ELISABETH/SA) Height 2017-06-12 17:02:00 65 in [facility] (LUF/ELISABETH/SA) Weight Measured 2017-06-12 17:02:00 174.98 lbs [facility] S t [facility] (LUF/ELISABETH/SA) BMI (Body Mass 2017-06-12 17:02:[address] [facility] [address] [facility]) [facility] (LUF/ELISABETH/SA) Procedures Procedure Date / Time Performing Clinician Source Performed URINALYSIS 2021-12-21 05:50:00 Ronald Shields o f [facility] LIPASE 2021-12-21 05:41:00 Ronald Shields [facility] COMP. METABOLIC PANEL 2021-12-21 05:41:00 Ronald Shields [facility] ([id number]) Medical Branch CBC WITH DIFF 2021-12-21 05:41:00 Ronald Shields [facility] XR CHEST 2 VW 2021-12-21 05:28:06 Alyson [facility] CONSENT/REFUSAL FOR 2021-12-21 04:31:14 Doctor Unassigned, No [facility] Medical Branch XR CHEST 2 VW 2021-09-30 06:06:29 Garth Bautista [facility] CT ABDOMEN PELVIS W 2021-09-30 06:04:14 Garth Bautista [facility] Medical Branch COVID-19 (ID NOW RAPID 2021-09-30 05:20:00 Garth Bautista [facility] TESTING) Medical Branch RAPID INFLUENZA A/B 2021-09-30 05:19:00 Garth Bautista [facility] URINALYSIS 2021-09-30 05:18:00 Garth Bautista [facility] LIPASE 2021-09-30 05:14:00 Garth Bautista [facility] TROPONIN I 2021-09-30 05:14:00 Garth Bautista [facility] COMP. METABOLIC PANEL 2021-09-30 05:14:00 Garth Bautista [facility] ([id number]) Medical Branch CBC WITH DIFF 2021-09-30 05:14:00 Garth Bautista [facility] NOTICE OF PRIVACY 2021-09-30 04:58:38 Doctor Unassigned, No [facility] PRACTICES Name Medical Branch CONSENT/REFUSAL FOR 2021-09-30 04:58:23 Doctor Unassigned, No [facility] Name Medical Branch CT ABDOMEN PELVIS W 2020-02-16 02:52:29 Jamaal Trotter [facility] CONTRAST Medical Branch LIPASE 2020-02-16 02:01:00 Jamaal Trotter [facility] HEPATIC FUNCTION PANEL 2020-02-16 02:01:00 Jamaal Trotter [facility] ([id number]) (ALB,T.PRO,BILI Medical Branch T,BU/BC,ALT,AST,ALK PHOS) BASIC METABOLIC PANEL 2020-02-16 02:01:00 Jamaal Trotter [facility] (NA, K, CL, CO2, Medical Branch GLUCOSE, BUN, CREATININE, CA) CBC WITH DIFF 2020-02-16 02:01:00 Jamaal Trotter [facility] URINALYSIS 2020-02-16 02:01:00 Jamaal Trotter [facility] CONSENT/REFUSAL FOR 2020-02-06 22:17:29 Doctor Unassigned, No [facility] [place] XR KUB 2019-09-20 00:34:59 Swati Limon [facility] COMP. METABOLIC PANEL 2019-09-20 00:13:00 [facility] ([id number] Medical [facility] CBC WITH DIFFERENTIAL 2019-09-20 00:13:00 [facility] 2019-09-20 00:13:00 Swati Limon [facility] NOTICE OF PRIVACY 2019-09-19 22:17:17 Doctor Unassigned, No Univ [facility] PRACTICES Name Medical Branch CONSENT/REFUSAL FOR 2019-09-19 22:17:05 Doctor Unassigned, No [facility] Name Medical Branch CT ABDOMEN PELVIS W 2019-07-28 02:46:48 Sabi Berman [facility] CONTRAST Medical Branch LIPASE 2019-07-28 01:34:00 Sabi Berman [facility] COMP. METABOLIC PANEL 2019-07-28 01:34:00 Sabi Berman [facility] ([id number]) Medical Branch CBC WITH DIFFERENTIAL 2019-07-28 01:34:00 Sabi Berman [facility] CONSENT/REFUSAL FOR 2019-07-28 00:45:36 Doctor Unassigned, No [facility] Name Medical Branch Encounters Start End Encounter Admission Attending Care Care Encounter Source Date/Time Date/Time Type Type Clinicians Facility Department ID 2021-05-06 Emergency [facility] [id number] Univers 11:24:52 ity of [facility] 2021-05-06 Emergency [facility] [id number] Univers 10:10:15 ity [facility] 2021-12-20 2021-12-21 Emergency X ALYSON, [facility] ERT [id number] Univers 23:54:00 02:13:00 RONALD ity [facility] 2021-12-20 2021-12-21 Emergency [facility] [id number] Univers 23:54:00 02:13:00 Ronald WEST [id number] ity [facility] [id number] [facility] [phone] [facility] 084 [place] 2021-11-16 2021-11-16 [facility] [id number] Univers 00:00:00 00:00:00 Xiang SPECIALTY [id number] ity [facility] 4.2.7.2.686 [facility] AT [phone] Al casiesterling OROURKE 2 [facility] 2021-11-15 2021-11-15 Outpatient R [facility] [id number] Univers 09:00:00 09:00:00 [id number] ity of [facility] 2021-11-15 2021-11-15 Outpatient R [facility] [id number] Univers 09:00:00 09:00:00 ity of [facility] 2021-10-26 2021-10-26 Inpatient EL Aguda, HCAPM RADI [id number] [facility] 11:00:00 11:00:00 Rosalva [id number] [facility] 2021-10-18 2021-10-18 Outpatient Aguda, HCAPM HCAPM [id number] [facility] 08:05:00 08:05:00 Rosalva [id number] [facility] 2021-09-30 2021-09-30 Emergency [facility] [id number] Univers 00:02:00 01:41:00 GARTH ity [facility] 2021-09-30 2021-09-30 Emergency Lily, [facility] [id number] Univers 00:02:00 01:41:00 Garth WEST [id number] i ty of [facility] 4.2.7.2.686 [facility] [phone] [address] 2021-06-22 2021-06-22 Outpatient R [facility] [id number] Univers 20:15:00 20:15:00 [id number] ity [facility] 2021-06-22 2021-06-22 Outpatient R UNKNOWN, [facility] [id number] Univers 20:15:00 20:15:00 ATTENDING ity [facility] 2020-02-15 2020-02-16 Emergency Jamaal Trotter [facility] [id number] Univers 20:25:00 00:23:00 T Kelsi [id number] i ty of [place] 4.2.7.2.686 [facility] [phone] [address] 2020-02-06 2020-02-06 Emergency Christine, [facility] [id number] Univers 17:30:03 18:06:00 Jamaal [place] [id number] i ty of [place] 4.2.7.2.686 [facility] [id number] [address] 2020-02-06 2020-02-06 Orders Doctor MAKAYLA [id number] Univers 00:00:00 00:00:00 Only Unassigned, CHARLA [id number] ity of [place] [facility] 4.2.7.2.686 Kristian as [phone] [address] 2020-02-03 2020-02-03 Telephone Pob1, Acute [facility] [id number] Univers 00:00:00 00:00:00 [facility] [id number] ity of [place] 4.2.7.2.686 Kristian as Professio [phone] [address] Office [facility] 2020-01-19 2020-01-19 Urgent Pob1, Acute Care Clinic [facility] 1. [id number] Univers 13:01:51 13:40:36 Gregoria Farrell [facility] [id number] ity of [place] 4.2.7.2.686 [facility] [phone] [address] 2020-01-19 2020-01-19 Outpatient R [facility] [id number] Univers 13:00:00 13:00:00 [id number] ity of [facility] 2020-01-19 2020-01-19 Outpatient R [facility] [id number] Univers 13:00:00 13:00:00 ity of [facility] 2020-01-19 2020-01-19 Letter Doctor BENAVIDES 1.2.840.114 [id number] Univers 00:00:00 00:00:00 (Out) UnassignedCHARLA 350.1.13.10 ity of [facility] 4.2.7.2.686 Kristian as [phone] [address] 2020-01-09 2020-01-09 Outpatient R [facility] [id number] Univers 09:40:00 09:40:00 [id number] ity of [facility] 2020-01-09 2020-01-09 Outpatient R [facility] [id number] Univers 09:40:00 09:40:00 ity of [facility] 2019-09-19 2019-09-19 Emergency X MARSHA [facility] ERT [id number] Univers 18:38:25 20:38:00 ABRAHANO ity of [facility] 2019-09-19 2019-09-19 Emergency [facility] 1.2.840.114 [id number] Univers 18:38:25 20:38:00 Swati [place] [id number] ity of [place] 4.2.7.2.686 [facility] [phone] [address] 2019-09-19 2019-09-19 Orders Doctor MAKAYLA 1.2.840.114 [id number] Univers 00:00:00 00:00:00 Only Unassigned, CHARLA [id number] ity of [facility] 4.2.7.2.686 Kristian [phone] [facility] 009 Branch 2019-07-27 2019-07-27 Emergency Singer KYDANIEL [id number] Univers 18:49:37 21:53:00 Sabi [place] 350.1.13.10 i ty of [place] 4.2.7.2.686 [facility] [phone] [facility] 084 Branch 2017-06-12 2017-06-12 STRAIN 1 RENNER, [facility] [id number] 16:57:00 19:55:00 [facility] FASCIA , [address] [facility] ([facility]/ ST, PATEL V/SA) [place] [address] Results Test Description Test Time Test Comments Results Result Comments Source COMP. METABOLIC PANEL ([id number]) 2021-12-21 06:14:33 Test Item Value Reference Range Interpretation Comme nts NA (test code = 1412842299) 136 mmol/L 135-145 K (test code = 4056573521) 4.3 mmol/L 3.5-5.0 CL (test code = 0861144177) 104 mmol/L 98-108 CO2 TOTAL (test code = 23 mmol/L 23-31 8291808784) AGAP (test code = 6790761437) 2-16 BUN (test code = 6722792770) 18 mg/dL 7-23 GLUCOSE (test code = 6780061894) 103 mg/dL 70-110 CREATININE (test code = 1.08 mg/dL 0.60-1.25 1338824751) TOTAL BILI (test code = 0.5 mg/dL 0.1-1.0 8937773336) CALCIUM (test code = 7270961716) 9.5 mg/dL 8.6-10.6 T PROTEIN (test code = 7.2 g/dL 6.3-8.2 7279141686) ALBUMIN (test code = 7486668128) 4.8 g/dL 3.5-5.0 ALK PHOS (test code = 6095950733) 77 U/L 34-122 ALTv (test code = 1742-6) 29 U/L 5-50 AST(SGOT) (test code = 23 U/L 13-40 7022426322) eGFR (test code = 1397263948) mL/min/1.73m2 [place] (test code = EV[place]) Association [...] or urine or abnormalities in imaging tests). [facility]33 Test Item Value Reference Range Interpretation Comments LIPASE (test code = 0711654658) 108 U/L 0-220 Lab Interpretation (test code = Normal 15629-9) [facility] [id number] 06:00:12 Test Item Value Reference Range Interpretation Comments WBC (test code = See_Comment [Automated 2690-2) message] The sy stem which generated this [...] (test code = 37.2 fL 38.5-51.6 L 91939-0) RDW-CV (test code = 12.0 % 12.1-15.4 L 788-0) PLT (test code = See_Comment [Automated 777-3) message] The sy stem which generated this result transmitted reference range : 150 - 328 10*3/ ?L. The reference r abhijit was not used to interpret this result as normal/abnormal . MPV (test code = 9.3 fL 9.8-13.0 L 61013-6) NRBC/100 WBC (test See_Comment [Automat ed code = 4852794338) message] The system which generated this result transmitted reference range : 0.0 - 10.0 /100 WBCs. The refer ence range was not u sed to interpret th is result as normal/abnormal . NRBC x10^3 (test code <0.01 See_Comment [Auto mated = 6039095654) message] The s ystem which generated this result transmitted reference range : 10*3/?L. The reference range was not used to interpret this result as normal/abnormal . GRAN MAT (NEUT) % 56.2 % (test code = 770-8) IMM GRAN % (test code 0.40 % = 9222315554) LYMPH % (test code = 34.8 % 736-9) MONO % (test code = 7.7 % 5905-5) EOS % (test code = 0.6 % 713-8) BASO % (test code = 0.3 % 706-2) GRAN MAT x10^3(ANC) 5.73 10*3/uL 1.99-6.95 (test code = 9462152385) IMM GRAN x10^3 (test 0.04 10*3/uL 0.00-0.06 code = 1795650613) LYMPH x10^3 (test code 3.55 10*3/uL 1.09-3.23 H = 731-0) MONO x10^3 (test code 0.79 10*3/uL 0.36-1.02 = 742-7) EOS x10^3 (test code = 0.06 10*3/uL 0.06-0.53 711-2) BASO x10^3 (test code 0.03 10*3/uL 0.01-0.09 = 704-7) Lab Interpretation Abnormal (test code = 70548-5) [id number] 05:53:09 Test Item Value Reference Interpretation Comments Range TROPONIN I (test 0.006 ng/mL See_Comment [Automated code = 9862130764) message] The system which generated this result [...] biotin. Lab Interpretation Normal (test code = 24438-7) [facility] (70409)2021-09-30 05:41:27 Test Item Value Reference Range Interpretation Comments NA (test code = 138 mmol/L 135-145 2483719253) K (test code = 4.2 mmol/L 3.5-5.0 7008754556) CL (test code = 106 mmol/L 98-108 4796675946) CO2 TOTAL (test code = 21 mmol/L 23-31 L 0892247189) AGAP (test code = 2-16 7250569999) BUN (test code = 12 mg/dL 7-23 0170174366) GLUCOSE (test code = 100 mg/dL 70-110 7468034728) CREATININE (test code = 0.93 mg/dL 0.60-1.25 8928396690) TOTAL BILI (test code = 0.5 mg/dL 0.1-1.7 4821145886) CALCIUM (test code = 9.3 mg/dL 8.6-10.6 0056496672) T PROTEIN (test code = 7.3 g/dL 6.3-8.2 1793309582) ALBUMIN (test code = 4.7 g/dL 3.5-5.0 2472928191) ALK PHOS (test code = 79 U/L 34-122 7992986902) ALTv (test code = 24 U/L 5-50 1742-6) AST(SGOT) (test code = 23 U/L 13-40 9300618041) eGFR (test code = mL/min/1.73m2 0280056282) [place] (test code = [place]) Association of [...] tests). Lab Interpretation Abnormal (test code = 85371-3) [facility] 05:41:27 Test Item Value Reference Range Interpretation Comments LIPASE (test code = 3291181410) 98 U/L 0-220 Lab Interpretation (test code = Normal 50581-7) [facility] WITH [id number] 05:27:48 Test Item Value Reference Range Interpretation Comments WBC (test code = See_Comment [Automated 9690-2) message] The sy stem which generated this result transmitted reference range : 4.20 - 10.70 10*3/?L. The reference range was not used to interpret this result as normal/abnormal . RBC (test code = See_Comment [Automated 329-8) message] The sy stem which generated this [...] RDW-SD (test code = 38.5 fL 38.5-51.6 53873-3) RDW-CV (test code = 11.9 % 12.1-15.4 L 788-0) PLT (test code = See_Comment [Automated 997-3) message] The sy stem which generated this result transmitted reference range : 150 - 328 10*3/ ?L. The reference r abhijit was not used to interpret this result as normal/abnormal . MPV (test code = 9.8 fL 9.8-13.0 40961-4) NRBC/100 WBC (test See_Comment [Automat ed code = 2321769769) message] The system which generated this result transmitted reference range : 0.0 - 10.0 /100 WBCs. The refer ence range was not u sed to interpret th is result as normal/abnormal . NRBC x10^3 (test code <0.01 See_Comment [Auto mated = 3689463437) message] The s ystem which generated this result transmitted reference range : 10*3/?L. The reference range was not used to interpret this result as normal/abnormal . GRAN MAT (NEUT) % 54.4 % (test code = 770-8) IMM GRAN % (test code 0.30 % = 9276866620) LYMPH % (test code = 37.1 % 736-9) MONO % (test code = 7.3 % 5905-5) EOS % (test code = 0.6 % 713-8) BASO % (test code = 0.3 % 706-2) GRAN MAT x10^3(ANC) 5.34 10*3/uL 1.99-6.95 (test code = 0241458211) IMM GRAN x10^3 (test 0.03 10*3/uL 0.00-0.06 code = 5875143989) LYMPH x10^3 (test code 3.64 10*3/uL 1.09-3.23 H = 731-0) MONO x10^3 (test code 0.72 10*3/uL 0.36-1.02 = 742-7) EOS x10^3 (test code = 0.06 10*3/uL 0.06-0.53 711-2) BASO x10^3 (test code 0.03 10*3/uL 0.01-0.09 = 704-7) Lab Interpretation Abnormal (test code = 03470-8) [facility] P[facility] W [id number] 04:57:37Impression: No acute abnormalities evident. RL: 460 [...] No acute abnormalities evident.RL: 460End of Report [facility] (NA, K, CL, CO2, GLUCOSE, BUN, CREATININE, CA)2020-02-16 02:37:00 Test Item Value Reference Range Interpretation Comments NA (test code = 138 mmol/L 135-145 8925562833) K (test code = 3.8 mmol/L 3.5-5 9465800690) CL (test code = 105 mmol/L 98-108 3619845249) CO2 TOTAL (test code = 25 mmol/L 23-31 8697269344) AGAP (test code = 2-16 4728882904) BUN (test code = 11 mg/dL 7-23 4550298312) GLUCOSE (test code = 111 mg/dL 70-110 H 0458796875) CREATININE (test code = 0.95 mg/dL 0.6-1.25 6881875707) CALCIUM (test code = 9.4 mg/dL 8.6-10.6 5967763115) eGFR Calculation mL/min/1.73m2 (Non-) (test code = 1295271141) eGFR Calculation mL/min/1.73m2 () (test code = 8715052003) [place] (test code = [place]) Association of [...] tests). Lab Interpretation Abnormal (test code = 86555-5) [facility] (ALB, T.PRO, BILI T, BU/BC, ALT, AST, ALK PHOS)2020-02-16 02:37:00 Test Item Value Reference Range Interpretation Comments TOTAL BILI (test code = 2055060446) 0.2 mg/dL 0.1-1.1 BILI UNCON (test code = 7497760249) 0.3 mg/dL 0.1-1.1 BILI CONJ (test code = 6971792556) 0.0 mg/dL 0-0.3 T PROTEIN (test code = 5496552921) 7.4 g/dL 6.3-8.2 ALBUMIN (test code = 4158334407) 4.5 g/dL 3.5-5 ALK PHOS (test code = 6861502987) 70 U/L 34-122 ALTv (test code = 1742-6) 19 U/L 5-50 AST(SGOT) (test code = 2545386023) 22 U/L 13-40 Lab Interpretation (test code = Normal 31446-1) [facility] [id number] 02:37:00 Test Item Value Reference Range Interpretation Comments LIPASE (test code = 9432793969) 71 U/L 0-220 Lab Interpretation (test code = Normal 37962-1) [facility] Dallas[facility]inalysis2020-08-10 02:31:00 Test Item Value Reference Range Interpretation Comments APPEARANCE (test code = Clear Clear 9319847847) COLOR (test code = Yellow Yellow 0542511424) PH (test code = 4.8-8.0 1129391768) SP GRAVITY (test code = 1.003-1.030 0522121074) GLU U QUAL (test code = Normal Normal 9112818079) BLOOD (test code = Negative Negative 5328445177) KETONES (test code = 5 mg/dL Negative A 3904108928) PROTEIN (test code = Negative Negative 2887-8) UROBILIN (test code = 2.0 mg/dL Normal A 8718218988) BILIRUBIN (test code = Negative Negative 6196940174) NITRITE (test code = Negative Negative 8827852043) LEUK EMMANUEL (test code = Negative Negative 7177396334) RBC/HPF (test code = <1 See_Comment [Autom ated message] 8117153853) The system [employer] generated this result transmit clay reference range : 0 - 3 HPF. The refe rence range was not u sed to interpret th is result as normal/abnormal . WBC/HPF (test code = <1 See_Comment [Autom ated message] 4686598173) The system [employer] generated this result transmit clay reference range : 0 - 5 HPF. The refe rence range was not u sed to interpret th is result as normal/abnormal . BACTERIA (test code = Negative Negative 4702196098) MUCOUS (test code = Slight Negative LPF A 6633924815) SQ EPITH (test code = <1 HPF 5639323328) Lab Interpretation (test Abnormal code = 46647-4) [facility] with [id number] 02:23:00 Test Item Value Reference Range Interpretation [...] (test code = 35.2 fL 38.5-51.6 L 58159-4) RDW-CV (test code = 11.3 % 12.1-15.4 L 788-0) PLT (test code = See_Comment [Automated 777-3) message] The sy stem which generated this result transmitted reference range : 150 - 328 10*3/ ?L. The reference r abhijit was not used to interpret this result as normal/abnormal . MPV (test code = 10.0 fL 9.8-13 27316-9) NRBC/100 WBC (test See_Comment [Automat ed code = 4482471210) message] The system which generated this result transmitted reference range : 0.0 - 10.0 /100 WBCs. The refer ence range was not u sed to interpret th is result as normal/abnormal . NRBC x10^3 (test code <0.01 See_Comment [Auto mated = 1921413885) message] The s ystem which generated this result transmitted reference range : 10*3/?L. The reference range was not used to interpret this result as normal/abnormal . GRAN MAT (NEUT) % 60.4 % (test code = 770-8) IMM GRAN % (test code 0.10 % = 5375042583) LYMPH % (test code = 32.6 % 736-9) MONO % (test code = 6.3 % 5905-5) EOS % (test code = 0.5 % 713-8) BASO % (test code = 0.1 % 706-2) GRAN MAT x10^3(ANC) 5.29 10*3/uL 1.99-6.95 (test code = 2109419266) IMM GRAN x10^3 (test <0.03 0-0.06 code = 4939457084) LYMPH x10^3 (test code 2.85 10*3/uL 1.09-3.23 = 731-0) MONO x10^3 (test code 0.55 10*3/uL 0.36-1.02 = 742-7) EOS x10^3 (test code = 0.04 10*3/uL 0.06-0.53 L 711-2) BASO x10^3 (test code <0.03 0.01-0.09 = 704-7) Lab Interpretation Abnormal (test code = 57003-8) [facility] 00:48:00 Test Item Value Reference Range Interpretation Comments APPEARANCE (test code = Clear Clear 3120841289) COLOR (test code = Straw Yellow A 0600916364) PH (test code = 4.8-8.0 2667443915) SP GRAVITY (test code = 1.003-1.030 4780070364) GLU U QUAL (test code = Normal Normal 5725184816) BLOOD (test code = Negative Negative 5405967119) KETONES (test code = Negative Negative 7138819885) PROTEIN (test code = Negative Negative 2887-8) UROBILIN (test code = Normal Normal 3140357031) BILIRUBIN (test code = Negative Negative 8220131884) NITRITE (test code = Negative Negative 9747214171) LEUK EMMANUEL (test code = Negative Negative 8702903643) RBC/HPF (test code = See_Comment [Autom ated message] 9617457815) The system [employer] generated this result transmitted ref erence range: 0 - 3 HP F. The reference range was not used to int erpret this result as normal/abnormal . WBC/HPF (test code = <1 See_Comment [Autom ated message] 7577982563) The system [employer] generated this result transmitted ref erence range: 0 - 5 HP F. The reference range was not used to int erpret this result as normal/abnormal . BACTERIA (test code = Negative Negative 1757983919) MUCOUS (test code = Slight Negative LPF A 8175097290) Lab Interpretation (test Abnormal code = 40841-8) [facility]91716[facility]2019-09-20 00:48:00 Test Item Value Reference Range Interpretation Comments NA (test code = 141 mmol/L 135-145 3050583875) K (test code = 3.9 mmol/L 3.5-5 6493108688) CL (test code = 106 mmol/L 98-108 9768504807) CO2 TOTAL (test code = 25 mmol/L 23-31 4714328631) AGAP (test code = 2-16 8323659034) BUN (test code = 14 mg/dL 7-23 7372201015) GLUCOSE (test code = 101 mg/dL 70-110 3515080373) CREATININE (test code 1.03 mg/dL 0.6-1.25 = 5209619468) TOTAL BILI (test code 0.3 mg/dL 0.1-1.1 = 1665572024) CALCIUM (test code = 9.9 mg/dL 8.6-10.6 0817127020) T PROTEIN (test code = 6.8 g/dL 6.3-8.2 5324288897) ALBUMIN (test code = 4.7 g/dL 3.5-5 6482481724) ALK PHOS (test code = 63 U/L 34-122 1153666378) ALTv (test code = 20 U/L 5-50 1742-6) AST(SGOT) (test code = 20 U/L 13-40 2641465289) eGFR Calculation mL/min/1.73m2 (Non-) (test code = 0115503908) eGFR Calculation mL/min/1.73m2 () (test code = 0122100762) [place] (test code = [place]) Association of [...] or urine or abnormalities in imaging tests). [facility] WITH [id number] 00:31:00 Test Item Value Reference Range Interpretation [...] (test code = 38.2 fL 38.5-51.6 L 01331-6) RDW-CV (test code = 12.0 % 12.1-15.4 L 788-0) PLT (test code = See_Comment [Automated 777-3) message] The sy stem which generated this result transmitted reference range : 150 - 328 10*3/ ?L. The reference r abhijit was not used to interpret this result as normal/abnormal . MPV (test code = 10.0 fL 9.8-13 39265-2) NRBC/100 WBC (test See_Comment [Automat ed code = [id number]) message] The system which generated this result transmitted reference range : 0.0 - 10.0 /100 WBCs. The refer ence range was not u sed to interpret th is result as normal/abnormal . NRBC x10^3 (test code <0.01 See_Comment [Auto mated = [id number]) message] The s ystem which generated this result transmitted reference range : 10*3/?L. The reference range was not used to interpret this result as normal/abnormal . GRAN MAT (NEUT) % 60.6 % (test code = 770-8) IMM GRAN % (test code 0.40 % = [id number]) LYMPH % (test code = 31.9 % 736-9) MONO % (test code = 6.1 % 5905-5) EOS % (test code = 0.8 % 713-8) BASO % (test code = 0.2 % 706-2) GRAN MAT x10^3(ANC) 5.02 10*3/uL 1.99-6.95 (test code = [id number]) IMM GRAN x10^3 (test 0.03 10*3/uL 0-0.06 code = 8073245057) LYMPH x10^3 (test code 2.65 10*3/uL 1.09-3.23 = 731-0) MONO x10^3 (test code 0.51 10*3/uL 0.36-1.02 = 742-7) EOS x10^3 (test code = 0.07 10*3/uL 0.06-0.53 711-2) BASO x10^3 (test code <0.03 0.01-0.09 = 704-7) Lab Interpretation Abnormal (test code = 13211-6) [facility] [id number] 02:58:35Impression: 1. Fluid-filled, nondilated distal small bowel loops with mucosal foldthickening, suggestive of enteritis.2. Normal appendix. No free air or free fluid. RL: [id number]: [id number] End of Report Exam: CT Abdomen and [...] no pelvic adenopathy. Osseous structures are unremarkable. [facility], Radiant Results Inft User - 07/27/2019 8:59 [...] No free air or free fluid.RL: 2824AFC: [id number] of Report [facility]. METABOLIC PANEL (85948)2019-07-28 02:28:00 Test Item Value Reference Range Interpretation Comments NA (test code = 140 mmol/L 135-145 2148807889) K (test code = 3.8 mmol/L 3.5-5 4101074548) CL (test code = 107 mmol/L 98-108 1482938332) CO2 TOTAL (test code = 24 mmol/L 23-31 6617128264) AGAP (test code = 2-16 5054122250) BUN (test code = 14 mg/dL 7-23 0572387278) GLUCOSE (test code = 119 mg/dL 70-110 H 1982342816) CREATININE (test code = 1.03 mg/dL 0.6-1.25 3393966492) TOTAL BILI (test code = 0.2 mg/dL 0.1-1.1 8173437379) CALCIUM (test code = 9.6 mg/dL 8.6-10.6 7463284477) T PROTEIN (test code = 7.8 g/dL 6.3-8.2 5133930255) ALBUMIN (test code = 4.9 g/dL 3.5-5 2609152496) ALK PHOS (test code = 69 U/L 34-122 7787117466) ALTv (test code = 47 U/L 5-50 1742-6) AST(SGOT) (test code = 30 U/L 13-40 1691554375) eGFR Calculation mL/min/1.73m2 (Non-) (test code = 7121911194) eGFR Calculation mL/min/1.73m2 () (test code = 6850525049) [place] (test code = EVERT[place]) Association of [...] tests). Lab Interpretation Abnormal (test code = 14684-8) [facility]00 Test Item Value Reference Range Interpretation Comments LIPASE (test code = 8304785147) 103 U/L 0-220 Lab Interpretation (test code = Normal 78071-9) [facility] WITH [id number] 02:09:00 Test Item Value Reference Range Interpretation Comments WBC (test code = See_Comment [Automated 1659-2) message] The sy stem which generated this result transmitted reference range : 4.20 - 10.70 10*3/?L. The reference range was not used to interpret this result as normal/abnormal . RBC (test code = See_Comment [Automated 889-5) message] The sy stem which generated this [...] (test code = 35.8 fL 38.5-51.6 L 76496-9) RDW-CV (test code = 11.8 % 12.1-15.4 L 788-0) PLT (test code = See_Comment [Automated 777-3) message] The sy stem which generated this result transmitted reference range : 150 - 328 10*3/ ?L. The reference r abhijit was not used to interpret this result as normal/abnormal . MPV (test code = 10.2 fL 9.8-13 69145-4) NRBC/100 WBC (test See_Comment [Automat ed code = 1338962308) message] The system which generated this result transmitted reference range : 0.0 - 10.0 /100 WBCs. The refer ence range was not u sed to interpret th is result as normal/abnormal . NRBC x10^3 (test code <0.01 See_Comment [Auto mated = 7871905859) message] The s ystem which generated this result transmitted reference range : 10*3/?L. The reference range was not used to interpret this result as normal/abnormal . GRAN MAT (NEUT) % 59.2 % (test code = 770-8) IMM GRAN % (test code 0.20 % = 9321143074) LYMPH % (test code = 31.1 % 736-9) MONO % (test code = 8.5 % 5905-5) EOS % (test code = 0.8 % 713-8) BASO % (test code = 0.2 % 706-2) GRAN MAT x10^3(ANC) 5.01 10*3/uL 1.99-6.95 (test code = 6702819646) IMM GRAN x10^3 (test <0.03 0-0.06 code = 1981904933) LYMPH x10^3 (test code 2.63 10*3/uL 1.09-3.23 = 731-0) MONO x10^3 (test code 0.72 10*3/uL 0.36-1.02 = 742-7) EOS x10^3 (test code = 0.07 10*3/uL 0.06-0.53 711-2) BASO x10^3 (test code <0.03 0.01-0.09 = 704-7) Lab Interpretation Abnormal (test code = 47906-6) [facility]/O [id number] 19:08:00NPO 4 hours. Do not withhold medsProcedure: CT ABDOMEN/PELVIS W/O CONTRASTExam Date: 06/12/2017 5:36 PMOrdering Provider: BLANCA Rodriguez Indication: low abd painComparison: NoneTechnique: Using a [...] MD 06/12/20177:01 PMDictated By: ENZO CABRERA.Date: 06/12/2017 19:[id number] 18:51:00 Test Item Value Reference Range Interpretation [...] ( 4 - SerumAlbumin)] EGFR if >60 Mal[place]ian (test code mL/min/1.73m\\ = EGFRAA) S\\2 EGFR if Non- >60 Estimate d Glomerular Maldivian (test code mL/min/1.73m\\ Filtrat ion Rate (eGFR) [...] 11 code = GAP) CBC WITH AUTO [id number] 18:02:00 Test Item Value Reference Range Interpretation [...] = 0 /100WBC 0-2 NRBC_AUTO) URINALYSIS WITHOUT [id number] 17:32:00 Test Item Value Reference Range Interpretation Comments Color (test code = UCOLR) Yellow Lt. Yellow A Clarity (test code = UCLAR) Clear Glucose (test code = UGLUC) Negative Negative N Bilirubin (test code = UBILI) Negative Negative N Ketones (test code = UKET) Negative Negative N Specific Staples (test code = 1.015 1.005-1.030 A USPGR) [...]
== END 2022-02-21 22:11 | disposition left against medical advice (07) ==
LOC: ER 21:30
DX: Z02.9 Encounter for administrative examinations, unspecified (principal)

== ENCOUNTER 2022-08-04 19:44 | Emergency (ER) | payer OTHER ==
--- OUTSIDE RECORDS SUMMARY | 2022-08-04 19:52 | XMS REPORT | Continuity of Care Document ---
:1990 Author Organization [facility] t Address [address] [place] [address] Care Team Providers Name Role Phone Sariah Carr Primary Care Physician [phone] Rosario Ely Attending Clinician Unknown, Attending Attending Clinician Unavailable UNKNOWN, ATTENDING Attending Clinician Unavailable ROSARIO CLAUDIO Attending Clinician Unavailable Doctor Unassigned, [place] Attending Clinician Unavailable RONALD SHIELDS Attending Clinician Unavailable Ronald Shields MD Attending Clinician Xiang Benavides MD Attending Clinician Rosalva Zelaya Attending Clinician Unavailable GARTH BAUTISTA Attending Clinician Unavailable Garth Albarran Attending Clinician Jamaal Padilla Attending Clinician Jamaal Louise Attending Clinician [facility] Attending Clinician Unavailable Gregoria Jones Attending Clinician SWATI LIMON Attending Clinician Unavailable Swati Beckman Attending Clinician Berman DO Sabi Attending Clinician BLANCA RENNER Attending Clinician Unavailable RONALD SHIELDS Admitting Clinician Unavailable Physician, No Primary or Family Admitting Clinician UnavailGARTH Randhawa Admitting Clinician Unavailable SWATI LIMON Admitting Clinician Unavailable BLANCA RENNER Admitting Clinician Unavailable Payers Payer Name Policy Type Policy Number Effective Date Expiration Date S vonnie [employer] [place] - [id number] 2019 OUT OF STATE 00:00:00 [facility] [id number] 2017 CHOICE MEDICAID 00:00:00 Problems Condition Condition [...] rs active active ity of problems problems [place] [facility] [place] Allergies, Adverse Reactions, Alerts Allergy Allergy Status Severity Reaction(s) Onset Inactive Treating Comm ents Source Name Type Date Date Clinician [place] - Propensi Active Intraven ty to 7-10 ous adverse 00:00: reaction 00 to drug Latex Propensi Active Rash Univers ty to 4-11 ity of adverse 00:00: [place] reaction 00 Medical s Branch LATEX DRUG Active Rash Univers INGREDI 411 ity of 00:00: [place] 00 Medical Branch No Known DA Active U [facility] Allergie 24 [place] s 00:00: d 00 [facility] SHRIMP DRUG Active Anaphylaxis Unive rs INGREDI 03-30 ity of 00:00: [place] 00 Medical [place] Shrimp Propensi Active Anaphylaxis Pt Uni vers ty to 03-30 reports ity of adverse 00:00: it is [place] reaction 00 only raw Medica l s shrimp. Branch Pt reports he can eat cooked shrimp. Social History Social Habit Start Date Stop Date Quantity Comments Source History of tobacco 2002-10-17 Cigarette Smoker University of use 00:00:00 [facility] Exposure to 2022-05-02 2022-05-12 Not sure University of SARS-CoV-2 (event) 00:00:00 18:31:00 [facility] Alcohol intake 2020-02-06 2020-02-06 Current University of 00:00:00 00:00:00 non-drinker of [facility] alcohol Branch (finding) Tobacco use and 2020-01-19 2020-01-19 Smokeless Universit y of exposure 00:00:00 00:00:00 tobacco [facility] Cigarettes smoked 2020-01-19 2020-01-19 Univers ity of current (pack per 00:00:00 00:00:00 [facility] ) - Reported Branch Cigarette 2020-01-19 2020-01-19 University of pack-years 00:00:00 00:00:00 [facility] Sex Assigned At [birth year] Universit y of 00:00:00 00:00:00 [facility] Smoking Status Start Date Stop Date Source Heavy tobacco smoker Formerly [facility] (LUF/ELISABETH/SA) Smokes tobacco daily 2020-01-19 00:00:[address] [facility] Medications Ordered Filled Start Stop Current Ordering Indication Dosage Frequency Signature Comments Components Source Medication Medication Date Date Medication? Clinician (SIG) Name Name ketorolac 2021-07- No [id number] 30mg U bar[place] (TORADOL) 07-1305 ity of injection 00:00: 00:09 [place] 30 mg 00 :00 [facility] ketorolac 2021-07- No [id number] 30mg 30 mg, Univers (TORADOL) 07-13 11-05 Intramuscu ity of injection 00:00: 00:09 lar, ONCE, [place] 30 mg 00 :00 1 dose, On Medical Fri Branch 05/12/22 at 1915, Routine busPIRone 2021-07 Yes 15mg Take 15 mg Un [place] 15 mg 04 by mouth ity of tablet 18:43: in the [place] [address] morning Medical and 15 mg Branch at noon and 15 mg in the evening. SERTraline 2021-07 Yes 50mg Take 50 mg U nivers 50 mg -04 by mouth ity of tablet 18:43: in the [place] [address] morning. Medical Branch QUEtiapine 2021-07 Yes 50mg Take 50 mg U nivers 50 mg 04 by mouth ity of tablet 18:43: in the [place] [address] morning Medical and 50 mg Branch in the evening. TAKE 1 2021-0 No TABLET AT 9-29 BEDTIME. 00:00: 00 TAKE 1 2021-0 No 10 TABLET 8-18 TWICE DAILY 00:00: NEEDED. 00 TAKE 1 2021-0 No 800 TABLET 3 8-18 TIMES DAILY 00:00: WITH FOOD 00 NEEDED. TAKE 1 2021-0 No TABLET 8-18 TWICE DAILY 00:00: NEEDED. 00 TAKE 1 2021-0 No TABLET 3 8-18 TIMES DAILY 00:00: WITH FOOD 00 NEEDED. TAKE 1 2021-0 No TABLET 8-18 TWICE DAILY 00:00: NEEDED. 00 TAKE 1 2021-0 No TABLET 3 8-18 TIMES DAILY 00:00: WITH FOOD 00 NEEDED. SERTRALINE 2021-0 No 100 TAB 100MG 02-22 00:00: 00 SERTRALINE 2021-0 No 100 TAB 100MG 02-22 00:00: 00 SERTRALINE 2-0 No 100 TAB 100MG 02-22 00:00: 00 Wellbutrin 2-0 No 1mg XL 150 mg 02-08 24 hr 00:00: tablet, 00 extended release Abilify 5 2021-0 No 15mg mg tablet 02-08 00:00: 00 sertraline 2-0 No 1mg 100 mg - tablet 00:00: 00 Wellbutrin 2-0 No 1mg XL 150 mg 02-08 24 hr 00:00: tablet, 00 extended release Abilify 5 2022-0 No 15mg mg tablet 02-08 00:00: 00 sertraline 2022-0 No 1mg 100 mg 8- tablet 00:00: 00 Wellbutrin 2022-0 No 1mg XL 150 mg 8 24 hr 00:00: tablet, 00 extended release Abilify 5 2022-0 No 15mg mg tablet 02-08 00:00: 00 sertraline 2022-0 No 1mg 100 mg 8- tablet 00:00: 00 sertraline 2022-0 No 15mg 100 mg 7-21 tablet 00:00: 00 Abilify 5 2022-0 No 1mg mg tablet 7 00:00: 00 sertraline 2022-0 No 15mg 100 mg 7-21 tablet 00:00: 00 sertraline 2022-0 No 15mg 100 mg 7-21 tablet 00:00: 00 Abilify 5 2022-0 No 1mg mg tablet 7 00:00: 00 Abilify 5 2022-0 No 1mg mg tablet 7 00:00: 00 sertraline 2022-0 No 1mg 100 mg 7-10 tablet 00:00: 00 sertraline 2022-0 No 1mg 100 mg 7-10 tablet 00:00: 00 hydroxyzine 2022-0 No 12mg HCl 25 mg 7-10 tablet 00:00: 00 hydroxyzine 2022-0 No 12mg HCl 25 mg 7-10 tablet 00:00: 00 hydroxyzine 2022-0 No 12mg HCl 25 mg 7-10 tablet 00:00: 00 hydroxyzine 2022-0 No 12mg HCl 25 mg 7-10 tablet 00:00: 00 sertraline 2022-0 No 1mg 100 mg 7-10 tablet 00:00: 00 hydroxyzine 2022-0 No 12mg HCl 25 mg 7-10 tablet 00:00: 00 hydroxyzine 2022-0 No 12mg HCl 25 mg 7-10 tablet 00:00: 00 HYDROcodone 2022-0 2022- No 1{tbl} 1 tablet, Univers -acetaminop 6-15 06-15 Oral, ONCE i ty of hen (SEEMACO) 07:45: 19:44 NOW, 1 [place] as 10-325 mg 00 :00 dose, On Medica l tablet 1 Sun Branch tablet 12/21/21 at 0245, Routine ketorolac No 15mg 15 mg, Unive rs (TORADOL) 12-2115 Slow IV ity of injection 06:30: 05:55 Push, [place] 15 mg 00 :00 ONCE, 1 Medical dose, On Branch Sun12/21/21 at 0130, [place] montelukast 2021- No [id number] 10mg Take 1 Univers (SINGULAIR) 12-2116 tablet by it y of 10 mg [...] 1 Medical 20 mg dose, On Branch Sun09/30/21 at 0115, [place] ondansetron No 4mg 4 mg, Slow Univers (ZOFRAN 09-30 IV Push, ity of (PF)) 06:15: 05:15 ONCE, 1 [place] injection 4 00 :00 dose, On Medi tami mg Fri Branch 09/30/21 at 0115, [place] NaCl 0.9% No 1000mL at 999 Uni vers (NS) bolus 09-30- mL/hr, ity of infusion 06:15: 06:32 1,000 mL, [place] as 1,000 mL 00 :00 IV Medical Infusion, Branch ONCE, 1 dose, On Sun09/30/21 at 0115, STAT iopamidol 2021- No [id number] 110mL 110 mL, Univers (ISOVUE 09-30 Intravenou ity o f 370-500 mL) 05:56: 05:57 s, ONCE, 1 [place] injection 00 :00 dose, On Medica l 110 mL Fri Branch 09/30/21 at 0115, Routine ondansetron Yes [id number] 4mg Take 1 Univers 4 mg 3-25 tablet by ity of disintegrat 00:00: mouth [place] ing tablet 00 every 8 Medica l (eight) Branch hours as needed for Nausea and Vomiting (N/V). ondansetron Yes [id number] 4mg Take 1 Univers 4 mg 3-25 tablet by ity of disintegrat 00:00: mouth [place] ing tablet 00 every 8 Medica l (eight) Branch hours as needed for Nausea and Vomiting (N/V). ondansetron Yes [id number] 4mg Take 1 Univers 4 mg 3-25 tablet by ity of disintegrat 00:00: mouth [place] ing tablet 00 every 8 Medica l (eight) Branch hours as needed for Nausea and Vomiting (N/V). ondansetron Yes [id number] 4mg Take 1 Univers 4 mg 3-25 tablet by ity of disintegrat 00:00: mouth [place] ing tablet 00 every 8 Medica l (eight) Branch hours as needed for Nausea and Vomiting (N/V). ondansetron Yes [id number] 4mg Take 1 Univers 4 mg 3-25 tablet by ity of disintegrat 00:00: mouth [place] ing tablet 00 every 8 Medica l (eight) Branch hours as needed for Nausea and Vomiting (N/V). levocetiriz 2021- No [id number] 5mg Take 1 Univers ine (XYZAL) 3-25 -19 tablet by it y of 5 mg [...] No 30mg 30 mg, Unive rs (TORADOL) 8-10 08-10 Slow IV ity of injection 03:15: 02:09 Push, [place] 30 mg 00 :00 ONCE, 1 Medical dose, Sun Branch 02/15/20 at 2215, [place]
[facility] Restricted medication : EMERGENCY ROOM, iohexol 0 2020- No 120mL 120 mL, Unive rs (OMNIPAQUE 8-10 08-10 Intravenou it y of 350 03:00: 03:00 s, ONCE, 1 [place] BULK-150 00 :00 dose, Sun Medica l mL) 02/15/20 at Branch injection 2200, 120 mL Routine hydrocortis 2020-0 Yes [id number] Insert Univers one 8-10 into ity of (ANUSOL-HC) 00:00: rectum 2 [place] 2.5 % 00 (two) Medical rectal times Branch cream daily. hydrocortis 2020-0 Yes [id number] Insert Univers one 8-10 into ity of (ANUSOL-HC) 00:00: rectum 2 [place] 2.5 % 00 (two) Medical rectal times Branch cream daily. hydrocortis 2020-0 Yes [id number] Insert Univers one 8-10 into ity of (ANUSOL-HC) 00:00: rectum 2 [place] 2.5 % 00 (two) Medical rectal times Branch cream daily. hydrocortis 2020-0 Yes [id number] Insert Univers one 8-10 into ity of (ANUSOL-HC) 00:00: rectum 2 [place] 2.5 % 00 (two) Medical rectal times Branch cream daily. hydrocortis 2020-0 Yes [id number] Insert Univers one 8-10 into ity of (ANUSOL-HC) 00:00: rectum 2 [place] 2.5 % 00 (two) Medical rectal times Branch cream daily. hydrocortis 2020-0 Yes [id number] Insert Univers one 8-10 into ity of (ANUSOL-HC) 00:00: rectum 2 [place] 2.5 % 00 (two) Medical rectal times Branch cream daily. cephALEXin 2019-0 2020- No [id number] 500mg Take 1 Univers (KEFLEX) 7-31 08-08 capsule by ity of 500 mg 00:00: 04:59 mouth 4 [place] capsule 00 :00 (four) Medical times Branch daily for 7 days. benzonatate 2020-0 2020- No [id number] 100mg Take 1 Univers (TESSALON 01-1824 capsule by ity of PERLES) 100 00:00: 04:59 mouth 3 [place] mg capsule 00 :00 (three) Medica l times [place] daily as needed for Cough for up to 10 days. doxycycline 2020-0 2020- No [id number] 100mg Take 1 Univers hyclate 100 01-18 tablet by it y of mg tablet 00:00: 04:59 mouth 2 [place] 00 :00 (two) Medical times Branch daily for 7 days. ondansetron 2019-0 2020- No 4mg 4 mg, Slow Univers (ZOFRAN 09-19 IV Push, ity of (PF)) 02:15: 01:15 ONCE, 1 [place] injection 4 00 :00 dose, Fri Med ical mg 09/19/19 at Branch 2115, [place] morpHINE 2019-0 2020- No 4mg 4 mg, Slow Un [place] injection 4 09-19 IV Push, ity of mg 02:15: 01:15 ONCE, 1 [place] 00 :00 dose, Fri Medical 09/19/19 at Branch 2115, STAT dicyclomine 2019-2019- No 20mg 20 mg, Uni vers (BENTYL) 09-19 Intramuscu ity of injection 02:15: 01:14 lar, ONCE [place] 20 mg 00 :00 NOW, 1 Medical dose, Fri Branch 09/19/19 at 2115, Routine NaCl 0.9% 2019- 2020- No 1000mL at 999 Uni vers (NS) bolus 09-18- mL/hr, ity of infusion 23:00: 01:26 1,000 mL, [place] 1,000 mL 00 :00 IV Medical Infusion, Branch ONCE, 1 dose, 09/19/19 at 1800, [place] docusate 2020-0 2020- No [id number] 100mg Take 1 U nivers 100 mg 09-18 capsule by ity of capsule 00:00: 04:59 mouth [place] 00 :00 daily for Medical 7 days. [place] dicyclomine 2019-0 2020- No [id number] 20mg Take 1 Univers 20 mg 09-18 tablet by ity of tablet 00:00: 04:59 mouth 4 [place] 00 :00 (four) Medical times [place] daily for 7 days. polyethlene 2020-0 2020- No [id number] 17g Take 17 g Univers glycol 3-13 03-18 by mouth ity of powder 00:00: 04:59 daily for [place] packet 00 :00 4 days. Medical Branch iohexol 2020-0 2020- No 120mL 120 mL, Unive rs (OMNIPAQUE 1-20 -20 Intravenou it y of 350 03:00: 02:41 s, ONCE, 1 [place] BULK-100 00 :00 dose, Sun Medica l mL) 07/27/19 at [place] injection 2100, 120 mL Routine dicyclomine 2020-0 Yes 10mg 10 mg, Univ ers (BENTYL) -20 Oral, QID, ity o f capsule 10 02:00: First dose [place] mg 00 on [facility] 07/27/19 at [place] 2000, Until Discontinu ed, Routine dicyclomine 2020-0 Yes [id number] 10mg Take 1 Univers (BENTYL) 10 1-19 capsule by it y of mg capsule 00:00: mouth [place] 00 every 8 Medical (eight) Branch hours as needed for Abdominal pain. ondansetron 2020-0 Yes [id number] 4mg Take 1 Univers 4 mg 1-19 tablet by ity of disintegrat 00:00: mouth [place] ing tablet 00 every 8 Medica l (eight) Branch hours as needed for Nausea and Vomiting (N/V). methylPREDN 2020-0 Yes [id number] Take by [facility] ISolone 07-27 mouth ity of (MEDROL, 00:00: SEE-INSTRU [place] JENNY,) 4 mg 00 CTIONS. Medica l tablets follow Branch package directions dicyclomine 2020-0 Yes [id number] 10mg Take 1 Univers (BENTYL) 10 1-19 capsule by it y of mg capsule 00:00: mouth [place] 00 every 8 Medical (eight) Branch hours as needed for Abdominal pain. ondansetron 2020-0 Yes [id number] 4mg Take 1 Univers 4 mg 1-19 tablet by ity of disintegrat 00:00: mouth [place] ing tablet 00 every 8 Medica l (eight) Branch hours as needed for Nausea and Vomiting (N/V). methylPREDN 2020-0 Yes [id number] Take by Univers ISolone 1-19 mouth ity of (MEDROL, 00:00: SEE-INSTRU [place] JENNY,) 4 mg 00 CTIONS. Medica l tablets follow Branch package directions dicyclomine 2020-0 Yes [id number] 10mg Take 1 Univers (BENTYL) 10 1-19 capsule by it y of mg capsule 00:00: mouth [place] 00 every 8 Medical (eight) Branch hours as needed for Abdominal pain. ondansetron 2020-0 Yes [id number] 4mg Take 1 Univers 4 mg 1-19 tablet by ity of disintegrat 00:00: mouth [place] ing tablet 00 every 8 Medica l (eight) Branch hours as needed for Nausea and Vomiting (N/V). methylPREDN 2020-0 Yes [id number] Take by Univers ISolone 1-19 mouth ity of (MEDROL, 00:00: SEE-INSTRU [place] JENNY,) 4 mg 00 CTIONS. Medica l tablets follow Branch package directions dicyclomine 2020-0 Yes [id number] 10mg Take 1 Univers (BENTYL) 10 1-19 capsule by it y of mg capsule 00:00: mouth [place] 00 every 8 Medical (eight) Branch hours as needed for Abdominal pain. ondansetron 2020-0 Yes [id number] 4mg Take 1 Univers 4 mg 1-19 tablet by ity of disintegrat 00:00: mouth [place] ing tablet 00 every 8 Medica l (eight) Branch hours as needed for Nausea and Vomiting (N/V). methylPREDN 2020-0 Yes [id number] Take by Univers ISolone 1-19 mouth ity of (MEDROL, 00:00: SEE-INSTRU [place] JENNY,) 4 mg 00 CTIONS. Medica l tablets follow Branch package directions dicyclomine 2020-0 Yes [id number] 10mg Take 1 Univers (BENTYL) 10 1-19 capsule by it y of mg capsule 00:00: mouth [place] 00 every 8 Medical (eight) Branch hours as needed for Abdominal pain. ondansetron 2020-0 Yes [id number] 4mg Take 1 Univers 4 mg 1-19 tablet by ity of disintegrat 00:00: mouth [place] ing tablet 00 every 8 Medica l (eight) Branch hours as needed for Nausea and Vomiting (N/V). methylPREDN 2020-0 Yes [id number] Take by Univers ISolone 1-19 mouth ity of (MEDROL, 00:00: SEE-INSTRU [place] JENNY,) 4 mg 00 CTIONS. Medica l tablets follow Branch package directions sucralfate 2020-0 Yes [id number] 1g Take 1 U nivers 1 gram 1-19 tablet by ity of tablet 00:00: mouth [place] 00 before Medical meals and Branch at bedtime. dicyclomine 2020-0 Yes [id number] 10mg Take 1 Univers (BENTYL) 10 1-19 capsule by it y of mg capsule 00:00: mouth [place] 00 every 8 Medical (eight) Branch hours as needed for Abdominal pain. ondansetron 2020-0 Yes [id number] 4mg Take 1 Univers 4 mg 1-19 tablet by ity of disintegrat 00:00: mouth [place] ing tablet 00 every 8 Medica l (eight) Branch hours as needed for Nausea and Vomiting (N/V). methylPREDN 2020-0 Yes [id number] Take by Univers ISolone 1-19 mouth ity of (MEDROL, 00:00: SEE-INSTRU [place] JENNY,) 4 mg 00 CTIONS. Medica l tablets follow Branch package directions dicyclomine 2020-0 Yes [id number] 10mg Take 1 Univers (BENTYL) 10 1-19 capsule by it y of mg capsule 00:00: mouth [place] 00 every 8 Medical (eight) Branch hours as needed for Abdominal pain. ondansetron 2020-0 Yes [id number] 4mg Take 1 Univers 4 mg 1-19 tablet by ity of disintegrat 00:00: mouth [place] ing tablet 00 every 8 Medica l (eight) Branch hours as needed for Nausea and Vomiting (N/V). methylPREDN 2020-0 Yes [id number] Take by Univers ISolone 1-19 mouth ity of (MEDROL, 00:00: SEE-INSTRU [place] JENNY,) 4 mg 00 CTIONS. Medica l tablets follow Branch package directions dicyclomine 2020-0 Yes [id number] 10mg Take 1 Univers (BENTYL) 10 1-19 capsule by it y of mg capsule 00:00: mouth [place] 00 every 8 Medical (eight) Branch hours as needed for Abdominal pain. ondansetron 2020-0 Yes [id number] 4mg Take 1 Univers 4 mg 1-19 tablet by ity of disintegrat 00:00: mouth [place] ing tablet 00 every 8 Medica l (eight) Branch hours as needed for Nausea and Vomiting (N/V). methylPREDN 2020-0 Yes [id number] Take by Univers ISolone 1-19 mouth ity of (MEDROL, 00:00: SEE-INSTRU [place] JENNY,) 4 mg 00 CTIONS. Medica l tablets follow Branch package directions dicyclomine 2020-0 Yes [id number] 10mg Take 1 Univers (BENTYL) 10 1-19 capsule by it y of mg capsule 00:00: mouth [place] 00 every 8 Medical (eight) Branch hours as needed for Abdominal pain. ondansetron 2020-0 Yes [id number] 4mg Take 1 Univers 4 mg 1-19 tablet by ity of disintegrat 00:00: mouth [place] ing tablet 00 every 8 Medica l (eight) Branch hours as needed for Nausea and Vomiting (N/V). methylPREDN 2020-0 Yes [id number] Take by Univers ISolone 1-19 mouth ity of (MEDROL, 00:00: SEE-INSTRU [place] JENNY,) 4 mg 00 CTIONS. Medica l tablets follow Branch package directions dicyclomine 2020-0 Yes [id number] 10mg Take 1 Univers (BENTYL) 10 1-19 capsule by it y of mg capsule 00:00: mouth [place] 00 every 8 Medical (eight) Branch hours as needed for Abdominal pain. ondansetron 2020-0 Yes [id number] 4mg Take 1 Univers 4 mg 1-19 tablet by ity of disintegrat 00:00: mouth [place] ing tablet 00 every 8 Medica l (eight) Branch hours as needed for Nausea and Vomiting (N/V). methylPREDN 2020-0 Yes [id number] Take by Univers ISolone 1-19 mouth ity of (MEDROL, 00:00: SEE-INSTRU [place] JENNY,) 4 mg 00 CTIONS. Medica l tablets follow Branch package directions dicyclomine 2020-0 Yes [id number] 10mg Take 1 Univers (BENTYL) 10 1-19 capsule by it y of mg capsule 00:00: mouth [place] 00 every 8 Medical (eight) Branch hours as needed for Abdominal pain. ondansetron 2020-0 Yes [id number] 4mg Take 1 Univers 4 mg 1-19 tablet by ity of disintegrat 00:00: mouth [place] ing tablet 00 every 8 Medica l (eight) Branch hours as needed for Nausea and Vomiting (N/V). methylPREDN 2020-0 Yes [id number] Take by Univers ISolone 1-19 mouth ity of (MEDROL, 00:00: SEE-INSTRU [place] JENNY,) 4 mg 00 CTIONS. Medica l tablets follow Branch package directions sucralfate 2020-0 Yes [id number] 1g Take 1 U nivers 1 gram 1-19 tablet by ity of tablet 00:00: mouth [place] 00 before Medical meals and Branch at bedtime. dicyclomine 2020-0 Yes [id number] 10mg Take 1 Univers (BENTYL) 10 1-19 capsule by it y of mg capsule 00:00: mouth [place] 00 every 8 Medical (eight) Branch hours as needed for Abdominal pain. ondansetron 2020-0 Yes [id number] 4mg Take 1 Univers 4 mg 1-19 tablet by ity of disintegrat 00:00: mouth [place] ing tablet 00 every 8 Medica l (eight) Branch hours as needed for Nausea and Vomiting (N/V). methylPREDN 2020-0 Yes [id number] Take by Univers ISolone 1-19 mouth ity of (MEDROL, 00:00: SEE-INSTRU [place] JENNY,) 4 mg 00 CTIONS. Medica l tablets follow Branch package directions sucralfate 2020-0 Yes [id number] 1g Take 1 U nivers 1 gram 1-19 tablet by ity of tablet 00:00: mouth [place] 00 before Medical meals and Branch at bedtime. dicyclomine 2020-0 Yes [id number] 10mg Take 1 Univers (BENTYL) 10 1-19 capsule by it y of mg capsule 00:00: mouth [place] 00 every 8 Medical (eight) Branch hours as needed for Abdominal pain. ondansetron 2020-0 Yes [id number] 4mg Take 1 Univers 4 mg 1-19 tablet by ity of disintegrat 00:00: mouth [place] ing tablet 00 every 8 Medica l (eight) Branch hours as needed for Nausea and Vomiting (N/V). methylPREDN 2020-0 Yes [id number] Take by Univers ISolone 1-19 mouth ity of (MEDROL, 00:00: SEE-INSTRU [place] JENNY,) 4 mg 00 CTIONS. Medica l tablets follow Branch package directions sucralfate 2020-0 Yes [id number] 1g Take 1 U nivers 1 gram 1-19 tablet by ity of tablet 00:00: mouth [place] 00 before Medical meals and Branch at bedtime. dicyclomine 2020-0 Yes [id number] 10mg Take 1 Univers (BENTYL) 10 1-19 capsule by it y of mg capsule 00:00: mouth [place] 00 every 8 Medical (eight) Branch hours as needed for Abdominal pain. ondansetron 2020-0 Yes [id number] 4mg Take 1 Univers 4 mg 1-19 tablet by ity of disintegrat 00:00: mouth [place] ing tablet 00 every 8 Medica l (eight) Branch hours as needed for Nausea and Vomiting (N/V). methylPREDN 2019-0 Yes [id number] Take by Univers ISolone 1-19 mouth ity of (MEDROL, 00:00: SEE-INSTRU [place] JENNY) 4 mg 00 CTIONS. Medica l tablets follow Branch package directions sucralfate 2019-0 2020- No [id number] 1g Take 1 Univers 1 gram 1-19 07-13 tablet by ity of tablet 00:00: 00:00 mouth [place] 00 :00 before Medical meals and Branch at bedtime. omeprazole 2019-0 2020- No [id number] 20mg Take 1 Univers 20 mg 1-19 02-19 capsule by ity of capsule 00:00: 05:59 mouth [place] 00 :00 daily for Medical 30 days. Branch metoclopram 2018-07 Yes [id number] 10mg Take 1 Univers nba HCl 10 1-18 tablet by ity of mg tablet 00:00: mouth [place] 00 every 6 Medical (six) Branch hours as needed for Nausea and Vomiting (N/V). metoclopram 2018-07 Yes [id number] 10mg Take 1 Univers nba HCl 10 1-18 tablet by ity of mg tablet 00:00: mouth [place] 00 every 6 Medical (six) Branch hours as needed for Nausea and Vomiting (N/V). metoclopram 2018-07 Yes [id number] 10mg Take 1 Univers nba HCl 10 1-18 tablet by ity of mg tablet 00:00: mouth [place] 00 every 6 Medical (six) Branch hours as needed for Nausea and Vomiting (N/V). metoclopram 2018-07 Yes [id number] 10mg Take 1 Univers nba HCl 10 1-18 tablet by ity of mg tablet 00:00: mouth [place] 00 every 6 Medical (six) Branch hours as needed for Nausea and Vomiting (N/V). metoclopram 2018-07 Yes [id number] 10mg Take 1 Univers nba HCl 10 1-18 tablet by ity of mg tablet 00:00: mouth [place] 00 every 6 Medical (six) Branch hours as needed for Nausea and Vomiting (N/V). metoclopram 2018-07 Yes [id number] 10mg Take 1 Univers nba HCl 10 1-18 tablet by ity of mg tablet 00:00: mouth [place] 00 every 6 Medical (six) Branch hours as needed for Nausea and Vomiting (N/V). metoclopram 2018-07 Yes [id number] 10mg Take 1 Univers nba HCl 10 1-18 tablet by ity of mg tablet 00:00: mouth [place] 00 every 6 Medical (six) Branch hours as needed for Nausea and Vomiting (N/V). metoclopram 2018-07 Yes [id number] 10mg Take 1 Univers nba HCl 10 1-18 tablet by ity of mg tablet 00:00: mouth [place] 00 every 6 Medical (six) Branch hours as needed for Nausea and Vomiting (N/V). metoclopram 2018-07 Yes [id number] 10mg Take 1 Univers nba HCl 10 1-18 tablet by ity of mg tablet 00:00: mouth [place] 00 every 6 Medical (six) Branch hours as needed for Nausea and Vomiting (N/V). metoclopram 2018-07 Yes [id number] 10mg Take 1 Univers nba HCl 10 1-18 tablet by ity of mg tablet 00:00: mouth [place] 00 every 6 Medical (six) Branch hours as needed for Nausea and Vomiting (N/V). metoclopram 2018-07 Yes [id number] 10mg Take 1 Univers nba HCl 10 1-18 tablet by ity of mg tablet 00:00: mouth [place] 00 every 6 Medical (six) Branch hours as needed for Nausea and Vomiting (N/V). metoclopram 2018-07 Yes [id number] 10mg Take 1 Univers nba HCl 10 1-18 tablet by ity of mg tablet 00:00: mouth [place] 00 every 6 Medical (six) Branch hours as needed for Nausea and Vomiting (N/V). metoclopram 2018-07 Yes [id number] 10mg Take 1 Univers nba HCl 10 1-18 tablet by ity of mg tablet 00:00: mouth [place] 00 every 6 Medical (six) Branch hours as needed for Nausea and Vomiting (N/V). metoclopram 2018-07 Yes [id number] 10mg Take 1 Univers nba HCl 10 1-18 tablet by ity of mg tablet 00:00: mouth [place] 00 every 6 Medical (six) Branch hours as needed for Nausea and Vomiting (N/V). dicyclomine 2018-07 2020- No [id number] 20mg Take 1 Univers (BENTYL) 20 1-18 [...] mouth 3 (three) Medical times Branch daily. varenicline 2018-0 [...] o f 0.5 mg 00:00: by mouth [place] ()- 1 mg 00 once daily Med [...] Nystatin Nystatin No 1applic TID [facility] [id number] [facility] UNT/ML / UNT/ML / Memoria Triamcinolo Triamcinolo l ne ne (LUF/LI Acetonide 1 Acetonide 1 V /SA) MG/ML MG/ML Topical Topical Cream Cream Vital Signs Vital Name Observation Time Observation Value Comments Source Systolic blood 2022-05-12 23:43:00 114 mm[Hg] [facility] Diastolic blood 2022-05-12 23:43:00 78 mm[Hg] [facility] Heart rate 2022-05-12 23:43:00 88 /min [facility] Body temperature 2022-05-12 23:43:00 36.72 Pennie [facility] Respiratory rate 2022-05-12 23:43:00 20 /min [facility] Body height 2022-05-12 23:43:00 162.6 cm [facility] [place] [facility] Body weight 2022-05-12 23:43:00 86.183 kg [facility] [place] [facility] BMI 2022-05-12 23:43:00 32.61 kg/m2 [facility] [place] [facility] Oxygen saturation in 2022-05-12 23:43:00 97 /min University of Arterial blood by [facility] tami Pulse oximetry Branch Systolic blood 2021-12-21 07:00:00 129 mm[Hg] Univer sity of pressure [place] [facility] Diastolic blood 2021-12-21 07:00:00 78 mm[Hg] Unive rsity of pressure [place] [facility] Heart rate 2021-12-21 07:00:00 71 /min [facility] [place] [facility] Respiratory rate 2021-12-21 07:00:00 22 /min [facility] [place] [facility] Oxygen saturation in 2021-12-21 07:00:00 96 /min University of Arterial blood by [facility] Pulse oximetry Branch Body temperature 2021-12-21 04:49:00 36.83 Pennie [facility] [place] [facility] Body height 2021-12-21 04:49:00 162.6 cm [facility] [place] [facility] Body weight 2021-12-21 04:49:00 77.111 kg [facility] [place] [facility] BMI 2021-12-21 04:49:00 29.18 kg/m2 [facility] [place] [facility] Systolic blood 2021-09-30 06:00:00 118 mm[Hg] Univer sity of [facility] [place] [facility] Diastolic blood 2021-09-30 06:00:00 78 mm[Hg] Unive rsity of [facility] [place] [facility] Heart rate 2021-09-30 06:00:00 89 /min [facility] [place] [facility] Respiratory rate 2021-09-30 06:00:00 18 /min [facility] [place] [facility] Oxygen saturation in 2021-09-30 06:00:00 93 /min University of Arterial blood by [facility] tami Pulse oximetry Branch Body temperature 2021-09-30 05:06:00 36.67 Pennie [facility] [place] [facility] Body height 2021-09-30 05:06:00 162.6 cm [facility] [place] [facility] Body weight 2021-09-30 05:06:00 78.019 kg [facility] [place] [facility] BMI 2021-09-30 05:06:00 29.52 kg/m2 [facility] [place] [facility] Systolic blood 2020-02-16 05:15:00 137 mm[Hg] [facility] [place] [facility] Diastolic blood 2020-02-16 05:15:00 93 mm[Hg] Unive rsity of pressure [place] [facility] Heart rate 2020-02-16 05:15:00 79 /min [facility] [place] [facility] Respiratory rate 2020-02-16 05:15:00 18 /min [facility] [place] [facility] Oxygen saturation in 2020-02-16 05:15:00 99 /min University of Arterial blood by [employer] Pulse oximetry Branch Body temperature 2020-02-16 01:23:00 37.28 Pennie [facility] [place] [facility] Body weight 2020-02-16 01:23:00 78.019 kg [facility] [place] [facility] BMI 2020-02-16 01:23:00 29.52 kg/m2 [facility] [place] [facility] Systolic blood 2020-02-06 22:28:00 129 mm[Hg] [facility] [place] [facility] Diastolic blood 2020-02-06 22:28:00 93 mm[Hg] Unive rsity of [facility] [place] [facility] Heart rate 2020-02-06 22:28:00 100 /min [facility] [place] [facility] Body temperature 2020-02-06 22:28:00 36.72 Pennie [facility] [place] [facility] Respiratory rate 2020-02-06 22:28:00 18 /min [facility] [place] [facility] Body weight 2020-02-06 22:28:00 79.379 kg [facility] [place] [facility] BMI 2020-02-06 22:28:00 30.04 kg/m2 [facility] [place] [facility] Oxygen saturation in 2020-02-06 22:28:00 98 /min University of Arterial blood by [employer] Pulse oximetry Branch Systolic blood 2020-01-19 18:07:00 125 mm[Hg] Univer sity of [facility] [place] [facility] Diastolic blood 2020-01-19 18:07:00 83 mm[Hg] Unive rsity of pressure [place] [facility] Heart rate 2020-01-19 18:07:00 83 /min [facility] [place] [facility] Body temperature 2020-01-19 18:07:00 37.11 Pennie [facility] [place] [facility] Respiratory rate 2020-01-19 18:07:00 17 /min [facility] [place] [facility] Body height 2020-01-19 18:07:00 162.6 cm [facility] [place] [facility] Body weight 2020-01-19 18:07:00 79.379 kg [facility] [place] [facility] BMI 2020-01-19 18:07:00 30.04 kg/m2 [facility] [place] [facility] Oxygen saturation in 2020-01-19 18:07:00 98 /min University of Arterial blood by [place] [facility] tami Pulse oximetry Branch Systolic blood 2019-09-20 00:00:00 124 mm[Hg] Univer sity of pressure [place] [facility] Diastolic blood 2019-09-20 00:00:00 75 mm[Hg] Unive rsity of pressure [place] [facility] Heart rate 2019-09-20 00:00:00 74 /min [facility] [place] [facility] Respiratory rate 2019-09-20 00:00:00 16 /min [facility] [place] [facility] Oxygen saturation in 2019-09-20 00:00:00 95 /min [facility] Arterial blood by [place] [facility] tami Pulse oximetry Branch Body temperature 2019-09-19 22:27:00 36.56 Pennie [facility] [place] [facility] Body weight 2019-09-19 22:27:00 81.647 kg [facility] [place] [facility] BMI 2019-09-19 22:27:00 30.90 kg/m2 [facility] [place] [facility] Systolic blood 2019-07-28 03:49:00 123 mm[Hg] Univer sity of [facility] [place] [facility] Diastolic blood 2019-07-28 03:49:00 90 mm[Hg] Unive rsity of pressure [place] [facility] Heart rate 2019-07-28 03:49:00 72 /min [facility] [place] [facility] Body temperature 2019-07-28 03:49:00 36.56 Pennie [facility] [place] [facility] Respiratory rate 2019-07-28 03:49:00 18 /min [facility] [place] [facility] Oxygen saturation in 2019-07-28 03:49:00 95 /min [facility] of Arterial blood by [place] [facility] tami Pulse oximetry Branch Body height 2019-07-28 00:55:00 162.6 cm [facility] Body weight 2019-07-28 00:55:00 81.647 kg [facility] BMI 2019-07-28 00:55:00 30.90 kg/m2 [facility] BP Systolic 2022-03-22 13:46:00 120 mm[Hg] BP Diastolic 2022-03-22 13:46:00 80 mm[Hg] Weight Measured 2022-03-22 13:46:00 186.20 pounds Height Measured 2022-03-22 13:46:00 64.00 inches Body Temperature 2022-03-22 13:46:00 97.30 degrees Heart Rate 2022-03-22 13:46:00 88.00 /min Respiratory Rate 2022-03-22 13:46:00 BP Systolic 2022-02-23 10:57:00 132 mm[Hg] BP Diastolic 2022-02-23 10:57:00 84 mm[Hg] Weight Measured 2022-02-23 10:57:00 185.60 pounds Height Measured 2022-02-23 10:57:00 64.00 inches Body Temperature 2022-02-23 10:57:00 97.20 degrees Heart Rate 2022-02-23 10:57:00 102.00 /min Respiratory Rate 2022-02-23 10:57:00 BP Systolic 2022-01-15 11:04:00 BP Diastolic 2022-01-15 11:04:00 Weight Measured 2022-01-15 11:04:00 175.00 pounds Height Measured 2022-01-15 11:04:00 64.00 inches Body Temperature 2022-01-15 11:04:00 Heart Rate 2022-01-15 11:04:00 Respiratory Rate 2022-01-15 11:04:00 Respiratory Rate 2017-06-12 19:50:00 18 /min [facility] (LUF/ELISABETH/SA) O2% BldC Oximetry 2017-06-12 19:50:00 98 % [facility] (LUF/ELISABETH/SA) BP Systolic 2017-06-12 19:50:00 128 mm[Hg] [facility] (LUF/ELISABETH/SA) BP Diastolic 2017-06-12 19:50:00 68 mm[Hg] [facility] (LUF/ELISABETH/SA) Body Temperature 2017-06-12 17:02:00 98 F [facility] (LUF/ELISABETH/SA) Height 2017-06-12 17:02:00 65 in [facility] (F/ELISABETH/SA) Weight Measured 2017-06-12 17:02:00 174.98 lbs [facility] S t [facility] (LUF/ELISABETH/SA) BMI (Body Mass 2017-06-12 17:02:00 29.1 [facility] (LUF/ELISABETH/SA) Procedures Procedure Date / Time Performing Clinician Source Performed ASSIGNMENT OF BENEFITS 2022-05-12 23:31:38 Doctor Unassigned, No [facility] Name [facility] Branch URINALYSIS 2021-12-21 05:50:00 AlysonRonald tran [facility] LIPASE 2021-12-21 05:41:00 Alyson [facility] Gurjit [facility] COMP. METABOLIC PANEL 2021-12-21 05:41:00 Ronald Shields [facility] ([id number]) Medical Branch CBC WITH DIFF 2021-12-21 05:41:00 Ronald Shields [facility] XR CHEST 2 2021-12-21 05:28:06 Ronald Shields [facility] CONSENT/REFUSAL FOR 2021-12-21 04:31:14 Doctor Unassigned, No [facility] DIAGNOSIS AND TREATMENT Name Medical [place] XR CHEST 2 VW 2021-09-30 06:06:29 Garth Bautista [facility] CT ABDOMEN PELVIS W 2021-09-30 06:04:[address] [facility] CONTRAST [facility] Branch COVID-19 (ID NOW RAPID 2021-09-30 05:20:00 Garth Bautista [facility] TESTING) Medical [place] RAPID INFLUENZA A/B 2021-09-30 05:19:00 Garth Bautista [facility] URINALYSIS 2021-09-30 05:18:00 Garth Bautista [facility] LIPASE 2021-09-30 05:14:00 Garth Bautista [facility] TROPONIN I 2021-09-30 05:14:00 Garth Bautista [facility] COMP. METABOLIC PANEL 2021-09-30 05:14:00 Garth Bautista [facility] ([id number]) Medical Branch CBC WITH DIFF 2021-09-30 05:14:00 Garth Bautista [facility] NOTICE OF PRIVACY 2021-09-30 04:58:38 Doctor Unassigned, No [facility] Branch CONSENT/REFUSAL FOR 2021-09-30 04:58:23 Doctor Unassigned, No [facility] Name Medical Branch CT ABDOMEN PELVIS W 2020-02-16 02:52:[address] [facility] CONTRAST Medical Branch LIPASE 2020-02-16 02:01:00 Jamaal Trotter [facility] HEPATIC FUNCTION PANEL 2020-02-16 02:01:00 Jamaal Trotter [facility] ([id number]) (ALB,T.PRO,BILI Medical Branch T,BU/BC,ALT,AST,ALK PHOS) BASIC METABOLIC PANEL 2020-02-16 02:01:00 Jamaal Trotter [facility] (NA, K, CL, CO2, Medical Branch GLUCOSE, BUN, CREATININE, CA) CBC WITH DIFF 2020-02-16 02:01:00 Jamaal Trotter [facility] URINALYSIS 2020-02-16 02:01:00 Jamaal Trotter [facility] CONSENT/REFUSAL FOR 2020-02-06 22:17:29 Doctor Unassigned, No [facility] Name Medical Branch XR KUB 2019-09-20 00:34:59 Swati Limon [facility] COMP. METABOLIC PANEL 2019-09-20 00:13:00 Swati Limon [facility] ([id number]) Medical [place] CBC WITH DIFFERENTIAL 2019-09-20 00:13:00 [facility]INALYSIS 2019-09-20 00:13:00 [facility] NOTICE OF PRIVACY 2019-09-19 22:17:17 Doctor Unassigned, No [facility] [place] PRACTICES Name Medical Branch CONSENT/REFUSAL FOR 2019-09-19 22:17:05 Doctor Unassigned, No Un [facility] [place] DIAGNOSIS AND TREATMENT Name Medical Branch CT ABDOMEN PELVIS W 2019-07-28 02:46:[address] [facility] CONTRAST [facility] Branch LIPASE 2019-07-28 01:34:00 Sabi Berman [place] o f [facility] COMP. METABOLIC PANEL 2019-07-28 01:34:00 Sabi Berman [facility] ([id number]) [facility] CBC WITH DIFFERENTIAL 2019-07-28 01:34:00 Sabi Berman [facility] CONSENT/REFUSAL FOR 2019-07-28 00:45:36 Doctor Unassigned, No Un [facility] [place] DIAGNOSIS AND TREATMENT Name [facility] Plan of Care Planned Activity Planned Date Details Comments Source Goal Plan of Care Note [code = 22936-8] Goal Plan of Care Note [code = 34936-1] Goal Plan of Care Note [code = 23389-0] Goal Plan of Care Note [code = 13438-9] Goal Plan of Care Note [code = 65916-0] Goal Plan of Care Note [code = 39804-4] Goal Plan of Care Note [code = 63510-2] Goal Plan of Care Note [code = 80594-8] Goal Plan of Care Note [code = 34716-4] Goal Plan of Care Note [code = 60058-8] Goal Plan of Care Note [code = 26830-5] Goal Plan of Care Note [code = 09215-9] Goal Plan of Care Note [code = 90009-3] Goal Plan of Care Note [code = 17016-4] Goal Plan of Care Note [code = 77199-7] Goal Plan of Care Note [code = 46941-6] Goal Plan of Care Note [code = 29756-6] Goal Plan of Care Note [code = 00576-8] Goal Plan of Care Note [code = 29468-8] Goal Plan of Care Note [code = 86981-4] Goal Plan of Care Note [code = 29775-6] Goal Plan of Care Note [code = 56513-7] Goal Plan of Care Note [code = 91734-2] Goal Plan of Care Note [code = 80063-2] Goal Plan of Care Note [code = 89940-7] Goal Plan of Care Note [code = 48721-9] Encounters Start End Encounter Admission Attending Care Care Encounter Source Date/Time Date/Time Type Type Clinicians Facility Department ID 2021-05-06 Emergency [facility] [id number] Univers 11:24:[address] [facility] 2021-05-06 Emergency [facility] [id number] Univers 10:10:15 ity [facility] 2022-05-12 2022-05-12 Urgent Rosario Claudio [facility] 1.2.840. 114 [id number] Univers 18:20:00 18:40:00 Care Unknown, Attending [facility] [id number] ity of [place] [id number] Kristian as RO?BLEA [id number] [address] MEDICAL OFFICE BUILDING 2022-05-12 2022-05-12 Outpatient R UNKNOWN, ATTENDING [facility] [id number] Univers 18:20:00 18:20:00 ROSARIO CLAUDIO ity of [facility] 2022-05-12 2022-05-12 Orders Doctor MAKAYLA 1.2.840.114 [id number] Univers 00:00:00 00:00:00 Only Unassigned, CHARLA [id number] ity of [place] [facility] [id number] Kristian as [phone] [address] 2022-03-22 2022-03-22 Outpatient [id number] 00:00:00 00:00:00 Visit 726d-4af1 26d-4af1-9 -940c-368 40c-368d92 [id number] 2022-02-23 2022-02-23 Outpatient [id number] 00:00:00 00:00:00 Visit 72n2-151x 1h1-702r-1 -983f-a0e 83f-a0ef41 [id number] 6396ef 2022-01-15 2022-01-15 Outpatient [id number] 00:00:00 00:00:00 Visit 25m6-686d 8o9-801r-k -x683-37o 862-72fa75 [id number] 2021-12-20 2021-12-21 Emergency X ALYSON, [facility] ERT [id number] Univers 23:54:00 02:13:00 RONALD arrieta [facility] 2021-12-20 2021-12-21 Emergency [facility] [id number] Univers 23:54:00 02:13:00 Ronald WEST [id number] ity of [place] 4.2.7.2.686 [facility] [id number] [address] 2021-11-16 2021-11-16 [facility] [id number] Univers 00:00:00 00:00:00 Xiang SPECIALTY [id number] ity of [facility] 4.2.7.2.686 [facility] AT [phone] Sd cj [address] 2021-11-15 2021-11-15 Outpatient R [facility] [id number] Univers 09:00:00 09:00:00 [facility] 2021-10-26 2021-10-18 Inpatient EL Aguda, [facility] RADI [id number] [facility] 11:00:00 08:05:00 Rosalva 67 Mayur carpio [facility] 2021-09-30 2021-09-30 Emergency X LILY, [facility] ERT [id number] Univers 00:02:00 01:41:00 GARTH arrieta [facility] 2021-09-30 2021-09-30 [facility] [id number] Univers 00:02:00 01:41:00 Garth WEST [id number] i ty of [place] 4.2.7.2.686 [facility] [id number] [address] 2021-06-22 2021-06-22 Outpatient R UNKNOWN, [facility] [id number] Univers 20:15:00 20:15:[address] [facility] 2020-02-15 2020-02-16 Emergency Jamaal Trotter [facility] 1.2.840.114 [id number] Univers 20:25:00 00:23:00 T Kelsi [id number] i ty of [place] 4.2.7.2.686 [facility] [id number] [address] 2020-02-06 2020-02-06 Emergency Emmett, [facility] 1.2.840.114 [id number] Univers 17:30:03 18:06:00 Jamaal Kelsi [id number] i ty of [place] 4.2.7.2.686 [facility] [id number] [address] 2020-02-06 2020-02-06 Orders Doctor BENAVIDES 1.2.840.114 [id number] Univers 00:00:00 00:00:00 Only Unassigned, CHARLA [id number] ity of [place] [facility] 4.2.7.2.686 Kristian as [id number] [address] 2020-02-03 2020-02-03 Telephone Pob1, Acute [facility] 1.2.840.114 [id number] Univers 00:00:00 00:00:00 Care [facility] [id number] ity of [place] 4.2.7.2.686 Kristian as Professio [id number] Sd dical nal [address] [place] [address] 2020-01-19 2020-01-19 Urgent Pob1, Acute Care Clinic [facility] 1. 2.840.114 [id number] Univers 13:01:51 13:40:36 Care Anesandy, [facility] [id number] ity of [place] [id number] Kristian as Professio [phone] Sd dical nal [address] [place] [address] 2020-01-19 2020-01-19 Outpatient R [facility] [id number] Univers 13:00:00 13:00:[address] [facility] 2020-01-19 2020-01-19 Letter Doctor MAKAYLA 1.2.840.114 [id number] Univers 00:00:00 00:00:00 (Out) Unassigned, CHARLA [id number] ity of [place] [facility] 4.2.7.2.686 Kristian as [phone] [facility] 044 Branch 2020-01-09 2020-01-09 Outpatient R [facility] [id number] Univers 09:40:00 09:40:[address] [facility] 2019-09-19 2019-09-19 Emergency X [facility], [facility] ERT [id number] Univers 18:38:25 20:38:[address] [facility] 2019-09-19 2019-09-19 Emergency [facility] 1.2.840.114 [id number] Univers 18:38:25 20:38:00 Swati [place] [id number] ity of [place] 4.2.7.2.686 [facility] [phone] [facility] 084 [place] 2019-09-19 2019-09-19 Orders Doctor MAKAYLA 1.2.840.114 [id number] Univers 00:00:00 00:00:00 Only Unassigned, CHARLA [id number] [facility] 4.2.7.2.686 Kristian as [phone] [facility] 009 Branch 2019-07-27 2019-07-27 Emergency [facility] [id number] Univers 18:49:37 21:53:00 Sabi [place] [id number] i ty of [place] 4.2.7.2.686 [facility] [id number] [place] [id number] Branch 2017-06-12 2017-06-12 STRAIN 1 RENNER, [facility] PATEL [facility] PATEL [id number] 16:57:00 19:55:00 ADITI VILLA Estefanía kes FASCIA , [address] [facility] (LUF/LI ST, PATEL V/SA) DAISY , HEMANTH [address] Results Test Description Test Time Test Comments Results Result Comments Source COMP. METABOLIC PANEL (42457) 2021-12-21 06:14:33 Test Item Value Reference Range Interpretation Comme nts NA (test code = 5922738822) 136 mmol/L 135-145 K (test code = 1586302646) 4.3 mmol/L 3.5-5.0 CL (test code = 2169021348) 104 mmol/L 98-108 CO2 TOTAL (test code = 23 mmol/L 23-31 2341039557) AGAP (test code = 4345439936) 2-16 BUN (test code = 1005501121) 18 mg/dL 7-23 GLUCOSE (test code = 2983073266) 103 mg/dL 70-110 CREATININE (test code = 1.08 mg/dL 0.60-1.25 5355344405) TOTAL BILI (test code = 0.5 mg/dL 0.1-1.2 0170834632) CALCIUM (test code = 5514631944) 9.5 mg/dL 8.6-10.6 T PROTEIN (test code = 7.2 g/dL 6.3-8.2 5572400527) ALBUMIN (test code = 9287124717) 4.8 g/dL 3.5-5.0 ALK PHOS (test code = 9944712622) 77 U/L 34-122 ALTv (test code = 1742-6) 29 U/L 5-50 AST(SGOT) (test code = 23 U/L 13-40 0069863408) eGFR (test code = 7077523694) mL/min/1.73m2 [place] (test code = [place]) Association [...] or urine or abnormalities in imaging tests). [facility] 06:14[facility]33 Test Item Value Reference Range Interpretation Comments LIPASE (test code = 3777502112) 108 U/L 0-220 Lab Interpretation (test code = Normal 13097-4) [facility] WITH [id number] 06:00:12 Test Item Value Reference Range Interpretation Comments WBC (test code = See_Comment [Automated 4890-2) message] The sy stem which generated this result transmitted reference range : 4.20 - 10.70 10*3/?L. The reference range was not used to interpret this result as normal/abnormal . RBC (test code = See_Comment [Automated 859-8) message] The sy stem which generated this [...] (test code = 37.2 fL 38.5-51.6 L 39756-3) RDW-CV (test code = 12.0 % 12.1-15.4 L 788-0) PLT (test code = See_Comment [Automated 777-3) message] The sy stem which generated this result transmitted reference range : 150 - 328 10*3/ ?L. The reference r abhijit was not used to interpret this result as normal/abnormal . MPV (test code = 9.3 fL 9.8-13.0 L 24895-1) NRBC/100 WBC (test See_Comment [Automat ed code = 9557805911) message] The system which generated this result transmitted reference range : 0.0 - 10.0 /100 WBCs. The refer ence range was not u sed to interpret th is result as normal/abnormal . NRBC x10^3 (test code <0.01 See_Comment [Auto mated = 8303717113) message] The s ystem which generated this result transmitted reference range : 10*3/?L. The reference range was not used to interpret this result as normal/abnormal . GRAN MAT (NEUT) % 56.2 % (test code = 770-8) IMM GRAN % (test code 0.40 % = 7578690064) LYMPH % (test code = 34.8 % 736-9) MONO % (test code = 7.7 % 5905-5) EOS % (test code = 0.6 % 713-8) BASO % (test code = 0.3 % 706-2) GRAN MAT x10^3(ANC) 5.73 10*3/uL 1.99-6.95 (test code = 1990122180) IMM GRAN x10^3 (test 0.04 10*3/uL 0.00-0.06 code = 3760651041) LYMPH x10^3 (test code 3.55 10*3/uL 1.09-3.23 H = 731-0) MONO x10^3 (test code 0.79 10*3/uL 0.36-1.02 = 742-7) EOS x10^3 (test code = 0.06 10*3/uL 0.06-0.53 711-2) BASO x10^3 (test code 0.03 10*3/uL 0.01-0.09 = 704-7) Lab Interpretation Abnormal (test code = 56127-4) [facility] [id number] 05:53:09 Test Item Value Reference Interpretation Comments Range TROPONIN I (test 0.006 ng/mL See_Comment [Automated code = 1701938036) message] The system which generated this result [...] biotin. Lab Interpretation Normal (test code = 26289-4) [facility]. METABOLIC PANEL (16831)2021-09-30 05:41:27 Test Item Value Reference Range Interpretation Comments NA (test code = 138 mmol/L 135-145 5540592127) K (test code = 4.2 mmol/L 3.5-5.0 3744968180) CL (test code = 106 mmol/L 98-108 0732956070) CO2 TOTAL (test code = 21 mmol/L 23-31 L 7652495847) AGAP (test code = 2-16 0899331641) BUN (test code = 12 mg/dL 7-23 6629646371) GLUCOSE (test code = 100 mg/dL 70-110 5124708304) CREATININE (test code = 0.93 mg/dL 0.60-1.25 8141127878) TOTAL BILI (test code = 0.5 mg/dL 0.1-1.8 8660238582) CALCIUM (test code = 9.3 mg/dL 8.6-10.6 8700751642) T PROTEIN (test code = 7.3 g/dL 6.3-8.2 9578487318) ALBUMIN (test code = 4.7 g/dL 3.5-5.0 0041522254) ALK PHOS (test code = 79 U/L 34-122 9505172390) ALTv (test code = 24 U/L 5-50 1742-6) AST(SGOT) (test code = 23 U/L 13-40 2889198984) eGFR (test code = mL/min/1.73m2 7680741943) [place] (test code = [place]) Association of [...] tests). Lab Interpretation Abnormal (test code = 22046-7) [facility] [facility] 05:41:27 Test Item Value Reference Range Interpretation Comments LIPASE (test code = 0346217522) 98 U/L 0-220 Lab Interpretation (test code = Normal 31217-3) [facility] WITH [id number] 05:27:48 Test Item Value Reference Range Interpretation Comments WBC (test code = See_Comment [Automated 0790-2) message] The sy stem which generated this [...] RDW-SD (test code = 38.5 fL 38.5-51.6 87578-8) RDW-CV (test code = 11.9 % 12.1-15.4 L 788-0) PLT (test code = See_Comment [Automated 777-3) message] The sy stem which generated this result transmitted reference range : 150 - 328 10*3/ ?L. The reference r abhijit was not used to interpret this result as normal/abnormal . MPV (test code = 9.8 fL 9.8-13.0 94785-5) NRBC/100 WBC (test See_Comment [Automat ed code = 4110670192) message] The system which generated this result transmitted reference range : 0.0 - 10.0 /100 WBCs. The refer ence range was not u sed to interpret th is result as normal/abnormal . NRBC x10^3 (test code <0.01 See_Comment [Auto mated = 8176914995) message] The s ystem which generated this result transmitted reference range : 10*3/?L. The reference range was not used to interpret this result as normal/abnormal . GRAN MAT (NEUT) % 54.4 % (test code = 770-8) IMM GRAN % (test code 0.30 % = 5149410127) LYMPH % (test code = 37.1 % 736-9) MONO % (test code = 7.3 % 5905-5) EOS % (test code = 0.6 % 713-8) BASO % (test code = 0.3 % 706-2) GRAN MAT x10^3(ANC) 5.34 10*3/uL 1.99-6.95 (test code = 2666412372) IMM GRAN x10^3 (test 0.03 10*3/uL 0.00-0.06 code = 0250914575) LYMPH x10^3 (test code 3.64 10*3/uL 1.09-3.23 H = 731-0) MONO x10^3 (test code 0.72 10*3/uL 0.36-1.02 = 742-7) EOS x10^3 (test code = 0.06 10*3/uL 0.06-0.53 711-2) BASO x10^3 (test code 0.03 10*3/uL 0.01-0.09 = 704-7) Lab Interpretation Abnormal (test code = 61341-4) [facility] PELVIS W [id number] 04:57:37Impression: No acute abnormalities evident. RL: 460 [...] User - 02/15/202011:58 PM CDTOrdering Physician: JAMAAL Morelos: Diarrhea. Perirectal abscess..Technique: CT abdomen and pelvis [...] No acute abnormalities evident.RL: 460End of Report [facility] (NA, K, CL, CO2, GLUCOSE, BUN, CREATININE, CA)2020-02-16 02:37:00 Test Item Value Reference Range Interpretation Comments NA (test code = 138 mmol/L 135-145 1418126510) K (test code = 3.8 mmol/L 3.5-5 3852777117) CL (test code = 105 mmol/L 98-108 2030250468) CO2 TOTAL (test code = 25 mmol/L 23-31 1371344614) AGAP (test code = 2-16 1842096080) BUN (test code = 11 mg/dL 7-23 5832089899) GLUCOSE (test code = 111 mg/dL 70-110 H 6182413551) CREATININE (test code = 0.95 mg/dL 0.6-1.25 3353792891) CALCIUM (test code = 9.4 mg/dL 8.6-10.6 5233661971) eGFR Calculation mL/min/1.73m2 (Non-) (test code = 5946280943) eGFR Calculation mL/min/1.73m2 () (test code = 4931513141) [place] (test code = EVERT[place]) Association of [...] tests). Lab Interpretation Abnormal (test code = 41180-8) [facility] (ALB, T.PRO, BILI T, BU/BC, ALT, AST, ALK PHOS)2020-02-16 02:37:00 Test Item Value Reference Range Interpretation Comments TOTAL BILI (test code = 9945230127) 0.2 mg/dL 0.1-1.1 BILI UNCON (test code = 3309532607) 0.3 mg/dL 0.1-1.1 BILI CONJ (test code = 4429823333) 0.0 mg/dL 0-0.3 T PROTEIN (test code = 3962663622) 7.4 g/dL 6.3-8.2 ALBUMIN (test code = 9668401356) 4.5 g/dL 3.5-5 ALK PHOS (test code = 0725467244) 70 U/L 34-122 ALTv (test code = 1742-6) 19 U/L 5-50 AST(SGOT) (test code = 2743925528) 22 U/L 13-40 Lab Interpretation (test code = Normal 57685-4) [facility] WorthLipase [id number] 02:37:00 Test Item Value Reference Range Interpretation Comments LIPASE (test code = 1284375362) 71 U/L 0-220 Lab Interpretation (test code = Normal 28488-4) [facility] WorthUrinalysis2020-08-10 02:31:00 Test Item Value Reference Range Interpretation Comments APPEARANCE (test code = Clear Clear 2281091617) COLOR (test code = Yellow Yellow 0863432518) PH (test code = 4.8-8.0 0634951538) SP GRAVITY (test code = 1.003-1.030 0148686448) GLU U QUAL (test code = Normal Normal 9650534550) BLOOD (test code = Negative Negative 0246754057) KETONES (test code = 5 mg/dL Negative A 7411465892) PROTEIN (test code = Negative Negative 2887-8) UROBILIN (test code = 2.0 mg/dL Normal A 0974388167) BILIRUBIN (test code = Negative Negative 7332267153) NITRITE (test code = Negative Negative 6342120184) LEUK EMMANUEL (test code = Negative Negative 1519619612) RBC/HPF (test code = <1 See_Comment [Autom ated message] 4800409645) The system [employer] (by [employer]ankur) generated this result transmit clay reference range : 0 - 3 HPF. The refe rence range was not u sed to interpret th is result as normal/abnormal . WBC/HPF (test code = <1 See_Comment [Autom ated message] 2895459093) The system [employer] (by [employer]) generated this result transmit clay reference range : 0 - 5 HPF. The refe rence range was not u sed to interpret th is result as normal/abnormal . BACTERIA (test code = Negative Negative 5352323302) MUCOUS (test code = Slight Negative LPF A 6286649884) SQ EPITH (test code = <1 HPF 7349749219) Lab Interpretation (test Abnormal code = 13317-9) [facility] with [id number] 02:23:00 Test Item Value Reference Range Interpretation Comments WBC (test code = See_Comment [Automated 0490-2) message] The sy stem which generated this [...] (test code = 35.2 fL 38.5-51.6 L 84286-5) RDW-CV (test code = 11.3 % 12.1-15.4 L 788-0) PLT (test code = See_Comment [Automated 777-3) message] The sy stem which generated this result transmitted reference range : 150 - 328 10*3/ ?L. The reference r abhijit was not used to interpret this result as normal/abnormal . MPV (test code = 10.0 fL 9.8-13 42517-2) NRBC/100 WBC (test See_Comment [Automat ed code = 7254684577) message] The system which generated this result transmitted reference range : 0.0 - 10.0 /100 WBCs. The refer ence range was not u sed to interpret th is result as normal/abnormal . NRBC x10^3 (test code <0.01 See_Comment [Auto mated = 5819658827) message] The s ystem which generated this result transmitted reference range : 10*3/?L. The reference range was not used to interpret this result as normal/abnormal . GRAN MAT (NEUT) % 60.4 % (test code = 770-8) IMM GRAN % (test code 0.10 % = 7709415289) LYMPH % (test code = 32.6 % 736-9) MONO % (test code = 6.3 % 5905-5) EOS % (test code = 0.5 % 713-8) BASO % (test code = 0.1 % 706-2) GRAN MAT x10^3(ANC) 5.29 10*3/uL 1.99-6.95 (test code = 5663763843) IMM GRAN x10^3 (test <0.03 0-0.06 code = 2637747399) LYMPH x10^3 (test code 2.85 10*3/uL 1.09-3.23 = 731-0) MONO x10^3 (test code 0.55 10*3/uL 0.36-1.02 = 742-7) EOS x10^3 (test code = 0.04 10*3/uL 0.06-0.53 L 711-2) BASO x10^3 (test code <0.03 0.01-0.09 = 704-7) Lab Interpretation Abnormal (test code = 32435-2) [facility] WorthUrinalysis2020-03-14 00:48:00 Test Item Value Reference Range Interpretation Comments APPEARANCE (test code = Clear Clear 2618635769) COLOR (test code = Straw Yellow A 1566858303) PH (test code = 4.8-8.0 6050609842) SP GRAVITY (test code = 1.003-1.030 8259257652) GLU U QUAL (test code = Normal Normal 4651366644) BLOOD (test code = Negative Negative 0778990861) KETONES (test code = Negative Negative 0056078463) PROTEIN (test code = Negative Negative 2887-8) UROBILIN (test code = Normal Normal 9884344354) BILIRUBIN (test code = Negative Negative 0863426635) NITRITE (test code = Negative Negative 5494081350) LEUK EMMANUEL (test code = Negative Negative 1271467872) RBC/HPF (test code = See_Comment [Autom ated message] 1844184778) The system [employer] (by [employer]) generated this result transmitted ref erence range: 0 - 3 HP F. The reference range was not used to int erpret this result as normal/abnormal . WBC/HPF (test code = <1 See_Comment [Autom ated message] 2481941386) The system [employer] (by [employer]) generated this result transmitted ref erence range: 0 - 5 HP F. The reference range was not used to int erpret this result as normal/abnormal . BACTERIA (test code = Negative Negative 8939119417) MUCOUS (test code = Slight Negative LPF A 4965712655) Lab Interpretation (test Abnormal code = 33351-9) [facility]. METABOLIC PANEL (29523)2019-09-20 00:48:00 Test Item Value Reference Range Interpretation Comments NA (test code = 141 mmol/L 135-145 8145738207) K (test code = 3.9 mmol/L 3.5-5 2557189987) CL (test code = 106 mmol/L 98-108 4691111792) CO2 TOTAL (test code = 25 mmol/L 23-31 0853759044) AGAP (test code = 2-16 7236266942) BUN (test code = 14 mg/dL 7-23 2339406365) GLUCOSE (test code = 101 mg/dL 70-110 0861842096) CREATININE (test code 1.03 mg/dL 0.6-1.25 = 5824315277) TOTAL BILI (test code 0.3 mg/dL 0.1-1.1 = 6521904160) CALCIUM (test code = 9.9 mg/dL 8.6-10.6 5546897040) T PROTEIN (test code = 6.8 g/dL 6.3-8.2 2868181163) ALBUMIN (test code = 4.7 g/dL 3.5-5 3890951361) ALK PHOS (test code = 63 U/L 34-122 2679352493) ALTv (test code = 20 U/L 5-50 1742-6) AST(SGOT) (test code = 20 U/L 13-40 2569949190) eGFR Calculation mL/min/1.73m2 (Non-) (test code = 5693954356) eGFR Calculation mL/min/1.73m2 () (test code = 4259196670) [place]ERT[place] (test code = EVERTON) Association of [...] or urine or abnormalities in imaging tests). [facility] WITH [id number] 00:31:00 Test Item Value Reference Range Interpretation Comments WBC (test code = See_Comment [Automated 7315-2) message] The sy stem which generated this result transmitted reference range : 4.20 - 10.70 10*3/?L. The reference range was not used to interpret this result as normal/abnormal . RBC (test code = See_Comment [Automated 485-8) message] The sy stem which generated this [...] (test code = 38.2 fL 38.5-51.6 L 36916-5) RDW-CV (test code = 12.0 % 12.1-15.4 L 788-0) PLT (test code = See_Comment [Automated 777-3) message] The sy stem which generated this result transmitted reference range : 150 - 328 10*3/ ?L. The reference r abhijit was not used to interpret this result as normal/abnormal . MPV (test code = 10.0 fL 9.8-13 16807-2) NRBC/100 WBC (test See_Comment [Automat ed code = 4513576943) message] The system which generated this result transmitted reference range : 0.0 - 10.0 /100 WBCs. The refer ence range was not u sed to interpret th is result as normal/abnormal . NRBC x10^3 (test code <0.01 See_Comment [Auto mated = 8467894993) message] The s ystem which generated this result transmitted reference range : 10*3/?L. The reference range was not used to interpret this result as normal/abnormal . GRAN MAT (NEUT) % 60.6 % (test code = 770-8) IMM GRAN % (test code 0.40 % = 6491464456) LYMPH % (test code = 31.9 % 736-9) MONO % (test code = 6.1 % 5905-5) EOS % (test code = 0.8 % 713-8) BASO % (test code = 0.2 % 706-2) GRAN MAT x10^3(ANC) 5.02 10*3/uL 1.99-6.95 (test code = 0431974106) IMM GRAN x10^3 (test 0.03 10*3/uL 0-0.06 code = 4408293384) LYMPH x10^3 (test code 2.65 10*3/uL 1.09-3.23 = 731-0) MONO x10^3 (test code 0.51 10*3/uL 0.36-1.02 = 742-7) EOS x10^3 (test code = 0.07 10*3/uL 0.06-0.53 711-2) BASO x10^3 (test code <0.03 0.01-0.09 = 704-7) Lab Interpretation Abnormal (test code = 60488-7) [facility] PEL[facility] W [id number] 02:58:35Impression: 1. Fluid-filled, nondilated distal small bowel loops with mucosal foldthickening, suggestive of enteritis.2. Normal appendix. No free air or free fluid. RL: 2824AFC: 96556 End of Report Exam: CT Abdomen and [...] No free air or free fluid.RL: 2824AFC: 90011Afr of Report [facility] METABOLIC PANEL (58413)2019-07-28 02:28:00 Test Item Value Reference Range Interpretation Comments NA (test code = 140 mmol/L 135-145 6059297559) K (test code = 3.8 mmol/L 3.5-5 5488338552) CL (test code = 107 mmol/L 98-108 3719031983) CO2 TOTAL (test code = 24 mmol/L 23-31 9122229558) AGAP (test code = 2-16 8104173301) BUN (test code = 14 mg/dL 7-23 9340767204) GLUCOSE (test code = 119 mg/dL 70-110 H 7431639440) CREATININE (test code = 1.03 mg/dL 0.6-1.25 5407124253) TOTAL BILI (test code = 0.2 mg/dL 0.1-1.6 9076045093) CALCIUM (test code = 9.6 mg/dL 8.6-10.6 1892996855) T PROTEIN (test code = 7.8 g/dL 6.3-8.2 1658181639) ALBUMIN (test code = 4.9 g/dL 3.5-5 3419724816) ALK PHOS (test code = 69 U/L 34-122 1021796754) ALTv (test code = 47 U/L 5-50 1742-6) AST(SGOT) (test code = 30 U/L 13-40 0570972511) eGFR Calculation mL/min/1.73m2 (Non-) (test code = 7802740487) eGFR Calculation mL/min/1.73m2 () (test code = 3752244775) EVERTON (test code = EVERTON) Association of [...] tests). Lab Interpretation Abnormal (test code = 75354-2) [facility]2020-01-20 02:28:00 Test Item Value Reference Range Interpretation Comments LIPASE (test code = 1061196604) 103 U/L 0-220 Lab Interpretation (test code = Normal 57188-7) [facility] WITH [id number] 02:09:00 Test Item Value Reference Range Interpretation [...] (test code = 35.8 fL 38.5-51.6 L 72147-0) RDW-CV (test code = 11.8 % 12.1-15.4 L 788-0) PLT (test code = See_Comment [Automated 777-3) message] The sy stem which generated this result transmitted reference range : 150 - 328 10*3/ ?L. The reference r abhijit was not used to interpret this result as normal/abnormal . MPV (test code = 10.2 fL 9.8-13 35415-8) NRBC/100 WBC (test See_Comment [Automat ed code = 8888303318) message] The system which generated this result transmitted reference range : 0.0 - 10.0 /100 WBCs. The refer ence range was not u sed to interpret th is result as normal/abnormal . NRBC x10^3 (test code <0.01 See_Comment [Auto mated = 3991682803) message] The s ystem which generated this result transmitted reference range : 10*3/?L. The reference range was not used to interpret this result as normal/abnormal . GRAN MAT (NEUT) % 59.2 % (test code = 770-8) IMM GRAN % (test code 0.20 % = 6329605337) LYMPH % (test code = 31.1 % 736-9) MONO % (test code = 8.5 % 5905-5) EOS % (test code = 0.8 % 713-8) BASO % (test code = 0.2 % 706-2) GRAN MAT x10^3(ANC) 5.01 10*3/uL 1.99-6.95 (test code = 6697720192) IMM GRAN x10^3 (test <0.03 0-0.06 code = 8042575251) LYMPH x10^3 (test code 2.63 10*3/uL 1.09-3.23 = 731-0) MONO x10^3 (test code 0.72 10*3/uL 0.36-1.02 = 742-7) EOS x10^3 (test code = 0.07 10*3/uL 0.06-0.53 711-2) BASO x10^3 (test code <0.03 0.01-0.09 = 704-7) Lab Interpretation Abnormal (test code = 89392-7) [facility]/PELVIS W/O [id number] 19:08:00NPO 4 hours. Do not withhold medsProcedure: [...] MD 06/12/20177:01 PMDictated By: ENZO CABRERADate: 06/12/2017 19:07[facility] PATEL [id number] 18:51:00 Test Item Value Reference Range Interpretation [...] ( 4 - SerumAlbumin)] EGFR if >60 [place] (test code mL/min/1.73m\\ = EGFRAA) S\\2 EGFR if Non- >60 Estimate d Glomerular [place] (test code mL/min/1.73m\\ Filtrat ion Rate (eGFR) = EGFRNA) S\\2 Reference Inter vals Decision Points for 18 years and older and average body ma ss: >= 60 Does not exc lude kidney disease. 30 - 59 Suggests mod erate chronic kidney disease and indicates t he need for further investigation including asses sment of proteinuria and cardiovascular factors. < 30 U sually indicates a nee d for referral for assessment and management of c hronic kidney failure. Anion Gap (test 11 code = GAP) [facility] WITH AUTO [id number] 18:02:00 Test Item Value Reference Range Interpretation [...] (test code = 0 /100WBC 0-2 NRBC_AUTO) [facility] [id number] 17:32:00 Test Item Value Reference Range Interpretation Comments Color (test code = UCOLR) Yellow Lt. Yellow A Clarity (test code = UCLAR) Clear Glucose (test code = UGLUC) Negative Negative N Bilirubin (test code = UBILI) Negative Negative N Ketones (test code = UKET) Negative Negative N Specific Conifer (test code = 1.015 1.005-1.030 A USPGR) Blood (test code = UBLD) Negative Negative N PH (test code = UPH) 7.0 4.5-8.0 A Protein (test code = UPROT) Negative Negative N Urobilinogen (test code = U UROB) 0.2 E.U./dL >0.2 A Nitrite (test code = UNITR) Negative Negative N Leukocyte Esterase (test code = Negative Negative N KULWANT) Formerly Named [facility]"
[2022-08-04] MEDS ORDERED: predniSONE 20 MG TAB ONE (21:33)
[2022-08-04] MEDS ORDERED: DIPHENHYDRAMINE 25 MG TAB/CAP ONE (21:33)
[2022-08-04] MEDS ORDERED: FAMOTIDINE 20 MG TAB ONE (21:33)
--- NOTE | 2022-08-04 21:59 | EDPHYS ---
Physician Documentation [facility] Name: Sunny Angel Age: 31 yrs Sex: Male : 1990 Arrival Date: 08/04/2022 Time: 19:48 Bed 16 Private MD: ED Physician Rodolfo Gilliland HPI: 08/04 21:58 This 31 yrs old Male presents to ER via Ambulatory with complaints of Migraine, Arm ms3 Pain, Numbness, Rash. 21:58 31-year-old male presents to the emergency department for allergic reaction after ms3 taking trimethoprim/sulfamethoxazole for suspected head pain due to dental infection. Patient states he took the tablet approximately 1 hour prior to arrival. Patient states his discomfort is a 9/10. Patient denies alleviating or inciting factors. Patient notes he has a blister on his penis, and itching of his hands.. Historical: - Allergies: 20:18 Latex, Natural Rubber; lg3 20:18 SEAFOOD; lg3 20:18 Sulfamethazine; lg3 - Home Meds: 20:18 sertraline 100 mg Oral tab 1 tab once daily [Active]; Seroquel Oral [Active]; Buspirone lg3 Oral [Active]; - PSHx: 20:18 hernia; oral SX; lg3 - Immunization history:: Adult Immunizations unknown, Client reports having NOT received the Covid vaccine. Flu vaccine is not up to date. - Social history:: Smoking status: Patient reports the use of cigarette tobacco products, smokes two packs cigarettes per day. Patient/guardian denies using alcohol, street drugs. ROS: 21:58 Constitutional: Negative for fever, and chills. Neck: Negative for injury, pain, and ms3 swelling, Cardiovascular: Negative for chest pain, and palpitations. Respiratory: Negative for shortness of breath, cough, wheezing, and pleuritic chest pain, Abdomen/GI: Negative for abdominal pain, nausea, vomiting, diarrhea, and constipation. 21:58 Skin: Positive for rash. 21:58 All other systems are negative. Exam: 21:58 Constitutional: This is a well developed, well nourished patient who is awake, alert, ms3 and in no acute distress. Head/Face: Normocephalic, atraumatic. Neck: Trachea midline, no cervical lymphadenopathy. Supple, full range of motion without nuchal rigidity, or vertebral point tenderness. No Meningismus. Chest/axilla: Normal chest wall appearance and motion. Nontender with no deformity. Cardiovascular: Regular rate and rhythm with a normal S1 and S2. No gallops, murmurs, or rubs. Normal PMI, no JVD. No pulse deficits. Respiratory: Lungs have equal breath sounds bilaterally, clear to auscultation and percussion. No rales, rhonchi or wheezes noted. No increased work of breathing, no retractions or nasal flaring. Abdomen/GI: Soft, non-tender, with normal bowel sounds. No distension or tympany. No guarding or rebound. No evidence of tenderness throughout. 21:58 : Male external genitalia: Blister on dorsum of glans penis. 21:58 Skin: Erythema of both hands with pruritus. Vital Signs: 20:14 BP 142 / 89; Pulse 88; Resp 17 S; Temp 98.8(O); Pulse Ox 99% on R/A; Weight 81.65 kg lg3 (R); Height 5 ft. 4 in. (162.56 cm) (R); Pain 6/10; 22:08 BP 139 / 76; Pulse 82; Resp 17; Temp 98.6; Pulse Ox 100% on R/A; Pain 0/10; ke1 20:14 Body Mass Index 30.90 (81.65 kg, 162.56 cm) lg3 MDM: 20:27 Patient medically screened. ms3 21:58 Differential diagnosis: Differential diagnosis includes allergic reaction, muscle ms3 spasm. Data reviewed: vital signs, nurses notes, and as a result, I will discharge patient. Counseling: I had a detailed discussion with the patient and/or guardian regarding: the historical points, exam findings, and any diagnostic results supporting the discharge/admit diagnosis, the need for outpatient follow up, to return to the emergency department if symptoms worsen or persist or if there are any questions or concerns that arise at home. ED course: On reevaluation patient's symptoms improved, pruritus resolved, oropharynx remains patent. Patient to follow-up with primary care physician in 2 to 3 days. Patient understands and agrees with plan. All questions were answered. Return precautions discussed include worsening symptoms, or any other concerns.. Administered Medications: 21:32 Drug: Benadryl (diphenhydrAMINE) 50 mg Route: PO; ke1 22:09 Follow up: Response: Marked relief of symptoms ke1 21:32 Drug: predniSONE 60 mg Route: PO; ke1 22:08 Follow up: Response: Marked relief of symptoms ke1 21:32 Drug: Pepcid (famotidine) 20 mg Route: PO; ke1 22:08 Follow up: Response: Marked relief of symptoms ke1 Disposition Summary: 08/04/22 21:58 Discharge Ordered Location: Home ms3 Condition: Stable ms3 Diagnosis - Allergic reaction ms3 - Penile blister ms3 - Pruritis ms3 Followup: ms3 - With: Charles Bustamante DO - When: 2 - 3 days - Reason: Recheck today's complaints Discharge Instructions: - Discharge Summary Sheet ms3 - Blisters, Adult ms3 Forms: - Medication Reconciliation Form ms3 - Thank You Letter ms3 - Antibiotic Education ms3 - Prescription Opioid Use ms3 Prescriptions: - Prednisone 20 mg Oral Tablet - take 2 tablets by ORAL route once daily for 5 days; 10 tablet; Refills: 0, ms3 Product Selection Permitted Signatures: Lien Gould, RN RN lg3 Rodolfo Gilliland DO DO ms3 Yuki Gan RN RN ke1 Corrections: (The following items were deleted from the chart) 20:20 20:18 PMHx: depressive disorder; lg3 lg3
--- NOTE | 2022-08-04 21:59 | ER ---
Nurse's Notes [facility] Name: Sunny Angel Age: 31 yrs Sex: Male : 1990 Arrival Date: 08/04/2022 Time: 19:48 Bed 16 Private MD: Diagnosis: Allergic reaction;Penile blister;Pruritis Presentation: 08/04 20:14 Chief complaint: Patient states: migraine starting yesterday. pain starting in jaw area lg3 and radiates to back of head. thought it may be a bad tooth so i took an antibiotic my dad gave me. now i have a rash on my genitals, feet and hands. now im starting to get blisters on my genitals. i am also having pain in my right shoulder making my arm numb. Coronavirus screen: Client denies travel out of the [place] in the last 14 days. At this time, the client does not indicate any symptoms associated with coronavirus-19. Ebola Screen: No symptoms or risks identified at this time. Initial Sepsis Screen: Does the patient meet any 2 criteria? No. Patient's initial sepsis screen is negative. Does the patient have a suspected source of infection? No. Patient's initial sepsis screen is negative. Risk Assessment: Do you want to hurt yourself or someone else? Patient reports no desire to harm self or others. Onset of symptoms was August 03, 2021. 20:14 Method Of Arrival: Ambulatory lg3 20:14 Acuity: GILBERT 4 lg3 Triage Assessment: 20:18 General: Appears in no apparent distress. uncomfortable, Behavior is calm, cooperative. lg3 Pain: Complains of pain in head, right shoulder, right arm, genitals. EENT: No deficits noted. No signs and/or symptoms were reported regarding the EENT system. Neuro: No deficits noted. Braun Agitation-Sedation Scale (RASS): 0 - Alert and Calm Level of Consciousness is awake, alert, obeys commands, Oriented to person, place, time, situation. Cardiovascular: No deficits noted. Denies chest pain, shortness of breath, Capillary refill < 3 seconds Clubbing of nail beds is absent JVD is absent Patient's skin is warm and dry. Respiratory: No deficits noted. Airway is patent Trachea midline Respiratory effort is even, unlabored, Respiratory pattern is regular, symmetrical. GI: No deficits noted. No signs and/or symptoms were reported involving the gastrointestinal system. : No deficits noted. No signs and/or symptoms were reported regarding the genitourinary system. Derm: Rash noted that is urticaria. Musculoskeletal: No deficits noted. No signs and/or symptoms reported regarding the musculoskeletal system. Circulation, motion, and sensation intact. Range of motion: intact in all extremities. Historical: - Allergies: 20:18 Latex, Natural Rubber; lg3 20:18 SEAFOOD; lg3 20:18 Sulfamethazine; lg3 - Home Meds: 20:18 sertraline 100 mg Oral tab 1 tab once daily [Active]; Seroquel Oral [Active]; Buspirone lg3 Oral [Active]; - PSHx: 20:18 hernia; oral SX; lg3 - Immunization history:: Adult Immunizations unknown, Client reports having NOT received the Covid vaccine. Flu vaccine is not up to date. - Social history:: Smoking status: Patient reports the use of cigarette tobacco products, smokes two packs cigarettes per day. Patient/guardian denies using alcohol, street drugs. Screenin:[facility] ED Fall Risk Assessment (Adult) History of falling in the last 3 months, ke1 including since admission No falls in past 3 months (0 pts) Confusion or Disorientation No (0 pts) Intoxicated or Sedated No (0 pts) Impaired Gait No (0 pts) Mobility Assist Device Used No (0 pt) Altered Elimination No (0 pt) Score/Fall Risk Level 0 - 2 = Low Risk. Abuse screen: Denies threats or abuse. Nutritional screening: No deficits noted. Tuberculosis screening: No symptoms or risk factors identified. Assessment: 22:08 Reassessment: Patient states feeling better. Patient states symptoms have improved. ke1 Vital Signs: 20:14 BP 142 / 89; Pulse 88; Resp 17 S; Temp 98.8(O); Pulse Ox 99% on R/A; Weight 81.65 kg lg3 (R); Height 5 ft. 4 in. (162.56 cm) (R); Pain 6/10; 22:08 BP 139 / 76; Pulse 82; Resp 17; Temp 98.6; Pulse Ox 100% on R/A; Pain 0/10; ke1 20:14 Body Mass Index 30.90 (81.65 kg, 162.56 cm) lg3 ED Course: 19:48 Patient arrived in ED. rg4 20:18 Triage completed. lg3 20:18 Arm band placed on right wrist. lg3 20:23 Rodolfo Gilliland DO is Attending Physician. ms3 21:22 Yuki Gan, SAM is Primary Nurse. ke1 21:33 Bed in low position. Call light in reach. ke1 21:33 No provider procedures requiring assistance completed. ke1 21:57 Charles Bustamante DO is Referral Physician. ms3 22:09 Patient did not have IV access during this emergency room visit. ke1 Administered Medications: 21:32 Drug: Benadryl (diphenhydrAMINE) 50 mg Route: PO; ke1 22:09 Follow up: Response: Marked relief of symptoms ke1 21:32 Drug: predniSONE 60 mg Route: PO; ke1 22:08 Follow up: Response: Marked relief of symptoms ke1 21:32 Drug: Pepcid (famotidine) 20 mg Route: PO; ke1 22:08 Follow up: Response: Marked relief of symptoms ke1 Medication: 22:09 VIS not applicable for this client. ke1 Outcome: 21:58 Discharge ordered by MD. ms3 22:09 Discharged to home ambulatory. ke1 22:09 Condition: good 22:09 Discharge instructions given to patient. 22:09 Patient left the ED. ke1 Signatures: Heather Gomez rg4 Lien Gould RN RN lg3 Rodolfo Gilliland DO DO ms3 Yuki Gan RN RN ke1 Corrections: (The following items were deleted from the chart) 20:20 20:18 PMHx: depressive disorder; lg3 lg3
[2022-08-04 22:30] VITALS: BP 139/76; TEMP 98.6; O2SAT 100
== END 2022-08-04 22:09 | disposition home or self-care (01) ==
LOC: ER 19:44
DX: L29.9 Pruritus, unspecified (principal); S30.822A Blister (nonthermal) of penis, initial encounter; F17.210 Nicotine dependence, cigarettes, uncomplicated; Z88.2 Allergy status to sulfonamides; Z91.013 Allergy to seafood; Z91.040 Latex allergy status; Z91.048 Other nonmedicinal substance allergy status
CPT/HCPCS: 99283; J7512